=== PATIENT | male | born 1955 | race Caucasian/White ===

== ENCOUNTER 2020-12-26 08:56 | Outpatient (REF) | payer MEDICAID, SELFPAY | END 2020-12-26 08:57 | disposition home or self-care (01) | LOC: HO.HMGCX 08:56 | PROVIDERS: PCP Internal Medicine; Visit Provider Internal Medicine | DX: Z13.89 Encounter for screening for other disorder (principal) ==

== ENCOUNTER 2021-01-29 10:04 | Outpatient (REF) | payer MEDICAID, SELFPAY | END 2021-01-29 10:05 | disposition home or self-care (01) | LOC: HO.HMGCX 10:04 | PROVIDERS: PCP Internal Medicine; Visit Provider Internal Medicine | DX: Z13.89 Encounter for screening for other disorder (principal) ==

== ENCOUNTER 2021-02-12 09:00 | Outpatient (RCR) | payer MEDICAID, SELFPAY ==
--- NOTE | 2020-12-26 10:46 | MHC.PT.EP ---
[facility] [place] [facility] [place] [facility] [place] Office [address] Megan Hogan [address] [phone] F: [phone] F: [phone] F: [phone] F: [phone] Physical Therapy Plan of Care Date of Evaluation: 12/26/20 Date of Surgery: Diagnosis: CHRONIC MIDLINE LBP Assessment: 65 YO MALE REF TO PT W H/O PROGRESSIVE Rt L/S PAIN- HE HAS A H/O ELTON TKR, AND CURRENTLY HAS (+) PELVIC ASYMM CREATING A LLI. Pt IS RETIRED- HE HAS DECR POSTURE/ BODY MECH AWARENESS, GEN PROX LEs AND CORE WEAKNESS, (+) PELVIC ASYMM NOTED, (+) SOFT TISSUE TENSION IN ELTON L/S PS MM, AND DECR TRUNK/ PROX LEs HYPOMOBILITY. HE DENIES BOWEL/ BLADDER SXS OR MOTOR DEFICITS. FUNCTIONALLY, Pt HAS DECR WIL TO STANDING, WALKING, GETTING IN/OUT OF CAR AT TIMES, AND SLEEPING COMFORTABLY. HIS LS XRAYS ARE PENDING. Pt IS A GOOD PT CANDIDATE TO ADDRESS THE ABOVE AND IMPROVE SELF-SX MGMT TO ALLOW IMPROVED FUNCT MMOB WIL. Frequency and Duration: The patient will be seen 2 X wk X 5 wks Short Term Goals: DECR Pt'S LBP TO 2-3/10 IN 2 WKS Pt DEMON IMPROVED SELF-CORRECT OF POSTURE AND BODY MECH TO REDUCE L/S PAIN IN 2 WKS Long-Term Goals: Pt RESUME REG ADLs EVIDENT W IMPROVED OSWESTRY SCORE BY 10 POINTS (23/50 AT EVAL) IN 5 WKS Pt INDEP HEP FOR STRENGTHENING AND FLEXIB AND SX MGMT IN 5 WKS Treatment Plan: Modalities to reduce pain, spasms and effusion. Manual therapy to restore motion and function. Therapeutic exercise to improve strength and flexibility. Neuromuscular re-education for posture and balance. Therapeutic activities to return to functional activities of daily living. Electronically signed by: Kiki Gaytan,PT Please sign and return to therapist. Thank you for your referral.
--- NOTE | ~2021-02-12 | XR_ITS ---
EXAMINATION: XR LUMBOSACRAL SPINE CLINICAL INFORMATION: Low back pain. COMPARISON: None TECHNIQUE: Three views of the lumbosacral spine. FINDINGS: There is normal lumbar lordosis. The vertebral heights, alignment and disc heights are normal. There is mild ventral endplate spondylosis L3, L4 and L5 vertebra. No lytic or sclerotic process seen. The paravertebral soft tissues are normal. XR/XR lumbar spine 2-3V IMPRESSION: Degenerative ventral spondylosis lower lumbar spine. No visible acute fracture or dislocation seen.
--- NOTE | ~2021-02-12 | XR_ITS ---
EXAMINATION: XR LUMBOSACRAL SPINE CLINICAL INFORMATION: Low back pain COMPARISON: None TECHNIQUE: Three views of the lumbosacral spine. FINDINGS: There is normal lumbar segmentation with 5 nonrib-bearing lumbar vertebrae of normal height and normal lumbar lordosis. There is no lumbar vertebral compression or destructive process or spondylolisthesis. There are degenerative disc changes L4-L5 with disc narrowing and vertebral spurring. Mild facet degeneration present L4-S1. There is multilevel vertebral body spurring. The SI joints and visualized sacrum are unremarkable. XR/XR lumbar spine 2-3V IMPRESSION: 1. Degenerative disc changes L4-L5. 2. Facet degeneration L4-S1. 3. No vertebral compression or destructive process.
--- NOTE | 2021-02-12 09:56 | MHC.PT.EP ---
[facility] [place] Office [place] Office [place] Office [address] Megan Hogan [address] [phone] F: [phone] F: [phone] F: [phone] F: [phone] Physical Therapy Plan of Care Date of Evaluation: Date of Surgery: Diagnosis: CHRONIC MIDLINE LBP Assessment: 65 YO MALE REF TO PT W H/O PROGRESSIVE Rt L/S PAIN- HE HAS A H/O EL[place] TKR, AND CURRENTLY HAS (+) PELVIC ASYMM CREATING A LLI. Pt IS RETIRED- HE HAS DECR POSTURE/ BODY MECH AWARENESS, GEN PROX LEs AND CORE WEAKNESS, (+) PELVIC ASYMM NOTED, (+) SOFT TISSUE TENSION IN EL[place] L/S PS MM, AND DECR TRUNK/ PROX LEs HYPOMOBILITY. HE DENIES BOWEL/ BLADDER SXS OR MOTOR DEFICITS. FUNCTIONALLY, Pt HAS DECR WIL TO STANDING, WALKING, GETTING IN/OUT OF CAR AT TIMES, AND SLEEPING COMFORTABLY. HIS LS XRAYS ARE PENDING. Pt IS A GOOD PT CANDIDATE TO ADDRESS THE ABOVE AND IMPROVE SELF-SX MGMT TO ALLOW IMPROVED FUNCT MMOB WIL. Frequency and Duration: The patient will be seen 2 X wk X 5 wks Short Term Goals: DECR Pt'S LBP TO 2-3/10 IN 2 WKS - met Pt DEMON IMPROVED SELF-CORRECT OF POSTURE AND BODY MECH TO REDUCE L/S PAIN IN 2 WKS - met Ict Development Manager Goals: Pt RESUME REG ADLs EVIDENT W IMPROVED OSWESTRY SCORE BY 10 POINTS (23/50 AT EVAL) IN 5 WKS Pt INDEP HEP FOR STRENGTHENING AND FLEXIB AND SX MGMT IN 5 WKS - met Treatment Plan: Modalities to reduce pain, spasms and effusion. Manual therapy to restore motion and function. Therapeutic exercise to improve strength and flexibility. Neuromuscular re-education for posture and balance. Therapeutic activities to return to functional activities of daily living. Electronically signed by: Judy Rios PT Please sign and return to therapist. Thank you for your referral.
== END 2021-02-12 09:57 | disposition home or self-care (01) ==
LOC: HO.PTCHIC 09:00
PROVIDERS: PCP Internal Medicine; Visit Provider Internal Medicine
DX: M54.5 Low back pain (principal)
CPT/HCPCS: 72100; 97014; 97110; 97140; 97162

== ENCOUNTER → 2022-02-20 09:26 | Outpatient (BNVA) | payer MEDICARE, MEDICAID, SELFPAY | PROVIDERS: PCP Internal Medicine; Visit Provider Physician Assistant | DX: Z01.818 Encounter for other preprocedural examination (principal) | CPT/HCPCS: 99202 ==

== ENCOUNTER → 2022-02-24 12:53 | Day surgery (SDC) | payer MEDICARE, MEDICAID, SELFPAY ==
--- NOTE | 2022-02-24 12:39 | HO.ANESPROP2 ---
[facility] Active Problems Active Problems: All Active Problems (Updated 02/21/22 @ 11:41 by Deborah Hess RN) Encounter for screening colonoscopy (Acute) Past Medical History Medical History Asthma Diabetes Elevated cholesterol HTN (hypertension) Sciatica Shoulder pain with history of repair of rotator cuff Sleep apnea Family History Family History Father Heart disease HTN (hypertension) Mother No problems noted. Sister Diabetes Family history of problems with anesthesia: No Surgical History Surgical History History of carpal tunnel release Hx of elbow surgery Hx of eye surgery Hx of hernia repair Hx of knee surgery Hx of tonsillectomy History of Problems with Anesthesia: No Social History Social History Household Members: Spouse Alcohol intake: current Patient Tobacco Use Status: Never used Tobacco Substance Use Type: Marijuana Substance Use Type Other:: edible Substance Use Frequency: Daily Are you DNR?: No Advance Directives: No Advance Directives Information Provided: Yes Current 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 status: retired Meds Allergies Allergy/AdvReac Type Severity Reaction Status Date / Time iron Allergy Severe Rash Verified 02/24/22 13:06 Home Medications Medication Instructions Recorded Confirmed Last Taken Type aspirin 81 mg tablet,delayed 81 mg PO DAILY 02/20/22 02/24/22 02/24/22 05:30 History release atorvastatin 40 mg tablet 40 mg PO BEDTIME 02/20/22 02/24/22 Unknown History celecoxib 200 mg capsule 200 mg PO DAILY 02/20/22 02/24/22 02/24/22 05:30 History cholecalciferol (vitamin D3) 25 25 mcg PO DAILY 02/20/22 02/24/22 02/24/22 05:30 History mcg (1,000 unit) capsule cyanocobalamin (vitamin B-12) 1,000 mcg PO DAILY 02/20/22 02/24/22 02/24/22 05:30 History 1,000 mcg tablet (Vitamin B-12) empagliflozin 25 mg tablet 25 mg PO DAILY 02/20/22 02/24/22 Unknown History (Jardiance) glipizide 5 mg tablet 2.5 mg PO DAILY 02/20/22 02/24/22 Unknown History lisinopril 10 mg tablet 10 mg PO DAILY 02/20/22 02/24/22 02/24/22 05:30 History metformin 1,000 mg tablet 1,000 mg PO BID 02/20/22 02/24/22 Unknown History metoprolol tartrate 50 mg tablet 50 mg PO BID 02/20/22 02/24/22 02/24/22 05:30 History montelukast 10 mg tablet 10 mg PO DAILY 02/20/22 02/24/22 Unknown History Exam Exam Date and Time: February 24, 2022 1239 Airway Mallampati Class: II TM Dist: >3cm Neck ROM: Full Loose/Missing/Broken Teeth: No Heart: regular rate and rhythm Lungs: clear Assessment and Plan Assessment Anesthesia Assessment: Anesthesia Plan Discussed and Chart Reviewed Final Anesthetic Review Family History of Problems with Anesthesia: No History of Problems with Anesthesia: No NPO: Yes ASA Class: III Final Preanesthetic Review: No Changes in Pt Med Stat, Meds/Allgs Chart Reviewed, Consent Obtained/Reviewed and Anes Risks/Benef Reviewed Patient Risk: Intermediate Procedure Risk: Intermediate Assessment/Block/Sedation in SS: Assess/Block/Sedation-SS Anesthetic Plan Anesthetic Plan: MAC: and Agree w/ Assess. and Plan Disposition: Standard PACU
--- NOTE | 2022-02-24 12:47 | MHC.SHP ---
Pre-Procedural Eval Section A Date of Service: 02/24/22 The patient is an INPATIENT: No The History & Physical has been completed within 30 days and I have reviewed it.: Yes Section B Chief Complaint: screening Allergies: Allergies Allergy/AdvReac Type Severity Reaction Status Date / Time iron Allergy Severe Rash Verified 02/20/22 09:29 Plan Diagnosis/Plan: Change (colonoscopy cancelled due to new onset AF) Pt arrived for colonoscopy procedure. EKG showed new onset AF. Pt hemodynamically stable and denies chest pain or shortness of breath. Pt transferred to the ER for further management. Colonoscopy will be rescheduled after Cardiac workup is completed.
--- NOTE | 2022-02-24 12:47 | PM.OP ---
Brief Operative Note Date of Service: 02/24/22 Procedure: COLONOSCOPY TILL CECUM WITH Consent: Indications for the procedure and potential complications of bleeding, perforation, reaction to medications and missed diagnosis were discussed with the patient and informed consent was obtained. Instrument: Olympus PCF H 190 L variable stiffness pediatric colonoscope Monitoring: Vital signs and clinical assessment, intermittent blood pressure monitoring, continuous EKG monitoring, Pulse oximetry and Carbon Dioxide monitoring were done throughout the procedure. Colon withdrawl time was [] minutes. Procedure: The patient was placed in the left lateral decubitis position and pre-procedure medications were administered. After a digital rectal examination of the ano-rectum, the video colonoscope was inserted into the rectum and advanced through the colon to the cecum. The colonoscope was slowly withdrawn in a retrograde panoramic fashion and the colon mucosa was carefully examined including a retroflexed view of the rectum. Findings and interventions are described below. Procedure Difficulty: [Without difficulty] [LLQ pressure applied to intubate the transverse colon/cecum] Findings: Terminal Ileum: Not evaluated Cecum: Normal Ascending Colon: Normal Transverse Colon: Normal Descending Colon: Normal Sigmoid Colon: Moderate diverticulosis Rectum: Normal Ano-rectum: Moderate internal hemorrhoids Colon preparation: [Excellent] [Good] [Fair] [poor] Impression and Post Procedure Diagnosis: Colonoscopy Findings: [] polyps removed Moderate diverticulosis seen in the []colon Moderate hemorrhoids on retroflexed exam. Plan: Await pathology results Patient has an appointment on 03/19/22 in the GI Clinic with EZ Chang. Repeat Colonoscopy interval based on path results - in 3-5 years if polyps are adenomatous and 10 years if polyps are hyperplastic. Above findings were reviewed with the patient and [colon polyps] and [diverticulosis] handouts were given in the discharge area Surgeon: Eddy Gomez MD Was an Police Officer Booking used for this Procedure?: No
--- NOTE | 2022-02-24 12:48 | W.PM.OPN ---
Operative Note Operative Note Date of Service: 02/24/22
[2022-02-24 13:09] VITALS: BMI 47.0
[2022-02-24 13:24] LABS: Glucose, Whole Blood 125 mg/dL (60-115)
--- NOTE | 2022-02-24 13:37 | ECG_ITS ---
Test Reason : IRREGULAR HEART RATE Blood Pressure : / mmHG Vent. Rate : 085 BPM Atrial Rate : 000 BPM P-R Int : 000 ms QRS Dur : 100 ms QT Int : 346 ms P-R-T Axes : 000 101 015 degrees QTc Int : 411 ms Atrial fibrillation Rightward axis Low voltage QRS Septal infarct , age undetermined Abnormal ECG No previous ECGs available Referred By: Noel Shine Electronically Signed By:Sp Akhtar
--- NOTE | 2022-02-24 13:40 | PC.NURSE ---
EKG entered for question of afib per anesthesia
--- NOTE | 2022-02-24 14:13 | PC.NURSE ---
EKG showing an abnormal rhythm. Dr. Gomez recommending transfer to ED, pt spoke to and in agreement to be transferred
--- NOTE | 2022-02-24 14:27 | PM.EVENT ---
Event Note Date of Service: 02/24/22 Event Note: Pt arrived for colonoscopy procedure. EKG showed new onset AF. Pt hemodynamically stable and denies chest pain or shortness of breath. Pt transferred to the ER for further management. Colonoscopy will be rescheduled after Cardiac workup is completed.
== END | disposition home or self-care (01) ==
PROVIDERS: PCP Internal Medicine; Visit Provider Internal Medicine Gastroenterology
DX: Z12.11 Encounter for screening for malignant neoplasm of colon (principal); Z53.09 Procedure and treatment not carried out because of other contraindication; R94.31 Abnormal electrocardiogram [ECG] [EKG]
CPT/HCPCS: 82947; 93005

== ENCOUNTER 2022-02-24 14:58 | Emergency (ER) | payer MEDICARE, MEDICAID, SELFPAY ==
--- NOTE | ~2022-02-24 | XR_ITS ---
EXAMINATION: XR CHEST CLINICAL INFORMATION: New onset Atrial fibrillation COMPARISON: None TECHNIQUE: Frontal view of the chest was obtained. FINDINGS: No significant abnormality is noted involving the heart, lungs, mediastinum, bony thorax or soft tissues. Some left basilar atelectasis is present. There has been surgical resection of the distal end of the right clavicle XR/XR chest 1V IMPRESSION: No acute intrathoracic disease
[2022-02-24 14:59] VITALS: BP 125/75; PULSE 96; RESP 18; TEMP 36.6; O2SAT 98; BMI 47.0
--- NOTE | 2022-02-24 15:27 | ED.GENADULT ---
HPI - General Adult General Chief complaint: General Medical Stated complaint: abnormal heart rate Time Seen by Provider: 02/24/22 15:27 Source: patient Mode of arrival: wheelchair Limitations: no limitations History of Present Illness HPI narrative: Comes to emergency room from the endoscopy suite. Today, patient was supposed to get a colonoscopy. Before they started, it was noted that patient was in atrial fibrillation. Patient does not have history of AFib. Patient takes aspirin and celecoxib. Patient denies any symptoms. Patient feels well. Patient's rate has been well controlled, less than 100. Related Data Home Medications Medication Instructions Recorded Confirmed aspirin 81 mg tablet,delayed 81 mg PO DAILY 02/20/22 02/24/22 release atorvastatin 40 mg tablet 40 mg PO BEDTIME 02/20/22 02/24/22 celecoxib 200 mg capsule 200 mg PO DAILY 02/20/22 02/24/22 cholecalciferol (vitamin D3) 25 25 mcg PO DAILY 02/20/22 02/24/22 mcg (1,000 unit) capsule cyanocobalamin (vitamin B-12) 1,000 mcg PO DAILY 02/20/22 02/24/22 1,000 mcg tablet (Vitamin B-12) empagliflozin 25 mg tablet 25 mg PO DAILY 02/20/22 02/24/22 (Jardiance) lisinopril 10 mg tablet 10 mg PO DAILY 02/20/22 02/24/22 metformin 1,000 mg tablet 1,000 mg PO BIDWM 02/20/22 02/24/22 metoprolol tartrate 50 mg tablet 50 mg PO BID 02/20/22 02/24/22 montelukast 10 mg tablet 10 mg PO BEDTIME 02/20/22 02/24/22 albuterol sulfate 90 mcg/actuation 1 - 2 inh inhalation Q4-6H PRN 02/24/22 02/24/22 aerosol inhaler (Ventolin HFA) Shortness Of Breath fluticasone propionate 50 2 spray intranasal DAILY 02/24/22 02/24/22 mcg/actuation nasal spray,suspension glipizide 5 mg tablet, extended 1 tab PO DAILY 02/24/22 02/24/22 release 24 hr Allergies Allergy/AdvReac Type Severity Reaction Status Date / Time iron Allergy Severe Rash Verified 02/24/22 13:06 Review of Systems Review of Systems: Constitutional : No Weight loss, No Fever, No Chills, No Night Sweats, No Fatigue, No Malaise ENT/Mouth : No Hearing loss, No Ear Pain, No Nasal Congestion, No Sinus Pain, No Hoarseness, No sore throat, No Rhinorrhea, No Swallowing Difficulty Eyes: No Eye Pain, No Swelling, No Redness, No Foreign Body, No Discharge, No Vision Changes Cardiovascular : No Chest Pain, No SOB, No Dyspnea on Exertion, No Orthopnea, No Edema, No Palpitations Respiratory : No Cough, No Sputum, No Wheezing, No Smoke Exposure, No Dyspnea Gastrointestinal : No Nausea, No Vomiting, No Diarrhea, No Constipation, No abdominal Pain, No Hematochezia, No Melena Genitourinary : no irregular bleeding, No Dysuria, No Urinary Frequency, No Hematuria, No Urinary Incontinence, No Urgency, No Flank Pain, No Urinary Flow Changes, No Hesitancy Musculoskeletal : No joint pain, No Myalgias, No Joint Swelling Skin : No Skin Lesions, No rash Neuro : No Weakness, No Numbness, No Paresthesias, No Loss of Consciousness, No Dizziness, No Headache Psych : No Anxiety/Panic, No Depression, No SI/HI/AH/VH, No Social Issues, Heme/Lymph: No Bruising, No Bleeding,No Lymphadenopathy Endocrine : No Polyuria, No Polydipsia, No Temperature Intolerance PMFSH Past Medical History Medical History Asthma Diabetes Elevated cholesterol HTN (hypertension) Sciatica Shoulder pain with history of repair of rotator cuff Sleep apnea Surgical History History of carpal tunnel release Hx of elbow surgery Hx of eye surgery Hx of hernia repair Hx of knee surgery Hx of tonsillectomy Family History Family History Father Heart disease HTN (hypertension) Mother No problems noted. Sister Diabetes Social History Social History Household Members: Spouse Alcohol intake: current Patient Tobacco Use Status: Never used Tobacco Substance Use Type: Marijuana Advance Directives: No Advance Directives Information Provided: No Current 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 status: retired Physical Exam ED Vital Signs: Vital Signs - 24 hr 02/24/22 14:59 02/24/22 16:07 02/24/22 18:12 Temperature 98 F 98.7 F 98.3 F Pulse Rate 96 78 84 Respiratory Rate 18 14 13 Blood Pressure 125/75 129/93 H 105/66 Pulse Oximetry 98 95 98 Oxygen Delivery Method Room Air Room Air Room Air BMI result Body Mass Index 47.0 Const Other: Appearance: Alert. Oriented X3. No acute distress. Well-appearing Eyes: Pupils equal, round and reactive to light. ENT: Pharynx normal. Neck: Normal inspection. Neck supple. No lymph nodes noted. No crepitus CVS: Regularly regular heart rate, in the 70s. Pulses normal. Normal S1 and S2 Respiratory: No respiratory distress. Breath sounds normal. No Wheezing. No rales Abdomen: Soft and nontender. No rigidity. No distention. Skin: Skin warm and dry. Flushedl skin color. Normal skin turgor. Extremities: No lower extremity edema. No Lacerations. No Rash Neuro: Oriented X 3. No motor deficit. No sensory deficit. Moving all extremities. No slurred speech. CN 2 through 12 grossly intact Psych: calm, cooperative, normal affect Course Course Course Narrative: Patient is asymptomatic. All the labs and imaging are pending. Vitals are stable, patient is asymptomatic. Today, the lab is having trouble posting troponin and BNP, they have been pending for almost 2 hours now. I discussed the patient with Dr. Cano, recommends to start Eliquis. Patient states that he is not ready to start anticoagulation yet. He will talk to his primary care physician 1st and Dr. Cano in the office visit Patient is aware of the risks atrial fibrillation, including stroke. Troponin and BNP negative. Medical Decision Making Lab Data Result diagrams: 02/24/22 16:03 02/24/22 16:01 Labs: Lab Results 02/24/22 02/24/22 02/24/22 Range/Units 16:01 16:01 16:03 WBC 6.3 (4.8-10.8) X10*3/uL RBC 6.43 H (4.60-5.80) X10*6/uL Hgb 17.6 (14.0-18.0) g/dl Hct 55.1 H (42.0-52.0) % MCV 85.7 (80.0-98.0) fL MCH 27.4 (27.0-33.0) pg MCHC 31.9 (31.0-36.0) g/dl RDW 17.3 H (11.0-16.0) % Plt Count 143 L (160-400) X10*3/uL MPV 9.3 L (9.4-12.4) fL Immature Gran % (Auto) 0.6 H (0.0-0.4) % Neut % (Auto) 72.8 (45-73) % Lymph % (Auto) 18.8 L (20-40) % [place] % (Auto) 5.4 (2-11) % Eos % (Auto) 1.9 (0-4) % Baso % (Auto) 0.5 (0-2) % Lymph # (Auto) 1.2 (1.2-4.9) X10*3/uL [place] # (Auto) 0.3 (0.1-1.2) X10*3/uL Eos # (Auto) 0.1 (0.0-0.4) X10*3/uL Baso # (Auto) 0.0 (0.0-0.2) X10*3/uL Abs Immat Gran (auto) 0.04 H (0.00-0.03) X10*3/uL Absolute Neuts (auto) 4.6 (2.0-8.3) x10*3/uL Absolute Nucleated RBC 0.000 (0.0-0.012) X10*3/uL Nucleated RBC % (auto) 0.0 (0.0-0.2) /100WBC PT 13.6 H (9.9-13.0) SEC INR 1.2 H (0.9-1.1) Sodium 136 (135-145) mmol/L Potassium 4.5 (3.3-5.1) mmol/L Chloride 104 (96-108) mmol/L Carbon Dioxide 23 (22-29) mmol/L Anion Gap 14 (12-20) BUN 14 (9-16) mg/dL Creatinine 0.95 (0.5-1.4) mg/dL Estim Creat Clear Calc 103.1 Estimated GFR > 60 Random Glucose 204 H (60-115) mg/dL Calcium 8.9 (8.4-10.2) mg/dL Magnesium 2.1 (1.6-2.6) mg/dL Total Bilirubin 1.2 H (0.0-1.0) mg/dL Direct Bilirubin 0.4 (0.0-0.5) mg/dL AST 21 (5-37) U/L ALT 23 (0-40) U/L Alkaline Phosphatase 85 (39-117) U/L Troponin I High Sens (<3.5-35.0) ng/L B-Natriuretic Peptide (<100) pg/mL Total Protein 7.6 (6.5-8.0) g/dL Albumin 4.2 (3.5-5.0) g/dL Specimen Comment 02/24/22 02/24/22 Range/Units 18:15 18:38 WBC (4.8-10.8) X10*3/uL RBC (4.60-5.80) X10*6/uL Hgb (14.0-18.0) g/dl Hct (42.0-52.0) % MCV (80.0-98.0) fL MCH (27.0-33.0) pg MCHC (31.0-36.0) g/dl RDW (11.0-16.0) % Plt Count (160-400) X10*3/uL MPV (9.4-12.4) fL Immature Gran % (Auto) (0.0-0.4) % Neut % (Auto) (45-73) % Lymph % (Auto) (20-40) % [place] % (Auto) (2-11) % Eos % (Auto) (0-4) % Baso % (Auto) (0-2) % Lymph # (Auto) (1.2-4.9) X10*3/uL [place] # (Auto) (0.1-1.2) X10*3/uL Eos # (Auto) (0.0-0.4) X10*3/uL Baso # (Auto) (0.0-0.2) X10*3/uL Abs Immat Gran (auto) (0.00-0.03) X10*3/uL Absolute Neuts (auto) (2.0-8.3) x10*3/uL Absolute Nucleated RBC (0.0-0.012) X10*3/uL Nucleated RBC % (auto) (0.0-0.2) /100WBC PT (9.9-13.0) SEC INR (0.9-1.1) Sodium (135-145) mmol/L Potassium (3.3-5.1) mmol/L Chloride (96-108) mmol/L Carbon Dioxide (22-29) mmol/L Anion Gap (12-20) BUN (9-16) mg/dL Creatinine (0.5-1.4) mg/dL Estim Creat Clear Calc Estimated GFR Random Glucose (60-115) mg/dL Calcium (8.4-10.2) mg/dL Magnesium (1.6-2.6) mg/dL Total Bilirubin (0.0-1.0) mg/dL Direct Bilirubin (0.0-0.5) mg/dL AST (5-37) U/L ALT (0-40) U/L Alkaline Phosphatase (39-117) U/L Troponin I High Sens < 3.5 (<3.5-35.0) ng/L B-Natriuretic Peptide 82 (<100) pg/mL Total Protein (6.5-8.0) g/dL Albumin (3.5-5.0) g/dL Specimen Comment DELAY Imaging Data Chest x-ray: Radiologist's impression: FINDINGS: No significant abnormality is noted involving the heart, lungs, mediastinum, bony thorax or soft tissues. Some left basilar atelectasis is present. There has been surgical resection of the distal end of the right clavicle XR/XR chest 1V IMPRESSION: No acute intrathoracic disease ECG Data Attestation: I personally reviewed and interpreted this ECG as follows: (Atrial fibrillation, heart rate 89, occasional PVCs, QTC 420) Discharge Plan Discharge Clinical Impression: Atrial fibrillation, new onset Patient Disposition: Home, Self-Care Instructions: A-fib (Atrial Fibrillation) (ED) Additional Instructions: You declined to start anticoagulation at this time. Please follow-up with your workers' compensation mediator and with her primary care physician tomorrow. If you have any worsening or new symptoms, please return to the emergency room or call 911 Prescriptions: No Action glipizide 5 mg tablet extended release 24 hr 1 tab PO DAILY albuterol sulfate [Ventolin HFA] 90 mcg/actuation HFA aerosol inhaler 1 - 2 inh inhalation Q4-6H PRN (Reason: Shortness Of Breath) fluticasone propionate 50 mcg/actuation spray,suspension 2 spray intranasal DAILY aspirin 81 mg tablet,delayed release (DR/EC) 81 mg PO DAILY atorvastatin 40 mg tablet 40 mg PO BEDTIME Jardiance 25 mg tablet 25 mg PO DAILY lisinopril 10 mg tablet 10 mg PO DAILY metformin 1,000 mg tablet 1,000 mg PO BIDWM metoprolol tartrate 50 mg tablet 50 mg PO BID montelukast 10 mg tablet 10 mg PO BEDTIME cyanocobalamin (vitamin B-12) [Vitamin B-12] 1,000 mcg tablet 1,000 mcg PO DAILY cholecalciferol (vitamin D3) 25 mcg (1,000 unit) capsule 25 mcg PO DAILY celecoxib 200 mg capsule 200 mg PO DAILY Referrals: Sp Cano MD [Physician] - 2 days
--- NOTE | 2022-02-24 15:28 | ECG_ITS ---
Test Reason : AFIB Blood Pressure : / mmHG Vent. Rate : 089 BPM Atrial Rate : 000 BPM P-R Int : 000 ms QRS Dur : 094 ms QT Int : 346 ms P-R-T Axes : 000 101 006 degrees QTc Int : 420 ms Atrial fibrillation with premature ventricular or aberrantly conducted complexes Rightward axis Anteroseptal infarct (cited on or before 24-FEB-2022) Abnormal ECG When compared with ECG of 24-FEB-2022 13:44, Questionable change in initial forces of Anterior leads Referred By: Marlee Doherty Electronically Signed By:Sp Akhtar
[2022-02-24 16:07] VITALS: BP 129/93; PULSE 78; RESP 14; TEMP 37.1; O2SAT 95
[2022-02-24 16:08] LABS: MANUAL DIFF FLAG NO
[2022-02-24 16:12] LABS: Basophils Percent Auto 0.5 % (0-2); Eosinophils Absolute Auto 0.1 X10*3/uL (0.0-0.4); Eosinophils Percent Auto 1.9 % (0-4); Hemoglobin 17.6 g/dl (14.0-18.0); Imm Gran Abs Auto 0.04 X10*3/uL (0.00-0.03); Imm Gran Pct Auto 0.6 % (0.0-0.4); Lymphocytes Absolute Auto 1.2 X10*3/uL (1.2-4.9); Lymphocytes Percent Auto 18.8 % (20-40); Mean Corpuscular HGB Conc 31.9 g/dl (31.0-36.0); Mean Corpuscular Hemoglobin 27.4 pg (27.0-33.0); Mean Corpuscular Volume 85.7 fL (80.0-98.0); Mean Platelet Volume 9.3 fL (9.4-12.4); Monocytes Absolute Auto 0.3 X10*3/uL (0.1-1.2); Monocytes Percent Auto 5.4 % (2-11); Neutrophils Absolute Auto 4.6 x10*3/uL (2.0-8.3); Neutrophils Percent Auto 72.8 % (45-73); Platelet Count 143 X10*3/uL (160-400); Red Blood Count 6.43 X10*6/uL (4.60-5.80); Red Cell Distribution Width 17.3 % (11.0-16.0); White Blood Count 6.3 X10*3/uL (4.8-10.8)
[2022-02-24 16:23] LABS: INTERNATIONAL NORM RATIO 1.2 (0.9-1.1)
[2022-02-24 16:25] LABS: Alanine Aminotransferase 23 U/L (0-40); Albumin Level 4.2 g/dL (3.5-5.0); Alkaline Phosphatase 85 U/L (39-117); Anion Gap 14 (12-20); Aspartate Amino Transferase 21 U/L (5-37); Bilirubin Direct 0.4 mg/dL (0.0-0.5); Bilirubin Total 1.2 mg/dL (0.0-1.0); Blood Urea Nitrogen 14 mg/dL (9-16); Calcium 8.9 mg/dL (8.4-10.2); Carbon Dioxide 23 mmol/L (22-29); Chloride 104 mmol/L (96-108); Creatinine Clr Calc Pharmacy 103.1; Estimated Glomerular Filt Rate > 60; Glucose Random 204 mg/dL (60-115); Magnesium 2.1 mg/dL (1.6-2.6); Potassium 4.5 mmol/L (3.3-5.1); Sodium 136 mmol/L (135-145); Total Protein 7.6 g/dL (6.5-8.0)
[2022-02-24 16:45] LABS: Hematocrit 55.1 % (42.0-52.0)
[2022-02-24 16:49] LABS: Prothrombin Time 13.6 SEC (9.9-13.0)
[2022-02-24 18:12] VITALS: BP 105/66; PULSE 84; RESP 13; TEMP 36.8; O2SAT 98
[2022-02-24 18:17] LABS: Delay - Chemistry DELAY
[2022-02-24 19:04] LABS: B Type Natriuretic Peptide 82 pg/mL (<100); Troponin-I High Sensitivity < 3.5 ng/L (<3.5-35.0)
--- NOTE | 2022-02-24 20:19 | PC.NURSE ---
pt has no cc/o paion or sob. asking for dc
== END 2022-02-24 20:19 | disposition home or self-care (01) ==
PROVIDERS: Emergency Provider Emergency Medicine
DX: I48.91 Unspecified atrial fibrillation (principal); I10 Essential (primary) hypertension; E11.9 Type 2 diabetes mellitus without complications; J45.909 Unspecified asthma, uncomplicated; Z79.82 Long term (current) use of aspirin; Z79.899 Other long term (current) drug therapy
CPT/HCPCS: 36415; 71045; 80048; 80076; 82947; 83735; 83880; 84484; 85025; 85610; 93005; 99283; 99284

== ENCOUNTER → 2022-03-06 14:37 | Outpatient (BNVA) | payer MEDICARE, MEDICAID, SELFPAY | PROVIDERS: PCP Internal Medicine; Referring Provider Internal Medicine; Visit Provider Nurse Practitioner Family | DX: I48.91 Unspecified atrial fibrillation (principal); I10 Essential (primary) hypertension; G47.30 Sleep apnea, unspecified | CPT/HCPCS: 93005; 99202 ==

== ENCOUNTER → 2022-03-21 07:44 | Outpatient (REF) | payer MEDICARE, MEDICAID, SELFPAY ==
--- NOTE | ~2022-03-21 | NM_ITS ---
Myocardial perfusion study Indication: Shortness of breath on exertion Technique: The patient was brought in for a Lexiscan perfusion study on 03/21/2022. Patient performed low-level exercise and was injected 0.4 mg of Lexiscan intravenously. Within a minute of injection, 45 mCi of sestamibi was given intravenously. Images were obtained using the SPECT gamma camera interlaced with the gating device. Images were obtained in supine position. Resting perfusion study was performed on 03/24/2022. Patient was administered 45 mCi of sestamibi intravenously at rest. Images were then obtained in supine position. Images obtained with and without CT attenuation. Total DLP 177 mGy-cm. Images were processed with the software and compared side to side in short axis, horizontal long axis and vertical long axis views. Findings: The stress perfusion study showed non attenuated images show some thinning of the distal lateral and apical wall of the LV myocardium with minimal reduction in radiotracer uptake. Attenuation corrected images show mildly reduced uptake in the apex as well as mildly reduced uptake in the basal anterolateral wall of the LV myocardium. Remainder of the LV myocardium normally perfused. The gated study shows normal LV systolic function with calculated LVEF of 59%. LV cavity is normal in size. The gated study shows normal systolic wall thickening and contraction of segments. Resting study shows non attenuated images show normal uptake of radiotracer in all segments of LV myocardium. Gating at rest reveals normal systolic wall motion with ejection fraction at greater than 60%. The findings are consistent with equivocal for small area all reversible defect of the apex and distal lateral wall.. NM/NM cardiolite stress test Impression: 1. Myocardial perfusion imaging study shows equivocal for possible apical and distal lateral wall ischemia 2. Gated LVEF is 59% 3. Transient ischemic dilatation not present EKG is nondiagnostic for ischemia
--- NOTE | 2022-03-21 07:48 | CA_ITS ---
Acquisition Time: 2022-03-21 08:08:35 Total Exercise Time: 00:02:00 Test Indications: AFIB Medications: SEE CHART Protocol: LEXISCAN Max HR: 093 BPM 60% of Pred: 155 BPM Max BP: 132/078 mmHG Max Work Load: 1.0 METS Pharmacological stress test with lexiscan injection, while sitting and kicking his legs, without anginal symptoms, with isolated PVCs, with normotensive response to injection, with nondiagnostic EKG for ischemia. Nuclear images pending. Test reviewed with Dr Akhtar Referred By: Candice Houston Overread By: CANDICE HOUSTON
== END ==
LOC: HO.CARD 07:44
PROVIDERS: Visit Provider Nurse Practitioner Family
DX: I48.91 Unspecified atrial fibrillation (principal); R06.02 Shortness of breath
CPT/HCPCS: 78452; 93017; A9500; J0280; J2785

== ENCOUNTER → 2022-03-24 14:22 | Outpatient (REF) | payer MEDICARE, MEDICAID, SELFPAY ==
--- NOTE | 2022-03-24 14:26 | HM_ITS ---
Conclusion: 1. Patient was monitor for total period of 3 days 2. Baseline was atrial fibrillation with average heart of 86 beats per minute with adequate rate control 3. Total of 20,765 PVCs accounting for 5.5% of total beats account for frequent PVCs 4. No significant pauses or bradycardia 5. No patient reported events MTDD
--- NOTE | 2022-03-24 14:26 | CA_ITS ---
Transthoracic Echocardiogram Patient (Last, First, Middle): Olive Tobias, Gender: Male Date of : 1955 Age: 66 Procedure Date: 03/24/2022 Procedure Type: Transthoracic Echocardiogram Location: OP Height: 170.18 cm Weight: 132.45 kg BSA: 2.37 m2 Heart Rate: bpm BP: 120 / 80 mmHg Disability Specialist: DAVID Referring MD: Candice Houston [employer] Access Analyst: Brenden Martinez MD Symptoms: I48.91 - Unspecified atrial fibrillation Study Quality: Fair ECG Rhythm: Atrial Fibrillation Conclusions: - 1. Normal LV systolic function mild LVH 2. Moderate left atrial enlargement 3. Normal cardiac valvular Doppler 4. Mildly dilated ascending aorta at 3.9 cm 5. No gross pericardial effusion Findings Left Ventricle Normal left ventricular size and systolic function. There is mildly increased left ventricular wall thickness. The visually estimated ejection fraction is between 60-65%. Diastolic function is indeterminate on the basis of available data. Right Ventricle Normal right ventricular cavity size and systolic function. Atria The left atrium is moderately dilated. Interatrial shunt cannot be excluded. The right atrium was not well visualized. Aortic Valve The aortic valve was not well visualized. There is no aortic valve stenosis. There is no aortic valve regurgitation. Mitral Valve The mitral valve was not well visualized. Likely normal mitral valve structure and function. There is no mitral valve regurgitation. There is no mitral valve stenosis. Pulmonic Valve The pulmonic valve was not well visualized. Tricuspid Valve Likely normal tricuspid valve structure and function. There is trace tricuspid valve regurgitation. The right ventricular systolic pressure is normal. The right ventricular systolic pressure is 18 mmHg. Normal right atrial pressure. There is no evidence of pulmonary hypertension. Great Vessels The pulmonary artery was not well visualized. There is mild dilatation of the ascending aorta measuring 3.90 cm. Venous The inferior vena cava is normal in size and collapses greater than 50% with inspiration. Pericardium/Pleural There is no evidence of pericardial effusion. Prior Study Comparison No prior study available for comparison. Measurements 2D Linear Measurements IVSd: 1.33 0.6-0.9/0.6-1.0 cm LVIDd: 4.41 3.9-5.3/4.2-5.9 cm LVIDd Index: 1.86 2.4-3.2/2.2-3.1 cm/m2 LVIDs: 2.48 2.0-3.6 cm LVPWd: 1.24 0.7-1.1 cm LA Diam: 4.60 2.7-3.8/3.0-4.0 cm LAIDs Index: 1.94 1.5-2.3 cm/m2 LV Mass: 313.72 67-162/88-224 g LV Mass Index: 132.37 43-95/49-115 g/m2 LVOT Diam: 2.20 3.0+(-)1.3 cm 2D Systolic Function EF 4C: 62.60 >55% EF 2C: 61.60 >55% EF BiP: 62.10 >55% Mitral Valve MV Pk E: 0.99 MV Decel Time: 165.00 E'Lateral: 10.70 E'Medial: 8.38 E/E' Med: 11.90 E/E' Lat: 9.30 PHT: 48.00 MVA PHT: 4.58 Decel [place]: 6.03 Aortic Valve AoV Pk [place]: 1.13 AoV Mn [place]: 0.82 AoV VTI: 0.19 AoV Pk Grad: 5.00 Aov Mn Grad: 3.00 GI Cont.VTI: 2.82 LVOT LVOT Pk [place]: 0.68 LVOT Mn [place]: 0.49 LVOT VTI: 0.14 LVOT Pk Grad: 2.00 LVOT Mn Grad: 1.00 LVOT Diam: 2.20 LVOT Area: 3.80 Diastolic Function MV Pk E: 0.99 E'Medial: 8.38 E/E' Med: 11.90 E' Laterial: 10.70 E/E' Lat: 9.30 Right Ventricle TAPSE (mm): 27.20 TVS' [place]: 14.70 Tricuspid Valve TR Pk [place]: 1.91 TR Pk Grad: 15.00 RA Press: 3.00 RVSP: 18.00 Great Vessels Aorta Sinus of Valsalva: 3.31 2.0-3.[address] [place]: 2.89 1.7-3.4 cm Ao Asc: 3.90 2.1-3.4 cm Updated in Other Vendor System with Status of Final Brenden Martinez MD electronically signed on 03/24/2022 4:09:20 PM with status of Final
== END ==
LOC: HO.CARD 14:22
PROVIDERS: Visit Provider Nurse Practitioner Family
DX: I48.91 Unspecified atrial fibrillation (principal); R06.02 Shortness of breath
CPT/HCPCS: 93242; 93306

== ENCOUNTER → 2022-04-24 13:55 | Outpatient (BNVA) | payer MEDICARE, MEDICAID, SELFPAY | PROVIDERS: PCP Internal Medicine; Referring Provider Internal Medicine; Visit Provider Nurse Practitioner Family | DX: I48.91 Unspecified atrial fibrillation (principal); I10 Essential (primary) hypertension; G47.30 Sleep apnea, unspecified; R06.02 Shortness of breath | CPT/HCPCS: 99212 ==

== ENCOUNTER 2022-05-21 12:56 | Day surgery (SDC) | payer MEDICARE, MEDICAID, SELFPAY ==
[2022-05-15 11:24] VITALS: BMI 45.8
--- NOTE | 2022-05-20 09:50 | P.CONAN_ITS ---
Documented by User: Manisha Salazar NP 05/20/22 09:56 HPI - Anesthesia Eval Consult details Narrative: 66yo M for Cardioversion 02/2022 [place] cx'd for new onset afib. Tx'd to ED [facility] for afib PMFSH Active Problems Active Problems: All Active Problems (Updated 05/15/22 @ 11:22 by Anna Marie Herrera RN) Encounter for screening colonoscopy (Acute) Atrial fibrillation (Acute) Shortness of breath (Acute) Past Medical History Medical History Asthma Atrial fibrillation Diabetes Elevated cholesterol HTN (hypertension) Sciatica Shoulder pain with history of repair of rotator cuff Sleep apnea Family History Family History Father Heart disease HTN (hypertension) Mother Atrial fibrillation Sister Diabetes Family history of problems with anesthesia: No Surgical History Surgical History History of carpal tunnel release Hx of elbow surgery Hx of eye surgery Hx of hernia repair Hx of knee surgery Hx of tonsillectomy History of Problems with Anesthesia: No Social History Social History Household Members: Spouse Alcohol intake: current Patient Tobacco Use Status: Never used Tobacco Use of substances other than those prescribed or required for medical reasons: Yes Substance Use Type: Marijuana Advance Directives: No Advance Directives Information Provided: Yes Current 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 status: retired Meds Allergies Allergy/AdvReac Type Severity Reaction Status Date / Time iron Allergy Severe Rash Verified 04/24/22 14:02 Home Medications Medication Instructions Recorded Confirmed Last Taken Type atorvastatin 40 mg tablet 40 mg PO BEDTIME 02/20/22 05/15/22 02/23/22 History cholecalciferol (vitamin D3) 25 25 mcg PO DAILY 02/20/22 05/15/22 02/24/22 05:30 History mcg (1,000 unit) capsule cyanocobalamin (vitamin B-12) 1,000 mcg PO DAILY 02/20/22 05/15/22 02/24/22 05:30 History 1,000 mcg tablet (Vitamin B-12) empagliflozin 25 mg tablet 25 mg PO DAILY 0605/15/22 02/23/22 History (Jardiance) lisinopril 10 mg tablet 10 mg PO DAILY 02/20/22 05/15/22 02/24/22 05:30 History metformin 1,000 mg tablet 1,000 mg PO BIDWM 02/20/22 05/15/22 02/23/22 History metoprolol tartrate 50 mg tablet 50 mg PO BID 02/20/22 05/15/22 05/21/22 History montelukast 10 mg tablet 10 mg PO BEDTIME 02/20/22 05/15/22 02/23/22 History albuterol sulfate 90 mcg/actuation 1 - 2 inh inhalation Q4-6H PRN 02/24/22 05/15/22 Unknown History aerosol inhaler (Ventolin HFA) Shortness Of Breath fluticasone propionate 50 2 spray intranasal DAILY 02/24/22 05/15/22 02/24/22 History mcg/actuation nasal spray,suspension glipizide 5 mg tablet, extended 1 tab PO DAILY 02/24/22 05/15/22 02/23/22 History release 24 hr acetaminophen 500 mg tablet 1,000 mg PO Q6H PRN Pain 04/24/22 05/15/22 Unknown History apixaban 5 mg tablet (Eliquis) 5 mg PO BID 04/24/22 05/15/22 05/21/22 History Exam Exam Date and Time: May 20, 2022 0950 Height,Weight and Vital Signs: Height 5 ft 7 in Weight 132.8 kg Pertinent Lab Results Pertinent Lab Results: Laboratory Tests 02/24/22 02/24/22 16:01 16:03 WBC 6.3 Hgb 17.6 Hct 55.1 H Plt Count 143 L Sodium 136 Potassium 4.5 Chloride 104 Carbon Dioxide 23 BUN 14 Creatinine 0.95 Narrative Narrative: EKG 03/2022 Conclusions: - 1. Normal LV systolic function mild LVH? 2. Moderate left atrial enlargement? 3. Normal cardiac valvular Doppler ? 4. Mildly dilated ascending aorta at 3.9 cm? 5. No gross pericardial effusion ? ?? 3 Day Holter 03/2022 1. Patient was monitor for total period of 3 days 2. Baseline was atrial fibrillation with average heart of 86 beats per minute with adequate rate control 3. Total of 20,765 PVCs accounting for 5.5% of total beats account for frequent PVCs 4. No significant pauses or bradycardia ?5. No patient reported events? EKG 02/2022 atrial fibrillation with PVCs, right axis deviation, low-voltage QRS, can not rule out anterior infarct, septal Q, rate 88, QTC 406 millisecond NM cardiolite stress test 03/2022 Impression: ? 1.? Myocardial perfusion imaging study shows equivocal for possible apical and distal lateral wall ischemia 2.? Gated LVEF is 59% 3. Transient ischemic dilatation not present ? EKG is nondiagnostic for ischemia (?Once his heart rate is regular than will arrange for a CTA of the coronary arteries to evaluate for any obstructive coronary artery disease.) Assessment and Plan Assessment Anesthesia Assessment: Chart Reviewed Final Anesthetic Review Family History of Problems with Anesthesia: No History of Problems with Anesthesia: No Documented by User: Sony Bell MD 05/21/22 13:45 [facility] Past Medical History Medical History Asthma Atrial fibrillation Diabetes Elevated cholesterol HTN (hypertension) Sciatica Shoulder pain with history of repair of rotator cuff Sleep apnea Family History Family History Father Heart disease HTN (hypertension) Mother Atrial fibrillation Sister Diabetes Surgical History Surgical History History of carpal tunnel release Hx of elbow surgery Hx of eye surgery Hx of hernia repair Hx of knee surgery Hx of tonsillectomy Social History Social History Household Members: Spouse Alcohol intake: current Patient Tobacco Use Status: Never used Tobacco Use of substances other than those prescribed or required for medical reasons: Yes Substance Use Type: Marijuana Advance Directives: No Advance Directives Information Provided: Yes Current 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 status: retired Meds Allergies Allergy/AdvReac Type Severity Reaction Status Date / Time iron Allergy Severe Rash Verified 04/24/22 14:02 Home Medications Medication Instructions Recorded Confirmed Last Taken Type atorvastatin 40 mg tablet 40 mg PO BEDTIME 02/20/22 05/15/22 02/23/22 History cholecalciferol (vitamin D3) 25 25 mcg PO DAILY 02/20/22 05/15/22 02/24/22 05:30 History mcg (1,000 unit) capsule cyanocobalamin (vitamin B-12) 1,000 mcg PO DAILY 02/20/22 05/15/22 02/24/22 05:30 History 1,000 mcg tablet (Vitamin B-12) empagliflozin 25 mg tablet 25 mg PO DAILY 02/20/22 05/15/22 02/23/22 History (Jardiance) lisinopril 10 mg tablet 10 mg PO DAILY 02/20/22 05/15/22 02/24/22 05:30 History metformin 1,000 mg tablet 1,000 mg PO BIDWM 02/20/22 05/15/22 02/23/22 History metoprolol tartrate 50 mg tablet 50 mg PO BID 02/20/22 05/15/22 05/21/22 History montelukast 10 mg tablet 10 mg PO BEDTIME 02/20/22 05/15/22 02/23/22 History albuterol sulfate 90 mcg/actuation 1 - 2 inh inhalation Q4-6H PRN 02/24/22 05/15/22 Unknown History aerosol inhaler (Ventolin HFA) Shortness Of Breath fluticasone propionate 50 2 spray intranasal DAILY 02/24/22 05/15/22 02/24/22 History mcg/actuation nasal spray,suspension glipizide 5 mg tablet, extended 1 tab PO DAILY 02/24/22 05/15/22 02/23/22 History release 24 hr acetaminophen 500 mg tablet 1,000 mg PO Q6H PRN Pain 04/24/22 05/15/22 Unknown History apixaban 5 mg tablet (Eliquis) 5 mg PO BID 08/11/22 09/01/22 09/07/22 History Exam Airway Mallampati Class: III TM Dist: >3cm Neck ROM: Full Loose/Missing/Broken Teeth: No Heart: irrr Lungs: clear Assessment and Plan Final Anesthetic Review NPO: Yes ASA Class: IV Final Preanesthetic Review: No Changes in Pt Med Stat, Meds/Allgs Chart Reviewed, Consent Obtained/Reviewed and Anes Risks/Benef Reviewed Patient Risk: Intermediate Procedure Risk: Low Anesthetic Plan Anesthetic Plan: MAC: Disposition: Standard PACU
[2022-05-21] VITALS (8 sets, daily range): BP systolic 118–143; BP diastolic 61–99; PULSE 67–89; RESP 16–20; TEMP 35.8–36.3; O2SAT 96–98; BMI 45.7
[2022-05-21 13:41] LABS: Glucose, Whole Blood 123 mg/dL (60-115)
[2022-05-21] MEDS: Lactated Ringers 1,000 ML 50 ML IVCONT (13:54)
--- NOTE | 2022-05-21 14:18 | MHC.SHP ---
Pre-Procedural Eval Section A Date of Service: 05/21/22 The patient is an INPATIENT: No Section B Chief Complaint: a-fib Details of Present Illness: PAF. JOYNER. Here for cardioversion Allergies: Allergies Allergy/AdvReac Type Severity Reaction Status Date / Time iron Allergy Severe Rash Verified 04/24/22 14:02 Plan Diagnosis/Plan: Unchanged I have reviewed the history and physical and performed a pertinent physical examination on my patient. No changes have occurred unless specified.
--- NOTE | 2022-05-21 14:55 | ECG_ITS ---
Test Reason : S/P CARDIOVERSION Blood Pressure : / mmHG Vent. Rate : 072 BPM Atrial Rate : 000 BPM P-R Int : 000 ms QRS Dur : 100 ms QT Int : 364 ms P-R-T Axes : 000 110 002 degrees QTc Int : 398 ms Atrial fibrillation with premature ventricular or aberrantly conducted complexes Right axis deviation Low voltage QRS Septal infarct (cited on or before 24-FEB-2022) Abnormal ECG When compared with ECG of 24-FEB-2022 16:29, No significant change was found Referred By: Sp Akhtar Electronically Signed By:FILI TROY
--- NOTE | 2022-05-21 15:06 | HO.CARDIVERS ---
Cardioversion Procedure Note Cardioversion Date of Procedure: 05/21/2022 Ordering Provider: Sp Akhtar Performing Provider: Sp Akhtar Indication for Procedure: Atrial fibrillation Performed with Transesophageal Echo: No History: 66-year-old gentleman with dyspnea on exertion and atrial fibrillation. He is here for cardioversion. Consent: Verbal and Written consent was obtained from the patient before starting. The patient was made aware of the risk of stroke, aspiration and failure to achieve sinus rhythm Procedure: After consent obtained, defib pads were attached and the patient was sedated by the anesthesia team. Once adequate sedation achieved, patient was given 200 joules synchronized shock which converted him to sinus rhythm but he went back into atrial fibrillation. We tried a 2nd shock which was not successful. At this stage we loaded him with amiodarone 150 mg as a last resort and try to cardiovert him 2 more times but he kept going back into atrial fibrillation. He was left with Anesthesia for recovery. Complications: None Impression: Unsuccessful cardioversion. Recommendations: Loading with amiodarone 400 mg twice a day x2 week followed by 200 mg once a day. We will bring him back in 3 weeks to re-attempt cardioversion. Continue anticoagulation as before. Thank you for allowing me to participate in the care of your patient. Please feel free to contact me if you have any questions.
== END 2022-05-21 16:10 | disposition home or self-care (01) ==
PROVIDERS: PCP Internal Medicine; Visit Provider Internal Medicine Cardiovascular Disease
PROC: 5A2204Z Restoration of Cardiac Rhythm, Single (ICD-10-PCS; principal; 2022-05-21 14:00)
DX: I48.91 Unspecified atrial fibrillation (principal); R06.09 Other forms of dyspnea; I10 Essential (primary) hypertension; E11.9 Type 2 diabetes mellitus without complications; J45.909 Unspecified asthma, uncomplicated; G47.33 Obstructive sleep apnea (adult) (pediatric); Z79.01 Long term (current) use of anticoagulants; Z79.899 Other long term (current) drug therapy; Z79.84 Long term (current) use of oral hypoglycemic drugs; Z88.8 Allergy status to other drugs, medicaments and biological substances; E66.01 Morbid (severe) obesity due to excess calories; Z68.42 Body mass index [BMI] 45.0-49.9, adult
CPT/HCPCS: 82947; 92960; 93005; J0282

== ENCOUNTER 2022-06-24 12:54 | Day surgery (SDC) | payer MEDICARE, MEDICAID, SELFPAY ==
--- NOTE | 2022-06-20 10:57 | P.CONAN_ITS ---
Documented by User: Manisha Salazar NP 06/20/22 11:00 HPI - Anesthesia Eval Consult details Narrative: 66yo M for Cardioversion s/p cardioversion 05/21/22 with MAC PMFSH Active Problems Active Problems: All Active Problems (Updated 06/18/22 @ 15:21 by Anna Marie Herrera RN) Encounter for screening colonoscopy (Acute) Atrial fibrillation (Acute) Shortness of breath (Acute) Past Medical History Medical History (Updated 06/18/22 @ 15:21 by Anna Marie Herrera RN) Asthma Atrial fibrillation Diabetes Elevated cholesterol History of cardioversion HTN (hypertension) Sciatica Shoulder pain with history of repair of rotator cuff Sleep apnea Family History Family History Father Heart disease HTN (hypertension) Mother Atrial fibrillation Sister Diabetes Family history of problems with anesthesia: No Surgical History Surgical History History of carpal tunnel release Hx of elbow surgery Hx of eye surgery Hx of hernia repair Hx of knee surgery Hx of tonsillectomy History of Problems with Anesthesia: No Social History Social History Household Members: Spouse Alcohol intake: current Alcohol intake frequency: does not drink Patient Tobacco Use Status: Never used Tobacco Substance Use Type: Marijuana Current 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 status: retired [employer] Allergies Allergy/AdvReac Type Severity Reaction Status Date / Time iron Allergy Severe Rash Verified 04/24/22 14:02 Home Medications Medication Instructions Recorded Confirmed Last Taken Type atorvastatin 40 mg tablet 40 mg PO BEDTIME 02/20/22 06/18/22 02/23/22 History cholecalciferol (vitamin D3) 25 25 mcg PO DAILY 02/20/22 06/18/22 02/24/22 05:30 History mcg (1,000 unit) capsule cyanocobalamin (vitamin B-12) 1,000 mcg PO DAILY 02/20/22 06/18/22 02/24/22 05:30 History 1,000 mcg tablet (Vitamin B-12) empagliflozin 25 mg tablet 25 mg PO DAILY 02/20/22 06/18/22 02/23/22 History (Jardiance) lisinopril 10 mg tablet 10 mg PO DAILY 02/20/22 06/18/22 02/24/22 05:30 History metformin 1,000 mg tablet 1,000 mg PO BIDWM 02/20/22 06/18/22 02/23/22 History montelukast 10 mg tablet 10 mg PO BEDTIME 02/20/22 06/18/22 02/23/22 History albuterol sulfate 90 mcg/actuation 1 - 2 inh inhalation Q4-6H PRN 02/24/22 06/18/22 Unknown History aerosol inhaler (Ventolin HFA) Shortness Of Breath fluticasone propionate 50 2 spray intranasal DAILY 02/24/22 06/18/22 02/24/22 History mcg/actuation nasal spray,suspension glipizide 5 mg tablet, extended 1 tab PO DAILY 02/24/22 06/18/22 02/23/22 History release 24 hr acetaminophen 500 mg tablet 1,000 mg PO Q6H PRN Pain 04/24/22 06/18/22 Unknown History apixaban 5 mg tablet (Eliquis) 5 mg PO BID 04/24/22 06/18/22 05/21/22 History Exam Exam Date and Time: June 20, 2022 1057 Pertinent Lab Results Pertinent Lab Results: Laboratory Tests 02/24/22 02/24/22 16:01 16:03 WBC 6.3 Hgb 17.6 Hct 55.1 H Plt Count 143 L Sodium 136 Potassium 4.5 Chloride 104 Carbon Dioxide 23 BUN 14 Creatinine 0.95 Narrative Narrative: EKG 05/2022 (post cardioversion) Vent. Rate : 072 BPM ? ? Atrial Rate : 000 BPM ?? P-R Int : 000 ms? QRS Dur : 100 ms ? ? QT Int : 364 ms ? ? ? P-R-T Axes : 000 110 002 degrees ?? QTc Int : 398 ms ? Atrial fibrillation with premature ventricular or aberrantly conducted complexes Right axis deviation Low voltage QRS Septal infarct (cited on or before 24-FEB-2022) Abnormal ECG When compared with ECG of 24-FEB-2022 16:29, No significant change was found? 3 Day Holter 03/2022 1. Patient was monitor for total period of 3 days 2. Baseline was atrial fibrillation with average heart of 86 beats per minute with adequate rate control 3. Total of 20,765 PVCs accounting for 5.5% of total beats account for frequent PVCs 4. No significant pauses or bradycardia ?5. No patient reported events? ECHO 03/2022 Conclusions: - 1. Normal LV systolic function mild LVH? 2. Moderate left atrial enlargement? 3. Normal cardiac valvular Doppler ? 4. Mildly dilated ascending aorta at 3.9 cm? 5. No gross pericardial effusion? NM cardiolite stress test 03/2022 Impression: ? 1.? Myocardial perfusion imaging study shows equivocal for possible apical and distal lateral wall ischemia 2.? Gated LVEF is 59% 3. Transient ischemic dilatation not present ? EKG is nondiagnostic for ischemia (?Once his heart rate is regular than will arrange for a CTA of the coronary arteries to evaluate for any obstructive coronary artery disease.) Assessment and Plan Assessment Anesthesia Assessment: Chart Reviewed Final Anesthetic Review Family History of Problems with Anesthesia: No History of Problems with Anesthesia: No Documented by User: Gasper Hernandez MD 06/24/22 17:20 [facility] Past Medical History Medical History (Updated 06/18/22 @ 15:21 by Anna Marie Herrera RN) Asthma Atrial fibrillation Diabetes Elevated cholesterol History of cardioversion HTN (hypertension) Sciatica Shoulder pain with history of repair of rotator cuff Sleep apnea Functional capacity: independent ambulation Family History Family History Father Heart disease HTN (hypertension) Mother Atrial fibrillation Sister Diabetes Surgical History Surgical History History of carpal tunnel release Hx of elbow surgery Hx of eye surgery Hx of hernia repair Hx of knee surgery Hx of tonsillectomy Social History Social History Household Members: Spouse Alcohol intake: current Alcohol intake frequency: does not drink Patient Tobacco Use Status: Never used Tobacco Substance Use Type: Marijuana Current 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 status: retired Meds Allergies Allergy/AdvReac Type Severity Reaction Status Date / Time iron Allergy Severe Rash Verified 04/24/22 14:02 Home Medications Medication Instructions Recorded Confirmed Last Taken Type atorvastatin 40 mg tablet 40 mg PO BEDTIME 02/20/22 06/18/22 02/23/22 History cholecalciferol (vitamin D3) 25 25 mcg PO DAILY 02/20/22 06/18/22 02/24/22 05:30 History mcg (1,000 unit) capsule cyanocobalamin (vitamin B-12) 1,000 mcg PO DAILY 02/20/22 06/18/22 02/24/22 05:30 History 1,000 mcg tablet (Vitamin B-12) empagliflozin 25 mg tablet 25 mg PO DAILY 02/20/22 06/18/22 02/23/22 History (Jardiance) lisinopril 10 mg tablet 10 mg PO DAILY 02/20/22 06/18/22 02/24/22 05:30 History metformin 1,000 mg tablet 1,000 mg PO BIDWM 02/20/22 06/18/22 02/23/22 History montelukast 10 mg tablet 10 mg PO BEDTIME 02/20/22 06/18/22 02/23/22 History albuterol sulfate 90 mcg/actuation 1 - 2 inh inhalation Q4-6H PRN 02/24/22 06/18/22 Unknown History aerosol inhaler (Ventolin HFA) Shortness Of Breath fluticasone propionate 50 2 spray intranasal DAILY 02/24/22 06/18/22 02/24/22 History mcg/actuation nasal spray,suspension glipizide 5 mg tablet, extended 1 tab PO DAILY 02/24/22 06/18/22 02/23/22 History release 24 hr acetaminophen 500 mg tablet 1,000 mg PO Q6H PRN Pain 04/24/22 06/18/22 Unknown History apixaban 5 mg tablet (Eliquis) 5 mg PO BID 04/24/22 06/18/22 05/21/22 History Exam Airway Mallampati Class: IV TM Dist: >3cm Neck ROM: Full Loose/Missing/Broken Teeth: Yes (Poor dentition . Caps, fillings ) Heart: S1,S2 Lungs: b/l breath sounds Assessment and Plan Assessment Anesthesia Assessment: Anesthesia Plan Discussed Final Anesthetic Review NPO: Yes ASA Class: III Final Preanesthetic Review: Meds/Allgs Chart Reviewed, Consent Obtained/Reviewed and Anes Risks/Benef Reviewed Patient Risk: Intermediate Procedure Risk: Intermediate Anesthetic Plan Anesthetic Plan: MAC: Disposition: Standard PACU
--- NOTE | 2022-06-24 | ECG_ITS ---
Test Reason : s/p cardioversion Blood Pressure : / mmHG Vent. Rate : 077 BPM Atrial Rate : 077 BPM P-R Int : 226 ms QRS Dur : 104 ms QT Int : 394 ms P-R-T Axes : 011 111 026 degrees QTc Int : 445 ms Sinus rhythm with 1st degree A-V block Right axis deviation RSR' or QR pattern in V1 suggests right ventricular conduction delay Intra-ventricular conduction delay Low voltage QRS Abnormal ECG When compared with ECG of 21-MAY-2022 14:57, Sinus rhythm has replaced Atrial fibrillation Referred By: Sp Akhtar Electronically Signed By:JEIMY BECK MD
[2022-06-24 13:32] VITALS: BP 150/98; PULSE 78; RESP 18; TEMP 36.2; O2SAT 99; BMI 44.6
[2022-06-24] MEDS: Lactated Ringers 1,000 ML 50 ML IVCONT (13:54)
[2022-06-24 13:55] LABS: Glucose, Whole Blood 121 mg/dL (60-115)
--- NOTE | 2022-06-24 14:12 | MHC.SHP ---
Pre-Procedural Eval Section A Date of Service: 06/24/22 The patient is an INPATIENT: No Section B Chief Complaint: afib Details of Present Illness: Here for cardioversion Relevant Social History: None Present Medications: see Short Stay Collaborative assessment Medical History: Significant History (PAF. obesity, HTN) Allergies: Allergies Allergy/AdvReac Type Severity Reaction Status Date / Time iron Allergy Severe Rash Verified 04/24/22 14:02 Review of Systems Sugical H&P ROS: Negative: Cardiovascular and Respiratory and Yes, Specify: Constitution (Fatigue) Exam Exam Comment: S1+S2. Irregular heart and rhythm. CTABL. Plan Diagnosis/Plan: Unchanged I have reviewed the history and physical and performed a pertinent physical examination on my patient. No changes have occurred unless specified.
--- NOTE | 2022-06-24 14:58 | HO.CARDIVERS ---
Cardioversion Procedure Note Cardioversion Date of Procedure: 06/24/2022 Ordering Provider: Sp Akhtar Performing Provider: Sp Akhtar Indication for Procedure: PAF Performed with Transesophageal Echo: No History: 67 male with PAF and progressive fatigue. Here for cardioversion. Consent: Verbal and Written consent was obtained from the patient before starting. The patient was made aware of the risk of stroke and failure. Procedure: After consent obtained, defib pads were attached and the patient was sedated by the anesthesia team. Once adequate sedation achieved, the patient was given 1 synchronized shock of 200 J but it was unsuccessful. We repositioned the pads and gave a 2nd 200 J synchronized shock which was successful. The patient was left with anesthesia for recovery. Complications: None Impression: Successful DC cardioversion Recommendations: Continue same medications. Eliquis must not be stopped in next 6 weeks.
[2022-06-24 15:02] VITALS: BP 125/92; PULSE 76; RESP 10; TEMP 36.9; O2SAT 97
[2022-06-24 15:07] VITALS: BP 127/78; PULSE 67; RESP 15; O2SAT 97
[2022-06-24 15:12] VITALS: BP 130/82; PULSE 71; RESP 19; O2SAT 97
[2022-06-24 15:17] VITALS: BP 130/82; PULSE 73; RESP 15; O2SAT 96
[2022-06-24 15:28] VITALS: TEMP 37
== END 2022-06-24 15:44 | disposition home or self-care (01) ==
PROVIDERS: PCP Internal Medicine; Visit Provider Internal Medicine Cardiovascular Disease
PROC: 5A2204Z Restoration of Cardiac Rhythm, Single (ICD-10-PCS; principal; 2022-06-24 14:00)
DX: I48.91 Unspecified atrial fibrillation (principal); R53.83 Other fatigue; I10 Essential (primary) hypertension; E11.9 Type 2 diabetes mellitus without complications; G47.33 Obstructive sleep apnea (adult) (pediatric); Z99.89 Dependence on other enabling machines and devices; Z79.51 Long term (current) use of inhaled steroids; Z79.01 Long term (current) use of anticoagulants; Z79.84 Long term (current) use of oral hypoglycemic drugs; Z88.8 Allergy status to other drugs, medicaments and biological substances
CPT/HCPCS: 82947; 92960; 93005; J0330; J2370

== ENCOUNTER → 2022-07-02 14:20 | Outpatient (BNVA) | payer MEDICARE, MEDICAID, SELFPAY | PROVIDERS: PCP Internal Medicine; Referring Provider Internal Medicine; Visit Provider Internal Medicine Cardiovascular Disease | DX: R94.39 Abnormal result of other cardiovascular function study (principal); I48.91 Unspecified atrial fibrillation | CPT/HCPCS: 93005; 99212 ==

== ENCOUNTER → 2022-09-17 14:23 | Outpatient (BNVA) | payer MEDICARE, MEDICAID, SELFPAY | PROVIDERS: PCP Internal Medicine; Referring Provider Internal Medicine; Visit Provider Internal Medicine Cardiovascular Disease | DX: I48.91 Unspecified atrial fibrillation (principal); R94.39 Abnormal result of other cardiovascular function study; Z79.899 Other long term (current) drug therapy | CPT/HCPCS: 93005; 99212 ==

== ENCOUNTER 2022-10-01 12:17 | Outpatient (REF) | payer MEDICARE, MEDICAID, SELFPAY ==
--- NOTE | ~2022-10-01 | XR_ITS ---
EXAMINATION: XR foot RT 2V CLINICAL INFORMATION: Foot pain COMPARISON: None TECHNIQUE: 3 views of the foot FINDINGS: No fracture or dislocation. Moderate degenerative change of the first metatarsophalangeal joint with loss of joint space and degenerative spurring. Achilles tendon enthesopathy. Nonspecific calcification in the anterior to the tibiotalar joint may reflect a loose body or sequelae of degenerative change. No joint effusion. Atherosclerotic vascular calcification. XR/XR foot RT 2V IMPRESSION: Moderate degenerative changes of the foot predominantly involving the first metatarsophalangeal joint. Nonspecific calcification in the anterior to the tibiotalar joint may reflect a loose body or sequelae of degenerative change.
== END 2022-10-01 12:18 | disposition home or self-care (01) ==
LOC: HO.HMGCX 12:17
PROVIDERS: PCP Internal Medicine; Visit Provider Internal Medicine
DX: M79.671 Pain in right foot (principal)
CPT/HCPCS: 73620

== ENCOUNTER → 2022-10-08 09:34 | Outpatient (BNVA) | payer MEDICARE, MEDICAID, SELFPAY | PROVIDERS: PCP Internal Medicine; Referring Provider Internal Medicine; Visit Provider Internal Medicine Cardiovascular Disease | DX: I25.10 Atherosclerotic heart disease of native coronary artery without angina pectoris (principal); I44.0 Atrioventricular block, first degree; I48.0 Paroxysmal atrial fibrillation; I10 Essential (primary) hypertension; E11.9 Type 2 diabetes mellitus without complications; E78.00 Pure hypercholesterolemia, unspecified; E66.9 Obesity, unspecified; Z68.42 Body mass index [BMI] 45.0-49.9, adult; Z98.890 Other specified postprocedural states | CPT/HCPCS: 93005; 99212 ==

== ENCOUNTER → 2023-02-11 09:45 | Outpatient (BNVA) | payer MEDICARE, MEDICAID, SELFPAY | PROVIDERS: PCP Internal Medicine; Referring Provider Internal Medicine; Visit Provider Internal Medicine Cardiovascular Disease | DX: I25.10 Atherosclerotic heart disease of native coronary artery without angina pectoris (principal); I48.0 Paroxysmal atrial fibrillation; Z79.899 Other long term (current) drug therapy | CPT/HCPCS: 93005; 99212 ==

== ENCOUNTER 2023-04-10 13:54 | Day surgery (SDC) | payer MEDICARE, MEDICAID, SELFPAY ==
--- NOTE | 2023-04-09 10:39 | HO.ANESPROP2 ---
Documented by User: Manisha Salazar NP 04/09/23 10:40 HPI - Anesthesia Eval Consult details Narrative: 67yo M for Colonoscopy Cardiac optimized Eliquis for afib PMFSH Active Problems Active Problems: All Active Problems (Updated 10/08/22 @ 10:14 by Sp Akhtar MD) Coronary artery disease (Acute) Abnormal stress test (Acute) Equivocal stress test (Acute) Encounter for screening colonoscopy (Acute) Atrial fibrillation (Acute) Shortness of breath (Acute) Past Medical History Medical History Arthritis Asthma Atrial fibrillation Diabetes Elevated cholesterol History of cardioversion HTN (hypertension) Sciatica Shoulder pain with history of repair of rotator cuff Sleep apnea Family History Family History Father Heart disease HTN (hypertension) Mother Atrial fibrillation Sister Diabetes Family history of problems with anesthesia: No Surgical History Surgical History History of cardiac cath History of carpal tunnel release History of surgical removal of ganglion cyst Hx of elbow surgery Hx of eye surgery Hx of hernia repair Hx of knee surgery Hx of rotator cuff surgery Hx of tonsillectomy History of Problems with Anesthesia: No Social History Social History Household Members: Spouse Alcohol intake: current Alcohol intake frequency: does not drink Patient Tobacco Use Status: Never used Tobacco Use of substances other than those prescribed or required for medical reasons: Yes Substance Use Type: Marijuana Substance Use Type Other:: edibles Are you DNR?: No Advance Directives: No Advance Directives Information Provided: Yes Current 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 status: retired Meds Allergies Allergy/AdvReac Type Severity Reaction Status Date / Time iron Allergy Severe Rash Verified 04/10/23 14:08 Home Medications Medication Instructions Recorded Confirmed Last Taken Type atorvastatin 40 mg tablet 40 mg PO BEDTIME 02/20/22 02/26/23 02/23/22 History cholecalciferol (vitamin D3) 25 25 mcg PO DAILY 02/20/22 02/26/23 04/10/23 08:00 History mcg (1,000 unit) capsule cyanocobalamin (vitamin B-12) 1,000 mcg PO DAILY 02/20/22 02/26/23 04/10/23 08:00 History 1,000 mcg tablet (Vitamin B-12) empagliflozin 25 mg tablet 25 mg PO DAILY 02/20/22 02/26/23 02/23/22 History (Jardiance) lisinopril 10 mg tablet 10 mg PO DAILY 02/20/22 02/26/23 04/10/23 08:00 History metformin 1,000 mg tablet 1,000 mg PO BIDWM 02/20/22 02/26/23 02/23/22 History montelukast 10 mg tablet 10 mg PO BEDTIME 02/20/22 02/26/23 02/23/22 History albuterol sulfate 90 mcg/actuation 1 - 2 inh inhalation Q4-6H PRN 02/24/22 02/26/23 Unknown History aerosol inhaler (Ventolin HFA) Shortness Of Breath acetaminophen 500 mg tablet 1,000 mg PO Q6H PRN Pain 04/24/22 02/26/23 Unknown History apixaban 5 mg tablet (Eliquis) 5 mg PO BID 04/24/22 02/26/23 04/07/23 History cetirizine 10 mg tablet 10 mg PO QAM 07/02/22 02/26/23 Unknown History glipizide 5 mg tablet, extended 5 mg PO DAILY 09/17/22 02/26/23 Unknown History release 24 hr metoprolol tartrate 25 mg tablet 12.5 mg PO BID 04/10/23 04/10/23 Unknown History Exam Exam Date and Time: April 09, 2023 1039 Narrative Narrative: EKG 01/2023 Sinus rhythm 71 beats per minute, rightward axis, poor R-wave progression, QTC 410 milliseconds. Assessment and Plan Assessment Anesthesia Assessment: Chart Reviewed Final Anesthetic Review Family History of Problems with Anesthesia: No History of Problems with Anesthesia: No Documented by User: Rama Mendez MD 04/10/23 14:56 PMFSH Past Medical History Medical History Arthritis Asthma Atrial fibrillation Diabetes Elevated cholesterol History of cardioversion HTN (hypertension) Sciatica Shoulder pain with history of repair of rotator cuff Sleep apnea Family History Family History Father Heart disease HTN (hypertension) Mother Atrial fibrillation Sister Diabetes Surgical History Surgical History History of cardiac cath History of carpal tunnel release History of surgical removal of ganglion cyst Hx of elbow surgery Hx of eye surgery Hx of hernia repair Hx of knee surgery Hx of rotator cuff surgery Hx of tonsillectomy Social History Social History Household Members: Spouse Alcohol intake: current Alcohol intake frequency: does not drink Patient Tobacco Use Status: Never used Tobacco Use of substances other than those prescribed or required for medical reasons: Yes Substance Use Type: Marijuana Substance Use Type Other:: edibles Are you DNR?: No Advance Directives: No Advance Directives Information Provided: Yes Current 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 status: retired Meds Allergies Allergy/AdvReac Type Severity Reaction Status Date / Time iron Allergy Severe Rash Verified 04/10/23 14:08 Home Medications Medication Instructions Recorded Confirmed Last Taken Type atorvastatin 40 mg tablet 40 mg PO BEDTIME 02/20/22 02/26/23 02/23/22 History cholecalciferol (vitamin D3) 25 25 mcg PO DAILY 02/20/22 02/26/23 04/10/23 08:00 History mcg (1,000 unit) capsule cyanocobalamin (vitamin B-12) 1,000 mcg PO DAILY 02/20/22 02/26/23 04/10/23 08:00 History 1,000 mcg tablet (Vitamin B-12) empagliflozin 25 mg tablet 25 mg PO DAILY 02/20/22 02/26/23 02/23/22 History (Jardiance) lisinopril 10 mg tablet 10 mg PO DAILY 02/20/22 02/26/23 04/10/23 08:00 History metformin 1,000 mg tablet 1,000 mg PO BIDWM 02/20/22 02/26/23 02/23/22 History montelukast 10 mg tablet 10 mg PO BEDTIME 02/20/22 02/26/23 02/23/22 History albuterol sulfate 90 mcg/actuation 1 - 2 inh inhalation Q4-6H PRN 02/24/22 02/26/23 Unknown History aerosol inhaler (Ventolin HFA) Shortness Of Breath acetaminophen 500 mg tablet 1,000 mg PO Q6H PRN Pain 04/24/22 02/26/23 Unknown History apixaban 5 mg tablet (Eliquis) 5 mg PO BID 04/24/22 02/26/23 04/07/23 History cetirizine 10 mg tablet 10 mg PO QAM 07/02/22 02/26/23 Unknown History glipizide 5 mg tablet, extended 5 mg PO DAILY 09/17/22 02/26/23 Unknown History release 24 hr metoprolol tartrate 25 mg tablet 12.5 mg PO BID 04/10/23 04/10/23 Unknown History Exam Airway Mallampati Class: III TM Dist: >3cm Neck ROM: Full Loose/Missing/Broken Teeth: No Heart: RRR Lungs: CTA Assessment and Plan Assessment Anesthesia Assessment: Anesthesia Plan Discussed Final Anesthetic Review NPO: Yes ASA Class: III Final Preanesthetic Review: Consent Obtained/Reviewed and Anes Risks/Benef Reviewed Patient Risk: Intermediate Procedure Risk: Low Anesthetic Plan Anesthetic Plan: MAC: Disposition: Standard PACU
[2023-04-10 14:10] VITALS: BMI 47.0
[2023-04-10 14:17] VITALS: BP 135/83; PULSE 69; RESP 18; TEMP 35.7; O2SAT 97
--- NOTE | 2023-04-10 14:23 | MHC.SHP ---
Pre-Procedural Eval Section A Date of Service: 04/10/23 The patient is an INPATIENT: No The History & Physical has been completed within 30 days and I have reviewed it.: No Section B Chief Complaint: Encounter for screening for malignant neoplasm of Details of Present Illness: Colon cancer screening Relevant Family History (Specify if Yes): No Relevant Social History: None Present Medications: see Short Stay Collaborative assessment Medical History: Significant History (CAD, AF, hypertension, asthma, DM, ) History of Previous Operations: Relevant previous surgery/procedure and date(s) (Hx of eye surgery Hx of hernia repair Hx of knee surgery Hx of tonsillectomy) Allergies: Allergies Allergy/AdvReac Type Severity Reaction Status Date / Time iron Allergy Severe Rash Verified 04/10/23 14:08 Review of Systems Sugical H&P ROS: Negative: Constitution, Cardiovascular, Respiratory and Gastrointestinal Exam Surgical H&P Exam: Normal: Heart, Normal: Lungs, Normal: Extremities and Normal: Abdomen Plan Diagnosis/Plan: Unchanged I have reviewed the history and physical and performed a pertinent physical examination on my patient. No changes have occurred unless specified. Time Spent With Patient Time: Total time managing care of this patient today ____ minutes.
[2023-04-10 14:36] LABS: Glucose, Whole Blood 130 mg/dL (60-115)
[2023-04-10] MEDS: Lactated Ringers 1,000 ML 50 ML IVCONT (14:36)
--- NOTE | 2023-04-10 15:10 | W.PM.OPN ---
Operative Note Operative Note Date of Service: 04/10/23 Narrative: COLONOSCOPY TILL CECUM Pre-op diagnosis: Colon cancer screening Post-op diagnosis:?Hemorrhoids Endoscopist:? Eddy Gomez MD Anesthesia:?MAC Consent: Indications for the procedure and potential complications of bleeding, perforation, reaction to medications and missed diagnosis were discussed with the patient and informed consent was obtained. Instrument: Olympus PCF H 190 L variable stiffness pediatric colonoscope Monitoring: Vital signs and clinical assessment, intermittent blood pressure monitoring, continuous EKG monitoring, Pulse oximetry and Carbon Dioxide monitoring were done throughout the procedure. Please see anesthesia flowsheet. Colon withdrawl time was 12 minutes. Procedure: The patient was placed in the left lateral decubitis position and pre-procedure medications were administered. After a digital rectal examination of the ano-rectum, the video colonoscope was inserted into the rectum and advanced through the colon to the cecum. The colonoscope was slowly withdrawn in a retrograde panoramic fashion and the colon mucosa was carefully examined including a retroflexed view of the rectum. Findings and interventions are described below. Procedure Difficulty: Colon was long and there was some loop formation. Patient was placed in the supine position with application of left lower quadrant pressure to intubate the cecum. Findings: Terminal Ileum: Not evaluated Cecum: Normal Ascending Colon: Normal Transverse Colon: Normal Descending Colon: Normal Sigmoid Colon: Normal Rectum: Normal Ano-rectum: Moderate internal hemorrhoids Colon preparation: Good after some irrigation Impression and Post Procedure Diagnosis: Colonoscopy Findings: No polyps were detected Moderate hemorrhoids on retroflexed exam. Plan: Patient has an appointment on 04/29/23 in the GI Clinic with EZ Chang . Repeat Colonoscopy in 10 years if patient remains in stable health (adult colonoscope for future colonoscopies) Above findings were reviewed with the patient and Hemorrhoids handout was given in the discharge area
[2023-04-10 15:50] VITALS: BP 133/71; PULSE 66; RESP 16; TEMP 36.4; O2SAT 96
[2023-04-10 16:05] VITALS: BP 129/69; PULSE 62; RESP 16; TEMP 36.8; O2SAT 95
== END 2023-04-10 16:20 | disposition home or self-care (01) ==
PROVIDERS: PCP Internal Medicine; Visit Provider Internal Medicine Gastroenterology
PROC: 0DJD8ZZ Inspection of Lower Intestinal Tract, Via Natural or Artificial Opening Endoscopic (ICD-10-PCS; CPT 45378; principal; 2023-04-10 15:30)
DX: Z12.11 Encounter for screening for malignant neoplasm of colon (principal); K64.8 Other hemorrhoids; G47.33 Obstructive sleep apnea (adult) (pediatric); J45.909 Unspecified asthma, uncomplicated; R06.09 Other forms of dyspnea; I10 Essential (primary) hypertension; E11.9 Type 2 diabetes mellitus without complications; I25.10 Atherosclerotic heart disease of native coronary artery without angina pectoris; I48.0 Paroxysmal atrial fibrillation; E78.00 Pure hypercholesterolemia, unspecified; Z79.01 Long term (current) use of anticoagulants; Z79.84 Long term (current) use of oral hypoglycemic drugs; Z79.899 Other long term (current) drug therapy; Z91.048 Other nonmedicinal substance allergy status; F12.90 Cannabis use, unspecified, uncomplicated
CPT/HCPCS: G0121; 82947

== ENCOUNTER → 2023-04-10 13:54 | Outpatient (BNV) | payer MEDICARE, MEDICAID, SELFPAY | PROVIDERS: PCP Internal Medicine; Visit Provider Internal Medicine Gastroenterology | DX: Z12.11 Encounter for screening for malignant neoplasm of colon (principal); K64.8 Other hemorrhoids | CPT/HCPCS: G0121 ==

== ENCOUNTER 2023-04-29 09:06 | Outpatient (AMB) | payer MEDICARE, MEDICAID, SELFPAY ==
--- NOTE | 2023-04-29 09:20 | A.OFFVIS_ITS ---
Intake Vital Signs 04/29/23 09:22 Height 5 ft 7 in Weight 301 lb BMI 47.1 BP 132/69 Blood Pressure Location Lt brachial Position Sitting Pulse 84 Intake Visit Reasons: S/p colon-Jason Intake Note: Patient follow p for Colonoscopy screening. Patient cc: loose stool and some occasional GERD. Acid Concentrator Required: No Accompanied by: Self / Same As Patient Allergies iron Allergy (Severe, Verified 04/29/23 09:19) Rash Medication List - Last Reconciled 04/29/23 by Suzan Rg PA-C acetaminophen 1,000 mg PO Q6H PRN albuterol sulfate 90 mcg/actuation (Ventolin HFA) 1 - 2 inhalations inhalation Q4-6H PRN apixaban (Eliquis) 5 mg PO BID atorvastatin 40 mg PO BEDTIME cetirizine 10 mg PO QAM cholecalciferol (vitamin D3) 25 mcg PO DAILY cyanocobalamin (vitamin B-12) (Vitamin B-12) 1,000 mcg PO DAILY empagliflozin (Jardiance) 25 mg PO DAILY glipizide ER 5 mg PO DAILY lisinopril 10 mg PO DAILY metformin 1,000 mg PO BIDWM metoprolol tartrate 12.5 mg PO BID montelukast 10 mg PO BEDTIME HPI HPI Comments History of Present Illness Details A 67 y/o a f/u after recent colonoscopy-that had been postponed due AFIB- he has finally been able to get it done- He has intermittent loose stool-metformin He is taking eliquis with good response- Good appetite- He does drink vodka- most days- [facility] Medical History (Updated 04/29/23 @ 09:52 by Suzan Rg PA-C) Arthritis Asthma Atrial fibrillation Diabetes Elevated cholesterol History of cardioversion HTN (hypertension) Sciatica Shoulder pain with history of repair of rotator cuff Sleep apnea Surgical History H/O colonoscopy History of cardiac cath History of carpal tunnel release History of surgical removal of ganglion cyst Hx of elbow surgery Hx of eye surgery Hx of hernia repair Hx of knee surgery Hx of rotator cuff surgery Hx of tonsillectomy Family History Father Heart disease HTN (hypertension) Mother Atrial fibrillation Sister Diabetes Social History Household Members: Spouse Alcohol intake: current Alcohol intake frequency: does not drink Patient Tobacco Use Status: Never used Tobacco Substance Use Type: Marijuana Current 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 status: retired Review of Systems Const All systems reviewed & are unremarkable except as noted in HPI and below Card Denies chest pain and Denies dyspnea Resp Denies dyspnea Physical Exam Vital Signs: Last Vital Signs Pulse 84 04/29/23 09:22 BP 132/69 04/29/23 09:22 BMI result Body Mass Index 47.1 Const General: cooperative and comfortable Orientation/consciousness: patient oriented x3 Limitations: no limitations Neuro General: patient oriented x3 Psych Appearance: grossly normal and well kempt Mental Status: mental status grossly normal Speech and movement: Normal speech and movement present and Clear speech present Affect: normal affect Attitude: cooperative Thought process: Normal thought process present Thought content: Normal thought content present Insight: Good insight present (Psych) Judgement: Good judgement present (Psych) Results Reviewed Results Reviewed: Colonoscopy Findings: No polyps were detected Moderate hemorrhoids on retroflexed exam. Plan: Patient has an appointment on 04/29/23 in the GI Clinic with EZ Chang . Repeat Colonoscopy in 10 years if patient remains in stable health (adult colonoscope for future colonoscopies) Above findings were reviewed with the patient and Hemorrhoids handout was given in the discharge area Assessment & Plan Assessment & Plan (1) Hemorrhoids: Comment: declines surgical consult Uses wipes- Code(s): K64.9 - Unspecified hemorrhoids Plan: HFD Plan Repeat asymptomatic colonoscopy- 10 years Maintain HFD Avoid straining Medications: Discontinued metoprolol tartrate 25 mg PO BID 90 tabs 3RF Patient Instructions: Repeat asymptomatic colonoscopy- 10 years Maintain HFD Avoid straining Call with concerns Decline surgical consult Coding Level of Care Code Est Pt Level 3 (25335) Diagnoses Hemorrhoids K64.9 Time Spent (min) 30
[2023-04-29 09:22] VITALS: BP 132/69; PULSE 84; BMI 47.1
== END 2023-04-29 10:40 | disposition home or self-care (01) ==
PROVIDERS: PCP Internal Medicine; Visit Provider Physician Assistant
DX: K64.9 Unspecified hemorrhoids (principal)
CPT/HCPCS: 99213

== ENCOUNTER → 2023-04-29 09:06 | Outpatient (BNVA) | payer MEDICARE, MEDICAID, SELFPAY | PROVIDERS: PCP Internal Medicine; Visit Provider Physician Assistant | DX: K64.9 Unspecified hemorrhoids (principal) | CPT/HCPCS: 99212 ==

== ENCOUNTER 2023-06-08 14:49 | Outpatient (AMB) | payer MEDICARE, SELFPAY ==
[2023-06-08 14:52] VITALS: BP 130/70; PULSE 70; BMI 47.2
--- NOTE | 2023-06-08 14:52 | A.OFFVIS_ITS ---
Intake Vital Signs 06/08/23 14:52 Height 5 ft 7 in Weight 301 lb 2.423 oz BMI 47.2 BP 130/70 Blood Pressure Location Lt brachial Position Sitting Pulse 70 Intake Visit Reasons: 4 month follow-up Intake Note: 4 month follow up Liability Claims Manager Required: No Accompanied by: Self / Same As Patient Allergies iron Allergy (Severe, Verified 06/08/23 14:53) Rash Medication List - Last Reconciled 06/08/23 by Sp Akhtar MD acetaminophen 1,000 mg PO Q6H PRN albuterol sulfate 90 mcg/actuation (Ventolin HFA) 1 - 2 inhalations inhalation Q4-6H PRN apixaban (Eliquis) 5 mg PO BID atorvastatin 40 mg PO BEDTIME cetirizine 10 mg PO QAM cholecalciferol (vitamin D3) 25 mcg PO DAILY cyanocobalamin (vitamin B-12) (Vitamin B-12) 1,000 mcg PO DAILY empagliflozin (Jardiance) 25 mg PO DAILY glipizide ER 5 mg PO DAILY lisinopril 10 mg PO DAILY metformin 1,000 mg PO BIDWM metoprolol tartrate 25 mg PO BID montelukast 10 mg PO BEDTIME HPI HPI Comments History of Present Illness Details 67-year-old gentleman here for follow-up . He has background history of obesity, paroxysmal atrial fibrillation and dyspnea on exertion. He underwent stress testing which showed equivocal changes of apical ischemia. He was complaining of dyspnea on exertion and we decided to do cardioversion 1st. He underwent cardioversion which was unsuccessful. He was loaded with amiodarone and we re-attempted the cardioversion which was successful. He is currently on 200 mg of amiodarone. He continues to be in sinus rhythm. He is saying since cardioversion he feels more energetic and has less dyspnea. Definitely has improved after cardioversion. He has strong family history of coronary disease and his father had [place] at age 50. His nuclear perfusion imaging showed apical ischemia. He was sent for coronary CTA after discussion which showed mid LAD 50% lesion. On follow-up he was complaining of chest discomfort. After discussion was taken for diagnostic angiography which showed 30-40% mid LAD stenosis. He was referred to electrophysiology at [facility]. His amiodarone was stopping was started on flecainide. Subsequent to that he had bradycardia and his heart rate was in 50s and he was symptomatic. He called electrophysiology office and was advised to stop the flecainide. He has been taking metoprolol 25 mg twice a day. He has been keeping a log of his blood pressure and heart rates and has been stable. Denying any significant symptoms on follow-up other than fatigue. He has been drinking alcohol and mostly drinks because of significant arthritis involving his back and knees. 06/08/23: He has been doing fine on f/u. Denying any significant palpitations or dyspnea. He has some nonanginal chest discomfort. He is taking meds regularly. [facility] Medical History (Updated 04/29/23 @ 09:52 by Suzan Rg PA-C) Arthritis History of cardioversion Atrial fibrillation Asthma HTN (hypertension) Elevated cholesterol Diabetes Sciatica Sleep apnea Shoulder pain with history of repair of rotator cuff Surgical History H/O colonoscopy History of surgical removal of ganglion cyst Hx of rotator cuff surgery History of cardiac cath Hx of elbow surgery History of carpal tunnel release Hx of eye surgery Hx of tonsillectomy Hx of hernia repair Hx of knee surgery Family History Father Heart disease HTN (hypertension) Mother Atrial fibrillation Sister Diabetes Social History Household Members: Spouse Alcohol intake: current Alcohol intake frequency: does not drink Patient Tobacco Use Status: Never used Tobacco Substance Use Type: Marijuana Current 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 status: retired Review of Systems Const Denies weakness ENT Denies dizziness Card Denies chest pain, Denies chest pain with activity, Denies syncope, Denies rapid heart rate, Denies pedal edema, Denies edema, Denies leg edema, Denies lightheadedness, Denies palpitations, Denies dyspnea, Denies dyspnea on exertion and Denies orthopnea Resp Denies cough, Denies dyspnea and Denies dyspnea on exertion GI Denies hematochezia and Denies change in stool character Musc Denies abnormal gait, Denies muscle cramps, Denies muscle weakness, Denies numbness, Denies radiating pain into limb and Denies tingling Neuro Denies abnormal gait, Denies dizziness, Denies syncope, Denies numbness, Denies tingling and Denies weakness Endo Denies palpitations Physical Exam Vital Signs: Last Vital Signs Pulse 70 06/08/23 14:52 BP 130/70 06/08/23 14:52 BMI result Body Mass Index 47.2 GENERAL APPEARANCE: in no acute distress, pleasant. NECK: no carotid bruit, no jugular venous distention. SKIN: no suspicious lesions, warm and dry. HEART: no murmurs, regular rate and rhythm. LUNGS: clear to auscultation bilaterally. ABDOMEN: soft, nontender. EXTREMITIES: no edema. PERIPHERAL PULSES: equal. NEUROLOGIC: No gross deficits, AAO X 3 Assessment & Plan Assessment & Plan (1) Atrial fibrillation: Code(s): I48.91 - Unspecified atrial fibrillation (2) Shortness of breath: Code(s): R06.02 - Shortness of breath Plan 67 male here for f/u. Denying any palpitations. Could not tolerate flecainide. On BB and apixaban. We discussed once again importance of weight loss. f/u in few months. Coding Level of Care Code Est Pt Level 3 (30248) Diagnoses Atrial fibrillation I48.91 Shortness of breath R06.02
== END 2023-06-08 15:20 | disposition home or self-care (01) ==
PROVIDERS: PCP Internal Medicine; Visit Provider Internal Medicine Cardiovascular Disease
DX: I48.91 Unspecified atrial fibrillation (principal); R06.02 Shortness of breath
CPT/HCPCS: 99213

== ENCOUNTER → 2023-06-08 14:49 | Outpatient (BNVA) | payer MEDICARE, SELFPAY | PROVIDERS: PCP Internal Medicine; Visit Provider Internal Medicine Cardiovascular Disease | DX: I48.91 Unspecified atrial fibrillation (principal); R06.02 Shortness of breath | CPT/HCPCS: 99212 ==

== ENCOUNTER 2023-10-13 09:09 | Outpatient (AMB) | payer MEDICARE, SELFPAY ==
[2023-10-13 09:14] VITALS: BP 134/82; PULSE 66; BMI 47.1
--- NOTE | 2023-10-13 09:14 | A.OFFVIS_ITS ---
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 Allergies iron Allergy (Severe, Verified 10/13/23 09:17) Rash Medication List - Last Reconciled 10/13/23 by SARA LoweryC acetaminophen 1,000 mg PO Q6H PRN albuterol sulfate 90 mcg/actuation (Ventolin HFA) 1 - 2 inhalations inhalation Q4-6H PRN apixaban (Eliquis) 5 mg PO BID atorvastatin 40 mg PO BEDTIME cetirizine 10 mg PO QAM cholecalciferol (vitamin D3) 25 mcg PO DAILY cyanocobalamin (vitamin B-12) (Vitamin B-12) 1,000 mcg PO DAILY empagliflozin (Jardiance) 25 mg PO DAILY glipizide ER 5 mg PO DAILY lisinopril 10 mg PO DAILY metformin 1,000 mg PO BIDWM metoprolol tartrate 25 mg PO BID montelukast 10 mg PO BEDTIME HPI 4 mth f/up HPI Details Olive is a 68-year-old male with past medical history of morbid obesity, hyperlipidemia, nonobstructive coronary artery disease, paroxysmal atrial fibrillation who now presents for follow-up. Today he reports he has been doing well since his last visit in May. He has not had any heart palpitations or concerns that he has recurrent AFib. He does have a cardio mobile device at home. He randomly used it recently and it said possible atrial fibrillation. Strips reviewed by me and it is unclear due to artifact. He says when he has had AFib in the past he can not feel the dif ference. He has chronic shortness of breath with exertion which he relates to his weight. No PND, orthopnea, he does have sock markings on exam today. No lightheadedness, presyncope, syncope, falls. No bleeding issues reported. He feels that he is active but does no routine exercise. Taking all meds as directed. [facility] Medical History (Updated 10/13/23 @ 10:58 by SARA LoweryC) Arthritis History of cardioversion Atrial fibrillation Asthma HTN (hypertension) Elevated cholesterol Diabetes Sciatica Sleep apnea Shoulder pain with history of repair of rotator cuff Surgical History (Updated 10/13/23 @ 12:07 by Candice Houston NP-C) H/O colonoscopy History of surgical removal of ganglion cyst Hx of rotator cuff surgery History of cardiac cath Hx of elbow surgery History of carpal tunnel release Hx of eye surgery Hx of tonsillectomy Hx of hernia repair Hx of knee surgery Family History Father Heart disease HTN (hypertension) Mother Atrial fibrillation Sister Diabetes Social History Household Members: Spouse Alcohol intake: current Alcohol intake frequency: does not drink Patient Tobacco Use Status: Never used Tobacco Substance Use Type: Marijuana Current 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 status: retired Review of Systems Const All systems reviewed & are unremarkable except as noted in HPI and below ENT Denies dizziness Card Denies chest pain, Denies chest pain at rest, Denies chest pain with activity, Denies rapid heart rate, Denies pedal edema, Denies edema, Denies leg edema, Denies lightheadedness, Denies palpitations, Denies dyspnea, Reports dyspnea on exertion and Denies orthopnea Resp Denies cough, Denies dyspnea and Reports dyspnea on exertion GI Denies hematochezia and Denies change in stool character Musc Denies abnormal gait, Denies limited range of motion, Denies muscle cramps, Denies muscle weakness, Denies numbness, Denies radiating pain into limb, Denies stiffness and Denies tingling Neuro Denies abnormal gait, Denies dizziness, Denies numbness and Denies tingling Endo Denies palpitations Physical Exam Vital Signs: Last Vital Signs Pulse 66 10/13/23 09:14 BP 134/82 10/13/23 09:14 BMI result Body Mass Index 47.1 Const General: cooperative, healthy appearing, comfortable and no acute distress Orientation/consciousness: patient oriented x3 Neck Neck: Yes normal visual inspection and Yes no JVD Resp Effort & Inspection: normal respiratory effort Auscultation: clear to auscultation bilaterally, no crackles, no rales, no rhonchi and no wheezes Cardio Jugular venous distension: no JVD Rate: regular rate Rhythm: regular rhythm Heart sounds: S1 normal heart sound present, S2 normal heart sound present, no murmurs and no rubs Neuro General: patient oriented x3 Extrem Other: sock markings General: Yes normal to inspection Psych Appearance: grossly normal Mental Status: mental status grossly normal Speech and movement: Normal speech and movement present Assessment & Plan Assessment & Plan (1) Atrial fibrillation: Comment: dx 02/2022-in for colonoscopy-afib noted, colonoscopy canceled, sent to [facility]- [facility] started Code(s): I48.91 - Unspecified atrial fibrillation Plan: History of paroxysmal atrial fibrillation. Patient states he does not feel heart palpitations or shortness of breath with AFib. It has been found incidentally in the past. He did undergo a cardioversion in the past which was unsuccessful. He was then put on amiodarone and repeat cardioversion was done on 06/24/2022 with successful conversion back to sinus rhythm. It seems that at some point his amiodarone was changed over to flecainide. Flecainide was then stopped due to symptomatic bradycardia. More recently he has been maintained on only metoprolol 25 mg b.i.d.. He has not had any known recurrent atrial fibrillation. He has a cardio mobile device at home. He used it recently and it said possible atrial fibrillation. Strips reviewed by me show artifact and irregular rhythm which seems to be sinus with PACs. Heart tones today sound mostly regular with early beats most consistent with PACs. No obvious AFib at present. Recommended Holter monitor for evaluation and he declines as he has cardio mobile device. He will continue to do random readings and call us if there are concerns for atrial fibrillation. He will continue on Eliquis 5 mg b.i.d.. Continue metoprolol. Cardiology follow-up in 6 months, sooner if needed. (2) Coronary artery disease: Code(s): I25.10 - Atherosclerotic heart disease of [place] coronary artery without angina pectoris Plan: Patient has chronic shortness of breath with exertion. He is morbidly obese. He did undergo a nuclear stress test 03/24/2022 which was equivocal for possible apical and distal lateral wall ischemia. He then underwent a CTA of the coronary arteries on 07/25/2022 which showed mid LAD 50% stenosis, minimal calcifications of the left main, left circumflex and RCA. He then underwent a cardiac catheterization on 09/19/2022 which showed proximal LAD 30-40% stenosis. Nuclear stress test was felt to be false positive. His shortness of breath is not felt to be an anginal symptom. He has shortness of breath likely related to his morbid obesity and deconditioning. He has not on aspirin as he is on Eliquis. He is on atorvastatin 40 mg daily. Labs are followed by his PCP. [place] LDL goal less than 70. Will forward this note to PCP for review. He is on metoprolol 25 mg b.i.d.. Signs and symptoms of angina reviewed with him. Emergency care if ever needed for symptoms (3) History of cardiac cath: Comment: 09/19/2022, left main, left circumflex, RCA all normal, mild proximal LAD stenosis 30-40%. Code(s): Z98.890 - Other specified postprocedural states Plan: As above (4) Hyperlipidemia: Code(s): E78.5 - Hyperlipidemia, unspecified Plan: [place] LDL goal less than 70. Continue atorvastatin. Labs followed by PCP Plan Time spent on chart review, documentation, interview and assessment Coding Level of Care Code Est Pt Level 4 (54076) Diagnoses Atrial fibrillation I48.91 Coronary artery disease I25.10 History of cardiac cath Z98.890 Hyperlipidemia E78.5 Time Spent (min) 28
== END 2023-10-13 10:11 | disposition home or self-care (01) ==
PROVIDERS: PCP Internal Medicine; Visit Provider Nurse Practitioner Family
DX: I48.91 Unspecified atrial fibrillation (principal); I25.10 Atherosclerotic heart disease of native coronary artery without angina pectoris; Z98.890 Other specified postprocedural states; E78.5 Hyperlipidemia, unspecified
CPT/HCPCS: 99214

== ENCOUNTER → 2023-10-13 09:09 | Outpatient (BNVA) | payer MEDICARE, SELFPAY | PROVIDERS: PCP Internal Medicine; Visit Provider Nurse Practitioner Family | DX: I48.0 Paroxysmal atrial fibrillation (principal); I25.10 Atherosclerotic heart disease of native coronary artery without angina pectoris; E78.5 Hyperlipidemia, unspecified; Z79.01 Long term (current) use of anticoagulants; Z79.899 Other long term (current) drug therapy | CPT/HCPCS: 99212 ==

== ENCOUNTER 2023-10-28 10:47 | Outpatient (REF) | payer MEDICARE, SELFPAY ==
[2023-10-28 14:28] LABS: MANUAL DIFF FLAG NO
[2023-10-28 14:33] LABS: Basophils Percent Auto 0.4 % (0-2); Eosinophils Absolute Auto 0.2 X10*3/uL (0.0-0.4); Eosinophils Percent Auto 3.2 % (0-4); Hemoglobin 15.6 g/dl (14.0-18.0); Imm Gran Abs Auto 0.05 X10*3/uL (0.00-0.03); Imm Gran Pct Auto 0.9 % (0.0-0.4); Lymphocytes Absolute Auto 1.1 X10*3/uL (1.2-4.9); Lymphocytes Percent Auto 19.3 % (20-40); Mean Corpuscular HGB Conc 32.5 g/dl (31.0-36.0); Mean Corpuscular Hemoglobin 28.7 pg (27.0-33.0); Mean Corpuscular Volume 88.4 fL (80.0-98.0); Mean Platelet Volume 9.7 fL (9.4-12.4); Monocytes Absolute Auto 0.5 X10*3/uL (0.1-1.2); Monocytes Percent Auto 8.2 % (2-11); Neutrophils Absolute Auto 3.8 x10*3/uL (2.0-8.3); Platelet Count 153 X10*3/uL (160-400); Red Blood Count 5.43 X10*6/uL (4.60-5.80); Red Cell Distribution Width 14.8 % (11.0-16.0); White Blood Count 5.6 X10*3/uL (4.8-10.8)
[2023-10-28 14:59] LABS: Alanine Aminotransferase 33 U/L (0-40); Alkaline Phosphatase 73 U/L (39-117); Anion Gap 13 (12-20); Aspartate Amino Transferase 24 U/L (5-37); Bilirubin Total 0.7 mg/dL (0.0-1.0); Blood Urea Nitrogen 14 mg/dL (9-16); Calcium 8.8 mg/dL (8.4-10.2); Carbon Dioxide 24 mmol/L (22-29); Chloride 106 mmol/L (96-108); Cholesterol 146 mg/dL (<200); Estimated Glomerular Filt Rate > 60; Glucose Random 130 mg/dL (60-115); HDL Cholesterol 34 mg/dL (>40); LDL Cholesterol Calculated 62 mg/dL (<100); Potassium 4.1 mmol/L (3.3-5.1); Sodium 139 mmol/L (135-145); Total Protein 7.9 g/dL (6.5-8.0); Triglycerides 251 mg/dL (<150)
[2023-10-28 15:06] LABS: Prostate Specific Antigen 0.66 ng/mL (<0.05-4.0)
[2023-10-28 15:08] LABS: TSH reflex Free T4 1.06 uIU/mL (0.32-4.0)
== END 2023-10-28 10:48 | disposition home or self-care (01) ==
LOC: HO.CHCLDS 10:47
PROVIDERS: Visit Provider Internal Medicine
DX: E11.9 Type 2 diabetes mellitus without complications (principal); Z12.5 Encounter for screening for malignant neoplasm of prostate
CPT/HCPCS: 36415; 80053; 80061; 84153; 84443; 85025

== ENCOUNTER 2023-11-11 14:28 | Outpatient (REF) | payer MEDICARE, SELFPAY ==
--- NOTE | ~2023-11-11 | XR_ITS ---
EXAMINATION: XR SHOULDER, LEFT CLINICAL INFORMATION: Pain COMPARISON: None available. TECHNIQUE: AP external rotation, Grashey, scapular Y, and axillary views of the left shoulder. FINDINGS: Severe degenerative changes of the left shoulder joint with joint space narrowing, large osteophytosis, and increased sclerosis with flattening of the humeral head. There is an indeterminate soft tissue mass measuring 8.1 cm along the mid humeral shaft. No periosteal reaction or cortical erosion associated at this site, although evaluation is limited. XR/XR shoulder LT min 2V IMPRESSION: * Severe degenerative changes of the left shoulder joint. * Indeterminate soft tissue mass measuring 8.1 cm along the mid humeral shaft. No periosteal reaction or cortical erosion associated at this site, although evaluation is limited. Further evaluation with MRI is recommended.
== END 2023-11-11 14:29 | disposition home or self-care (01) ==
LOC: HO.HMGCX 14:28
PROVIDERS: PCP Internal Medicine; Visit Provider Internal Medicine
DX: M25.512 Pain in left shoulder (principal)
CPT/HCPCS: 73030

== ENCOUNTER 2023-11-13 11:07 | Outpatient (REF) | payer MEDICARE, SELFPAY ==
[2023-11-13 14:53] LABS: Creatinine Urine 46.53 mg/dL; Microalbum/Creatinine Ratio Ur 60.1 ug/mg cr (<30)
== END 2023-11-13 11:08 | disposition home or self-care (01) ==
LOC: HO.CHCLDS 11:07
PROVIDERS: Visit Provider Internal Medicine
DX: E11.9 Type 2 diabetes mellitus without complications (principal)
CPT/HCPCS: 82043; 82570

== ENCOUNTER 2023-12-10 10:51 | Outpatient (AMB) | payer MEDICARE, SELFPAY ==
[2023-12-10 10:59] VITALS: BMI 47.0
--- NOTE | 2023-12-10 10:59 | A.OFFVIS_ITS ---
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 Hx of DM. Patient reports that he has had pain in the left shoulder ongoing for many years now. Hx of appt with Dr. Ken, who recommended TSA. Hx of right RTC repair. He has pasin with reaching and overhead activity. He was taking Tramadol for quite some time which helped but then he was taken off of this. He was taking Celebrex as well but then was placed on Eliquis so he has reduced this to occasional use. He has done home exercises and stretches. 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 [facility] Medical History (Updated 12/13/23 @ 10:15 by Jon Meza MD) Arthritis History of cardioversion Atrial fibrillation Asthma HTN (hypertension) Elevated cholesterol Diabetes Sciatica Sleep apnea Shoulder pain with history of repair of rotator cuff Surgical History (Updated 10/13/23 @ 12:07 by Candice Houston NP-C) H/O colonoscopy History of surgical removal of ganglion cyst Hx of rotator cuff surgery History of cardiac cath Hx of elbow surgery History of carpal tunnel release Hx of eye surgery Hx of tonsillectomy Hx of hernia repair Hx of knee surgery Family History Father Heart disease HTN (hypertension) Mother Atrial fibrillation Sister Diabetes Social History Household Members: Spouse Alcohol intake: current Alcohol intake frequency: does not drink Patient Tobacco Use Status: Never used Tobacco Substance Use Type: Marijuana Current 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 status: retired Physical Exam Vital Signs: BMI result Body Mass Index 47.0 Const General: cooperative, healthy appearing, no acute distress and well groomed Orientation/consciousness: oriented to person and oriented to place HEENT Head: Yes normal to inspection, Yes normocephalic and Yes atraumatic Eyes General: appearance normal, both eyes and all related structures Alignment and Position: alignment normal Conjunctivae: conjunctivae normal EOM: EOMs intact bilaterally Neck Neck: Yes normal visual inspection and Yes trachea midline Resp Other: No rerpiratory distress Effort & Inspection: normal respiratory effort and able to speak in complete sentences Cardio Other: Palpable radial pulse with no appreciable rythmic abnormalities GI Other: No abdominal distension Back/Spine/Pelvis Cervical Spine: normal cervical lordosis and cervical ROM normal Skin General skin exam: no rashes or lesions noted Neuro General: oriented to person, oriented to place and gait normal Extrem Other: His left shoulder has ER to 0 deg and is limited in abduction to 40 deg without scapular recruitment. Results Reviewed Results Reviewed: Severe degenerative changes of the left shoulder joint with joint space narrowing, large osteophytosis, and increased sclerosis with flattening of the humeral head. There is an indeterminate soft tissue mass measuring 8.1 cm along the mid humeral shaft. No periosteal reaction or cortical erosion associated at this site, although evaluation is limited. XR/XR shoulder LT min 2V IMPRESSION: * Severe degenerative changes of the left shoulder joint. * Indeterminate soft tissue mass measuring 8.1 cm along the mid humeral shaft. No periosteal reaction or cortical erosion associated at this site, although evaluation is limited. Further evaluation with MRI is recommended. Assessment & Plan Assessment & Plan (1) History of cardiac cath: Comment: 09/19/2022, left main, left circumflex, RCA all normal, mild proximal LAD stenosis 30-40%. Code(s): Z98.890 - Other specified postprocedural states Plan: Pre operative clearance (2) Osteoarthritis of left shoulder: Code(s): M19.012 - Primary osteoarthritis, left shoulder Plan: This is a 68 yo M with severe left shoulder OA. He is active and uses his hands regularly cannot participate in meaningfully use his left arm. He has had this for years and at this point he would like to be able to live his life without pain and to be able to use his left shoulder. I recommend left TSA. It is very difficult to assess his rotator cuff given his restricted motion, I will order a CT and an MRI for preoperative planning. There was a question of a humeral mass on plain film and so I will also order an MRI of the humerus with and without contrast. I discussed the risks benefits and alternatives including but not limited to the risk of pain, infection, dislocation, nerve injury, stiffness, need for further surgery as well as potential medical complications such as blood clots, pulmonary embolism and cardiac complications. Orders: Orders CT shoulder LT wo IV con Today M19.012 - Primary osteoarthritis, left shoulder MR humerus LT wo/w con Today M89.8X9 - Other specified disorders of bone, unspecified site MR shoulder LT wo con Today M19.012 - Primary osteoarthritis, left shoulder Coding Level of Care Code New Pt Level 4 (55375) Diagnoses History of cardiac cath Z98.890 Osteoarthritis of left shoulder M19.012
== END 2023-12-10 11:45 | disposition home or self-care (01) ==
PROVIDERS: PCP Internal Medicine; Visit Provider Orthopaedic Surgery
DX: M19.012 Primary osteoarthritis, left shoulder (principal)
CPT/HCPCS: 99204

== ENCOUNTER → 2023-12-10 10:51 | Outpatient (BNVA) | payer MEDICARE, SELFPAY | PROVIDERS: PCP Internal Medicine; Visit Provider Orthopaedic Surgery | DX: M19.012 Primary osteoarthritis, left shoulder (principal); Z98.890 Other specified postprocedural states | CPT/HCPCS: 99202 ==

== ENCOUNTER 2024-01-12 14:19 | Outpatient (AMB) | payer MEDICARE, SELFPAY ==
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
== END 2024-01-12 14:55 | disposition home or self-care (01) ==
PROVIDERS: PCP Internal Medicine; Visit Provider Surgery Vascular Surgery
DX: I73.9 Peripheral vascular disease, unspecified (principal)
CPT/HCPCS: 99203

== ENCOUNTER → 2024-01-12 14:19 | Outpatient (BNVA) | payer MEDICARE, SELFPAY | PROVIDERS: PCP Internal Medicine; Visit Provider Surgery Vascular Surgery | DX: I73.9 Peripheral vascular disease, unspecified (principal) | CPT/HCPCS: 99202 ==

== ENCOUNTER 2024-01-14 07:43 | Outpatient (REF) | payer MEDICARE, SELFPAY ==
--- NOTE | ~2024-01-14 | CT_ITS ---
EXAMINATION: CT SHOULDER WITHOUT CONTRAST, LEFT CLINICAL INFORMATION: Primary osteoarthritis, left shoulder. COMPARISON: Radiograph dated 11/11/2023 TECHNIQUE: Axial multidetector volumetric imaging was obtained through the shoulder without intravenous contrast material. Multiplanar reformatted images were submitted. This CT examination was performed using dose optimization techniques as appropriate, variously including the following: *Automated exposure control *Adjustment of mA and/or kV according to patient size (this includes techniques or standardized protocols for targeted exams where dose is matched to indication/reason for exam; i.e. extremities or head) *Use of iterative reconstruction technique DLP: 356 mGy-cm FINDINGS: Severe degenerative arthritis in the glenohumeral joint characterized by severe joint space narrowing, large marginal osteophytes, subchondral sclerosis, subchondral cystic change, and articular surface remodeling. There is mild retroversion of the glenoid with posterior erosion. A cluster of osseous intra-articular loose bodies is present in the joint anteroinferiorly, measuring up to 1.5 cm in diameter.. Glenoid retroversion: 19 degrees Glenoid vault depth: 23 mm There is moderate to severe degenerative arthritis of the acromioclavicular joint. The undersurface of the acromion is curved with no subacromial spurs. Imaged portion of the clavicle is intact. The included portions of the ribs and chest wall are intact without fractures or lesions. No significant pulmonary abnormalities in the imaged portion of the lung. No axillary adenopathy. There is a small glenohumeral joint effusion. There is mild atrophy of the supraspinatus and more marked atrophy of the teres minor. A focal band of fatty replacement is present within the deltoid muscle laterally. CT/CT shoulder LT wo IV con IMPRESSION: 1. Severe glenohumeral osteoarthritis with mild glenoid retroversion and posterior erosion. Multiple intra-articular loose bodies. 2. Moderate to severe acromioclavicular osteoarthritis. 3. Mild supraspinatus and more marked teres minor muscle atrophy. Focal band of fatty replacement in the lateral aspect of the deltoid muscle.
== END 2024-01-14 07:44 | disposition home or self-care (01) ==
LOC: HO.CT 07:43
PROVIDERS: PCP Internal Medicine; Visit Provider Orthopaedic Surgery
DX: M19.012 Primary osteoarthritis, left shoulder (principal)
CPT/HCPCS: 73200

== ENCOUNTER 2024-01-25 13:50 | Outpatient (REF) | payer MEDICARE, SELFPAY ==
--- NOTE | ~2024-01-25 | US_ITS ---
EXAMINATION: US TAWANNA complete, US arterial duplex LE BI CLINICAL INFORMATION: PERIPHERAL VASCULAR DISEASE COMPARISON: None TECHNIQUE: Ankle pulse volume recordings, ankle pressure measurements and ankle brachial indices were obtained of the lower extremity arterial system bilaterally in addition to duplex Doppler techniques with wave form analysis and measurement of velocities in the common femoral, profunda femoral, superficial femoral, popliteal, tibial and peroneal arteries. The study was performed only at rest. FINDINGS: LEFT LE. THE LEFT ANKLE-BRACHIAL INDEX IS: 1.47 2. SEGMENTAL PRESSURES: Ankle: PT 194, DP 165 3. PVR WAVEFORMS: Ankle: Normal 4. DIRECT DUPLEX: Common femoral artery: 106 cm/s, Multiphasic Profunda femoris artery: 57 cm/s, biphasic Superficial femoral artery (proximal): 89 cm/s, Multiphasic Superficial femoral artery (mid): 95 cm/s, Multiphasic Superficial femoral artery (distal): 100 cm/s, Multiphasic Proximal Popliteal artery: 48 cm/s, Multiphasic Mid posterior tibial artery: 153 cm/s, Multiphasic, consistent with mild stenosis Peroneal artery: 49 cm/s, Multiphasic Anterior tibial artery: 79 cm/sec, multiphasic Dorsalis pedis artery: 111 cm/sec, multiphasic RIGHT LE. THE RIGHT ANKLE-BRACHIAL INDEX IS: 1.17 2. SEGMENTAL PRESSURES (mmHg): Ankle: PT 155, DP 151 3. PVR WAVEFORMS: Ankle: Normal 4. DIRECT DUPLEX: Common femoral artery: 109 cm/s, Multiphasic Profunda femoris artery: 61 cm/s, biphasic Superficial femoral artery (proximal): 81 cm/s, Multiphasic Superficial femoral artery (mid): 114 cm/s, Multiphasic Superficial femoral artery (distal): 154 cm/s, Multiphasic Proximal Popliteal artery: 56 cm/s, Multiphasic Distal posterior tibial artery: 74 cm/s, multiphasic Peroneal artery: Not visualized Anterior tibial artery: 35 cm/sec, multiphasic Dorsalis pedis artery: 49 cm/sec, monophasic US/US arterial duplex LE BI IMPRESSION: 1. Left lower extremity TAWANNA is elevated related to calcified vessels. Elevated velocity in the mid left posterior tibial artery suggesting a mild stenosis. 2. Right lower extremity with no significant arterial disease by TAWANNA or waveforms, though TAWANNA is also likely elevated related to calcified vessels.
== END 2024-01-25 13:51 | disposition home or self-care (01) ==
LOC: HO.US 13:50
PROVIDERS: PCP Internal Medicine; Visit Provider Surgery Vascular Surgery
DX: I73.9 Peripheral vascular disease, unspecified (principal)
CPT/HCPCS: 93923; 93925

== ENCOUNTER 2024-03-01 09:09 | Outpatient (AMB) | payer MEDICARE, SELFPAY ==
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
[2024-03-01 09:20] VITALS: BMI 47.0
== END 2024-03-01 10:39 | disposition home or self-care (01) ==
PROVIDERS: PCP Internal Medicine; Visit Provider Surgery Vascular Surgery
DX: I73.9 Peripheral vascular disease, unspecified (principal)
CPT/HCPCS: 99213

== ENCOUNTER → 2024-03-01 09:09 | Outpatient (BNVA) | payer MEDICARE, SELFPAY | PROVIDERS: PCP Internal Medicine; Visit Provider Surgery Vascular Surgery | DX: I73.9 Peripheral vascular disease, unspecified (principal); Z96.653 Presence of artificial knee joint, bilateral | CPT/HCPCS: 99212 ==

== ENCOUNTER 2024-03-31 10:28 | Outpatient (REF) | payer MEDICARE, SELFPAY ==
--- NOTE | ~2024-03-31 | US_ITS ---
EXAMINATION: Ultrasound of prostate. CLINICAL INFORMATION: Nocturia COMPARISON: None available TECHNIQUE: Transrectal real-time ultrasound examination of the prostate gland was performed. FINDINGS: Targeted ultrasound examination of prostate gland shows focal echogenic calcifications. The prostate gland measures 3.7 cm in AP diameter, 4.9 cm in width, 4.8 cm in vertical height, calculated volume of 46.3 mL. US/US prostate volume IMPRESSION: Enlarged prostate gland is found. No discrete focal mass lesion could be identified.
== END 2024-03-31 10:29 | disposition home or self-care (01) ==
LOC: HO.US 10:28
PROVIDERS: PCP Internal Medicine; Visit Provider Internal Medicine
DX: R35.1 Nocturia (principal)
CPT/HCPCS: 76872

== ENCOUNTER 2024-04-18 09:27 | Outpatient (AMB) | payer MEDICARE, SELFPAY ==
--- NOTE | 2024-04-18 09:36 | MHC.OFFVIS ---
Vital Signs 04/18/24 09:37 Height 5 ft 7 in Weight 291 lb 7.218 oz BMI 45.6 BP 120/62 Blood Pressure Location Lt brachial Position Sitting Pulse 80 Pulse Source Monitor Intake Visit Reasons: 6 mth f/u-clearance for L TSA on 07/13/24 Intake Note: 6mth f/up [employer] T[employer] Required: No Accompanied by: Self / Same As Patient Allergies iron Allergy (Severe, Verified 03/01/24 09:30) Rash Medication List - Last Reconciled 04/18/24 by Sp Akhtar MD acetaminophen 1,000 mg PO Q6H PRN albuterol sulfate 90 mcg/actuation (Ventolin HFA) 1 - 2 inhalations inhalation Q4-6H PRN apixaban (Eliquis) 5 mg PO BID atorvastatin 40 mg PO BEDTIME cetirizine 10 mg PO QAM cholecalciferol (vitamin D3) 25 mcg PO DAILY cyanocobalamin (vitamin B-12) (Vitamin B-12) 1,000 mcg PO DAILY empagliflozin (Jardiance) 25 mg PO DAILY glipizide ER 5 mg PO DAILY lisinopril 10 mg PO DAILY metformin 1,000 mg PO BIDWM metoprolol tartrate 25 mg PO BID montelukast 10 mg PO BEDTIME HPI Comments Details: 68-year-old gentleman here for follow-up. He has background history of obesity, paroxysmal atrial fibrillation and dyspnea on exertion. He underwent stress testing which showed equivocal changes of apical ischemia. He was complaining of dyspnea on exertion and we decided to do cardioversion 1st. He underwent cardioversion which was unsuccessful. He was loaded with amiodarone and we re-attempted the cardioversion which was successful. He is currently on 200 mg of amiodarone. He continues to be in sinus rhythm. He is saying since cardioversion he feels more energetic and has less dyspnea. Definitely has improved after cardioversion. He has strong family history of coronary disease and his father had RI at age 50. His nuclear perfusion imaging showed apical ischemia. He was sent for coronary CTA after discussion which showed mid LAD 50% lesion. On follow-up he was complaining of chest discomfort. After discussion was taken for diagnostic angiography which showed 30-40% mid LAD stenosis. He was referred to electrophysiology at [facility]. His amiodarone was stopping was started on flecainide. Subsequent to that he had bradycardia and his heart rate was in 50s and he was symptomatic. He called electrophysiology office and was advised to stop the flecainide. He has been taking metoprolol 25 mg twice a day. He has been keeping a log of his blood pressure and heart rates and has been stable. Denying any significant symptoms on follow-up other than fatigue. He has been drinking alcohol and mostly drinks because of significant arthritis involving his back and knees. 06/08/23: He has been doing fine on f/u. Denying any significant palpitations or dyspnea. He has some nonanginal chest discomfort. He is taking meds regularly. 04/18/2024: He returns for follow-up. He needs left shoulder surgery. No new symptoms. No chest discomfort shortness of breath. Occasionally gets palpitations. In sinus rhythm in the office currently. Taking Eliquis and metoprolol tartrate 25 mg twice a day. Blood pressure well controlled. [facility] Medical History Arthritis History of cardioversion Atrial fibrillation Asthma HTN (hypertension) Elevated cholesterol Diabetes Sciatica Sleep apnea Shoulder pain with history of repair of rotator cuff Surgical History H/O colonoscopy History of surgical removal of ganglion cyst Hx of rotator cuff surgery History of cardiac cath Hx of elbow surgery History of carpal tunnel release Hx of eye surgery Hx of tonsillectomy Hx of hernia repair Hx of knee surgery Family History Father Heart disease HTN (hypertension) Mother Atrial fibrillation Sister Diabetes Social History Household Members: Spouse Alcohol intake: current Alcohol intake frequency: does not drink Patient Tobacco Use Status: Never used Tobacco Substance Use Type: Marijuana Current 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 status: retired Review of Systems Const Denies chills, Denies fatigue, Denies fever(s), Denies frequent falls, Denies weakness, Denies weight gain and Denies weight loss ENT Denies dizziness Card Denies chest pain, Denies leg edema, Denies lightheadedness, Denies palpitations, Denies dyspnea and Denies dyspnea on exertion Resp Denies cough, Denies dyspnea and Denies dyspnea on exertion GI Denies hematochezia Musc Denies abnormal gait, Denies muscle weakness, Denies numbness, Denies radiating pain into limb and Denies tingling Neuro Denies abnormal gait, Denies dizziness, Denies frequent falls, Denies numbness, Denies tingling and Denies weakness Endo Denies fatigue and Denies palpitations Physical Exam Vital Signs: Last Vital Signs Pulse 80 04/18/24 09:37 BP 120/62 04/18/24 09:37 BMI result Body Mass Index 45.6 GENERAL APPEARANCE: in no acute distress, pleasant. NECK: no carotid bruit, no jugular venous distention. SKIN: no suspicious lesions, warm and dry. HEART: no murmurs, regular rate and rhythm. LUNGS: clear to auscultation bilaterally. ABDOMEN: soft, nontender. EXTREMITIES: no edema. PERIPHERAL PULSES: equal. NEUROLOGIC: No gross deficits, AAO X 3 Office Procedures EKG Details: Sinus rhythm 80 beats per minute, right axis deviation, poor R-wave progression, QTC 399 milliseconds. [id number], Complete Assessment & Plan Assessment & Plan (1) Atrial fibrillation: Code(s): I48.91 - Unspecified atrial fibrillation Category: Medical (2) Preop cardiovascular exam: Code(s): Z01.810 - Encounter for preprocedural cardiovascular examination Category: Medical Plan Pleasant 68-year-old gentleman who is here for follow-up. He has background of paroxysmal atrial fibrillation. He was on flecainide at 1 stage but has been off flecainide. On apixaban 5 mg twice a day and metoprolol tartrate 25 mg twice a day. He is in sinus rhythm. Blood pressure is well controlled on lisinopril and metoprolol. He needs left shoulder replacement surgery. He is intermediate risk for perioperative complications. He should hold lisinopril on day of surgery but metoprolol must not be stopped because he has been taking beta-blockers chronically and abrupt discontinuation can affect dayan procedure complications. He will see us back in 6 months. Thank you for allowing me to participate in the care of your patient. Please feel free to contact me if you have any questions. Coding Level of Care Code Est Pt Level 4 (69782) Diagnoses Atrial fibrillation I48.91 Preop cardiovascular exam Z01.810 CPT Codes EKG - CPT: 85184-[id number], Complete ([id number])
[2024-04-18 09:37] VITALS: BP 120/62; PULSE 80; BMI 45.6
== END 2024-04-18 10:07 | disposition home or self-care (01) ==
PROVIDERS: PCP Internal Medicine; Visit Provider Internal Medicine Cardiovascular Disease
DX: I48.91 Unspecified atrial fibrillation (principal); Z01.810 Encounter for preprocedural cardiovascular examination
CPT/HCPCS: 93010; 99214

== ENCOUNTER → 2024-04-18 09:27 | Outpatient (BNVA) | payer MEDICARE, SELFPAY | PROVIDERS: PCP Internal Medicine; Visit Provider Internal Medicine Cardiovascular Disease | DX: Z01.810 Encounter for preprocedural cardiovascular examination (principal); I48.0 Paroxysmal atrial fibrillation; Z82.49 Family history of ischemic heart disease and other diseases of the circulatory system; E66.9 Obesity, unspecified; R06.00 Dyspnea, unspecified; I10 Essential (primary) hypertension; Z79.899 Other long term (current) drug therapy | CPT/HCPCS: 93005; 99212 ==

== ENCOUNTER → 2024-06-07 09:07 | Outpatient (BNVA) | payer MEDICARE, SELFPAY | PROVIDERS: PCP Internal Medicine | DX: Z01.818 Encounter for other preprocedural examination (principal) ==

== ENCOUNTER 2024-07-07 14:50 | Outpatient (AMB) | payer MEDICARE, SELFPAY ==
--- NOTE | 2024-07-07 15:24 | MHC.OFFVIS ---
Intake Visit Reasons: L TSA w/NE 07/13/24 Intake Note: Olive is a 69 year old male who presents today for a pre op appointment for his Left TSA 07/13/24 NE. Allergies iron Allergy (Severe, Verified 07/07/24 15:24) Rash ( from oral supplement) HPI HPI L TSA w/NE 07/13/24: Details: 69-year-old male who presents in the office today for his preoperative history and physical exam prior to a left shoulder arthroplasty to be performed on 07/13/[address] Meza. The patient reports his pain is limiting his daily activities. He has tried and failed all conservative treatments. Therefore, he has elected to proceed with a left shoulder arthroplasty. Patient has an allergy history, as follows: -Iron, oral supplement; Rash. Patient is currently taking, as follows: -Acetaminophen 1,000 mg PO Q6H PRN. -Albuterol sulfate 90 mcg/actuation 1-2 inhalation Q4-6H PRN. -Apixaban 5 mg PO BID. - Atorvastatin 40 mg PO bedtime. -Cetirizine 10 mg PO QAM. -Cholecalciferol 25 mcg PO QAM. -Cyanocobalamin 1,000 mcg PO QAM. -Dulaglutide 0.75 mg subcut QWEEK. -Empagliflozin 25 mg PO QAM. -Lisinopril 10 mg PO QAM. -Metformin 1,000 mg PO BID. -Metoprolol tartrate 25 mg PO BID. -Montelukast 10 mg PO bedtime. -Tamsulosin 0.4 mg PO bedtime. Patient has a medical history, as follows: -Peripheral artery disease. -Hyperlipidemia. -Hemorrhoids. -Coronary artery disease. -Abnormal stress test. -Equivocal stress test. -Shortness of breath. -Atrial fibrillation. -History of cardiac cath on 09/19/22. -History of cardioversion. -Asthma. -Hypertension. -Diabetes. -Sciatica. -Sleep apnea. Patient has a surgical history, as follows: -Hx of colonoscopy. -Hx of surgical removal of ganglion cyst, left wrist. -Hx of rotator cuff surgery, right. -Hx of elbow surgery, right. -Hx of carpal tunnel release, right. -Hx of eye surgery in 8. -Hx of tonsillectomy in 1962. -Hx of hernia repair in 1961. -Hx of total knee replacement, right knee in 2013 and left knee in 2015. Patient has a social history, as follows: -Substance use: Marijuana. FOR[facility]LY [facility], [facility] Medical History (Updated 07/04/24 @ 12:02 by Anna Marie Herrera RN) Family history of anesthesia complication Arthritis History of cardioversion Atrial fibrillation Asthma HTN (hypertension) Elevated cholesterol Diabetes Sciatica Sleep apnea Shoulder pain with history of repair of rotator cuff Surgical History (Updated 07/04/24 @ 11:57 by Anna Marie Herrera RN) H/O colonoscopy History of surgical removal of ganglion cyst Hx of rotator cuff surgery History of cardiac cath Hx of elbow surgery History of carpal tunnel release Hx of eye surgery Hx of tonsillectomy Hx of hernia repair Hx of knee surgery Family History Father Heart disease HTN (hypertension) Mother Atrial fibrillation Sister Diabetes Social History Household Members: Spouse Are you a primary patient care to a significant other at home: No Do you presently have visiting nurse or other home services: No Alcohol intake: current Alcohol intake frequency: does not drink Patient Tobacco Use Status: Never used Tobacco Substance Use Type: Marijuana Current 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 status: retired Review of Systems Const All systems reviewed & are unremarkable except as noted in HPI and below Physical Exam Const General: cooperative, healthy appearing, comfortable, no acute distress, well developed, alert and awake Orientation/consciousness: patient oriented x3 HEENT Head: Yes normal to inspection, Yes normocephalic and Yes atraumatic Eyes General: appearance normal, both eyes and all related structures Neck Neck: Yes normal visual inspection and Yes no lymphadenopathy Resp Effort & Inspection: normal respiratory effort and able to speak in complete sentences Cardio Rate: regular rate Peripheral pulses: Peripheral pulses 2+ throughout GI Inspection: Yes normal to inspection Palpation (GI): Soft to palpation Skin General skin exam: no rashes or lesions noted Neuro General: patient oriented x3 Extrem Other: His left shoulder has ER to 0 deg and is limited in abduction to 40 deg without scapular recruitment. Psych Mental Status: mental status grossly normal Assessment & Plan Assessment & Plan (1) Osteoarthritis of left shoulder: Code(s): M19.012 - Primary osteoarthritis, left shoulder Category: Medical Plan Mr. Tobias is a 69-year-old male who presents in the office today for his preoperative history and physical exam prior to a left shoulder arthroplasty to be performed on 07/13/[address] Meza. The patient reports his pain is limiting his daily activities. He has tried and failed all conservative treatments. Therefore, he has elected to proceed with a left shoulder arthroplasty. Patient has an allergy history, as follows: -Iron, oral supplement; Rash. Patient is currently taking, as follows: -Acetaminophen 1,000 mg PO Q6H PRN. -Albuterol sulfate 90 mcg/actuation 1-2 inhalation Q4-6H PRN. -Apixaban 5 mg PO BID. - Atorvastatin 40 mg PO bedtime. -Cetirizine 10 mg PO QAM. -Cholecalciferol 25 mcg PO QAM. -Cyanocobalamin 1,000 mcg PO QAM. -Dulaglutide 0.75 mg subcut QWEEK. -Empagliflozin 25 mg PO QAM. -Lisinopril 10 mg PO QAM. -Metformin 1,000 mg PO BID. -Metoprolol tartrate 25 mg PO BID. -Montelukast 10 mg PO bedtime. -Tamsulosin 0.4 mg PO bedtime. Patient has a medical history, as follows: -Peripheral artery disease. -Hyperlipidemia. -Hemorrhoids. -Coronary artery disease. -Abnormal stress test. -Equivocal stress test. -Shortness of breath. -Atrial fibrillation. -History of cardiac cath on 09/19/22. -History of cardioversion. -Asthma. -Hypertension. -Diabetes. -Sciatica. -Sleep apnea. Patient has a surgical history, as follows: -Hx of colonoscopy. -Hx of surgical removal of ganglion cyst, left wrist. -Hx of rotator cuff surgery, right. -Hx of elbow surgery, right. -Hx of carpal tunnel release, right. -Hx of eye surgery in 1958. -Hx of tonsillectomy in 1962. -Hx of hernia repair in 1961. -Hx of total knee replacement, right knee in 2013 and left knee in 2014. Patient has a social history, as follows: -Substance use: Marijuana. I discussed in detail the procedure and what to expect pre and post operatively. We discussed the risks, benefits and alternatives to the surgery and the rehabilitation course. The risks include infection, bleeding, nerve injury, ongoing pain, swelling, and stiffness, perioperative risk of injury to bones and soft tissues, and blood clots. I have answered all questions and with their understanding they have consented to move forward with a left shoulder arthroplasty to be performed on 07/13/[address] Meza. the patient was placed in an abduction shoulder sling, off the shelf. The patient will hold on Eliquis 5 mg BID two days before his surgery as directed by his PCP. His last dose of dulaglutide 0.75 mg subcut QWEEK was on 07/05/24 and his last dose of empagliflozin 25 mg will be on 07/09/24. Follow up will be on 07/28/24, or sooner if needed. Patient Instructions: Scribed by Dara Pascual pesticide use medical coordinator, for Graciela Alcaraz PA-C on 07/07/24 at 3:46 pm EST. Coding Level of Care Code Global (91395) Diagnoses Osteoarthritis of left shoulder M19.012
== END 2024-07-07 15:46 | disposition home or self-care (01) ==
PROVIDERS: PCP Internal Medicine; Visit Provider Physician Assistant
DX: M19.012 Primary osteoarthritis, left shoulder (principal)
CPT/HCPCS: 99024

== ENCOUNTER → 2024-07-07 14:50 | Outpatient (BNVA) | payer MEDICARE, SELFPAY | PROVIDERS: PCP Internal Medicine; Visit Provider Physician Assistant | DX: Z01.818 Encounter for other preprocedural examination (principal); M19.012 Primary osteoarthritis, left shoulder | CPT/HCPCS: 99212 ==

== ENCOUNTER 2024-07-13 06:24 | Day surgery (SDC) | payer MEDICARE, SELFPAY ==
[2024-07-04 12:08] VITALS: BP 127/74; PULSE 63; RESP 20; O2SAT 96; BMI 45.4
--- NOTE | 2024-07-04 12:30 | P.CONAN_ITS ---
Documented by User: Manisha Salazar NP 07/12/24 08:55 HPI - Anesthesia Eval Consult details Narrative: 69yo M for Left Shoulder Total Arthroplasty, 07/13/24 Follows [facility] cardiology for afib, htn. 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 DM: FBS ~ 100 Afib: Eliquis LILLY: CPAP with all sleep Anesthesia Pre-Procedure Meds Is the patient on any of the following meds?: GLP1/DPP4 and SGLT2 Inhib PMFSH Active Problems Active Problems: All Active Problems Preop cardiovascular exam (Acute) PAD (peripheral artery disease) (Acute) Bone mass (Acute) Osteoarthritis of left shoulder (Acute) Hyperlipidemia (Acute) Hemorrhoids (Acute) Coronary artery disease (Acute) Abnormal stress test (Acute) Equivocal stress test (Acute) Shortness of breath (Acute) Atrial fibrillation (Acute) Encounter for screening colonoscopy (Acute) History of cardiac cath (Acute) Atrial fibrillation (Acute) Past Medical History Medical History (Updated 07/04/24 @ 12:02 by Anna Marie Herrera RN) Family history of anesthesia complication Arthritis History of cardioversion Atrial fibrillation Asthma HTN (hypertension) Elevated cholesterol Diabetes Sciatica Sleep apnea Shoulder pain with history of repair of rotator cuff Family History Family History Father Heart disease HTN (hypertension) Mother Atrial fibrillation Sister Diabetes Family history of problems with anesthesia: No Surgical History Surgical History (Updated 07/04/24 @ 11:57 by Anna Marie Herrera RN) H/O colonoscopy History of surgical removal of ganglion cyst Hx of rotator cuff surgery History of cardiac cath Hx of elbow surgery History of carpal tunnel release Hx of eye surgery Hx of tonsillectomy Hx of hernia repair Hx of knee surgery History of Problems with Anesthesia: No Social History Social History Household Members: Spouse Are you a primary restorative care technician to a significant other at home: No Do you presently have visiting nurse or other home services: No Alcohol intake: current Alcohol intake frequency: does not drink Patient Tobacco Use Status: Never used Tobacco Use of substances other than those prescribed or required for medical reasons: Yes Substance Use Type: Marijuana Substance Use Type Other:: edibles Substance Use Frequency: Daily Have you been hit, kicked, punched, or otherwise hurt by someone within the past year? If so, by whom?: No Spiritual Healthcare Practices: none Adventism Healthcare Practices: none Cultural Healthcare Practices: none Are you DNR?: No Advance Directives Information Provided: Yes (as above noted) Advance Directives on File: No Recently lost weight without trying: No Eating poorly because of decreased appetite: No Nutrition Risks: No Nutritional Risk Poor oral hygiene: No (upper right front chipped tooth / uses production lead for jaw clenching) Current 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 status: retired [employer] Allergies Allergy/AdvReac Type Severity Reaction Status Date / Time iron Allergy Severe Rash ( Verified 07/07/24 15:24 from oral supplement) Home Medications ?Medication ?Instructions ?Recorded ?Confirmed ?Last Taken ?Type atorvastatin 40 mg tablet 40 mg PO BEDTIME 02/20/22 07/13/24 02/23/22 History cholecalciferol (vitamin D3) 25 25 mcg PO QAM 02/20/22 07/13/24 04/10/23 08:00 History mcg (1,000 unit) capsule cyanocobalamin (vitamin B-12) 1,000 mcg PO QAM 02/20/22 07/13/24 04/10/23 08:00 History 1,000 mcg tablet (Vitamin B-12) empagliflozin 25 mg tablet 25 mg PO QAM 02/20/22 07/13/24 07/10/24 History (Jardiance) lisinopril 10 mg tablet 10 mg PO QAM 02/20/22 07/13/24 04/10/23 08:00 History montelukast 10 mg tablet 10 mg PO BEDTIME 02/20/22 07/13/24 02/23/22 History albuterol sulfate 90 mcg/actuation 1 - 2 inh inhalation Q4-6H PRN 02/24/22 07/13/24 Unknown History aerosol inhaler (Ventolin HFA) Shortness Of Breath acetaminophen 500 mg tablet 1,000 mg PO Q6H PRN Pain 04/24/22 07/13/24 Unknown History apixaban 5 mg tablet (Eliquis) 5 mg PO BID 04/24/22 07/13/24 06/30/24 History cetirizine 10 mg tablet 10 mg PO QAM 07/02/22 07/13/24 Unknown History tamsulosin 0.4 mg capsule 0.4 mg PO BEDTIME 06/07/24 07/13/24 Unknown History dulaglutide 0.75 mg/0.5 mL 1.5 mg subcut QWEEK 07/04/24 07/13/24 07/05/24 History subcutaneous pen injector (Trulicity) Exam Height,Weight and Vital Signs: Height 5 ft 7 in Weight 131.542 kg Last Vital Signs Pulse 63 07/04/24 12:08 Resp 20 07/04/24 12:08 BP 127/74 07/04/24 12:08 Pulse Ox 96 07/04/24 12:08 O2 Del Method Room Air 07/04/24 12:08 Pertinent Lab Results Pertinent Lab Results: Lab Results 07/04/24 07/04/24 07/04/24 Range/Units 12:20 13:00 13:07 WBC 5.7 (4.8-10.8) X10*3/uL RBC 5.16 (4.60-5.80) X10*6/uL Hgb 15.1 (14.0-18.0) g/dl Hct 46.1 (42.0-52.0) % MCV 89.3 (80.0-98.0) fL MCH 29.3 (27.0-33.0) pg MCHC 32.8 (31.0-36.0) g/dl RDW 14.4 (11.0-16.0) % Plt Count 134 L (160-400) X10*3/uL MPV 9.5 (9.4-12.4) fL Absolute Nucleated RBC 0.000 (0.0-0.012) X10*3/uL Nucleated RBC % (auto) 0.0 (0.0-0.2) /100WBC Sodium 137 (135-145) mmol/L Potassium 4.3 (3.3-5.1) mmol/L Chloride 107 (96-108) mmol/L Carbon Dioxide 24 (22-29) mmol/L Anion Gap 10 L (12-20) BUN 12 (9-16) mg/dL Creatinine 0.85 (0.5-1.4) mg/dL Estim Creat Clear Calc 108.5 Estimated GFR > 60 Random Glucose 129 H (60-115) mg/dL Estimat Average Glucose 140 mg/dL Hemoglobin A1c % 6.5 H (<6.0) % Calcium 9.2 (8.4-10.2) mg/dL Nasal Screen MRSA (PCR) NEGATIVE (Negative) Nasal S. aureus Screen POSITIVE A (Negative) Nasal MRSA/S.aureus Interp SEE NOTE Blood Type O Positive Antibody Screen NEGATIVE Narrative Narrative: EKG 04/2024 Sinus rhythm 80 beats per minute, right axis deviation, poor R-wave progression, QTC 399 milliseconds. Per 09/2023 cardiology note: nuclear stress test 03/24/2022 which was equivocal for possible apical and distal lateral wall ischemia. He then underwent a CTA of the coronary arteries on 07/25/2022 which showed mid LAD 50% stenosis, minimal calcifications of the left main, left circumflex and RCA. He then underwent a cardiac catheterization on 09/19/2022 which showed proximal LAD 30-40% stenosis. Nuclear stress test was felt to be false positive. ECHO 2021 Conclusions: - 1. Normal LV systolic function mild LVH 2. Moderate left atrial enlargement 3. Normal cardiac valvular Doppler 4. Mildly dilated ascending aorta at 3.9 cm 5. No gross pericardial effusion Airway Mallampati Class: III TM Dist: <=3cm Neck ROM: Full Loose/Missing/Broken Teeth: Yes (#8 chipped, molars missed, crowned molars) Heart: RRR Lungs: CTAB Assessment and Plan Assessment Anesthesia Assessment: Anesthesia Plan Discussed and PAT Visit Final Anesthetic Review Family History of Problems with Anesthesia: No History of Problems with Anesthesia: No Documented by User: Savage Burrows MD 07/13/24 07:40 [facility] Past Medical History Medical History (Updated 07/04/24 @ 12:02 by Anna Marie Herrera RN) Family history of anesthesia complication Arthritis History of cardioversion Atrial fibrillation Asthma HTN (hypertension) Elevated cholesterol Diabetes Sciatica Sleep apnea Shoulder pain with history of repair of rotator cuff Family History Family History Father Heart disease HTN (hypertension) Mother Atrial fibrillation Sister Diabetes Surgical History Surgical History (Updated 07/04/24 @ 11:57 by Anna Marie Herrera RN) H/O colonoscopy History of surgical removal of ganglion cyst Hx of rotator cuff surgery History of cardiac cath Hx of elbow surgery History of carpal tunnel release Hx of eye surgery Hx of tonsillectomy Hx of hernia repair Hx of knee surgery Social History Social History Household Members: Spouse Are you a primary restorative care technician to a significant other at home: No Do you presently have visiting nurse or other home services: No Alcohol intake: current Alcohol intake frequency: does not drink Patient Tobacco Use Status: Never used Tobacco Use of substances other than those prescribed or required for medical reasons: Yes Substance Use Type: Marijuana Substance Use Type Other:: edibles Substance Use Frequency: Daily Have you been hit, kicked, punched, or otherwise hurt by someone within the past year? If so, by whom?: No Spiritual Healthcare Practices: none Adventism Healthcare Practices: none Cultural Healthcare Practices: none Are you DNR?: No Advance Directives Information Provided: Yes (as above noted) Advance Directives on File: No Recently lost weight without trying: No Eating poorly because of decreased appetite: No Nutrition Risks: No Nutritional Risk Poor oral hygiene: No (upper right front chipped tooth / uses production lead for jaw clenching) Current 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 status: retired Meds Allergies Allergy/AdvReac Type Severity Reaction Status Date / Time iron Allergy Severe Rash ( Verified 07/07/24 15:24 from oral supplement) Home Medications ?Medication ?Instructions ?Recorded ?Confirmed ?Last Taken ?Type atorvastatin 40 mg tablet 40 mg PO BEDTIME 02/20/22 07/13/24 02/23/22 History cholecalciferol (vitamin D3) 25 25 mcg PO QAM 02/20/22 07/13/24 04/10/23 08:00 History mcg (1,000 unit) capsule cyanocobalamin (vitamin B-12) 1,000 mcg PO QAM 02/20/22 07/13/24 04/10/23 08:00 History 1,000 mcg tablet (Vitamin B-12) empagliflozin 25 mg tablet 25 mg PO QAM 06/06/0507/13/24 07/10/24 History (Jardiance) lisinopril 10 mg tablet 10 mg PO QAM 02/20/22 07/13/24 04/10/23 08:00 History montelukast 10 mg tablet 10 mg PO BEDTIME 02/20/22 07/13/24 02/23/22 History albuterol sulfate 90 mcg/actuation 1 - 2 inh inhalation Q4-6H PRN 02/24/22 07/13/24 Unknown History aerosol inhaler (Ventolin HFA) Shortness Of Breath acetaminophen 500 mg tablet 1,000 mg PO Q6H PRN Pain 04/24/22 07/13/24 Unknown History apixaban 5 mg tablet (Eliquis) 5 mg PO BID 04/24/22 07/13/24 06/30/24 History cetirizine 10 mg tablet 10 mg PO QAM 07/02/22 07/13/24 Unknown History tamsulosin 0.4 mg capsule 0.4 mg PO BEDTIME 06/07/24 07/13/24 Unknown History dulaglutide 0.75 mg/0.5 mL 1.5 mg subcut QWEEK 07/04/24 07/13/24 07/05/24 History subcutaneous pen injector (Trulicity) Exam Airway Mallampati Class: I Assessment and Plan Final Anesthetic Review NPO: Yes ASA Class: III Final Preanesthetic Review: No Changes in Pt Med Stat, Meds/Allgs Chart Reviewed, Consent Obtained/Reviewed and Anes Risks/Benef Reviewed Patient Risk: High Procedure Risk: Intermediate Assessment/Block/Sedation in SS: Assess/Block/Sedation-SS Anesthetic Plan Anesthetic Plan: GA, Regional Block and Agree w/ Assess. and Plan Disposition: Standard PACU
[2024-07-04 14:05] LABS: Hematocrit 46.1 % (42.0-52.0); Hemoglobin 15.1 g/dl (14.0-18.0); Mean Corpuscular HGB Conc 32.8 g/dl (31.0-36.0); Mean Corpuscular Hemoglobin 29.3 pg (27.0-33.0); Mean Corpuscular Volume 89.3 fL (80.0-98.0); Mean Platelet Volume 9.5 fL (9.4-12.4); Platelet Count 134 X10*3/uL (160-400); Red Blood Count 5.16 X10*6/uL (4.60-5.80); Red Cell Distribution Width 14.4 % (11.0-16.0); White Blood Count 5.7 X10*3/uL (4.8-10.8)
[2024-07-04 14:15] LABS: MRSA Nasal PCR NEGATIVE (Negative); SA Nasal PCR POSITIVE (Negative)
[2024-07-04 14:33] LABS: Estimated Average Glucose 140 mg/dL; Hemoglobin A1c % 6.5 % (<6.0); Total Hemoglobin (HGBA1C) 3838.2387 umol/L
[2024-07-04 14:50] LABS: Anion Gap 10 (12-20); Blood Urea Nitrogen 12 mg/dL (9-16); Calcium 9.2 mg/dL (8.4-10.2); Carbon Dioxide 24 mmol/L (22-29); Chloride 107 mmol/L (96-108); Creatinine Clr Calc Pharmacy 108.5; Estimated Glomerular Filt Rate > 60; Glucose Random 129 mg/dL (60-115); Potassium 4.3 mmol/L (3.3-5.1); Sodium 137 mmol/L (135-145)
[2024-07-13] VITALS (11 sets, daily range): BP systolic 116–161; BP diastolic 55–77; PULSE 73–100; RESP 16–20; TEMP 36.1–36.5; O2SAT 96–98; BMI 45.4; BMI 45.6
[2024-07-13] MEDS: Lactated Ringers 1,000 ML 100 ML IVCONT ×3 (07:09→23:48)
--- NOTE | 2024-07-13 07:27 | MHC.SHP ---
Pre-Procedural Eval Section A - 24 Hr Update-Section A only Date of Service: 07/13/24 The patient is an INPATIENT: No Changes since office visit: No Cold of Flu in the past 2 weeks, No New Medical Problems, No Changes in Medication and No Patient answered all questions The patient has been examined within 24 hours of the surgical procedure. The History & Physical has been completed within 30 days and I have reviewed it.: Yes Section B - Complete if H&P > 30 days Chief Complaint: LTSA Allergies: Allergies Allergy/AdvReac Type Severity Reaction Status Date / Time iron Allergy Severe Rash ( Verified 07/07/24 15:24 from oral supplement) Plan I have reviewed the history and physical and performed a pertinent physical examination on my patient. No changes have occurred unless specified. Time Spent With Patient Time: Total time managing care of this patient today ____ minutes.
[2024-07-13 09:53] LABS: Glucose, Whole Blood 142 mg/dL (60-115)
--- NOTE | 2024-07-13 11:40 | PM.OP ---
Brief Operative Note Date of Service: 07/13/24 Pre-op diagnosis: Left shoulder OA Post-op diagnosis: same Procedure: Left TSA Implants: Tournier pegged and cemented glenoid Tournier 11/04 Ana Surgeon: Jon Meza MD Anesthesia: GETA and regional Was an [facility] used for this Procedure?: Yes [facility]: Graciela Alcaraz Estimated blood loss (mL): 300 IV fluids (mL): 1,500 Pathology: other Condition: stable Disposition: PACU
[2024-07-13] MEDS: oxyCODONE HCl Immed Release 5 MG TABLET PO (12:13)
--- NOTE | 2024-07-13 12:38 | HO.PM.IMCN ---
History of Present Illness Data of Consult Service Date: 07/13/24 Requesting physician: Graciela Alcaraz Primary Care Provider: Corey Carcamo MD HPI Reason for consult: medical consult Patient is a 69-year-old male with a past medical history significant for paroxysmal AFib on Eliquis and metoprolol, type 2 diabetes, hypertension, BPH, PAD, HLD, CAD, LILLY on CPAP, obesity and mild intermittent asthma, consulted status post left shoulder replacement today. Still some numbness and tingling in the L arm, and complaining of L shoulder pain. No chest pain, nausea, vomiting, shortness of breath, dizziness or confusion. Has not urinated yet or had to urge to. Last BM yesterday. Review of Systems Constitutional: Constitutional: Denies body ache(s), Denies chills, Denies fatigue, Denies fever(s) and Denies headache(s) Eyes: Eyes: Denies blurry vision and Denies change in vision ENT: Denies dizziness and Denies headache(s) Cardiovascular: Cardiovascular: Denies chest pain, Denies rapid heart rate, Denies lightheadedness and Denies dyspnea Respiratory: Respiratory: Denies cough and Denies dyspnea Gastrointestinal: Gastrointestinal: Denies constipation, Denies diarrhea, Denies nausea and Denies vomiting Genitourinary: Comments: has not urinated yet Musculoskeletal: Musculoskeletal: Reports as per HPI Integumentary/Breasts: Skin/Breast: Denies rash Neurologic: Denies confusion, Denies dizziness, Denies headache(s) and Denies memory loss Psychiatric: Psychiatric: Denies confusion and Denies memory loss Endocrine: Endocrine: Denies fatigue COUNTS INCLUDE 234 BEDS AT THE [facility] Medical History (Updated 07/04/24 @ 12:02 by Anna Marie Herrera RN) Family history of anesthesia complication Arthritis History of cardioversion Atrial fibrillation Asthma HTN (hypertension) Elevated cholesterol Diabetes Sciatica Sleep apnea Shoulder pain with history of repair of rotator cuff Functional capacity: independent ambulation Family History Father Heart disease HTN (hypertension) Mother Atrial fibrillation Sister Diabetes Surgical History (Updated 07/13/24 @ 12:40 by Zayra Jimenez PA-C) H/O colonoscopy History of surgical removal of ganglion cyst Hx of rotator cuff surgery History of cardiac cath Hx of elbow surgery History of carpal tunnel release Hx of eye surgery Hx of tonsillectomy Hx of hernia repair Hx of knee surgery Social History Household Members: Spouse Housing: House Are you a primary body care manager to a significant other at home: No Do you presently have visiting nurse or other home services: No Alcohol intake: current Alcohol intake frequency: does not drink Patient Tobacco Use Status: Never used Tobacco Substance Use Type: Marijuana Current 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 status: 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 Allergy/AdvReac Type Severity Reaction Status Date / Time iron Allergy Severe Rash ( Verified 07/07/24 15:24 from oral supplement) Active Medications: Current Medications Acetaminophen (Acetaminophen 325 Mg Tablet) 650 mg PO Q6H PRN PRN Reason: Pain, Mild (Pain Scale 1-3), fever or headache Albuterol Sulfate (Albuterol Sulfate 90 Mcg 8 Gm Inhaler) 1 - 2 puff INHALE Q4H PRN PRN Reason: Shortness Of Breath Atorvastatin Calcium (Atorvastatin Calcium 40 Mg Tablet) 40 mg PO BEDTIME [facility]HE[facility] Celecoxib (Celecoxib 200 Mg Capsule) 200 mg PO BID [facility] Cyanocobalamin (Cyanocobalamin (Vitamin B-12) 1,000 Mcg Tablet) 1,000 mcg PO DAILY [facility] Empagliflozin (Empagliflozin 25 Mg Tablet) 25 mg PO DAILY [facility] Enoxaparin Sodium (Enoxaparin Sodium 40 Mg/0.4 Ml Syringe) 40 mg SUBCUT Q24H [facility] Hydromorphone HCl (Hydromorphone Hcl 0.5 Mg/0.5 Ml Syringe) 0.25 mg IVPUSH Q4H PRN; Protocol PRN Reason: Pain, Severe (Pain Scale 7-10) Lactated Ringer's (Lr) 1,000 mls @ 100 mls/hr IVCONT .Q10H FAHEEM Last Admin: 07/13/24 07:09 Dose: 100 mls/hr Lactated Ringer's (Lr) 1,000 mls @ 100 mls/hr IVCONT .Q10H [facility] Cefazolin Sodium/Dextrose (Ancef) 2 gm in 50 mls @ 100 mls/hr IV POSTOP ONE Stop: 07/13/24 14:29 Lisinopril (Lisinopril 10 Mg Tablet) 10 mg PO DAILY [facility]; Protocol Loratadine (Loratadine 10 Mg Tablet) 10 mg PO DAILY [facility] Magnesium Hydroxide (Milk Of Magnesia 30 Ml Oral.Susp) 30 ml PO DAILY PRN PRN Reason: Constipation Melatonin (Melatonin 3 Mg Tablet) 6 mg PO BEDTIME PRN PRN Reason: Insomnia Metoprolol Tartrate (Metoprolol Tartrate 25 Mg Tablet) 25 mg PO BID [facility]; Protocol Montelukast Sodium (Montelukast Sodium 10 Mg Tablet) 10 mg PO BEDTIME [facility] Non-Formulary Medication (Dulaglutide [Trulicity]) 1.5 mg SUBCUT QWEEK [facility] Ondansetron HCl (Ondansetron Hcl 4 Mg/2 Ml Vial) 4 mg IVPUSH Q8H PRN PRN Reason: Nausea and Vomiting Oxycodone HCl (Oxycodone Hcl Immed Release 5 Mg Tablet) 5 mg PO Q4H PRN PRN Reason: Pain, Moderate(Pain Scale 4-6) Last Admin: 07/13/24 12:13 Dose: 5 mg Oxycodone HCl (Oxycodone Hcl Er 10 Mg Tab.Er.12h) 10 mg PO BID [facility] Senna (Sennosides 8.6 Mg Tablet) 17.2 mg PO BEDTIME [facility] Sodium Chloride (0.9 % Sodium Chloride Flush 3 Ml Syringe) 3 ml IVFLUSH QSHIFT [facility] Tamsulosin HCl (Tamsulosin Hcl 0.4 Mg Capsule) 0.4 mg PO BEDTIME [facility] Vitamin D (Cholecalciferol (Vitamin D3) 25 Mcg Tablet) 25 mcg PO DAILY [facility] Home Medications ?Medication ?Instructions ?Recorded ?Confirmed ?Last Taken ?Type atorvastatin 40 mg tablet 40 mg PO BEDTIME 02/20/22 07/13/24 02/23/22 History cholecalciferol (vitamin D3) 25 25 mcg PO DAILY 02/20/22 07/13/24 04/10/23 08:00 History mcg (1,000 unit) capsule cyanocobalamin (vitamin B-12) 1,000 mcg PO DAILY 02/20/22 07/13/24 04/10/23 08:00 History 1,000 mcg tablet (Vitamin B-12) empagliflozin 25 mg tablet 25 mg PO DAILY 02/20/22 07/13/24 07/10/24 History (Jardiance) lisinopril 10 mg tablet 10 mg PO DAILY 02/20/22 07/13/24 04/10/23 08:00 History montelukast 10 mg tablet 10 mg PO BEDTIME 02/20/22 07/13/24 02/23/22 History albuterol sulfate 90 mcg/actuation 1 - 2 inh inhalation Q4-6H PRN 02/24/22 07/13/24 Unknown History aerosol inhaler (Ventolin HFA) Shortness Of Breath acetaminophen 500 mg tablet 1,000 mg PO Q6H PRN Pain 04/24/22 07/13/24 Unknown History apixaban 5 mg tablet (Eliquis) 5 mg PO BID 04/24/22 07/13/24 06/30/24 History cetirizine 10 mg tablet 10 mg PO DAILY 07/02/22 07/13/24 Unknown History tamsulosin 0.4 mg capsule 0.4 mg PO BEDTIME 06/07/24 07/13/24 Unknown History dulaglutide 0.75 mg/0.5 mL 1.5 mg subcut WE 07/04/24 07/13/24 07/05/24 History subcutaneous pen injector (Trulicity) glipizide 5 mg tablet, extended 5 mg PO DAILY 07/13/24 Unknown History release 24 hr metformin 1,000 mg tablet 1,000 mg PO BIDWM 07/13/24 Unknown History Physical Exam Vital Signs and Narrative: Vital Signs: Last Vital Signs Temp 97 F 07/13/24 11:50 Pulse 73 07/13/24 12:20 Resp 18 07/13/24 12:20 BP 120/70 07/13/24 12:20 Pulse Ox 98 07/13/24 12:20 O2 Del Method Nasal Cannula 07/13/24 12:20 O2 Flow Rate 2 07/13/24 12:20 BMI result Body Mass Index 45.4 General: AOx3, no acute distress Resp: CTA bilaterally CVS: S1, S2, RRR. good capillary refill L nailbeds. GI: +BS, NT, no distention Skin: Warm, dry Neuro: Cranial nerves II-XII grossly intact bilaterally. Gross motor intact bilaterally. able to move fingers L hand Extremities: No edema Psych: Appropriate affect Const: General: No confusion Orientation/consciousness: No confusion Neuro: General: No confusion Results Labs 07/04/24 13:07 07/04/24 13:07 Labs: Laboratory Results - last 24 hr 07/13/24 06:39 POC Glucose 142 H Assessment and Plan (1) Status post total replacement of left shoulder: Status: Acute Plan Patient is a 69-year-old male with a past medical history significant for paroxysmal AFib on Eliquis and metoprolol, type 2 diabetes, hypertension, BPH, PAD, HLD, CAD, LILLY on CPAP, obesity and mild intermittent asthma, consulted status post left shoulder replacement today. S/p left TSA - plan per ortho - sent message re: pain Paroxysmal AFib - NSR currently - continue metoprolol - on Lovenox currently, likely resume eliquis tomorrow Type 2 diabetes - diabetic diet - sliding scale insulin - hold glipizide, metformin, Jardiance and Trulicity Hypertension - continue lisinopril and metoprolol as above HLD - continue atorvastatin q.h.s. BPH - continue tamsulosin q.h.s. LILLY - CPAP at night Mild intermittent asthma - no acute exacerbation - continue montelukast q.h.s. and albuterol p.r.n. Thank you for allowing me to participate in the pt's care. Signing off for now. Please contact the medical team if any questions or concerns.
[2024-07-13] MEDS: HYDROmorphone HCl 0.5 MG/0.5 ML SYRINGE 0.25 MG IVPUSH (13:52)
[2024-07-13] MEDS: Cholecalciferol (Vitamin D3) 25 MCG TABLET PO (13:53)
[2024-07-13] MEDS: lisinopriL 10 MG TABLET PO (13:53)
[2024-07-13] MEDS: Loratadine 10 MG TABLET PO (13:53)
[2024-07-13] MEDS: ceFAZolin Sodium/Dextrose,Iso 2 GM/50 ML PIGGYBACK IV (13:53)
[2024-07-13] MEDS: Cyanocobalamin (Vitamin B-12) 1,000 MCG TABLET 1000 MCG PO (13:53)
--- NOTE | 2024-07-13 14:53 | PHA.MEDREC ---
Addendum entered by Natasha Soni RPh 07/13/24 15:04: Reviewed by [facility] Original Note: Pharmacy Consult ? Medication Reconciliation Pharmacy has completed the medication reconciliation. Confirmed medications with patient and patient at bedside. Patient confirmed his medications, he stated he stopped his Eliquis 5mg tab BID on 07/10 and states he is going to be starting it when he gets home from here or unless stated other spencer from the DR. He confirmed his dose of his Trulicity 0.75mg injection he was doing it 0.75 mg once a week on Tuesdays but states he missed his dose last Thursday and went to take it Thursday and states his Dr. increased him last Thursday to 1.5mg once a week on Wednesdays now and states he was going to take it and start that dose today but because of the surgery he did not want to. He stated his doctor took him off Metformin 1000mg tabs and Glipizide 5mg tabs and prescribed him the Trulicity to see if that would help. He states he took his Albuterol and Metoprolol this morning, his Eliquis stopped the until he gets home and everything else he states he took yesterday.
--- NOTE | 2024-07-13 15:33 | PC.RT ---
Rt inspected pts home CPAP unit. The unit is in very good condition, clean and free of damage. A bottle of sterile H2O was provided.
[2024-07-13 16:27] LABS: Glucose, Whole Blood 259 mg/dL (60-115)
[2024-07-13] MEDS: Insulin Lispro 100 UNIT/ML 3 ML VIAL SUBCUT ×2 (16:47→21:23)
[2024-07-13] MEDS: oxyCODONE HCl Immed Release 5 MG TABLET 10 MG PO (17:41)
[2024-07-13 20:41] LABS: Glucose, Whole Blood 213 mg/dL (60-115)
[2024-07-13] MEDS: Sennosides 8.6 MG TABLET 17.2 MG PO (21:11)
[2024-07-13] MEDS: Montelukast Sodium 10 MG TABLET PO (21:12)
[2024-07-13] MEDS: Atorvastatin Calcium 40 MG TABLET PO (21:12)
[2024-07-13] MEDS: Metoprolol Tartrate 25 MG TABLET PO (21:12)
[2024-07-13] MEDS: Tamsulosin HCL 0.4 MG CAPSULE PO (21:12)
[2024-07-13] MEDS: oxyCODONE HCl ER 10 MG TAB.ER.12H PO (21:13)
[2024-07-13] MEDS: Milk of Magnesia 30 ML ORAL.SUSP PO (21:24)
[2024-07-14] MEDS: oxyCODONE HCl Immed Release 5 MG TABLET 10 MG PO ×3 (02:32→11:40)
[2024-07-14 03:05] VITALS: BP 116/61; PULSE 71; RESP 18; TEMP 36.6; O2SAT 97
[2024-07-14 06:49] LABS: MANUAL DIFF FLAG NO
[2024-07-14 07:11] LABS: Anion Gap 15 (12-20); Basophils Percent Auto 0.1 % (0-2); Blood Urea Nitrogen 17 mg/dL (9-16); Calcium 8.5 mg/dL (8.4-10.2); Carbon Dioxide 20 mmol/L (22-29); Chloride 104 mmol/L (96-108); Creatinine Clr Calc Pharmacy 115.6; Eosinophils Percent Auto 0.1 % (0-4); Estimated Glomerular Filt Rate > 60; Glucose Fasting 197 mg/dL (60-99); Hematocrit 38.1 % (42.0-52.0); Hemoglobin 12.6 g/dl (14.0-18.0); Imm Gran Abs Auto 0.05 X10*3/uL (0.00-0.03); Imm Gran Pct Auto 0.5 % (0.0-0.4); Lymphocytes Absolute Auto 1.1 X10*3/uL (1.2-4.9); Lymphocytes Percent Auto 11.5 % (20-40); Mean Corpuscular HGB Conc 33.1 g/dl (31.0-36.0); Mean Corpuscular Hemoglobin 29.6 pg (27.0-33.0); Mean Corpuscular Volume 89.4 fL (80.0-98.0); Mean Platelet Volume 9.6 fL (9.4-12.4); Neutrophils Absolute Auto 7.2 x10*3/uL (2.0-8.3); Neutrophils Percent Auto 76.8 % (45-73); Platelet Count 145 X10*3/uL (160-400); Potassium 4.3 mmol/L (3.3-5.1); Red Blood Count 4.26 X10*6/uL (4.60-5.80); Red Cell Distribution Width 14.2 % (11.0-16.0); Sodium 135 mmol/L (135-145); White Blood Count 9.4 X10*3/uL (4.8-10.8)
[2024-07-14 07:18] LABS: Glucose, Whole Blood 225 mg/dL (60-115)
[2024-07-14 07:50] VITALS: BP 121/62; PULSE 76; RESP 18; TEMP 36.7; O2SAT 94
[2024-07-14] MEDS: Insulin Lispro 100 UNIT/ML 3 ML VIAL SUBCUT ×2 (08:12→11:37)
[2024-07-14] MEDS: Cyanocobalamin (Vitamin B-12) 1,000 MCG TABLET 1000 MCG PO (08:15)
[2024-07-14] MEDS: Loratadine 10 MG TABLET PO (08:15)
[2024-07-14] MEDS: Celecoxib 200 MG CAPSULE PO (08:15)
[2024-07-14] MEDS: Metoprolol Tartrate 25 MG TABLET PO (08:15)
[2024-07-14] MEDS: oxyCODONE HCl ER 10 MG TAB.ER.12H PO (08:16)
[2024-07-14] MEDS: lisinopriL 10 MG TABLET PO (08:16)
[2024-07-14] MEDS: Cholecalciferol (Vitamin D3) 25 MCG TABLET PO (08:16)
--- NOTE | 2024-07-14 08:22 | HO.POSTANES ---
Post Anesthesia Evaluation Post Anesthesia Evaluation Date of Service: 07/14/24 Vital Signs: Vital Signs Temp Pulse Resp BP Pulse Ox O2 Del Method 07/14/24 07:50 76 18 121/62 94 Room Air 07/14/24 03:05 97.8 F 71 18 116/61 97 CPAP 07/13/24 21:12 100 131/69 Anesthesia: General Endotracheal-GETA Mental Status: Awake Pain Control: Satisfactory Nausea/Vomiting: None Hydration: Adequate Anesthesia-Related Issues: No Anes. Related Issues
--- NOTE | 2024-07-14 09:30 | P.DS_ITS ---
DS: Providers Provider Date of Service: 07/14/24 Primary care physician: Corey Carcamo MD Consults: 07/13/24 12:08 Consult to Hospitalist Routine Comment: Consulting Provider: Hospitalist Reason For Exam: a. fib routine medical management DS: Diagnosis Discharge Diagnosis (1) Status post total replacement of left shoulder: Status: Acute DS: Summary Hospital Course Hospital Course: The patient underwent a successful left total shoulder arthroplasty on 07/13/29, was transferred to PACU and then to the floor to recover. During their stay, their vitals were stable, afebrile at 98.0. Labs were unremarkable, H/H12.6/38.1 . POD 1 he was started on lovenox for DVT ppx, they also received Ot services daily. OT: * Wear sling at all times unless for hygiene and exercises * Pendelums three times a day * Physical Therapy/ Occupation therapy * ---No FF beyond 90, No ER/IR beyond neutral, no Abduction beyond 90 degrees * --no pushing off with left arm * ---No heavy lifting * ---Elbow and wrist ROM ok Prior to discharge, dressing clean dry and intact. The Aquacel dressing should remain intact and dry at all times. Any concerns with the dressing, please con tact orthopedic office. No showering. The plan is to be discharged Time Attestation Discharge Coordination Time (in mins): 30 Quality: Safe Use of Opioids Does Pt have an Active Cancer Diagnosis on the Problem List?: No Quality: Stroke Does the patient have a stroke diagnosis?: No Physical Exam Vital Signs: Vital Signs: Last Vital Signs Temp 98.0 F 07/14/24 07:50 Pulse 76 07/14/24 07:50 Resp 18 07/14/24 07:50 BP 121/62 07/14/24 07:50 Pulse Ox 94 07/14/24 07:50 O2 Del Method Room Air 07/14/24 07:50 O2 Flow Rate 2 07/13/24 15:17 BMI result Body Mass Index 45.6 DS: Data Data Completed and Pending Pending studies at discharge: Pending at discharge 07/13/24 11:04 Surgical [PTH] Routine Labs on day of discharge: Laboratory Results - last 24 hr 07/13/24 07/13/24 07/13/24 06:39 16:23 20:38 WBC RBC Hgb Hct MCV MCH MCHC RDW Plt Count MPV Immature Gran % (Auto) Neut % (Auto) Lymph % (Auto) [place] % (Auto) Eos % (Auto) Baso % (Auto) Lymph # (Auto) [place] # (Auto) Eos # (Auto) Baso # (Auto) Abs Immat Gran (auto) Absolute Neuts (auto) Absolute Nucleated RBC Nucleated RBC % (auto) Sodium Potassium Chloride Carbon Dioxide Anion Gap BUN Creatinine Estim Creat Clear Calc Estimated GFR POC Glucose 142 H 259 H 213 H Fasting Glucose Calcium 07/14/24 07/14/24 06:42 07:05 WBC 9.4 RBC 4.26 L Hgb 12.6 L Hct 38.1 L MCV 89.4 MCH 29.6 MCHC 33.1 RDW 14.2 Plt Count 145 L MPV 9.6 Immature Gran % (Auto) 0.5 H Neut % (Auto) 76.8 H Lymph % (Auto) 11.5 L [place] % (Auto) 11.0 Eos % (Auto) 0.1 Baso % (Auto) 0.1 Lymph # (Auto) 1.1 L [place] # (Auto) 1.0 Eos # (Auto) 0.0 Baso # (Auto) 0.0 Abs Immat Gran (auto) 0.05 H Absolute Neuts (auto) 7.2 Absolute Nucleated RBC 0.000 Nucleated RBC % (auto) 0.0 Sodium 135 Potassium 4.3 Chloride 104 Carbon Dioxide 20 L Anion Gap 15 BUN 17 H Creatinine 0.80 Estim Creat Clear Calc 115.6 Estimated GFR > 60 POC Glucose 225 H Fasting Glucose 197 H Calcium 8.5 D Discharge Plan Discharge Referrals: [facility] [Outside] - 3-5 Days ([facility] will call you to schedule services) Graciela Alcaraz PA-C [Physician Forest Supervisor] - 2 Weeks (07/28/24 12:30 [facility] Graciela Alcaraz PA-C) Discharge Medications: New sennosides [Senna Lax] 8.6 mg Tablet 17.2 mg PO BEDTIME 14 Days Qty: 28 0RF oxycodone 10 mg tablet 10 mg PO Q4H PRN (Reason: Pain, Moderate(Pain Scale 4-6)) 7 Days Qty: 42 0RF Rx Instructions: Partial Fill upon patient request. acetaminophen 325 mg Tablet 650 mg PO Q6H PRN (Reason: Pain, Mild (Pain Scale 1-3), fever or headache) 30 Days Qty: 240 0RF Continued metoprolol tartrate 25 mg tablet 25 mg PO BID Qty: 180 3RF albuterol sulfate [Ventolin HFA] 90 mcg/actuation HFA aerosol inhaler 1 - 2 inh inhalation Q4-6H PRN (Reason: Shortness Of Breath) Trulicity 0.75 mg/0.5 mL pen injector 0.75 mg subcut TU atorvastatin 40 mg tablet 40 mg PO DAILY Jardiance 25 mg tablet 25 mg PO DAILY lisinopril 10 mg tablet 10 mg PO DAILY montelukast 10 mg tablet 10 mg PO BEDTIME cyanocobalamin (vitamin B-12) [Vitamin B-12] 1,000 mcg tablet 1,000 mcg PO DAILY cholecalciferol (vitamin D3) 25 mcg (1,000 unit) capsule 25 mcg PO DAILY Eliquis 5 mg tablet 5 mg PO BID cetirizine 10 mg tablet 10 mg PO DAILY tamsulosin 0.4 mg capsule 0.4 mg PO BEDTIME Discontinued acetaminophen 500 mg tablet 1,000 mg PO Q6H PRN (Reason: Pain) Discharge Orders: Discharge Order (Routine); Ordered 07/14/24 Ordered By: Fernanda Alonso Diet: Regular diet Activity on Discharge: Use cane or walker Activity Restrictions/Additional Instructions: * Wear sling at all times unless for hygiene and exercises * Pendelums three times a day * Physical Therapy/ Occupation therapy * ---No FF beyond 90 degrees, No ER/IR beyond neutral- no Abduction beyond 90 degrees * ---avoid pushing off with arm * ---No heavy lifting * ---Elbow and wrist ROM ok * Resume eliquis on DC * Follow up with orthopedics in 2 weeks Print Language: Tristanian
--- NOTE | 2024-07-14 09:44 | MHC.CM.PN ---
Patient lives in home w/ . Functionally independent. Has CPAP, supplies via [facility]. PCP Corey Carcamo MD Reports he has an HCP, w/ Pat listed at [facility]. Copy requested. DP: Medically cleared for dc. OT recommends home w/ services. [facility] has accepted. to transport.
--- NOTE | 2024-07-14 09:57 | W.MHC.F2F ---
Service Date Service Date: 07/14/24 Encounter Date of encounter: 07/14/24 Reasons for Services Signs and symptoms assessed: Weakness, poor balance, poor gait mechanics Reason for 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 therapy: home safety and mobility, therapeutic exercises, restore joint function, gait/transfer training, ADL training and energy conservation Homebound: Leaving the home is medically contraindicated at this time without the asist of a device and/or another person due th the listed conditions above and below. Reason homebound: unsteady gait / fall risk, poor balance / fall risk and unable to drive Homebound supporting statement: Pt. is considered home bound due to recent surgery. Unable to drive, poor balance, poor gait mechanics. Certification: Based on the above findings, I certify that this patient is confined to the home and needs intermittent snf care, physical therapy and/or speech therapy, or continues to need 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 therapy. The patient is under my care, and I have initiated the establishment of the plan of care. The patient will be followed by a physician who will periodically review the plan of care. Time Spent With Patient Time: Total time managing care of this patient today ____ minutes.
[2024-07-14 11:37] LABS: Glucose, Whole Blood 220 mg/dL (60-115)
--- NOTE | 2024-07-15 16:41 | W.PM.OPN ---
Operative Note Operative Note Date of Service: 07/13/24 Narrative: Date of Service: 07/13/24 Pre-op diagnosis: Left shoulder OA Post-op diagnosis: same Procedure: Left TSA Implants: Tournier pegged and cemented glenoid Tournier 11/04 Ana Surgeon: Jon Meza MD Anesthesia: GETA and regional Was an Target Aircraft Technician used for this Procedure?: Yes Target Aircraft Technician: Graciela Alcaraz Estimated blood loss (mL): 300 IV fluids (mL): 1,500 Pathology: other Condition: stable Disposition: PACU Procedure in detail: Patient was brought to the operating room and placed in the beach chair position on the surgical table. The limb was prepped and draped in standard sterile fashion and a time out was called to identify proper site, proper procedure and IV antibiotics per weight were administered. I began by making a deltopectoral incision from the coracoid to the pectoralis insertion.? Blunt dissection identified the cephalic vein which was retracted laterally.? Blunt dissection was taken down to the 3 sisters which were cauterized.? I then made a full-thickness capsulotomy including the subscapularis. A 1 cm cuff was left for repair.? This was then tagged and the arm was externally rotated and extended and the head was partially dislocated.? There was extensive osteophytes and careful dissection was taken under the inferior portion of the humeral head and posteriorly where the osteophytes were meticulously removed with a combination of curette and curved osteotome. This took some time but I was eventually able to dislocate the head. The biceps was tenotomized. Once dislocated a head cut was made in the patient's natural alignment along the anatomic neck. The humeral head was eburnated. The RTC was intact. An anatomic head cut was made in patient's natural inclination (approximately 132 degree) .? A starter awl was used to identify the canal and then I drilled my central peg over a guidewire and then punched and placed my head protector..? I then turned my attention to the glenoid.? Posterior anterior and superior glenoid retractors were placed and the labrum was removed with a 15 blade. The glenoid was flattened with osteophytes that were again removed mostly posteriorly and anteriorly with a osteotome. Once once this was done and, based on the preoperative CT and templating, a guide pin was placed in approximately 15 degrees of retroversion and neutral inclination.? I was unable to get the wedge Reamer in because of the lack of space given the patient's body habitus in the severity of his osteoarthritis. I used a curette to debride the bone down to bleeding bone and there was a flat surface. I then placed my center 40M glenoid drill guide. I over-drilled this and then drilled my superior and 2 inferior lug holes. One bag of Palacos bone cement was mixed on the back table and My final glenoid was cemented in place while applying axial compression. Once the cement was dry all excess cement was removed. I then returned to the humerus where I trialed simpliciti size 2 with a HH measuring 48x18. I was satisfied with the height and the stability. I irrigated copiously and then implanted in the final implants. I was satisfied with the stability of the implants. I then irrigated and repaired the subscapularis with fiberwire.? The subscapularis was tenuous and, given the severity of his arthritis in the extensive osteophytosis I elected to place a Regeneten collagen bio inductive implant over the subscapularis repair site. Bone anchor was used laterally and it was sutured to the subscapularis medially with Vicryl suture. I closed in a layered fashion with absorbable suture and rachel and the patient was placed in a sterile dressing and an abduction sling.? She was extubated brought to recovery room stable condition there were no known complications.
== END 2024-07-14 12:03 | disposition home health service (06) ==
LOC: HO.SSS 06:52 → HO.S3 11:56
PROVIDERS: Nurse Practitioner; Orthopaedic Surgery; PCP Internal Medicine; Visit Provider Physician Assistant
PROC: (CPT 23472; principal; 2024-07-13 07:30)
DX: M19.012 Primary osteoarthritis, left shoulder (principal); Z96.612 Presence of left artificial shoulder joint; R26.81 Unsteadiness on feet; R53.1 Weakness; I48.91 Unspecified atrial fibrillation; I25.10 Atherosclerotic heart disease of native coronary artery without angina pectoris; I10 Essential (primary) hypertension; E11.9 Type 2 diabetes mellitus without complications; J45.20 Mild intermittent asthma, uncomplicated; G47.33 Obstructive sleep apnea (adult) (pediatric); E66.9 Obesity, unspecified; Z68.42 Body mass index [BMI] 45.0-49.9, adult; Z79.01 Long term (current) use of anticoagulants; Z79.84 Long term (current) use of oral hypoglycemic drugs; Z79.85 Long-term (current) use of injectable non-insulin antidiabetic drugs; Z79.899 Other long term (current) drug therapy; Z99.89 Dependence on other enabling machines and devices; Z98.890 Other specified postprocedural states
CPT/HCPCS: 23472; 36415; 80048; 82947; 83036; 85025; 85027; 86850; 86900; 86901; 87640; 87641; 88304; 88311; 97166; C1713; C1763; C1776; J0131; J0665; J0690; J1100; J1171; J2003; J2704; J3010; J7120

== ENCOUNTER → 2024-07-13 06:24 | Outpatient (BNV) | payer MEDICARE, SELFPAY | PROVIDERS: PCP Internal Medicine; Visit Provider Orthopaedic Surgery | DX: Z47.1 Aftercare following joint replacement surgery (principal); Z96.612 Presence of left artificial shoulder joint | CPT/HCPCS: 23472; 99024; G0180 ==

== ENCOUNTER → 2024-07-13 06:24 | Outpatient (BNV) | payer MEDICARE, SELFPAY | PROVIDERS: PCP Internal Medicine; Visit Provider Physician Assistant | DX: M25.512 Pain in left shoulder (principal); Z96.612 Presence of left artificial shoulder joint; R20.2 Paresthesia of skin | CPT/HCPCS: 99223 ==

== ENCOUNTER 2024-07-28 12:30 | Outpatient (AMB) | payer MEDICARE, SELFPAY ==
--- NOTE | 2024-07-28 12:37 | MHC.OFFVIS ---
Intake Visit Reasons: 2 WK PO: L TSA w/NE 07/13/24 Intake Note: Olive is a 69 year old male who presents today for a post op appointment s/p Left TSA 07/13/24 NE. Patient reports he is still having pain and discomfort on the area. He mentions that his left leg started to get numb and his right thumb started to cause him pain. Allergies iron Allergy (Severe, Verified 07/28/24 12:52) Rash ( from oral supplement) HPI HPI 2 WK PO: L TSA w/NE 07/13/24: Details: 69-year-old right hand dominant male who presents in the office today 15 days status post left shoulder arthroplasty which was performed on 07/13/[address] Meza. While in the office today, the patient reports persisting pain and discomfort in the area. He presents to the office today in his sling. He has concerns about refilling his pain medication. He reports he has needed to take it roughly every 3 hours for pain. [facility] Medical History (Updated 07/15/24 @ 00:02 by Background Montrell) Family history of anesthesia complication Arthritis History of cardioversion Atrial fibrillation Asthma HTN (hypertension) Elevated cholesterol Diabetes Sciatica Sleep apnea Shoulder pain with history of repair of rotator cuff Surgical History (Updated 07/15/24 @ 00:02 by Background Daemon) H/O colonoscopy History of surgical removal of ganglion cyst Hx of rotator cuff surgery History of cardiac cath Hx of elbow surgery History of carpal tunnel release Hx of eye surgery Hx of tonsillectomy Hx of hernia repair Hx of knee surgery Family History Father Heart disease HTN (hypertension) Mother Atrial fibrillation Sister Diabetes Social History Household Members: Spouse Housing: House Are you a primary complex care nurse to a significant other at home: No Do you presently have visiting nurse or other home services: No Alcohol intake: current Alcohol intake frequency: does not drink Patient Tobacco Use Status: Never used Tobacco Substance Use Type: Marijuana service: No Current 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 status: retired Review of Systems Const All systems reviewed & are unremarkable except as noted in HPI and below Physical Exam Const General: cooperative, healthy appearing and no acute distress Resp Effort & Inspection: normal respiratory effort and able to speak in complete sentences Cardio Rate: regular rate Peripheral pulses: Peripheral pulses 2+ throughout GI Palpation (GI): Soft to palpation Skin Lesions: no lesions Rashes: no rashes Extrem Other: Left shoulder: Incision site is clean, dry, and intact. [place] are intact. No surrounding erythema or drainage. No signs of infection. Left hand: Normal to inspection. No ecchymosis, erythema, or edema. Able to perform full finger flexion, extension, abduction, adduction, finger cross, okay sign, and thumbs up without deficit. Able to make a closed fist. Sensation intact. Capillary refill is brisk. Radial pulse intact. Assessment & Plan Assessment & Plan (1) Status post total replacement of left shoulder: Code(s): Z96.612 - Presence of left artificial shoulder joint Category: Surgical Plan Mr. Tobias is a 69-year-old right hand dominant male who presents in the office today 15 days status post left shoulder arthroplasty, which was performed on 07/13/[address] Meza. While in the office today, the patient reports persisting pain and discomfort in the area. He presents to the office today in his sling. He has concerns about refilling his pain medication. He reports he has needed to take it roughly every 3 hours for pain. [place] were removed and steri-strips were applied. He will remain in the sling at all times until follow up. He will transition to outpatient physical therapy at this time and I have placed a referral to PT today. He was provided a refill for oxycodone and weaned the dose to 5 mg Q4H PRN for pain. Follow-up will be with Dr. Meza in 4 weeks, or sooner if needed. Orders: Orders PT Evaluation and Treatment Today Z96.612 - Presence of left artificial shoulder joint Patient Instructions: Scribed by Dara Pasc[facility] healthcare or medical, for Graciela Alcaraz PA-C on 07/28/24 at 12:50 pm EST. Coding Level of Care Code Global (09842) Diagnoses Status post total replacement of left shoulder Z96.612
== END 2024-07-28 13:15 | disposition home or self-care (01) ==
PROVIDERS: PCP Internal Medicine; Visit Provider Physician Assistant
DX: Z96.612 Presence of left artificial shoulder joint (principal)
CPT/HCPCS: 99024

== ENCOUNTER → 2024-07-28 12:30 | Outpatient (BNVA) | payer MEDICARE, SELFPAY | PROVIDERS: PCP Internal Medicine; Visit Provider Physician Assistant | DX: Z96.612 Presence of left artificial shoulder joint (principal) | CPT/HCPCS: 99212 ==

== ENCOUNTER 2024-08-18 13:34 | Outpatient (REF) | payer MEDICARE, SELFPAY | END 2024-08-18 13:35 | disposition home or self-care (01) | LOC: HO.HOSX 13:34 | PROVIDERS: Visit Provider Orthopaedic Surgery | DX: M25.512 Pain in left shoulder (principal); Z96.612 Presence of left artificial shoulder joint | CPT/HCPCS: 73030; 99212 ==

== ENCOUNTER 2024-08-18 14:06 | Outpatient (AMB) | payer MEDICARE, SELFPAY ==
--- NOTE | 2024-08-18 14:23 | A.OFFVIS_ITS ---
Intake Visit Reasons: PO - L TSA w/NE 07/13/24 Intake Note: Olive is a 69 year old male who presents today for a post operative appointment s/p Left TSA 07/13/24. States he is attending P.T and is working on his ROM. He reports having mild aches especially after P.T. Allergies iron Allergy (Severe, Verified 08/18/24 14:28) Rash ( from oral supplement) HPI HPI PO - L TSA w/NE 07/13/24: Details: Olive is a 69 year old male who presents today for a post operative appointment s/p Left TSA 07/13/24. States he is attending P.T and is working on his ROM. He reports having mild aches especially after P.T. [facility] Medical History (Updated 07/15/24 @ 00:02 by Jarvis Stock) Family history of anesthesia complication Arthritis History of cardioversion Atrial fibrillation Asthma HTN (hypertension) Elevated cholesterol Diabetes Sciatica Sleep apnea Shoulder pain with history of repair of rotator cuff Surgical History H/O colonoscopy History of surgical removal of ganglion cyst Hx of rotator cuff surgery History of cardiac cath Hx of elbow surgery History of carpal tunnel release Hx of eye surgery Hx of tonsillectomy Hx of hernia repair Hx of knee surgery Family History Father Heart disease HTN (hypertension) Mother Atrial fibrillation Sister Diabetes Social History Household Members: Spouse Housing: House Are you a primary physician primary care sports medicine to a significant other at home: No Do you presently have visiting nurse or other home services: No Alcohol intake: current Alcohol intake frequency: does not drink Patient Tobacco Use Status: Never used Tobacco Substance Use Type: Marijuana service: No Current 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 status: retired Physical Exam Extrem Other: ER 15 degrees Active abduction to 75 degrees Passive abduction to 90 Results Reviewed Results Reviewed: I personally reviewed relevant radiographs. Left total shoulder arthroplasty in expected post operative position with no hardware complications or evidence of loosening Assessment & Plan Assessment & Plan (1) Status post total replacement of left shoulder: Code(s): Z96.612 - Presence of left artificial shoulder joint Category: Surgical Plan: Status post left shoulder replacement doing well. A little behind on PT. he already discontinued his sling has it was bothering him and he lost is home therapy instructions. He has an appointment PT tomorrow. I recommend he avoid lifting and slowly work on range of motion. Follow up 6 weeks Orders: Orders XR shoulder LT min 2V Today M25.519 - Pain in unspecified shoulder Coding Level of Care Code Global (58094) Diagnoses Status post total replacement of left shoulder Z96.612
== END 2024-08-18 15:45 | disposition home or self-care (01) ==
PROVIDERS: PCP Internal Medicine; Visit Provider Orthopaedic Surgery
DX: Z96.612 Presence of left artificial shoulder joint (principal)
CPT/HCPCS: 99024

== ENCOUNTER 2024-09-19 08:22 | Outpatient (AMB) | payer MEDICARE, SELFPAY ==
[2024-09-19 08:30] VITALS: BP 134/64; PULSE 76; O2SAT 97; BMI 44.8
--- NOTE | 2024-09-19 08:30 | A.OFFVIS_ITS ---
Vital Signs 09/19/24 08:30 Height 5 ft 7 in Weight 286 lb 2.56 oz BMI 44.8 BP 134/64 Blood Pressure Location Rt brachial Position Sitting Pulse 76 Pulse Source Pulse Oximeter Pulse Oximetry (%) 97 Oxygen Delivery Method Room Air Intake Visit Reasons: hemorrhoids/Suzan pt Intake Note: ESTABLISHED PATIENT Reason; scheduled in office FUV re-est. Prev seen JM Changes/concerns? Pt is concerned about side effects of eliquis on their GI system. Pt states that he has also cut back on alcohol over the last few months which has been helping. Allergies iron Allergy (Severe, Verified 09/19/24 08:36) Rash ( from oral supplement) HPI HPI hemorrhoids/Szuan pt: Details: LAST VISIT WITH MATIAS HUI 04/29/2023 A 67 y/o a f/u after recent colonoscopy-that had been postponed due AFIB- he has finally been able to get it done- He has intermittent loose stool-metformin He is taking eliquis with good response- Good appetite- He does drink vodka- most days- TODAY'S VISIT: Patient continues to occasionally have loose stools. However patient does reports that currently the symptoms subsided. He stopped drinking few months ago and no longer is taking metformin. Patient right now is taking Trulicity to control his blood sugars and he is feeling better. Patient denies melena, hematochezia, unintentional weight loss or ribbon like stools. Patient denies dyspepsia, dysphagia or odynophagia. Patient had colonoscopy in March of 2023, normal colon, colonoscopy can be repeated in 10 years. Patient eats fruits and vegetables, does not take extra fiber supplements [facility] Medical History (Reviewed 09/19/24 @ 08:30 by Lance Angulo [facility]) Family history of anesthesia complication Arthritis History of cardioversion Atrial fibrillation Asthma HTN (hypertension) Elevated cholesterol Diabetes Sciatica Sleep apnea Shoulder pain with history of repair of rotator cuff Surgical History H/O colonoscopy History of surgical removal of ganglion cyst Hx of rotator cuff surgery History of cardiac cath Hx of elbow surgery History of carpal tunnel release Hx of eye surgery Hx of tonsillectomy Hx of hernia repair Hx of knee surgery Family History Father Heart disease HTN (hypertension) Mother Atrial fibrillation Sister Diabetes Social History Household Members: Spouse Housing: House Are you a primary animal care assistant to a significant other at home: No Do you presently have visiting nurse or other home services: No Alcohol intake: current Alcohol intake frequency: does not drink Patient Tobacco Use Status: Never used Tobacco Substance Use Type: Marijuana service: No Current 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 status: retired Review of Systems Const Denies weight gain and Denies weight loss ENT Reports no additional complaints, Denies dysphagia and Denies odynophagia Card Reports no additional complaints Resp Reports no additional complaints GI Denies abdominal pain, Denies belching, Denies melena, Reports bloating, Reports hematochezia (Occasional), Denies change in bowel habits, Denies dysphagia, Denies excessive flatus, Denies dyspepsia, Denies heartburn, Denies diarrhea, Reports loose stools, Denies nausea, Denies odynophagia and Denies vomiting Reports no additional complaints Musc Reports no additional complaints Neuro Reports no additional complaints Psych Reports no additional complaints Endo Reports no additional complaints Physical Exam Vital Signs: Last Vital Signs Pulse 76 09/19/24 08:30 BP 134/64 09/19/24 08:30 Pulse Ox 97 09/19/24 08:30 Oxygen Delivery Method Room Air 09/19/24 08:30 BMI result Body Mass Index 44.8 Const General: healthy appearing and no acute distress Nutritional Appearance: obese Orientation/consciousness: patient oriented x3 Resp Effort & Inspection: normal respiratory effort, able to speak in complete sentences, no tracheal deviation and symmetric chest movement Auscultation: clear to auscultation bilaterally Cardio Jugular venous distension: no JVD Rate: regular rate GI Inspection: Yes normal to inspection, No distended and Yes obesity Palpation (GI): Soft to palpation, not firm, nontender and No hepatosplenomegaly present Auscultation: normal bowel sounds General: Yes no CVA tenderness Back/Spine/Pelvis Back: no CVA tenderness Skin General skin exam: elasticity normal, turgor normal and dry skin Neuro General: patient oriented x3 Psych Appearance: grossly normal Mental Status: mental status grossly normal Speech and movement: Normal speech and movement present Affect: normal affect Assessment & Plan Assessment & Plan (1) Hemorrhoids: Comment: declines surgical consult Uses wipes- Code(s): K64.9 - Unspecified hemorrhoids Category: Medical Qualifiers: Hemorrhoid type: other Qualified Code(s): K64.8 - Other hemorrhoids (2) Postprandial diarrhea: Code(s): K52.9 - Noninfective gastroenteritis and colitis, unspecified Plan Patient will increase fiber intake. Frvs-qub-vxctixy fiber and probiotics as recommended. Patient was encouraged to increase fluid intake and activity to promote better bowel motility. Continue avoiding alcohol. Sitz baths recommended with Epsom salts. Script for Proctosol send. Patient will follow- up in 3 months, sooner on as needed basis. He is agreeable to plan of care and verbalizes understanding of instructions. He was given the opportunity to ask questions and all questions answered. Thank you for allowing me to participate in his care Medications: New hydrocortisone 2.5% (Proctosol HC) 1 appl NV BID-QID PRN 30 grams 2RF hemorrhoids K64.9 - Unspecified hemorrhoids Discontinued sennosides (Senna Lax) Discontinued Reason: Patient Completed Course 17.2 mg (2 x 8.6 mg) PO BEDTI ME 14 days 28 tabs 0RF Coding Level of Care Code Est Pt Level 3 (71144) Diagnoses Other hemorrhoids K64.8 Hemorrhoid type: other Postprandial diarrhea K52.9 Time Spent (min) 30 Comment 20 minutes spent with patient and additional 10 minutes spent reviewing his records
== END 2024-09-19 08:58 | disposition home or self-care (01) ==
PROVIDERS: PCP Internal Medicine; Visit Provider Nurse Practitioner Family
DX: K64.8 Other hemorrhoids (principal); K52.9 Noninfective gastroenteritis and colitis, unspecified
CPT/HCPCS: 99213

== ENCOUNTER → 2024-09-19 08:22 | Outpatient (BNVA) | payer MEDICARE, SELFPAY | PROVIDERS: PCP Internal Medicine; Visit Provider Nurse Practitioner Family | DX: K64.8 Other hemorrhoids (principal); K52.9 Noninfective gastroenteritis and colitis, unspecified | CPT/HCPCS: 99212 ==

== ENCOUNTER 2024-09-26 08:51 | Outpatient (AMB) | payer MEDICARE, SELFPAY ==
--- NOTE | 2024-09-26 08:52 | MHC.OFFVIS ---
Intake Visit Reasons: PO: L TSA 07/13/24 Intake Note: Olive is a 69 year old male who presents today for a post operative appointment s/p Left TSA 07/13/24. At his last visit it was recommended that he avoid lifting and gradually work on ROM with physical therapy. Patient reports that he is doing well, he works with Physical therapy and completes HEP, but continues to struggle with recurring stiffness. Allergies iron Allergy (Severe, Verified 09/19/24 08:36) Rash ( from oral supplement) HPI HPI PO: L TSA 07/13/24: Details: Olive is a 69 year old male who presents today for a post operative appointment s/p Left TSA 07/13/24. At his last visit it was recommended that he avoid lifting and gradually work on ROM with physical therapy. Patient reports that he is doing well, he works with Physical therapy and completes HEP, but continues to struggle with recurring stiffness. [facility] Medical History Family history of anesthesia complication Arthritis History of cardioversion Atrial fibrillation Asthma HTN (hypertension) Elevated cholesterol Diabetes Sciatica Sleep apnea Shoulder pain with history of repair of rotator cuff Surgical History H/O colonoscopy History of surgical removal of ganglion cyst Hx of rotator cuff surgery History of cardiac cath Hx of elbow surgery History of carpal tunnel release Hx of eye surgery Hx of tonsillectomy Hx of hernia repair Hx of knee surgery Family History Father Heart disease HTN (hypertension) Mother Atrial fibrillation Sister Diabetes Social History Household Members: Spouse Housing: House Are you a primary care clinician to a significant other at home: No Do you presently have visiting nurse or other home services: No Alcohol intake: current Alcohol intake frequency: does not drink Patient Tobacco Use Status: Never used Tobacco Substance Use Type: Marijuana service: No Current 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 status: retired Physical Exam Extrem Other: 2090/100/hip pocket Results Reviewed Results Reviewed: I personally reviewed relevant radiographs. Left TSA in expected post operative position with no hardware complications or evidence of loosening Assessment & Plan Assessment & Plan (1) Status post total replacement of left shoulder: Code(s): Z96.612 - Presence of left artificial shoulder joint Category: Surgical Plan: Status post left shoulder replacement. He is doing well. He is much improved from prior. Continues to struggle with stiffness. Preoperatively he was extremely stiff and I am pleased with his progress. I think there is still room for improvement however. He should continue his home exercises. May follow up in 9 months at the 1 year time point or any time sooner should there be a problem. Orders: Orders XR shoulder LT min 2V Today M25.519 - Pain in unspecified shoulder Coding Level of Care Code Global (52980) Diagnoses Status post total replacement of left shoulder Z96.612
== END 2024-09-26 09:20 | disposition home or self-care (01) ==
PROVIDERS: PCP Internal Medicine; Visit Provider Orthopaedic Surgery
DX: Z96.612 Presence of left artificial shoulder joint (principal)
CPT/HCPCS: 99024

== ENCOUNTER → 2024-09-26 08:56 | Outpatient (BNV) | payer MEDICARE, SELFPAY | PROVIDERS: Visit Provider Radiology Diagnostic Radiology | DX: M25.512 Pain in left shoulder (principal) | CPT/HCPCS: 73030 ==

== ENCOUNTER 2024-09-26 10:03 | Outpatient (REF) | payer MEDICARE, OTHER, SELFPAY ==
--- NOTE | ~2024-09-26 | XR_ITS ---
CLINICAL HISTORY: M25.519 - Pain in unspecified shoulder 3 view left shoulder Comparison: DX - XR SHOULDER LT MIN 2V - 08/18/24 14:09 EST Findings: No fractures or dislocations. Prior left shoulder arthroplasty. No findings to suggest failure. AC joint hypertrophy. No erosions. No radiopaque foreign body. Visualized left lung is clear. IMPRESSION: 1. Postoperative changes. No findings of hardware complication or failure. No acute fracture. This document has been electronically signed by: Pamela Zhu MD on 09/27/2024 05:56:40
== END 2024-09-26 10:04 | disposition home or self-care (01) ==
LOC: HO.HOSX 10:03
PROVIDERS: Visit Provider Orthopaedic Surgery
DX: M25.562 Pain in left knee (principal); Z96.612 Presence of left artificial shoulder joint
CPT/HCPCS: 73030; 99212

== ENCOUNTER 2024-09-30 11:59 | Outpatient (RCR) | payer MEDICARE, OTHER, SELFPAY ==
--- NOTE | 2024-08-16 16:33 | MHC.PT.EP ---
[facility] [place] Office [place] Office [place] Office [address] Megan Hogan [address] [phone] F: [phone] F: [phone] F: [phone] F: [phone] Physical Therapy Plan of Care Date of Evaluation: 08/16/24 Date of Surgery: 07/13/24 Diagnosis: L TSA 07/13/24 (RL) Assessment: pt is a 69 y/o male presenting to physical therapy w/ referring diagnosis of Post Op shoulder left. pt underwent L TSA w/ subscap repair on 07/13/24. Impairments include pain, decreased range of motion, decreased strength, impaired functional mobility, impaired postural awareness, and altered ambulation mechanics. pt is a good candidate for skilled PT due to age, potential remediation of impairments, typical disease/condition progression and prognosis, comorbidities, and motivation. pt would benefit from skilled PT intervention to provide a tailored strengthening and stretching exercise program, functional training, gait training, postural re-training, neuromuscular re-education, modalities as needed for pain, equipment safety demonstration. Frequency and Duration: The patient will be seen 2x/wk for 8 wks Short Term Goals: pt will be I w/ HEP to promote self-management of condition. pt will achieve 0* of elbow extension to promote ease in ADLs. Care Home Goals: pt will improve L shoulder flexion AROM to at least 75* to promote ease in meal prep. pt will report a statistically significant improvement in self-reported outcome measure, SPADI, to promote return to PLOF. Treatment Plan: Modalities to reduce pain, spasms and effusion. Manual therapy to restore motion and function. Therapeutic exercise to improve strength and flexibility. Neuromuscular re-education for posture and balance. Therapeutic activities to return to functional activities of daily living. Electronically signed by: Mariely Rizo PT, DPT Please sign and return to therapist. Thank you for your referral.
--- NOTE | 2024-10-12 11:58 | MHC.PT.DC ---
[facility] [place] [facility] [place] [facility] [place] [facility] [address] Megan Hogan [address] [phone] F: [phone] F: [phone] F: [phone] F: [phone] Physical Therapy Discharge Report Diagnosis: L TSA 07/13/24 (RL) Date of Surgery: 07/13/24 Date of Evaluation: 08/16/24 Date of Discharge: 10/12/24 Treatments to Date: 11 Cancellations to Date: 2 No Shows to Date: 0 Discharge Status: Achieved Goals Independent with HEP Discharge Summary: The patient has achieved all of his goals established at the initial evaluation. He feels at this time he does not wish to continue to progress his rehab. He is independent with his home exercise program and was encouraged to continue this on his own. He is discharged from this physical therapy plan of care. Electronically signed by: Mariely Rizo PT, DPT Please sign and return to therapist. Thank you for your referral.
== END 2024-10-12 11:58 | disposition home or self-care (01) ==
LOC: HO.PT 11:59
PROVIDERS: PCP Internal Medicine; Visit Provider Physician Assistant
DX: Z96.612 Presence of left artificial shoulder joint (principal)
CPT/HCPCS: 97110; 97140; 97162

== ENCOUNTER 2024-11-22 09:52 | Outpatient (AMB) | payer MEDICARE, SELFPAY ==
[2024-11-22 10:31] VITALS: BP 112/60
--- NOTE | 2024-11-22 10:31 | AM.OFFVISNUR ---
Vital Signs 11/22/24 10:31 BP 112/60 Blood Pressure Location Lt brachial Position Sitting Intake Visit Reasons: EKG Allergies iron Allergy (Severe, Verified 09/19/24 08:36) Rash ( from oral supplement) Nursing Note pt is here for nurse with ekg and blood pressure check pt has sob and feels palpitations frequently ekg reviewed by MIXOLOGIST DC Office Procedures EKG [id number], Complete Coding CPT Codes EKG - CPT: 77775-[id number], Complete ([id number])
--- OUTSIDE RECORDS SUMMARY | 2024-11-22 11:16 | XMS_ITS | Encounter Summary ---
Author Organization [employer] Address [address] [place] [address] 7 [place] [address] Care Team Providers Care Harvest Supervisor Name Role Phone Corey Canseco MD Primary Care Prov ider Reason for Visit * Reason Onset Date Comments Med Refill 11/07/2024 Encounter Details Date Type Department Care Team ([facility] st Contact Info) Description 11/07/2024 Refill [facility] MED & PEDS [address] [place] [address] Corey Canseco MD [address] [place] [address] Social History Tobacco Use Types Packs/Day Years Used Date Smoking Tobacco: Never Passive Smoke Exposure: Never Smokeless Tobacco: Never Alcohol Use Standard Drinks/Week Comments Yes 4 (1 standard drink = 0.6 oz pur e alcohol) Alcohol Answer Date Recorded How often do you have a drink containing alcohol ? 4 05/19/2024 How many drinks containing a lcohol do you have on a typical day when you are drinking? 2 05/19/2024 How often do you have six or more drinks on one occasion? 3 05/19/2024 Depression Answer Date Recorded Patient Health Questionnaire-9 Score 10 08/18/2024 Patient Health Questionnaire-9 Score 10 08/18/2024 Last PHQ-9: Questionnaire Data Not on file 1 10/19/2023 Housing Stability Answer Date Recorded What is your housing situation today? I have dino spring 07/01/[address] you li ve. Do you have problems with any of the following? None of the above 07/01/2023 Food Insecurity Answer Date Recorded Within the past 12 months, y ou worried that your food would run out before you got money to buy more: Never True 07/01/2023 Within the past 12 months,th e food you bought just didn't last and you didn't have enough money to get more: Never True Transportation Answer Date Recorded In the past 12 months, has l ack of transportation kept you from medical appts, meetings, work or from getting things needed for daily living? No 07/01/2023 Utilities Answer Date Recorded In the past 12 months, has t he electric, gas, oil or water company threatened to shut off services in your home? No 07/01/2023 Depression Answer Date Recorded Patient Health Questionnaire-2 Score 2 08/18/2024 Sex and Gender Information Value Date Recorded Sex Assigned at Male 07/14/2022 10:36 AM EDT Legal Sex Male 10:36 AM EDT Gender Identity Male 07/14/2022 10:36 AM EDT Sexual Orientation Straight 07/14/2022 10 :36 AM EDT documented as of this encounter Plan of Treatment Upcoming Encounters Date Type Department Care Team (Late st Contact Info) Description 11/30/2024 9:00 AM EDT Office Visit [facility] MED & PEDS [address] [place] [address] Corey Canseco MD [address] [place] [address] documented as of this encounter Visit Diagnoses Not on filedocumented in this encounter Additional Health Concerns Assessment Noted Time PHQ-9 Depression Total Score: 10 024 9:32 AM EST documented as of this encounter Care Teams Harvest Supervisor Relationship Specialty Start Date End Date Corey Canseco MD [address] [place] [address] PCP - General Internal Medicine 09/09/19 documented as of this encounter
--- OUTSIDE RECORDS SUMMARY | 2024-11-22 11:16 | XMS_ITS | Encounter Summary ---
Author Organization [employer] Address [address] [place] [address] [facility] [place] [address] Care Team Providers Care Rn Testing Name Role Phone Corey Canseco MD Primary Care Prov ider Reason for Visit * Reason Comments Med Refill Encounter Details Date Type Department Care Team (Late Contact Info) Description 03/20/2023 Refill [facility] MED & PEDS [address] [place] [address] Corey Canseco MD [address] [place] [address] Social History Tobacco Use Types Packs/Day Years Used Date Smoking Tobacco: Never Passive Smoke Exposure: Never Smokeless Tobacco: Never Alcohol Use Standard Drinks/Week Comments Yes 4 (1 standard drink = 0.6 oz pur e alcohol) Depression Answer Date Recorded Patient Health Questionnaire-9 Score 0 12/19/2022 Depression Answer Date Recorded Patient Health Questionnaire-2 Score 0 12/19/2022 Sex and Gender Information Value Date Recorded Sex Assigned at Male 07/14/2022 10:36 AM EDT Legal Sex Male 10:36 AM EDT Gender Identity Male 07/14/2022 10:36 AM EDT Sexual Orientation Straight 07/14/2022 10 :36 AM EDT documented as of this encounter Plan of Treatment Upcoming Encounters Date Type Department Care Team ([facility] Contact Info) Description 11/30/2024 9:00 AM EDT Office Visit [facility] MED & PEDS [address] [place] [address] Corey Canseco MD [address] [place] [address] documented as of this encounter Visit Diagnoses Not on filedocumented in this encounter Additional Health Concerns Assessment Noted Time PHQ-9 Depression Total Score: 0 12/20/19 23 9:39 AM EDT documented as of this encounter Care Teams Rn Testing Relationship Specialty Start Date End Date Corey Canseco MD [address] [place] [address] PCP - General Internal Medicine 09/09/19 documented as of this encounter
--- OUTSIDE RECORDS SUMMARY | 2024-11-22 11:16 | XMS_ITS | Encounter Summary ---
Author Organization [employer] Address [address] [place] [address] Care Team Providers Care Fleet Mechanic Name Role Phone Corey Canseco MD Primary Care Prov ider Encounter Details Date Type Department Care Team (Latest Contact Info) Description 09/28/2020 Abstract [facility] CONVERSIONS Dental, Provider, DDS Social History Tobacco Use Types Packs/Day Years Used Date Smoking Tobacco: Never Assessed Sex and Gender Information Value Date Recorded Sex Assigned at Male 07/14/2022 10:36 AM EDT Legal Sex Male 10:36 AM EDT Gender Identity Male 07/14/2022 10:36 AM EDT Sexual Orientation Straight 07/14/2022 10 :36 AM EDT documented as of this encounter Plan of Treatment Upcoming Encounters Date Type Department Care Team (Late st Contact Info) Description 11/30/2024 9:00 AM EDT Office Visit [facility] CHC MED & PEDS [address] [place] [address] Corey Canseco MD [address] [place] [address] documented as of this encounter Visit Diagnoses Not on filedocumented in this encounter Care Teams Fleet Mechanic Relationship Specialty Start Date End Date Corey Canseco MD [address] [place] [address] PCP - General Internal Medicine 09/09/19 documented as of this encounter
--- OUTSIDE RECORDS SUMMARY | 2024-11-22 11:16 | XMS_ITS | Encounter Summary ---
Author Organization [employer] Address [address] [place] [address] [address] [address] Care Team Providers Care Acds Block 1 Operator Name Role Phone Corey Canseco MD Primary Care Prov ider Encounter Details Date Type Department Care Team (Latest Contact Info) Description 09/26/2019 Abstract [facility] CONVERSIONS Dental, Provider, DDS Social History [...] Description 11/30/2024 9:00 AM EDT Office Visit [facility] CH[facility] MED & PEDS [address] [place] [address] Corey Canseco MD [address] [place] [address] documented as of this encounter Visit Diagnoses Not on filedocumented in this encounter Care Teams Acds Block 1 Operator Relationship Specialty Start Date End Date Corey Canseco MD [address] [place] [address] PCP - General Internal Medicine 09/09/19 documented as of this encounter
--- OUTSIDE RECORDS SUMMARY | 2024-11-22 11:16 | XMS_ITS | Encounter Summary ---
Author Organization [employer] Address [address] [place] [address] [address] [place] [address] Care Team Providers Care Linseed Oil Order Filler Name Role Phone Corey Canseco MD Primary Care Prov ider Encounter Details Date Type Department Care Team (Late st Contact Info) Description 11/11/2024 Orders Only [facility] [address] [place] [address] Provider, MD Марина Social History Tobacco Use Types Packs/Day Years [...] Description 11/30/2024 9:00 AM EDT Office Visit [facility] CHC MED & PEDS [address] [place] [address] Corey Canseco MD [address] [place] [address] documented as of this encounter Procedures Procedure Name Priority Date/Time Associated Diagnosis Comments DIABETES EYE EXAM Routine 11/10/2024 9:37 AM EST documented in this encounter Results * Diabetes Eye Exam (11/10/2024 9:37 AM EST) Historical Provider HEALTH MAINTENANCE Final Result documented in this encounter Visit Diagnoses Not on filedocumented in this encounter Additional Health Concerns Assessment Noted Time PHQ-9 Depression Total Score: 10 024 9:32 AM EST documented as of this encounter Care Teams Linseed Oil Order Filler Relationship Specialty Start Date End Date Corey Canseco MD [address] [place] [address] PCP - General Internal Medicine 09/09/19 documented as of this encounter
--- OUTSIDE RECORDS SUMMARY | 2024-11-22 11:16 | XMS_ITS | Encounter Summary ---
Author Organization [employer] Address [address] [place] [address] 7 [place] [address] Care Team Providers Care Bottle Caser Name Role Phone Corey Canseco MD Primary Care Prov ider Reason for Visit * Reason Comments Med Refill Encounter Details Date Type Department Care Team ([facility] st Contact Info) Description 11/19/2024 Refill [facility] MED & PEDS [address] [place] [address] Corey Canseco MD [address] [place] [address] Mixed hyperlipidemia; Type 2 diabetes mellitus without complication, without long-term current use of insulin ([facility] Social History Tobacco Use Types Packs/Day Years [...] Description 11/30/2024 9:00 AM EDT Office Visit [facility] MED & PEDS [address] [place] [address] Corey Canseco MD [address] [place] [address] documented as of this encounter Visit Diagnoses Diagnosis Mixed hyperlipidemia Type 2 diabetes mellitus without complication, without long-term current use of insulin ([facility]) documented in this encounter Additional Health Concerns Assessment Noted Time PHQ-9 Depression Total Score: 10 024 9:32 AM EST documented as of this encounter Care Teams Bottle Caser Relationship Specialty Start Date End Date Corey Canseco MD [address] [place] [address] PCP - General Internal Medicine 09/09/19 documented as of this encounter
--- OUTSIDE RECORDS SUMMARY | 2024-11-22 11:16 | XMS_ITS | Encounter Summary ---
Author Organization [employer] Address [address] [place] [address] [address] [place] [address] Care Team Providers Care Sheet Roller Operator Name Role Phone Corey Canseco MD Primary Care Prov ider Reason for Visit * Reason Comments Routine Cleaning Dental Exam Encounter Details Date Type Department Care Team ([facility] Contact Info) Description 11/02/2024 9:00 AM EST Office Visit [facility] ADULT DENTAL [address] [place] [address] Nettie Everett Social History Tobacco Use Types Packs/Day Years [...] AM EDT documented as of this encounter Last Filed Vital Signs Vital Sign Reading Time Taken Comments Blood Pressure 118/82 11/02/2024 9:02 AM EST Pulse - - Temperature - - Respiratory Rate - - Oxygen Saturation - - Inhaled Oxygen Concentration - - Weight - - Height - - Body Mass Index - - documented in this encounter Progress Notes * Nettie Everett - 11/02/2024 9:00 AM EST Patient ID: Olive Tobias is a 69 y.o. male. Time Out: Timeout Date: 11/02/24, Timeout Time: 09 Location: [facility] Tooth: Maxilla and Mandible Procedure: Exam, X-rays, and Prophylaxis Verified the above with patient, certified dental assistant, and provider. Confirmed via patient's chart, intraorally and by radiographs. Global Lead: not applicable Medical Hx: Vitals: Blood pressure 118/82. Medications, Med Hx reviewed with patient and updated in chart. Treatment Provided Dental procedures in this visit D1110 - PROPHYLAXIS - ADULT (Completed) Service provider: Nettie Portillo provider: Maryana Penn DDS D1330 - ORAL HYGIENE INSTRUCTIONS (Completed) Service provider: Nettie Portillo provider: Maryana Penn DDS D0274 - BITEWINGS - 4 RADIOGRAPHIC IMAGES (Completed) Service provider: Nettie Portillo provider: Maryana Penn DDS D0220 - INTRAORAL - PERIAPICAL FIRST RADIOGRAPHIC IMAGE (Completed) Service provider: Nettie Everett Billing provider: Maryana Penn DDS D0230 - INTRAORAL - PERIAPICAL EACH ADDITIONAL RADIOGRAPHIC IMAGE (Completed) Service provider: Nettie Everett Billing provider: Maryana Penn DDS Instruments Used: Ultrasonic Scalers, Hand Scalers, and Prophy angle Fluoride: N/A Oral Cancer Screening: No lesions Head/Neck Exam: No Lesions Calculus: Light and Generalized Plaque: Light and Generalized Stain: Light and Localized Bleeding: Light and Localized Gingiva: Perio Charting Completed, Recession- localized, and Erythematous [place]: Good Perio Chart: Completed Dental exam done by Dr. Brink. Oral hygiene instructions provided to patient including brushing technique and flossing. Recommendations: [place] two times daily, modified gomez technique, Floss daily, Electric toothbrush, Soft bristle toothbrush, [place] Tongue, Anti-sensitivity toothpaste Recall Frequency: 6 mo NV: Restorations & Consult Hygienist: Nettie Everett RDH documented in this encounter Plan of Treatment Upcoming Encounters Date Type Department Care Team (Late st Contact Info) Description 11/30/2024 9:00 AM EDT Office Visit [facility] MED & PEDS [address] [place] [address] ChambersCorey Grace MD [address] [place] [address] Scheduled Orders Name Type Priority Associated Diagnoses Orde r Schedule 8 DIF(V) 8 DIF(V) RESIN-BASED COMPOSITE - 3 SURF, ANTERIOR Dental Routine 1 Occurrences [facility] 11/02/2024 9 F(V) 9 F(V) RESIN-BASED COMPOSITE - 1 SURF, ANTERIOR Dental Routine 1 Occurrences [facility] 11/02/2024 10 F 10 F RESIN-BASED COMPOSITE - 1 SURF, ANTERIOR Dental Routine 1 Occurrences [facility] 11/02/2024 11 F(V) 11 F(V) RESIN-BASED COMPOSITE - 1 SURF, ANTERIOR Dental Routine 1 Occurrences [facility] 11/02/2024 CONSULTATION WITH A [facility] Dental Routine 1 Occurrences [facility]11/02/2024 documented as of this encounter Procedures Procedure Name Priority Date/Time Associated Diagnosis Comments PROPHYLAXIS - ADULT Routine 11/02/2024 9 :00 AM EST ORAL HYGIENE INSTRUCTIONS Routine 2024 9:00 AM EST INTRAORAL - PERIAPICAL FIRST RADIOGRAPHIC IMAGE Routine 11/02/2024 9:00 AM EST INTRAORAL - PERIAPICAL EACH ADDITIONAL RADIOGRAPHIC IMAGE Routine 11/02/2024 9:00 AM EST BITEWINGS - 4 RADIOGRAPHIC IMAGES Routine 11/02/2024 9:00 AM EST documented in this encounter Visit Diagnoses Not on filedocumented in this encounter Additional Health Concerns Assessment Noted Time PHQ-9 Depression Total Score: 10 024 9:32 AM EST documented as of this encounter Care Teams Sheet Roller Operator Relationship Specialty Start Date End Date Corey Canseco MD [address] [place] [id number] PCP - General Internal Medicine 09/09/19 documented as of this encounter
--- OUTSIDE RECORDS SUMMARY | 2024-11-22 11:16 | XMS_ITS | Clinical Summary ---
Author Organization [employer] Address [address] [place] [address] [address] [place] [address] Care Team Providers Care Musculoskeletal Physiotherapist Name Role Phone Corey Canseco MD Primary Care Prov ider Allergies Active Allergy Reactions Criticality Noted Date Comments Ferrous Sulfate 10/15/2022 Iron 09/26/2019 Medications * This document contains information received from the source organization and may not represent a complete record from that organization. azelastine (Astelin) 0.1 % nasal spray spray 2 spray by intranasal route 2 times every day in each nostril 022 Active fluticasone (Flonase) 50 MCG/ACT nasal spray Administer 1-2 sprays into affected nostril(s) at bed time. 022 Active lidocaine-priloca ine (Emla) 2.5-2.5 % cream apply by topical route one to two times daily 021 Active celecoxib (CeleBREX) 200 MG capsuleIndication s:Pain Take 1 tab as needed for pain up to twice daily; take with food 40 capsule 023 Active pseudoephedrine ER (Sudafed-12 Hour) 120 MG 12 hr tablet TAKE ONE TABLET BY MOUTH EVERY TWELVE HOURS 30 tablet 023 Active Diclofenac Sodium 1 % gel APPLY TWO GRAMS TO THE AFFECTED AREA(s) THREE TIMES DAILY 100 g 3 024 Active Alcohol Swabs (SM Alcohol Prep) 70 % pads USE THREE DAILY 100 each 11 024 Active glucose blood (FREESTYLE LITE) test stripIndications: Type 2 diabetes mellitus without complications ([facility]) TEST BLOOD SUGAR THREE TIMES DAILY 100 strip 11 Active tobramycin-dexAME THasone (Tobradex) ophthalmic suspension INSERT ONE DROP IN THE AFFECTED EYE (S) EVERY 6 HOURS 5 mL Active albuterol (Ventolin HFA) 108 (90 Base) MCG/ACT inhaler INHALE TWO PUFFS EVERY 4 TO 6 HOURS NEEDED 18 g Active montelukast (Singulair) 10 MG tablet TAKE ONE TABLET EVERY EVENING 90 tablet 3 Active lisinopril 10 MG tabletIndications :Primary hypertension TAKE 1 TABLET EVERY MORNING 30 tablet 6 Active atorvastatin (Lipitor) 40 MG tabletIndications :Mixed hyperlipidemia TAKE ONE TABLET EVERY MORNING 90 tablet 1 024 Active Jardiance 25 MGIndications:Typ e 2 diabetes mellitus without complication, without long-term current use of insulin ([facility]) TAKE ONE TABLET EVERY MORNING 90 tablet 1 Active Easy Touch Lancets 33G/Twist miscIndications:T ype 2 diabetes mellitus without complications ([facility]) TEST BLOOD SUGAR THREE TIMES DAILY 100 each 5 Active cholecalciferol (Vitamin D-3) 25 MCG tabletIndications :Vitamin D deficiency TAKE ONE TABLET EVERY MORNING 90 tablet 1 Active cyanocobalamin (Vitamin B-12) 1000 MCG tabletIndications :Vitamin B 12 deficiency TAKE ONE TABLET EVERY MORNING 90 tablet 1 Active acetaminophen (Tylenol) 325 MG tablet Take 2 tablets by mouth every 6 (six) hours if needed for fever, headaches or moderate pain. Active metoprolol tartrate (Lopressor) 25 MG tablet Take 1 tablet by mouth 2 times daily. Active oxyCODONE (Roxicodone) 10 MG immediate release tablet Take 1 tablet by mouth every 4 (four) hours if needed for moderate pain. Active senna (Senokot) 8.6 MG tablet Take 2 tablets by mouth at bedtime. Active cetirizine (ZyrTEC) 10 MG tablet TAKE ONE TABLET EVERY MORNING 90 tablet Active tamsulosin (Flomax) 0.4 MG 24 hr capsule TAKE ONE CAPSULE EVERY NIGHT AT BEDTIME 30 capsule 3 024 Active gabapentin (Neurontin) 300 MG capsule TAKE ONE CAPSULE THREE TIMES DAILY IN THE MORNING, EVENING AND BEDTIME 90 capsule 1 025 Active Dulaglutide (Trulicity) 1.5 MG/0.5ML solution auto-injectorIndi cations:Type 2 diabetes mellitus without complication, without long-term current use of insulin ([facility]) Inject 1.5 mg under the skin 1 (one) time per week. 2 mL 025 2025 Active apixaban (Eliquis) 5 MG tablet Take 1 tablet (5 mg) by mouth 2 times daily. 60 tablet Active Eliquis 5 MG tablet TAKE ONE TABLET IN THE MORNING AND EVENING 60 tablet 025 2024 Discontinued(R eorder (will not trigger notification to Pharmacy)) Active Problems Problem Noted Date Diagnosed Date Neuropathic pain 07/29/2024 Assessment & Plan (07/29/2024 1:51 PM EST): Patient complains mostly of numbness on lower extremity, on examination no swelling, pulses were palpate +2, no skin color changes, no tenderness, denied having pain, will give a trial of gabapentin, call back if worsening Grief 07/21/2024 Pre-op evaluation 07/05/2024 Assessment & Plan (07/05/2024 11:41 PM EDT): Patient will undergo left shoulder replacement Denied chest pain or shortness of breath Mets >4 Blood work done today at [facility] Told to continue oral antyhypertensives the day of procedure Hold trulicity and jardiace 1 week prior procedure Avoid nsaids/asa 5 days prior procedure Hold eliquis 2 days prior procedure restart next day of surgery Benign prostatic hyperplasia with nocturia 05/25 Assessment & Plan (05/25/2024 12:56 PM EDT): Discussed imaging findings, will start on flomax, risk vs benefits discussed, Cannabis use disorder 03/14/2024 Mild depression 12/24/2023 Chronic left shoulder pain 11/30/2023 Assessment & Plan (03/07/2024 1:57 PM EDT): Seen by ortho he will undergo surgery on Jun, call back if pre-op requiered Assessment & Plan (11/30/2023 10:03 PM EDT): Most likely OA will send a shoulder x-ray to evaluate severity Right leg pain 11/30/2023 Assessment & Plan (11/30/2023 10:04 PM EDT): Patient complains of right leg pain after walking for 1 block were he has to stop, I would like to rule out intermittent claudication, will refer to vascular surgery for eval Fecal smearing 11/30/2023 Assessment & Plan (03/07/2024 2:26 PM EDT): Will refer to [facility] Assessment & Plan (11/30/2023 10:07 PM EDT): Will refer to gi for evalaution, refer constantly having mild stool incontinence, no bleeding Atrial fibrillation 02/24/2023 RUMA (generalized anxiety disorder) 01/23/2023 Assessment & Plan (02/13/2023 1:14 PM EDT): Assessment: Olive was engaged with active reflective listening and open-ended questions. Assessed symptoms, risks, and social supports with direct questions. Discussed current symptoms intensity and frequency. Emotions were normalized and validated. Olive identified working with cars as coping mechanisms and immediate family as protective factors. Discussed OP therapy, Polo is not ready to engage with other therapist at this time. Provided education around integrated medicine and the options of follow up BE's as needed. Provided contact information should questions or concerns arise. Plan: Olive will continue to engage in effective coping mechanisms of that has work for him in the past. At this time Olive Tobias meets criteria for Visit Diagnoses: Problem List Items Addressed This Visit Other Alcohol abuse Patient ready to address current needs No Strengths include his willing to try in doing better, hx on engagement in treatment. PLAN: 1. Follow up with [facility]: Recommended for follow-up: During AUD appt 2. Patient goal is become sober and reduce anxiety sxs. 3. Behavioral Recommendations a. Continue to use coping mechanisms b. Keeping his medical appts c. Continue to engage with [facility] for extra support. Assessment & Plan (01/23/2023 3:38 PM EDT): Assessment and Plan: Olive was engaged with active reflective listening and open-ended questions. Assessed symptoms, risks, and social supports with direct questions. Discussed current symptoms intensity and frequency. Emotions were normalized and validated. Olive identified working with cars as coping mechanisms and immediate family as protective factors. Discussed OP therapy, Polo is not ready to engage with other therapist at this time. Provided education around integrated medicine and the options of follow up BE's as needed. Provided contact information should questions or concerns arise. ?? Plan: Olive will continue to engage in effective coping mechanisms that has worked for him. I will continue to provide support every 3 weeks. Arthritis of knee, degenerative 12/05/2022 HLD (hyperlipidemia) 12/05/2022 Severe obesity 12/05/2022 Sleep apnea 12/05/2022 Uncontrolled type 2 diabetes mellitus 12/05/2022 Right foot pain 09/17/2022 Assessment & Plan (09/17/2022 12:45 PM EST): Patient refers that for the past month he has been experiencing a right foot pain proximal toes, feels like a ball on the bottom of his foot, denied trauma. Will order xray and will refer to podiatry Alcohol use disorder, mild, in early remission 0 09/23/2021 Assessment & Plan (07/30/2023 10:37 AM EST): Assessment: Patient with anxiety sxs and alcohol use. No risk for SI/HI/ self-harm at this time. Symptoms are present in the context of dealing with selling his mother house, stress relationship with family and dealing with finding insurance coverage. Provided space to vent and discussed harm reduction plan for the holidays, he will continue to log his alcohol intake, and will use effective coping mechanisms. At this time Olive Tobias meets criteria for Visit Diagnoses: Problem List Items Addressed This Visit Other Alcohol abuse RUMA (generalized anxiety disorder) Patient ready to address current needs Yes Strengths include Polo is in action stage of change towards his sobriety goal. PLAN: 1. Follow up with [facility]: Recommended for follow-up: 08/27/24 at 9am 2. Patient goal is become sober 3. Behavioral Recommendations a. Use of effective coping skills b. Keep alcohol log c. [facility] follow up. Assessment & Plan (05/28/2023 12:28 PM EDT): Assessment: Patient with irritability, frustration, persistent worry, racing thoughts, anxiousness, restlessness, and fearfulness. Factors contributing to his symptoms are, health insurance struggle, health, relationship stress with mother and alcohol use. Patient will benefit from IB follow up for support, patient declined interest in continuous churn buttermaker therapy. At this time Olive Tobias meets criteria for Visit Diagnoses: Problem List Items Addressed This Visit Other Alcohol abuse RUMA (generalized anxiety disorder) Patient ready to address current needs Yes Strengths include willing to continue to be engage with [facility] PLAN: 1. Follow up with [facility]: Recommended for follow-up: 07/02/23 at 9:30 am 2. Patient goal is to improve mental health 3. Behavioral Recommendations a. [facility] follow up b. Use of coping skill provided as recommended c. Continue alcohol log Assessment & Plan (02/13/2023 1:14 PM EDT): Assessment: Olive was engaged with active reflective listening and open-ended questions. Assessed symptoms, risks, and social supports with direct questions. Discussed current symptoms intensity and frequency. Emotions were normalized and validated. Olive identified working with cars as coping mechanisms and immediate family as protective factors. Discussed OP therapy, Polo is not ready to engage with other therapist at this time. Provided education around integrated medicine and the options of follow up BE's as needed. Provided contact information should questions or concerns arise. Plan: Olive will continue to engage in effective coping mechanisms of that has work for him in the past. At this time Olive Tobias meets criteria for Visit Diagnoses: Problem List Items Addressed This Visit Other Alcohol abuse Patient ready to address current needs No Strengths include his willing to try in doing better, hx on engagement in treatment. PLAN: 1. Follow up with [facility]: Recommended for follow-up: During AUD appt 2. Patient goal is become sober and reduce anxiety sxs. 3. Behavioral Recommendations a. Continue to use coping mechanisms b. Keeping his medical appts c. Continue to engage with [facility] for extra support. Hypertension 09/23/2021 Assessment & Plan (07/05/2024 11:36 PM EDT): Controlled, continue same treatment, encouraged low sodium diet, follow up in 4 months Assessment & Plan (05/25/2024 12:49 PM EDT): Controlled, continue current therapy, continue low sodium diet and exercise as tolerated Assessment & Plan (03/07/2024 1:56 PM EDT): No results provided today, but refers has remained stable at home, target <130/80, no changes in treatment will be made, keep low carb diet and exercise as tolerated, follow up in 3 months Assessment & Plan (11/30/2023 10:01 PM EDT): Controlled, reinforced low sodium diet and exercise as tolerated, continue current treatment, new labs will be ordered for guidance of therapy Assessment & Plan (12/19/2022 2:48 PM EDT): Controlled, remains below 130/80, reinforced low sodium diet and exercise as tolerated, followed by cardiology due to afib, no changes will be made, lab order placed to be done on next visit Assessment & Plan (09/17/2022 12:40 PM EST): Controlled, no changes will be made, bp target <130/80 Mild persistent asthma 09/23/2021 Type 2 diabetes mellitus 09/23/2021 Assessment & Plan (07/05/2024 11:38 PM EDT): Improving, patient tolerated trulicity, will increase dose to 1.5mg, told to stop glipizide/metformin, continue with jardiance, plan is to increase trulicity on next visit Assessment & Plan (06/02/2024 11:12 AM EDT): Controlled, but due to increased risk for cardiovascular disease and risk of hypoglycemia with glipizide, will ad kamran, told to stop glipizide as treatment started Assessment & Plan (03/07/2024 2:14 PM EDT): A1c was 6.7% 3 months ago, no changes will be made, continue current treatment. New labs ordered for next visit Eye exam done 2023 Assessment & Plan (11/30/2023 10:08 PM EDT): Controlled A1c was 6.7%, no episode of hypoglycemia, continue same treatment, new labs ordered Will provide clotrimazole for tinea pedis Patient was seen previously by podiatry needs shoe insert, he used pure stride, will send request Assessment & Plan (12/19/2022 2:50 PM EDT): Last a1c from 09/2022 was 6.0%, average in the 120's, continue low carb/no sugar diet and current medications Assessment & Plan (09/17/2022 12:40 PM EST): Controlled, will order new a1c for guidance of therapy, his eye exam is schedule for October 14 Encounters * This document contains information received from the source organization and may not represent a complete record from that organization. Date Type Department Care Team Description 11/19/2024 Refill [facility] [address] [place] [address] Corey Canseco MD Mixed hyperlipidemia; Type 2 diabetes mellitus without complication, without long-term current use of insulin ([facility]) 11/11/2024 Orders Only [facility] [address] [place] [address] Марина Duffy MD 11/07/2024 Refill [facility] [address] [place] [address] Corey Canseco MD 11/02/2024 9:00 AM EST Office Visit [facility] [address] [place] [address] Nettie Everett 10/07/2024 8:30 AM EST Telemedicine [facility] [address] [place] [address] Gabriel Rothman MD Alcohol use disorder (Primary Dx) 10/07/2024 Orders Only [facility] [address] [place] [address] Corey Canseco MD Type 2 diabetes mellitus without complication, without long-term current use of insulin ([facility]) (Primary Dx) 10/07/2024 Travel 09/23/2024 Refill [facility] [address] [place] [address] Corey Canseco MD 09/20/2024 Refill [facility] [address] [place] [address] Corey Canseco MD 09/09/2024 8:30 AM EST Telemedicine [facility] [address] [place] [address] Gabriel Rothman MD Alcohol use disorder (Primary Dx) 09/09/2024 Travel 08/26/2024 Refill [facility] [address] [place] [address] Corey Canseco MD 08/26/2024 Refill [facility] [address] [place] [address] Corey Canseco MD 08/24/2024 Refill [facility] [address] [place] [address] Corey Canseco MD from Last 3 Months Immunizations Name Administration Dates Next Due Influenza High-dose Quadriva lent Preservative Free 06/11/2023,07/07/2022,06/26/2021 Influenza Injectable Quadriv alant Preservative Free IIV4 MDCK 06/26/2020 Influenza injectable quadriv alent preservative free 06/29/2019,06/08/2018,07/01/2016 Influenza, High Dose Seasona l, Preservative Free 06/10/2024 Pfizer Covid-19 Vaccine 12+ 06/10/2024,0 01/07/2022,07/21/2021,11/15,10/26/2020 Pfizer Covid-19 Vaccine 12+ dagmar-sucrose (Martinez Cap) 01/07/2022 Pneumococcal Conjugate PCV 20 02/05/2022 Pneumococcal Polysaccharide PPSV23 02/07/2016 RSV Adjuvant 06/11/2023 Tdap 03/25/2021 Zoster, Recombinant 11/16/2019,09/09/2019 Family History Medical History Relation Name Comments Coronary artery disease Father Hypertension Father Cancer Maternal Grandfather Stroke Maternal Grandmother Atrial fibrillation Mother Diabetes Sister Relation Name Status Comments Father Maternal Grandfather Maternal Grandmother Mother Sister Social History Tobacco Use Types Packs/Day Years Used Date Smoking Tobacco: Never Passive Smoke Exposure: Never Smokeless Tobacco: Never Tobacco Cessation:Counseling Given: Not Answered Alcohol Use Standard Drinks/Week Comments Yes 4 [...] your housing situation today? I have dino clementine 07/01/[address] you li [...] Orientation Straight 07/14/2022 10 :36 AM EDT Last Filed Vital Signs Vital Sign Reading Time Taken Comments Blood Pressure 118/82 11/02/2024 9:02 AM EST Pulse 70 07/29/2024 9:07 AM EST Temperature 36.6 ??C (97.8 ??F) 07/29/2024 9:07 AM ES T Respiratory Rate 16 07/29/2024 9:07 AM EST Oxygen Saturation 98% 07/29/2024 9:07 AM EST Inhaled Oxygen Concentration - - Weight 129 kg (285 lb) 07/29/2024 9:07 AM EST Height 167.6 cm (5' 6 ) 07/29/2024 9:07 AM EST Body Mass Index 46 07/29/2024 9:07 AM EST Plan of Treatment Upcoming Encounters Date Type Department Care Team (Late st Contact Info) Description 11/30/2024 9:00 AM EDT Office Visit [facility] [address] [place] [address] Corey Canseco MD [address] [place] [address] Health Maintenance Due Date Last Done Comments CT Colonography 1956 FIT DNA/Cologuard 1956 FIT 1956 FOBT 1955 Sigmoidoscopy 1955 Dental Oral Exam 10/17/2024 04/15/2024, 09/16/2023 SDOH Screening 10/21/2024 10/21/2023 Diabetes: Foot Exam 10/28/2024 10/28/2023, 10/28/2023, 10/28/2023, Additional history exists Lipid Panel 10/28/2024 10/28/2023, 09/14, 05/27/2022, Additional history exists Diabetes: Urine Protein Screening 11/12/2024 11/13/2023, 05/27/2022, 07/24/2021, Additional history exists Diabetes: Hemoglobin A1C 11/22/2024 024, 03/22/2024, 10/28/2023, Additional history exists Depression Monitoring (PHQ-9) 02/16/2025 08/18/2024, 08/18/2024 Dental Prophylaxis 05/03/2025 11/02/2024, 0 04/15/2024, 09/16/2023, Additional history exists Alcohol/Substance Use Screening 05/19/2025 05/19/2024 Depression Screening 08/18/2025 08/18/2024, 08/18/20 Tobacco Screening 11/02/2025 11/02/2024 Dental X-Ray: Bitewings 11/03/2025 11/02/19 25, 04/15/2024, 09/16/2023, Additional history exists Eye Exam 11/10/2025 11/10/2024 Dental X-Ray: Full Mouth 09/17/2026 09/16/2023 DTaP/Tdap/Td Vaccines (2 - Td or Tdap) 03/25/2031 03/25/2021 Colonoscopy 04/10/2033 04/10/2023, 02/20/2022 Colorectal Cancer Screening 04/10/2033 Zoster Vaccines Completed 11/16/2019, 09/09/2019 Pneumococcal Vaccine: 50+ Years Completed 02/05/2022, 02/07/2016 Hepatitis C Screening Completed 09/24/2022, 022 RSV Patients and Patients Aged 60 years or older Completed 06/11/2023 COVID-19 Vaccine Completed 06/10/2024, , 07/07/2022, Additional history exists Influenza Vaccine Completed 06/10/2024, , 07/07/2022, Additional history exists HIB Vaccines Aged Out No longer eligi ble based on patient's age to complete this topic HPV Vaccines Aged Out No longer eligi ble based on patient's age to complete this topic Hepatitis A Vaccines Aged Out No long er eligible based on patient's age to complete this topic Hepatitis B Vaccines Aged Out No long er eligible based on patient's age to complete this topic IPV Vaccines Aged Out No longer eligi ble based on patient's age to complete this topic Meningococcal Vaccine Aged Out No jarek rom eligible based on patient's age to complete this topic RSV under 20 months Aged Out No longe r eligible based on patient's age to complete this topic Rotavirus Vaccines Aged Out No longer eligible based on patient's age to complete this topic Procedures Procedure Name Priority Date/Time Associated Diagnosis Comments DIABETES EYE EXAM Routine 11/10/2024 9:37 AM EST INTRAORAL - PERIAPICAL EACH ADDITIONAL RADIOGRAPHIC IMAGE Routine 11/02/2024 9:00 AM EST INTRAORAL - PERIAPICAL FIRST RADIOGRAPHIC IMAGE Routine 11/02/2024 9:00 AM EST BITEWINGS - 4 RADIOGRAPHIC IMAGES Routine 11/02/2024 9:00 AM EST ORAL HYGIENE INSTRUCTIONS Routine 11/02/2024 9:00 AM EST PROPHYLAXIS - ADULT Routine 11/02/2024 9 :00 AM EST POCT GLYCATED HEMOGLOBIN, TOTAL Routine 05/25/2024 10:10 AM EDT Type 2 diabetes mellitus without complication, without long-term current use of insulin (CMS/HCC) PERIODIC ORAL EVALUATION - ESTABLISHED PATIENT Routine 04/15/2024 10:00 AM EDT ALBUMIN, RANDOM URINE W/CREATININE Routine 11/13/2023 11:13 AM EST LIPID PANEL, STANDARD Routine 10/28/2023 10:48 AM EST Type 2 diabetes mellitus without complication, without long-term current use of insulin (CMS/HCC) INTRAORAL - COMPLETE SERIES OF RADIOGRAPHIC IMAGES Routine 09/16/2023 9:00 AM EST HM COLONOSCOPY Routine 04/10/2023 12:03 PM EDT HEPATITIS C AB W/REFL TO HCV RNA, QN, PCR Routine 09/24/2022 10:33 AM EST from Last 3 Months or Most Recently Relevant to Health Maintenance Results * Diabetes Eye Exam (11/10/2024 9:37 AM EST) us Historical Provider HEALTH MAINTENANCE Final Result * (ABNORMAL) POCT HGB A1C (05/25/2024 10:10 AM EDT) Hemoglobin A1C 6.8(A) 4.0 - 6.0 % QC Media Lot # [id number] Lot# Expiration Date [id number] Blood 05/25/2024 10:1 0 AM EDT Corey Carcamo MD POINT OF CARE TEST ENTER/EDIT ORDERABLES Final Result * (ABNORMAL) Albumin, Random Urine W/Creatinine (11/13/2023 11:13 AM EST) Creatinine, Urine 46.53 mg/dL [facility] Microalbumin Urine 28.0 mg/L [facility] Microalbum Creatinine Ratio Ur 60.1(H) <30 ug/mg cr [facility] Comment:Albumin/Creatinine R atio Reference Ranges: Normal: < 30 ug/mg creatinine Microalbuminuria: 30 - 300 ug/mg creatinineClinical Albuminuria: > 300 ug/mg creatinine 11/13/2023 11:1 3 AM EST 11/13/2023 2:11 PM EST Corey Carcamo MD LAB URINE ORDERABL ES Final Result [facility] [address] [place] [phone] * (ABNORMAL) Lipid Panel, Standard (10/28/2023 10:48 AM EST) Triglycerides 251(H) <150 mg/dL [facility] Comment:Desirable Triglyceri de: less than 150 mg/dLBorderline High Triglyceride 150-199 mg/dLHigh Triglyceride: 200-499 mg/dLVery High Triglyceride: greater than or equal to 5OO mg/dL Cholesterol 146 <200 mg/dL [facility] Comment:Desirable Cholestero l: less than 200 mg/dLBorderline High Cholesterol: 200-239 mg/dLHigh Cholesterol: greater than 239 mg/dL LDL Cholesterol Calculated 62 <100 mg/dL [facility] Comment:Desirable LDL: less than 100 mg/dLNear Optimal/Above Optimal LDL: 110- 129 mg/dLBorderline High LDL: 130-159 mg/dLHigh LDL: 160-189 mg/dLVery High LDL: greater than or equal to 190 mg/dL HDL Cholesterol 34(L) >40 mg/dL [facility] Comment:Desirable HDL: great er than 40 mg/dL Note: This HDL assay may give artificially low results in patients with liver disease. Blood Venous blood specimen / Unknown 10/28/2023 10:48 AM EST 10/28/2023 2:22 PM EST Corey Carcamo MD LAB BLOOD ORDERABL ES Final Result [facility] [address] [place] [phone] * Hm Colonoscopy (04/10/2023 12:03 PM EDT) Марина Dufyf MD HEALTH MAINTENANCE Final Result * Hepatitis C Antibody with Reflex to HCV, RNA, Quantitative, Real-Time PCR (09/24/2022 10:33 AM EST) Hepatitis C Antibody NON-REACT MARK NON-REACT MARK [employer] Index <0.02 <1.00 [employer] [facility] Comment: HCV antibody was non-reactive. There is no laboratory evidence of HCV infection. In most cases, no further action is required. However, if recent HCV exposure is suspected, a test for HCV RNA (test code 25124) is suggested. For additional information please refer to http://education.Prolify/faq/GOJ45a5 (This link is being provided for informational/ educational purposes only.) 09/24/2022 10:3 3 AM EST 09/24/2022 10:33 AM EST Narrative [facility] - 09/24/2022 9:25 PM EST FASTING:NO FASTING: NO Corey Carcamo MD LAB BLOOD ORDERABL ES Final Result [facility] [address] [facility], [address] [place] [address] [facility] [address], ([address]) [place] [address] from Last 3 Months or Most Recently Relevant to Health Maintenance Insurance [facility] DUAL COMPLETE [place], [place] DENTAL - [facility] Care Teams Musculoskeletal Physiotherapist Relationship Specialty Start Date End Date ChambersCorey Grace MD [address] [place] [id number] PCP - General Internal Medicine 09/09/19
--- OUTSIDE RECORDS SUMMARY | 2024-11-22 11:16 | XMS_ITS | Encounter Summary ---
Author Organization [employer] Address [address] [place] [address] [address] [place] [address] Care Team Providers Care Plating Tank Operator Name Role Phone Corey Canseco MD Primary Care Prov ider Reason for Visit * Reason Comments Med Refill Encounter Details Date Type Department Care Team (Late Contact Info) Description 04/05/2023 Refill [facility] CH[facility] MED & PEDS [address] [place] [address] Corey Canseco MD [address] [place] [address] Mixed hyperlipidemia Social History Tobacco Use Types Packs/Day Years [...] Encounters Date Type Department Care Team (Late Contact Info) Description 11/30/2024 9:00 AM EDT Office Visit [facility] CHC MED & PEDS [address] [place] [address] Corey Canseco MD [address] [place] [address] documented as of this encounter Visit Diagnoses Diagnosis Mixed hyperlipidemia documented in this encounter Additional Health Concerns Assessment Noted Time PHQ-9 Depression Total Score: 0 12/20/19 23 9:39 AM EDT documented as of this encounter Care Teams Plating Tank Operator Relationship Specialty Start Date End Date Corey Canseco MD [address] [place] [address] PCP - General Internal Medicine 09/09/19 documented as of this encounter
--- OUTSIDE RECORDS SUMMARY | 2024-11-22 11:17 | XMS_ITS | Encounter Summary ---
Author Organization [employer] Address [address] [place] [address] 7 [place] [address] Care Team Providers Care Chisel Trimmer Name Role Phone Corey Canseco MD Primary Care Prov ider Reason for Visit * Reason Comments Med Refill Encounter Details Date Type Department Care Team ([facility] Contact Info) Description 07/04/2024 Refill [facility] CHC MED & PEDS [address] [place] [address] Corey Canseco MD [address] [place] [address] Social History Tobacco Use Types Packs/Day Years [...] Answer Date Recorded Patient Health Questionnaire-9 Score 9 05/19/2024 Patient Health Questionnaire-9 Score 9 05/19/2024 Last PHQ-9: Questionnaire Data Not on file 0 05/19/2024 Housing Stability Answer Date Recorded What is [...] Answer Date Recorded Patient Health Questionnaire-2 Score 1 05/19/2024 Sex and Gender Information Value Date Recorded Sex Assigned at Male 07/14/2022 10:36 AM EDT Legal Sex Male 10:36 AM EDT Gender Identity Male 07/14/2022 10:36 AM EDT Sexual Orientation Straight 07/14/2022 10 :36 AM EDT documented as of this encounter Miscellaneous Notes * Telephone Encounter - Corey Carcamo MD - 07/05/2024 11:47 PM EDT discontinued documented in this encounter Plan of Treatment Upcoming Encounters Date Type Department Care Team (Late st Contact Info) Description 11/30/2024 9:00 AM EDT Office Visit [facility] MED & PEDS [address] [place] [address] Corey Canseco MD [address] [place] [address] documented as of this encounter Visit Diagnoses Not on filedocumented in this encounter Additional Health Concerns Assessment Noted Time PHQ-9 Depression Total Score: 9 05/19/20 24 9:41 AM EDT documented as of this encounter Care Teams Chisel Trimmer Relationship Specialty Start Date End Date Corey Canseco MD [address] [place] [address] PCP - General Internal Medicine 09/09/19 documented as of this encounter
--- OUTSIDE RECORDS SUMMARY | 2024-11-22 11:17 | XMS_ITS | Encounter Summary ---
Author Organization [employer] Address [address] [facility] 7t [place] [address] Care Team Providers Care Marine Rigger Name Role Phone Corey Canseco MD Primary Care Prov ider Encounter Details Date Type Department Care Team (Late st Contact Info) Description 09/30/2023 Abstract [facility] CHC ADULT DENTAL [address] [place] [address] Maryana Penn, DDS [address] [place] [address] Social History Tobacco Use Types Packs/Day Years Used Date Smoking Tobacco: Never Passive Smoke Exposure: Never Smokeless Tobacco: Never Alcohol Use Standard Drinks/Week Comments Yes 4 (1 standard drink = 0.6 oz pur e alcohol) Alcohol Answer Date Recorded How often do you have a drink containing alcohol ? 3 08/27/2023 How many drinks containing a lcohol do you have on a typical day when you are drinking? 1 08/27/2023 How often do you have six or more drinks on one occasion? 0 08/27/2023 Depression Answer Date Recorded Patient Health Questionnaire-9 Score 5 08/27/2023 Patient Health Questionnaire-9 Score 5 08/27/2023 Last PHQ-9: Questionnaire Data Not on file 1 10/28/2022 Housing Stability Answer Date Recorded What is [...] Date Recorded Patient Health Questionnaire-2 Score 0 08/27/2023 Sex and Gender Information Value Date Recorded [...] 9:00 AM EDT Office Visit [facility] MED & PEDS [address] [place] [address] Corey Canseco MD [address] [place] [address] documented as of this encounter Visit Diagnoses Not on filedocumented in this encounter Additional Health Concerns Assessment Noted Time PHQ-9 Depression Total Score: 5 08/27/20 23 9:37 AM EST documented as of this encounter Care Teams Marine Rigger Relationship Specialty Start Date End Date Corey Canseco MD [address] [place] [address] PCP - General Internal Medicine 09/09/19 documented as of this encounter
--- OUTSIDE RECORDS SUMMARY | 2024-11-22 11:17 | XMS_ITS | Encounter Summary ---
Author Organization [employer] Address [address] [place] [address] Care Team Providers Care Pharmacy Resident Name Role Phone Corey Canseco MD Primary Care Prov ider Reason for Referral * Imaging (Routine) - New Request Specialty Diagnoses / Procedures Referred By Contac t Referred To Contact Radiology Diagnoses Chronic left shoulder pain Procedures MR Shoulder w/o Contrast Left Corey Canseco MD [address] [place] [address] Phone: tel: fax: [address] Phone: tel: fax: Referral ID Status Reason Start Date Expiration Date V isits Requested Visits Authorized [id number] New Request 12/02/2023 12/01/2024 1 1 Encounter Details Date Type Department Care Team (Late st Contact Info) Description 12/02/2023 Orders Only [facility] CHC MED & PEDS [address] [place] [address] Corey Canseco MD [address] [place] [address] Chronic left shoulder pain (Primary Dx) Social History Tobacco Use Types Packs/Day Years Used Date Smoking Tobacco: Never Passive Smoke Exposure: Never Smokeless Tobacco: Never Alcohol Use Standard Drinks/Week Comments Yes 4 (1 standard drink = 0.6 oz pur e alcohol) Alcohol Answer Date Recorded How often do you have a drink containing alcohol ? 3 11/30/2023 How many drinks containing a lcohol do you have on a typical day when you are drinking? 1 11/30/2023 How often do you have six or more drinks on one occasion? 0 11/30/2023 Depression Answer Date Recorded Patient Health Questionnaire-9 [...] Date Recorded Patient Health Questionnaire-2 Score 0 11/30/2023 Sex and Gender Information Value Date Recorded Sex Assigned at Male 07/14/2022 10:36 AM EDT Legal Sex Male 10:36 AM EDT Gender Identity Male 07/14/2022 10:36 AM EDT Sexual Orientation Straight 07/14/2022 10 :36 AM EDT documented as of this encounter Plan of Treatment Upcoming Encounters Date Type Department Care Team (Late st Contact Info) Description 11/30/2024 9:00 AM EDT Office Visit [facility] CHC MED & PEDS [address] [place], [place] [phone] Corey Canseco MD [address] [place] [address] Scheduled Orders Name Type Priority Associated Diagnoses Orde r Schedule MR Shoulder w/o Contrast Left Imaging Routine Chronic left shoulder pain Expected: 12/02/2023, Expires: 12/01/2024 documented as of this encounter Visit Diagnoses Diagnosis Chronic left shoulder pain- Primary Pain in joint, shoulder region documented in this encounter Additional Health Concerns Assessment Noted Time PHQ-9 Depression Total Score: 5 08/27/20 23 9:37 AM EST documented as of this encounter Care Teams Pharmacy Resident Relationship Specialty Start Date End Date Corey Canseco MD [address] [place] [address] PCP - General Internal Medicine 09/09/19 documented as of this encounter
--- OUTSIDE RECORDS SUMMARY | 2024-11-22 11:17 | XMS_ITS | Encounter Summary ---
Author Organization [employer] Address [address] [facility] [address] 7[address] [place] [address] Care Team Providers Care Developer Relations Manager Name Role Phone Corey Canseco MD Primary Care Prov ider Encounter Details Date Type Department Care Team (Late st Contact Info) Description 12/25/2023 Orders Only [facility] MEDICINE [address] [place] [address] ProviderМарина MD Social History Tobacco Use Types Packs/Day Years [...] Answer Date Recorded Patient Health Questionnaire-9 Score 6 12/24/2023 Patient Health Questionnaire-9 Score 6 12/24/2023 Last PHQ-9: Questionnaire Data Not on file 0 12/24/2023 Housing Stability Answer Date Recorded What is [...] Date Recorded Patient Health Questionnaire-2 Score 1 12/24/2023 Sex and Gender Information Value Date Recorded Sex Assigned at Male 07/14/2022 10:36 AM EDT Legal Sex Male 10:36 AM EDT Gender Identity Male 07/14/2022 10:36 AM EDT Sexual Orientation Straight 07/14/2022 10 :36 AM EDT documented as of this encounter Plan of Treatment Upcoming Encounters Date Type Department Care Team ([facility] st Contact Info) Description 11/30/2024 9:00 AM EDT Office Visit [facility] MED & PEDS [address] [place] [address] ChambersCorey Grace MD [address] [place] [address] documented as of this encounter Procedures Procedure Name Priority Date/Time Associated Diagnosis Comments CT SHOULDER WO CONTRAST LEFT Routine 01/14/2024 8:15 AM EDT HM COLONOSCOPY Routine 04/10/2023 12:03 PM EDT documented in this encounter Results * CT Shoulder w/o Contrast Left (01/14/2024 8:15 AM EDT) Anatomical Region Laterality Modality Upper Extremities, Shoulder Left Comp uted Tomography 01/14/2024 8:15 AM EDT Narrative 01/14/2024 4:15 PM EDT ? [facility] ?[address] ?[place] [address] ? CT Scan Report ? Signed ? Patient: Olive Tobias ?MR#: [id number] ?? 7 ? : 1955 ?Acct:[id number] ? Age/Sex: 68 / M ?ADM Date: 05/02/24 ? Loc: HO.CT ? Attending Dr: Jon Meza MD ? Ordering Physician: Jon Meza MD ?? Date of Service: 01/14/24 ?? Procedure(s): CT shoulder LT wo IV con ?? Accession Number(s): [id number] ? cc: Corey Canseco MD; Jon Meza MD ? EXAMINATION: ?? CT SHOULDER WITHOUT CONTRAST, LEFT ? CLINICAL INFORMATION: ?? Primary osteoarthritis, left shoulder. ? COMPARISON: ?? Radiograph dated 11/11/2023 ? TECHNIQUE: ?? Axial multidetector volumetric imaging was obtained through the ?? shoulder without intravenous contrast material. Multiplanar reformatted ?? images were submitted. ? This CT examination was performed using dose optimization techniques as ?? appropriate, variously including the following: ?? *Automated exposure control ?? *Adjustment of mA and/or kV according to patient size (this includes ?? techniques or standardized protocols for targeted exams where dose is ?? matched to indication/reason for exam; i.e. extremities or head) ?? *Use of iterative reconstruction technique ? DLP: ?? 356 mGy-cm ? FINDINGS: ?? Severe degenerative arthritis in the glenohumeral joint characterized ?? by severe joint space narrowing, large marginal osteophytes, ?? subchondral sclerosis, subchondral cystic change, and articular surface ?? remodeling. There is mild retroversion of the glenoid with posterior ?? erosion. A cluster of osseous intra-articular loose bodies is present ?? in the joint anteroinferiorly, measuring up to 1.5 cm in diameter.. ? Glenoid retroversion: 19 degrees ? Glenoid vault depth: 23 mm ? There is moderate to severe ??degenerative arthritis of the ?? acromioclavicular joint. The undersurface of the acromion is curved ?? with no subacromial spurs. Imaged portion of the clavicle is intact. ? The included portions of the ribs and chest wall are intact without ?? fractures or lesions. No significant pulmonary abnormalities in the ?? imaged portion of the lung. No axillary adenopathy. ? There is a small glenohumeral joint effusion. There is mild atrophy of ?? the supraspinatus and more marked atrophy of the teres minor. A focal ?? band of fatty replacement is present within the deltoid muscle ?? laterally. ? CT/CT shoulder LT wo IV con ?? IMPRESSION: ?? 1. Severe glenohumeral osteoarthritis with mild glenoid retroversion ?? and posterior erosion. Multiple intra-articular loose bodies. ? 2. Moderate to severe acromioclavicular osteoarthritis. ? 3. Mild supraspinatus and more marked teres minor muscle atrophy. Focal ?? band of fatty replacement in the lateral aspect of the deltoid muscle. ? Dictated By: ?Shaq Fish MD ? Signed By: ?<Electronically signed by Shaq Fish MD in OV> ? 01/14/24 1612 ? DD/ 0815 ? TD/TT: ? Express Clerk: RK ? Procedure Note Donalberto, Image - 01/14/[address] [place] [id number] [address] Scan Report Signed Patient: Iona Tobias#: [id number] 7 : 1955cct:[id number] Age/Sex: 68 / MADM Date: 01/14/24 Loc: HO.CT Attending Dr: Jon Meza MD Ordering Physician: Jon Meza MD Date of Service: 01/14/24 Procedure(s): CT shoulder LT wo IV con Accession Number(s): [id number] cc: Corey Canseco MD; Jon Meza MD EXAMINATION: CT SHOULDER WITHOUT CONTRAST, LEFT CLINICAL INFORMATION: Primary osteoarthritis, left shoulder. COMPARISON: Radiograph dated 11/11/2023 TECHNIQUE: Axial multidetector volumetric imaging was obtained through the shoulder without intravenous contrast material. Multiplanar reformatted images were submitted. This CT examination was performed using dose optimization techniques as appropriate, variously including the following: *Automated exposure control *Adjustment of mA and/or kV according to patient size (this includes techniques or standardized protocols for targeted exams where dose is matched to indication/reason for exam; i.e. extremities or head) *Use of iterative reconstruction technique DLP: 356 mGy-cm FINDINGS: Severe degenerative arthritis in the glenohumeral joint characterized by severe joint space narrowing, large marginal osteophytes, subchondral sclerosis, subchondral cystic change, and articular surface remodeling. There is mild retroversion of the glenoid with posterior erosion. A cluster of osseous intra-articular loose bodies is present in the joint anteroinferiorly, measuring up to 1.5 cm in diameter.. Glenoid retroversion: 19 degrees Glenoid vault depth: 23 mm There is moderate to severe degenerative arthritis of the acromioclavicular joint. The undersurface of the acromion is curved with no subacromial spurs. Imaged portion of the clavicle is intact. The included portions of the ribs and chest wall are intact without fractures or lesions. No significant pulmonary abnormalities in the imaged portion of the lung. No axillary adenopathy. There is a small glenohumeral joint effusion. There is mild atrophy of the supraspinatus and more marked atrophy of the teres minor. A focal band of fatty replacement is present within the deltoid muscle laterally. CT/CT shoulder LT wo IV con IMPRESSION: 1. Severe glenohumeral osteoarthritis with mild glenoid retroversion and posterior erosion. Multiple intra-articular loose bodies. 2. Moderate to severe acromioclavicular osteoarthritis. 3. Mild supraspinatus and more marked teres minor muscle atrophy. Focal band of fatty replacement in the lateral aspect of the deltoid muscle. Dictated By: Shaq Fish MD Signed By: <Electronically signed by Shaq Fish MD in OV> 01/14/24 1612 DD/ 0815 TD/TT: Express Clerk: [facility]ERE[facility] External Provider IMG CT PROCEDURES Final Result * Hm Colonoscopy (04/10/2023 12:03 PM EDT) Historical Provider HEALTH MAINTENANCE Final Result documented in this encounter Visit Diagnoses Not on filedocumented in this encounter Additional Health Concerns Assessment Noted Time PHQ-9 Depression Total Score: 6 12/24/19 24 9:28 AM EDT documented as of this encounter Care Teams Developer Relations Manager Relationship Specialty Start Date End Date ChambersCorey Grace MD [address] [place] [address] PCP - General Internal Medicine 09/09/19 documented as of this encounter
--- OUTSIDE RECORDS SUMMARY | 2024-11-22 11:17 | XMS_ITS | Encounter Summary ---
Author Organization [employer] Address [address] [facility] 7 [place] [address] Care Team Providers Care Green Chain Operator Name Role Phone Corey Canseco MD Primary Care Prov ider Encounter Details Date Type Department Care Team (Late st Contact Info) Description 06/01/2024 Orders Only [facility] CHC MED & PEDS [address] [place] [address] Corey Canseco MD [address] [place] [address] Social History Tobacco Use Types Packs/Day Years [...] 9:00 AM EDT Office Visit [facility] MED & PEDS [address] [place] [address] Corey Canseco MD [address] [place] [address] documented as of this encounter Visit Diagnoses Not on filedocumented in this encounter Additional Health Concerns Assessment Noted Time PHQ-9 Depression Total Score: 9 05/19/20 24 9:41 AM EDT documented as of this encounter Care Teams Green Chain Operator Relationship Specialty Start Date End Date Corey Canseco MD [address] [place] [address] PCP - General Internal Medicine 09/09/19 documented as of this encounter
== END 2024-11-22 10:38 | disposition home or self-care (01) ==
LOC: HO.HCS 09:53
PROVIDERS: PCP Internal Medicine; Visit Provider Nurse Practitioner Family
DX: I48.91 Unspecified atrial fibrillation (principal); I49.3 Ventricular premature depolarization
CPT/HCPCS: 93010

== ENCOUNTER → 2024-11-22 09:52 | Outpatient (BNVA) | payer MEDICARE, SELFPAY | PROVIDERS: PCP Internal Medicine; Visit Provider Nurse Practitioner Family | DX: I48.91 Unspecified atrial fibrillation (principal); I49.3 Ventricular premature depolarization; I45.19 Other right bundle-branch block | CPT/HCPCS: 93005 ==

== ENCOUNTER 2024-11-28 09:04 | Outpatient (AMB) | payer MEDICARE, SELFPAY ==
--- NOTE | 2024-11-28 09:08 | A.OFFVIS_ITS ---
Vital Signs 11/28/24 09:09 Height 5 ft 7 in Weight 292 lb 12.382 oz BMI 45.8 BP 100/72 Blood Pressure Location Lt brachial Position Sitting Pulse 77 Pulse Source Monitor Intake Visit Reasons: 6 mth f/up/r/s-10/26 Allergies iron Allergy (Severe, Verified 11/28/24 09:13) Rash ( from oral supplement) Medication List - Last Reconciled 11/28/24 by UMANG Lowery apixaban (Eliquis) 5 mg PO BID atorvastatin 40 mg PO DAILY blood sugar diagnostic (FreeStyle Lite Strips) As directed celecoxib 200 mg PO DAILY PRN cetirizine 10 mg PO DAILY cholecalciferol (vitamin D3) 25 mcg PO DAILY cyanocobalamin (vitamin B-12) (Vitamin B-12) 1,000 mcg PO DAILY dulaglutide (Trulicity) mg subcut QWEEK empagliflozin (Jardiance) 25 mg PO DAILY flecainide 50 mg PO Q12H gabapentin 300 mg PO TID lancets (Easy Touch Twist Lancets) As directed lisinopril 10 mg PO DAILY metoprolol tartrate 12.5 mg (1/2 x 25 mg) PO BID 90 days montelukast 10 mg PO BEDTIME tamsulosin 0.4 mg PO BEDTIME HPI HPI 6 mth f/up/r/s-10/26: Details: Olive is a 69-year-old male with past medical history of morbid obesity, hyperlipidemia, nonobstructive coronary artery disease, paroxysmal atrial fibrillation who now presents for follow-up. Today he reports went back into atrial fibrillation at the end of October. He noticed increasing shortness of breath with activity and fatigue. He has a cardio mobile device and was able to obtain strips that show possible atrial fibrillation. His last known sinus rhythm strip was mid October. He did come for an office EKG last week and was found to have atrial fibrillation. He was restarted on flecainide at that time. He continues to take the flecainide and reduce dose of metoprolol. He does not like how the flecainide makes him feel and says it gives him increasing fatigue. He reduced his alcohol intake down to 3 times a week. He has not been able to lose significant weight. Tries to r emain active but right now his shortness of breath is interfering. He has no chest discomfort at rest or with activity. He does not notice the heart palpitations. No PND, orthopnea or edema. No lightheadedness, presyncope, syncope. 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 He wears CPAP at night. He is taking all meds as directed. He confirms that he has not missed any doses of his Eliquis in the last month. [facility], [facility] Medical History Family history of anesthesia complication Arthritis History of cardioversion Atrial fibrillation Asthma HTN (hypertension) Elevated cholesterol Diabetes Sciatica Sleep apnea Shoulder pain with history of repair of rotator cuff Surgical History H/O colonoscopy History of surgical removal of ganglion cyst Hx of rotator cuff surgery History of cardiac cath Hx of elbow surgery History of carpal tunnel release Hx of eye surgery Hx of tonsillectomy Hx of hernia repair Hx of knee surgery Family History Father Heart disease HTN (hypertension) Mother Atrial fibrillation Sister Diabetes Social History Household Members: Spouse Housing: House Are you a primary director of primary care to a significant other at home: No Do you presently have visiting nurse or other home services: No Alcohol intake: current Alcohol intake frequency: does not drink Patient Tobacco Use Status: Never used Tobacco Substance Use Type: Marijuana service: No Current 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 status: retired Review of Systems Const All systems reviewed & are unremarkable except as noted in HPI and below Reports fatigue ENT Denies dizziness Card Denies chest pain, Denies chest pain at rest, Denies chest pain with activity, Denies rapid heart rate, Denies pedal edema, Denies edema, Denies leg edema, Denies lightheadedness, Denies palpitations, Reports dyspnea, Reports dyspnea on exertion and Denies orthopnea Resp Denies cough, Reports dyspnea and Reports dyspnea on exertion GI Denies hematochezia and Denies change in stool character Musc Denies abnormal gait, Denies limited range of motion, Denies muscle cramps, Denies muscle weakness, Denies numbness, Denies radiating pain into limb, Denies stiffness and Denies tingling Neuro Denies abnormal gait, Denies dizziness, Denies numbness and Denies tingling Endo Reports fatigue and Denies palpitations Physical Exam Vital Signs: Last Vital Signs Pulse 77 11/28/24 09:09 BP 100/72 11/28/24 09:09 BMI result Body Mass Index 45.8 Const General: cooperative, healthy appearing, comfortable and no acute distress Orientation/consciousness: patient oriented x3 Neck Neck: Yes normal visual inspection and Yes no JVD Resp Effort & Inspection: normal respiratory effort Auscultation: clear to auscultation bilaterally, no rales, no rhonchi and no wheezes Cardio Rate: regular rate Rhythm: regular rhythm Heart sounds: S1 normal heart sound present, S2 normal heart sound present, no murmurs and no rubs Neuro General: patient oriented x3 Extrem General: Yes normal to inspection, No no pedal edema and No calf tenderness Psych Appearance: grossly normal Mental Status: mental status grossly normal Speech and movement: Normal speech and movement present Office Procedures EKG Details: Today, read by me, afib, right axis, septal Q wave, rate 77, Qtc 398ms [id number], Complete Assessment & Plan Assessment & Plan (1) Atrial fibrillation: Comment: dx 02/2022-in for colonoscopy-afib noted, colonoscopy canceled, sent to [facility] Code(s): I48.91 - Unspecified atrial fibrillation Category: Medical Plan: History of paroxysmal atrial fibrillation. Last echo 03/24/2022 showed normal EF, mild LVH left atrium moderately dilated, right atrium not well visualized. He previously had bradycardia while on flecainide and it was stopped. He now reports recurrent symptomatic atrial fibrillation for the last 2+ weeks. He was restarted on flecainide 50 mg b.i.d. last week and metoprolol cut back to 12.5 mg b.i.d.. He has been on anticoagulation without interruption right along. EKG done today shows atrial fibrillation, rate 77, QTC 398 milliseconds. Will arrange for cardioversion with Dr. Akhtar this week. Will refer back to electrophysiology. He was seen by Dr. Cotto in the past and he was medically managed at that time. Since then he has greatly reduced his alcohol intake. He has sleep apnea which is being treated with CPAP. Cardiology office visit 2-3 weeks post cardioversion. (2) Coronary artery disease: Code(s): I25.10 - Atherosclerotic heart disease of [place] coronary artery without angina pectoris Category: Medical Plan: Patient has chronic shortness of breath with exertion. He is morbidly obese. He did undergo a nuclear stress test 03/24/2022 which was equivocal for possible apical and distal lateral wall ischemia. He then underwent a CTA of the coronary arteries on 07/25/2022 which showed mid LAD 50% stenosis, minimal calcifications of the left main, left circumflex and RCA. He then underwent a cardiac catheterization on 09/19/2022 which showed proximal LAD 30-40% stenosis. Nuclear stress test was felt to be false positive. His shortness of breath is not felt to be an anginal symptom. He has shortness of breath likely related to his morbid obesity and deconditioning. He is not on aspirin as he is on Eliquis. He is on atorvastatin 40 mg daily. Labs are followed by his PCP. [place] LDL goal less than 70. Will forward this note to PCP for review. He is on metoprolol. Signs and symptoms of angina reviewed with him. Emergency care if ever needed for symptoms (3) History of cardiac cath: Comment: 09/19/2022, left main, left circumflex, RCA all normal, mild proximal LAD stenosis 30-40%. Code(s): Z98.890 - Other specified postprocedural states Category: Surgical Plan: As above (4) Hyperlipidemia: Code(s): E78.5 - Hyperlipidemia, unspecified Category: Medical Plan: [place] LDL goal less than 70. Continue atorvastatin. Labs followed by PCP Plan Time spent on chart review, documentation, interview and assessment Orders: Orders Cardioversion 12/02/24 I48.91 - Unspecified atrial fibrillation Referrals Cardiac Electrophysiology Referral I48.91 - Unspecified atrial fibrillation Coding Level of Care Code Est Pt Level 4 (95551) Complex EM visit Add On G2211 Diagnoses Atrial fibrillation I48.91 Coronary artery disease I25.10 History of cardiac cath Z98.890 Hyperlipidemia E78.5 CPT Codes EKG - CPT: 63430-[id number], Complete ([id number]) Time Spent (min) 36
[2024-11-28 09:09] VITALS: BP 100/72; PULSE 77; BMI 45.8
== END 2024-11-28 09:51 | disposition home or self-care (01) ==
LOC: HO.HCS 09:04
PROVIDERS: PCP Internal Medicine; Visit Provider Nurse Practitioner Family
DX: I48.91 Unspecified atrial fibrillation (principal); I25.10 Atherosclerotic heart disease of native coronary artery without angina pectoris; Z98.890 Other specified postprocedural states; E78.5 Hyperlipidemia, unspecified
CPT/HCPCS: 93010; 99214; G2211

== ENCOUNTER → 2024-11-28 09:04 | Outpatient (BNVA) | payer MEDICARE, SELFPAY | PROVIDERS: PCP Internal Medicine; Visit Provider Nurse Practitioner Family | DX: I25.10 Atherosclerotic heart disease of native coronary artery without angina pectoris (principal); I48.91 Unspecified atrial fibrillation; E78.5 Hyperlipidemia, unspecified; Z98.890 Other specified postprocedural states; R94.31 Abnormal electrocardiogram [ECG] [EKG] | CPT/HCPCS: 93005; 99212 ==

== ENCOUNTER 2024-12-02 10:09 | Outpatient (REF) | payer MEDICARE, SELFPAY ==
[2024-12-02 14:11] LABS: MANUAL DIFF FLAG NO
[2024-12-02 14:20] LABS: Basophils Percent Auto 0.4 % (0-2); Eosinophils Absolute Auto 0.2 X10*3/uL (0.0-0.4); Eosinophils Percent Auto 2.4 % (0-4); Hemoglobin 15.7 g/dl (14.0-18.0); Imm Gran Abs Auto 0.04 X10*3/uL (0.00-0.03); Imm Gran Pct Auto 0.6 % (0.0-0.4); Lymphocytes Percent Auto 14.1 % (20-40); Mean Corpuscular HGB Conc 31.4 g/dl (31.0-36.0); Mean Corpuscular Hemoglobin 25.6 pg (27.0-33.0); Mean Corpuscular Volume 81.4 fL (80.0-98.0); Mean Platelet Volume 9.9 fL (9.4-12.4); Monocytes Absolute Auto 0.7 X10*3/uL (0.1-1.2); Monocytes Percent Auto 10.3 % (2-11); Neutrophils Absolute Auto 5.1 x10*3/uL (2.0-8.3); Neutrophils Percent Auto 72.2 % (45-73); Platelet Count 177 X10*3/uL (160-400); Red Blood Count 6.14 X10*6/uL (4.60-5.80); Red Cell Distribution Width 17.4 % (11.0-16.0); White Blood Count 7.1 X10*3/uL (4.8-10.8)
[2024-12-02 14:44] LABS: Alanine Aminotransferase 20 U/L (0-40); Albumin Level 4.1 g/dL (3.5-5.0); Alkaline Phosphatase 90 U/L (39-117); Anion Gap 13 (12-20); Aspartate Amino Transferase 21 U/L (5-37); Bilirubin Total 0.8 mg/dL (0.0-1.0); Blood Urea Nitrogen 16 mg/dL (9-16); Calcium 9.1 mg/dL (8.4-10.2); Carbon Dioxide 23 mmol/L (22-29); Chloride 108 mmol/L (96-108); Cholesterol 119 mg/dL (<200); Estimated Glomerular Filt Rate > 60; Glucose Random 114 mg/dL (60-115); HDL Cholesterol 28 mg/dL (>40); LDL Cholesterol Calculated 69 mg/dL (<100); Potassium 4.5 mmol/L (3.3-5.1); Sodium 139 mmol/L (135-145); Total Protein 8.2 g/dL (6.5-8.0); Triglycerides 114 mg/dL (<150)
[2024-12-02 14:51] LABS: Creatinine Urine 84.75 mg/dL; Microalbum/Creatinine Ratio Ur 9.4 ug/mg cr (<30)
[2024-12-02 15:02] LABS: TSH reflex Free T4 1.17 uIU/mL (0.32-4.0)
== END 2024-12-02 10:10 | disposition home or self-care (01) ==
LOC: HO.CHCLDS 10:09
PROVIDERS: Visit Provider Internal Medicine
DX: Z13.89 Encounter for screening for other disorder (principal)
CPT/HCPCS: 36415; 80053; 80061; 82043; 82570; 84443; 85025

== ENCOUNTER 2024-12-02 12:32 | Day surgery (SDC) | payer MEDICARE, SELFPAY ==
--- NOTE | 2024-12-01 09:01 | HO.ANESPROP2 ---
Documented by User: Manisha Salazar NP 12/01/24 09:05 HPI - Anesthesia Eval Consult details Narrative: 69yo M for Cardioversion Eliquis for afib s/p total shoulder 06/2024 with GA-ETT 7 Anesthesia Pre-Procedure Meds Is the patient on any of the following meds?: GLP1/DPP4 and SGLT2 Inhib PMFSH Active Problems Active Problems: All Active Problems Status post total replacement of left shoulder (Acute) Preop cardiovascular exam (Acute) PAD (peripheral artery disease) (Acute) Bone mass (Acute) Osteoarthritis of left shoulder (Acute) Hyperlipidemia (Acute) Hemorrhoids (Acute) Coronary artery disease (Acute) Abnormal stress test (Acute) Equivocal stress test (Acute) Shortness of breath (Acute) Atrial fibrillation (Acute) Encounter for screening colonoscopy (Acute) History of cardiac cath (Acute) Atrial fibrillation (Acute) Past Medical History Medical History Family history of anesthesia complication Arthritis History of cardioversion Atrial fibrillation Asthma HTN (hypertension) Elevated cholesterol Diabetes Sciatica Sleep apnea Shoulder pain with history of repair of rotator cuff Family History Family History Father Heart disease HTN (hypertension) Mother Atrial fibrillation Sister Diabetes Family history of problems with anesthesia: No Surgical History Surgical History History of surgery H/O colonoscopy History of surgical removal of ganglion cyst Hx of rotator cuff surgery History of cardiac cath Hx of elbow surgery History of carpal tunnel release Hx of eye surgery Hx of tonsillectomy Hx of hernia repair Hx of knee surgery History of Problems with Anesthesia: No Social History Social History Household Members: Spouse Housing: House Are you a primary child care centre director to a significant other at home: No Do you presently have visiting nurse or other home services: No Alcohol intake: current Alcohol intake frequency: does not drink Patient Tobacco Use Status: Former Tobacco user Use of substances other than those prescribed or required for medical reasons: Yes Substance Use Type: Marijuana Substance Use Type Other:: gummies Advance Directives: No Advance Directives Information Provided: Yes Recently lost weight without trying: No Nutrition Risks: No Nutritional Risk Poor oral hygiene: No service: No Current 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 status: retired Meds Allergies Allergy/AdvReac Type Severity Reaction Status Date / Time iron Allergy Severe Rash ( Verified 11/28/24 09:13 from oral supplement) Home Medications ?Medication ?Instructions ?Recorded ?Confirmed ?Last Taken ?Type atorvastatin 40 mg tablet 40 mg PO DAILY 02/20/22 11/28/24 12/02/24 History cholecalciferol (vitamin D3) 25 25 mcg PO DAILY 02/20/22 11/28/24 12/02/24 History mcg (1,000 unit) capsule cyanocobalamin (vitamin B-12) 1,000 mcg PO DAILY 02/20/22 11/28/24 12/02/24 History 1,000 mcg tablet (Vitamin B-12) lisinopril 10 mg tablet 10 mg PO DAILY 02/20/22 11/28/24 12/02/24 History montelukast 10 mg tablet 10 mg PO BEDTIME 02/20/22 11/28/24 07/12/24 History apixaban 5 mg tablet (Eliquis) 5 mg PO BID 04/24/22 11/28/24 12/02/24 History cetirizine 10 mg tablet 10 mg PO DAILY 07/02/22 11/28/24 12/02/24 History tamsulosin 0.4 mg capsule 0.4 mg PO BEDTIME 06/07/24 11/28/24 07/12/24 History blood sugar diagnostic (FreeStyle #10 ea 09/19/24 11/28/24 Unknown History Lite Strips) dulaglutide 1.5 mg/0.5 mL mg subcut QWEEK 09/19/24 11/28/24 11/25/24 History subcutaneous pen injector (Trulicity) lancets 33 gauge (Easy Touch Twist #100 ea 09/19/24 11/28/24 Unknown History Lancets) empagliflozin 25 mg tablet 25 mg PO DAILY 09/26/24 11/28/24 11/29/24 History (Jardiance) celecoxib 200 mg capsule 200 mg PO DAILY PRN Pain (Scale 11/22/24 11/28/24 12/01/24 History Score 4-6) gabapentin 300 mg capsule 300 mg PO TID 11/28/24 11/28/24 12/02/24 History azelastine 12/02/24 12/02/24 Unknown History Exam Pertinent Lab Results Pertinent Lab Results: Laboratory Tests 07/14/24 06:42 WBC 9.4 Hgb 12.6 L Hct 38.1 L Plt Count 145 L Sodium 135 Potassium 4.3 Chloride 104 Carbon Dioxide 20 L BUN 17 H Creatinine 0.80 Narrative Narrative: EKG 11/2024 Details: afib, right axis, septal Q wave, rate 77, Qtc 398ms Per 09/2023 cardiology note: nuclear stress test 03/24/2022 which was equivocal for possible apical and distal lateral wall ischemia. He then underwent a CTA of the coronary arteries on 07/25/2022 which showed mid LAD 50% stenosis, minimal calcifications of the left main, left circumflex and RCA. He then underwent a cardiac catheterization on 09/19/2022 which showed proximal LAD 30-40% stenosis. Nuclear stress test was felt to be false positive. ECHO 2021 Conclusions: - 1. Normal LV systolic function mild LVH 2. Moderate left atrial enlargement 3. Normal cardiac valvular Doppler 4. Mildly dilated ascending aorta at 3.9 cm 5. No gross pericardial effusion Assessment and Plan Assessment Anesthesia Assessment: Chart Reviewed Final Anesthetic Review Family History of Problems with Anesthesia: No History of Problems with Anesthesia: No Documented by User: Roz Hammer MD 12/02/24 13:18 [facility] Past Medical History Medical History Family history of anesthesia complication Arthritis History of cardioversion Atrial fibrillation Asthma HTN (hypertension) Elevated cholesterol Diabetes Sciatica Sleep apnea Shoulder pain with history of repair of rotator cuff Family History Family History Father Heart disease HTN (hypertension) Mother Atrial fibrillation Sister Diabetes Surgical History Surgical History History of surgery H/O colonoscopy History of surgical removal of ganglion cyst Hx of rotator cuff surgery History of cardiac cath Hx of elbow surgery History of carpal tunnel release Hx of eye surgery Hx of tonsillectomy Hx of hernia repair Hx of knee surgery Social History Social History Household Members: Spouse Housing: House Are you a primary child care centre director to a significant other at home: No Do you presently have visiting nurse or other home services: No Alcohol intake: current Alcohol intake frequency: does not drink Patient Tobacco Use Status: Former Tobacco user Use of substances other than those prescribed or required for medical reasons: Yes Substance Use Type: Marijuana Substance Use Type Other:: gummies Advance Directives: No Advance Directives Information Provided: Yes Recently lost weight without trying: No Nutrition Risks: No Nutritional Risk Poor oral hygiene: No service: No Current 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 status: retired Meds Allergies Allergy/AdvReac Type Severity Reaction Status Date / Time iron Allergy Severe Rash ( Verified 11/28/24 09:13 from oral supplement) Home Medications ?Medication ?Instructions ?Recorded ?Confirmed ?Last Taken ?Type atorvastatin 40 mg tablet 40 mg PO DAILY 02/20/22 11/28/24 12/02/24 History cholecalciferol (vitamin D3) 25 25 mcg PO DAILY 02/20/22 11/28/24 12/02/24 History mcg (1,000 unit) capsule cyanocobalamin (vitamin B-12) 1,000 mcg PO DAILY 02/20/22 11/28/24 12/02/24 History 1,000 mcg tablet (Vitamin B-12) lisinopril 10 mg tablet 10 mg PO DAILY 02/20/22 11/28/24 12/02/24 History montelukast 10 mg tablet 10 mg PO BEDTIME 02/20/22 11/28/24 07/12/24 History apixaban 5 mg tablet (Eliquis) 5 mg PO BID 04/24/22 11/28/24 12/02/24 History cetirizine 10 mg tablet 10 mg PO DAILY 07/02/22 11/28/24 12/02/24 History tamsulosin 0.4 mg capsule 0.4 mg PO BEDTIME 06/07/24 11/28/24 07/12/24 History blood sugar diagnostic (FreeStyle #10 ea 09/19/24 11/28/24 Unknown History Lite Strips) dulaglutide 1.5 mg/0.5 mL mg subcut QWEEK 09/19/24 11/28/24 11/25/24 History subcutaneous pen injector (Trulicity) lancets 33 gauge (Easy Touch Twist #100 ea 09/19/24 11/28/24 Unknown History Lancets) empagliflozin 25 mg tablet 25 mg PO DAILY 09/26/24 11/28/24 11/29/24 History (Jardiance) celecoxib 200 mg capsule 200 mg PO DAILY PRN Pain (Scale 11/22/24 11/28/24 12/01/24 History Score 4-6) gabapentin 300 mg capsule 300 mg PO TID 11/28/24 11/28/24 12/02/24 History azelastine 12/02/24 12/02/24 Unknown History Exam Airway Mallampati Class: III TM Dist: <=3cm Neck ROM: Limited Heart: afib Lungs: cta Assessment and Plan Final Anesthetic Review NPO: Yes ASA Class: III Final Preanesthetic Review: No Changes in Pt Med Stat, Meds/Allgs Chart Reviewed, Consent Obtained/Reviewed and Anes Risks/Benef Reviewed Patient Risk: Intermediate Procedure Risk: Low Anesthetic Plan Anesthetic Plan: MAC: Disposition: Standard PACU
--- NOTE | 2024-12-02 | ECG_ITS ---
Test Reason : post cardioversion Blood Pressure : */* mmHG Vent. Rate : 84 BPM Atrial Rate : 84 BPM P-R Int : 196 ms QRS Dur : 104 ms QT Int : 358 ms P-R-T Axes : -12 76 24 degrees QTcB Int : 423 ms Sinus rhythm with frequent Premature ventricular complexes Low voltage QRS Septal infarct (cited on or before 24-Feb-2022) Abnormal ECG When compared with ECG of 24-Jun-2022 14:56, Premature ventricular complexes are now Present SC interval has decreased QRS axis Shifted left Referred By: Sp Akhtar Electronically Signed By: Sp Akhtar
[2024-12-02 12:52] VITALS: BMI 45.7
[2024-12-02 13:06] VITALS: BP 125/64; PULSE 96; RESP 16; TEMP 36; O2SAT 98
[2024-12-02] MEDS: Lactated Ringers 1,000 ML 100 ML IVCONT (13:15)
[2024-12-02 13:20] LABS: Glucose, Whole Blood 120 mg/dL (60-115)
--- NOTE | 2024-12-02 14:09 | MHC.SHP ---
Pre-Procedural Eval Section A - 24 Hr Update-Section A only Date of Service: 12/02/24 The patient is an INPATIENT: No The patient has been examined within 24 hours of the surgical procedure. The History & Physical has been completed within 30 days and I have reviewed it.: Yes Section B - Complete if H&P > 30 days Chief Complaint: Other persistent atrial fibrillation Details of Present Illness: For cardioversion Allergies: Allergies Allergy/AdvReac Type Severity Reaction Status Date / Time iron Allergy Severe Rash ( Verified 11/28/24 09:13 from oral supplement) Plan Diagnosis/Plan: Unchanged I have reviewed the history and physical and performed a pertinent physical examination on my patient. No changes have occurred unless specified. Time Spent With Patient Time: Total time managing care of this patient today ____ minutes.
[2024-12-02 14:28] VITALS: BP 126/85; PULSE 77; RESP 17; TEMP 36.6; O2SAT 98
--- NOTE | 2024-12-02 14:28 | HO.CARDIVERS ---
Cardioversion Procedure Note Cardioversion Date of Procedure: 12/02/24 Ordering Provider: Candice Houston NP Performing Provider: Sp Akhtar MD Indication for Procedure: Symptomatic Afib Performed with Transesophageal Echo: No History: 69 male with Afib and JOYNER and fatigue. Consent: Verbal and Written consent was obtained from the patient before starting. The patient was made aware of the risk of stroke, skin burn, arrhythmia and failure to achieve sinus rhythm. Procedure: After consent obtained, defib pads were attached and the patient was sedated by the anesthesia team. Once adequate sedation achieved, the patient was given 2 shocks of 200 J but he continued to stay in Afib. We placed a bag of saline over the pad and applied pressure and gave 3rd shock and he converted to sinus. Complications: No acute. Recommendations: c/w Flecainide, metoprolol and Apixaban.
[2024-12-02 14:30] VITALS: BP 124/77; PULSE 79; RESP 17; O2SAT 98
[2024-12-02 14:35] VITALS: BP 126/86; PULSE 87; RESP 16; O2SAT 98
[2024-12-02 14:40] VITALS: BP 121/66; PULSE 78; RESP 16; O2SAT 97
[2024-12-02 14:55] VITALS: BP 123/71; PULSE 80; RESP 16; TEMP 36.6; O2SAT 98
== END 2024-12-02 15:44 | disposition home or self-care (01) ==
PROVIDERS: PCP Internal Medicine; Visit Provider Internal Medicine Cardiovascular Disease
PROC: 5A2204Z Restoration of Cardiac Rhythm, Single (ICD-10-PCS; principal; 2024-12-02 14:00)
DX: I48.19 Other persistent atrial fibrillation (principal); R06.09 Other forms of dyspnea; R53.83 Other fatigue; I48.0 Paroxysmal atrial fibrillation; I10 Essential (primary) hypertension; E78.5 Hyperlipidemia, unspecified; I25.10 Atherosclerotic heart disease of native coronary artery without angina pectoris; E11.9 Type 2 diabetes mellitus without complications; E66.01 Morbid (severe) obesity due to excess calories; Z68.42 Body mass index [BMI] 45.0-49.9, adult; J45.909 Unspecified asthma, uncomplicated; G47.33 Obstructive sleep apnea (adult) (pediatric); Z79.01 Long term (current) use of anticoagulants; Z79.85 Long-term (current) use of injectable non-insulin antidiabetic drugs; Z79.899 Other long term (current) drug therapy; Z99.89 Dependence on other enabling machines and devices; Z91.09 Other allergy status, other than to drugs and biological substances; Z98.890 Other specified postprocedural states
CPT/HCPCS: 36415; 80053; 80061; 82043; 82570; 82947; 84443; 85025; 92960; 93005; J2003; J2704

== ENCOUNTER → 2024-12-02 12:32 | Outpatient (BNV) | payer MEDICARE, SELFPAY | PROVIDERS: PCP Internal Medicine; Visit Provider Internal Medicine Cardiovascular Disease | DX: I48.91 Unspecified atrial fibrillation (principal); I49.3 Ventricular premature depolarization | CPT/HCPCS: 92960; 93010 ==

== ENCOUNTER 2024-12-14 08:56 | Outpatient (REF) | payer MEDICARE, SELFPAY ==
--- NOTE | ~2024-12-14 | MR_ITS ---
EXAMINATION: MR LUMBAR SPINE WITHOUT CONTRAST CLINICAL INFORMATION: Back pain. COMPARISON: None available. TECHNIQUE: MRI of the lumbar spine was obtained using routine sequences without contrast. FINDINGS: Last rib-bearing vertebra labeled T12. There is a bone marrow STIR signal in the superior endplate of L5 and extending into the posterior elements and to a lesser extent the posterior elements of L4 and L3. There is a grade 1 anterolisthesis at L4-5. There is bone marrow inhomogeneity. There is the marginal osteophyte formation and disc desiccation more conspicuous at L4-5. Conus medullaris ends at pedicle of L1 with normal signal. T12-L1: No disc herniation. No neuroforamina stenosis. L1-2: Broad-based disc bulging. Facet joint and ligamentum flavum hypertrophy. No compression upon neural elements. L2-3: Broad-based disc bulging. Facet joint and ligamentum flavum hypertrophy. Reduced AP diameter of the thecal sac and the neural foramina. L3-4: Broad-based disc bulging. Facet joint and ligamentum flavum hypertrophy. Reduced AP diameter of the thecal sac and neuroforamina. L4-5: Broad-based disc bulging. Facet joint and ligamentum flavum hypertrophy. There is a 5 mm fluid signal characteristic lesion within the medial aspect of the right facet joint and anterior to ligamentum flavum extending into the central spinal canal. There is CSF effacement of the thecal sac and central spinal canal stenosis compressing the neural elements of the thecal sac. There is bilateral neuroforamina stenosis encroaching the L4 exiting nerve roots. L5-S1: Broad-based disc bulging. Facet joint hypertrophy. There is right neuroforamina and stenosis on a degenerative basis likely compressing the right L5 exiting nerve root. MR/MR lumbar spine wo con IMPRESSION: 5 mm synovial cyst, right L4-5 facet joint and spondylosis with grade 1 anterolisthesis at L4-5 compressing the neural elements of the thecal sac and the L4 exiting nerve roots. Multilevel lumbar spondylosis L2-3 to L5-S1 likely encroaching the neural elements. Right foramen stenosis, L5-S1, compressing the right L5 exiting nerve root on a degenerative basis. Electronically signed by: Bryon Becerra MD 12/14/2024 11:35 AM EDT RP
--- NOTE | ~2024-12-14 | XR_ITS ---
EXAMINATION: XR SCREENING FILM FOR MR HISTORY: ORBIT COMPARISON: There are no prior studies for comparison. FINDINGS: Three views of the orbits are submitted. There is no radiopaque foreign body. The visualized paranasal sinuses are clear. XR/XR pre mri screening IMPRESSION: No radiopaque foreign body is identified. Electronically signed by: Blaze Brandt MD 12/14/2024 09:30 AM EDT
--- OUTSIDE RECORDS SUMMARY | 2024-12-14 09:40 | XMS_ITS | Clinical Summary ---
Author Organization [email or web address] Address [address] [place] [address] [address] [place] [address] Care Team Providers Care Preparole Counseling Aide Name Role Phone Corey Canseco MD Primary [...] one to two times daily 021 Active pseudoephedrine ER (Sudafed-12 Hour) 120 MG [...] stripIndications: Type 2 diabetes mellitus without complications (CMS/HCC) TEST BLOOD SUGAR THREE TIMES DAILY 100 strip 11 Active tobramycin-dexAME THasone (Tobradex) ophthalmic suspension INSERT ONE DROP IN THE AFFECTED EYE (S) EVERY 6 HOURS 5 mL 3 024 Active albuterol (Ventolin HFA) 108 (90 Base) MCG/ACT inhaler INHALE TWO PUFFS EVERY 4 TO 6 HOURS NEEDED 18 g 5 024 Active montelukast (Singulair) 10 MG tablet TAKE ONE TABLET EVERY EVENING 90 tablet 3 Active lisinopril 10 MG tabletIndications :Primary hypertension TAKE 1 TABLET EVERY MORNING 30 tablet 6 024 Active Easy Touch Lancets 33G/Twist miscIndications:T ype 2 diabetes mellitus without complications (CMS/HCC) TEST BLOOD SUGAR THREE TIMES DAILY 100 each Active cholecalciferol (Vitamin D-3) 25 MCG tabletIndications [...] EVERY NIGHT AT BEDTIME 30 capsule 3 Active atorvastatin (Lipitor) 40 MG tabletIndications :Mixed hyperlipidemia TAKE ONE TABLET EVERY MORNING 90 tablet 1 Active Jardiance 25 MGIndications:Typ e 2 diabetes mellitus without complication, without long-term current use of insulin (CMS/HCC) TAKE ONE TABLET EVERY MORNING 90 tablet 1 Active Dulaglutide (Trulicity) 3 MG/0.5ML solution auto-injectorIndi cations:Type 2 diabetes mellitus without complication, without long-term current use of insulin ([facility]) Inject 3 mg under the skin 1 (one) time per week. 3 mL 3 Active gabapentin (Neurontin) 300 MG capsule Take 1 capsule (300 mg) by mouth 3 times daily. 270 capsule 3 025 2025 Active celecoxib (CeleBREX) 200 MG capsuleIndication s:Pain Take 1 tab as needed for pain up to twice daily; take with food 90 capsule 1 025 Active Eliquis 5 MG tablet TAKE ONE TABLET IN THE MORNING AND EVENING 60 tablet Active celecoxib (CeleBREX) 200 MG capsuleIndication s:Pain Take 1 tab as needed for pain up to twice daily; take with food 40 capsule 023 2024 Discontinued(R eorder (will not trigger notification to Pharmacy)) atorvastatin (Lipitor) 40 MG tabletIndications :Mixed hyperlipidemia TAKE ONE TABLET EVERY MORNING 90 tablet 1 024 2024 Discontinued Jardiance 25 MGIndications:Typ e 2 diabetes mellitus without complication, without long-term current use of insulin ([facility]) TAKE ONE TABLET EVERY MORNING 90 tablet 1 024 2024 Discontinued gabapentin (Neurontin) 300 MG capsule TAKE ONE CAPSULE THREE TIMES DAILY IN THE MORNING, EVENING AND BEDTIME 90 capsule 1 025 2024 Discontinued(R eorder (will not trigger notification to Pharmacy)) Dulaglutide (Trulicity) 1.5 MG/0.5ML solution auto-injectorIndi cations:Type 2 diabetes mellitus without complication, without long-term current use of insulin ([facility]) Inject 1.5 mg under the skin 1 (one) time per week. 2 mL 11 025 2024 Discontinued(T herapy completed) apixaban (Eliquis) 5 MG tablet Take 1 tablet (5 mg) by mouth 2 times daily. 60 tablet 025 2024 Discontinued Active Problems Problem Noted Date Diagnosed Date Chronic bilateral low back pain with right-sided sciatica 11/30/2024 Assessment & Plan (11/30/2024 11:39 AM EDT): Patient has tried home remedies withut improvement in symptoms, will order MRI, concerning sign of buttock numbness, will also place ortho referral Neuropathic pain 07/29/2024 Assessment & Plan (07/29/2024 [...] Mets >4 Blood work done today at [facility] Told to continue oral antyhypertensives the day [...] (03/07/2024 2:26 PM EDT): [facility] Assessment & Plan (11/30/2023 10:07 PM [...] and alcohol use. Patient will benefit from [facility] follow up for support, patient declined interest in superintendent container terminal therapy. At this time Olive Tobias meets [...] in the past. At this time Olive Toibas meets criteria for Visit Diagnoses: Problem List [...] medical appts c. Continue to engage with [facility] for extra support. Hypertension 09/23/2021 Assessment & Plan (11/30/2024 11:37 AM EDT): Controlled, no changes will be made, continue low carb/no sugar diet, exercise as tolerated Assessment & Plan (07/05/2024 11:36 PM EDT): [...] 2 diabetes mellitus 09/23/2021 Assessment & Plan (11/30/2024 11:37 AM EDT): Will increase trulicity to 3mg, continue jardiance, encouraged low carb/no sugar diet Assessment & Plan (07/05/2024 11:38 PM EDT): Improving, patient tolerated trulicity, will increase dose to 1.5mg, told to stop glipizide/metformin, continue with jardiance, plan is to increase trulicity on next visit Assessment & Plan (06/02/2024 11:12 AM EDT): Controlled, but due to increased risk for cardiovascular disease and risk of hypoglycemia with glipizide, will ad trulicity, told to stop glipizide as treatment started [...] organization. Date Type Department Care Team Description 12/04/2024 Refill [facility] [address] [place] [address] Corey Canseco MD 12/02/2024 Orders Only GENERIC EXTERNAL DATA DEPARTMENT Provider, Generic External Data 11/30/2024 9:00 AM EDT Office Visit [facility] [address] [place] [address] Corey Canseco MD Type 2 diabetes mellitus without complication, without long-term current use of insulin ([facility]) (Primary Dx); Pain; Primary hypertension; Chronic bilateral low back pain with right-sided sciatica 11/29/2024 9:30 AM EDT Office Visit [facility] [address] [place] [address] Gabriel Rothman MD Alcohol use disorder (Primary Dx) 11/29/2024 Travel 11/19/2024 Refill [facility] [address] [place] [address] Corey Canseco MD Mixed hyperlipidemia; Type 2 diabetes mellitus without complication, without long-term current use of insulin ([facility]) 11/11/2024 Orders Only [facility] [address] [place] [address] Марина Duffy MD 11/07/2024 Refill [facility] [address] [place] [address] Corey Canseco MD 11/02/2024 9:00 AM EST Office Visit [facility] [address], [place] [phone] Nettie Everett 10/07/2024 8:30 AM EST Telemedicine [facility] [address] [place] [address] Gabriel Rothman MD Alcohol use disorder (Primary Dx) 10/07/2024 Orders Only [facility] [address], [place] [phone] Corey Canseco MD Type 2 diabetes mellitus without complication, without long-term current use of insulin ([facility]) (Primary Dx) 10/07/2024 Travel 09/23/2024 Refill [facility] [address] [place] [address] Corey Canseco MD 09/20/2024 Refill [facility] [address] [place] [address] Corey Canseco MD from Last 3 Months [...] Date Recorded Patient Health Questionnaire-9 Score 0 11/30/2024 Patient Health Questionnaire-9 Score 0 11/30/2024 Last PHQ-9: Questionnaire Data Not on file 0 11/30/2024 Housing Stability Answer Date Recorded What is your housing situation today? I have dino spring 11/30/[address] you li ve. Do you have problems with any of the following? None of the above 11/30/2024 Food Insecurity Answer Date Recorded Within the past 12 months, y ou worried that your food would run out before you got money to buy more: Never True 11/30/2024 Within the past 12 months,th e food you bought just didn't last and you didn't have enough money to get more: Never True Transportation Answer Date Recorded In the past 12 months, has l ack of transportation kept you from medical appts, meetings, work or from getting things needed for daily living? No 11/30/2024 Utilities Answer Date Recorded In the past 12 months, has t he electric, gas, oil or water company threatened to shut off services in your home? No 11/30/2024 Depression Answer Date Recorded Patient Health Questionnaire-2 Score 0 11/30/2024 Internet Access Answer Date Recorded Internet Access Q1 Yes 11/30/2024 Internet Access Q2 Not on file 11/30/2024 Sex and Gender Information Value Date Recorded Sex Assigned at Male 07/14/2022 10:36 AM EDT Legal Sex Male 10:36 AM EDT Gender Identity Male 07/14/2022 10:36 AM EDT Sexual Orientation Straight 07/14/2022 10 :36 AM EDT Last Filed Vital Signs Vital Sign Reading Time Taken Comments Blood Pressure 130/78 11/30/2024 9:07 AM EDT Pulse 74 11/30/2024 9:07 AM EDT Temperature 36.2 ??C (97.2 ??F) 11/30/2024 9:07 AM ED T Respiratory Rate 20 11/30/2024 9:07 AM EDT Oxygen Saturation 98% 11/30/2024 9:07 AM EDT Inhaled Oxygen Concentration - - Weight 131 kg (289 lb 6.4 oz) 11/30/2024 9:07 AM EDT Height 170.2 cm (5' 7 ) 11/30/2024 9:07 AM EDT Body Mass Index 45.33 11/30/2024 9:07 AM EDT Plan of Treatment Upcoming Encounters Date Type Department Care Team (Late st Contact Info) Description 01/24/2025 8:30 AM EDT Telemedicine [facility] [address] [place] [address] Gabriel Rothman MD [address] [place] [address] 03/03/2025 8:30 AM EDT Telemedicine [facility] [address] [place] [address] Corey Canseco MD [address] [place] [address] Health Maintenance Due Date Last Done Comments CT Colonography 1955 FIT DNA/Cologuard 1955 FIT 1955 FOBT 1955 Sigmoidoscopy 1955 Dental Oral Exam 10/17/2024 04/15/2024, 09/16/2023 Diabetes: Foot Exam 10/28/2024 10/28/2023, 10/28/2023, 10/28/2023, Additional history exists Diabetes: Hemoglobin A1C 03/02/2025 025, 05/25/2024, 03/22/2024, Additional history exists Dental Prophylaxis 05/03/2025 11/02/2024, 0 04/15/2024, 09/16/2023, Additional history exists Tobacco Screening 11/02/2025 11/02/2024 Dental X-Ray: Bitewings 11/03/2025 11/02/19 25, 04/15/2024, 09/16/2023, Additional history exists Eye Exam 11/10/2025 11/10/2024 Alcohol/Substance Use Screening 11/30/2025 11/30/2024 Depression Screening 11/30/2025 11/30/2024, 12/01/19 SDOH Screening 11/30/2025 11/30/2024 Diabetes: Urine Protein Screening 12/02/2025 12/02/2024, 11/13/2023, 05/27/2022, Additional history exists Lipid Panel 12/02/2025 12/02/2024, 10/15, 09/24/2022, Additional history exists Dental X-Ray: Full Mouth 09/17/2026 09/16/2023 DTaP/Tdap/Td [...] Procedure Name Priority Date/Time Associated Diagnosis Comments XR PRE MRI SCREENING Routine 12/14/2024 9:10 AM EDT GLUCOSE, WHOLE BLOOD Routine 12/02/2024 1:17 PM EDT ALBUMIN, RANDOM URINE W/CREATININE Routine 12/02/2024 10:13 AM EDT Type 2 diabetes mellitus without complication, without long-term current use of insulin (CMS/HCC) TSH W/REFLEX TO FT4 Routine 12/02/2024 1 0:11 AM EDT Type 2 diabetes mellitus without complication, without long-term current use of insulin (CMS/HCC) LIPID PANEL, STANDARD Routine 12/02/2024 10:11 AM EDT Type 2 diabetes mellitus without complication, without long-term current use of insulin (CMS/HCC) COMPREHENSIVE METABOLIC PANEL Routine 12/02/2024 10:11 AM EDT Type 2 diabetes mellitus without complication, without long-term current use of insulin (CMS/HCC) CBC WITH AUTO DIFFERENTIAL Routine 12/02/2024 10:11 AM EDT Type 2 diabetes mellitus without complication, without long-term current use of insulin (CMS/HCC) POCT GLUCOSE Routine 11/30/2024 9:30 AM EDT Type 2 diabetes mellitus without complication, without long-term current use of insulin (CMS/HCC) POCT GLYCATED HEMOGLOBIN, TOTAL Routine 11/30/2024 9:19 AM EDT Type 2 diabetes mellitus without complication, without long-term current use of insulin (CMS/HCC) DIABETES EYE EXAM Routine 11/10/2024 9:37 AM EST INTRAORAL - PERIAPICAL EACH ADDITIONAL RADIOGRAPHIC IMAGE Routine 11/02/2024 9:00 AM EST INTRAORAL - PERIAPICAL FIRST RADIOGRAPHIC IMAGE Routine 11/02/2024 9:00 AM EST BITEWINGS - 4 RADIOGRAPHIC IMAGES Routine 11/02/2024 9:00 AM EST ORAL HYGIENE INSTRUCTIONS Routine 11/02/2024 9:00 AM EST PROPHYLAXIS - ADULT Routine 11/02/2024 9 :00 AM EST PERIODIC ORAL EVALUATION - ESTABLISHED PATIENT Routine 04/15/2024 10:00 AM EDT INTRAORAL - COMPLETE SERIES OF RADIOGRAPHIC IMAGES Routine 09/16/2023 9:00 AM EST HM COLONOSCOPY Routine 04/10/2023 12:03 PM EDT HEPATITIS C AB W/REFL TO HCV RNA, QN, PCR Routine 09/24/2022 10:33 AM EST from Last 3 Months or Most Recently Relevant to Health Maintenance Results * XR PRE MRI SCREENING (12/14/2024 9:10 AM EDT) Anatomical Region Laterality Modality Abdomen Radiographic Kristi ging 12/14/2024 9:10 AM EDT Narrative 12/14/2024 9:33 AM EDT ? [facility] ?[address] ?[place] [address] ?XRay Report ? Signed ? Patient: Olive Tobias ?MR#: [id number] ?? 7 ? : 1955 ?Acct:[id number] ? Age/Sex: 69 / M ?ADM Date: 04/02/25 ? Loc: HO.MRI ? Attending Dr: Corey Carcamo MD ? Ordering Physician: Shaq Douglass MD ?? Date of Service: 12/14/24 ?? Procedure(s): XR pre mri screening ?? Accession Number(s): [id number] ? cc: Corey Canseco MD; Shaq Douglass MD ? EXAMINATION: ??XR SCREENING FILM FOR MR ? HISTORY: ORBIT ? COMPARISON: There are no prior studies for comparison. ? FINDINGS: ??Three views of the orbits are submitted. There is no ?? radiopaque foreign body. The visualized paranasal sinuses are clear. ? XR/XR pre mri screening ?? IMPRESSION: ?? No radiopaque foreign body is identified. ? Electronically signed by: ??Blaze Brandt MD ??12/14/2024 09:30 AM EDT ? Dictated By: ?Blaze Brandt MD ? Signed By: ?<Electronically signed by Blaze Brandt MD in OV> ?12/14/24 0930 ? DD/ 0910 ? TD/TT: 12/14/24 0915 ? Bioinformatics Technician: ? Procedure Note Roseann Branch - 12/14/[address] [address] XRay Report Signed Patient: Iona Tobias#: [id number] 7 : 1955cct:[id number] Age/Sex: 69 / MADM Date: 12/14/24 Loc: HO.MRI Attending Dr: Corey Carcamo MD Ordering Physician: Shaq Douglass MD Date of Service: 12/14/24 Procedure(s): XR pre mri screening Accession Number(s): [id number] cc: Corey Canseco MD; Shaq Douglass MD EXAMINATION: XR SCREENING FILM FOR MR HISTORY: ORBIT COMPARISON: There are no prior studies for comparison. FINDINGS: Three views of the orbits are submitted. There is no radiopaque foreign body. The visualized paranasal sinuses are clear. XR/XR pre mri screening IMPRESSION: No radiopaque foreign body is identified. Electronically signed by: Blaze Brandt MD 12/14/2024 09:30 AM EDT Dictated By: Blaze Brandt MD Signed By: <Electronically signed by Blaze Brandt MD in OV> 12/14/24929 DD/ 9 TD/TT: 12/14/24914 Bioinformatics Technician: [facility] External Provider IMG XR PROCEDURES Edited Result - Final * (ABNORMAL) Glucose, Whole Blood (12/02/2024 1:17 PM EDT) Glucose, Whole Blood 120(H) 60 - 115 mg/dL [facility] Comment:METER #: [id number] 12/02/2024 1:17 PM EDT 12/02/2024 1:20 PM EDT us Generic External Data Provider LAB BLOOD ORDERAB LES Final Result Performing Organization Address [facility] Co de Phone Number [facility] [address] [place] [phone] * Albumin, Random Urine W/Creatinine (12/02/2024 10:13 AM EDT) Creatinine, Urine 84.75 mg/dL [facility] Microalbumin Urine 8.0 mg/L [facility] Microalbum Creatinine Ratio Ur 9.4 <30 ug/mg cr [facility] Comment:Albumin/Creatinine R atio Reference Ranges: Normal: < 30 ug/mg creatinine Microalbuminuria: 30 - 300 ug/mg creatinineClinical Albuminuria: > 300 ug/mg creatinine Urine (Urine, Random) 12/02/2024 10:13 AM EDT 12/02/2024 2:08 PM EDT Corey Carcamo MD LAB URINE ORDERABL ES Final Result Performing Organization Address [facility] Co de Phone Number [facility] [address] [place] [address] [phone] * TSH W/Reflex to FT4 (12/02/2024 10:11 AM EDT) TSH reflex Free T4 1.17 0.32 - 4.0 uIU/mL [facility] Blood Venous blood specimen / Unknown 12/02/2024 10:11 AM EDT 12/02/2024 2:05 PM EDT us Corey Carcamo MD LAB BLOOD ORDERABL ES Final Result [facility] [address] [place] [address] [phone] * (ABNORMAL) CBC auto differential (12/02/2024 10:11 AM EDT) White Blood Count 7.1 4.8 - 10.8 X10*3/uL [facility] Red Blood Count 6.14(H) 4.60 - 5.80 X10*6/uL [facility] Hemoglobin 15.7 14.0 - 18.0 g/dl [facility] Hematocrit 50.0 42.0 - 52.0 % [facility] Mean Corpuscular Volume 81.4 80.0 - 98.0 fL [facility] Mean Corpuscular Hemoglobin 25.6(L) 27.0 - 33.0 pg [facility] Mean Corpuscular HGB Conc 31.4 31.0 - 36.0 g/dl [facility] Red Cell Distribution Width 17.4(H) 11.0 - 16.0 % [facility] Platelet Count 177 160 - 400 X10*3/uL [facility] Mean Platelet Volume 9.9 9.4 - 12.4 fL [facility] Neutrophils Percent Auto 72.2 45 - 73 % [facility] Imm Gran Pct Auto 0.6(H) 0.0 - 0.4 % [facility] Lymphocytes Percent Auto 14.1(L) 20 - 40 % [facility] Monocytes Percent Auto 10.3 2 - 11 % [facility] Eosinophils Percent Auto 2.4 0 - 4 % [facility] Basophils Percent Auto 0.4 0 - 2 % [facility] NRBC Pct Auto 0.0 0.0 - 0.2 /100WBC [facility] Neutrophils Absolute Auto 5.1 2.0 - 8.3 x10*3/uL [facility] Imm Gran Abs Auto 0.04(H) 0.00 - 0.03 X10*3/uL [facility] Lymphocytes Absolute Auto 1.0(L) 1.2 - 4.9 X10*3/uL [facility] Monocytes Absolute Auto 0.7 0.1 - 1.2 X10*3/uL [facility] Eosinophils Absolute Auto 0.2 0.0 - 0.4 X10*3/uL [facility] Basophils Absolute Auto 0.0 0.0 - 0.2 X10*3/uL [facility] NRBC Abs Auto 0.000 0.0 - 0.012 X10*3/uL [facility] Blood Venous blood specimen / Unknown 12/02/2024 10:11 AM EDT 12/02/2024 2:05 PM EDT us Corey Carcamo MD LAB BLOOD ORDERABL ES Final Result [facility] [address] [place] [phone] * (ABNORMAL) Lipid Panel, Standard (12/02/2024 10:11 AM EDT) Triglycerides 114 <150 mg/dL [facility] Comment:Desirable Triglyceri de: less than 150 mg/dLBorderline High Triglyceride 150-199 mg/dLHigh Triglyceride: 200-499 mg/dLVery High Triglyceride: greater than or equal to 5OO mg/dL Cholesterol 119 <200 mg/dL [facility] Comment:Desirable Cholestero l: less than 200 mg/dLBorderline High Cholesterol: 200-239 mg/dLHigh Cholesterol: greater than 239 mg/dL LDL Cholesterol Calculated 69 <100 mg/dL [facility] Comment:Desirable LDL: less than 100 mg/dLNear Optimal/Above Optimal LDL: 110- 129 mg/dLBorderline High LDL: 130-159 mg/dLHigh LDL: 160-189 mg/dLVery High LDL: greater than or equal to 190 mg/dL HDL Cholesterol 28(L) >40 mg/dL [facility] Comment:Desirable HDL: great er than 40 mg/dL Note: This HDL assay may give artificially low results in patients with liver disease. Blood Venous blood specimen / Unknown 12/02/2024 10:11 AM EDT 12/02/2024 2:05 PM EDT us Corey Carcamo MD LAB BLOOD ORDERABL ES Final Result [facility] [address] [place] [phone] [phone] * (ABNORMAL) Comprehensive Metabolic Panel (12/02/2024 10:11 AM EDT) Sodium 139 135 - 145 mmol/L [facility] Potassium 4.5 3.3 - 5.1 mmol/L [facility] Chloride 108 96 - 108 mmol/L [facility] Carbon Dioxide 23 22 - 29 mmol/L [facility] Anion Gap 13 12 - 20 [facility] Urea Nitrogen (BUN) 16 9 - 16 mg/dL [facility] Creatinine, Serum 0.80 0.5 - 1.4 mg/dL [facility] Estimated Glomerular Filt Rate >60 [facility] Comment:Chronic Kidney Disea se: Estimated GFR < 60 mL/min/[id number] Kidney Disease: Estimated GFR < 15 mL/min/1.73m2 Glucose 114 60 - 115 mg/dL [facility] Calcium 9.1 8.4 - 10.2 mg/dL [facility] Bilirubin, Total 0.8 0.0 - 1.0 mg/dL [facility] Aspartate Amino Transferase 21 5 - 37 U/L [facility] Alanine Aminotransferase 20 0 - 40 U/L [facility] Total Protein 8.2(H) 6.5 - 8.0 g/dL [facility] Albumin Level 4.1 3.5 - 5.0 g/dL [facility] Alkaline Phosphatase 90 39 - 117 U/L [facility] Blood Venous blood specimen / Unknown 12/02/2024 10:11 AM EDT 12/02/2024 2:05 PM EDT Result [facility] Corey Carcamo MD LAB BLOOD ORDERABL ES Final Result [facility] [address] [place] [phone] * (ABNORMAL) POCT Glucose (11/30/2024 9:30 AM EDT) Pathologist [facility] Glucose Blood, POC 274(A) 60 - 200 mg/dL QC Media Lot # [id number] Lot# Expiration Date 732,025 Blood Capillary blood specimen / Unknown 11/30/2024 9:30 AM EDT Result [facility] Corey Carcamo MD POINT OF CARE TEST ENTER/EDIT ORDERABLES Final Result * (ABNORMAL) POCT HGB A1C (11/30/2024 9:19 AM EDT) Pathologist [facility] Hemoglobin A1C 7.3(A) 4.0 - 6.0 % QC Media Lot # [id number] Lot# Expiration Date ,639 Blood 11/30/2024 9:19 AM EDT Result [facility] Corey Carcamo MD POINT OF CARE TEST ENTER/EDIT ORDERABLES Final Result * Hm Diabetes Eye Exam (11/10/2024 9:37 AM EST) Historical Tati OLIVEIRA HEALTH MAINTENANCE Final Result * Hm Colonoscopy (04/10/2023 12:03 PM EDT) Марина Duffy MD HEALTH MAINTENANCE Final Result * Hepatitis C Antibody with Reflex to HCV, RNA, Quantitative, Real-Time PCR (09/24/2022 10:33 AM EST) Pathologist [facility] [place] Hepatitis C Antibody NON-REACT MARK NON-REACT MARK [facility] Index <0.02 <1.00 [facility] Comment: HCV antibody was non-reactive. There is no laboratory evidence of HCV infection. In most cases, no further action is required. However, if recent HCV exposure is suspected, a test for HCV RNA (test code 29694) is suggested. For additional information please refer to http://education.Phone2Action/faq/AID43q1 (This link is being provided for informational/ educational purposes only.) 09/24/2022 10:3 3 AM EST 09/24/2022 10:33 AM EST Narrative [facility] - 09/24/2022 9:25 PM EST FASTING:NO FASTING: NO Corey Carcamo MD LAB BLOOD ORDERABL ES Final Result [facility] [address], [place] [address] [facility] [address] [facility], ([address]) [place] [phone] from Last 3 Months or Most Recently Relevant to Health Maintenance Insurance [facility] MEDICARE REPLACEMENT D[facility]AL [facility] Care Teams Preparole Counseling Aide Relationship Specialty Start Date End Date ChambersCorey Grace MD [address] [place] [address] PCP - General Internal Medicine 09/09/19
--- OUTSIDE RECORDS SUMMARY | 2024-12-14 09:40 | XMS_ITS | Encounter Summary ---
Author Organization [employer] Address [address] [place] [address] Care Team Providers Care Assistant Branch Operations Manager Name Role Phone Corey Canseco MD Primary Care Prov ider Encounter Details Date Type Department Care Team (Latest Contact Info) Description 09/26/2019 Abstract [facility] CONVERSIONS Dental, Provider, DDS Social History [...] Info) Description 01/24/2025 8:30 AM EDT Telemedicine [facility] MEDICINE [address] [place] [address] Gabriel Rothman MD [address] [place] [address] 03/03/2025 8:30 AM EDT Telemedicine [facility] CHC MED & PEDS [address] [place] [address] Corey Canseco MD [address] [place], [place] documented as of this encounter Visit Diagnoses Not on filedocumented in this encounter Care Teams Assistant Branch Operations Manager Relationship Specialty Start Date End Date ChambersCorey Grace MD [address] [place] [address] PCP - General Internal Medicine 09/09/19 documented as of this encounter
--- OUTSIDE RECORDS SUMMARY | 2024-12-14 09:40 | XMS_ITS | Encounter Summary ---
Author Organization [employer] Address [address] [place] [address] Care Team Providers Care Flat Surfacer Jewel Name Role Phone Corey Canseco MD Primary Care Prov ider Encounter Details Date Type Department Care Team (Latest Contact Info) Description 09/28/2020 Abstract [facility] CONVERSIONS Dental, Provider, DDS Social History Tobacco [...] Description 01/24/2025 8:30 AM EDT Telemedicine [facility] MEDICINE 230 [place] [address] Gabriel Rothman MD 230 [place] [address] 03/03/2025 8:30 AM EDT Telemedicine [facility] CH[facility] MED & PEDS 505 [place] [address] Corey Canseco MD 505 [place], [place] documented as of this encounter Visit Diagnoses Not on filedocumented in this encounter Care Teams Flat Surfacer Jewel Relationship Specialty Start Date End Date ChambersCorey Grace MD [address] [place] [address] PCP - General Internal Medicine 09/09/19 documented as of this encounter
--- OUTSIDE RECORDS SUMMARY | 2024-12-14 09:40 | XMS_ITS | Encounter Summary ---
Author Organization [employer] Address [address] [place] [address] 7 [place] [address] Care Team Providers Care Operating Room Surgical Technologist Name Role Phone Corey Canseco MD Primary Care Prov ider Reason for Visit * Reason Comments Med Refill Encounter Details Date Type Department Care Team ([facility] Contact Info) Description 07/04/2024 Refill [facility] CHC MED & PEDS [address] [place] [address] Corey Canseco MD 505 [place] [address] Social History Tobacco Use Types Packs/Day Years [...] Info) Description 01/24/2025 8:30 AM EDT Telemedicine [facility] MEDICINE 230 [place] [address] Gabriel Rothman MD 230 [place] [address] 03/03/2025 8:30 AM EDT Telemedicine [facility] CHC MED & PEDS [address] [place], [place] [phone] Corey Canseco MD 505 [place] [address] documented as of this encounter Visit Diagnoses Not on filedocumented in this encounter Additional Health Concerns Assessment Noted Time PHQ-9 Depression Total Score: 9 05/19/20 24 9:41 AM EDT documented as of this encounter Care Teams Operating Room Surgical Technologist Relationship Specialty Start Date End Date Corey Canseco MD [address] [place] [address] PCP - General Internal Medicine 09/09/19 documented as of this encounter
--- OUTSIDE RECORDS SUMMARY | 2024-12-14 09:40 | XMS_ITS | Encounter Summary ---
Author Organization [employer] Address [address] [place] [address] 7 [place] [address] Care Team Providers Care Director Of Health Education Name Role Phone Corey Canseco MD Primary Care Prov ider Reason for Visit * Reason Comments Med Refill Encounter Details Date Type Department Care Team (Late Contact Info) Description 04/05/2023 Refill [facility] CHC MED & PEDS [address] [place] [address] Corey Canseco MD [address] [place] [address] Mixed hyperlipidemia Social History Tobacco Use Types [...] Upcoming Encounters Date Type Department Care Team ([facility] Contact Info) Description 01/24/2025 8:30 AM EDT Telemedicine [facility] MEDICINE 230 [place], [place] [phone] Gabriel Rothman MD 230 [place] [address] 03/03/2025 8:30 AM EDT Telemedicine [facility] CHC MED & PEDS [address] [place], [place] [phone] Corey Canseco MD [address] [place], [place] [phone] documented as of this encounter Visit Diagnoses Diagnosis Mixed hyperlipidemia documented in this encounter Additional Health Concerns Assessment Noted Time PHQ-9 Depression Total Score: 0 12/20/19 23 9:39 AM EDT documented as of this encounter Care Teams Director Of Health Education Relationship Specialty Start Date End Date Corey Canseco MD 505 [place] [address] PCP - General Internal Medicine 09/09/19 documented as of this encounter
--- OUTSIDE RECORDS SUMMARY | 2024-12-14 09:40 | XMS_ITS | Encounter Summary ---
Author Organization [employer] Address [address] [place] [address] [place] [address] Care Team Providers Care Opal Polisher Name Role Phone Corey Canseco MD Primary Care Prov ider Reason for Visit * Reason Comments Med Refill Encounter Details Date Type Department Care Team (Late Contact Info) Description 03/20/2023 Refill [facility] CHC MED & PEDS [address] [place] [address] Corey Canseco MD 505 [place] [address] Social History Tobacco Use Types Packs/Day Years [...] Upcoming Encounters Date Type Department Care Team ([facility] Contact Info) Description 01/24/2025 8:30 AM EDT Telemedicine [facility] MEDICINE [address] [place], [place] [phone] Gabriel Rothman MD 230 [place] [address] 03/03/2025 8:30 AM EDT Telemedicine [facility] CHC MED & PEDS [address] [place], [place] [phone] Corey Canseco MD [address] [place], [place] [phone] documented as of this encounter Visit Diagnoses Not on filedocumented in this encounter Additional Health Concerns Assessment Noted Time PHQ-9 Depression Total Score: 0 12/20/19 23 9:39 AM EDT documented as of this encounter Care Teams Opal Polisher Relationship Specialty Start Date End Date Corey Canseco MD [address] [place], [place] [phone] PCP - General Internal Medicine 09/09/19 documented as of this encounter
--- OUTSIDE RECORDS SUMMARY | 2024-12-14 09:40 | XMS_ITS | Encounter Summary ---
Author Organization [employer] Address [address] [facility] 7 [place] [address] Care Team Providers Care Chef'S Assistant Name Role Phone Corey Canseco MD Primary Care Prov ider Encounter Details Date Type Department Care Team (Late st Contact Info) Description 06/01/2024 Orders Only [facility] CHC MED & PEDS 505 [place] [address] Corey Canseco MD 505 [place] [address] Social History Tobacco Use Types Packs/Day Years [...] 01/24/2025 8:30 AM EDT Telemedicine [facility] MEDICINE 230 [place] [address] Gabriel Rothman MD 230 [place] [address] 03/03/2025 8:30 AM EDT Telemedicine [facility] CHC MED & PEDS [address] [place] [address] Corey Canseco MD 505 [place] [address] documented as of this encounter Visit Diagnoses Not on filedocumented in this encounter Additional Health Concerns Assessment Noted Time PHQ-9 Depression Total Score: 9 05/19/20 24 9:41 AM EDT documented as of this encounter Care Teams Chef'S Assistant Relationship Specialty Start Date End Date Corey Canseco MD 505 [place] [address] PCP - General Internal Medicine 09/09/19 documented as of this encounter
--- OUTSIDE RECORDS SUMMARY | 2024-12-14 09:40 | XMS_ITS | Encounter Summary ---
Author Organization [employer] Address [address] [facility] 7t [place] [address] Care Team Providers Care Head Grinder Name Role Phone Corey Canseco MD Primary Care Prov ider Encounter Details Date Type Department Care Team (Late st Contact Info) Description 09/30/2023 Abstract [facility] CHC ADULT DENTAL [address] [place] [address] Maryana Penn, DDS 505 [place] [address] Social History Tobacco Use Types Packs/Day Years [...] Info) Description 01/24/2025 8:30 AM EDT Telemedicine [facility] MEDICINE 230 [place] [address] Gabriel Rothman MD 230 [place] [address] 03/03/2025 8:30 AM EDT Telemedicine [facility] CHC MED & PEDS [address] [place] [address] Corey Canseco MD 505 [place] [address] documented as of this encounter Visit Diagnoses Not on filedocumented in this encounter Additional Health Concerns Assessment Noted Time PHQ-9 Depression Total Score: 5 08/27/20 23 9:37 AM EST documented as of this encounter Care Teams Head Grinder Relationship Specialty Start Date End Date Corey Canseco MD 505 [place] [address] PCP - General Internal Medicine 09/09/19 documented as of this encounter
--- OUTSIDE RECORDS SUMMARY | 2024-12-14 09:40 | XMS_ITS | Encounter Summary ---
Author Organization [employer] Address [address] 7[address] [place] [address] Care Team Providers Care Photo Technician Name Role Phone Corey Canseco MD Primary Care Prov ider Encounter Details Date Type Department Care Team (Late st Contact Info) Description 12/25/2023 Orders Only [facility] MEDICINE [address] [place] [address] ProviderМарина MD Social History Tobacco Use Types [...] Info) Description 01/24/2025 8:30 AM EDT Telemedicine [facility] MEDICINE [address] [place] [address] Gabriel Rothman MD 230 [place] [address] 03/03/2025 8:30 AM EDT Telemedicine [facility] CHC MED & PEDS [address] [place] [address] Corey Canseco MD 505 [place], [place] [phone] documented as of this encounter Procedures Procedure [...] EDT Narrative 01/14/2024 4:15 PM EDT ? [facility] ?[address] ?[place] [address] ? CT Scan Report ? Signed ? Patient: Olive Tobias ?MR#: [id number] ?? 7 ? : 1955 ?Acct:[id number] ? Age/Sex: 68 / M ?ADM Date: 01/14/24 ? Loc: HO.CT ? Attending Dr: Jon Meza MD ? Ordering Physician: Jon Meza MD ?? Date of Service: 01/14/24 ?? Procedure(s): CT shoulder LT wo IV con ?? Accession Number(s): [id number] ? cc: Corey Canseco MD; Jon Meza [...] 1612 ? DD/ 0815 ? TD/TT: ? Jacket Changer: RK ? Procedure Note Jose Carlos, Roseann - 01/14/[address] [place] [address] [address] Scan Report Signed Patient: Iona Tobias#: [id number] 7 : 6Acct:[id number] Age/Sex: 68 / MADM Date: 01/14/24 Loc: HO.CT Attending Dr: Jon Meza MD Ordering Physician: Jon Meza MD Date of Service: 01/14/24 Procedure(s): CT shoulder LT wo IV con Accession Number(s): [id number] cc: Corey Canseco MD; Jon Meza MD [...] in OV> 01/14/24 1612 DD/ 0815 TD/TT: Jacket Changer: NEREY[facility] External Provider IMG CT PROCEDURES Final Result * Hm Colonoscopy (04/10/2023 12:03 PM EDT) Historical Provider HEALTH MAINTENANCE Final Result documented in this encounter Visit Diagnoses Not on filedocumented in this encounter Additional Health Concerns Assessment Noted Time PHQ-9 Depression Total Score: 6 12/24/19 24 9:28 AM EDT documented as of this encounter Care Teams Photo Technician Relationship Specialty Start Date End Date Corey Canseco MD [address] [place] [address] PCP - General Internal Medicine 09/09/19 documented as of this encounter
--- OUTSIDE RECORDS SUMMARY | 2024-12-14 09:40 | XMS_ITS | Encounter Summary ---
Author Organization [employer] Address [address] [place] [address] 7t [place] [address] Care Team Providers Care Training Systems Officer Name Role Phone Corey Canseco MD Primary Care Prov ider Encounter Details Date Type Department Care Team (Late st Contact Info) Description 11/11/2024 Orders Only [facility] [address] [place] [address] Provider, MD Марина Social History Tobacco Use [...] Info) Description 01/24/2025 8:30 AM EDT Telemedicine [facility] MEDICINE 230 [place] [address] Gabriel Rothman MD 230 [place] [address] 03/03/2025 8:30 AM EDT Telemedicine [facility] CHC MED & PEDS 505 [place] [address] Corey Canseco MD 505 [place] [address] documented as of this encounter Procedures Procedure Name Priority Date/Time Associated Diagnosis Comments DIABETES EYE EXAM Routine 11/10/2024 9:37 AM EST documented in this encounter Results * Diabetes Eye Exam (11/10/2024 9:37 AM EST) us Historical Provider HEALTH MAINTENANCE Final Result documented in this encounter Visit Diagnoses Not on filedocumented in this encounter Additional Health Concerns Assessment Noted Time PHQ-9 Depression Total Score: 10 024 9:32 AM EST documented as of this encounter Care Teams Training Systems Officer Relationship Specialty Start Date End Date Corey Canseco MD [address] [place] [address] PCP - General Internal Medicine 09/09/19 documented as of this encounter
--- OUTSIDE RECORDS SUMMARY | 2024-12-14 09:40 | XMS_ITS | Encounter Summary ---
Author Organization [employer] Address [address] [place] [address] Care Team Providers Care Director Case Name Role Phone Corey Canseco MD Primary Care Prov ider Reason for Referral * Imaging (Routine) - Closed Specialty Diagnoses / Procedures Referred By Contac t Referred To Contact Radiology Diagnoses Chronic left shoulder pain Procedures MR Shoulder w/o Contrast Left Corey Canseco MD [address] [place] [address] Phone: tel: fax: [address] Phone: tel: fax: Referral ID Status Reason Start Date Expiration Date Visits Re quested Visits Authorized [id number] Closed 12/02/2023 12/01/2024 1 1 Encounter Details Date Type Department Care Team (Late st Contact Info) Description 12/02/2023 Orders Only [facility] CHC MED & PEDS [address] [place] [address] Corey Canseco MD [address] [place] [address] Chronic left shoulder pain (Primary Dx) Social [...] Info) Description 01/24/2025 8:30 AM EDT Telemedicine [facility] MEDICINE 230 [place] [address] Gabriel Rothman MD [address] [place] [address] 03/03/2025 8:30 AM EDT Telemedicine [facility] CHC MED & PEDS [address] [place] [address] Corey Canseco MD [address] [place] [address] Scheduled Orders Name Type Priority Associated Diagnoses [...] as of this encounter Care Teams Director Case Relationship Specialty Start Date End Date Corey Canseco MD [address] [place] [address] PCP - General Internal Medicine 09/09/19 documented as of this encounter
== END 2024-12-14 08:57 | disposition home or self-care (01) ==
LOC: HO.MRI 08:56
PROVIDERS: PCP Internal Medicine; Visit Provider Internal Medicine
DX: M54.41 Lumbago with sciatica, right side (principal); G89.29 Other chronic pain
CPT/HCPCS: 72148

== ENCOUNTER → 2024-12-14 09:58 | Outpatient (BNV) | payer MEDICARE, SELFPAY | PROVIDERS: PCP Internal Medicine; Visit Provider Radiology Diagnostic Radiology | DX: M71.38 Other bursal cyst, other site (principal); M47.816 Spondylosis without myelopathy or radiculopathy, lumbar region; M99.63 Osseous and subluxation stenosis of intervertebral foramina of lumbar region | CPT/HCPCS: 72148 ==

== ENCOUNTER 2024-12-19 08:23 | Outpatient (AMB) | payer MEDICARE, SELFPAY ==
--- NOTE | 2024-12-19 08:27 | A.OFFVIS_ITS ---
Vital Signs 12/19/24 08:34 Height 5 ft 7 in Weight 288 lb BMI 45.1 BP 135/60 Blood Pressure Location Lt brachial Position Sitting Pulse 73 Pulse Oximetry (%) 97 Oxygen Delivery Method Room Air Intake Visit Reasons: 3 Mo f/u Hemmeroids Intake Note: Patient complex follow up for hemorrhoids + constipation. Patient cc: back pain and numb on his anus, denes any other GI issues for today issues. German Tutor Required: No Accompanied by: Self / Same As Patient Allergies iron Allergy (Severe, Verified 12/19/24 08:26) Rash ( from oral supplement) HPI HPI 3 Mo f/u Hemmeroids: Details: LAST VISIT: Hemorrhoids Postprandial diarrhea Plan Patient will increase fiber intake. [id number] fiber and probiotics as recommended. Patient was encouraged to increase fluid intake and activity to promote better bowel motility. Continue avoiding alcohol. Sitz baths recommended with Epsom salts. Script for Proctosol send. Patient will follow-up in 3 months, sooner on as needed basis. He is agreeable to plan of care and verbalizes understanding of instructions. He was given the opportunity to ask questions and all questions answered. ? Thank you for allowing me to participate in his care Medications New hydrocortisone 2.5% (Proctosol HC) 1 appl IN BID-QID PRN 30 grams 2RF hemorrhoids K64.9 Discontinued sennosides (Senna Lax) Discontinued Reason: Patient Completed Course 17.2 mg (2 x 8.6 mg) PO BEDTIME 14 days 28 tabs 0RF TODAY'S VISIT Patient is here today for follow-up. Patient reports that he continues to have occasional rectal leakage. Patient reports that he has been dealing with this for years. Declined in the past rectal surgeon. Not using enough fiber. Patient reports that this happens couple times a week another every day. Usually patient reports that his stools are for the most part firm. Had MRI of his back and patient was referred to orthopedics. We will refer him to neurosurgery see report below: IMPRESSION: 5 mm synovial cyst, right L4-5 facet joint and spondylosis with grade 1 anterolisthesis at L4-5 compressing the neural elements of the thecal sac and the L4 exiting nerve roots. Multilevel lumbar spondylosis L2-3 to L5-S1 likely encroaching the neural elements. Right foramen stenosis, L5-S1, compressing the right L5 exiting nerve root on a degenerative basis. Patient denies tingling in the lower extremities. Denies fecal incontinence or urinary incontinence. Patient denies any blood in the stool, however occasionally he might small amount of blood after bowel movement. Patient is on Eliquis for AFib. Patient denies any abdominal pain or discomfort. Denies any dyspepsia, dysphagia or odynophagia. Denies any other GI concerning symptoms. [facility] Medical History Family history of anesthesia complication Arthritis History of cardioversion Atrial fibrillation Asthma HTN (hypertension) Elevated cholesterol Diabetes Sciatica Sleep apnea Shoulder pain with history of repair of rotator cuff Surgical History History of surgery H/O colonoscopy History of surgical removal of ganglion cyst Hx of rotator cuff surgery History of cardiac cath Hx of elbow surgery History of carpal tunnel release Hx of eye surgery Hx of tonsillectomy Hx of hernia repair Hx of knee surgery Family History Father Heart disease HTN (hypertension) Mother Atrial fibrillation Sister Diabetes Social History Household Members: Spouse Housing: House Are you a primary residential child care counselor to a significant other at home: No Do you presently have visiting nurse or other home services: No Alcohol intake: current Alcohol intake frequency: does not drink Patient Tobacco Use Status: Former Tobacco user Substance Use Type: Marijuana service: No Current 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 status: retired Review of Systems Const Denies weight gain and Denies weight loss ENT Reports no additional complaints, Denies dysphagia and Denies odynophagia Card Reports no additional complaints Resp Reports no additional complaints GI Denies abdominal pain, Denies belching, Denies melena, Denies bloating, Denies change in bowel habits, Denies dysphagia, Denies excessive flatus, Denies dyspepsia, Denies heartburn, Denies diarrhea, Reports loose stools (Occasional), Denies nausea, Denies odynophagia and Denies vomiting Reports no additional complaints Musc Reports no additional complaints Neuro Reports no additional complaints Psych Reports no additional complaints Endo Reports no additional complaints Physical Exam Vital Signs: Last Vital Signs Pulse 73 12/19/24 08:34 BP 135/60 12/19/24 08:34 Pulse Ox 97 12/19/24 08:34 Oxygen Delivery Method Room Air 12/19/24 08:34 BMI result Body Mass Index 45.1 Const General: healthy appearing and no acute distress Nutritional Appearance: obese Orientation/consciousness: patient oriented x3 Resp Effort & Inspection: normal respiratory effort, able to speak in complete sentences, no tracheal deviation and symmetric chest movement Auscultation: clear to auscultation bilaterally Cardio Jugular venous distension: no JVD Rate: regular rate GI Inspection: Yes normal to inspection, No distended and Yes obesity Palpation (GI): Soft to palpation, not firm, nontender and No hepatosplenomegaly present Auscultation: normal bowel sounds General: Yes no CVA tenderness Back/Spine/Pelvis Back: no CVA tenderness Skin General skin exam: elasticity normal, turgor normal and dry skin Neuro General: patient oriented x3 Psych Appearance: grossly normal Mental Status: mental status grossly normal Speech and movement: Normal speech and movement present Affect: normal affect Assessment & Plan Assessment & Plan (1) Hemorrhoids: Code(s): K64.9 - Unspecified hemorrhoids Category: Medical Qualifiers: Hemorrhoid type: other Qualified Code(s): K64.8 - Other hemorrhoids (2) Postprandial diarrhea: Code(s): K52.9 - Noninfective gastroenteritis and colitis, unspecified Plan Patient will increase fiber in his diet. Will add additional fiber. Neuro surgery referral : IMPRESSION: 5 mm synovial cyst, right L4-5 facet joint and spondylosis with grade 1 anterolisthesis at L4-5 compressing the neural elements of the thecal sac and the L4 exiting nerve roots. Multilevel lumbar spondylosis L2-3 to L5-S1 likely encroaching the neural elements. Right foramen stenosis, L5-S1, compressing the right L5 exiting nerve root on a degenerative basis. Patient denies any urinary or fecal incontinence although does experiences occasional fecal leakage. Patient will follow-up in the office in 6 months. He will call us if you have any GI concerning symptoms. Patient is agreeable to current plan of care and verbalizes understanding of instructions. He was given the opportunity to ask questions and all questions answered. Thank you for allowing me to participate in his care Orders: Referrals Neuro Spine Referral M47.816 - Spondylosis without myelopathy or radiculopathy, lumbar region Medications: New methylcellulose (laxative) (Citrucel) take it with full glass of water 500 mg PO DAILY 90 tabs 2RF K59.00 - Constipation, unspecified Coding Level of Care Code Est Pt Level 3 (64732) Diagnoses Other hemorrhoids K64.8 Hemorrhoid type: other Postprandial diarrhea K52.9 Time Spent (min) 25 Comment 15 minutes spent with patient and additional 10 minutes spent reviewing his records
[2024-12-19 08:34] VITALS: BP 135/60; PULSE 73; O2SAT 97; BMI 45.1
--- OUTSIDE RECORDS SUMMARY | 2024-12-19 08:54 | XMS_ITS | Encounter Summary ---
Author Organization [employer] Address [address] [place] [address] Care Team Providers Care Entry Level Truck Driver Name Role Phone Corey Canseco MD Primary Care Prov ider Reason for Visit * Reason Comments Med Refill Encounter Details Date Type Department Care Team (Late Contact Info) Description 03/20/2023 Refill [facility] MED & PEDS [address] [place] [address] Corey Canseco MD [address] [place] [address] Social History Tobacco Use Types Packs/Day Years [...] Upcoming Encounters Date Type Department Care Team ([facility] Contact Info) Description 01/24/2025 8:30 AM EDT Telemedicine [facility] MEDICINE [address] [place], [place] [phone] Gabriel Rothman MD [address] [place] [address] 03/03/2025 8:30 AM EDT Telemedicine [facility] MED & PEDS [address] [place], [place] [phone] Corey Canseco MD [address] [place], [place] [phone] documented as of this encounter Visit Diagnoses Not on filedocumented in this encounter Additional Health Concerns Assessment Noted Time PHQ-9 Depression Total Score: 0 12/20/19 23 9:39 AM EDT documented as of this encounter Care Teams Entry Level Truck Driver Relationship Specialty Start Date End Date Corey Canseco MD [address] [place], [place] [phone] PCP - General Internal Medicine 09/09/19 documented as of this encounter
--- OUTSIDE RECORDS SUMMARY | 2024-12-19 08:54 | XMS_ITS | Encounter Summary ---
Author Organization [employer] Address [address] [place] [address] Care Team Providers Care Decorative Engraver Name Role Phone Corey Canseco MD Primary Care Prov ider Encounter Details Date Type Department Care Team (Latest Contact Info) Description 09/26/2019 Abstract [facility] CONVERSIONS Dental, Provider, DDS Social History Tobacco [...] Info) Description 01/24/2025 8:30 AM EDT Telemedicine [facility] MEDICINE [address] [place] [address] Gabriel Rothman MD [address] [place] [address] 03/03/2025 8:30 AM EDT Telemedicine [facility] CH[facility] MED & PEDS [address] [place] [address] Corey Canseco MD [address] [place], [place] documented as of this encounter Visit Diagnoses Not on filedocumented in this encounter Care Teams Decorative Engraver Relationship Specialty Start Date End Date ChambersCorey Grace MD [address] [place] [address] PCP - General Internal Medicine 09/09/19 documented as of this encounter
--- OUTSIDE RECORDS SUMMARY | 2024-12-19 08:54 | XMS_ITS | Encounter Summary ---
Author Organization [employer] Address [address] [place] [address] 7 [place] [address] Care Team Providers Care Well Logging Operator Mud Analysis Name Role Phone Corey Canseco MD Primary Care Prov ider Reason for Visit * Reason Comments Med Refill Encounter Details Date Type Department Care Team (Late Contact Info) Description 04/05/2023 Refill [facility] MED & PEDS [address] [place] [address] Corey Canseco MD [address] [place] [address] Mixed hyperlipidemia Social History Tobacco Use Types [...] Upcoming Encounters Date Type Department Care Team ([facility] Contact Info) Description 01/24/2025 8:30 AM EDT Telemedicine [facility] MEDICINE [address] [place], [place] [phone] Gabriel Rothman MD [address] [place] [address] 03/03/2025 8:30 AM EDT Telemedicine [facility] MED & PEDS [address] [place], [place] [phone] Corey Canseco MD [address] [place], [place] [phone] documented as of this encounter Visit Diagnoses Diagnosis Mixed hyperlipidemia documented in this encounter Additional Health Concerns Assessment Noted Time PHQ-9 Depression Total Score: 0 12/20/19 23 9:39 AM EDT documented as of this encounter Care Teams Well Logging Operator Mud Analysis Relationship Specialty Start Date End Date Corey Canseco MD [address] [place] [address] PCP - General Internal Medicine 09/09/19 documented as of this encounter
--- OUTSIDE RECORDS SUMMARY | 2024-12-19 08:54 | XMS_ITS | Encounter Summary ---
Author Organization [employer] Address [address] [facility] 7 [place] [address] Care Team Providers Care Superintendent Pier Name Role Phone Corey Canseco MD Primary Care Prov ider Encounter Details Date Type Department Care Team (Late st Contact Info) Description 06/01/2024 Orders Only [facility] MED & PEDS [address] [place] [address] Corey Canseco MD [address] [place] [address] Social History Tobacco Use Types Packs/Day Years [...] AM EDT Telemedicine [facility] MEDICINE [address] [place] [address] Gabriel Rothman MD [address] [place] [address] 03/03/2025 8:30 AM EDT Telemedicine [facility] MED & PEDS [address] [place] [address] Corey Canseco MD [address] [place] [address] documented as of this encounter Visit Diagnoses Not on filedocumented in this encounter Additional Health Concerns Assessment Noted Time PHQ-9 Depression Total Score: 9 05/19/20 24 9:41 AM EDT documented as of this encounter Care Teams Superintendent Pier Relationship Specialty Start Date End Date Corey Canseco MD [address] [place] [address] PCP - General Internal Medicine 09/09/19 documented as of this encounter
--- OUTSIDE RECORDS SUMMARY | 2024-12-19 08:54 | XMS_ITS | Encounter Summary ---
Author Organization [employer] Address [address] [place] [address] Care Team Providers Care Chemical Operator Name Role Phone Corey Canseco MD Primary Care Prov ider Reason for Referral * Imaging (Routine) - Closed Specialty Diagnoses / Procedures Referred By Contac t Referred To Contact Radiology Diagnoses Chronic left shoulder pain Procedures MR Shoulder w/o Contrast Left Corey Canseco MD [address] [place] [address] Phone: tel: fax: [address] Phone: tel: fax: Referral ID Status Reason Start Date Expiration Date Visits Re quested Visits Authorized [id number] Closed 12/02/2023 12/01/2024 1 1 Encounter Details Date Type Department Care Team (Late st Contact Info) Description 12/02/2023 Orders Only [facility] MED & PEDS [address] [place] [address] Corey Canseco MD [address] [place] [address] Chronic left shoulder pain (Primary Dx) Social [...] Info) Description 01/24/2025 8:30 AM EDT Telemedicine [facility] MEDICINE [address] [place] [address] Gabriel Rothman MD [address] [place] [address] 03/03/2025 8:30 AM EDT Telemedicine [facility] CH[facility] MED & PEDS [address] [place] [address] Corey Canseco MD [address] [place] [address] Scheduled Orders Name Type Priority Associated Diagnoses [...] documented as of this encounter Care Teams Chemical Operator Relationship Specialty Start Date End Date Corey Canseco MD [address] [place] [address] PCP - General Internal Medicine 09/09/19 documented as of this encounter
--- OUTSIDE RECORDS SUMMARY | 2024-12-19 08:54 | XMS_ITS | Encounter Summary ---
Author Organization [employer] Address [address] [place] [address] 7 [place] [address] Care Team Providers Care Cake Puncher Name Role Phone Corey Canseco MD Primary Care Prov ider Reason for Visit * Reason Comments Med Refill Encounter Details Date Type Department Care Team ([facility] Contact Info) Description 07/04/2024 Refill [facility] CH[facility] MED & PEDS [address] [place] [address] Corey Canseco MD [address] [place] [address] Social History Tobacco Use Types Packs/Day Years [...] 01/24/2025 8:30 AM EDT Telemedicine [facility] MEDICINE [address] [place] [address] Gabriel Rothman MD [address] [place] [address] 03/03/2025 8:30 AM EDT Telemedicine [facility] CH[facility] MED & PEDS [address] [place], [place] [phone] Corey Canseco MD [address] [place] [address] documented as of this encounter Visit Diagnoses Not on filedocumented in this encounter Additional Health Concerns Assessment Noted Time PHQ-9 Depression Total Score: 9 05/19/20 24 9:41 AM EDT documented as of this encounter Care Teams Cake Puncher Relationship Specialty Start Date End Date Corey Canseco MD [address] [place] [address] PCP - General Internal Medicine 09/09/19 documented as of this encounter
--- OUTSIDE RECORDS SUMMARY | 2024-12-19 08:54 | XMS_ITS | Encounter Summary ---
Author Organization [employer] Address [address] [place] [address] Care Team Providers Care Molded Parts Inspector Name Role Phone Corey Canseco MD Primary Care Prov ider Encounter Details Date Type Department Care Team (Latest Contact Info) Description 09/28/2020 Abstract [facility] CONVERSIONS Dental, Provider, DDS Social History [...] Info) Description 01/24/2025 8:30 AM EDT Telemedicine [facility] MEDICINE [address] [place] [address] Gabriel Rothman MD [address] [place] [address] 03/03/2025 8:30 AM EDT Telemedicine [facility] CH[facility] MED & PEDS [address] [place] [address] Corey Canseco MD [address] [place], [place] documented as of this encounter Visit Diagnoses Not on filedocumented in this encounter Care Teams Molded Parts Inspector Relationship Specialty Start Date End Date ChambersCorey Grace MD [address] [place] [id number] PCP - General Internal Medicine 09/09/19 documented as of this encounter
--- OUTSIDE RECORDS SUMMARY | 2024-12-19 08:54 | XMS_ITS | Encounter Summary ---
Author Organization [employer] Address [address] [facility] 7t [place] [address] Care Team Providers Care Biochemistry Specialist Name Role Phone Corey Canseco MD Primary Care Prov ider Encounter Details Date Type Department Care Team (Late st Contact Info) Description 09/30/2023 Abstract [facility] CH[facility] ADULT DENTAL [address] [place] [address] Maryana Penn, DDS [address] [place] [address] Social History Tobacco Use Types Packs/Day Years [...] 01/24/2025 8:30 AM EDT Telemedicine [facility] MEDICINE [address] [place] [address] Gabriel Rothman MD [address] [place] [address] 03/03/2025 8:30 AM EDT Telemedicine [facility] CH[facility] MED & PEDS [address] [place] [address] Corey Canseco MD [address] [place] [address] documented as of this encounter Visit Diagnoses Not on filedocumented in this encounter Additional Health Concerns Assessment Noted Time PHQ-9 Depression Total Score: 5 08/27/20 23 9:37 AM EST documented as of this encounter Care Teams Biochemistry Specialist Relationship Specialty Start Date End Date Corey Canseco MD [address] [place] [address] PCP - General Internal Medicine 09/09/19 documented as of this encounter
--- OUTSIDE RECORDS SUMMARY | 2024-12-19 08:54 | XMS_ITS | Encounter Summary ---
Author Organization [employer] Address [address] [place] [address] 7 [place] [address] Care Team Providers Care Learning Coach Name Role Phone oCrey Canseco MD Primary Care Prov ider Reason for Visit * Reason Onset Date Comments Results 12/15/2024 Encounter Details Date Type Department Care Team ([facility] Contact Info) Description 12/15/2024 Telephone [facility] CH[facility] MED & PEDS [address] [place] [address] Corey Canseco MD [address] [place] [address] Results Social History Tobacco Use Types Packs/Day Years [...] encounter Miscellaneous Notes * Telephone Encounter - Maria L Lancaster RN - 12/15/2024 9:52 AM EDT TC to pt to inform about MRI results per provider instruction. Informed pt of 02/03/25 appt with orthopedic. Pt stated is aware of appt. Advised ER precautions while waiting for ortho appt. Pt verbalized understanding and agreement with plan. documented in this encounter Plan of Treatment Upcoming Encounters Date Type Department Care Team (Late st Contact Info) Description 01/24/2025 8:30 AM EDT Telemedicine [facility] MEDICINE [address] [place] [address] Gabriel Rothman MD [address] [place], [place] [phone] 03/03/2025 8:30 AM EDT Telemedicine [facility] MED & PEDS [address] [place] [address] Corey Canseco MD [address] [place] [address] documented as of this encounter Visit Diagnoses Not on filedocumented in this encounter Additional Health Concerns Assessment Noted Time PHQ-9 Depression Total Score: 0 12/01/19 25 9:07 AM EDT documented as of this encounter Care Teams Learning Coach Relationship Specialty Start Date End Date Corey Canseco MD [address] [place] [address] PCP - General Internal Medicine 09/09/19 documented as of this encounter
--- OUTSIDE RECORDS SUMMARY | 2024-12-19 08:54 | XMS_ITS | Clinical Summary ---
Author Organization [employer] Address [address] [place] [address] 7t [place] [address] Care Team Providers Care Tobacco Sizer Name Role Phone Corey Canseco MD Primary [...] complication, without long-term current use of insulin ([facility]) Inject 3 mg under the skin 1 [...] complication, without long-term current use of insulin ([facility]) TAKE ONE TABLET EVERY MORNING 90 tablet 1 024 2024 Discontinued gabapentin (Neurontin) 300 MG capsule TAKE ONE CAPSULE THREE TIMES DAILY IN THE MORNING, EVENING AND BEDTIME 90 capsule 1 025 2024 Discontinued(R eorder (will not trigger notification to Pharmacy)) Dulaglutide (Trulicity) 1.5 MG/0.5ML solution auto-injectorIndi cations:Type 2 diabetes mellitus without complication, without long-term current use of insulin (CMS/[facility]) Inject 1.5 mg under the skin 1 [...] trial of gabapentin, call back if worsening Pre-op evaluation 07/05/2024 Assessment & Plan (07/05/2024 11:41 PM EDT): Patient will undergo left shoulder replacement Denied chest pain or shortness of breath Mets >4 Blood work done today at [facility] Told to continue oral antyhypertensives the [...] (03/07/2024 2:26 PM EDT): Will refer to [facility] Assessment & Plan (11/30/2023 10:07 [...] in treatment. PLAN: 1. Follow up with [facility]: Recommended for follow-up: During AUD appt 2. Patient goal is become sober and reduce anxiety sxs. 3. Behavioral Recommendations a. Continue to use coping mechanisms b. Keeping his medical appts c. Continue to engage with [facility] for extra support. Assessment & Plan (01/23/2023 [...] sobriety goal. PLAN: 1. Follow up with [facility]: Recommended for follow-up: 08/27/24 at 9am 2. 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 At this time Olive Tobias meets criteria for Visit Diagnoses: Problem List Items Addressed This Visit Other Alcohol abuse RUMA (generalized anxiety disorder) Patient ready to address current needs Yes Strengths include willing to continue to be engage with [facility] PLAN: 1. Follow up with [facility]: Recommended for follow-up: 07/02/23 at 9:30 am [...] in treatment. PLAN: 1. Follow up with [facility]: Recommended for follow-up: During AUD appt 2. [...] eye exam is schedule for October 14 Resolved Problems Problem Noted Date Diagnosed Date Resolved Date Grief 07/21/2024 12/16/2024 Encounters * This document contains information received from the source organization and may not represent a complete record from that organization. Date Type Department Care Team Description 12/15/2024 Telephone [facility] [address] [place] [address] Corey Canseco MD Results 12/04/2024 Refill [facility] [address] [place] [address] Corey Canseco MD 12/02/2024 Orders Only GENERIC EXTERNAL DATA DEPARTMENT Provider, Generic External Data 11/30/2024 9:00 AM EDT Office Visit [facility] [address] [place] [address] Corey Canseco MD Type 2 diabetes mellitus without complication, without long-term current use of insulin ([facility]) (Primary Dx); Pain; Primary hypertension; Chronic bilateral low back pain with right-sided sciatica 11/29/2024 9:30 AM EDT Office Visit [facility] [address] [place] [phone] Gabriel Rothman MD Alcohol use disorder (Primary Dx) 11/29/2024 Travel 11/19/2024 Refill [facility] [address] [place] [address] Corey Canseco MD Mixed hyperlipidemia; Type 2 diabetes mellitus without complication, without long-term current use of insulin ([facility]) 11/11/2024 Orders Only [facility] [address] [place] [address] Марина Duffy MD 11/07/2024 Refill [facility] [address] [place] [address] Corey Canseco MD 11/02/2024 9:00 AM EST Office Visit [facility] [address] [place] [address] Nettie Everett 10/07/2024 8:30 AM EST Telemedicine [facility] [address] [place] [address] Gabriel Rothman MD Alcohol use disorder (Primary Dx) 10/07/2024 Orders Only [facility] [address] [place] [address] Corey Canseco MD Type 2 diabetes mellitus without complication, without long-term current use of insulin ([facility]) (Primary Dx) 10/07/2024 Travel 09/23/2024 Refill [facility] [address] [place] [address] Corey Canseco MD 09/20/2024 Refill [facility] [address] [place] [address] Corey Canseco MD from Last 3 Months [...] Info) Description 01/24/2025 8:30 AM EDT Telemedicine [facility] [address] [place] [address] Gabriel Rothman MD [address] [place] [address] 03/03/2025 8:30 AM EDT Telemedicine [facility] [address] [place] [address] Corey Canseco MD [address] [place] [address] Health Maintenance Due Date Last Done Comments [...] topic Meningococcal Vaccine Aged Out No jarek rmo eligible based on patient's age to complete this topic RSV under 20 months Aged Out No longe r eligible based on patient's age to complete this topic Rotavirus Vaccines Aged Out No longer eligible based on patient's age to complete this topic Procedures Procedure Name Priority Date/Time Associated Diagnosis Comments MR LUMBAR SPINE WO CONTRAST Routine 12/14/2024 10:13 AM EDT Chronic bilateral low back pain with right-sided sciatica XR PRE MRI SCREENING Routine 12/14/2024 9:10 [...] complication, without long-term current use of insulin ([facility]) POCT GLUCOSE Routine 11/30/2024 9:30 AM EDT Type 2 diabetes mellitus without complication, without long-term current use of insulin (CMS/HCC) POCT GLYCATED HEMOGLOBIN, TOTAL Routine 11/30/2024 9:19 AM EDT Type 2 diabetes mellitus without complication, without long-term current use of insulin (CMS/HCC) HM DIABETES EYE EXAM Routine 11/10/2024 9:37 AM [...] Recently Relevant to Health Maintenance Results * MR Lumbar Spine w/o Contrast (12/14/2024 10:13 AM EDT) Anatomical Region Laterality Modality Spine, L-spine Magnetic Resonan ce 12/14/2024 10:1 3 AM EDT Narrative 12/14/2024 11:39 AM EDT ? [facility] ?[address] ?[place] [address] ? Magnetic Resonance Report ? Signed ? Patient: Tobias,Olive ?MR#: [id number] ?? 7 ? : 1955 ?Acct:[id number] ? Age/Sex: 69 / M ?ADM Date: 04/02/25 ? Loc: HO.MRI ? Attending Dr: Corey Carcamo MD ? Ordering Physician: Corey Canseco MD ?? Date of Service: 12/14/24 ?? Procedure(s): MR lumbar spine wo con ?? Accession Number(s): [id number] ? cc: Corey Canseco MD ? EXAMINATION: ?? MR LUMBAR SPINE WITHOUT CONTRAST ? CLINICAL INFORMATION: ?? Back pain. ? COMPARISON: ?? None available. ? TECHNIQUE: ?? MRI of the lumbar spine was obtained using routine sequences without ?? contrast. ? FINDINGS: ?? Last rib-bearing vertebra labeled T12. ?? There is a bone marrow STIR signal in the superior endplate of L5 and ?? extending into the posterior elements and to a lesser extent the ?? posterior elements of L4 and L3. ?? There is a grade 1 anterolisthesis at L4-5. ?? There is bone marrow inhomogeneity. ?? There is the marginal osteophyte formation and disc desiccation more ?? conspicuous at L4-5. ? Conus medullaris ends at pedicle of L1 with normal signal. ? T12-L1: ?? No disc herniation. No neuroforamina stenosis. ? L1-2: ?? Broad-based disc bulging. Facet joint and ligamentum flavum ?? hypertrophy. No compression upon neural elements. ? L2-3: ?? Broad-based disc bulging. Facet joint and ligamentum flavum ?? hypertrophy. Reduced AP diameter of the thecal sac and the neural ?? foramina. ? L3-4: ?? Broad-based disc bulging. Facet joint and ligamentum flavum ?? hypertrophy. Reduced AP diameter of the thecal sac and neuroforamina. ? L4-5: ?? Broad-based disc bulging. ?? Facet joint and ligamentum flavum hypertrophy. ?? There is a 5 mm fluid signal characteristic lesion within the medial ?? aspect of the right facet joint and anterior to ligamentum flavum ?? extending into the central spinal canal. There is CSF effacement of the ?? thecal sac and central spinal canal stenosis compressing the neural ?? elements of the thecal sac. ?? There is bilateral neuroforamina stenosis encroaching the L4 exiting ?? nerve roots. ? L5-S1: ?? Broad-based disc bulging. Facet joint hypertrophy. There is right ?? neuroforamina and stenosis on a degenerative basis likely compressing ?? the right L5 exiting nerve root. ? MR/MR lumbar spine wo con ?? IMPRESSION: ?? 5 mm synovial cyst, right L4-5 facet joint and spondylosis with grade 1 ?? anterolisthesis at L4-5 compressing the neural elements of the thecal ?? sac and the L4 exiting nerve roots. ? Multilevel lumbar spondylosis L2-3 to L5-S1 likely encroaching the ?? neural elements. ?? Right foramen stenosis, L5-S1, compressing the right L5 exiting nerve ?? root on a degenerative basis. ? Electronically signed by: ??Bryon Becerra MD ??12/14/2024 11:35 AM ?? EDT RP ? Dictated By: ?Bryon Reis MD ? Signed By: ?<Electronically signed by Bryon Sabillon MD in OV> ? 12/14/24 1135 ? DD/ 1013 ? TD/TT: 12/14/24 1030 ? Leisure Studies Professor: ? Procedure Note Jose Carlos, Image - 12/14/2024 [place] [address] Magnetic Resonance Report Signed Patient: Iona Tobias#: [id number] 7 : 6Acct:[id number] Age/Sex: 69 / MADM Date: 12/14/24 Loc: HO.MRI Attending Dr: Corey Carcamo MD Ordering Physician: Corey Canseco MD Date of Service: 12/14/24 Procedure(s): MR lumbar spine wo con Accession Number(s): [id number] cc: Corey Canseco MD EXAMINATION: MR LUMBAR SPINE WITHOUT CONTRAST CLINICAL INFORMATION: Back pain. COMPARISON: None available. TECHNIQUE: MRI of the lumbar spine was obtained using routine sequences without contrast. FINDINGS: Last rib-bearing vertebra labeled T12. There is a bone marrow STIR signal in the superior endplate of L5 and extending into the posterior elements and to a lesser extent the posterior elements of L4 and L3. There is a grade 1 anterolisthesis at L4-5. There is bone marrow inhomogeneity. There is the marginal osteophyte formation and disc desiccation more conspicuous at L4-5. Conus medullaris ends at pedicle of L1 with normal signal. T12-L1: No disc herniation. No neuroforamina stenosis. L1-2: Broad-based disc bulging. Facet joint and ligamentum flavum hypertrophy. No compression upon neural elements. L2-3: Broad-based disc bulging. Facet joint and ligamentum flavum hypertrophy. Reduced AP diameter of the thecal sac and the neural foramina. L3-4: Broad-based disc bulging. Facet joint and ligamentum flavum hypertrophy. Reduced AP diameter of the thecal sac and neuroforamina. L4-5: Broad-based disc bulging. Facet joint and ligamentum flavum hypertrophy. There is a 5 mm fluid signal characteristic lesion within the medial aspect of the right facet joint and anterior to ligamentum flavum extending into the central spinal canal. There is CSF effacement of the thecal sac and central spinal canal stenosis compressing the neural elements of the thecal sac. There is bilateral neuroforamina stenosis encroaching the L4 exiting nerve roots. L5-S1: Broad-based disc bulging. Facet joint hypertrophy. There is right neuroforamina and stenosis on a degenerative basis likely compressing the right L5 exiting nerve root. MR/MR lumbar spine wo con IMPRESSION: 5 mm synovial cyst, right L4-5 facet joint and spondylosis with grade 1 anterolisthesis at L4-5 compressing the neural elements of the thecal sac and the L4 exiting nerve roots. Multilevel lumbar spondylosis L2-3 to L5-S1 likely encroaching the neural elements. Right foramen stenosis, L5-S1, compressing the right L5 exiting nerve root on a degenerative basis. Electronically signed by: Bryon Becerra MD 12/14/2024 11:35 AM EDT Dictated By: Bryon Reis MD Signed By: <Electronically signed by Bryon Sabillon MDin OV> 12/14/24 1135 DD/ 1013 TD/TT: 12/14/24 1030 Leisure Studies Professor: us Corey Carcamo MD IMG MRI PROCEDURES Edited Result - Final * XR PRE MRI SCREENING (12/14/2024 9:10 AM EDT) Anatomical Region Laterality Modality Abdomen Radiographic Kristi ging 12/14/2024 9:10 AM EDT Narrative 12/14/2024 9:33 AM EDT ? [facility] ?[address] ?[place] [address] ?XRay Report ? Signed ? Patient: Olive Tobias ?MR#: [id number] ?? 7 ? : 1955 ?Acct:[id number] ? Age/Sex: 69 / M ?ADM Date: 12/14/24 ? Loc: HO.MRI ? Attending Dr: Corey Carcamo MD ? Ordering Physician: Shaq Douglass MD ?? Date of Service: 12/14/24 ?? Procedure(s): XR pre mri screening ?? Accession Number(s): [id number] ? cc: Corey Canseco MD; Shaq Douglass [...] DD/ 0910 ? TD/TT: 12/14/24 0915 ? Leisure Studies Professor: ? Procedure Note Roseann Branch - 12/14/[address] [address] XRay Report Signed Patient: Salo TobiasMendel#: [id number] 7 : 6Acct:[id number] Age/Sex: 69 / MADM Date: 12/14/24 Loc: HO.MRI Attending Dr: Corey Carcamo MD Ordering Physician: Shaq Douglass MD Date of Service: 12/14/24 Procedure(s): XR pre mri screening Accession Number(s): [id number] cc: Corey Canseco MD; Shaq Douglass MD [...] Blaze Brandt MD 12/14/2024 09:30 AM EDT RP Dictated By: Blaze Brandt MD Signed By: <Electronically signed by Blaze Brandt MD in OV> 12/14/[address] DD/ 0910 TD/TT: 12/14/24 0915 Leisure Studies Professor: [facility] External Provider IMG XR PROCEDURES Edited Result - Final * (ABNORMAL) Glucose, Whole Blood (12/02/2024 1:17 PM EDT) Glucose, Whole Blood 120(H) 60 - 115 mg/dL [facility] Comment:METER #: [id number] 12/02/2024 1:17 PM EDT 12/02/2024 1:20 PM EDT Generic External Data Provider LAB BLOOD ORDERAB LES Final Result [facility] [address] [place] [phone] * Albumin, Random Urine W/Creatinine (12/02/2024 10:13 AM EDT) Creatinine, Urine 84.75 mg/dL [facility] Microalbumin Urine 8.0 mg/L H [facility] Microalbum Creatinine Ratio Ur 9.4 <30 ug/mg cr [facility] Comment:Albumin/Creatinine R atio Reference Ranges: Normal: < 30 ug/mg creatinine Microalbuminuria: 30 - 300 ug/mg creatinineClinical Albuminuria: > 300 ug/mg creatinine Urine (Urine, Random) 12/02/2024 10:13 AM EDT 12/02/2024 2:08 PM EDT us Corey Carcamo MD LAB URINE ORDERABL ES Final Result Performing Organization Address [facility]ZIP Co de Phone Number [facility] [address] [place] [phone] * TSH W/Reflex to FT4 (12/02/2024 10:11 AM EDT) TSH reflex Free T4 1.17 0.32 - 4.0 uIU/mL [facility] Blood Venous blood specimen / Unknown 12/02/2024 10:11 AM EDT 12/02/2024 2:05 PM EDT us Corey Carcamo MD LAB BLOOD ORDERABL ES Final Result Performing Organization Address [facility] Co de Phone Number [facility] [address] [place] [phone] * (ABNORMAL) CBC auto differential (12/02/2024 10:11 AM EDT) White Blood Count 7.1 4.8 - 10.8 X10*3/uL [facility] Red Blood Count 6.14(H) 4.60 - 5.80 X10*6/uL [facility] Hemoglobin 15.7 14.0 - 18.0 g/dl [facility] Hematocrit 50.0 42.0 - 52.0 % [facility] Mean Corpuscular Volume 81.4 80.0 - 98.0 fL [facility] Mean Corpuscular Hemoglobin 25.6(L) 27.0 - 33.0 pg [facility] Mean Corpuscular HGB Conc 31.4 31.0 - 36.0 g/dl [facility] Red Cell Distribution Width 17.4(H) 11.0 - 16.0 % [facility] Platelet Count 177 160 - 400 X10*3/uL [facility] Mean Platelet Volume 9.9 9.4 - 12.4 fL [facility] Neutrophils Percent Auto 72.2 45 - 73 % [facility] Imm Gran Pct Auto 0.6(H) 0.0 - 0.4 % [facility] Lymphocytes Percent Auto 14.1(L) 20 - 40 % [facility] Monocytes Percent Auto 10.3 2 - 11 % [facility] Eosinophils Percent Auto 2.4 0 - 4 % [facility] Basophils Percent Auto 0.4 0 - 2 % [facility] NRBC Pct Auto 0.0 0.0 - 0.2 /100WBC [facility] Neutrophils Absolute Auto 5.1 2.0 - 8.3 x10*3/uL [facility] Imm Gran Abs Auto 0.04(H) 0.00 - 0.03 X10*3/uL [facility] Lymphocytes Absolute Auto 1.0(L) 1.2 - 4.9 X10*3/uL [facility] Monocytes Absolute Auto 0.7 0.1 - 1.2 X10*3/uL [facility] Eosinophils Absolute Auto 0.2 0.0 - 0.4 X10*3/uL [facility] Basophils Absolute Auto 0.0 0.0 - 0.2 X10*3/uL [facility] NRBC Abs Auto 0.000 0.0 - 0.012 X10*3/uL [facility] Blood Venous blood specimen / Unknown 12/02/2024 10:11 AM EDT 12/02/2024 2:05 PM EDT us Corey Carcamo MD LAB BLOOD ORDERABL ES Final Result [facility] [address] [place] [phone] * (ABNORMAL) Lipid Panel, Standard (12/02/2024 10:11 AM EDT) Triglycerides 114 <150 mg/dL [facility] Comment:Desirable Triglyceri de: less than 150 mg/dLBorderline High Triglyceride 150-199 mg/dLHigh Triglyceride: 200-499 mg/dLVery High Triglyceride: greater than or equal to 5OO mg/dL Cholesterol 119 <200 mg/dL [facility] Comment:Desirable Cholestero l: less than 200 mg/dLBorderline High Cholesterol: 200-239 mg/dLHigh Cholesterol: greater than 239 mg/dL LDL Cholesterol Calculated 69 <100 mg/dL [facility] Comment:Desirable LDL: less than 100 mg/dLNear Optimal/Above Optimal LDL: 110- 129 mg/dLBorderline High LDL: 130-159 mg/dLHigh LDL: 160-189 mg/dLVery High LDL: greater than or equal to 190 mg/dL HDL Cholesterol 28(L) >40 mg/dL [facility] Comment:Desirable HDL: great er than 40 mg/dL Note: This HDL assay may give artificially low results in patients with liver disease. Blood Venous blood specimen / Unknown 12/02/2024 10:11 AM EDT 12/02/2024 2:05 PM EDT Corey Carcamo MD LAB BLOOD ORDERABL ES Final Result [facility] [address] [place] [phone] * (ABNORMAL) Comprehensive Metabolic Panel (12/02/2024 10:11 AM EDT) Sodium 139 135 - 145 mmol/L [facility] Potassium 4.5 3.3 - 5.1 mmol/L [facility] Chloride 108 96 - 108 mmol/L [facility] Carbon Dioxide 23 22 - 29 mmol/L [facility] Anion Gap 13 12 - 20 [facility] Urea Nitrogen (BUN) 16 9 - 16 mg/dL [facility] Creatinine, Serum 0.80 0.5 - 1.4 mg/dL [facility] Estimated Glomerular Filt Rate >60 [facility] Comment:Chronic Kidney Disea se: Estimated GFR < 60 mL/min/1.38f7Brwzxf Kidney Disease: Estimated GFR < 15 mL/min/1.73m2 Glucose 114 60 - 115 mg/dL [facility] Calcium 9.1 8.4 - 10.2 mg/dL [facility] Bilirubin, Total 0.8 0.0 - 1.0 mg/dL [facility] Aspartate Amino Transferase 21 5 - 37 U/L [facility] Alanine Aminotransferase 20 0 - 40 U/L [facility] Total Protein 8.2(H) 6.5 - 8.0 g/dL [facility] Albumin Level 4.1 3.5 - 5.0 g/dL [facility] Alkaline Phosphatase 90 39 - 117 U/L [facility] Blood Venous blood specimen / Unknown 12/02/2024 10:11 AM EDT 12/02/2024 2:05 PM EDT Corey Carcamo MD LAB BLOOD ORDERABL ES Final Result [facility] [address] [place] [phone] * (ABNORMAL) POCT Glucose (11/30/2024 9:30 AM EDT) Glucose Blood, POC 274(A) 60 - 200 mg/dL [employer] Lot # [id number] Lot# Expiration Date [id number] Blood Capillary blood specimen / Unknown 11/30/2024 9:30 AM EDT Corey Carcamo MD POINT OF CARE TEST ENTER/EDIT ORDERABLES Final Result * (ABNORMAL) POCT HGB A1C (11/30/2024 9:19 AM EDT) Hemoglobin A1C 7.3(A) 4.0 - 6.0 % QC Media Lot # [id number] Lot# Expiration Date Blood 11/30/2024 9:19 AM EDT Result [facility] Corey Carcamo MD POINT OF CARE TEST ENTER/EDIT ORDERABLES Final Result * Diabetes Eye Exam (11/10/2024 9:37 AM EST) Historical Provider HEALTH MAINTENANCE Final Result * Colonoscopy (04/10/2023 12:03 PM EDT) Result [facility] Provider HEALTH MAINTENANCE Final Result * Hepatitis C Antibody with Reflex to HCV, RNA, Quantitative, Real-Time PCR (09/24/2022 10:33 AM EST) Hepatitis C Antibody NON-REACT MARK NON-REACT MARK [employer] [place] [employer] Index <0.02 <1.00 Jounce Comment: HCV antibody was non-reactive. There is no laboratory evidence of HCV infection. In most cases, no further action is required. However, if recent HCV exposure is suspected, a test for HCV RNA (test code 58022) is suggested. For additional information please refer to http://education.L3.Tackk/faq/XBX59r1 (This link is being provided for informational/ educational purposes only.) 09/24/2022 10:3 3 AM EST 09/24/2022 10:33 AM EST Narrative [facility] - 09/24/2022 9:25 PM EST FASTING:NO FASTING: NO Result [facility] Corey Carcamo MD LAB BLOOD ORDERABL ES Final Result [facility] [address], [place] [phone] [employer] [place] [employer] [address] [facility], ([address]) [place] [phone] from Last 3 Months or Most Recently Relevant to Health Maintenance Insurance [place], [place] [facility] MEDICARE REPLACEMENT [place], [place] [facility] Care Teams Tobacco Sizer Relationship Specialty Start Date End Date Corey Canseco MD [address] [place] [address] PCP - General Internal Medicine 09/09/19
--- OUTSIDE RECORDS SUMMARY | 2024-12-19 08:54 | XMS_ITS | Encounter Summary ---
Author Organization [employer] Address [address] 7t [place] [address] Care Team Providers Care Flatwork Assembler Name Role Phone Corey Canseco MD Primary Care Prov ider Encounter Details Date Type Department Care Team (Late st Contact Info) Description 12/25/2023 Orders Only [facility] MEDICINE [address] [place] [address] ProviderМарина MD Social History Tobacco Use Types [...] Info) Description 01/24/2025 8:30 AM EDT Telemedicine [facility] [address] [place] [address] Gabriel Rothman MD 230 [place] [address] 03/03/2025 8:30 AM EDT Telemedicine [facility] MED & PEDS 505 [place] [address] Corey Canseco MD 505 [place], [place] [phone] documented as of this encounter Procedures Procedure [...] EDT Narrative 01/14/2024 4:15 PM EDT ? [facility] ?[address] ?[place] [address] ? CT Scan Report ? Signed ? Patient: Olive Tobias ?MR#: [id number] ?? 7 ? : 1955 ?Acct:[id number] ? Age/Sex: 68 / M ?ADM Date: 01/14/24 ? Loc: HO.CT ? Attending Dr: Jon Meza MD ? Ordering Physician: Jon Meza MD ?? Date of Service: 01/14/24 ?? Procedure(s): CT shoulder LT wo IV con ?? Accession Number(s): [id number] ? cc: Corey Canseco MD; Jon Meza [...] 1612 ? DD/ 0815 ? TD/TT: ? Roller Skater: RK ? Procedure Note Jose Carlos, Roseann - 01/14/[address] [place] [address] [address] Scan Report Signed Patient: Iona Tobias#: [id number] 7 : 6Acct:[id number] Age/Sex: 68 / MADM Date: 01/14/24 Loc: HO.CT Attending Dr: Jon Meza MD Ordering Physician: Jon Meza MD Date of Service: 01/14/24 Procedure(s): CT shoulder LT wo IV con Accession Number(s): [id number] cc: Corey Canseco MD; Jon Meza MD [...] in OV> 01/14/24 1612 DD/ 0815 TD/TT: Roller Skater: NEREYDA [facility] External Provider IMG CT PROCEDURES Final Result * Hm Colonoscopy (04/10/2023 12:03 PM EDT) Historical Provider HEALTH MAINTENANCE Final Result documented in this encounter Visit Diagnoses Not on filedocumented in this encounter Additional Health Concerns Assessment Noted Time PHQ-9 Depression Total Score: 6 12/24/19 24 9:28 AM EDT documented as of this encounter Care Teams Flatwork Assembler Relationship Specialty Start Date End Date Corey Canseco MD [address] [place] [address] PCP - General Internal Medicine 09/09/19 documented as of this encounter
--- OUTSIDE RECORDS SUMMARY | 2024-12-19 08:55 | XMS_ITS | Encounter Summary ---
Author Organization [employer] Address [address] [place] [address] 7t [place] [address] Care Team Providers Care Garbage Collection Supervisor Name Role Phone Corey Canseco MD Primary Care Prov ider Encounter Details Date Type Department Care Team (Late st Contact Info) Description 11/11/2024 Orders Only [facility] 230 [place] [address] Provider, MD Марина Social History Tobacco Use [...] 01/24/2025 8:30 AM EDT Telemedicine [facility] MEDICINE 230 [place] [address] Gabriel Rothman MD 230 [place] [address] 03/03/2025 8:30 AM EDT Telemedicine [facility] CHC MED & PEDS 505 [place] [address] Corey Canseco MD 505 [place] [address] documented as of this encounter Procedures Procedure [...] documented as of this encounter Care Teams Garbage Collection Supervisor Relationship Specialty Start Date End Date Corey Canseco MD [address] [place] [address] PCP - General Internal Medicine 09/09/19 documented as of this encounter
== END 2024-12-19 08:55 | disposition home or self-care (01) ==
PROVIDERS: PCP Internal Medicine; Visit Provider Nurse Practitioner Family
DX: K64.8 Other hemorrhoids (principal); K52.9 Noninfective gastroenteritis and colitis, unspecified
CPT/HCPCS: 99213

== ENCOUNTER → 2024-12-19 08:23 | Outpatient (BNVA) | payer MEDICARE, SELFPAY | PROVIDERS: PCP Internal Medicine; Visit Provider Nurse Practitioner Family | DX: K64.8 Other hemorrhoids (principal); K59.00 Constipation, unspecified; K52.9 Noninfective gastroenteritis and colitis, unspecified; M47.816 Spondylosis without myelopathy or radiculopathy, lumbar region | CPT/HCPCS: 99212 ==

== ENCOUNTER 2024-12-20 08:52 | Outpatient (AMB) | payer MEDICARE, SELFPAY ==
--- NOTE | 2024-12-20 08:54 | A.SPINEOV_ITS ---
Vital Signs 12/20/24 08:59 Height 5 ft 7 in Weight 285 lb BMI 44.6 Intake Visit Reasons: LBP(Urgent referral) Intake Note: Mr. Tobias is here today c/o Low back pain. Control Systems Drafting Officer Required: No Allergies iron Allergy (Severe, Verified 12/20/24 09:00) Rash ( from oral supplement) Physical Exam Vital Signs: BMI result Body Mass Index 44.6 Assessment & Plan Assessment & Plan (1) Back pain: Code(s): M54.9 - Dorsalgia, unspecified Category: Medical (2) Synovial cyst of lumbar facet joint: Code(s): M71.38 - Other bursal cyst, other site Category: Medical Plan Dear Jodi, Thank you for referring Mr Tobias to our office today. He is a very nice 69-year-old diabetic gentleman with history of 8 or 9 months of feelings of tingling in his legs and trouble walking, who over the last month or more has developed severe right-sided low back pain radiating into his right buttock. Over the last few months he has also developed some intermittent numbness of his perineal area. Does not have any bowel or bladder incontinence, but has what he describes as fecal smearing. 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 He reports intermittent issues with his back on and off for a long time. He was told at 1 point he might need surgery on his back but he never had enough symptoms to justify an operation. He believes he saw someone at [facility] at that time. Through the years he is just more less dealt with it but when the trouble walking started last summer, the peroneal numbness and now the severe back pain right buttock pain he feels as though it is time to take a closer look as to what can be done fix it. He does take Tylenol to help with the back pain. He had taken tramadol previously as well. He can not take anti-inflammatories because of history of AFib on Eliquis but does take p.r.n. Celebrex from time to time. He has had no dedicated conservative treatment yet other than just trying to wait it out and take some medications. PMH: History of diabetes but his A1c is 7.2, history of hypertension, AFib on Eliquis and flecainide. He has been cardioverted recently and is pending an evaluation for possible ablation. He is followed here at [facility] for his cardiac issues but was seeing the [facility] electrophysiology team. History of sleep apnea, bilateral knee replacement. History of carpal tunnel release, rotator cuff repair, left shoulder replacement up by Dr. Meza, left hernia repair in the groin when he was a child, ulnar nerve decompression. Denies any history of heart attacks, strokes, liver disease, kidney disease, blood clots, cancer or major abdominal surgery Social hx: He does not smoke, he does use marijuana gummies daily. He had a period of time in his life when he was a heavy drinker but now he just drinks occasionally. Medications: Atorvastatin, cetirizine, Eliquis, flecainide, Jardiance, lisinopril, metoprolol, montelukast, Flomax, vitamin B12, vitamin D3, Trulicity, Celebrex and gabapentin Allergies: None Physical exam: Awake alert oriented no acute distress, he is morbidly obese, 5 ft 7, 285 lb full strength of upper and lower extremities with normal reflexes Imaging review: Lumbar MRI done here at [facility] shows multilevel degenerative disc disease, he has a congenitally narrowed spinal canal he has facet arthropathy at L4-5 with a large right L4-5 medial facing synovial cyst which is causing severe central canal stenosis. He also has right L5 foraminal stenosis. I did standing flexion-extension x-rays here today in the office. It looks like he develops a grade 1-2 spondylolisthesis in the standing position. Impression: 69-year-old diabetic male, AFib on Eliquis, presents with inte rmittent numbness of his legs, claudicating leg pains, intermittent numbness of his peroneal area more recently, severe right-sided low back pain radiating into his buttock who has a synovial cyst at L4-5 with severe stenosis and what looks like instability on his x-ray. I will review his imaging with Dr. Santoyo, but I think he is going to offer him an L4-5 oblique lumbar interbody fusion. I did go over the various options for surgery with the patient, but at this point would like to get a finalize plan with Dr. Pennings and then we can bring him back and sit down and go over expectations, surgical questions, recovery etc.. Although typically the insurance companies wants some form of conservative management before surgery, I think in light of the instability on his x-rays we can forego this. He understands he will have to stop his Eliquis 3 days prior to surgery which does bring with it a small risk of stroke. He will also have to stop his Jardiance 3 days before surgery and his Trulicity 1 week before surgery. Thank you for allowing us to care for your patient. The total time spent with this visit with this patient was 45 minutes reviewing history, physical exam, lumbar imaging review, and implementation of treatment plan or further diagnostic testing Jose Santoyo MD,PhD [facility] Orders: Orders XR lumbar spine 4V min Today M54.9 - Dorsalgia, unspecified, M71.38 - Other bursal cyst, other site Coding Level of Care Code New Pt Level 4 (79839) Diagnoses Back pain M54.9 Synovial cyst of lumbar facet joint M71.38
[2024-12-20 08:59] VITALS: BMI 44.6
--- OUTSIDE RECORDS SUMMARY | 2024-12-20 09:27 | XMS_ITS | Encounter Summary ---
Author Organization [employer] Address [address] [place] [address] Care Team Providers Care Inspector Water Pollution Control Name Role Phone Corey Canseco MD Primary Care Prov ider Encounter Details Date Type Department Care Team (Latest Contact Info) Description 09/26/2019 Abstract [facility] CONVERSIONS Dental, Provider, DDS Social History Tobacco [...] Info) Description 01/24/2025 8:30 AM EDT Telemedicine [facility] MEDICINE 230 [place] [address] Gabriel Rothman MD 230 [place] [address] 03/03/2025 8:30 AM EDT Telemedicine [facility] CHC MED & PEDS [address] [place] [address] Corey Canseco MD 505 [place], [place] documented as of this encounter Visit Diagnoses Not on filedocumented in this encounter Care Teams Inspector Water Pollution Control Relationship Specialty Start Date End Date ChambersCorey Grace MD [address] [place] [address] PCP - General Internal Medicine 09/09/19 documented as of this encounter
--- OUTSIDE RECORDS SUMMARY | 2024-12-20 09:27 | XMS_ITS | Encounter Summary ---
Author Organization [employer] Address [address] [place] [address] 7 [place] [address] Care Team Providers Care Almond Huller Name Role Phone Corey Canseco MD Primary Care Prov ider Reason for Visit * Reason Comments Med Refill Encounter Details Date Type Department Care Team ([facility] Contact Info) Description 07/04/2024 Refill [facility] CHC MED & PEDS 505 [place] [address] Corey Canseco MD 505 [place] [address] Social History Tobacco Use Types Packs/Day Years [...] Info) Description 01/24/2025 8:30 AM EDT Telemedicine [facility] MEDICINE 230 [place] [address] Gabriel Rothman MD 230 [place] [address] 03/03/2025 8:30 AM EDT Telemedicine [facility] CHC MED & PEDS [address] [place], [place] [phone] Corey Canseco MD 505 [place] [address] documented as of this encounter Visit Diagnoses Not on filedocumented in this encounter Additional Health Concerns Assessment Noted Time PHQ-9 Depression Total Score: 9 05/19/20 24 9:41 AM EDT documented as of this encounter Care Teams Almond Huller Relationship Specialty Start Date End Date Corey Canseco MD [address] [place] [address] PCP - General Internal Medicine 09/09/19 documented as of this encounter
--- OUTSIDE RECORDS SUMMARY | 2024-12-20 09:27 | XMS_ITS | Encounter Summary ---
Author Organization [employer] Address [address] [place] [address] Care Team Providers Care Programmer Developer Name Role Phone Corey Canseco MD Primary Care Prov ider Encounter Details Date Type Department Care Team (Latest Contact Info) Description 09/28/2020 Abstract [facility] CONVERSIONS Dental, Provider, DDS Social History Tobacco [...] 01/24/2025 8:30 AM EDT Telemedicine [facility] MEDICINE 230 [place] [address] Gabriel Rothman MD 230 [place] [address] 03/03/2025 8:30 AM EDT Telemedicine [facility] CHC MED & PEDS 505 [place] [address] Corey Canseco MD 505 [place], [place] documented as of this encounter Visit Diagnoses Not on filedocumented in this encounter Care Teams Programmer Developer Relationship Specialty Start Date End Date ChambersCorey Grace MD [address] [place] [address] PCP - General Internal Medicine 09/09/19 documented as of this encounter
--- OUTSIDE RECORDS SUMMARY | 2024-12-20 09:27 | XMS_ITS | Encounter Summary ---
Author Organization [employer] Address [address] [place] [address] 7t [place] [address] Care Team Providers Care Seconds Handler Name Role Phone Corey Canseco MD Primary Care Prov ider Encounter Details Date Type Department Care Team (Late st Contact Info) Description 11/11/2024 Orders Only [facility] 230 [place] [address] Provider, MD Марина Social History Tobacco Use [...] Info) Description 01/24/2025 8:30 AM EDT Telemedicine [facility] MEDICINE 230 [place] [address] Gabriel Rothman MD 230 [place] [address] 03/03/2025 8:30 AM EDT Telemedicine [facility] CHC MED & PEDS 505 [place] [address] Corey Canseco MD 505 [place] [address] documented as of this encounter Procedures Procedure [...] documented as of this encounter Care Teams Seconds Handler Relationship Specialty Start Date End Date Corey Canseco MD [address] [place] [address] PCP - General Internal Medicine 09/09/19 documented as of this encounter
--- OUTSIDE RECORDS SUMMARY | 2024-12-20 09:27 | XMS_ITS | Encounter Summary ---
Author Organization [employer] Address [address] [place] [address] Care Team Providers Care A And P Mechanic Name Role Phone Corey Canseco MD Primary Care Prov ider Reason for Referral * Imaging (Routine) - Closed Specialty Diagnoses / Procedures Referred By Contac t Referred To Contact Radiology Diagnoses Chronic left shoulder pain Procedures MR Shoulder w/o Contrast Left Corey Canseco MD 505 [place] [address] Phone: tel: fax: [address] Phone: tel: fax: Referral ID Status Reason Start Date Expiration Date Visits Re quested Visits Authorized [id number] Closed 12/02/2023 12/01/2024 1 1 Encounter Details Date Type Department Care Team (Late st Contact Info) Description 12/02/2023 Orders Only [facility] CHC MED & PEDS 505 [place] [address] Corey Canseco MD 505 [place] [address] Chronic left shoulder pain (Primary Dx) Social [...] Info) Description 01/24/2025 8:30 AM EDT Telemedicine [facility] MEDICINE 230 [place] [address] Gabriel Rothman MD 230 [place] [address] 03/03/2025 8:30 AM EDT Telemedicine [facility] CHC MED & PEDS [address] [place] [address] Corey Canseco MD 505 [place] [address] Scheduled Orders Name Type Priority Associated Diagnoses [...] documented as of this encounter Care Teams A And P Mechanic Relationship Specialty Start Date End Date Corey Canseco MD 505 [place] [address] PCP - General Internal Medicine 09/09/19 documented as of this encounter
--- OUTSIDE RECORDS SUMMARY | 2024-12-20 09:27 | XMS_ITS | Encounter Summary ---
Author Organization [employer] Address [address] [place] [address] [facility] [place] [address] Care Team Providers Care Die Casting Machine Operator Name Role Phone Corey Canseco MD Primary Care Prov ider Reason for Visit * Reason Comments Med Refill Encounter Details Date Type Department Care Team (Late Contact Info) Description 03/20/2023 Refill [facility] CHC MED & PEDS 505 [place] [address] Corey Canseco MD 505 [place] [address] Social History Tobacco Use Types Packs/Day Years [...] Upcoming Encounters Date Type Department Care Team ([facility] Contact Info) Description 01/24/2025 8:30 AM EDT Telemedicine [facility] MEDICINE 230 [place], [place] [phone] Gabriel Rothman MD 230 [place] [address] 03/03/2025 8:30 AM EDT Telemedicine [facility] CHC MED & PEDS 505 [place], [place] [phone] Corey Canseco MD 505 [place], [place] [phone] documented as of this encounter Visit Diagnoses Not on filedocumented in this encounter Additional Health Concerns Assessment Noted Time PHQ-9 Depression Total Score: 0 12/20/19 23 9:39 AM EDT documented as of this encounter Care Teams Die Casting Machine Operator Relationship Specialty Start Date End Date Corey Canseco MD 505 [place], [place] [phone] PCP - General Internal Medicine 09/09/19 documented as of this encounter
--- OUTSIDE RECORDS SUMMARY | 2024-12-20 09:27 | XMS_ITS | Encounter Summary ---
Author Organization [employer] Address [address] [facility] 7t [place] [address] Care Team Providers Care Steam Cleaner Name Role Phone Corey Canseco MD Primary Care Prov ider Encounter Details Date Type Department Care Team (Late st Contact Info) Description 09/30/2023 Abstract [facility] CHC ADULT DENTAL [address] [place] [address] Maryana Penn, DDS 505 [place] [address] Social History Tobacco Use Types Packs/Day Years [...] Info) Description 01/24/2025 8:30 AM EDT Telemedicine [facility] MEDICINE 230 [place] [address] Gabriel Rothman MD 230 [place] [address] 03/03/2025 8:30 AM EDT Telemedicine [facility] CHC MED & PEDS 505 [place] [address] Corey Canseco MD 505 [place] [address] documented as of this encounter Visit Diagnoses Not on filedocumented in this encounter Additional Health Concerns Assessment Noted Time PHQ-9 Depression Total Score: 5 08/27/20 23 9:37 AM EST documented as of this encounter Care Teams Steam Cleaner Relationship Specialty Start Date End Date Corey Canseco MD 505 [place] [address] PCP - General Internal Medicine 09/09/19 documented as of this encounter
--- OUTSIDE RECORDS SUMMARY | 2024-12-20 09:27 | XMS_ITS | Encounter Summary ---
Author Organization [employer] Address [address] [place] [address] 7 [place] [address] Care Team Providers Care Regional Facilities Manager Name Role Phone Corey Canseco MD Primary Care Prov ider Reason for Visit * Reason Comments Med Refill Encounter Details Date Type Department Care Team (Late Contact Info) Description 04/05/2023 Refill [facility] CHC MED & PEDS 505 [place] [address] Corey Canseco MD 505 [place] [address] Mixed hyperlipidemia Social History Tobacco Use Types [...] Upcoming Encounters Date Type Department Care Team ([facility] Contact Info) Description 01/24/2025 8:30 AM EDT Telemedicine [facility] MEDICINE 230 [place], [place] [phone] Gabriel Rothman MD 230 [place] [address] 03/03/2025 8:30 AM EDT Telemedicine [facility] CHC MED & PEDS 505 [place], [place] [phone] Corey Canseco MD [address] [place], [place] [phone] documented as of this encounter Visit Diagnoses Diagnosis Mixed hyperlipidemia documented in this encounter Additional Health Concerns Assessment Noted Time PHQ-9 Depression Total Score: 0 12/20/19 23 9:39 AM EDT documented as of this encounter Care Teams Regional Facilities Manager Relationship Specialty Start Date End Date Corey Canseco MD 505 [place] [address] PCP - General Internal Medicine 09/09/19 documented as of this encounter
--- OUTSIDE RECORDS SUMMARY | 2024-12-20 09:27 | XMS_ITS | Encounter Summary ---
Author Organization [employer] Address [address] [facility] 7 [place] [address] Care Team Providers Care Technical Sales Representative Name Role Phone Corey Canseco MD Primary Care Prov ider Encounter Details Date Type Department Care Team (Late st Contact Info) Description 06/01/2024 Orders Only [facility] CHC MED & PEDS 505 [place] [address] Corey Canseco MD 505 [place] [address] Social History Tobacco Use Types Packs/Day Years [...] Info) Description 01/24/2025 8:30 AM EDT Telemedicine [facility] MEDICINE 230 [place] [address] Gabriel Rothman MD 230 [place] [address] 03/03/2025 8:30 AM EDT Telemedicine [facility] CHC MED & PEDS 505 [place] [address] Corey Canseco MD 505 [place] [address] documented as of this encounter Visit Diagnoses Not on filedocumented in this encounter Additional Health Concerns Assessment Noted Time PHQ-9 Depression Total Score: 9 05/19/20 24 9:41 AM EDT documented as of this encounter Care Teams Technical Sales Representative Relationship Specialty Start Date End Date Corey Canseco MD 505 [place] [address] PCP - General Internal Medicine 09/09/19 documented as of this encounter
--- OUTSIDE RECORDS SUMMARY | 2024-12-20 09:27 | XMS_ITS | Encounter Summary ---
Author Organization [employer] Address [address] [facility] [address] [facility] [address] 7t [place] [address] Care Team Providers Care Street Light Servicer Helper Name Role Phone Corey Canseco MD Primary Care Prov ider Encounter Details Date Type Department Care Team (Late st Contact Info) Description 12/25/2023 Orders Only [facility] MEDICINE [address] [place] [address] ProviderМарина MD Social History Tobacco Use Types [...] Info) Description 01/24/2025 8:30 AM EDT Telemedicine [facility] MEDICINE 230 [place] [address] Gabriel Rothman MD 230 [place] [address] 03/03/2025 8:30 AM EDT Telemedicine [facility] CHC MED & PEDS 505 [place] [address] Corey Canseco MD 505 [place], [place] [phone] documented as of this encounter Procedures Procedure [...] EDT Narrative 01/14/2024 4:15 PM EDT ? [facility] ?[address] ?[place] [address] ? CT Scan Report ? Signed ? Patient: Olive Tobias ?MR#: [id number] ?? 7 ? : 1955 ?Acct:[id number] ? Age/Sex: 68 / M ?ADM Date: 01/14/24 ? Loc: HO.CT ? Attending Dr: Jon Meza MD ? Ordering Physician: Jon Meza MD ?? Date of Service: 01/14/24 ?? Procedure(s): CT shoulder LT wo IV con ?? Accession Number(s): [id number] ? cc: Corey Canseco MD; Jon Meza [...] 1612 ? DD/ 0815 ? TD/TT: ? Scaleman: RK ? Procedure Note Jose Carlos, Roseann - 01/14/[address] [place] [address] [address] Scan Report Signed Patient: Iona Tobias#: [id number] 7 : 6Acct:[id number] Age/Sex: 68 / MADM Date: 01/14/24 Loc: HO.CT Attending Dr: Jon Meza MD Ordering Physician: Jon Mzea MD Date of Service: 01/14/24 Procedure(s): CT shoulder LT wo IV con Accession Number(s): [id number] cc: Corey Canseco MD; Jon Meza MD [...] in OV> 01/14/24 1612 DD/ 0815 TD/TT: Scaleman: NEREYDA [facility] External Provider IMG CT PROCEDURES Final Result * Hm Colonoscopy (04/10/2023 12:03 PM EDT) Historical Provider HEALTH MAINTENANCE Final Result documented in this encounter Visit Diagnoses Not on filedocumented in this encounter Additional Health Concerns Assessment Noted Time PHQ-9 Depression Total Score: 6 12/24/19 24 9:28 AM EDT documented as of this encounter Care Teams Street Light Servicer Helper Relationship Specialty Start Date End Date Corey Canseco MD [address] [place] [address] PCP - General Internal Medicine 09/09/19 documented as of this encounter
--- OUTSIDE RECORDS SUMMARY | 2024-12-20 09:27 | XMS_ITS | Encounter Summary ---
Author Organization [employer] Address [address] [place] [address] 7 [place] [address] Care Team Providers Care Gm/Svp Global Publisher Business Name Role Phone Corey Canseco MD Primary Care Prov ider Reason for Visit * Reason Onset Date Comments Results 12/15/2024 Encounter Details Date Type Department Care Team ([facility] Contact Info) Description 12/15/2024 Telephone [facility] CHC MED & PEDS [address] [place] [address] Corey Canseco MD [address] [place] [address] Results Social History Tobacco Use Types Packs/Day [...] Info) Description 01/24/2025 8:30 AM EDT Telemedicine [facility] MEDICINE [address] [place] [phone] Gabriel Rothman MD [address] [place], [place] [phone] 03/03/2025 8:30 AM EDT Telemedicine [facility] MED & PEDS [address] [place] [address] Corey Canseco MD 505 [place] [address] documented as of this encounter Visit Diagnoses Not on filedocumented in this encounter Additional Health Concerns Assessment Noted Time PHQ-9 Depression Total Score: 0 12/01/19 25 9:07 AM EDT documented as of this encounter Care Teams Gm/Svp Global Publisher Business Relationship Specialty Start Date End Date Corey Canseco MD [address] [place] [address] PCP - General Internal Medicine 09/09/19 documented as of this encounter
--- OUTSIDE RECORDS SUMMARY | 2024-12-20 09:27 | XMS_ITS | Clinical Summary ---
Author Organization [employer] Address [address] [place] [address] 7t [place] [address] Care Team Providers Care Hrbp Name Role Phone Corey Canseco MD Primary [...] complication, without long-term current use of insulin ([facility]) Inject 3 mg under the skin 1 [...] complication, without long-term current use of insulin ([facility]) TAKE ONE TABLET EVERY MORNING 90 tablet 1 024 2024 Discontinued gabapentin (Neurontin) 300 MG capsule TAKE ONE CAPSULE THREE TIMES DAILY IN THE MORNING, EVENING AND BEDTIME 90 capsule 1 025 2024 Discontinued(R eorder (will not trigger notification to Pharmacy)) Dulaglutide (Trulicity) 1.5 MG/0.5ML solution auto-injectorIndi cations:Type 2 diabetes mellitus without complication, without long-term current use of insulin ([facility]) Inject 1.5 mg under the skin 1 [...] Mets >4 Blood work done today at [facility] Told to continue oral antyhypertensives the [...] (03/07/2024 2:26 PM EDT): Will refer to central hospital Assessment & Plan (11/30/2023 10:07 PM [...] in treatment. PLAN: 1. Follow up with [facility]: Recommended for follow-up: During AUD appt 2. Patient goal is become sober and reduce anxiety sxs. 3. Behavioral Recommendations a. Continue to use coping mechanisms b. Keeping his medical appts c. Continue to engage with [facility] for extra support. Assessment & Plan (01/23/2023 [...] sobriety goal. PLAN: 1. Follow up with [facility]: Recommended for follow-up: 08/27/24 at [...] up for support, patient declined interest in termite treater helper therapy. At this time Olive Tobias meets criteria for Visit Diagnoses: Problem List Items Addressed This Visit Other Alcohol abuse RUMA (generalized anxiety disorder) Patient ready to address current needs Yes Strengths include willing to continue to be engage with [facility] PLAN: 1. Follow up with [facility]: Recommended for follow-up: 07/02/23 at [...] in treatment. PLAN: 1. Follow up with [facility]: Recommended for follow-up: During AUD [...] Type Department Care Team Description 12/15/2024 Telephone [facility] MED & PEDS [address] [place] [address] Corey Canseco MD Results 12/04/2024 Refill [facility] MED & PEDS [address] [place] [address] Corey Canseco MD 12/02/2024 Orders Only GENERIC EXTERNAL DATA DEPARTMENT Provider, Generic External Data 11/30/2024 9:00 AM EDT Office Visit [facility] MED & PEDS [address] [place] [address] Corey Canseco MD Type 2 diabetes mellitus without complication, without long-term current use of insulin ([facility]) (Primary Dx); Pain; Primary hypertension; Chronic bilateral low back pain with right-sided sciatica 11/29/2024 9:30 AM EDT Office Visit [facility] MEDICINE [address] [place] [phone] Gabriel Rothman MD Alcohol use disorder (Primary Dx) 11/29/2024 Travel 11/19/2024 Refill [facility] MED & PEDS [address] [place] [address] Corey Canseco MD Mixed hyperlipidemia; Type 2 diabetes mellitus without complication, without long-term current use of insulin ([facility]) 11/11/2024 Orders Only [facility] [address] [place] [address] Марина Duffy MD 11/07/2024 Refill [facility] MED & PEDS [address] [place] [address] Corey Canseco MD 11/02/2024 9:00 AM EST Office Visit [facility] ADULT DENTAL [address] [place] [address] Nettie Everett 10/07/2024 8:30 AM EST Telemedicine [facility] MEDICINE [address] [place] [address] Gabriel Rothman MD Alcohol use disorder (Primary Dx) 10/07/2024 Orders Only [facility] MED & PEDS [address] [place] [address] Corey Canseco MD Type 2 diabetes mellitus without complication, without long-term current use of insulin ([facility]) (Primary Dx) 10/07/2024 Travel 09/23/2024 Refill [facility] MED & PEDS [address] [place] [address] Corey Canseco MD from Last 3 Months [...] 01/24/2025 8:30 AM EDT Telemedicine [facility] MEDICINE [address] [place] [address] Gabriel Rothman MD [address] [place] [address] 03/03/2025 8:30 AM EDT Telemedicine [facility] CHC MED & PEDS [address] [place] [address] Corey Canseco MD [address] [place] [address] Health Maintenance Due Date Last Done Comments [...] 11/30/2025 11/30/2024 Depression Screening 11/30/2025 11/30/2024, 12/01/19 25 SDOH Screening 11/30/2025 11/30/2024 Diabetes: Urine Protein [...] EDT Narrative 12/14/2024 11:39 AM EDT ? [facility] ?[address] ?[place] [address] ? Magnetic Resonance Report ? Signed ? Patient: Olive Tobias ?MR#: [id number] ?? 7 ? : 1955 ?Acct:[id number] ? Age/Sex: 69 / M ?ADM Date: 04/02/25 ? Loc: HO.MRI ? Attending Dr: Corey Carcamo MD ? Ordering Physician: Corey Canseco MD ?? Date of Service: 12/14/24 ?? Procedure(s): MR lumbar spine wo con ?? Accession Number(s): [id number] ? cc: Corey Canseco MD ? EXAMINATION: [...] by Bryon Sabillon MD in OV> ? 12/14/241134 ? DD/ 1013 ? TD/TT: 12/14/24 1030 ? Job Change Crew Member: ? Procedure Note Roseann Branch - 12/14/2024 [place] [address] Magnetic Resonance Report Signed Patient: Iona Tobias#: [id number] 7 : 1955cct:[id number] Age/Sex: 69 / MADM Date: 12/14/24 Loc: HO.MRI Attending Dr: Corey Carcamo MD Ordering Physician: Corey Canseco MD Date of Service: 12/14/24 Procedure(s): MR lumbar spine wo con Accession Number(s): [id number] cc: Corey Canseco MD EXAMINATION: MR LUMBAR [...] 12/14/24 1135 DD/ 1013 TD/TT: 12/14/24 1030 Job Change Crew Member: Corey Carcamo MD [facility] MRI PROCEDURES Edited Result - Final * XR PRE MRI SCREENING (12/14/2024 9:10 AM EDT) Anatomical Region Laterality Modality Abdomen Radiographic Kristi ging 12/14/2024 9:10 AM EDT Narrative 12/14/2024 9:33 AM EDT ? [facility] ?[address] ?[place] [address] ?XRay Report ? Signed ? Patient: Olive Tobias ?MR#: [id number] ?? 7 ? : 1955 ?Acct:[id number] ? Age/Sex: 69 / M ?ADM Date: 12/14/24 ? Loc: HO.MRI ? Attending Dr: Corey Carcamo MD ? Ordering Physician: Shaq Douglass MD ?? Date of Service: 12/14/24 ?? Procedure(s): XR pre mri screening ?? Accession Number(s): [id number] ? cc: Corey Canseco MD; Shaq Douglass [...] ??Blaze Brandt MD ??12/14/2024 09:30 AM EDT ?? RP ? Dictated By: ?Blaze Brandt MD ? Signed By: ?<Electronically signed by Blaze Brandt MD in OV> ?12/14/24 0930 ? DD/ 0910 ? TD/TT: 12/14/24 0915 ? Job Change Crew Member: ? Procedure Note Jose Carlos, Image - 12/14/[address] [address] XRay Report Signed Patient: Iona Tobias#: [id number] 7 : 6Acct:[id number] Age/Sex: 69 / MADM Date: 12/14/24 Loc: HO.MRI Attending Dr: Corey Carcamo MD Ordering Physician: Shaq Douglass MD Date of Service: 12/14/24 Procedure(s): XR pre mri screening Accession Number(s): [id number] cc: Corey Canseco MD; Shaq Douglass MD [...] in OV> 12/14/24929 DD/ 9 TD/TT: 12/14/24914 Job Change Crew Member: [facility] External Provider IMG XR PROCEDURES Edited Result - Final * (ABNORMAL) Glucose, Whole Blood (12/02/2024 1:17 PM EDT) Glucose, Whole Blood 120(H) 60 - 115 mg/dL [facility] Comment:METER #: [id number] 12/02/2024 1:17 PM EDT 12/02/2024 1:20 PM EDT Generic External Data Provider LAB BLOOD ORDERAB LES Final Result [facility] [address] [place] [phone] * Albumin, Random Urine W/Creatinine (12/02/2024 10:13 AM EDT) Creatinine, Urine 84.75 mg/dL [facility] Microalbumin Urine 8.0 mg/L [facility] Microalbum Creatinine Ratio Ur 9.4 <30 ug/mg cr [facility] Comment:Albumin/Creatinine R atio Reference Ranges: Normal: < 30 ug/mg creatinine Microalbuminuria: 30 - 300 ug/mg creatinineClinical Albuminuria: > 300 ug/mg creatinine Urine (Urine, Random) 12/02/2024 10:13 AM EDT 12/02/2024 2:08 PM EDT Corey Carcamo MD LAB URINE ORDERABL ES Final Result Performing Organization Address [facility] Co de Phone Number [facility] [address] [place] [phone] * TSH W/Reflex to FT4 (12/02/2024 10:11 AM EDT) Pathologist [facility] TSH reflex Free T4 1.17 0.32 - 4.0 uIU/mL [facility] Blood Venous blood specimen / Unknown 12/02/2024 10:11 AM EDT 12/02/2024 2:05 PM EDT Corey Carcamo MD LAB BLOOD ORDERABL ES Final Result Performing Organization Address [facility] Co de Phone Number [facility] [address] [place] [phone] * (ABNORMAL) CBC auto differential (12/02/2024 10:11 AM EDT) White Blood Count 7.1 4.8 - 10.8 X10*3/uL [facility] Red Blood Count 6.14(H) 4.60 - 5.80 X10*6/uL [facility] Hemoglobin 15.7 14.0 - 18.0 g/dl [facility] Hematocrit 50.0 42.0 - 52.0 % [facility] Mean Corpuscular Volume 81.4 80.0 - 98.0 fL [facility] Mean Corpuscular Hemoglobin 25.6(L) 27.0 - 33.0 pg [facility] Mean Corpuscular HGB Conc 31.4 31.0 - 36.0 g/dl [facility] Red Cell Distribution Width 17.4(H) 11.0 - 16.0 % [facility] Platelet Count 177 160 - 400 X10*3/uL [facility] Mean Platelet Volume 9.9 9.4 - 12.4 fL [facility] Neutrophils Percent Auto 72.2 45 - 73 % [facility] Imm Gran Pct Auto 0.6(H) 0.0 - 0.4 % [facility] Lymphocytes Percent Auto 14.1(L) 20 - 40 % [facility] Monocytes Percent Auto 10.3 2 - 11 % [facility] Eosinophils Percent Auto 2.4 0 - 4 % [facility] Basophils Percent Auto 0.4 0 - 2 % [facility] NRBC Pct Auto 0.0 0.0 - 0.2 /100WBC [facility] Neutrophils Absolute Auto 5.1 2.0 - 8.3 x10*3/uL [facility] Imm Gran Abs Auto 0.04(H) 0.00 - 0.03 X10*3/uL [facility] Lymphocytes Absolute Auto 1.0(L) 1.2 - 4.9 X10*3/uL [facility] Monocytes Absolute Auto 0.7 0.1 - 1.2 X10*3/uL [facility] Eosinophils Absolute Auto 0.2 0.0 - 0.4 X10*3/uL [facility] Basophils Absolute Auto 0.0 0.0 - 0.2 X10*3/uL [facility] NRBC Abs Auto 0.000 0.0 - 0.012 X10*3/uL [facility] Blood Venous blood specimen / Unknown 12/02/2024 10:11 AM EDT 12/02/2024 2:05 PM EDT us Corey Carcamo MD LAB BLOOD ORDERABL ES Final Result [facility] [address] [place], [place] [phone] * (ABNORMAL) Lipid Panel, Standard (12/02/2024 10:11 AM EDT) Triglycerides 114 <150 mg/dL [facility] Comment:Desirable Triglyceri de: less than 150 mg/dLBorderline High Triglyceride 150-199 mg/dLHigh Triglyceride: 200-499 mg/dLVery High Triglyceride: greater than or equal to 5OO mg/dL Cholesterol 119 <200 mg/dL [facility] Comment:Desirable Cholestero l: less than 200 mg/dLBorderline High Cholesterol: 200-239 mg/dLHigh Cholesterol: greater than 239 mg/dL LDL Cholesterol Calculated 69 <100 mg/dL [facility] Comment:Desirable LDL: less than 100 mg/dLNear Optimal/Above Optimal LDL: 110- 129 mg/dLBorderline High LDL: 130-159 mg/dLHigh LDL: 160-189 mg/dLVery High LDL: greater than or equal to 190 mg/dL HDL Cholesterol 28(L) >40 mg/dL [facility] Comment:Desirable HDL: grea ter than 40 mg/dL Note: This HDL assay may give artificially low results in patients with liver disease. Blood Venous blood specimen / Unknown 12/02/2024 10:11 AM EDT 12/02/2024 2:05 PM EDT us Corey Carcamo MD LAB BLOOD ORDERABL ES Final Result [facility] [address] [place] [phone] * (ABNORMAL) Comprehensive Metabolic Panel (12/02/2024 10:11 AM EDT) Sodium 139 135 - 145 mmol/L [facility] Potassium 4.5 3.3 - 5.1 mmol/L [facility] Chloride 108 96 - 108 mmol/L [facility] Carbon Dioxide 23 22 - 29 mmol/L [facility] Anion Gap 13 12 - 20 [facility] Urea Nitrogen (BUN) 16 9 - 16 mg/dL [facility] Creatinine, Serum 0.80 0.5 - 1.4 mg/dL [facility] Estimated Glomerular Filt Rate >60 [facility] Comment:Chronic Kidney Disea se: Estimated GFR < 60 mL/min/[id number] Kidney Disease: Estimated GFR < 15 mL/min/1.73m2 Glucose 114 60 - 115 mg/dL [facility] Calcium 9.1 8.4 - 10.2 mg/dL [facility] Bilirubin, Total 0.8 0.0 - 1.0 mg/dL [facility] Aspartate Amino Transferase 21 5 - 37 U/L [facility] Alanine Aminotransferase 20 0 - 40 U/L [facility] Total Protein 8.2(H) 6.5 - 8.0 g/dL [facility] Albumin Level 4.1 3.5 - 5.0 g/dL [facility] Alkaline Phosphatase 90 39 - 117 U/L [facility] Blood Venous blood specimen / Unknown 12/02/2024 10:11 AM EDT 12/02/2024 2:05 PM EDT us Corey Carcamo MD LAB BLOOD ORDERABL ES Final Result [facility] [address] [place] [phone] * (ABNORMAL) POCT Glucose (11/30/2024 9:30 AM EDT) Pathologist [facility] Glucose Blood, POC 274(A) 60 - 200 mg/dL QC Media Lot # [id number] Lot# Expiration Date Blood Capillary blood specimen / Unknown 11/30/2024 9:30 AM EDT Corey Carcamo MD POINT OF CARE TEST ENTER/EDIT ORDERABLES Final Result * (ABNORMAL) POCT HGB A1C (11/30/2024 9:19 AM EDT) Hemoglobin A1C 7.3(A) 4.0 - 6.0 % QC Media Lot # [id number] Lot# Expiration Date [id number] Blood 11/30/2024 9:19 AM EDT Result [facility] Corey Carcamo MD POINT OF CARE TEST ENTER/EDIT ORDERABLES Final Result * Diabetes Eye Exam (11/10/2024 9:37 AM EST) Result [facility] Historical Provider HEALTH MAINTENANCE Final Result * Colonoscopy (04/10/2023 12:03 PM EDT) Historical Provider HEALTH MAINTENANCE Final Result * Hepatitis C Antibody with Reflex to HCV, RNA, Quantitative, Real-Time PCR (09/24/2022 10:33 AM EST) Hepatitis C Antibody NON-REACT MARK NON-REACT MARK [employer] Index <0.02 <1.00 [employer] Comment: HCV antibody was non-reactive. There is no laboratory evidence of HCV infection. In most cases, no further action is required. However, if recent HCV exposure is suspected, a test for HCV RNA (test code 29841) is suggested. For additional information please refer to http://education.Devshop/faq/XFZ27g7 (This link is being provided for informational/ educational purposes only.) 09/24/2022 10:3 3 AM EST 09/24/2022 10:33 AM EST Narrative [facility] - 09/24/2022 9:25 PM EST FASTING:NO FASTING: NO Result [facility] Corey Carcamo MD LAB BLOOD ORDERABL ES Final Result [facility] [address], [place] [address] [employer] [address] [facility], ([address]) [place] [address] from Last 3 Months or Most Recently Relevant to Health Maintenance Insurance [facility] MEDICARE REPLACEMENT DENTAL - [facility] Care Teams Hrbp Relationship Specialty Start Date End Date Corey Canseco MD [address] [place] [address] PCP - General Internal Medicine 09/09/19
== END 2024-12-20 09:56 | disposition home or self-care (01) ==
LOC: HO.HNS 08:52
PROVIDERS: PCP Internal Medicine; Referring Provider Nurse Practitioner Family; Visit Provider Physician Assistant
DX: M54.9 Dorsalgia, unspecified (principal); M71.38 Other bursal cyst, other site
CPT/HCPCS: 99204

== ENCOUNTER 2024-12-20 08:52 | Outpatient (REF) | payer MEDICARE, SELFPAY ==
--- NOTE | ~2024-12-20 | XR_ITS ---
CLINICAL HISTORY: M54.9 - Dorsalgia, unspecified 4 views lumbar spine Comparison: MRI of the lumbar spine from 12/14/2024 Findings: No significant change in vertebral heights with flexion or extension. Grade 2 anterolisthesis at L4-L5. More pronounced with weight-bearing, relative to supine imaging from 6 days prior. Mild vertebral height losses again noted. No x-ray correlate for marked facet cysts at L4-L5. Again, facet arthropathy is multifocal. Vascular calcifications noted. Sacrum, SI joints, and hips are essentially obscured. IMPRESSION: 1. Grade 2 anterolisthesis at L4-L5. 2. Multifocal facet arthropathy. This document has been electronically signed by: Aleksandr Henao MD on 12/21/2024 01:12:19
--- OUTSIDE RECORDS SUMMARY | 2024-12-20 11:19 | XMS_ITS | Encounter Summary ---
Author Organization [employer] Address [address] [facility] 7 [place] [address] Care Team Providers Care Equipment Hire Manager Name Role Phone Corey Canseco MD Primary Care Prov ider Encounter Details Date Type Department Care Team (Late st Contact Info) Description 06/01/2024 Orders Only [facility] CHC MED & PEDS [address] [place] [address] Corey Canseco MD [address] [place] [address] Social History Tobacco Use Types Packs/Day Years [...] Description 01/24/2025 8:30 AM EDT Telemedicine [facility] MEDICINE [address] [place] [address] Gabriel Rothman MD [address] [place] [address] 03/03/2025 8:30 AM EDT Telemedicine [facility] CHC MED & PEDS [address] [place] [address] Corey Canseco MD [address] [place] [address] documented as of this encounter Visit Diagnoses Not on filedocumented in this encounter Additional Health Concerns Assessment Noted Time PHQ-9 Depression Total Score: 9 05/19/20 24 9:41 AM EDT documented as of this encounter Care Teams Equipment Hire Manager Relationship Specialty Start Date End Date Corey Canseco MD [address] [place] [address] PCP - General Internal Medicine 09/09/19 documented as of this encounter
--- OUTSIDE RECORDS SUMMARY | 2024-12-20 11:19 | XMS_ITS | Encounter Summary ---
Author Organization [employer] Address [address] [place] [address] Care Team Providers Care Hem Inspector Name Role Phone Corey Canseco MD Primary Care Prov ider Encounter Details Date Type Department Care Team (Latest Contact Info) Description 09/28/2020 Abstract [facility] CONVERSIONS Dental, Provider, DDS Social History [...] Info) Description 01/24/2025 8:30 AM EDT Telemedicine [facility] MEDICINE [address] [place] [address] Gabriel Rothman MD [address] [place] [address] 03/03/2025 8:30 AM EDT Telemedicine [facility] CHC MED & PEDS [address] [place] [address] Corey Canseco MD [address] [place], [place] documented as of this encounter Visit Diagnoses Not on filedocumented in this encounter Care Teams Hem Inspector Relationship Specialty Start Date End Date ChambersCorey Grace MD [address] [place] [phone] PCP - General Internal Medicine 09/09/19 documented as of this encounter
--- OUTSIDE RECORDS SUMMARY | 2024-12-20 11:19 | XMS_ITS | Encounter Summary ---
Author Organization [employer] Address [address] [place] [address] 7 [place] [address] Care Team Providers Care Auto Bench Mechanic Name Role Phone Corey Canseco MD Primary Care Prov ider Reason for Visit * Reason Comments Med Refill Encounter Details Date Type Department Care Team ([facility] Contact Info) Description 07/04/2024 Refill [facility]C MED & PEDS [address] [place] [address] Corey Canseco MD [address] [place] [address] Social History Tobacco Use Types Packs/Day Years [...] Info) Description 01/24/2025 8:30 AM EDT Telemedicine [facility] MEDICINE [address] [place] [address] Gabriel Rothman MD [address] [place] [address] 03/03/2025 8:30 AM EDT Telemedicine [facility] CHC MED & PEDS [address] [place], [place] [phone] Corey Canseco MD [address] [place] [address] documented as of this encounter Visit Diagnoses Not on filedocumented in this encounter Additional Health Concerns Assessment Noted Time PHQ-9 Depression Total Score: 9 05/19/20 24 9:41 AM EDT documented as of this encounter Care Teams Auto Bench Mechanic Relationship Specialty Start Date End Date Corey Canseco MD [address] [place] [phone] PCP - General Internal Medicine 09/09/19 documented as of this encounter
--- OUTSIDE RECORDS SUMMARY | 2024-12-20 11:20 | XMS_ITS | Encounter Summary ---
Author Organization [employer] Address [address] [place] [address] 7 [place] [address] Care Team Providers Care Examination Supervisor Name Role Phone Corey Canseco MD Primary Care Prov ider Reason for Visit * Reason Onset Date Comments Results 12/15/2024 Encounter Details Date Type Department Care Team ([facility] Contact Info) Description 12/15/2024 Telephone [facility]C MED & PEDS [address] [place] [address] Corey Canseco MD [address] [place] [address] Results Social History Tobacco Use Types Packs/Day [...] Info) Description 01/24/2025 8:30 AM EDT Telemedicine [facility] MEDICINE [address] [place] [phone] Gabriel Rothman MD [address] [place], [place] [phone] 03/03/2025 8:30 AM EDT Telemedicine [facility] MED & PEDS [address] [place] [address] Corey Canseco MD [address] [place] [address] documented as of this encounter Visit Diagnoses Not on filedocumented in this encounter Additional Health Concerns Assessment Noted Time PHQ-9 Depression Total Score: 0 12/01/19 25 9:07 AM EDT documented as of this encounter Care Teams Examination Supervisor Relationship Specialty Start Date End Date Corey Canseco MD [address] [place] [address] PCP - General Internal Medicine 09/09/19 documented as of this encounter
--- OUTSIDE RECORDS SUMMARY | 2024-12-20 11:20 | XMS_ITS | Encounter Summary ---
Author Organization [employer] Address [address] [place] [address] 7t [place] [address] Care Team Providers Care Slider Assembler Name Role Phone Corey Canseco MD Primary Care Prov ider Encounter Details Date Type Department Care Team (Late st Contact Info) Description 11/11/2024 Orders Only [facility] [address] [place] [address] Provider, MD Марина Social History Tobacco Use [...] AM EDT Telemedicine [facility] [address] [place] [address] Gabriel Rothman MD [address] [place] [address] 03/03/2025 8:30 AM EDT Telemedicine [facility] MED & PEDS [address] [place] [address] Corey Canseco MD [address] [place] [address] documented as of this encounter Procedures Procedure [...] documented as of this encounter Care Teams Slider Assembler Relationship Specialty Start Date End Date Corey Canseco MD [address] [place] [phone] PCP - General Internal Medicine 09/09/19 documented as of this encounter
--- OUTSIDE RECORDS SUMMARY | 2024-12-20 11:20 | XMS_ITS | Encounter Summary ---
Author Organization [employer] Address [address] [place] [address] 7 [place] [address] Care Team Providers Care Shipping And Receiving Coordinator Name Role Phone Corey Canseco MD Primary Care Prov ider Reason for Visit * Reason Comments Med Refill Encounter Details Date Type Department Care Team (Late Contact Info) Description 04/05/2023 Refill [facility] [address] [place] [address] Corey Canseco MD [address] [place] [address] Mixed hyperlipidemia Social History Tobacco Use Types [...] Upcoming Encounters Date Type Department Care Team ([facility] Contact Info) Description 01/24/2025 8:30 AM EDT Telemedicine [facility]INE [address] [place], [place] [phone] Gabriel Rothman MD 230 [place] [address] 03/03/2025 8:30 AM EDT Telemedicine [facility] [address] [place], [place] [phone] Corey Canseco MD [address] [place], [place] [phone] documented as of this encounter Visit Diagnoses Diagnosis Mixed hyperlipidemia documented in this encounter Additional Health Concerns Assessment Noted Time PHQ-9 Depression Total Score: 0 12/20/19 23 9:39 AM EDT documented as of this encounter Care Teams Shipping And Receiving Coordinator Relationship Specialty Start Date End Date Corey Canseco MD [address] [place] [address] PCP - General Internal Medicine 09/09/19 documented as of this encounter
--- OUTSIDE RECORDS SUMMARY | 2024-12-20 11:20 | XMS_ITS | Encounter Summary ---
Author Organization [employer] Address [address] [place] [address] Care Team Providers Care Piece Work Checker Name Role Phone Corey Canseco MD Primary Care Prov ider Encounter Details Date Type Department Care Team (Latest Contact Info) Description 09/26/2019 Abstract [facility] CONVERSIONS Dental, Provider, DDS Social History [...] Info) Description 01/24/2025 8:30 AM EDT Telemedicine [facility] MEDICINE [address] [place] [address] Gabriel Rothman MD [address] [place] [address] 03/03/2025 8:30 AM EDT Telemedicine [facility]EDS [address] [place] [address] Corey Canseco MD [address] [place], [place] documented as of this encounter Visit Diagnoses Not on filedocumented in this encounter Care Teams Piece Work Checker Relationship Specialty Start Date End Date ChambersCorey Grace MD [address] [place] [address] PCP - General Internal Medicine 09/09/19 documented as of this encounter
--- OUTSIDE RECORDS SUMMARY | 2024-12-20 11:20 | XMS_ITS | Clinical Summary ---
Author Organization [employer] Address [address] [place] [address] 7t [place] [address] Care Team Providers Care Tank Car Inspector Name Role Phone Corey Canseco MD [...] current use of insulin ([facility]) Inject 3 mg under the skin 1 [...] current use of insulin ([facility]) TAKE ONE TABLET EVERY MORNING 90 tablet 1 024 2024 Discontinued gabapentin (Neurontin) 300 MG capsule TAKE ONE CAPSULE THREE TIMES DAILY IN THE MORNING, EVENING AND BEDTIME 90 capsule 1 025 2024 Discontinued(R eorder (will not trigger notification to Pharmacy)) Dulaglutide (Trulicity) 1.5 MG/0.5ML solution auto-injectorIndi cations:Type 2 diabetes mellitus without complication, without long-term current use of insulin ([facility]) Inject 1.5 mg under the skin [...] Mets >4 Blood work done [facility] Told to continue oral antyhypertensives the [...] (03/07/2024 2:26 PM EDT): Will refer to [facility] Assessment & Plan (11/30/2023 10:07 PM EDT): [...] in treatment. PLAN: 1. Follow up with [facility]: Recommended for follow-up: During AUD appt 2. Patient goal is become sober and reduce anxiety sxs. 3. Behavioral Recommendations a. Continue to use coping mechanisms b. Keeping his medical appts c. Continue to engage with [facility] for extra support. Assessment & [...] sobriety goal. PLAN: 1. Follow up with [facility]: Recommended for follow-up: 08/27/24 at 9am 2. [...] up for support, patient declined interest in bed bug exterminator therapy. At this time Olive Tobias meets criteria for Visit Diagnoses: Problem List Items Addressed This Visit Other Alcohol abuse RUMA (generalized anxiety disorder) Patient ready to address current needs Yes Strengths include willing to continue to be engage with [facility] PLAN: 1. Follow up with [facility]: Recommended for follow-up: 07/02/23 at 9:30 am [...] in treatment. PLAN: 1. Follow up with [facility]: Recommended for follow-up: During AUD appt 2. [...] Type Department Care Team Description 12/15/2024 Telephone [facility] MED & PEDS [address] [place] [address] Corey Canseco MD Results 12/04/2024 Refill [facility] [address] [place] [address] Corey Canseco MD 12/02/2024 Orders Only GENERIC EXTERNAL DATA DEPARTMENT Provider, Generic External Data 11/30/2024 9:00 AM EDT Office Visit [facility] [address] [place] [address] Corey Canseco MD Type 2 diabetes mellitus without complication, without long-term current use of insulin ([facility]) (Primary Dx); Pain; Primary hypertension; Chronic bilateral low back pain with right-sided sciatica 11/29/2024 9:30 AM EDT Office Visit [facility] [address] [place] [address] Gabriel Rothman MD Alcohol use disorder (Primary Dx) 11/29/2024 Travel 11/19/2024 Refill [facility] [address] [place] [address] Corey Canseco MD Mixed hyperlipidemia; Type 2 diabetes mellitus without complication, without long-term current use of insulin ([facility]) 11/11/2024 Orders Only [facility] [place] [facility] [address] [place] [address] Марина Duffy MD 11/07/2024 Refill [facility] [address] [place] [address] Corey Canseco MD 11/02/2024 9:00 AM EST Office Visit [facility] [address] [place] [address] Nettie Everett 10/07/2024 8:30 AM EST Telemedicine [facility] [address] [place] [address] Gabriel Rothman MD Alcohol use disorder (Primary Dx) 10/07/2024 Orders Only [facility] [address] [place] [address] Corey Canseco MD Type 2 diabetes mellitus without complication, without long-term current use of insulin ([facility]) (Primary Dx) 10/07/2024 Travel 09/23/2024 Refill [facility] [address] [place] [address] Corey Canseco MD from Last 3 Months [...] Info) Description 01/24/2025 8:30 AM EDT Telemedicine [facility] [address] [place] [address] Gabriel Rothman MD [address] [place] [address] 03/03/2025 8:30 AM EDT Telemedicine [facility] [address] [place] [address] Corey Canseco MD [address] [place] [address] Health Maintenance Due Date Last Done Comments [...] EDT Narrative 12/14/2024 11:39 AM EDT ? [facility] ?[address] ?[place] [address] ? Magnetic Resonance Report ? Signed ? Patient: Olive Tobias ?MR#: [id number] ?? 7 ? : 1955 ?Acct:[id number] ? Age/Sex: 69 / M ?ADM Date: 04/02/25 ? Loc: HO.MRI ? Attending Dr: Corey Carcamo MD ? Ordering Physician: Corey Canseco MD ?? Date of Service: 12/14/24 ?? Procedure(s): MR lumbar spine wo con ?? Accession Number(s): [id number] ? cc: Corey Canseco MD ? EXAMINATION: [...] DD/ 1013 ? TD/TT: 12/14/24 1030 ? Trolley Worker: ? Procedure Note Roseann Branch - 12/14/2024 [place] [address] Magnetic Resonance Report Signed Patient: Iona Tobias#: [id number] 7 : 1955cct:[id number] Age/Sex: 69 / MADM Date: 12/14/24 Loc: HO.MRI Attending Dr: Corey Carcamo MD Ordering Physician: Corey Canseco MD Date of Service: 12/14/24 Procedure(s): MR lumbar spine wo con Accession Number(s): [id number] cc: Corey Canseco MD EXAMINATION: MR LUMBAR [...] 12/14/24 1135 DD/ 1013 TD/TT: 12/14/24 1030 Trolley Worker: Corey Carcamo MD [facility] MRI PROCEDURES Edited Result - Final * XR PRE MRI SCREENING (12/14/2024 9:10 AM EDT) Anatomical Region Laterality Modality Abdomen Radiographic Kristi ging 12/14/2024 9:10 AM EDT Narrative 12/14/2024 9:33 AM EDT ? [facility] ?[address] ?[place] [address] ?XRay Report ? Signed ? Patient: Olive Tobias ?MR#: [id number] ?? 7 ? : 1955 ?Acct:[id number] ? Age/Sex: 69 / M ?ADM Date: 12/14/24 ? Loc: HO.MRI ? Attending Dr: Corey Carcamo MD ? Ordering Physician: Shaq Douglass MD ?? Date of Service: 12/14/24 ?? Procedure(s): XR pre mri screening ?? Accession Number(s): [id number] ? cc: Corey Canseco MD; Shaq Douglass [...] DD/ 0910 ? TD/TT: 12/14/24 0915 ? Trolley Worker: ? Procedure Note Jose Carlos, Image - 12/14/[address] [address] XRay Report Signed Patient: Iona Tobias#: [id number] 7 : 6Acct:[id number] Age/Sex: 69 / MADM Date: 12/14/24 Loc: HO.MRI Attending Dr: Corey Carcamo MD Ordering Physician: Shaq Douglass MD Date of Service: 12/14/24 Procedure(s): XR pre mri screening Accession Number(s): [id number] cc: Corey Canseco MD; Shaq Douglass MD [...] in OV> 12/14/[address] DD/ 9 TD/TT: 12/14/[address]14 Trolley Worker: [facility] External Provider IMG XR PROCEDURES Edited Result - Final * (ABNORMAL) Glucose, Whole Blood (12/02/2024 1:17 PM EDT) Glucose, Whole Blood 120(H) 60 - 115 mg/dL [facility] Comment:METER #: [id number] 12/02/2024 1:17 PM EDT 12/02/2024 1:20 PM EDT Generic External Data Provider LAB BLOOD ORDERAB LES Final Result [facility] [address] [place] [phone] * Albumin, Random Urine W/Creatinine (12/02/2024 10:13 AM EDT) Creatinine, Urine 84.75 mg/dL [facility] Microalbumin Urine 8.0 mg/L [facility] Microalbum Creatinine Ratio Ur 9.4 <30 ug/mg cr [facility] Comment:Albumin/Creatinine R atio Reference Ranges: Normal: < 30 ug/mg creatinine Microalbuminuria: 30 - 300 ug/mg creatinineClinical Albuminuria: > 300 ug/mg creatinine Urine (Urine, Random) 12/02/2024 10:13 AM EDT 12/02/2024 2:08 PM EDT Corey Carcamo MD LAB URINE ORDERABL ES Final Result Performing Organization Address [facility] Co de Phone Number [facility] [address] [place] [phone] * TSH W/Reflex to FT4 (12/02/2024 10:11 AM EDT) Pathologist [facility] TSH reflex Free T4 1.17 0.32 - 4.0 uIU/mL [facility] Blood Venous blood specimen / Unknown 12/02/2024 10:11 AM EDT 12/02/2024 2:05 PM EDT Corey Carcamo MD LAB BLOOD ORDERABL ES Final Result Performing Organization Address [facility] Co de Phone Number [facility] [address] [place] [phone] * (ABNORMAL) CBC auto differential (12/02/2024 10:11 AM EDT) White Blood Count 7.1 4.8 - 10.8 X10*3/uL [facility] Red Blood Count 6.14(H) 4.60 - 5.80 X10*6/uL [facility] Hemoglobin 15.7 14.0 - 18.0 g/dl [facility] Hematocrit 50.0 42.0 - 52.0 % [facility] Mean Corpuscular Volume 81.4 80.0 - 98.0 fL [facility] Mean Corpuscular Hemoglobin 25.6(L) 27.0 - 33.0 pg [facility] Mean Corpuscular HGB Conc 31.4 31.0 - 36.0 g/dl [facility] Red Cell Distribution Width 17.4(H) 11.0 - 16.0 % [facility] Platelet Count 177 160 - 400 X10*3/uL [facility] Mean Platelet Volume 9.9 9.4 - 12.4 fL [facility] Neutrophils Percent Auto 72.2 45 - 73 % [facility] Imm Gran Pct Auto 0.6(H) 0.0 - 0.4 % [facility] Lymphocytes Percent Auto 14.1(L) 20 - 40 % [facility] Monocytes Percent Auto 10.3 2 - 11 % [facility] Eosinophils Percent Auto 2.4 0 - 4 % [facility] Basophils Percent Auto 0.4 0 - 2 % [facility] NRBC Pct Auto 0.0 0.0 - 0.2 /100WBC [facility] Neutrophils Absolute Auto 5.1 2.0 - 8.3 x10*3/uL [facility] Imm Gran Abs Auto 0.04(H) 0.00 - 0.03 X10*3/uL [facility] Lymphocytes Absolute Auto 1.0(L) 1.2 - 4.9 X10*3/uL [facility] Monocytes Absolute Auto 0.7 0.1 - 1.2 X10*3/uL [facility] Eosinophils Absolute Auto 0.2 0.0 - 0.4 X10*3/uL [facility] Basophils Absolute Auto 0.0 0.0 - 0.2 X10*3/uL [facility] NRBC Abs Auto 0.000 0.0 - 0.012 X10*3/uL [facility] Blood Venous blood specimen / Unknown 12/02/2024 10:11 AM EDT 12/02/2024 2:05 PM EDT us Corey Carcamo MD LAB BLOOD ORDERABL ES Final Result [facility] [address] [place], [place] [phone] * (ABNORMAL) Lipid Panel, Standard (12/02/2024 10:11 AM EDT) Triglycerides 114 <150 mg/dL [facility] Comment:Desirable Triglyceri de: less than 150 mg/dLBorderline High Triglyceride 150-199 mg/dLHigh Triglyceride: 200-499 mg/dLVery High Triglyceride: greater than or equal to 5OO mg/dL Cholesterol 119 <200 mg/dL [facility] Comment:Desirable Cholestero l: less than 200 mg/dLBorderline High Cholesterol: 200-239 mg/dLHigh Cholesterol: greater than 239 mg/dL LDL Cholesterol Calculated 69 <100 mg/dL [facility] Comment:Desirable LDL: less than 100 mg/dLNear Optimal/Above Optimal LDL: 110- 129 mg/dLBorderline High LDL: 130-159 mg/dLHigh LDL: 160-189 mg/dLVery High LDL: greater than or equal to 190 mg/dL HDL Cholesterol 28(L) >40 mg/dL [facility] Comment:Desirable HDL: great er than 40 mg/dL Note: This HDL assay may give artificially low results in patients with liver disease. Blood Venous blood specimen / Unknown 12/02/2024 10:11 AM EDT 12/02/2024 2:05 PM EDT us Corey Carcamo MD LAB BLOOD ORDERABL ES Final Result [facility] [address] [place] [phone] * (ABNORMAL) Comprehensive Metabolic Panel (12/02/2024 10:11 AM EDT) Sodium 139 135 - 145 mmol/L [facility] Potassium 4.5 3.3 - 5.1 mmol/L [facility] Chloride 108 96 - 108 mmol/L [facility] Carbon Dioxide 23 22 - 29 mmol/L [facility] Anion Gap 13 12 - 20 [facility] Urea Nitrogen (BUN) 16 9 - 16 mg/dL [facility] Creatinine, Serum 0.80 0.5 - 1.4 mg/dL [facility] Estimated Glomerular Filt Rate >60 [facility] Comment:Chronic Kidney Disea se: Estimated GFR < 60 mL/min/1.02d8Eceqxi Kidney Disease: Estimated GFR < 15 mL/min/1.73m2 Glucose 114 60 - 115 mg/dL [facility] Calcium 9.1 8.4 - 10.2 mg/dL [facility] Bilirubin, Total 0.8 0.0 - 1.0 mg/dL [facility] Aspartate Amino Transferase 21 5 - 37 U/L [facility] Alanine Aminotransferase 20 0 - 40 U/L [facility] Total Protein 8.2(H) 6.5 - 8.0 g/dL [facility] Albumin Level 4.1 3.5 - 5.0 g/dL [facility] Alkaline Phosphatase 90 39 - 117 U/L [facility] Blood Venous blood specimen / Unknown 12/02/2024 10:11 AM EDT 12/02/2024 2:05 PM EDT us Corey Carcamo MD LAB BLOOD ORDERABL ES Final Result Performing Organization Address City/State/[facility] Co de Phone Number [facility] [address] [place] [phone] * (ABNORMAL) POCT Glucose (11/30/2024 9:30 [...] Media Lot # [id number] Lot# Expiration Date ,088 Blood 11/30/2024 9:19 AM EDT Result [facility] Corey Carcamo MD POINT OF CARE TEST ENTER/EDIT ORDERABLES Final Result * Diabetes Eye Exam (11/10/2024 9:37 AM EST) Result [facility] Historical Provider HEALTH MAINTENANCE Final Result * Colonoscopy (04/10/2023 12:03 PM EDT) Historical Provider HEALTH MAINTENANCE Final Result * Hepatitis C Antibody with Reflex to HCV, RNA, Quantitative, Real-Time PCR (09/24/2022 10:33 AM EST) Hepatitis C Antibody NON-REACT MARK NON-REACT MARK [facility] Index <0.02 <1.00 [facility] Comment: HCV antibody was non-reactive. There is no laboratory evidence of HCV infection. In most cases, no further action is required. However, if recent HCV exposure is suspected, a test for HCV RNA (test code 36693) is suggested. For additional information please refer to http://education.[employer]/faq/HOI71t6 (This link is being provided for informational/ educational purposes only.) 09/24/2022 10:3 3 AM EST 09/24/2022 10:33 AM EST Narrative [facility] - 09/24/2022 9:25 PM EST FASTING:NO FASTING: NO Result [facility] Corey Carcamo MD LAB BLOOD ORDERABL ES Final Result [facility] [address], [place] [phone] [facility] [address] [facility], ([address]) [place] [phone] from Last 3 Months or Most Recently Relevant to Health Maintenance Insurance [facility] MEDICARE REPLACEMENT [place], [place] DENTAL - [facility] Care Teams Tank Car Inspector Relationship Specialty Start Date End Date Corey Canseco MD [address] [place] [address] PCP - General Internal Medicine 09/09/19
--- OUTSIDE RECORDS SUMMARY | 2024-12-20 11:20 | XMS_ITS | Encounter Summary ---
Author Organization [employer] Address [address] [place] [address] [facility] [place] [address] Care Team Providers Care Felt Finisher Name Role Phone Corey Canseco MD Primary Care Prov ider Reason for Visit * Reason Comments Med Refill Encounter Details Date Type Department Care Team (Late Contact Info) Description 03/20/2023 Refill [facility]S [address] [place] [address] Corey Canseco MD [address] [place] [address] Social History Tobacco Use Types Packs/Day Years [...] Upcoming Encounters Date Type Department Care Team ([facility] Contact Info) Description 01/24/2025 8:30 AM EDT Telemedicine [facility] MEDICINE [address] [place], [place] [phone] Gabriel Rothman MD [address] [place] [address] 03/03/2025 8:30 AM EDT Telemedicine [facility] [address] [place], [place] [phone] Corey Canseco MD [address] [place], [place] [phone] documented as of this encounter Visit Diagnoses Not on filedocumented in this encounter Additional Health Concerns Assessment Noted Time PHQ-9 Depression Total Score: 0 12/20/19 23 9:39 AM EDT documented as of this encounter Care Teams Felt Finisher Relationship Specialty Start Date End Date Corey Canseco MD [address] [place], [place] [phone] PCP - General Internal Medicine 09/09/19 documented as of this encounter
--- OUTSIDE RECORDS SUMMARY | 2024-12-20 11:20 | XMS_ITS | Encounter Summary ---
Author Organization [employer] Address [address] [place] [address] Care Team Providers Care Line Builder Name Role Phone Corey Canseco MD Primary Care Prov ider Reason for Referral * Imaging (Routine) - Closed Specialty Diagnoses / Procedures Referred By Contac t Referred To Contact Radiology Diagnoses Chronic left shoulder pain Procedures MR Shoulder w/o Contrast Left Corey Canseco MD [address] [place] [address] Phone: tel: fax: [address] Phone: tel: fax: Referral ID Status Reason Start Date Expiration Date Visits Re quested Visits Authorized [id number] Closed 12/02/2023 12/01/2024 1 1 Encounter Details Date Type Department Care Team (Late st Contact Info) Description 12/02/[address] [facility] PEDS [address] [place] [address] Corey Canseco MD [address] [place] [address] Chronic left shoulder pain (Primary Dx) Social [...] Info) Description 01/24/2025 8:[address] [facility] [address] [place] [address] Gabriel Rothman MD [address] [place] [address] 03/03/2025 8:[address] [facility] [address] [place] [address] Corey Canseco MD [address] [place] [address] Scheduled Orders Name Type Priority Associated Diagnoses [...] documented as of this encounter Care Teams Line Builder Relationship Specialty Start Date End Date Corey Canseco MD [address] [place] [address] PCP - General Internal Medicine 09/09/19 documented as of this encounter
--- OUTSIDE RECORDS SUMMARY | 2024-12-20 11:20 | XMS_ITS | Encounter Summary ---
Author Organization [employer] Address [address] [place] [address] Care Team Providers Care Electroplating Worker Name Role Phone Corey Canseco MD Primary Care Prov ider Encounter Details Date Type Department Care Team (Late st Contact Info) Description 12/25/2023 Orders Only [facility] MEDICINE [address] [place] [address] ProviderМарина MD Social History Tobacco Use Types [...] Info) Description 01/24/2025 8:30 AM EDT Telemedicine [facility] MEDICINE [address] [place] [address] Gabriel Rothman MD [address] [place] [address] 03/03/2025 8:30 AM EDT Telemedicine [facility] MED [facility] PEDS [address] [place] [address] Corey Canseco MD [address] [place], [place] [phone] documented as of this encounter Procedures Procedure [...] EDT Narrative 01/14/2024 4:15 PM EDT ? [facility] ?[address] ?[place] [address] ? CT Scan Report ? Signed ? Patient: Olive Tobias ?MR#: [id number] ?? 7 ? : 1955 ?Acct:[id number] ? Age/Sex: 68 / M ?ADM Date: 01/14/24 ? Loc: HO.CT ? Attending Dr: Jon Meza MD ? Ordering Physician: Jon Meza MD ?? Date of Service: 01/14/24 ?? Procedure(s): CT shoulder LT wo IV con ?? Accession Number(s): [id number] ? cc: Corey Canseco MD; Jon Meza [...] 1612 ? DD/ 0815 ? TD/TT: ? Tire Regrooving Machine Operator: RK ? Procedure Note Jose Carlos, Roseann - 01/14/[address] [place] [address] [address] Scan Report Signed Patient: Iona Tobias#: [id number] 7 : 6Acct:[id number] Age/Sex: 68 / MADM Date: 01/14/24 Loc: HO.CT Attending Dr: Jon Meza MD Ordering Physician: Jon Meza MD Date of Service: 01/14/24 Procedure(s): CT shoulder LT wo IV con Accession Number(s): [id number] cc: Corey Canseco MD; Jon Meza MD [...] in OV> 01/14/24 1612 DD/ 0815 TD/TT: Tire Regrooving Machine Operator: NEREYDA [facility] External Provider IMG CT PROCEDURES Final Result * Hm Colonoscopy (04/10/2023 12:03 PM EDT) Historical Provider HEALTH MAINTENANCE Final Result documented in this encounter Visit Diagnoses Not on filedocumented in this encounter Additional Health Concerns Assessment Noted Time PHQ-9 Depression Total Score: 6 12/24/19 24 9:28 AM EDT documented as of this encounter Care Teams Electroplating Worker Relationship Specialty Start Date End Date Corey Canseco MD [address] [place] [phone] PCP - General Internal Medicine 09/09/19 documented as of this encounter
--- OUTSIDE RECORDS SUMMARY | 2024-12-20 11:20 | XMS_ITS | Encounter Summary ---
Author Organization [employer] Address [address] [facility] [address] [place] [address] Care Team Providers Care It Solutions Sales Consultant Name Role Phone Corey Canseco MD Primary Care Prov ider Encounter Details Date Type Department Care Team (Late st Contact Info) Description 09/30/2023 Abstract [facility] CH[facility] ADULT DENTAL [address] [place] [address] Maryana Penn, DDS [address] [place] [address] Social History Tobacco Use Types Packs/Day Years [...] Info) Description 01/24/2025 8:30 AM EDT Telemedicine [facility] MEDICINE [address] [place] [address] Gabriel Rothman MD [address] [place] [address] 03/03/2025 8:30 AM EDT Telemedicine [facility] CHC MED & PEDS [address] [place] [address] Corey Canseco MD [address] [place] [address] documented as of this encounter Visit Diagnoses Not on filedocumented in this encounter Additional Health Concerns Assessment Noted Time PHQ-9 Depression Total Score: 5 08/27/20 23 9:37 AM EST documented as of this encounter Care Teams It Solutions Sales Consultant Relationship Specialty Start Date End Date Corey Canseco MD [address] [place] [address] PCP - General Internal Medicine 09/09/19 documented as of this encounter
== END 2024-12-20 08:53 | disposition home or self-care (01) ==
LOC: HO.HOSX 08:52
PROVIDERS: PCP Internal Medicine; Visit Provider Physician Assistant
DX: M54.9 Dorsalgia, unspecified (principal); M71.38 Other bursal cyst, other site
CPT/HCPCS: 72110; 99202

== ENCOUNTER → 2024-12-20 09:59 | Outpatient (BNV) | payer MEDICARE, SELFPAY | PROVIDERS: PCP Internal Medicine; Visit Provider Radiology Neuroradiology | DX: M54.9 Dorsalgia, unspecified (principal) | CPT/HCPCS: 72110 ==

== ENCOUNTER 2025-02-10 11:22 | Outpatient (AMB) | payer MEDICARE, SELFPAY ==
--- NOTE | 2025-02-10 11:49 | A.SPINEOV_ITS ---
Intake Visit Reasons: Discuss surgery Intake Note: Mr. Tobias is here today to Discuss Surgery. 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 He is scheduled to undergo an oblique lumbar interbody fusion L4-5 on 02/21/2025 for lumbar spondylolisthesis and a synovial cyst causing back pain and neurogenic claudication symptoms. We went over the procedure, expected postoperative course and medications and answered all questions satisfactorily. I spent 20 minutes in his consult Isaias Santoyo MD, PhD Spine Fellowship Trained Neurosurgeon Director, [facility] Coding Level of Care Code Est Pt Level 3 (52796) Diagnoses Synovial cyst of lumbar facet joint M71.38
--- OUTSIDE RECORDS SUMMARY | 2025-02-10 12:16 | XMS_ITS | Encounter Summary ---
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 And Reducer Machine Name Role Phone Corey Canseco MD Primary Care Prov ider Reason for Visit * Reason Comments Med Refill Encounter Details Date Type Department Care Team ([facility] st Contact Info) Description 07/04/2024 Refill [facility] CHC MED & PEDS [address] [place] [address] Corey Canseco MD [address] [place] [address] Social History Tobacco Use Types Packs/Day Years [...] t he electric, gas, oil or water DealTraction threatened to shut off services in your [...] Care Team (Late st Contact Info) Description 03/21/2025 8:30 AM EDT Telemedicine [facility] MEDICINE [address] [place] [address] Gabriel Rothman MD [address] [place] [address] 04/21/2025 8:45 AM EDT Office Visit [facility] CHC MED & PEDS [address] [place], [place] [phone] Corey Canseco MD [address] [place] [address] documented as of this encounter Visit Diagnoses Not on filedocumented in this encounter Additional Health Concerns Assessment Noted Time PHQ-9 Depression Total Score: 9 05/19/20 24 9:41 AM EDT documented as of this encounter Care Teams Featheredger And Reducer Machine Relationship Specialty Start Date End Date Corey Canseco MD [address] [place] [id number] PCP - General Internal Medicine 09/09/19 documented as of this encounter
== END 2025-02-10 12:23 | disposition home or self-care (01) ==
LOC: HO.HNS 11:22
PROVIDERS: PCP Internal Medicine; Visit Provider Neurological Surgery
DX: M71.38 Other bursal cyst, other site (principal)
CPT/HCPCS: 99213

== ENCOUNTER → 2025-02-10 11:22 | Outpatient (BNVA) | payer MEDICARE, SELFPAY | PROVIDERS: PCP Internal Medicine; Visit Provider Neurological Surgery | DX: M71.38 Other bursal cyst, other site (principal) | CPT/HCPCS: 99212 ==

== ENCOUNTER 2025-02-21 06:04 | Inpatient (IN) | payer MEDICARE, SELFPAY ==
[2025-02-01 10:24] VITALS: BP 125/71; PULSE 64; RESP 20; O2SAT 96; BMI 45.7
--- NOTE | 2025-02-01 10:40 | P.CONAN_ITS ---
Documented by User: Manisha Salazar NP 02/17/25 14:09 HPI - Anesthesia Eval Consult details Narrative: 69yo M for L4-5 Oblique Lumbar Interbody Fusion, 02/21/25 s/p Cardioversion 11/2024 s/p total shoulder 06/2024 with GA-ETT 7 Follows [facility] [place] for afib, htn. Last office visit 11/2024 prior to cardioversion. 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 DM: FBS ~ 100-120, A1C ~ 7 Afib: Eliquis - ablation planned for 04/2025 LILLY: CPAP with all sleep BMI: 45.7% Asthma: rare albuterol Anesthesia Pre-Procedure Meds Is the patient on any of the following meds?: GLP1/DPP4 and SGLT2 Inhib PMFSH Active Problems Active Problems: All Active Problems Synovial cyst of lumbar facet joint (Acute) Back pain (Acute) Status post total replacement of left shoulder (Acute) Preop cardiovascular exam (Acute) PAD (peripheral artery disease) (Acute) Bone mass (Acute) Osteoarthritis of left shoulder (Acute) Hyperlipidemia (Acute) Hemorrhoids (Acute) Coronary artery disease (Acute) Abnormal stress test (Acute) Equivocal stress test (Acute) Shortness of breath (Acute) Atrial fibrillation (Acute) Encounter for screening colonoscopy (Acute) History of cardiac cath (Acute) Atrial fibrillation (Acute) Past Medical History Medical History Family history of anesthesia complication Arthritis History of cardioversion Atrial fibrillation Asthma HTN (hypertension) Elevated cholesterol Diabetes Sciatica Sleep apnea Shoulder pain with history of repair of rotator cuff Family History Family History Father Heart disease HTN (hypertension) Mother Atrial fibrillation Sister Diabetes Family history of problems with anesthesia: Yes (sister with awareness under anesthesia and coded during procedure) Surgical History Surgical History History of total replacement of left shoulder joint H/O colonoscopy History of surgical removal of ganglion cyst Hx of rotator cuff surgery History of cardiac cath Hx of elbow surgery History of carpal tunnel release Hx of eye surgery Hx of tonsillectomy Hx of hernia repair Hx of knee surgery History of Problems with Anesthesia: No Social History Social History Household Members: Spouse Housing: House Are you a primary eye care professional to a significant other at home: No Do you presently have visiting nurse or other home services: No Alcohol intake: current Alcohol intake frequency: holidays/special occasions only Patient Tobacco Use Status: Never used Tobacco e-Cigarette/Vaping Use: Never Used Use of substances other than those prescribed or required for medical reasons: Yes Substance Use Type: Marijuana Substance Use Type Other:: edibles- last used one week ago 02/14 Substance Use Frequency: Daily Have you been hit, kicked, punched, or otherwise hurt by someone within the past year? If so, by whom?: No Spiritual Healthcare Practices: no Lutheran Healthcare Practices: no Cultural Healthcare Practices: no Are you DNR?: No Advance Directives Information Provided: Yes (as above noted-to bring copy DOS) Advance Directives on File: No Poor oral hygiene: No service: No Current 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 status: retired Meds Allergies Allergy/AdvReac Type Severity Reaction Status Date / Time iron AdvReac Severe Rash ( Verified 02/21/25 06:22 from oral supplement) Home Medications ?Medication ?Instructions ?Recorded ?Confirmed ?Last Taken ?Type atorvastatin 40 mg tablet 40 mg PO QAM 02/20/22 02/21/25 12/02/24 History cholecalciferol (vitamin D3) 25 25 mcg PO QAM 02/20/22 02/21/25 12/02/24 History mcg (1,000 unit) capsule cyanocobalamin (vitamin B-12) 1,000 mcg PO QAM 02/20/22 02/21/25 12/02/24 History 1,000 mcg tablet (Vitamin B-12) lisinopril 10 mg tablet 10 mg PO QAM 02/20/22 02/21/25 02/20/25 History montelukast 10 mg tablet 10 mg PO BEDTIME 02/20/22 02/21/25 07/12/24 History apixaban 5 mg tablet (Eliquis) 5 mg PO BID 04/24/22 02/21/25 02/18/25 History cetirizine 10 mg tablet 10 mg PO QAM 07/02/22 02/21/25 12/02/24 History tamsulosin 0.4 mg capsule 0.4 mg PO BEDTIME 06/07/24 02/21/25 07/12/24 History blood sugar diagnostic (FreeStyle #10 ea 09/19/24 11/28/24 Unknown History Lite Strips) lancets 33 gauge (Easy Touch Twist #100 ea 09/19/24 11/28/24 Unknown History Lancets) empagliflozin 25 mg tablet 25 mg PO QAM 09/26/24 02/21/25 02/18/25 History (Jardiance) celecoxib 200 mg capsule 200 mg PO BID PRN Pain (Scale 11/22/24 02/21/25 02/14/25 History Score 4-6) gabapentin 300 mg capsule 300 mg PO BID 11/28/24 02/21/25 02/21/25 05:30 History albuterol sulfate 90 mcg/actuation 2 puff inhalation Q4-6H PRN 02/01/25 02/21/25 Unknown History aerosol inhaler (Ventolin HFA) Shortness Of Breath Or Wheezing dulaglutide 3 mg/0.5 mL 3 mg subcut QWEEK 02/01/25 02/21/25 01/26/25 History subcutaneous pen injector (Trulicity) semaglutide 0.25 mg or 0.5 mg (2 0.5 mg subcut QWEEK 02/21/25 02/21/25 02/14/25 History mg/3 mL) subcutaneous pen injector (Ozempic) Exam Height,Weight and Vital Signs: Height 5 ft 7 in Weight 132.449 kg Last Vital Signs Pulse 64 02/01/25 10:24 Resp 20 02/01/25 10:24 BP 125/71 02/01/25 10:24 Pulse Ox 96 02/01/25 10:24 O2 Del Method Room Air 02/01/25 10:24 Pertinent Lab Results Pertinent Lab Results: Lab Results 02/10/25 Range/Units 12:45 Blood Type O Positive Antibody Screen NEGATIVE Laboratory Tests 12/02/24 10:11 WBC 7.1 Hgb 15.7 D Hct 50.0 D Plt Count 177 Sodium 139 Potassium 4.5 Chloride 108 Carbon Dioxide 23 BUN 16 Creatinine 0.80 Narrative Narrative: EKG 11/2024 Details: afib, right axis, septal Q wave, rate 77, Qtc 398ms Per 09/2023 cardiology note: nuclear stress test 03/24/2022 which was equivocal for possible apical and distal lateral wall ischemia. He then underwent a CTA of the coronary arteries on 07/25/2022 which showed mid LAD 50% stenosis, minimal calcifications of the left main, left circumflex and RCA. He then underwent a cardiac catheterization on 09/19/2022 which showed proximal LAD 30-40% stenosis. Nuclear stress test was felt to be false positive. ECHO 2021 Conclusions: - 1. Normal LV systolic function mild LVH 2. Moderate left atrial enlargement 3. Normal cardiac valvular Doppler 4. Mildly dilated ascending aorta at 3.9 cm 5. No gross pericardial effusion Airway Mallampati Class: III TM Dist: <=3cm Neck ROM: Limited Loose/Missing/Broken Teeth: Yes (molars extracted, crowned molars) Heart: RRR Lungs: CTAB Assessment and Plan Assessment Anesthesia Assessment: Anesthesia Plan Discussed and PAT Visit Final Anesthetic Review Family History of Problems with Anesthesia: Yes (sister with awareness under anesthesia and coded during procedure) History of Problems with Anesthesia: No Documented by User: Maria Fernanda Yi MD 02/21/25 07:31 [facility] Past Medical History Medical History Family history of anesthesia complication Arthritis History of cardioversion Atrial fibrillation Asthma HTN (hypertension) Elevated cholesterol Diabetes Sciatica Sleep apnea Shoulder pain with history of repair of rotator cuff Family History Family History Father Heart disease HTN (hypertension) Mother Atrial fibrillation Sister Diabetes Surgical History Surgical History History of total replacement of left shoulder joint H/O colonoscopy History of surgical removal of ganglion cyst Hx of rotator cuff surgery History of cardiac cath Hx of elbow surgery History of carpal tunnel release Hx of eye surgery Hx of tonsillectomy Hx of hernia repair Hx of knee surgery Social History Social History Household Members: Spouse Housing: House Are you a primary eye care professional to a significant other at home: No Do you presently have visiting nurse or other home services: No Alcohol intake: current Alcohol intake frequency: holidays/special occasions only Patient Tobacco Use Status: Never used Tobacco e-Cigarette/Vaping Use: Never Used Use of substances other than those prescribed or required for medical reasons: Yes Substance Use Type: Marijuana Substance Use Type Other:: edibles- last used one week ago 02/14 Substance Use Frequency: Daily Have you been hit, kicked, punched, or otherwise hurt by someone within the past year? If so, by whom?: No Spiritual Healthcare Practices: no Lutheran Healthcare Practices: no Cultural Healthcare Practices: no Are you DNR?: No Advance Directives Information Provided: Yes (as above noted-to bring copy DOS) Advance Directives on File: No Poor oral hygiene: No service: No Current 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 status: retired [employer] Allergies Allergy/AdvReac Type Severity Reaction Status Date / Time iron AdvReac Severe Rash ( Verified 02/21/25 06:22 from oral supplement) Home Medications ?Medication ?Instructions ?Recorded ?Confirmed ?Last Taken ?Type atorvastatin 40 mg tablet 40 mg PO QAM 02/20/22 02/21/25 12/02/24 History cholecalciferol (vitamin D3) 25 25 mcg PO QAM 02/20/22 02/21/25 12/02/24 History mcg (1,000 unit) capsule cyanocobalamin (vitamin B-12) 1,000 mcg PO QAM 02/20/22 02/21/25 12/02/24 History 1,000 mcg tablet (Vitamin B-12) lisinopril 10 mg tablet 10 mg PO QAM 02/20/22 02/21/25 02/20/25 History montelukast 10 mg tablet 10 mg PO BEDTIME 02/20/22 02/21/25 07/12/24 History apixaban 5 mg tablet (Eliquis) 5 mg PO BID 04/24/22 02/21/25 02/18/25 History cetirizine 10 mg tablet 10 mg PO QAM 07/02/22 02/21/25 12/02/24 History tamsulosin 0.4 mg capsule 0.4 mg PO BEDTIME 06/07/24 02/21/25 07/12/24 History blood sugar diagnostic (FreeStyle #10 ea 09/19/24 11/28/24 Unknown History Lite Strips) lancets 33 gauge (Easy Touch Twist #100 ea 09/19/24 11/28/24 Unknown History Lancets) empagliflozin 25 mg tablet 25 mg PO QAM 09/26/24 02/21/25 02/18/25 History (Jardiance) celecoxib 200 mg capsule 200 mg PO BID PRN Pain (Scale 11/22/24 02/21/25 02/14/25 History Score 4-6) gabapentin 300 mg capsule 300 mg PO BID 11/28/24 02/21/25 02/21/25 05:30 History albuterol sulfate 90 mcg/actuation 2 puff inhalation Q4-6H PRN 02/01/25 02/21/25 Unknown History aerosol inhaler (Ventolin HFA) Shortness Of Breath Or Wheezing dulaglutide 3 mg/0.5 mL 3 mg subcut QWEEK 02/01/25 02/21/25 01/26/25 History subcutaneous pen injector (Trulicity) semaglutide 0.25 mg or 0.5 mg (2 0.5 mg subcut QWEEK 02/21/25 02/21/25 02/14/25 History mg/3 mL) subcutaneous pen injector (Ozempic) Assessment and Plan Assessment Anesthesia Assessment: Chart Reviewed Final Anesthetic Review NPO: Yes ASA Class: III Final Preanesthetic Review: No Changes in Pt Med Stat, Meds/Allgs Chart Reviewed, Consent Obtained/Reviewed and Anes Risks/Benef Reviewed Patient Risk: Intermediate Procedure Risk: Intermediate Anesthetic Plan Anesthetic Plan: GA Disposition: Standard PACU
[2025-02-21] VITALS (14 sets, daily range): BP systolic 120–142; BP diastolic 49–78; PULSE 56–74; RESP 10–21; TEMP 36.1–36.5; O2SAT 94–100; BMI 45.2; BMI 46.6
--- NOTE | ~2025-02-21 | FL_ITS ---
EXAMINATION: FL GUIDANCE ONLY HISTORY: L4-5 OLIF COMPARISON: Correlation is made with plain films of the lumbar spine dated 12/20/2024. TECHNIQUE: Fluoroscopy time: 1 minute, 32.8 seconds. Cumulative Dose: 89.143 mGy. DAP: 27.27 mGym2 Images: 7. FINDINGS: Images demonstrate posterior fusion of L4 and L5 with pedicle screws, spinal stabilization rods, and an intervertebral spacer. FL/FL guidance in OR IMPRESSION: Fluoroscopy during procedure. Please see procedure report for additional information. Electronically signed by: Blaze Brandt MD 02/21/2025 01:57 PM EDT
[2025-02-21] MEDS: methocarbamoL 750 MG TABLET PO (06:38)
[2025-02-21] MEDS: Lactated Ringers 1,000 ML 100 ML IVCONT (06:46)
[2025-02-21 06:52] LABS: Glucose, Whole Blood 134 mg/dL (60-115)
--- NOTE | 2025-02-21 07:00 | MHC.SHP ---
Pre-Procedural Eval Section A - 24 Hr Update-Section A only Date of Service: 02/21/25 The patient is an INPATIENT: No Changes since office visit: No Cold of Flu in the past 2 weeks, No New Medical Problems, No Changes in Medication and No Patient answered all questions The patient has been examined within 24 hours of the surgical procedure. The History & Physical has been completed within 30 days and I have reviewed it.: No Section B - Complete if H&P > 30 days Chief Complaint: s/p L4-5 OLIF Allergies: Allergies Allergy/AdvReac Type Severity Reaction Status Date / Time iron AdvReac Severe Rash ( Verified 02/21/25 06:22 from oral supplement) Review of Systems Sugical H&P ROS: Negative: Constitution, Cardiovascular, Respiratory, Neurological, Psychiatric, Hem-Onc, Allergic/Immunologic, Gastrointestinal, Genitourinary, Musculoskeletal, Integumentary, Endocrine and Eyes/Ears/Nose/Throat Exam Surgical H&P Exam: Normal: HEENT, Normal: Heart, Normal: Lungs, Normal: Extremities, Normal: Abdomen, Normal: Skin and Normal: Neurological (awake, alert,oriented x 3 ) Plan Diagnosis/Plan: Unchanged L4-5 oblique lumbar interbody fusion Time Spent With Patient Time: Total time managing care of this patient today _5___ minutes.
[2025-02-21] MEDS: ceFAZolin Sodium/Dextrose,Iso 2 GM/50 ML PIGGYBACK IV (07:40)
--- NOTE | 2025-02-21 10:04 | P.OP_ITS ---
Operative Note Operative Note Date of Service: 02/21/25 Narrative: Preop Diagnosis: 1.) L4-5 spondylolisthesis; severe central stenosis; synovial cyst 2.) Back pain with neurogenic claudication Procedure: 1) L4-5 discectomy, arthrodesis and implantation cage through an anterolateral, retroperitoneal approach 2) L4-5 posterior instrumented fusion 3) allograft 4) Injection of 10 cc of Exparel at the transverse process for a muscular erector spinae block and additional Exparel in paravertebral tissue for postop management Consent Informed Consent was obtained for this operation. I have explained the nature, purpose and benefits of the operation. I have discussed the risks and benefit of the operation including possible complications or adverse events with patient/family. Alternative(s) were discussed with the patient with their relative benefits and risks as well as the consequences of not accepting the operation were included in obtaining consent. Surgeon: WILBERTO GUNDERSON MD, PHD Procedure Assisted By: megan Bueno Description of Procedure This 69 morbidly obese male is suffering from back pain and neurogenic claudication. The MRI shows L4-5 instability with severe central stenosis partially caused by a synovial cyst. The patient was offered an oblique lumbar interbody fusion L4-5 to indirectly decompress the nervous structures. The procedure and complications were explained. The patient is aware that there is a minor possibility that the synovial cyst needs to be resected if he is not symptom free. The patient was consented. The patient was brought to the operating room and endotracheally intubated. The patient was turned in a lateral position with the left side up. Prep and drape was done followed by timeout. A small incision was made in the left lower abdominal quadrant. The muscle fascia was opened after which the 3 muscle layer was split to enter the retroperitoneal space. Dilators were docked in the anterior one third of the L4-5 disc space followed by a retractor. The retractor was opened. The L4-5 disc space was exposed. An annulotomy was done after which an elevator White was used to release the disc material from its endplates and to perforate the contralateral side. A partial discectomy was done. An 8 and 10 mm height trial implant was inserted. The discectomy was completed. The endplates were prepared. An 10 x 50 mm with 0 degree lordosis 4 web cage filled with allograft was inserted into the disc space under fluoroscopic guidance. This resulted in increase in disc height and scientologist of the anatomical alignment.. The retractor was removed. Hemostasis was done. The incision was closed in 2 layers. Steri-Strips used to approximate incision. An OpSite with Tegaderm was used to cover the incision. This marked first part of the procedure. The patient was turned prone on the Tim spine table. 2C arms were installed for fluoroscopy. Prep and drape was done followed by a second timeout. Injection of 10 cc of Exparel at the bilateral L5 transverse processi for a muscular erector spinae block. Two paramedian incisions were made lateral from the L4 and L5 pedicles. The muscle fascia was opened after which the muscle layer was split bluntly to expose the posterolateral gutter. The following steps were taken. A pediguard tap was used to create a transpedicular trajectory into the vertebral body. A K wire was placed. A specially designed instrument was advanced over the K wire to decorticate the posterolateral gutter in preparation for the posterolateral fusion. A pedicle screw was advanced over the K wire and the K wire was removed. The steps were done for the bilateral L4 and L5 pedicles. A t otal of 4 screws were placed with a diameter of 6.5 x 50 mm with the exception of the left L4 pedicle where a 6.5 x 45 mm screw was inserted. Pedicle screws were connected with 45 mm fina bilaterally and locked down with locking caps. The extension towers were removed. The posterolateral gutter was filled with allograft to complete the posterolateral L4-5 fusion Hemostasis was done and the incision was closed in 2 layers. Steri-Strips were used to approximate the incision. An OpSite with tegaderm was used to cover the incision. All sponge and needle counts were correct. Patient was extubated and transferred in stable is to recovery room. Anesthesia: General Estimated Blood Loss (ml): 70 Duration of Surgery: 2 hours 15 minutes Complications: None Postoperative Plan: Admit to inpatient for clinical observation
--- NOTE | 2025-02-21 10:41 | PHA.MEDREC ---
Addendum entered by Carlos Duvall francis 02/21/25 10:58: confirmed pt is no longer taking Trulicity. Pt takes Ozempic on Tuesdays. Original Note: Pharmacy Consult ? Medication Reconciliation Pharmacy has reviewed the the medication reconciliation completed by nursing. Will follow up on the day of the week for Trulicity and Ozempic.
[2025-02-21] MEDS: fentaNYL citrate/PF 100 MCG/2 ML VIAL 50 MCG IVPUSH ×2 (10:53→11:01)
[2025-02-21] MEDS: 0.9 % Sodium Chloride 1,000 ML 75 ML IVCONT (11:53)
[2025-02-21 11:54] LABS: Glucose, Whole Blood 188 mg/dL (60-115)
[2025-02-21] MEDS: HYDROmorphone HCl 1 MG/ML SYRINGE IVPUSH (12:07)
[2025-02-21 13:09] LABS: Glucose, Whole Blood 202 mg/dL (60-115)
[2025-02-21] MEDS: Insulin Lispro 100 UNIT/ML 3 ML VIAL SUBCUT ×3 (13:09→20:21)
[2025-02-21] MEDS: oxyCODONE HCl Immed Release 5 MG TABLET PO ×3 (14:02→22:17)
[2025-02-21] MEDS: Acetaminophen 1,000 MG/100 ML PIGGYBACK 400 MG IV ×2 (15:32→20:05)
[2025-02-21] MEDS: ceFAZolin Sodium 3 GM in 0.9 % Sodium Chloride 100 ML IV ×2 (15:54→20:22)
[2025-02-21 16:39] LABS: Glucose, Whole Blood 214 mg/dL (60-115)
[2025-02-21] MEDS: Docusate Sodium 100 MG CAPSULE PO (20:01)
[2025-02-21] MEDS: Tamsulosin HCL 0.4 MG CAPSULE PO (20:01)
[2025-02-21] MEDS: Metoprolol Tartrate 12.5 MG HALFTAB PO (20:01)
[2025-02-21] MEDS: Flecainide Acetate 50 MG TABLET PO (20:01)
[2025-02-21] MEDS: Gabapentin 300 MG CAPSULE PO (20:01)
[2025-02-21] MEDS: Montelukast Sodium 10 MG TABLET PO (20:01)
[2025-02-21 20:10] LABS: Glucose, Whole Blood 211 mg/dL (60-115)
[2025-02-22] MEDS: ceFAZolin Sodium 3 GM in 0.9 % Sodium Chloride 100 ML IV (01:55)
[2025-02-22] MEDS: 0.9 % Sodium Chloride 1,000 ML 75 ML IVCONT (02:29)
[2025-02-22] MEDS: Acetaminophen 1,000 MG/100 ML PIGGYBACK 400 MG IV ×2 (02:31→07:57)
[2025-02-22 03:48] VITALS: BP 138/68; PULSE 69; RESP 18; TEMP 36.9; O2SAT 97
[2025-02-22] MEDS: oxyCODONE HCl Immed Release 5 MG TABLET PO ×2 (04:46→08:52)
[2025-02-22 07:24] VITALS: BP 143/64; PULSE 65; RESP 18; TEMP 36.5; O2SAT 97
[2025-02-22 07:33] LABS: Glucose, Whole Blood 149 mg/dL (60-115)
--- NOTE | 2025-02-22 07:40 | P.DS_ITS ---
DS: Providers Provider Date of Service: 02/22/25 Date of admission: 02/21/25 06:04 Date of discharge: 02/22/25 Primary care physician: Corey Carcamo MD DS: Summary Time Attestation Discharge Coordination Time (in mins): 12 Quality: Safe Use of Opioids Does Pt have an Active Cancer Diagnosis on the Problem List?: No Quality: Stroke Does the patient have a stroke diagnosis?: No Physical Exam Vital Signs: Vital Signs: Last Vital Signs Temp 97.7 F 02/22/25 07:24 Pulse 65 02/22/25 07:24 Resp 18 02/22/25 07:24 BP 143/64 H 02/22/25 07:24 Pulse Ox 97 02/22/25 07:24 O2 Del Method Room Air 02/22/25 07:24 O2 Flow Rate 2 02/21/25 11:48 BMI result Body Mass Index 46.6 DS: Data Data Completed and Pending Labs on day of discharge: Laboratory Results - last 24 hr 02/21/25 02/21/25 02/21/25 11:49 13:04 16:33 POC Glucose 188 H 202 H 214 H 02/21/25 02/22/25 20:06 07:22 POC Glucose 211 H 149 H Discharge Plan Discharge Anticipated Discharge Date/Time: 02/22/25 07:40 Patient Disposition: Home, Self-Care Discharge Diagnosis: s/p L4-5 OLIF Referrals: Corey Canseco MD [Primary Care Provider] - 1 Week Discharge Medications: New oxycodone 5 mg tablet See Rx Instructions .ROUTE .COMPLEX PRN (Reason: pain) Qty: 30 0RF Rx Instructions: Take 1-2 tablets by mouth every 4 hours; Partial Fill upon patient request. Continued metoprolol tartrate 25 mg tablet 12.5 mg PO BID 90 Days Qty: 90 1RF Rx Instructions: ( does not need refill at this time - dose reduced) flecainide 50 mg tablet 50 mg PO Q12H Qty: 60 5RF albuterol sulfate [Ventolin HFA] 90 mcg/actuation Hfa Aerosol Inhaler 2 puff INHALATION Q4-6H PRN (Reason: Shortness Of Breath Or Wheezing) Ozempic 0.25 mg or 0.5 mg (2 mg/3 mL) Pen Injector 0.5 mg SUBCUT TU atorvastatin 40 mg tablet 40 mg PO QAM lisinopril 10 mg tablet 10 mg PO QAM montelukast 10 mg tablet 10 mg PO BEDTIME cyanocobalamin (vitamin B-12) [Vitamin B-12] 1,000 mcg tablet 1,000 mcg PO QAM cholecalciferol (vitamin D3) 25 mcg (1,000 unit) capsule 25 mcg PO QAM cetirizine 10 mg tablet 10 mg PO QAM tamsulosin 0.4 mg capsule 0.4 mg PO BEDTIME Citrucel 500 mg tablet 500 mg PO DAILY Qty: 90 2RF Rx Instructions: take it with full glass of water Jardiance 25 mg tablet 25 mg PO QAM (DME) lancets [Easy Touch Twist Lancets] 33 gauge misc See Rx Instructions .ROUTE TID Qty: 100 Rx Instructions: As directed (DME) FreeStyle Lite Strips Strip See Rx Instructions .ROUTE TID Qty: 10 Rx Instructions: As directed gabapentin 300 mg capsule 300 mg PO BID celecoxib 200 mg capsule 200 mg PO BID PRN (Reason: Pain (Scale Score 4-6)) Held Eliquis 5 mg tablet 5 mg PO BID Hold Instructions: Resume on 02/23/25. Restart 02/23 Discharge Orders: Discharge Order (Routine); Ordered 02/22/25 Ordered By: Bennie Morales Diet: Advance to usual diet Activity on Discharge: As tolerated Stand Alone Forms: Patient Portal Discharge page Print Language: Mongolian Activity Restrictions/Additional Instructions: After your spinal surgery we ask you to observe the following restrictions/guidelines: Activity: It is normal to feel some discomfort as you increase your activity, but that will improve with time. We ask you avoid heavy lifting or acitivities that cause pain. As a general rule, 8lbs is a safe limit for lifting right after surgery. Walk as much as you feel comfortable but not to exhaustion. You will feel extra tired the first few days after surgery. Stay well hydrated. It is OK to walk up and down stairs You may return to driving when you are off narcotics (such as vicodin, oxycodone, dilaudid, etc), and you are back to normal functional capacity. If you have any concerns please check with office before driving. Return to work is specific to each patient and each surgery, so please speak with your doctor/PA at first follow up. Please bring paperwork such as FMLA at that time if you need it filled out. Medications: You can restart your Eliquis on postop day 2 (02/23/25) We recommend you take 1,000mg Tylenol every 8 hours for the first few weeks after surgery, if you do not have any liver issues and can tolerate this medication. Do not exceed 4,000mg daily. We will give you a short supply of narcotics after surgery (usually one weeks worth). If you need more please call the office but do not use more than prescribed. You will need to give our office 48 hours notice if you need narcotics refilled and we do not fill narcotics on weekends or evenings. If you are on a narcotic, it is a good idea to take a stool softener such as colace or senna to avoid constipation If you take blood thinner such as aspirin, Plavix, Coumadin, Effient, Eliquis etc for conditions such as Afib, DVT, Pulmonary embolus, coronary disease, stents etc please speak with your surgeon about specific details as to when you can resume these medications. You can resume NSAIDs on post op day 1 (eg: Motrin, Naproxen, etc). Follow up: Please call the office, , after surgery to arrange a 3 week follow up for wound check. Wound Care: You may remove your dressing on the first day after surgery. ?You may ?leave open to air. Please do not remove the steri strips underneath. they will fall off on their own in one week. IT IS NORMAL FOR THE WOUND TO OOZE OR BE BLOODY FOR A FEW DAYS AFTER SURGERY. ?IF THIS HAPPENS JUST PLACE NEW DRESSING OVER IT TO AVOID STAINING CLOTHES. You may shower on post op day # 1 We ask that you do not let the water soak the wound. If it does get wet, just towel dry lightly. Please do not scrub your incision or place any type of chemical/ointment on the wound. No tub baths, pools or jacuzzis for one month. If you have any leaking or redness from your wound, or fevers, please call the office. Care Plan Goals: Return to normal activity as tolerated Health Concerns: None Plan of Treatment: Follow-up in clinic in 2-3 weeks. Assessment: POD: 1 Procedure: L4-5 OLIF Olive is a pleasant 69-year-old male who underwent L4-[address] Santoyo yesterday. He is progressing as expected. We saw him standing next to his bed on 3-S this morning. Patient reports he is up, walking around is otherwise doing well. He feels his bilateral lower extremity pain symptoms are much better than pre-operatively. He still reports mild pain low back pain, with good relief with pain medication. He is voiding well, tolerating diet. Afebrile, vital signs stable. Full strength 5/5 LE's. Back dressings have some staining without signs of hematoma. No active sanguineous drainage. Area is dry. Plan: Jesus 69-year-old male who underwent L4-[address] Santoyo yesterday. He is meeting all expected postoperative milestones. Patient meets criteria to be medically discharged home. He was seen at bedside with Dr. Santoyo. I will send in a prescription for oxycodone to the pharmacy here at [facility]. Bennie Santoyo MD,PhD [facility]
--- NOTE | 2025-02-22 07:46 | HO.NEUROPN_ITS ---
Neurosurgery Operative Note Date of Service: 02/22/25 Narrative: POD: 1 Procedure: L4-5 OLIF Olive is a pleasant 69-year-old male who underwent L4-[address] Santoyo yesterday. He is progressing as expected. We saw him standing next to his bed on 3-S this morning. Patient reports he is up, walking around is otherwise doing well. He feels his bilateral lower extremity pain symptoms are much better than pre-operatively. He still reports mild pain low back pain, with good relief with pain medication. He is voiding well, tolerating diet. Afebrile, vital signs stable. Full strength 5/5 LE's. Back dressings have some staining without signs of hematoma. No active sanguineous drainage. Area is dry. Plan: Jesus 69-year-old male who underwent L4-[address] Santoyo yesterday. He is meeting all expected postoperative milestones. Patient meets criteria to be medically discharged home. He was seen at bedside with Dr. Santoyo. I will send in a prescription for oxycodone to the pharmacy here at [facility]. Bennie Santoyo MD,PhD [facility]
[2025-02-22] MEDS: Empagliflozin 25 MG TABLET PO (07:58)
[2025-02-22] MEDS: Cyanocobalamin (Vitamin B-12) 1,000 MCG TABLET 1000 MCG PO (07:58)
[2025-02-22] MEDS: Atorvastatin Calcium 40 MG TABLET PO (07:59)
[2025-02-22] MEDS: Docusate Sodium 100 MG CAPSULE PO (07:59)
[2025-02-22] MEDS: Loratadine 10 MG TABLET PO (07:59)
[2025-02-22] MEDS: Metoprolol Tartrate 12.5 MG HALFTAB PO (07:59)
[2025-02-22] MEDS: Gabapentin 300 MG CAPSULE PO (07:59)
[2025-02-22] MEDS: lisinopriL 10 MG TABLET PO (07:59)
[2025-02-22] MEDS: Cholecalciferol (Vitamin D3) 25 MCG TABLET PO (07:59)
--- NOTE | 2025-02-22 09:00 | PC.NURSE ---
Pt for discharge to home , surgical site dressing changed . pt pain well controlled on current regime . pt accepting of discharge to home and receptive to teaching
--- NOTE | 2025-02-22 09:33 | HO.POSTANES ---
Post Anesthesia Evaluation Post Anesthesia Evaluation Date of Service: 02/22/25 Vital Signs: Vital Signs Temp Pulse Resp BP Pulse Ox O2 Del Method 02/22/25 07:24 97.7 F 65 18 143/64 H 97 Room Air 02/22/25 03:48 98.5 F 69 18 138/68 97 CPAP 02/21/25 23:27 97.7 F 72 18 132/75 96 CPAP Anesthesia: General Endotracheal-GETA Mental Status: Awake Pain Control: Satisfactory Nausea/Vomiting: None Hydration: Adequate Anesthesia-Related Issues: No Anes. Related Issues
--- NOTE | 2025-02-22 09:47 | MHC.CM.PN ---
Addendum entered by Maday Orosco RN 02/22/25 10:33: PT DISCHARGING HOME SELF CARE, PT'S WILL TRANSPORT Original Note: IMM 02/22/25, EMR REVIEWED PT S/P L4-5 ORIF, CM MET W/PT WHO IS A&OX4, PT REPORTS HE LIVES W/, IS FULLY INDEP W/CARE, USES A CPAP AND NO HOME SERVICES, PT'S GOAL FOR DC IS TODAY ADDY. PT VERIFIES PCP ON FILE IS CORRECT AND HAS COMPLETED A HCP THAT NAMES HIS BIENVENIDO CHISHOLM #ON FILE [facility] AND ALTERNATE IS SON EDDIE [phone], COPY UPLOADED TO [facility] AND PLACED IN CHART.
== END 2025-02-22 10:39 | disposition home or self-care (01) | DRG 451 ==
LOC: HO.SSSA 06:29 → HO.S3 11:03
PROVIDERS: Admitting Provider Neurological Surgery; PCP Internal Medicine; Visit Provider Neurological Surgery
PROC: 0SG00A0 Fusion of Lumbar Vertebral Joint with Interbody Fusion Device, Anterior Approach, Anterior Column, Open Approach (ICD-10-PCS; principal; 2025-02-21 07:30)
DX: M48.062 Spinal stenosis, lumbar region with neurogenic claudication (principal); E11.9 Type 2 diabetes mellitus without complications; I10 Essential (primary) hypertension; M71.38 Other bursal cyst, other site; Z79.01 Long term (current) use of anticoagulants; Z79.899 Other long term (current) drug therapy
CPT/HCPCS: 82947; 86850; 86900; 86901; 97161; C1713; C1889; J0131; J0665; J0666; J0690; J1100; J1171; J2003; J2250; J2405; J2704; J3010; L8699

== ENCOUNTER → 2025-02-21 06:04 | Outpatient (BNV) | payer MEDICARE, SELFPAY | PROVIDERS: Admitting Provider Neurological Surgery; PCP Internal Medicine; Visit Provider Neurological Surgery | DX: M43.16 Spondylolisthesis, lumbar region (principal) | CPT/HCPCS: 20930; 22558; 22612; 22840; 22853 ==

== ENCOUNTER 2025-03-14 13:22 | Outpatient (AMB) | payer MEDICARE, SELFPAY ==
--- NOTE | 2025-03-14 13:23 | HO.SPINEOV ---
Intake Visit Reasons: 1st post op Intake Note: Mr. Tobias is here today for his 1st post op. Brewer Helper Required: No Allergies iron Adverse Reaction (Severe, Verified 02/21/25 06:22) Rash ( from oral supplement) Assessment & Plan Assessment & Plan (1) Lumbago: Code(s): M54.50 - Low back pain, unspecified Category: Medical Plan Procedure: L4-5 OLIF Olive is a pleasant 69-year-old male who underwent L4-[address] Santoyo on 02/21/2025. He comes in today for his 1st postoperative visit. He reports that he has been feeling much better since his surgery than he did prior to surgery. He still has mild low back pain, with good relief with tramadol medication. He feels the tingling sensation in his legs, and the right sided posterior buttocks pain he has pre-operatively is much better than it was prior to surgery. He asked several questions regarding the postoperative healing course, all of which I answered to the best of my ability. No new neurological deficits. The patient ambulates well and rises from a seated position without difficulty. His posterior and lateral incision sites are closed and well healing. I would like to follow up with the patient again in 6 weeks for his 2nd postop visit and obtain a set of x-rays. Bennie Santoyo MD,PhD [facility] Orders: Orders XR lumbar spine 4V min 03/14/25 M54.50 - Low back pain, unspecified Medications: Discontinued oxycodone Discontinued Reason: Doctor's Order Take 1-2 tablets by mouth every 4 hours; Partial Fill upon patient request. 30 tabs 0RF pain Coding Level of Care Code Global (09244) Diagnoses Lumbago M54.50
--- OUTSIDE RECORDS SUMMARY | 2025-03-14 14:33 | XMS_ITS | Encounter Summary ---
Author Organization [employer] Address [address] [facility] [address] [place] [address] Care Team Providers Care Candle Molder Name Role Phone Corey Canseco MD Primary Care Prov ider Reason for Visit * Reason Comments Med Refill Encounter Details Date Type Department Care Team ([facility] st Contact Info) Description 07/04/[address] [facility] MED & PEDS [address] [place] [address] Corey Canseco MD [address] [place] [address] Social History Tobacco Use Types Packs/Day Years [...] t he electric, gas, oil or water [employer] threatened to shut off services in your [...] Info) Description 03/21/2025 8:[address] [facility] MEDICINE [address] [place] [address] Gabriel Rothman MD [address] [place] [address] 04/21/2025 8:45 AM EDT Office Visit [facility] [address], [place] [phone] Corey Canseco MD [address] [place] [address] documented as of this encounter Visit Diagnoses Not on filedocumented in this encounter Additional Health Concerns Assessment Noted Time PHQ-9 Depression Total Score: 9 05/19/20 24 9:41 AM EDT documented as of this encounter Care Teams Candle Molder Relationship Specialty Start Date End Date Corey Canseco MD [address] [place] [id number] PCP - General Internal Medicine 09/09/19 documented as of this encounter
== END 2025-03-14 13:48 | disposition home or self-care (01) ==
LOC: HO.HNS 13:22
PROVIDERS: PCP Internal Medicine; Visit Provider Physician Assistant
DX: M54.50 Low back pain, unspecified (principal)
CPT/HCPCS: 99024

== ENCOUNTER 2025-03-14 13:22 | Outpatient (REF) | payer MEDICARE, SELFPAY | END 2025-03-14 13:23 | disposition home or self-care (01) | LOC: HO.HOSX 13:22 | PROVIDERS: PCP Internal Medicine; Visit Provider Physician Assistant | DX: G89.18 Other acute postprocedural pain (principal); M54.50 Low back pain, unspecified | CPT/HCPCS: 99212 ==

== ENCOUNTER 2025-04-24 13:21 | Outpatient (REF) | payer MEDICARE, OTHER, SELFPAY ==
--- NOTE | ~2025-04-24 | XR_ITS ---
EXAMINATION: X-ray lumbar spine CLINICAL INFORMATION: Low back pain. TECHNIQUE: AP and lateral views. Lateral views in neutral flexion and extension position.. COMPARISON: December 20, 2024. FINDINGS: Status post transpedicle screws placement at L4 and L5 bilaterally. Intervertebral disc height at L4-5. No gross motion at L4-5 during flexion and or extension position. There is a 2 mm retrolisthesis during extension position which reduces in neutral and flexion position at L3-4. Multilevel marginal osteophyte formation and endplate sclerosis throughout the axial skeleton. S-shaped curvature of the thoracolumbar spine. No lytic or blastic lesions. Vascular complications, aorta. XR/XR lumbar spine 4V min IMPRESSION: Status post posterior fusion L4-5 and intervertebral disc spacer placement/arthrodesis at L4-5. Probable instability at L3-4. Atherosclerosis disease, aorta. Multilevel thoracolumbar spondylosis. Electronically signed by: Bryon Becerra MD 04/24/2025 02:40 PM EDT
== END 2025-04-24 13:22 | disposition home or self-care (01) ==
LOC: HO.HOSX 13:21
PROVIDERS: PCP Internal Medicine; Visit Provider Physician Assistant
DX: Z47.89 Encounter for other orthopedic aftercare (principal); M54.50 Low back pain, unspecified; Z98.1 Arthrodesis status
CPT/HCPCS: 72110; 99212

== ENCOUNTER 2025-04-24 13:21 | Outpatient (AMB) | payer MEDICARE, SELFPAY ==
--- OUTSIDE RECORDS SUMMARY | 2025-04-24 13:31 | XMS_ITS | Encounter Summary ---
Author Organization [employer] Address [address] [facility] [address] [place] [address] Care Team Providers Care Poker Supervisor Name Role Phone Corey Canseco MD Primary Care Prov ider Reason for Visit * Reason Comments Med Refill Encounter Details Date Type Department Care Team ([facility] st Contact Info) Description 07/04/2024 Refill [facility] MED & PEDS [address] [place] [address] Corey Canseco MD [address] [place] [address] Social History Tobacco Use Types Packs/Day Years [...] documented in this encounter Plan of Treatment Not on file documented as of this encounter Visit Diagnoses Not on filedocumented in this encounter Additional Health Concerns Assessment Noted Time PHQ-9 Depression Total Score: 9 05/19/20 24 9:41 AM EDT documented as of this encounter Care Teams Poker Supervisor Relationship Specialty Start Date End Date Corey Canseco MD [address] [place] [phone] PCP - General Internal Medicine 09/09/19 documented as of this encounter
--- NOTE | 2025-04-24 13:53 | HO.SPINEOV ---
Intake Visit Reasons: 2nd post op with xrays Intake Note: Mr. Tobias is here today for his 2nd post-op visit. Allergies iron Adverse Reaction (Severe, Verified 02/21/25 06:22) Rash ( from oral supplement) Assessment & Plan Assessment & Plan (1) S/P lumbar fusion: Code(s): Z98.1 - Arthrodesis status Category: Surgical Plan Procedure: L4-5 OLIF Olive is a pleasant 69-year-old male who underwent L4-[address] Santoyo on 02/21/2025. He comes in today for his 2nd postoperative visit. He obtained a set of x-rays prior to this appointment which we reviewed. Shows stable placement of his surgical construct with no changes from fluoroscopy. He reports that overall he is doing well since his surgery, and in his no longer taking tramadol. He has only been utilizing acetaminophen as needed. He is still getting up and going for walks daily. No new neurological deficits. The patient ambulates well and rises from a seated position without difficulty. His incision sites are fully healed. I would like to follow up with the patient again in 1 year out from surgery and obtain a CT scan 10 months out from his surgery. Bennie Santoyo MD,PhD [facility] Coding Level of Care Code Global (64735) Diagnoses S/P lumbar fusion Z98.1
== END 2025-04-24 14:07 | disposition home or self-care (01) ==
LOC: HO.HNS 13:21
PROVIDERS: PCP Internal Medicine; Visit Provider Physician Assistant
DX: Z98.1 Arthrodesis status (principal)
CPT/HCPCS: 99024

== ENCOUNTER → 2025-04-24 13:25 | Outpatient (BNV) | payer MEDICARE, SELFPAY | PROVIDERS: PCP Internal Medicine; Visit Provider Radiology Diagnostic Radiology | DX: M54.50 Low back pain, unspecified (principal) | CPT/HCPCS: 72110 ==

== ENCOUNTER 2025-05-10 15:04 | Outpatient (AMB) | payer MEDICARE, SELFPAY ==
--- OUTSIDE RECORDS SUMMARY | 2025-05-05 19:37 | XMS_ITS | Continuity of Care Document ---
Author Organization [facility] ter Address [address] [place] [id number]- Care Team Providers Care Sloop Captain Name Role Phone Trish Carcamo MD, Corey Primary Care Phys [facility] Encounter [facility] ACCT R [id number] Date(s): 05/05/25 - 05/05/[address] [id number] Discharge Disposition: A-D/C Home Attending Physician: Simon Eastman MD Admitting Physician: Simon Eastman MD Referring Physician: Simon Eastman MD Encounter Type: Disch Daystay Allergies, Adverse Reactions, Alerts Substance Criticality Severity Reaction Reaction Severity Status ferrous sulfate Acti ve Immunizations Given and Recorded Vaccine Date Status Refusal Reason pneumococcal 23-valent vaccine 02/07/16 Given Medications Accu-Chek Multiclix Drum Lancets See Instructions, # 25 cartridge, Refills 6, Tot. Refills 6, Maintenance, Pt to check blood sugar 3-4 times daily as directed for T2DM, 11/23/12 9:20:22 AM EDT Start Date: 11/23/12 Status: Ordered Quantity: 25.0 Unit: cartridge Repeat number: 7 ACCU-CHEK Smartview Test Strips See Instructions, # 150 each, Refills 5, Tot. Refills 5, Maintenance, Pt to check blood sugars 4-6 times per day for Type 2 Diabetes Mellitus, 10/29/12 4:43:14 PM EST Start Date: 10/29/12 Stop Date: 04/27/13 Status: Ordered Quantity: 150.0 Unit: each Repeat number: 6 ACCU-CHEK Smartview Test Strips See Instructions, # 200 each, Refills 5, Tot. Refills 5, Maintenance, use as directed for Type 1 Diabetes Mellitus, test 4-6x daily, 05/19/13 4:27:51 PM EDT, Compound Start Date: 05/19/13 Stop Date: 11/15/13 Status: Ordered Quantity: 200.0 Unit: each Repeat number: 6 CeleBREX 200 mg oral capsule 1 capsule = 200 mg, By Mouth, prn, 0 Refills, Maintenance, 01/16/25 8:00:00 AM EDT, Partial fill uponpatient request if the prescription is for a schedule II opioid drug. Start Date: 01/16/25 Status: Ordered Repeat number: 1 Durable Medical Equipment See Instructions, Maintenance, CPAP supplies all masks, cushions headgear filters tubing humidification chamber x 99months DX: G47.33[facility] Jacinto Suero 01/18/18, 02/15/18 4:50:08 PM EDT, Compound Start Date: 02/15/18 Status: Ordered Repeat number: 1 Eliquis 5 mg oral tablet TAKE ONE TABLET BY MOUTH IN THE MORNING AND EVENING Start Date: 09/19/22 Status: Ordered Repeat number: 1 Fiber Lax 625 mg oral tablet 1 tablet = 625 mg, By Mouth, Daily, 0 Refills, Maintenance, 05/05/25 10:03:00 AM EDT, Partial fill upon patient request if the prescription is for a schedule II opioid drug. Start Date: 05/05/25 Status: Ordered Repeat number: 1 flecainide 50 mg oral tablet TAKE ONE TABLET TWICE DAILY IN THE MORNING AND AT BEDTIME Start Date: 01/16/25 Status: Ordered Repeat number: 1 gabapentin 300 mg oral capsule 300 mg, 1, capsule, By Mouth, 2 times a day, # 270 capsule, Refills 0, Maintenance, 01/16/25 7:57:00 AM EDT, Partial fill upon patient request if the prescription is for a schedule II opioid drug. Start Date: 01/16/25 Status: Ordered Quantity: 270.0 Unit: capsule Repeat number: 1 High Potency Vitamin D3 25 mcg (1000 intl units) oral capsule 1 capsule = 25 mcg, By Mouth, Daily, 0 Refills, Maintenance, 05/05/25 10:06:00 AM EDT, Partial fill upon patient request if the prescription is for a schedule II opioid drug. Start Date: 05/05/25 Status: Ordered Repeat number: 1 Jardiance = 25 mg, By Mouth, Daily in AM, 0 Refills, Maintenance, 05/13/21 9:15:00 AM EDT, Partial fill upon patient request if the prescription is for a schedule II opioid drug. Start Date: 05/13/21 Status: Ordered Repeat number: 1 Lipitor 40 mg oral tablet 1 tablet = 40 mg, By Mouth, Daily in AM, 40 mg by mouth every other day in pm, 0 Refills, Maintenance, 06/30/12 4:59:43 PM EDT Start Date: 06/30/12 Status: Ordered Repeat number: 1 Lisinopril = 10 mg, By Mouth, Daily, 0 Refills, Maintenance, 05/13/21 9:16:00 AM EDT, Partial fill upon patientrequest if the prescription is for a schedule II opioid drug. Start Date: 05/13/21 Status: Ordered Repeat number: 1 metoprolol 25 mg oral tablet 12.5 mg, 0.5, tablet, By Mouth, 2 times a day, Refills 0, Maintenance, 07/25/22 9:06:00 AM EST, Partial fill upon patient request if the prescription is for a schedule II opioid drug. Start Date: 07/25/22 Status: Ordered Repeat number: 1 Montelukast = 10 mg, By Mouth, Daily, 0 Refills, Maintenance, 05/13/21 9:15:00 AM EDT, Partial fill upon patientrequest if the prescription is for a schedule II opioid drug. Start Date: 05/13/21 Status: Ordered Repeat number: 1 Ozempic (0.25 mg or 0.5 mg dose) See Instructions, 0 Refills, Maintenance, 05/05/25 10:07:00 AM EDT, Partial fill upon patient request if the prescription is for a schedule II opioid drug. Start Date: 05/05/25 Status: Ordered Repeat number: 1 ProAir HFA 90 mcg/inh inhalation aerosol with adapter 2 puffs, Inhalation, 4 times a day, 0 Refills, Maintenance, 06/30/12 5:01:45 PM EDT Start Date: 06/30/12 Status: Ordered Repeat number: 1 tamsulosin 0.4 mg oral capsule TAKE ONE CAPSULE EVERY NIGHT AT BEDTIME Start Date: 01/16/25 Status: Ordered Repeat number: 1 Vitamin B12 = 1,000 mcg, 0 Refills, Maintenance, 01/16/25 7:59:00 AM EDT, Partial fill upon patient request if the prescription is for a schedule II opioid drug. Start Date: 01/16/25 Status: Ordered Repeat number: 1 ZyrTEC 10 mg oral tablet 1 tablet = 10 mg, By Mouth, Daily, 0 Refills, Maintenance, 07/25/22 9:08:00 AM EST, Partial fill upon patient request if the prescription is for a schedule II opioid drug. Start Date: 07/25/22 Status: Ordered Repeat number: 1 Problem List Condition Confirmation Course Effective Dates Status Health St atus Informant Arthritis of knee, degenerative Confirmed Active DM II (or NOS), uncontrolled Confirmed Active HLD (hyperlipidemia) Confirmed Active Hypertension Confirmed Active Morbid obesity Confirmed Active Severe obesity Confirmed Active Sleep apnea- cpap 13 cm,[facility] Confirmed Active Social History Social History Type Response Smoking Status Former smoker, quit more than 30 days ago entered on: 01/16/25 Sex Sex Representation Male (finding) EKG study * Event Display: ECG 12-Lead Authored Date: Please click on pdf link to open report * Event Display: ECG 12-Lead Authored Date: Ventricular Rate: 63 BPM Atrial Rate: 63 BPM P-R Interval: 208 ms QRS Duration: 110 ms Q-T Interval: 398 ms QTC Calculation(Bazett): 407 ms P Gamerco: 41 degrees R Gamerco: 40 degrees T Gamerco: 24 degrees Sinus rhythm with Premature atrial complexes Low voltage QRS Borderline ECG When compared with ECG of 16-Jan-2025 07:53, No significant change was found Confirmed by JOANNE NEGRON MD ([id number]) on 05/05/2025 1:32:44 PM [place]: JOANNE NEGRON MD Note * Anayeli ESCALANTE, Cristin: PERFORM Event Display: Discharge/Transfer Note Hospital Authored Date: Nursing Discharge Note Entered On: 05/05/2025 20:36 EDT Performed On: 05/05/2025 20:35 EDT by Cristin Guadalupe RN Nursing Discharge Note 2 Discharge Time : 05/05/2025 19:30 EDT Discharge Level of Care at Discharge : Home/Shelter/Foster Care Patient Left Unit Via : Wheelchair Patient Accompanied Off Unit with : Responsible adult DC Instructions Provided & Signed by Pt : Yes Patient Understands D/C Instructions : Yes Patient Instructions Discharge Signed : Yes Discharge Comments : Patient discharged without issue - right and left groin stable, no ooze or hematoma, ambulating without issue, 100% teachback with all education. Did Pt have Specialty Bed or Wound Vac : No Cristin Guadalupe RN - 05/05/2025 20:35 EDT * Cristin Guadalupe RN: PERFORM Event Display: Patient Education/Instruction Authored Date: [id number] Inpatient Adult Discharge Instructions. [address] [id number] Name: JERRICA CHISHOLM : 1955?? Visit: 05/05/2025 09:41?? Current Date: 05/05/2025 18:04 ?? Account: [id number]?? Inpatient Adult Discharge Instructions We would like to thank you for allowing us to assist you with your healthcare needs. The following includes patient education materials and information regarding your injury/illness. Our entire staffstrives to provide an excellent experience for our patients and their families. PLEASE ENSURE YOU FOLLOW-UP PER THE INSTRUCTIONS BELOW! ?? YOUR OPINION IS IMPORTANT TO US! Please complete the survey you may receive by mail or email. Your feedback will be used to make improvements to the healthcare experiences of our patients and their families. Surveys are administered by [employer] ?? If further treatment with your primary care physician or another doctor is recommended, it is important for you to keep the appointment. Call your primary care physician or return to the Emergency Department immediately if your condition worsens, fails to improve, or new symptoms develop. If you need to find a doctor, you can call [facility] [employer] for a referral at [phone] or toll free at [phone]) or log in to [email or web address].. ?? [facility], in keeping with [facility] guidance, no longer requires face masks for staff, patientsor visitors in most situations. Similiar to time spent indoors at other locations, there is the chance that you were exposed to repiratory viruses during your time with us (such as flu or COVID-19). If you develop symptoms concerning for a viral respiratory infection, please seek testing (and treatment if indicated) from your medical provider or home test kit. ?? You can view and manage your care through the patient portal or by using a health care kurt of your choosing. [employer] is a website that allows you to securely view your medical information including your hospital discharge summary, office visit summaries, medications and follow-up visits. You can also request appointments, renew medications, and request access to your medical information using a health care kurt of your choosing, or just ask a question. You are entitled to know the individuals who participated in your treatment. This information is available within your medical record and will be provided upon your request. You can enroll at [email or web address] or register d uring your next office visit. You have been discharged from [facility], Patient Care Unit: CARE??. If you have any questions regarding these instructions, including results of studies pending, afteryou leave, please call us and we will be happy to assist you 06/04. [facility] Nursing Unit Direct Phone Number, for 06/04 contact and results of studies pending CARE [address] [place] [id number] Your Care Team Attending Physician Simon Eastman MD?? Consulting Providers Simon Eastman MD?? Discharging Providers Simon Eastman MD Tests Performed Below is a partial list of the tests performed during your hospitalization. You may have had other tests and procedures not included in this list. Please discuss all test results with your provider. Basic Metabolic Panel CBC GLUCOSE POC Type and Screen Basic Metabolic Panel?? CBC?? Glucose POC?? Type and Screen?? Primary Care Provider Trish Carcamo MD, Corey? Advance Directive Health Care Proxy on File Yes - Health Care Proxy Discharge Vitals Temperature: 97.6 DegF Height: 167 cm Pulse Rate: 65 bpm Weight: 128.5 kg Respiratory Rate: 18 br/min Body Mass Index:??46.08 kg/m2??Critical Systolic Blood Pressure:??141 mm Hg??High Body surface area: 2.44 Diastolic Blood Pressure: 73 mm Hg ?? Oxygen Saturation: 98 % ?? Studies Pending All studies ordered during this hospital stay have been completed unless listed below. Please discuss all pending results with your provider listed above in these instructions. ?? No incomplete studies found?? What to do next Instructions From Your Doctor ?? Orders?? discharge after post procedure rest order complete, patient has ambulated and groin incision(s) arestable 30 mins post ambulation, ??05/05/25 17:16:00 EDT?? Discharge Medications JERRICA CHISHOLM :1955 Visit Date:05/05/2025 Medications: Please continue your medications until treatment is completed or stopped by your provider. Medications not listed below should be discontinued. Discuss any questions related to medications with your provider. What How Much When Instructions Next Dose Unchanged Albuterol (ProAir HFA 90 mcg/ inh inhalation aerosol with adapter) 2 puff(s) Inhalation 4 times a day Resume Unchanged apixaban (Eliquis 5 mg oral tablet) TAKE ONE TABLET BY MOUTH IN THE MORNING AND EVENING ?? Resume Unchanged Atorvastatin (Lipitor 40 mg oral tablet) 1 tab(s) Oral Daily in the morning 40 mg by mouth every other day in pm ?? Resume Unchanged Celecoxib (CeleBREX 200 mg oral capsule) 1 capsule Oral prn ?? Resume Unchanged Cetirizine (ZyrTEC 10 mg oral tablet) 1 tab(s) Oral Daily Resume Unchanged Cholecalciferol (High Potency Vitamin D3 25 mcg (1000 intl units) oral capsule) 1 capsule Oral Daily Resume Unchanged Cyanocobalamin (Vitamin B12) 1,000 Microgram Resume Unchanged empagliflozin (Jardiance) 25 Milligram Oral Daily in the morning Resume STOP Flecainide (flecainide 50 mg oral tablet) ?? STOP Unchanged Gabapentin (gabapentin 300 mg oral capsule) 1 capsule Oral Twice a day Resume Unchanged Lisinopril 10 Milligram Oral Daily Resume Unchanged Metoprolol (metoprolol 25 mg oral tablet) 0.5 tab(s) Oral Twice a day Resume Unchanged Montelukast 10 Milligram Oral Daily Resume Unchanged Polycarbophil (Fiber Lax 625 mg oral tablet) 1 tab(s) Oral Daily Resume Unchanged semaglutide (Ozempic (0.25 mg or 0.5 mg dose)) See instructions Resume Unchanged Tamsulosin (tamsulosin 0.4 mg oral capsule) TAKE ONE CAPSULE EVERY NIGHT AT BEDTIME ?? Resume Prescription Given During Visit No new medications prescribed at time of discharge.?? Laboratory Results Below is a partial list of the most recent Laboratory test results done prior to this discharge. You may have had other tests and procedures not included in this list. Please discuss all test resultswith your provider. Basic Metabolic Panel (05/05/2025) ???Sodium - 138 mmol/L???Potassium - 4.4 mmol/L???Chloride - 104 mmol/L???Bicarbonate Level - 23 mmol/L???Anion Gap - 11 mmol/L???Glucose Level - 127 mg/dL???BUN - 12 mg/dL???Creatinine-Blood - 0.71 mg/dL???Estimated GFR Creatinine - 100 ML/MIN/1.73 M2???Calcium - 9.4 mg/dL CBC (05/05/2025) ???WBC - 6.0 k/mm3???RBC - 5.60 m/mm3???Hgb - 15.6 Gm/dL???Hct - 48.3 %???MCV - 86.3 femtoliters???MCH - 27.9 pg???MCHC - 32.3 Gm/dL???Platelet Count - 149 k/mm3???RDW-SD - 47.5 femtoliters???MPV - 9.1 femtoliters???Nucleated RBC (Automated) - 0.0 #/100 WBC'S???Abs. NRBC - 0.0 k/mm3 GLUCOSE POC (05/05/2025) ???Glucose, POC - 110 mg/dL Type and Screen (05/05/2025) ???Blood Type - O Positive???Antibody Screen - Negative You will be contacted within 72 hours with your results. Allergies (NKA means No Known Allergies) ferrous sulfate Problems Active Problems??(7) Arthritis of knee, degenerative?? DM II (or NOS), uncontrolled?? HLD (hyperlipidemia)?? Hypertension?? Morbid obesity?? Severe obesity?? Sleep apnea- cpap 13 cm,[facility]?? Education Materials Below is the list of Educational Leaflet Providered with your Discharge Instructions. WebMD Ignite Patient Education - M-Patient Instructions?? WebMD Ignite Patient Education - M-Groin I Discharge Instructions?? Web[employer] Patient Education - Recovery After Procedural Sedation (Adult)?? WebMD Ignite Patient Education - Procedural Sedation?? WebMD Ignite Patient Education - Discharge Instructions for Catheter Ablation?? Valuables and Belongings I fully understand and agree that [facility] accepts no responsibility for all my personal property including clothing, toilet articles, radios, jewelry, dentures, hearing aids, rings, money, or any other property that is in my possession or is brought to me after admission. I understand certain valuables may be placed in a hospital safe for a short period of time. I understand that the hospital is not liable for loss or damage due to accident, fire, or other natural occurrence while said property is in the safe. I accept full responsibility for any personal property that I keep with me, and will not hold the hospital responsible in case of loss or disappearance. I acknowledge that i have been encouraged to send valuables and belongings home. ?? Date for Pt to Sign Valuables/Belongings: 05/05/25 10:28:00 ?? Valuables & Belongings ?? Clothes Electronic devices Jewelry Monetary Items Personal devices Miscellaneous Medications (Valuables) Valuables at Bedside Pants, Shirt, Shoes, Undergarments Cell phone ? Other: CPAP ? Valuables Sent Home ? Valuables Sent to Security ? Valuables Sent to Locker ? Other Discharge Information ? Pulmonary Rehab Status?? Pulmonary Rehab Discharge Status?? Respiratory Rate: 18 br/min ? Common Emergency Awareness Tips IS IT A STROKE? Act FAST and Check for these signs: FACE Does the face look uneven? ARM Does one arm drift down? SPEECH Does their speech sound strange? TIME Call 9-1-1 at any sign of stroke ?? Heart Attack Signs Chest discomfort: Most heart attacks involve discomfort in the center of the chest and lasts more than a few minutes, or goes away and comes back. It can feel like uncomfortable pressure, squeezing, fullness or pain. Discomfort in upper body: Symptoms can include pain or discomfort in one or both arms, back, neck, jaw or stomach. Shortness of breath: With or without discomfort. Other signs: Breaking out in a cold sweat, nausea, or lightheaded. Remember, MINUTES DO MATTER. If you experience any of these heart attack warning signs, call to get immediate medical attention! ?? Smoking can increase your chances of developing chronic health problems and can cause harmful effects to other family members in your house. If you smoke, you are strongly encouraged to quit. Please call [facility] [employer]) Link at [phone] or [phone] ([phone]) or log in to [email or web address] for referrals to smoking cessation programs. ?? 198 Suicide & Crisis Lifeline is available 06/04 if you or someone you know needs to find a reason to keep living. By calling 155 you'll be connected to a skilled, trained counselor at a crisis center in your area. INPATIENT DISCHARGE INSTRUCTIONS SIGNATURE PAGE KATHRINENIKHILBAYLEE Location:[facility] Registration Date and Time:05/05/2025 09:41 EDT Primary Care Physician: Trish Carcamo MD, Corey, Attending Physician: Raiza OLIVEIRA, Simon Zazueta, I JERRICA CHISHOLM, have received the above patient education materials/instructions and have verbalized understanding. If ambulance or transport services are being used I further acknowledge being given a choice of service. ?? If you need to contact me, please call me at this number: . Patient/Public Area Supervisor Name: Patient/Public Area Supervisor Signature: Relationship to Patient: Witness Name/Signature: Date: * Cristin Guadalupe RN: PERFORM, SIGN, VERIFY Event Display: Patient Education Handout Authored Date: [id number] * Cristin Guadalupe RN: PERFORM Event Display: Patient Education Leaflets Authored Date: [id number] M-Patient Instructions ?? 188 It is normal to have some bruising and soreness in your groin for a few days. You can put an ice pack on it (not heat) and try Tylenol. ?? A small hard lump beneath your groin incision is normal, but a hematoma (large, painful swelling caused by bleeding under the skin) is an emergency. If you have a hematoma or uncontrollable bleeding from the incision, hold pressure to your groin and call . ?? Call your primary doctor if the incision looks infected (pus, redness, drainage). ?? * Cristin Guadalupe RN: PERFORM Event Display: Patient Education Leaflets Authored Date: [id number] M-Groin I Discharge Instructions ?? 179 Groin Discharge Instructions No heavy lifting over 10 pounds (for example: gallon of milk) 1 week following the procedure; gradually increase normal activity over the next 5 days. Avoid straining/pushing when moving bowels You may feel like resting more after your procedure. Slowly start to do more each day. Rest when you feel it is needed. Make sure to look at your procedure site every day until it is completely healed. You may see bruising at the puncture site and that is common after the procedure. You may shower the day after your procedure. Remove the band aid before showering. Wash the area gently with soap and water. Leave open to air. Do not take tub baths, hot tubs, soaking of the puncture site or swimming for 1 week. Do not put any creams, powders or lotions on your puncture site You may resume sexual activity the day after your procedure; avoid bending the hip on ?? the side of the groin puncture excessively and any strenuous positions for 1 week. Call your doctor if your procedure site develops any of the following: ??? New onset severe pain ??? New onset lump or swelling ??? Bleeding that does not stop with lightpressure ? * Cristin Guadalupe RN: PERFORM Event Display: Patient Education Leaflets Authored Date: [id number] Recovery After Procedural Sedation (Adult) ?? [id number] Recovery After Procedural Sedation (Adult) You have been given medicine by vein to make you sleep during your procedure. This may have included both a pain medicine and sleeping medicine. You may have side effects, such as nausea, fatigue, orunsteadiness for up to 24 hours. You may also feel lightheaded. Some medical conditions, such as seizure disorders, spinal cord injuries, and some metabolic conditions, may change what your care needs are. If you have a medical condition, talk with your doctor about whether your care after the procedure might change. ?? Home care Follow these guidelines when you get home: ??? For the next 8 or more hours, ask a trusted adult to watch over you. This person should make sure your condition is not getting worse, watch for problems, and keep you safe. ??? Don't drink any alcohol??for the next 24 hours. ??? Don't drive, operate dangerous machinery, or make important business or personal decisions??during the next 24 hours. ??? Take extra care when walking and moving, You may be at a higher risk of falling. ??? Follow any instructions you were given for eating and drinking. ??? Be sure to follow all after-care directions. Note: Your doctor may tell you not to take any medicine by mouth for pain or sleep in the next 4 hours. These medicines may react with the medicines you were given in the hospital. This could cause amuch stronger response than usual. ?? Follow-up care Follow up with your doctor as advised. ?? When to contact your doctor Have someone contact your doctor or seek medical care right away if: ??? Your drowsiness gets worse. ??? Your weakness or dizziness gets worse. ??? You have repeated vomiting. ??? Your speech is slurred, and others can't understand you. ??? You have severe or ongoing pain from the procedure that's not eased by the pain medicine (if prescribed). ??? You have a fever. ??? You have a new rash. ?? Call 911 Have someone call 911 if: ??? You have trouble breathing. ??? You have trouble swallowing. ??? You have chest pain. ??? You lose consciousness or you can't be awakened. ?? Last Reviewed Date: 2023 00:00:00 ?? [phone] [employer]. All rights reserved. This information is not intended as a substitute for professional medical care. Always follow your healthcare professional's instructions. ?? Patient Care team information Care Team Personnel Name: Corey Canseco MD Position: [facility] Outreach Member Role: PCP Address: [address] [place] [address] Telecom: Name: Katja Choudhury RN Position: [facility] RN Member Role: Primary Care Nurse Name: Pearl Steele RN Position: [facility] MARK Nurse Member Role: Primary Care Nurse Name: Rikki Ramsay RN Position: [facility] FANI RN W/OE and Tasks Member Role: Primary Care Nurse Name: Jailyn Godinez RN Position: [facility] RN Member Role: Primary Care Nurse Care Team Related Persons Name: ALDAIR CHISHOLM Insurance Providers Guarantor name: [facility] Information #: 1 Payer: ROSS CRUZ Payer Identifier: NA Member Number: [id number] Group Number: [id number] Subscriber Identifier: [id number] Relationship to Subscriber: self Coverage Type: NA Coverage Verification Date: NA Telecom: NA Address: NA
--- NOTE | 2025-05-10 15:32 | MHC.OFFVIS ---
Vital Signs 05/10/25 15:35 Height 5 ft 7 in Weight 283 lb 15.286 oz BMI 44.5 BP 114/64 Blood Pressure Location Lt brachial Position Sitting Pulse 74 Pulse Source Pulse Oximeter Intake Visit Reasons: s/p back surg/ ablation in April Intake Note: s/p back surgery/ablation april Hogshead Opener Required: No Accompanied by: Self / Same As Patient Allergies iron Adverse Reaction (Severe, Verified 02/21/25 06:22) Rash ( from oral supplement) Medication List - Last Reconciled 05/10/25 by Sp Akhtar MD albuterol sulfate 90 mcg/actuation (Ventolin HFA) 2 puffs inhalation Q4-6H PRN apixaban (Eliquis) 5 mg PO BID Held on 02/22/25. Instructions: Resume on 02/23/25. Restart 02/23 atorvastatin 40 mg PO QAM blood sugar diagnostic (FreeStyle Lite Strips) As directed celecoxib 200 mg PO BID PRN cetirizine 10 mg PO QAM cholecalciferol (vitamin D3) 25 mcg PO QAM cyanocobalamin (vitamin B-12) (Vitamin B-12) 1,000 mcg PO QAM empagliflozin (Jardiance) 25 mg PO QAM gabapentin 300 mg PO BID lancets (Easy Touch Twist Lancets) As directed lisinopril 10 mg PO QAM methylcellulose (laxative) (Citrucel) 500 mg PO DAILY metoprolol tartrate 12.5 mg (1/2 x 25 mg) PO BID 90 days montelukast 10 mg PO BEDTIME semaglutide (Ozempic) 0.5 mg subcut TU tamsulosin 0.4 mg PO BEDTIME tramadol 50 mg PO BID PRN HPI Comments Details: 69-year-old gentleman here for follow-up. He has background history of obesity, paroxysmal atrial fibrillation and dyspnea on exertion. He underwent stress testing which showed equivocal changes of apical ischemia. He was complaining of dyspnea on exertion and we decided to do cardioversion 1st. He underwent cardioversion which was unsuccessful. He was loaded with amiodarone and we re-attempted the cardioversion which was successful. He is currently on 200 mg of amiodarone. He continues to be in sinus rhythm. He is saying since cardioversion he feels more energetic and has less dyspnea. Definitely has improved after cardioversion. He has strong family history of coronary disease and his father had CT at age 50. His nuclear perfusion imaging showed apical ischemia. He was sent for coronary CTA after discussion which showed mid LAD 50% lesion. On follow-up he was complaining of chest discomfort. After discussion was taken for diagnostic angiography which showed 30-40% mid LAD stenosis. He was referred to electrophysiology at [facility]. His amiodarone was stopping was started on flecainide. Subsequent to that he had bradycardia and his heart rate was in 50s and he was symptomatic. He called electrophysiology office and was advised to stop the flecainide. He has been taking metoprolol 25 mg twice a day. He has been keeping a log of his blood pressure and heart rates and has been stable. Denying any significant symptoms on follow-up other than fatigue. He has been drinking alcohol and mostly drinks because of significant arthritis involving his back and knees. 06/08/23: He has been doing fine on f/u. Denying any significant palpitations or dyspnea. He has some nonanginal chest discomfort. He is taking meds regularly. 04/18/2024: He returns for follow-up. He needs left shoulder surgery. No new symptoms. No chest discomfort shortness of breath. Occasionally gets palpitations. In sinus rhythm in the office currently. Taking Eliquis and metoprolol tartrate 25 mg twice a day. Blood pressure well controlled. 05/10/2025: Here for follow-up. He underwent ablation on Thursday by Dr. Eastman. He is saying there is some oozing and skin breakdown in the left side which his is taking care of who is a nurse. No hematoma at that site. He was on flecainide which was stopped after the ablation. He is taking metoprolol 12.5 mg twice a day. He is on semaglutide. [employer] mobile tracings were seen and it appears he has sinus rhythm with some premature ventricular complexes. [facility] Medical History (Updated 03/14/25 @ 13:45 by EZ Borrego) Family history of anesthesia complication Arthritis History of cardioversion Atrial fibrillation Asthma HTN (hypertension) Elevated cholesterol Diabetes Sciatica Sleep apnea Shoulder pain with history of repair of rotator cuff Surgical History History of total replacement of left shoulder joint H/O colonoscopy History of surgical removal of ganglion cyst Hx of rotator cuff surgery History of cardiac cath Hx of elbow surgery History of carpal tunnel release Hx of eye surgery Hx of tonsillectomy Hx of hernia repair Hx of knee surgery Family History Father Heart disease HTN (hypertension) Mother Atrial fibrillation Sister Diabetes Social History Household Members: Spouse Housing: House Are you a primary intensive care ambulance paramedic to a significant other at home: No Do you presently have visiting nurse or other home services: No Alcohol intake: current Alcohol intake frequency: holidays/special occasions only Patient Tobacco Use Status: Never used Tobacco e-Cigarette/Vaping Use: Never Used Substance Use Type: Marijuana service: No Current 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 status: retired Review of Systems Const Denies chills, Denies fatigue, Denies fever(s), Denies frequent falls, Denies weakness, Denies weight gain and Denies weight loss ENT Denies dizziness Card Denies chest pain, Denies leg edema, Denies lightheadedness, Denies palpitations, Denies dyspnea and Denies dyspnea on exertion Resp Denies cough, Denies dyspnea and Denies dyspnea on exertion GI Denies hematochezia Musc Denies abnormal gait, Denies muscle weakness, Denies numbness, Denies radiating pain into limb and Denies tingling Neuro Denies abnormal gait, Denies dizziness, Denies frequent falls, Denies numbness, Denies tingling and Denies weakness Endo Denies fatigue and Denies palpitations Physical Exam Vital Signs: Last Vital Signs Pulse 74 05/10/25 15:35 BP 114/64 05/10/25 15:35 BMI result Body Mass Index 44.5 GENERAL APPEARANCE: in no acute distress, pleasant. NECK: no carotid bruit, no jugular venous distention. SKIN: no suspicious lesions, warm and dry. HEART: no murmurs, irregular rate and rhythm. LUNGS: clear to auscultation bilaterally. ABDOMEN: soft, nontender. EXTREMITIES: no edema. PERIPHERAL PULSES: equal. NEUROLOGIC: No gross deficits, AAO X 3 Office Procedures EKG Details: Sinus rhythm 80 beats per minute, rightward axis, premature ventricular complexes, QTC 426 msec. [id number], Complete Assessment & Plan Assessment & Plan (1) Atrial fibrillation: Code(s): I48.91 - Unspecified atrial fibrillation Category: Medical Plan [age] year gentleman who is here for follow-up. He has background history of paroxysmal atrial fibrillation. He was previously treated with flecainide and metoprolol. He was seen by EP and underwent ablation last Thursday. His [employer] Mobile tracing is showing sinus rhythm with premature ventricular complexes. We repeated EKGs here due to irregularity in his rhythm and he has sinus rhythm with premature ventricular complexes. Advised him to increase the metoprolol to 25 mg twice a day. Continue anticoagulation as before. He will see us back in 6 months. Thank you for allowing me to participate in the care of your patient. Please feel free to contact me if you have any questions. Coding Level of Care Code Est Pt Level 4 (58017) Diagnoses Atrial fibrillation I48.91 CPT Codes EKG - CPT: 85813-[id number], Complete ([id number])
[2025-05-10 15:35] VITALS: BP 114/64; PULSE 74; BMI 44.5
--- OUTSIDE RECORDS SUMMARY | 2025-05-10 16:21 | XMS_ITS | Encounter Summary ---
Author Organization [employer] Address [address] [place] [address] 7 [place] [address] Care Team Providers Care Daycare Worker Name Role Phone Corey Canseco MD Primary Care Prov ider Encounter Details Date Type Department Care Team (Latest Contact Info) Description 09/26/2019 Abstract [facility] CONVERSIONS Dental, Provider, DDS Social History Tobacco Use Types Packs/Day Years Used Date Smoking Tobacco: Never Assessed Sex and Gender Information Value Date Recorded Sex Assigned at Male 07/14/2022 10:36 AM EDT Legal Sex Male 10:36 AM EDT Gender Identity Male 07/14/2022 10:36 AM EDT Sexual Orientation Straight 07/14/2022 10 :36 AM EDT documented as of this encounter Plan of Treatment Not on file documented as of this encounter Visit Diagnoses Not on filedocumented in this encounter Care Teams Daycare Worker Relationship Specialty Start Date End Date Corey Canseco MD [address] [place] [address] PCP - General Internal Medicine 09/09/19 documented as of this encounter
--- OUTSIDE RECORDS SUMMARY | 2025-05-10 16:21 | XMS_ITS | Encounter Summary ---
Author Organization [employer] Address [address] [facility] 7t [place] [address] Care Team Providers Care Mail Handler Equipment Operator Name Role Phone Corey Canseco MD Primary Care Prov ider Encounter Details Date Type Department Care Team ([facility] st Contact Info) Description 06/01/2024 Orders Only [facility] CHC MED & PEDS [address] [place] [address] Corey Canseco MD [address] [place] [address] Social History Tobacco Use Types Packs/Day Years [...] documented as of this encounter Care Teams Mail Handler Equipment Operator Relationship Specialty Start Date End Date Corey Canseco MD [address] [place] [address] PCP - General Internal Medicine 09/09/19 documented as of this encounter
--- OUTSIDE RECORDS SUMMARY | 2025-05-10 16:21 | XMS_ITS | Encounter Summary ---
Author Organization [employer] Address [address] [place] [address] 7 [place] [address] Care Team Providers Care Clothes Wringer Name Role Phone Corey Canseco MD Primary Care Prov ider Encounter Details Date Type Department Care Team (Latest Contact Info) Description 09/28/2020 Abstract [facility] CONVERSIONS Dental, Provider, DDS Social History Tobacco [...] on filedocumented in this encounter Care Teams Clothes Wringer Relationship Specialty Start Date End Date Corey Canseco MD [address] [place] [address] PCP - General Internal Medicine 09/09/19 documented as of this encounter
--- OUTSIDE RECORDS SUMMARY | 2025-05-10 16:21 | XMS_ITS | Encounter Summary ---
Author Organization [employer] Address [address] [facility] 7t [place] [address] Care Team Providers Care Day Camp Unit Leader Name Role Phone Corey Canseco MD Primary Care Prov ider Reason for Visit * Reason Onset Date Comments Med Refill 03/27/2025 Encounter Details Date Type Department Care Team (Late st Contact Info) Description 03/27/2025 Refill [facility] MED & PEDS [address] [place] [address] Corey Canseco MD [address] [place] [address] Social History Tobacco Use Types Packs/Day Years [...] documented as of this encounter Care Teams Day Camp Unit Leader Relationship Specialty Start Date End Date Corey Canseco MD [address] [place] [address] PCP - General Internal Medicine 09/09/19 documented as of this encounter
--- OUTSIDE RECORDS SUMMARY | 2025-05-10 16:21 | XMS_ITS | Encounter Summary ---
Author Organization [employer] Address [address] [facility] 7t [place] [address] Care Team Providers Care Supervisor Electric Motor Testing Name Role Phone Corey Canseco MD Primary Care Prov ider Reason for Visit * Reason Comments Med Refill Encounter Details Date Type Department Care Team ([facility] st Contact Info) Description 07/04/2024 Refill [facility] CHC MED & PEDS [address] [place] [address] Corey Canseco MD [address] [place] [address] Social History Tobacco Use Types Packs/Day Years [...] documented as of this encounter Care Teams Supervisor Electric Motor Testing Relationship Specialty Start Date End Date Corey Canseco MD [address] [place] [address] PCP - General Internal Medicine 09/09/19 documented as of this encounter
--- OUTSIDE RECORDS SUMMARY | 2025-05-10 16:21 | XMS_ITS | Encounter Summary ---
Author Organization [employer] Address [address] [place] [address] 7 [place] [address] Care Team Providers Care Academic Support Coordinator Name Role Phone Corey Canseco MD Primary Care Prov ider Reason for Referral * Imaging (Routine) - Closed Specialty Diagnoses / Procedures Referred By Contac t Referred To Contact Radiology Diagnoses Chronic left shoulder pain Procedures MR Shoulder w/o Contrast Left Corey Canseco MD [address] [place] [address] Phone: tel: fax: [address] Phone: tel: fax: Referral ID Status Reason Start Date Expiration Date Visits Re quested Visits Authorized [id number] Closed 12/02/2023 12/01/2024 1 1 Encounter Details Date Type Department Care Team (Late st Contact Info) Description 12/02/2023 Orders Only [facility] CHC MED & PEDS [address] [place] [address] Corey Canseco MD [address] [place] [address] Chronic left shoulder pain (Primary Dx) Social [...] as of this encounter Plan of Treatment Scheduled Orders Name Type Priority Associated Diagnoses [...] documented as of this encounter Care Teams Academic Support Coordinator Relationship Specialty Start Date End Date Corey Canseco MD [address] [place] [address] PCP - General Internal Medicine 09/09/19 documented as of this encounter
--- OUTSIDE RECORDS SUMMARY | 2025-05-10 16:21 | XMS_ITS | Encounter Summary ---
Author Organization [employer] Address [address] 7t [place] [address] Care Team Providers Care Customer Account Manager Name Role Phone Corey Canseco MD Primary Care Prov ider Encounter Details Date Type Department Care Team (Late st Contact Info) Description 12/25/[address] [facility] MEDICINE [address] [place] [address] ProviderМарина MD Social History Tobacco Use Types [...] on file documented as of this encounter Procedures Procedure [...] AM EDT Narrative 01/14/2024 4:15 PM EDT [place] [address] [address] Scan Report Signed Patient: Olive Tobias MR#: [id number] 7 : 1955 Acct:[id number] Age/Sex: 68 / M ADM Date: 01/14/24 Loc: HO.CT Attending Dr: Jon Meza MD Ordering Physician: Jon Meza MD Date of Service: 01/14/24 Procedure(s): CT shoulder LT wo IV con Accession Number(s): [id number] cc: Corey Canseco MD; Jon Meza MD [...] in OV> 01/14/24 1612 DD/ 0815 TD/TT: Health Navigator: NEREYDA Procedure Note Donotuseinterpreter, Image - 01/14/[address] [address] [address] Scan Report Signed Patient: Iona Tobias#: [id number] 7 : 6Acct:[id number] Age/Sex: 68 / MADM Date: 01/14/24 Loc: HO.CT Attending Dr: Jon Meza MD Ordering Physician: Jon Meza MD Date of Service: 01/14/24 Procedure(s): CT shoulder LT wo IV con Accession Number(s): [id number] cc: Corey Canseco MD; Jon Meza MD [...] in OV> 01/14/24 1612 DD/ 0815 TD/TT: Health Navigator: NEREYDA [facility] External Provider IMG CT PROCEDURES Final Result * Hm Colonoscopy (04/10/2023 12:03 PM EDT) Historical Provider HEALTH MAINTENANCE Final Result documented in this encounter Visit Diagnoses Not on filedocumented in this encounter Additional Health Concerns Assessment Noted Time PHQ-9 Depression Total Score: 6 12/24/19 24 9:28 AM EDT documented as of this encounter Care Teams Customer Account Manager Relationship Specialty Start Date End Date Corey Canseco MD [address] [place] [address] PCP - General Internal Medicine 09/09/19 documented as of this encounter
--- OUTSIDE RECORDS SUMMARY | 2025-05-10 16:22 | XMS_ITS | Encounter Summary ---
Author Organization [employer] Address [address] [facility] 7 [place] [address] Care Team Providers Care Railroad Worker Name Role Phone Corey Canseco MD Primary Care Prov ider Reason for Visit * Reason Comments Med Refill Encounter Details Date Type Department Care Team (Late st Contact Info) Description 04/05/2023 Refill [facility] CHC MED & PEDS [address] [place] [address] Corey Canseco MD [address] [place] [address] Mixed hyperlipidemia Social History Tobacco Use Types [...] documented as of this encounter Care Teams Railroad Worker Relationship Specialty Start Date End Date Corey Canseco MD [address] [place] [address] PCP - General Internal Medicine 09/09/19 documented as of this encounter
--- OUTSIDE RECORDS SUMMARY | 2025-05-10 16:22 | XMS_ITS | Encounter Summary ---
Author Organization [employer] Address [address] [facility] 7t [place] [address] Care Team Providers Care Grader Tender Name Role Phone Corey Canseco MD Primary Care Prov ider Encounter Details Date Type Department Care Team (Late st Contact Info) Description 11/11/2024 Orders Only [facility] [address] [place] [address] Provider, MD Марина Social History Tobacco Use [...] documented as of this encounter Care Teams Grader Tender Relationship Specialty Start Date End Date Corey Canseco MD [address] [place] [address] PCP - General Internal Medicine 09/09/19 documented as of this encounter
--- OUTSIDE RECORDS SUMMARY | 2025-05-10 16:22 | XMS_ITS | Encounter Summary ---
Author Organization [employer] Address [address] [facility] 7 [place] [address] Care Team Providers Care [employer] Financials Developer Name Role Phone Corey Canseco MD Primary Care Prov ider Reason for Visit * Reason Comments Med Refill Encounter Details Date Type Department Care Team (Late st Contact Info) Description 03/20/[address] [facility] CHC MED & PEDS [address] [place] [address] Corey Canseco MD [address] [place] [address] Social History Tobacco Use Types Packs/Day Years [...] documented as of this encounter Care Teams [employer] Developer Relationship Specialty Start Date End Date Corey Canseco MD [address] [place] [address] PCP - General Internal Medicine 09/09/19 documented as of this encounter
--- OUTSIDE RECORDS SUMMARY | 2025-05-10 16:22 | XMS_ITS | Clinical Summary ---
Author Organization [employer] Address [address] [place] [address] Care Team Providers Care Falsework Builder Name Role Phone Corey Canseco MD Primary Care Prov ider Allergies Active Allergy Reactions Criticality Noted Date Comments Ferrous Sulfate 10/15/2022 Iron 09/26/2019 Medications * This document contains information received from the source organization and may not represent a complete record from that organization. Easy Touch Lancets 33G/Twist miscIndications:T ype 2 diabetes mellitus without complications (CMS/HCC) TEST BLOOD SUGAR THREE TIMES DAILY 100 each 5 024 Active metoprolol tartrate (Lopressor) 25 MG tablet Take 1 tablet by mouth 2 times daily. Active atorvastatin (Lipitor) 40 MG tabletIndications :Mixed hyperlipidemia TAKE ONE TABLET EVERY MORNING 90 tablet 1 025 Active Jardiance 25 MGIndications:Typ e 2 diabetes mellitus without complication, without long-term current use of insulin (CMS/HCC) TAKE ONE TABLET EVERY MORNING 90 tablet 1 025 Active montelukast (Singulair) 10 MG tablet TAKE ONE TABLET EVERY EVENING 90 tablet 3 025 Active cyanocobalamin (Vitamin B-12) 1000 MCG tabletIndications :Vitamin B 12 deficiency TAKE ONE TABLET EVERY MORNING 90 tablet 1 025 Active cholecalciferol (Vitamin D-3) 25 MCG tabletIndications :Vitamin D deficiency TAKE ONE TABLET EVERY MORNING 90 tablet 1 025 Active Alcohol Swabs (Alcohol Prep) 70 % pads USE THREE DAILY 100 each 11 04/24/2 025 Active OneTouch Delica Lancets 33G misc 1 Lancet 2 times daily. 60 each 3 Active Lancet Devices (Autolet) lancing device 1 each by Other route 2 times daily. 1 each 025 2025 Active albuterol (Ventolin HFA) 108 (90 Base) MCG/ACT inhaler INHALE TWO PUFFS EVERY 4 TO 6 HOURS NEEDED 18 g 5 Active lisinopril 10 MG tabletIndications :Primary hypertension TAKE ONE TABLET EVERY MORNING 30 tablet 3 Active tamsulosin (Flomax) 0.4 MG 24 hr capsule TAKE ONE CAPSULE EVERY NIGHT AT BEDTIME 30 capsule Active Eliquis 5 MG tablet TAKE ONE TABLET IN THE MORNING AND EVENING 60 tablet Active gabapentin (Neurontin) 300 MG capsule Take 1 capsule (300 mg) by mouth 2 times daily. 180 capsule 025 2025 Active tobramycin-dexAME THasone (Tobradex) ophthalmic suspension INSERT ONE DROP IN THE AFFECTED EYE (S) EVERY 6 HOURS 5 mL 3 Active Diclofenac Sodium 1 % gel APPLY TWO GRAMS TO THE AFFECTED AREA(s) THREE TIMES DAILY 100 g Active Ozempic, 0.25 or 0.5 MG/DOSE, 2 MG/3ML solution pen-injectorIndic ations:Type 2 diabetes mellitus without complication, without long-term current use of insulin (CMS/HCC) INJECT 0.5mg's SUBCUTANEOUSLY ONCE PER WEEK 3 mL 2 Active cetirizine (ZyrTEC) 10 MG tablet TAKE ONE TABLET EVERY MORNING 90 tablet Active Blood Glucose Monitoring Suppl (Accu-Chek Guide) w/Device kitIndications:Ty pe 2 diabetes mellitus without complication, without long-term current use of insulin (CMS/HCC) 1 kit 3 times daily. 1 kit Active glucose blood (Accu-Chek Guide Test) test stripIndications: Type 2 diabetes mellitus without complication, without long-term current use of insulin (CMS/HCC) 1 each by Other route 3 times daily. 270 each 3 08/04/15 Active Accu-Chek Softclix Lancets lancetsIndication s:Type 2 diabetes mellitus without complication, without long-term current use of insulin ([facility]) Use as instructed 100 each 12 025 2025 Active celecoxib (CeleBREX) 200 MG capsuleIndication s:Pain TAKE ONE CAPSULE UP TO TWICE DAILY WITH FOOD NEEDED FOR PAIN 60 capsule 1 Active azelastine (Astelin) 0.1 % nasal spray spray 2 spray by intranasal route 2 times every day in each nostril 022 2024 Discontinued fluticasone (Flonase) 50 MCG/ACT nasal spray Administer 1-2 sprays into affected nostril(s) at bed time. 022 2024 Discontinued lidocaine-priloca ine (Emla) 2.5-2.5 % cream apply by topical route one to two times daily 2024 Discontinued pseudoephedrine ER (Sudafed-12 Hour) 120 MG 12 hr tablet TAKE ONE TABLET BY MOUTH EVERY TWELVE HOURS 30 tablet 023 2024 Discontinued acetaminophen (Tylenol) 325 MG tablet Take 2 tablets by mouth every 6 (six) hours if needed for fever, headaches or moderate pain. 2024 Discontinued oxyCODONE (Roxicodone) 10 MG immediate release tablet Take 1 tablet by mouth every 4 (four) hours if needed for moderate pain. 2024 Discontinued senna (Senokot) 8.6 MG tablet Take 2 tablets by mouth at bedtime. 024 2024 Discontinued cetirizine (ZyrTEC) 10 MG tablet TAKE ONE TABLET EVERY MORNING 90 tablet 2024 Discontinued Dulaglutide (Trulicity) 3 MG/0.5ML solution auto-injectorIndi cations:Type 2 diabetes mellitus without complication, without long-term current use of insulin ([facility]) Inject 3 mg under the skin 1 (one) time per week. 3 mL 3 025 2024 Discontinued glucose blood (FREESTYLE LITE) test stripIndications: Type 2 diabetes mellitus without complications ([facility]) TEST BLOOD SUGAR THREE TIMES DAILY 100 strip 025 2024 Discontinued glucose blood test strip Glucose monitoring 2 times a day 100 each 12 025 2024 Discontinued FREESTYLE LITE test strip 1 each by Other route Once per day. 90 each 3 025 2024 Discontinued Semaglutide,0.25 or 0.5MG/DOS, (Ozempic, 0.25 or 0.5 MG/DOSE,) 2 MG/3ML solution pen-injectorIndic ations:Type 2 diabetes mellitus without complication, without long-term current use of insulin ([facility]) Inject 0.5 mg under the skin 1 (one) time per week. 2 mL 2 025 2024 Discontinued celecoxib (CeleBREX) 200 MG capsuleIndication s:Pain TAKE ONE CAPSULE UP TO TWICE DAILY WITH FOOD NEEDED FOR PAIN 60 capsule 1 025 2024 Discontinued Active Problems Problem Noted [...] Mets >4 Blood work done today at [facility] Told to continue oral antyhypertensives the day [...] (03/07/2024 2:26 PM EDT): [facility] Assessment & Plan (11/30/2023 10:07 PM EDT): Will refer to gi for evalaution, refer constantly having mild stool incontinence, no bleeding Atrial fibrillation 02/24/2023 Assessment & Plan (04/21/2025 10:31 AM EDT): Followed by cardiology, he will undergo an ablation, will follow up recommendations RUMA (generalized anxiety disorder) 01/23/2023 Assessment & [...] in treatment. PLAN: 1. Follow up with [facility]: Recommended for follow-up: During AUD appt 2. [...] sobriety goal. PLAN: 1. Follow up with [facility]: Recommended for follow-up: 08/27/24 at 9am 2. 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 At this time lOive Tobias meets criteria for Visit Diagnoses: Problem List Items Addressed This Visit Other Alcohol abuse RUMA (generalized anxiety disorder) Patient ready to address current needs Yes Strengths include willing to continue to be engage with [facility] PLAN: 1. Follow up with [facility]: Recommended for follow-up: 07/02/23 at 9:30 am [...] in treatment. PLAN: 1. Follow up with [facility]: Recommended for follow-up: During AUD appt 2. Patient goal is become sober and reduce anxiety sxs. 3. Behavioral Recommendations a. Continue to use coping mechanisms b. Keeping his medical appts c. Continue to engage with IB for extra support. 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 Date Type Department Care Team Description 04/30/2025 Refill [facility] [address] [place] [address] Corey Canseco MD Pain 04/21/2025 8:45 AM EDT Office Visit [facility] [address] [place] [address] Corey Canseco MD Type 2 diabetes mellitus without complication, without long-term current use of insulin ([facility]) (Primary Dx); Atrial fibrillation, unspecified type ([facility]); Body mass index (BMI) 45.0-49.9, adult ([facility]); Primary hypertension 04/21/2025 Telephone [facility] [address] [place] [address] Corey Canseco MD 04/21/2025 Orders Only [facility] [address] [place] [address] Corey Canseco MD 04/21/2025 Telephone [facility] [address] [place] [address] Corey Canseco MD Med Refill 04/21/2025 Travel 04/21/2025 Refill [facility] [address] [place] [address] Corey Canseco MD 04/20/2025 Travel 04/15/2025 Refill [facility] [address] [place] [address] Corey Canseco MD Type 2 diabetes mellitus without complication, without long-term current use of insulin ([facility]) 03/27/2025 Refill [facility] [address] [place] [address] Corey Canseco MD 03/27/2025 Refill [facility] [address] [place] [address] Corey Canseco MD 03/27/2025 Travel 03/21/2025 8:30 AM EDT Telemedicine [facility] [address] [place] [address] Gabriel Rothman MD Alcohol dependence, binge pattern ([facility]) (Primary Dx) 03/21/2025 Travel 03/14/2025 Travel 03/09/2025 Orders Only [facility] [address] [place] [address] Corey Canseco MD 03/06/2025 Refill [facility] [address] [place] [address] Corey Canseco MD Pain 02/21/2025 Orders Only [facility] External Provider, [facility] 02/20/2025 Refill [facility] [address] [place] [address] Cliff Damon MD Primary hypertension from Last 3 Months Immunizations Immunization Administration Dates Next Due Influenza High-dose Quadriva [...] housing situation today? I have dino clementine 11/30/[address] you li [...] Sign Reading Time Taken Comments Blood Pressure 116/68 04/21/2025 8:55 AM EDT Pulse 65 04/21/2025 8:55 AM EDT Temperature 36.6 C (97.8 F) 04/21/2025 8:55 AM EDT Respiratory Rate 19 04/21/2025 8:55 AM EDT Oxygen Saturation 98% 04/21/2025 8:55 AM EDT Inhaled Oxygen Concentration - - Weight 130 kg (286 lb) 04/21/2025 8:55 AM EDT Height 170.2 cm (5' 7 ) 04/21/2025 8:55 AM EDT Body Mass Index 44.79 04/21/2025 8:55 AM EDT Plan of Treatment Health Maintenance Due Date Last Done Comments CT Colonography 1955 FIT DNA/Cologuard 1955 FIT 1955 FOBT 1955 Sigmoidoscopy 1955 Dental Oral Exam 10/17/2024 04/15/2024, 09/16/2023 Diabetes: Foot Exam 10/28/2024 10/28/2023, 10/28/2023, 10/28/2023, Additional history exists COVID-19 Vaccine ( season) 2024 06/10/2024, 06/11/2023, 07/07/2022, Additional history exists Dental Prophylaxis 05/03/2025 11/02/2024, 0 04/15/2024, 09/16/2023, Additional history exists Influenza Vaccine (#1) 2025 , 06/11/2023, 07/07/2022, Additional history exists Diabetes: Hemoglobin A1C 10/22/2025 025, 11/30/2024, 05/25/2024, Additional history exists Tobacco Screening 11/02/2025 11/02/2024 Dental X-Ray: Bitewings 11/03/2025 11/02/19 25, 04/15/2024, 09/16/2023, Additional history exists Eye Exam 11/10/2025 11/10/2024 Alcohol/Substance Use Screening 11/30/2025 11/30/2024 Depression Screening 11/30/2025 11/30/2024, 12/01/19 SDOH Screening 11/30/2025 11/30/2024 Lipid Panel 12/02/2025 12/02/2024, 10/15, 09/24/2022, Additional history exists Dental X-Ray: Full Mouth 09/17/2026 09/16/2023 DTaP/Tdap/Td Vaccines (2 - Td or Tdap) 03/25/2031 03/25/2021 Colonoscopy 04/10/2033 04/10/2023, 02/20/2022 Colorectal Cancer Screening 04/10/2033 Zoster Vaccines Completed 11/16/2019, 09/09/2019 Pneumococcal Vaccine: 50+ Years Completed 02/05/2022, 02/07/2016 Hepatitis C Screening Completed 09/24/2022, 022 RSV Patients and Patients Aged 60 years or older Completed 06/11/2023 HIB Vaccines Aged Out No longer eligi [...] patient's age to complete this topic Meningococcal B Vaccine Aged Out No l onger eligible based on patient's age to complete [...] Name Priority Date/Time Associated Diagnosis Comments XR LUMBAR SPINE COMPLETE 4+ VIEWS Routine 04/24/2025 12:25 PM EDT POCT GLUCOSE Routine 04/21/2025 10:27 AM EDT Type 2 diabetes mellitus without complication, without long-term current use of insulin (CMS/HCC) POCT GLYCATED HEMOGLOBIN, TOTAL Routine 04/21/2025 10:26 AM EDT Type 2 diabetes mellitus without complication, without long-term current use of insulin (CMS/HCC) FL GUIDANCE IN OR Routine 02/21/2025 7:4 0 AM EDT LIPID PANEL, STANDARD Routine 12/02/2024 10:11 AM EDT Type 2 diabetes mellitus without complication, without long-term current use of insulin (CMS/HCC) HM DIABETES EYE EXAM Routine 11/10/2024 9:37 AM EST PROPHYLAXIS - ADULT Routine 11/02/2024 9 :00 AM EST BITEWINGS - 4 RADIOGRAPHIC IMAGES Routine 11/02/2024 9:00 AM EST PERIODIC ORAL EVALUATION - ESTABLISHED PATIENT Routine 04/15/2024 10:00 AM EDT INTRAORAL - COMPLETE SERIES OF RADIOGRAPHIC IMAGES Routine 09/16/2023 9:00 AM EST HM COLONOSCOPY Routine 04/10/2023 12:03 PM EDT HEPATITIS C AB W/REFL TO HCV RNA, QN, PCR Routine 09/24/2022 10:33 AM EST from Last 3 Months or Most Recently Relevant to Health Maintenance Results * XR Lumbar Spine Complete 4+ Views (04/24/2025 12:25 PM EDT) Anatomical Region Laterality Modality Spine, L-spine Radiographic Kristi ging 04/24/2025 12:2 5 PM EDT Narrative 04/24/2025 2:42 PM EDT [facility] [address] [place] [address] XRay Report Signed Patient: Olive Tobias MR#: [id number] 7 : 1955 Acct:[id number] Age/Sex: 69 / M ADM Date: 04/24/25 Loc: HO.HOSX Attending Dr: Bennie HUI Ordering Physician: Bennie Morales Date of Service: 04/24/25 Procedure(s): XR lumbar spine 4V min Accession Number(s): [id number] cc: Corey Canseco MD; Bennie Morales EXAMINATION: X-ray lumbar spine CLINICAL INFORMATION: Low back pain. TECHNIQUE: AP and lateral views. Lateral views in neutral flexion and extension position.. COMPARISON: December 20, 2024. FINDINGS: Status post transpedicle screws placement at L4 and L5 bilaterally. Intervertebral disc height at L4-5. No gross motion at L4-5 during flexion and or extension position. There is a 2 mm retrolisthesis during extension position which reduces in neutral and flexion position at L3-4. Multilevel marginal osteophyte formation and endplate sclerosis throughout the axial skeleton. S-shaped curvature of the thoracolumbar spine. No lytic or blastic lesions. Vascular complications, aorta. XR/XR lumbar spine 4V min IMPRESSION: Status post posterior fusion L4-5 and intervertebral disc spacer placement/arthrodesis at L4-5. Probable instability at L3-4. Atherosclerosis disease, aorta. Multilevel thoracolumbar spondylosis. Electronically signed by: Bryon Becerra MD 04/24/2025 02:40 PM EDT Dictated By: Bryon Reis MD Signed By: <Electronically signed by Bryon Sabillon MD in OV> 04/24/25 1440 DD/ 1225 TD/TT: 04/24/25 1329 Collections Agent: Procedure Note Donotuseinterpreter, Image - 04/24/2025 [facility] [address] [place] [address] Drive [address] [place] [address] XRay Report Signed Patient: Iona Tobias#: [id number] 7 : 1955cct:[id number] Age/Sex: 69 / MADM Date: 04/24/25 Loc: HOYINGX Attending Dr: Bennie HUI Ordering Physician: Bennie Morales Date of Service: 04/24/25 Procedure(s): XR lumbar spine 4V min Accession Number(s): [id number] cc: Corey Canseco MD; Bennie Morales EXAMINATION: X-ray lumbar spine CLINICAL INFORMATION: Low back pain. TECHNIQUE: AP and lateral views. Lateral views in neutral flexion and extension position.. COMPARISON: December 20, 2024. FINDINGS: Status post transpedicle screws placement at L4 and L5 bilaterally. Intervertebral disc height at L4-5. No gross motion at L4-5 during flexion and or extension position. There is a 2 mm retrolisthesis during extension position which reduces in neutral and flexion position at L3-4. Multilevel marginal osteophyte formation and endplate sclerosis throughout the axial skeleton. S-shaped curvature of the thoracolumbar spine. No lytic or blastic lesions. Vascular complications, aorta. XR/XR lumbar spine 4V min IMPRESSION: Status post posterior fusion L4-5 and intervertebral disc spacer placement/arthrodesis at L4-5. Probable instability at L3-4. Atherosclerosis disease, aorta. Multilevel thoracolumbar spondylosis. Electronically signed by: Bryon Becerra MD 04/24/2025 02:40 PM EDT Dictated By: Bryon Reis MD Signed By: <Electronically signed by Bryon Sabillon MDin OV> 04/24/25 1440 DD/ 1225 TD/TT: 04/24/25 1329 Collections Agent: [facility] External Provider IMG XR PROCEDURES Final Result * POCT Glucose (04/21/2025 10:27 AM EDT) Glucose Blood, POC 158 60 - 200 mg/dL QC Media Lot # [id number] Lot# Expiration Date 183 Comment:random Blood Capillary blood specimen / Unknown 04/21/2025 10:27 AM EDT Corey Carcamo MD POINT OF CARE TEST ENTER/EDIT ORDERABLES Final Result * (ABNORMAL) POCT HGB A1C (04/21/2025 10:26 AM EDT) Hemoglobin A1C 6.6(A) 4.0 - 5.7 % QC Media Lot # [id number] Lot# Expiration Date Blood 04/21/2025 10:2 6 AM EDT Corey Carcamo MD POINT OF CARE TEST ENTER/EDIT ORDERABLES Final Result * FL Guidance in OR (02/21/2025 7:40 AM EDT) Anatomical Region Laterality Modality X-Ray Angiograph y 02/21/2025 7:40 AM EDT Narrative 02/21/2025 1:59 PM EDT [place] [address] Fluoroscopy Report Signed Patient: Olive Tobias MR#: [id number] 7 : 1955 Acct:[id number] Age/Sex: 69 / M ADM Date: 02/21/25 Loc: .S3 378-[address]: Isaias Santoyo MD, PhD Ordering Physician: Isaias Santoyo MD, PhD Date of Service: 02/21/25 Procedure(s): FL guidance in OR Accession Number(s): [id number] cc: Corey Canseco MD; Isaias Santoyo MD, PhD EXAMINATION: FL GUIDANCE ONLY HISTORY: L4-5 OLIF COMPARISON: Correlation is made with plain films of the lumbar spine dated 12/20/2024. TECHNIQUE: Fluoroscopy time: 1 minute, 32.8 seconds. Cumulative Dose: 89.143 mGy. DAP: 27.27 mGym2 Images: 7. FINDINGS: Images demonstrate posterior fusion of L4 and L5 with pedicle screws, spinal stabilization rods, and an intervertebral spacer. FL/FL guidance in OR IMPRESSION: Fluoroscopy during procedure. Please see procedure report for additional information. Electronically signed by: Blaze Brandt MD 02/21/2025 01:57 PM EDT RP Dictated By: Blaze Brandt MD Signed By: <Electronically signed by Blaze Brandt MD in OV> 02/21/25 1357 DD/ 0740 TD/TT: 02/21/25 1008 Collections Agent: Procedure Note Donotuseinterpreter, Image - 02/21/[address] [address] Fluoroscopy Report Signed Patient: Iona Tobias#: [id number] 7 : 1955cct:[id number] Age/Sex: 69 / MADM Date: 02/21/25 Loc: HO.S3 378-[address]: Isaias Santoyo MD, PhD Ordering Physician: Isaias Santoyo MD, PhD Date of Service: 02/21/25 Procedure(s): FL guidance in OR Accession Number(s): [id number] cc: Corey Canseco MD; Isaias Santoyo MD, PhD EXAMINATION: FL GUIDANCE ONLY HISTORY: L4-5 OLIF COMPARISON: Correlation is made with plain films of the lumbar spine dated 12/20/2024. TECHNIQUE: Fluoroscopy time: 1 minute, 32.8 seconds. Cumulative Dose: 89.143 mGy. DAP: 27.27 mGym2 Images: 7. FINDINGS: Images demonstrate posterior fusion of L4 and L5 with pedicle screws, spinal stabilization rods, and an intervertebral spacer. FL/FL guidance in OR IMPRESSION: Fluoroscopy during procedure. Please see procedure report for additional information. Electronically signed by: Blaze Brandt MD 02/21/2025 01:57 PM EDT RP Dictated By: Blaze Brandt MD Signed By: <Electronically signed by Blaze Brandt MD in OV> 02/21/25 1357 DD/ 0740 TD/TT: 02/21/25 1008 Collections Agent: [facility] External Provider IMG IR PROCEDURES Final Result * (ABNORMAL) Lipid Panel, Standard (12/02/2024 10:11 AM EDT) Triglycerides 114 <150 mg/dL [facility] Comment:Desirable Triglyceri de: less than 150 mg/dLBorderline High Triglyceride 150-199 mg/dLHigh Triglyceride: 200-499 mg/dLVery High Triglyceride: greater than or equal to 5OO mg/dL Cholesterol 119 <200 mg/dL [facility] Comment:Desirable Cholestero l: less than 200 mg/dLBorderline High Cholesterol: 200-239 mg/dLHigh Cholesterol: greater than 239 mg/dL LDL Cholesterol Calculated 69 <100 mg/dL [facility] Comment:Desirable LDL: less than 100 mg/dLNear Optimal/Above Optimal LDL: 110- 129 mg/dLBorderline High LDL: 130-159 mg/dLHigh LDL: 160-189 mg/dLVery High LDL: greater than or equal to 190 mg/dL HDL Cholesterol 28(L) >40 mg/dL [facility] Comment:Desirable HDL: great er than 40 mg/dL Note: This HDL assay may give artificially low results in patients with liver disease. Blood Venous blood specimen / Unknown 12/02/2024 10:11 AM EDT 12/02/2024 2:05 PM EDT Corey Carcamo MD LAB BLOOD ORDERABL ES Final Result [facility] [address], [place] [id number] [phone] * Diabetes Eye Exam (11/10/2024 9:37 AM EST) Historical Provider HEALTH MAINTENANCE Final Result * Colonoscopy (04/10/2023 12:03 PM EDT) Historical Provider HEALTH MAINTENANCE Final Result * Hepatitis C Antibody with Reflex to HCV, RNA, Quantitative, Real-Time PCR (09/24/2022 10:33 AM EST) Hepatitis C Antibody NON-REACT MARK NON-REACT MARK [employer] [place] Kopo Kopo Index <0.02 <1.00 Jun Group Comment: HCV antibody was non-reactive. There is no laboratory evidence of HCV infection. In most cases, no further action is required. However, if recent HCV exposure is suspected, a test for HCV RNA (test code 76475) is suggested. For additional information please refer to http://education.[employer]/faq/JOY66c5 (This link is being provided for informational/ educational purposes only.) 09/24/2022 10:3 3 AM EST 09/24/2022 10:33 AM EST Narrative [facility] - 09/24/2022 9:25 PM EST FASTING:NO FASTING: NO Corey Carcamo MD LAB BLOOD ORDERABL ES Final Result [facility] [address], [place] [address] [employer] [place] [employer] [address] [facility], ([address]) [place] [address] from Last 3 Months or Most Recently Relevant to Health Maintenance Insurance [facility] MEDICARE REPLACEMENT DENTAL - [facility] Care Teams Falsework Builder Relationship Specialty Start Date End Date Corey Canseco MD [address] [place] [address] PCP - General Internal Medicine 09/09/19
--- OUTSIDE RECORDS SUMMARY | 2025-05-10 16:22 | XMS_ITS | Encounter Summary ---
Author Organization [employer] Address [address] [facility] 7[address] [place] [address] Care Team Providers Care Supervisor Sign Shop Name Role Phone Corey Canseco MD Primary Care Prov ider Encounter Details Date Type Department Care Team ([facility] st Contact Info) Description 04/21/2025 Orders Only [facility] CHC MED & PEDS [address] [place] [address] Corey Canseco MD [address] [place] [address] Social History Tobacco Use Types Packs/Day Years [...] 4+ VIEWS Routine 04/24/2025 12:25 PM EDT documented in this encounter Results * XR Lumbar Spine Complete 4+ Views (04/24/2025 12:25 PM EDT) Anatomical Region Laterality Modality Spine, L-spine Radiographic Kristi ging 04/24/2025 12:2 5 PM EDT Narrative 04/24/2025 2:42 PM EDT [facility] [address] [place] [address] XRay Report Signed Patient: Olive Tobias MR#: [id number] 7 : 1955 Acct:[id number] Age/Sex: 69 / M ADM Date: 04/24/25 Loc: HO.HOSX Attending Dr: Bennie HUI Ordering Physician: Bennie Morales Date of Service: 04/24/25 Procedure(s): XR lumbar spine 4V min Accession Number(s): [id number] cc: Corey Canseco MD; Bennie Morales EXAMINATION: [...] Bryon Becerra MD 04/24/2025 02:40 PM EDT RP Dictated By: Bryon Reis MD Signed By: <Electronically signed by Bryon Sabillon MD in OV> 04/24/25 1440 DD/ 1225 TD/TT: 04/24/25 1329 Flame Anne[employer] Machine Setter: Procedure Note Donotuseinterpreter, Image - 04/24/2025 [facility] [address] [place] [address] Drive [address] [place] [id number] XRay Report Signed Patient: Iona Tobias#: [id number] 7 : 6Acct:[id number] Age/Sex: 69 / MADM Date: 04/24/25 Loc: HO.HOSX Attending Dr: Bennie HUI Ordering Physician: Bennie Morales Date of Service: 04/24/25 Procedure(s): XR lumbar spine 4V min Accession Number(s): [id number] cc: Corey Canseco MD; Bennie Morales EXAMINATION: [...] 04/24/25 1440 DD/ 1225 TD/TT: 04/24/25 1329 Flame Anne[employer] Machine Setter: [facility] External Provider IMG XR PROCEDURES Final Result documented in this encounter Visit Diagnoses Not on filedocumented in this encounter Additional Health Concerns Assessment Noted Time PHQ-9 Depression Total Score: 0 12/01/19 25 9:07 AM EDT documented as of this encounter Care Teams Supervisor Sign Shop Relationship Specialty Start Date End Date Corey Canseco MD [address] [place] [id number] PCP - General Internal Medicine 09/09/19 documented as of this encounter
--- OUTSIDE RECORDS SUMMARY | 2025-05-10 16:22 | XMS_ITS | Encounter Summary ---
Author Organization [employer] Address [address] [facility] [address] [place] [address] Care Team Providers Care Organizational Research Consultant Name Role Phone Corey Canseco MD Primary Care Prov ider Encounter Details Date Type Department Care Team ([facility] st Contact Info) Description 09/30/2023 Abstract [facility] [address] [place] [address] Maryana Penn, DDS [address] [place] [address] Social History Tobacco Use Types Packs/Day Years [...] documented as of this encounter Care Teams Organizational Research Consultant Relationship Specialty Start Date End Date Corey Canseco MD [address] [place] [id number] PCP - General Internal Medicine 09/09/19 documented as of this encounter
== END 2025-05-10 16:15 | disposition home or self-care (01) ==
LOC: HO.HCS 15:04
PROVIDERS: PCP Internal Medicine; Visit Provider Internal Medicine Cardiovascular Disease
DX: I48.91 Unspecified atrial fibrillation (principal)
CPT/HCPCS: 93010; 99214

== ENCOUNTER → 2025-05-10 15:04 | Outpatient (BNVA) | payer MEDICARE, SELFPAY | PROVIDERS: PCP Internal Medicine; Visit Provider Internal Medicine Cardiovascular Disease | DX: I48.0 Paroxysmal atrial fibrillation (principal); I49.3 Ventricular premature depolarization; I49.1 Atrial premature depolarization | CPT/HCPCS: 93005; 99212 ==

== ENCOUNTER 2025-06-28 10:37 | Outpatient (AMB) | payer MEDICARE, SELFPAY ==
--- NOTE | 2025-06-28 11:46 | AM.OFFVISNUR ---
Intake Visit Reasons: ekg pt not feeling well. Allergies iron Adverse Reaction (Severe, Verified 06/28/25 11:45) Rash ( from oral supplement) Nursing Note Pt came in today for a ekg. as his cardio mobile was suggesting he was in a fib. Pt dosen't feel good. He is very tired, sob with exertion. The pt was away last week in [place] and he started not feeling well. His ekg showed Afib, his hear rate went up to 176 down to 90 then up again and bounce aroung. I talked with DR Akhtar and he said to take hime down to the ER [facility]. So I did. Coding
--- OUTSIDE RECORDS SUMMARY | 2025-06-28 12:41 | XMS_ITS | Encounter Summary ---
Author Organization [employer] Address [address] [facility] 7t [place] [address] Care Team Providers Care Golf Course Patroller Name Role Phone Corey Canseco MD Primary Care Prov ider Encounter Details Date Type Department Care Team ([facility] st Contact Info) Description 06/01/2024 Orders Only [facility] CHC MED & PEDS [address] [place] [address] Corey Canseco MD [address] [place] [address] Social History Tobacco Use Types Packs/Day Years [...] documented as of this encounter Care Teams Golf Course Patroller Relationship Specialty Start Date End Date Corey Canseco MD [address] [place] [address] PCP - General Internal Medicine 09/09/19 documented as of this encounter
--- OUTSIDE RECORDS SUMMARY | 2025-06-28 12:41 | XMS_ITS | Encounter Summary ---
Author Organization [employer] Address [address] [place] [address] 7 [place] [address] Care Team Providers Care Mechanical Design Engineer Name Role Phone Corey Canseco MD Primary Care Prov ider Encounter Details Date Type Department Care Team (Latest Contact Info) Description 09/26/2019 Abstract [facility] CONVERSIONS Dental, Provider, DDS Social History [...] on filedocumented in this encounter Care Teams Mechanical Design Engineer Relationship Specialty Start Date End Date Corey Canseco MD [address] [place] [address] PCP - General Internal Medicine 09/09/19 documented as of this encounter
--- OUTSIDE RECORDS SUMMARY | 2025-06-28 12:41 | XMS_ITS | Encounter Summary ---
Author Organization [employer] Address [address] [facility] [address] [place] [address] Care Team Providers Care Electroencephalogram Technologist Name Role Phone Corey Cansceo MD Primary Care Prov ider Encounter Details Date Type Department Care Team (Late st Contact Info) Description 06/28/2025 Orders Only GENERIC EXTERNAL DATA DEPARTMENT Provider, Generic External Data Social History Tobacco Use Types Packs/Day Years [...] Answer Date Recorded Patient Health Questionnaire-9 Score 3 05/29/2025 Patient Health Questionnaire-9 Score 3 05/29/2025 Last PHQ-9: Questionnaire Data Not on file 0 05/29/2025 Housing Stability Answer Date Recorded What is [...] Date Recorded Patient Health Questionnaire-2 Score 1 05/29/2025 Internet Access Answer Date Recorded Internet Access [...] Procedure Name Priority Date/Time Associated Diagnosis Comments HIGH SENSITIVITY TROPONIN I Routine 06/28/2025 11:53 AM EDT CBC WITH AUTO DIFFERENTIAL Routine 06/28/2025 11:53 AM EDT MAGNESIUM Routine 06/28/2025 11:53 AM EDT COMPREHENSIVE METABOLIC PANEL Routine 06/28/2025 11:53 AM EDT documented in this encounter Results * High Sensitivity Troponin I (06/28/2025 11:53 AM EDT) TROPONIN I HIGH SENSITIVITY <2.7 <3.5 - 35.0 ng/L [facility] Comment:The [place] high sens itivity Troponin-I results should beused in conjunction with other diagnostic information suchas ECG, clinical observations and information, and patientsymptoms to aid in the diagnosis of SC. 06/28/2025 11:5 3 AM EDT 06/28/2025 11:56 AM EDT us Generic External Data Provider LAB BLOOD ORDERAB LES Final Result [facility] [address] [place] [address] [phone] * Magnesium (06/28/2025 11:53 AM EDT) Magnesium 2.0 1.6 - 2.6 mg/dL [facility] 06/28/2025 11:5 3 AM EDT 06/28/2025 11:56 AM EDT us Generic External Data Provider LAB BLOOD ORDERAB LES Final Result Performing Organization Address [facility]/ZIP Co de Phone Number [facility] [address] [place] [address] [phone] * (ABNORMAL) Comprehensive Metabolic Panel (06/28/2025 11:53 AM EDT) Pathologist [facility] Sodium 139 135 - 145 mmol/L [facility] Potassium 4.4 3.3 - 5.1 mmol/L [facility] Chloride 108 96 - 108 mmol/L [facility] Carbon Dioxide 25 22 - 29 mmol/L [facility] Anion Gap 10(L) 12 - 20 [facility] Urea Nitrogen (BUN) 14 9 - 16 mg/dL [facility] Creatinine, Serum 0.83 0.5 - 1.4 mg/dL [facility] Creatinine Clr Calc Pharmacy 107.4 [facility] Comment:eGFR (calculated fro m the MDRD study equation) and eCrCl(calculated from the Cockcroft-Gault equation) are based ondifferent parameters and may not yield comparable results.If eCrCl result is absurd, please check patient'sheight/weight. Estimated Glomerular Filt Rate >60 [facility] Comment:Chronic Kidney Disea se: Estimated GFR < 60 mL/min/[id number] Kidney Disease: Estimated GFR < 15 mL/min/1.73m2 Glucose 154(H) 60 - 115 mg/dL [facility] Calcium 9.1 8.4 - 10.2 mg/dL [facility] Bilirubin, Total 0.5 0.0 - 1.0 mg/dL [facility] Aspartate Amino Transferase 30 5 - 37 U/L [facility] Alanine Aminotransferase 31 0 - 40 U/L [facility] Total Protein 7.2 6.5 - 8.0 g/dL [facility] Albumin Level 4.1 3.5 - 5.0 g/dL [facility] Alkaline Phosphatase 95 39 - 117 U/L [facility] 06/28/2025 11:5 3 AM EDT 06/28/2025 11:56 AM EDT us Generic External Data Provider LAB BLOOD ORDERAB LES Final Result [facility] [address] [place] [address] [phone] * (ABNORMAL) CBC auto differential (06/28/2025 11:53 AM EDT) White Blood Count 6.0 4.8 - 10.8 X10*3/uL [facility] Red Blood Count 5.40 4.60 - 5.80 X10*6/uL [facility] Hemoglobin 15.4 14.0 - 18.0 g/dl [facility] Hematocrit 47.5 42.0 - 52.0 % [facility] Mean Corpuscular Volume 88.0 80.0 - 98.0 fL [facility] Mean Corpuscular Hemoglobin 28.5 27.0 - 33.0 pg [facility] Mean Corpuscular HGB Conc 32.4 31.0 - 36.0 g/dl [facility] Red Cell Distribution Width 14.9 11.0 - 16.0 % [facility] Platelet Count 155(L) 160 - 400 X10*3/uL [facility] Mean Platelet Volume 8.9(L) 9.4 - 12.4 fL [facility] Neutrophils Percent Auto 71.8 45 - 73 % [facility] Imm Gran Pct Auto 0.5(H) 0.0 - 0.4 % [facility] Lymphocytes Percent Auto 16.8(L) 20 - 40 % [facility] Monocytes Percent Auto 8.6 2 - 11 % [facility] Eosinophils Percent Auto 2.0 0 - 4 % [facility] Basophils Percent Auto 0.3 0 - 2 % [facility] NRBC Pct Auto 0.0 0.0 - 0.2 /100WBC [facility] Neutrophils Absolute Auto 4.3 2.0 - 8.3 x10*3/uL [facility] Imm Gran Abs Auto 0.03 0.00 - 0.03 X10*3/uL [facility] Lymphocytes Absolute Auto 1.0(L) 1.2 - 4.9 X10*3/uL [facility] Monocytes Absolute Auto 0.5 0.1 - 1.2 X10*3/uL [facility] Eosinophils Absolute Auto 0.1 0.0 - 0.4 X10*3/uL [facility] Basophils Absolute Auto 0.0 0.0 - 0.2 X10*3/uL [facility] NRBC Abs Auto 0.000 0.0 - 0.012 X10*3/uL [facility] 06/28/2025 11:5 3 AM EDT 06/28/2025 11:56 AM EDT us Generic External Data Provider LAB BLOOD ORDERAB LES Final Result Performing Organization Address City/State/[facility] Co de Phone Number [facility] [address] [place] [phone] [phone] documented in this encounter Visit Diagnoses Not on filedocumented in this encounter Additional Health Concerns Assessment Noted Time PHQ-9 Depression Total Score: 3 05/29/20 25 9:22 AM EDT documented as of this encounter Care Teams Electroencephalogram Technologist Relationship Specialty Start Date End Date Corey Canseco MD [address] [place] [phone] PCP - General Internal Medicine 09/09/19 documented as of this encounter
--- OUTSIDE RECORDS SUMMARY | 2025-06-28 12:41 | XMS_ITS | Encounter Summary ---
Author Organization [employer] Address [address] [facility] 7 [place] [address] Care Team Providers Care Special Education Itinerant Teacher Name Role Phone Corey Canseco MD Primary Care Prov ider Reason for Visit * Reason Comments Med Refill Encounter Details Date Type Department Care Team (Late st Contact Info) Description 04/05/[address] [facility] CHC MED & PEDS [address] [place] [address] Corey Canseco MD [address] [place] [address] Mixed hyperlipidemia Social History Tobacco Use Types [...] documented as of this encounter Care Teams Special Education Itinerant Teacher Relationship Specialty Start Date End Date Corey Canseco MD [address] [place] [phone] PCP - General Internal Medicine 09/09/19 documented as of this encounter
--- OUTSIDE RECORDS SUMMARY | 2025-06-28 12:41 | XMS_ITS | Encounter Summary ---
Author Organization [employer] Address [address] [place] [address] 7 [place] [address] Care Team Providers Care Diesel Motor Mechanic Name Role Phone Corey Canseco MD [...] on filedocumented in this encounter Care Teams Diesel Motor Mechanic Relationship Specialty Start Date End Date Corey Canseco MD [address] [place] [address] PCP - General Internal Medicine 09/09/19 documented as of this encounter
--- OUTSIDE RECORDS SUMMARY | 2025-06-28 12:41 | XMS_ITS | Encounter Summary ---
Author Organization [employer] Address [address] [facility] [address] 7[address] [place] [address] Care Team Providers Care Manager Part Name Role Phone Corey Canseco MD Primary Care Prov ider Encounter Details Date Type Department Care Team ([facility] st Contact Info) Description 09/30/2023 Abstract [facility] ADULT DENTAL [address] [place] [address] Maryana Penn, DDS [address] [place] [address] Social History Tobacco Use Types Packs/Day Years [...] documented as of this encounter Care Teams Manager Part Relationship Specialty Start Date End Date Corey Canseco MD [address] [place] [phone] PCP - General Internal Medicine 09/09/19 documented as of this encounter
--- OUTSIDE RECORDS SUMMARY | 2025-06-28 12:41 | XMS_ITS | Encounter Summary ---
Author Organization [employer] Address 75 [facility] 7t [place] [address] Care Team Providers Care Die Finisher Forging Name Role Phone Corey Canseco MD Primary Care Prov ider Reason for Visit * Reason Onset Date Comments Med Refill 03/27/2025 Encounter Details Date Type Department Care Team (Late st Contact Info) Description 03/27/2025 Refill [facility] MED & PEDS [address] [place] [address] Corey Canseco MD [address] [place] [address] Social History Tobacco Use Types Packs/Day Years [...] as of this encounter Care Teams Die Finisher Forging Relationship Specialty Start Date End Date Corey Canseco MD [address] [place] [phone] PCP - General Internal Medicine 09/09/19 documented as of this encounter
--- OUTSIDE RECORDS SUMMARY | 2025-06-28 12:41 | XMS_ITS | Encounter Summary ---
Author Organization [employer] Address [address] [facility] 7t [place] [address] Care Team Providers Care Manual Arts Therapy Teacher Name Role Phone Corey Canseco MD Primary Care Prov ider Reason for Visit * Reason Comments Med Refill Encounter Details Date Type Department Care Team ([facility] st Contact Info) Description 06/23/2025 Refill [facility] CHC MED & PEDS [address] [place] [address] Corey Canseco MD [address] [place] [address] Primary hypertension Social History Tobacco Use Types Packs/Day Years [...] as of this encounter Visit Diagnoses Diagnosis Primary hypertension Unspecified essential hypertension documented in this encounter Additional Health Concerns Assessment Noted Time PHQ-9 Depression Total Score: 3 05/29/20 25 9:22 AM EDT documented as of this encounter Care Teams Manual Arts Therapy Teacher Relationship Specialty Start Date End Date Corey Canseco MD [address] [place] [address] PCP - General Internal Medicine 09/09/19 documented as of this encounter
--- OUTSIDE RECORDS SUMMARY | 2025-06-28 12:41 | XMS_ITS | Encounter Summary ---
Author Organization [employer] Address 75 [facility] 7t [place] [address] Care Team Providers Care Die Trimmer Name Role Phone Corey Canseco MD Primary Care Prov ider Encounter Details Date Type Department Care Team (Late st Contact Info) Description 11/11/2024 Orders Only [facility] [address] [place] [address] Provider, MD Марина Social History Tobacco Use [...] as of this encounter Care Teams Die Trimmer Relationship Specialty Start Date End Date Corey Canseco MD [address] [place] [phone] PCP - General Internal Medicine 09/09/19 documented as of this encounter
--- OUTSIDE RECORDS SUMMARY | 2025-06-28 12:41 | XMS_ITS | Encounter Summary ---
Author Organization [employer] Address 75 [facility] 7t [place] [address] Care Team Providers Care Mechanical Equipment Sales Engineer Name Role Phone Corey Canseco MD Primary Care Prov ider Reason for Visit * Reason Comments Med Refill Encounter Details Date Type Department Care Team ([facility] st Contact Info) Description 07/04/2024 Refill [facility] CHC MED & PEDS [address] [place] [address] Corey Canseco MD [address] [place] [address] Social History Tobacco Use Types Packs/Day Years [...] documented as of this encounter Care Teams Mechanical Equipment Sales Engineer Relationship Specialty Start Date End Date Corey Canseco MD [address] [place] [phone] PCP - General Internal Medicine 09/09/19 documented as of this encounter
--- OUTSIDE RECORDS SUMMARY | 2025-06-28 12:41 | XMS_ITS | Encounter Summary ---
Author Organization [employer] Address [address] [facility] [address] 7[address] [place] [address] Care Team Providers Care Cheese Supervisor Name Role Phone Corey Canseco MD Primary Care Prov ider Encounter Details Date Type Department Care Team (Late st Contact Info) Description 12/25/2023 Orders Only [facility] MEDICINE [address] [place] [address] ProviderМарина MD Social History Tobacco Use Types [...] AM EDT Narrative 01/14/2024 4:15 PM EDT [place] [address] CT Scan Report Signed Patient: Olive Tobias MR#: [id number] 7 : 1955 Acct:[id number] Age/Sex: 68 / M ADM Date: 01/14/24 Loc: HO.CT Attending Dr: Jon Meza MD Ordering Physician: Jon Meza MD Date of Service: 01/14/24 Procedure(s): CT shoulder LT wo IV con Accession Number(s): [id number] cc: Corey Canseco MD; Jon Meza MD [...] in OV> 01/14/24 1612 DD/ 0815 TD/TT: Soil Fertility Specialist: NEREYDA Procedure Note Donotuseinterpreter, Image - 01/14/[address] [address] [address] Scan Report Signed Patient: Iona Tobias#: [id number] 7 : 6Acct:[id number] Age/Sex: 68 / MADM Date: 01/14/24 Loc: HO.CT Attending Dr: Jon Meza MD Ordering Physician: Jon Meza MD Date of Service: 01/14/24 Procedure(s): CT shoulder LT wo IV con Accession Number(s): [id number] cc: Corey Canseco MD; Jon Meza MD [...] in OV> 01/14/24 1612 DD/ 0815 TD/TT: Soil Fertility Specialist: NEREYDA [facility] External Provider IMG CT PROCEDURES Final Result * Hm Colonoscopy (04/10/2023 12:03 PM EDT) Historical Provider HEALTH MAINTENANCE Final Result documented in this encounter Visit Diagnoses Not on filedocumented in this encounter Additional Health Concerns Assessment Noted Time PHQ-9 Depression Total Score: 6 12/24/19 24 9:28 AM EDT documented as of this encounter Care Teams Cheese Supervisor Relationship Specialty Start Date End Date Corey Canseco MD [address] [place] [phone] PCP - General Internal Medicine 09/09/19 documented as of this encounter
--- OUTSIDE RECORDS SUMMARY | 2025-06-28 12:41 | XMS_ITS | Encounter Summary ---
Author Organization [employer] Address 75 [facility] 7t [place] [address] Care Team Providers Care Center Aisle Cashier Name Role Phone Corey Canseco MD Primary Care Prov ider Encounter Details Date Type Department Care Team ([facility] st Contact Info) Description 04/21/2025 Orders Only [facility] CHC MED & PEDS [address] [place] [address] Corey Canseco MD [address] [place] [address] Social History Tobacco Use Types Packs/Day Years [...] PM EDT Narrative 04/24/2025 2:42 PM EDT [facility] [address] [place] [address] XRay Report Signed Patient: Olive Tobias MR#: [id number] 7 : 1955 Acct:[id number] Age/Sex: 69 / M ADM Date: 04/24/25 Loc: HO.HOSX Attending Dr: Bennie HUI Ordering Physician: Bennie Morales Date of Service: 04/24/25 Procedure(s): XR lumbar spine 4V min Accession Number(s): [id number] cc: Corey Canseco MD; Bennie Morales EXAMINATION: [...] 04/24/25 1440 DD/ 1225 TD/TT: 04/24/25 1329 Food Safety Technician: Procedure Note Donotuseinterpreter, Image - 04/24/2025 [facility] [address] [place] [address] [address] [place] [id number] XRay Report Signed Patient: Iona Tobias#: [id number] 7 : 6Acct:[id number] Age/Sex: 69 / MADM Date: 04/24/25 Loc: HO.HOSX Attending Dr: Bennie HUI Ordering Physician: Bennie Morales Date of Service: 04/24/25 Procedure(s): XR lumbar spine 4V min Accession Number(s): [id number] cc: Corey Canseco MD; Bennie Morales EXAMINATION: [...] 04/24/25 1440 DD/ 1225 TD/TT: 04/24/25 1329 Food Safety Technician: [facility] External Provider IMG XR PROCEDURES Final Result documented in this encounter Visit Diagnoses Not on filedocumented in this encounter Additional Health Concerns Assessment Noted Time PHQ-9 Depression Total Score: 0 12/01/19 25 9:07 AM EDT documented as of this encounter Care Teams Center Aisle Cashier Relationship Specialty Start Date End Date Corey Canseco MD [address] [place] [phone] PCP - General Internal Medicine 09/09/19 documented as of this encounter
--- OUTSIDE RECORDS SUMMARY | 2025-06-28 12:41 | XMS_ITS | Clinical Summary ---
Author Organization [employer] Address [address] [facility] [address] [place] [address] Care Team Providers Care K 12 Principal Name Role Phone Corey Canseco MD Primary Care Prov ider Allergies Active Allergy Reactions Criticality Noted Date Comments Ferrous Sulfate 10/15/2022 Iron 09/26/2019 Medications * This document contains information received from the source organization and may not represent a complete record from that organization. Easy Touch Lancets 33G/Twist miscIndications:T ype 2 diabetes mellitus without complications (HCC) TEST BLOOD SUGAR THREE TIMES DAILY 100 each 5 024 Active metoprolol tartrate (Lopressor) 25 MG tablet Take 1 tablet by mouth 2 times daily. Active Jardiance 25 MGIndications:Typ e 2 diabetes mellitus without complication, without long-term current use of insulin (HCC) TAKE ONE TABLET EVERY MORNING 90 tablet 1 025 Active montelukast (Singulair) 10 MG tablet TAKE ONE TABLET EVERY EVENING 90 tablet 3 025 Active Alcohol Swabs (Alcohol Prep) 70 % pads USE THREE DAILY 100 each 11 025 Active OneTouch Delica Lancets 33G misc 1 Lancet 2 times daily. 60 each 3 025 Active Lancet Devices (Autolet) lancing device 1 each by Other route 2 times daily. 1 each 025 2025 Active albuterol (Ventolin HFA) 108 (90 Base) MCG/ACT inhaler INHALE TWO PUFFS EVERY 4 TO 6 HOURS NEEDED 18 g 5 05/16/2 025 Active gabapentin (Neurontin) 300 MG capsule Take 1 capsule (300 mg) by mouth 2 times daily. 180 capsule 3 2025 Active tobramycin-dexAME THasone (Tobradex) ophthalmic suspension INSERT ONE DROP IN THE AFFECTED EYE (S) EVERY 6 HOURS 5 mL 3 Active Diclofenac Sodium 1 % gel APPLY TWO GRAMS TO THE AFFECTED AREA(s) THREE TIMES DAILY 100 g Active Ozempic, 0.25 or 0.5 MG/DOSE, 2 MG/3ML solution pen-injectorIndic ations:Type 2 diabetes mellitus without complication, without long-term current use of insulin (HCC) INJECT 0.5mg's SUBCUTANEOUSLY ONCE PER WEEK 3 mL 2 Active cetirizine (ZyrTEC) 10 MG tablet TAKE ONE TABLET EVERY MORNING 90 tablet Active Blood Glucose Monitoring Suppl (Accu-Chek Guide) w/Device kitIndications:Ty pe 2 diabetes mellitus without complication, without long-term current use of insulin ([facility]) 1 kit 3 times daily. 1 kit Active glucose blood (Accu-Chek Guide Test) test stripIndications: Type 2 diabetes mellitus without complication, without long-term current use of insulin ([facility]) 1 each by Other route 3 times daily. 270 each 3 025 2025 Active Accu-Chek Softclix Lancets lancetsIndication s:Type 2 diabetes mellitus without complication, without long-term current use of insulin ([facility]) Use as instructed 100 each 12 025 2025 Active celecoxib (CeleBREX) 200 MG capsuleIndication s:Pain TAKE ONE CAPSULE UP TO TWICE DAILY WITH FOOD NEEDED FOR PAIN 60 capsule 1 Active atorvastatin (Lipitor) 40 MG tabletIndications :Mixed hyperlipidemia TAKE ONE TABLET EVERY MORNING 90 tablet 1 Active cyanocobalamin (Vitamin B-12) 1000 MCG tabletIndications :Vitamin B 12 deficiency TAKE ONE TABLET EVERY MORNING 90 tablet 1 Active cholecalciferol (Vitamin D-3) 25 MCG tabletIndications :Vitamin D deficiency TAKE ONE TABLET EVERY MORNING 90 tablet 1 Active lisinopril 10 MG tabletIndications :Primary hypertension TAKE ONE TABLET EVERY MORNING 30 tablet 3 Active tamsulosin (Flomax) 0.4 MG 24 hr capsule TAKE ONE CAPSULE EVERY EVENING 30 capsule 3 Active Eliquis 5 MG tablet TAKE ONE TABLET IN THE MORNING AND EVENING 60 tablet 3 Active atorvastatin (Lipitor) 40 MG tabletIndications :Mixed hyperlipidemia TAKE ONE TABLET EVERY MORNING 90 tablet 1 025 2024 Discontinued cyanocobalamin (Vitamin B-12) 1000 MCG tabletIndications :Vitamin B 12 deficiency TAKE ONE TABLET EVERY MORNING 90 tablet 1 025 2024 Discontinued cholecalciferol (Vitamin D-3) 25 MCG tabletIndications :Vitamin D deficiency TAKE ONE TABLET EVERY MORNING 90 tablet 1 025 2024 Discontinued lisinopril 10 MG tabletIndications :Primary hypertension TAKE ONE TABLET EVERY MORNING 30 tablet 3 025 2024 Discontinued tamsulosin (Flomax) 0.4 MG 24 hr capsule TAKE ONE CAPSULE EVERY NIGHT AT BEDTIME 30 capsule 3 025 2024 Discontinued Eliquis 5 MG tablet TAKE ONE TABLET IN THE MORNING AND EVENING 60 tablet 3 025 2024 Discontinued Active Problems Problem Noted [...] Mets >4 Blood work done today at [facility] Told to continue oral antyhypertensives the [...] (03/07/2024 2:26 PM EDT): Will refer to [facility] Assessment & Plan (11/30/2023 10:07 PM EDT): Will refer to gi for evalaution, refer constantly having mild stool incontinence, no bleeding Atrial fibrillation ([facility]/HCC) 02/24/2023 Assessment & Plan (04/21/2025 10:31 AM [...] degenerative 12/05/2022 HLD (hyperlipidemia) 12/05/2022 Severe obesity (CMS/HCC) 12/05/2022 Sleep apnea 12/05/2022 Uncontrolled type 2 diabetes mellitus 12/05/2022 Right foot pain 09/17/2022 Assessment & Plan (09/17/2022 12:45 PM EST): Patient refers that for the past month he has been experiencing a right foot pain proximal toes, feels like a ball on the bottom of his foot, denied trauma. Will order xray and will refer to podiatry Alcohol use disorder 09/23/2021 Assessment & Plan (07/30/2023 10:37 AM [...] up for support, patient declined interest in desktop publishing associate therapy. At this time Olive Tobias meets [...] medical appts c. Continue to engage with [facility] for extra support. Hypertension 09/23/2021 Assessment & [...] as patient requested and discussed with his corrections identification technician, discussed with patient risk vs benefits, follow [...] organization. Date Type Department Care Team Description 06/28/2025 Orders Only GENERIC EXTERNAL DATA DEPARTMENT Provider, Generic External Data 06/23/2025 Refill [facility] [address] [place] [address] Corey Canseco MD Primary hypertension 2025 Refill [facility] [address] [place] [address] Cliff Damon MD Vitamin B 12 deficiency; Vitamin D deficiency 05/29/2025 Travel 05/27/2025 Refill [facility] [address] [place] [address] Corey Canseco MD Mixed hyperlipidemia 04/30/2025 Refill [facility] [address] [place] [address] Corey Canseco MD Pain 04/21/2025 8:45 AM EDT Office Visit [facility] [address] [place] [address] Corey Canseco MD Type 2 diabetes mellitus without complication, without long-term current use of insulin ([facility]) (Primary Dx); Atrial fibrillation, unspecified type (CMS/[facility]); Body mass index (BMI) 45.0-49.9, adult ([facility]); Primary hypertension 04/21/2025 Telephone [facility] [address] [facility] [place] [address] Corey Canseco MD 04/21/2025 Orders Only [facility] [address] [facility] [place] [address] Corey Canseco MD 04/21/2025 Telephone [facility] [address] [facility] [place] [address] Corey Canseco MD Med Refill 04/21/2025 Travel 04/21/2025 Refill [facility] [address] [facility] [place] [address] Corey Canseco MD 04/20/2025 Travel 04/15/2025 Refill [facility] [address] [facility] [place] [address] Corey Canseco MD Type 2 diabetes mellitus without complication, without long-term current use of insulin ([facility]) from Last 3 Months Immunizations Immunization Administration [...] 10/28/2024 10/28/2023, 10/28/2023, 10/28/2023, Additional history exists Dental Prophylaxis 05/03/2025 11/02/2024, 0 04/15/2024, 09/16/2023, Additional history exists COVID-19 Vaccine ( season) 2025 06/10/2024, 06/11/2023, 07/07/2022, Additional history exists Influenza Vaccine (#1) 2025 , 06/11/2023, 07/07/2022, Additional history exists Diabetes: Hemoglobin A1C 10/22/2025 025, 11/30/2024, 05/25/2024, Additional history exists Tobacco Screening 11/02/2025 11/02/2024 Dental X-Ray: Bitewings 11/03/2025 11/02/19 25, 04/15/2024, 09/16/2023, Additional history exists Eye Exam 11/10/2025 11/10/2024 Alcohol/Substance Use Screening 11/30/2025 11/30/2024 SDOH Screening 11/30/2025 11/30/2024 Lipid Panel 12/02/2025 12/02/2024, 10/15, 09/24/2022, Additional history exists Depression Screening 05/29/2026 05/29/2025, 05/29/20 Dental X-Ray: Full Mouth 09/17/2026 09/16/2023 DTaP/Tdap/Td [...] TROPONIN I Routine 06/28/2025 11:53 AM EDT MAGNESIUM Routine 06/28/2025 11:53 AM EDT COMPREHENSIVE METABOLIC PANEL Routine 06/28/2025 11:53 AM EDT CBC WITH AUTO DIFFERENTIAL Routine 06/28/2025 11:53 AM EDT XR LUMBAR SPINE COMPLETE 4+ VIEWS Routine [...] Recently Relevant to Health Maintenance Results * High Sensitivity Troponin I (06/28/2025 11:53 AM EDT) TROPONIN I HIGH SENSITIVITY <2.7 <3.5 - 35.0 ng/L [facility] Comment:The [place] high sens itivity Troponin-I results should beused in conjunction with other diagnostic information suchas ECG, clinical observations and information, and patientsymptoms to aid in the diagnosis of IA. 06/28/2025 11:5 3 AM EDT 06/28/2025 11:56 AM EDT us Generic External Data Provider LAB BLOOD ORDERAB LES Final Result [facility] [address] [place] [address] [phone] * (ABNORMAL) CBC auto differential (06/28/2025 11:53 AM EDT) White Blood Count 6.0 4.8 - 10.8 X10*3/uL [facility] Red Blood Count 5.40 4.60 - 5.80 X10*6/uL [facility] Hemoglobin 15.4 14.0 - 18.0 g/dl [facility] Hematocrit 47.5 42.0 - 52.0 % [facility] Mean Corpuscular Volume 88.0 80.0 - 98.0 fL [facility] Mean Corpuscular Hemoglobin 28.5 27.0 - 33.0 pg [facility] Mean Corpuscular HGB Conc 32.4 31.0 - 36.0 g/dl [facility] Red Cell Distribution Width 14.9 11.0 - 16.0 % [facility] Platelet Count 155(L) 160 - 400 X10*3/uL [facility] Mean Platelet Volume 8.9(L) 9.4 - 12.4 fL [facility] Neutrophils Percent Auto 71.8 45 - 73 % [facility] Imm Gran Pct Auto 0.5(H) 0.0 - 0.4 % [facility] Lymphocytes Percent Auto 16.8(L) 20 - 40 % [facility] Monocytes Percent Auto 8.6 2 - 11 % [facility] Eosinophils Percent Auto 2.0 0 - 4 % [facility] Basophils Percent Auto 0.3 0 - 2 % [facility] NRBC Pct Auto 0.0 0.0 - 0.2 /100WBC [facility] Neutrophils Absolute Auto 4.3 2.0 - 8.3 x10*3/uL [facility] Imm Gran Abs Auto 0.03 0.00 - 0.03 X10*3/uL [facility] Lymphocytes Absolute Auto 1.0(L) 1.2 - 4.9 X10*3/uL [facility] Monocytes Absolute Auto 0.5 0.1 - 1.2 X10*3/uL [facility] Eosinophils Absolute Auto 0.1 0.0 - 0.4 X10*3/uL [facility] Basophils Absolute Auto 0.0 0.0 - 0.2 X10*3/uL [facility] NRBC Abs Auto 0.000 0.0 - 0.012 X10*3/uL [facility] 06/28/2025 11:5 3 AM EDT 06/28/2025 11:56 AM EDT us Generic External Data Provider LAB BLOOD ORDERAB LES Final Result Performing Organization Address [facility]/ZIP Co de Phone Number [facility] [address] [place] [phone] * Magnesium (06/28/2025 11:53 AM EDT) Magnesium 2.0 1.6 - 2.6 mg/dL [facility] 06/28/2025 11:5 3 AM EDT 06/28/2025 11:56 AM EDT us Generic External Data Provider LAB BLOOD ORDERAB LES Final Result Performing Organization Address [facility]/ZIP Co de Phone Number [facility] [address] [place] [phone] * (ABNORMAL) Comprehensive Metabolic Panel (06/28/2025 11:53 AM EDT) Sodium 139 135 - 145 mmol/L [facility] Potassium 4.4 3.3 - 5.1 mmol/L [facility] Chloride 108 96 - 108 mmol/L [facility] Carbon Dioxide 25 22 - 29 mmol/L [facility] Anion Gap 10(L) 12 - 20 [facility] Urea Nitrogen (BUN) 14 9 - 16 mg/dL [facility] Creatinine, Serum 0.83 0.5 - 1.4 mg/dL [facility] Creatinine Clr Calc Pharmacy 107.4 [facility] Comment:eGFR (calculated fro m the MDRD study equation) and eCrCl(calculated from the Cockcroft-Gault equation) are based ondifferent parameters and may not yield comparable results.If eCrCl result is absurd, please check patient'sheight/weight. Estimated Glomerular Filt Rate >60 [facility] Comment:Chronic Kidney Disea se: Estimated GFR < 60 mL/min/1.89h1Zcrbad Kidney Disease: Estimated GFR < 15 mL/min/1.73m2 Glucose 154(H) 60 - 115 mg/dL [facility] Calcium 9.1 8.4 - 10.2 mg/dL [facility] Bilirubin, Total 0.5 0.0 - 1.0 mg/dL [facility] Aspartate Amino Transferase 30 5 - 37 U/L [facility] Alanine Aminotransferase 31 0 - 40 U/L [facility] Total Protein 7.2 6.5 - 8.0 g/dL [facility] Albumin Level 4.1 3.5 - 5.0 g/dL [facility] Alkaline Phosphatase 95 39 - 117 U/L [facility] 06/28/2025 11:5 3 AM EDT 06/28/2025 11:56 AM EDT us Generic External Data Provider LAB BLOOD ORDERAB LES Final Result [facility] [address] [place] [phone] * XR Lumbar Spine Complete 4+ Views (04/24/2025 12:25 PM EDT) Anatomical Region Laterality Modality Spine, L-spine Radiographic Kristi ging 04/24/2025 12:2 5 PM EDT Narrative 04/24/2025 2:42 PM EDT [facility] [address] [place] [address] XRay Report Signed Patient: Olive Toibas MR#: [id number] 7 : 1955 Acct:[id number] Age/Sex: 69 / M ADM Date: 04/24/25 Loc: HO.HOSX Attending Dr: Bennie HUI Ordering Physician: Bennie Morales Date of Service: 04/24/25 Procedure(s): XR lumbar spine 4V min Accession Number(s): [id number] cc: Corey Canseco MD; Bennie Morales EXAMINATION: [...] 04/24/25 1440 DD/ 1225 TD/TT: 04/24/25 1329 Java Programmer: Procedure Note Donotkaylieinterpreter, Image - 04/24/2025 [facility] [address] [place] [address] XRay Report Signed Patient: Iona Tobias#: [id number] 7 : 6Acct:[id number] Age/Sex: 69 / MADM Date: 04/24/25 Loc: HO.HOSX Attending Dr: Bennie HUI Ordering Physician: Bennie Morales Date of Service: 04/24/25 Procedure(s): XR lumbar spine 4V min Accession Number(s): [id number] cc: Corey Canseco MD; Bennie Morales EXAMINATION: [...] 04/24/25 1440 DD/ 1225 TD/TT: 04/24/25 1329 Java Programmer: [facility] External Provider IMG XR PROCEDURES Final Result * POCT Glucose (04/21/2025 10:27 AM EDT) Glucose Blood, POC 158 60 - 200 mg/dL [facility] Media Lot # [id number] Lot# Expiration Date Comment:random Blood Capillary blood specimen / Unknown 04/21/2025 10:27 AM EDT Corey Carcamo MD POINT OF CARE TEST ENTER/EDIT ORDERABLES Final Result * (ABNORMAL) POCT HGB A1C (04/21/2025 10:26 AM EDT) Hemoglobin A1C 6.6(A) 4.0 - 5.7 % QC Media Lot # [id number] Lot# Expiration Date Blood 04/21/2025 10:2 6 AM EDT Corey Carcamo MD POINT OF CARE TEST ENTER/EDIT ORDERABLES Final Result * (ABNORMAL) Lipid Panel, Standard (12/02/2024 10:11 AM EDT) Triglycerides 114 <150 mg/dL [facility] Comment:Desirable Triglyceri de: less than 150 mg/dLBorderline High Triglyceride 150-199 mg/dLHigh Triglyceride: 200-499 mg/dLVery High Triglyceride: greater than or equal to 5OO mg/dL Cholesterol 119 <200 mg/dL [facility] Comment:Desirable Cholestero l: less than 200 mg/dLBorderline High Cholesterol: 200-239 mg/dLHigh Cholesterol: greater than 239 mg/dL LDL Cholesterol Calculated 69 <100 mg/dL [facility] Comment:Desirable LDL: less than 100 mg/dLNear Optimal/Above Optimal LDL: 110- 129 mg/dLBorderline High LDL: 130-159 mg/dLHigh LDL: 160-189 mg/dLVery High LDL: greater than or equal to 190 mg/dL HDL Cholesterol 28(L) >40 mg/dL [facility] Comment:Desirable HDL: great er than 40 mg/dL Note: This HDL assay may give artificially low results in patients with liver disease. Blood Venous blood specimen / Unknown 12/02/2024 10:11 AM EDT 12/02/2024 2:05 PM EDT Result [facility] Corey Carcamo MD LAB BLOOD ORDERABL ES Final Result Performing Organization Address City/[facility]/ZIP Co de Phone Number [facility] [address] [place] [phone] * Diabetes Eye Exam (11/10/2024 9:37 AM EST) Historical Provider HEALTH MAINTENANCE Final Result * Hm Colonoscopy (04/10/2023 12:03 PM EDT) Result [facility] Historical Provider HEALTH MAINTENANCE Final Result * Hepatitis C Antibody with Reflex to HCV, RNA, Quantitative, Real-Time PCR (09/24/2022 10:33 AM EST) Hepatitis C Antibody NON-REACT MARK NON-REACT MARK [employer] Index <0.02 <1.00 [employer] Comment: HCV antibody was non-reactive. There is no laboratory evidence of HCV infection. In most cases, no further action is required. However, if recent HCV exposure is suspected, a test for HCV RNA (test code 49914) is suggested. For additional information please refer to http://education.[employer]/faq/FVH32e0 (This link is being provided for informational/ educational purposes only.) 09/24/2022 10:3 3 AM EST 09/24/2022 10:33 AM EST Narrative [facility] - 09/24/2022 9:25 PM EST FASTING:NO FASTING: NO Result [facility] Corey Carcamo MD LAB BLOOD ORDERABL ES Final Result Performing Organization Address City/[facility]/ZIP Co de Phone Number [address], [place] [phone] [facility] [address] [facility], ([address]) [place] [address] from Last 3 Months or Most Recently Relevant to Health Maintenance Insurance [facility] MEDICARE REPLACEMENT D[facility]AL [facility] Care Teams K [id number] Principal Relationship Specialty Start Date End Date ChambersCorey Grace MD [address] [place] [address] [place] [address] PCP - General Internal Medicine 09/09/19
--- OUTSIDE RECORDS SUMMARY | 2025-06-28 12:41 | XMS_ITS | Encounter Summary ---
Author Organization [employer] Address [address] [facility] 7 [place] [address] Care Team Providers Care Music Therapist Name Role Phone Corey Canseco MD Primary Care Prov ider Reason for Visit * Reason Comments Med Refill Encounter Details Date Type Department Care Team (Late st Contact Info) Description 03/20/2023 Refill [facility] [address] [place] [address] Corey Canseco MD [address] [place] [address] Social History Tobacco Use Types Packs/Day Years [...] documented as of this encounter Care Teams Music Therapist Relationship Specialty Start Date End Date Corey Canseco MD [address] [place] [phone] PCP - General Internal Medicine 09/09/19 documented as of this encounter
--- OUTSIDE RECORDS SUMMARY | 2025-06-28 12:41 | XMS_ITS | Encounter Summary ---
Author Organization [employer] Address [address] [place] [address] [address] [place] [address] Care Team Providers Care Interceptor Operator Name Role Phone Corey Canseco MD Primary Care Prov ider Reason for Referral * Imaging (Routine) - Closed Specialty Diagnoses / Procedures Referred By Contac t Referred To Contact Radiology Diagnoses Chronic left shoulder pain Procedures MR Shoulder w/o Contrast Left Corey Canseco MD [address] [place] [address] Phone: tel: fax: [address] Phone: tel: fax: Referral ID Status Reason Start Date Expiration Date Visits Re quested Visits Authorized [id number] Closed 12/02/2023 12/01/2024 1 1 Encounter Details Date Type Department Care Team (Late st Contact Info) Description 12/02/2023 Orders Only [facility] [address] [place] [address] Corey Canseco MD [address] [place] [address] Chronic left shoulder pain (Primary Dx) Social [...] documented as of this encounter Care Teams Interceptor Operator Relationship Specialty Start Date End Date Corey Canseco MD [address] [place] [phone] PCP - General Internal Medicine 09/09/19 documented as of this encounter
== END 2025-06-28 11:42 | disposition home or self-care (01) ==
LOC: HO.HCS 10:37
PROVIDERS: PCP Internal Medicine; Visit Provider Internal Medicine Cardiovascular Disease
DX: I49.1 Atrial premature depolarization (principal); I49.3 Ventricular premature depolarization; I48.91 Unspecified atrial fibrillation
CPT/HCPCS: 93010

== ENCOUNTER 2025-06-28 11:26 | Emergency (ER) | payer MEDICARE, OTHER, SELFPAY ==
[2025-06-28] VITALS (11 sets, daily range): BP systolic 126–154; BP diastolic 65–95; PULSE 70–94; RESP 17–20; TEMP -17.7–36.8; O2SAT 97–99; BMI 43.8
--- NOTE | 2025-06-28 | ECG_ITS ---
Test Reason : CARDIO VERSION Blood Pressure : */* mmHG Vent. Rate : 77 BPM Atrial Rate : 77 BPM P-R Int : 190 ms QRS Dur : 102 ms QT Int : 374 ms P-R-T Axes : 42 72 27 degrees QTcB Int : 423 ms Sinus rhythm with occasional Premature ventricular complexes and Premature atrial complexes Low voltage QRS Borderline ECG When compared with ECG of 28-Jun-2025 11:48, Sinus rhythm has replaced Atrial fibrillation Questionable change in QRS axis Referred By: Rahel Jiménez Electronically Signed By: Sp Akhtar
--- NOTE | ~2025-06-28 | US_ITS ---
EXAMINATION: US TRIPLEX LOWER EXTREMITY, LEFT CLINICAL INFORMATION: [Pain COMPARISON: None available. TECHNIQUE: Color-flow triplex imaging with spectral analysis and compression Doppler were performed on the left lower extremity. FINDINGS: Examination limited due to body habitus. Limited visualization of the distal superficial femoral, peroneal and posterior tibial veins. Respiratory variation, normal compression and augmented flow are noted throughout the left lower extremity. The visualized common femoral vein, proximal and mid portions of the superficial femoral vein, profunda femoral vein, popliteal vein show no evidence of deep venous thrombosis. Limited visualization/evaluation of the peroneal and posterior tibial veins. There is no Fuentes's cyst. Subcutaneous soft tissue edema in the mid to distal thigh, calf. US/US venous duplex LE LT IMPRESSION: No evidence of deep venous thrombosis involving the left lower extremity from the common femoral vein to the popliteal vein. Of note, the distal superficial femoral vein in the calf veins are not well visualized. Subcutaneous soft tissue edema in the mid to distal thigh and calf. If the patient's symptoms persist, followup ultrasound in 5 days 7 days might be of value to exclude proximal propagation from a non-visualized calf vein. Electronically signed by: Flako Dhaliwal MD 06/28/2025 01:00 PM EDT
--- NOTE | 2025-06-28 11:40 | ED.GENADULT ---
[facility] - General Adult General Chief complaint: Arrhythmia/Palpitations Stated complaint: steve sent down to be admitted Time Seen by Provider: 06/28/25 14:46 History of Present Illness ED Provider: Gayathri JESSICA narrative: The patient is a 70-year-old male with a history of paroxysmal atrial fibrillation. He has been maintained on anticoagulation with apixaban. He is on metoprolol. He is normally in his sinus rhythm. Over the last several days he has felt weak and slow. These symptoms he typically associates with a recurrence of his atrial fibrillation. He used a home monitor yesterday that suggested he was having atrial fibrillation. Today he went into see his certified low vision therapist, Dr. Piper, who confirmed that he was in atrial fibrillation. The patient was referred to the emergency room for possible cardioversion. The patient has had no fever, sweats, chills. No chest pain. No cough or sputum. Aside from feeling somewhat run down in a manner that he considers consistent with the atrial fibrillation he has not been sick otherwise. His only other recent medical issue was that he hurt his left leg when he jumped out of his truck last week. At the time he did not make much of the injury but he has subsequently developed a lot of evident ecchymotic skin changes to the left medial thigh. The leg is not very painful and he can use the leg. He also says that a few days ago he had some floaters in his left eye. Related Data Home Medications ?Medication ?Instructions ?Recorded ?Confirmed atorvastatin 40 mg tablet 40 mg PO QAM 02/20/22 05/10/25 cholecalciferol (vitamin D3) 25 25 mcg PO QAM 02/20/22 05/10/25 mcg (1,000 unit) capsule cyanocobalamin (vitamin B-12) 1,000 mcg PO QAM 02/20/22 05/10/25 1,000 mcg tablet (Vitamin B-12) lisinopril 10 mg tablet 10 mg PO QAM 02/20/22 05/10/25 montelukast 10 mg tablet 10 mg PO BEDTIME 02/20/22 05/10/25 apixaban 5 mg tablet (Eliquis) 5 mg PO BID 04/24/22 05/10/25 Held on 02/22/25. Instructions: Resume on 02/23/25. Restart 02/23 cetirizine 10 mg tablet 10 mg PO QAM 07/02/22 05/10/25 tamsulosin 0.4 mg capsule 0.4 mg PO BEDTIME 06/07/24 05/10/25 blood sugar diagnostic (FreeStyle #10 ea 09/19/24 05/10/25 Lite Strips) lancets 33 gauge (Easy Touch Twist #100 ea 09/19/24 05/10/25 Lancets) empagliflozin 25 mg tablet 25 mg PO QAM 09/26/24 05/10/25 (Jardiance) celecoxib 200 mg capsule 200 mg PO BID PRN Pain (Scale 11/22/24 05/10/25 Score 4-6) gabapentin 300 mg capsule 300 mg PO BID 11/28/24 05/10/25 albuterol sulfate 90 mcg/actuation 2 puff inhalation Q4-6H PRN 02/01/25 05/10/25 aerosol inhaler (Ventolin HFA) Shortness Of Breath Or Wheezing semaglutide 0.25 mg or 0.5 mg (2 0.5 mg subcut TU 02/21/25 05/10/25 mg/3 mL) subcutaneous pen injector (Ozempic) Previous Rx's ?Medication ?Instructions ?Recorded methylcellulose (laxative) 500 mg 500 mg PO DAILY #90 tabs 12/19/24 tablet (Citrucel) tramadol 50 mg tablet 50 mg PO BID PRN pain #14 tabs 03/27/25 metoprolol tartrate 25 mg tablet 25 mg PO BID #90 tabs 05/29/25 flecainide 50 mg tablet 50 mg PO Q12H #60 tabs 06/28/25 Allergies Allergy/AdvReac Type Severity Reaction Status Date / Time iron AdvReac Severe Rash ( Verified 06/28/25 11:45 from oral supplement) Review of Systems Review of Systems: Yes all other systems are reviewed and are negative [facility] Past Medical History Medical History (Updated 06/28/25 @ 17:25 by Dominic Trinh MD) Family history of anesthesia complication Arthritis History of cardioversion Atrial fibrillation Asthma HTN (hypertension) Elevated cholesterol Diabetes Sciatica Sleep apnea Shoulder pain with history of repair of rotator cuff Surgical History History of total replacement of left shoulder joint H/O colonoscopy History of surgical removal of ganglion cyst Hx of rotator cuff surgery History of cardiac cath Hx of elbow surgery History of carpal tunnel release Hx of eye surgery Hx of tonsillectomy Hx of hernia repair Hx of knee surgery Family History Family History Father Heart disease HTN (hypertension) Mother Atrial fibrillation Sister Diabetes Social History Social History Household Members: Spouse Housing: House Are you a primary childcare attendant to a significant other at home: No Do you presently have visiting nurse or other home services: No Alcohol intake: current Alcohol intake frequency: a few times a week Patient Tobacco Use Status: Never used Tobacco e-Cigarette/Vaping Use: Never Used Substance Use Type: Marijuana service: No Current 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 status: retired Physical Exam ED Vital Signs: Vital Signs - 24 hr 06/28/25 11:40 06/28/25 14:37 06/28/25 15:33 Temperature 98.3 F 97.8 F Pulse Rate 83 84 81 Respiratory Rate 18 17 20 Blood Pressure 154/71 H 130/87 145/70 H Pulse Oximetry 98 98 Oxygen Delivery Method Room Air Room Air Oxygen Flow Rate 06/28/25 15:40 06/28/25 15:51 06/28/25 16:01 Temperature Pulse Rate 75 94 80 Respiratory Rate 20 20 Blood Pressure 136/73 152/95 H 152/95 H Pulse Oximetry 99 99 99 Oxygen Delivery Method Room Air Oxygen Flow Rate 06/28/25 16:04 06/28/25 16:05 06/28/25 16:18 Temperature Pulse Rate 84 83 70 Respiratory Rate 20 20 20 Blood Pressure 140/78 H 133/70 126/69 Pulse Oximetry 99 99 98 Oxygen Delivery Method Nasal Cannula Nasal Cannula Oxygen Flow Rate 4 38 06/28/25 17:31 06/28/25 17:49 Temperature 0 F L Pulse Rate 76 76 Respiratory Rate 20 20 Blood Pressure 128/65 128/65 Pulse Oximetry 97 97 Oxygen Delivery Method Room Air Room Air Oxygen Flow Rate BMI result Body Mass Index 43.8 Const Other: The patient is a very large 70-year-old male. His BMI is 43. He is 127 kilos. He is awake and alert, very pleasant. He does not seem in any distress. Orientation/consciousness: patient oriented x3 HENMT Other: The face is symmetrical, full range of excursion of the jaw, the posterior pharynx is normal, Mallampati 1 Eyes Other: Pupils are round equal, conjunctivae are clear, extraocular movements intact Neck Neck: Yes normal visual inspection and Yes full ROM Resp Effort & Inspection: normal respiratory effort Auscultation: clear to auscultation bilaterally Cardio Other: The patient has a normal heart rate but an irregular rhythm. No murmur heard GI Other: The patient has a protuberant abdomen that is soft and nontender. Skin Other: The skin of the left leg is swollen compared to the right and there is a large area of ecchymosis on the medial aspect of the left leg. Neuro General: patient oriented x3, tone normal, moves all extremities, no focal motor deficits and CN's II-XI intact bilaterally Extrem Other: The left leg is mildly larger than the right leg and seems slightly edematous. On the medial aspect of the left thigh is a large area of pale bruising. He can move the joints of the leg well. The feet are well-perfused. Course Course Course Narrative: This is a Rapid Medical Examination (RME) performed by Chet Jiménez PA-C in triage. Full HPI, ROS, assessment and treatment plan per primary provider in the Main ED. Hx: 70 yo M hx afib on apixaban here from cardiology office - patient noted to be in afib, advised by dr. wilson to come down to ED for admission. s/p ablation in 04/2025. also reports LLE bruise/pain/itching since last night. marked w/ skin pen. reports long car ride to [facility] 1 week ago. admits to floaters in L eye since 06/22/25. Plan: labs, ekg, venous duplex Medications Administered Discontinued Medications Generic Name Dose Route Start Last Admin Trade Name Freq PRN Reason Stop Dose Admin Etomidate 15 mg 06/28/25 15:31 06/28/25 15:48 Etomidate 20 Mg/10 Ml Vial IVPUSH 06/28/25 15:32 15 mg ONCE ONE Administration Flecainide Acetate 50 mg 06/28/25 17:02 06/28/25 17:46 Flecainide Acetate 50 Mg Tablet PO 06/28/25 17:03 50 mg ONCE ONE Administration Magnesium Sulfate/Dextrose 1 gm in 100 mls @ 300 mls/hr 06/28/25 16:02 06/28/25 16:35 Magnesium Sulfate/D5w IV 06/28/25 16:21 Infused ONCE ONE Infusion Procedures Procedural Sedation Indication: other (Electrocardioversion) Presedation Evaluation: The patient at his respiratory baseline with a normal mental status. The patient is obese. He has sleep apnea. However his Mallampati view was 1. Jaw excursion is full. Neck movement is full. Lungs are clear. ASA Class: II Mallampati Class: I Time of Last PO Intake: 08:00 Preparation: laboratory monitor applied, pulse oximeter, capnometry used, supplemental O2 applied, suction/airway equipment at bedside and IV secured IV Etomidate dose (mg): 15 Patient Tolerated Procedure: well Complications: none Medical Decision Making Medical Decision Making [facility] Narrative: The patient is a 70-year-old male who was referred to the emergency room from his cardiology office for a recurrence of atrial fibrillation. The patient has had occasional episodes of atrial fibrillation for several years. He is maintained on anticoagulation. He is also on metoprolol. He finds that he is quite symptomatic when he goes into atrial fibrillation. He estimates he has been in atrial fibrillation for a few days. Coincidental complaints include an injury to his left leg that acute ureter a few days ago. This was not a severe injury but it seems to have caused some unusual bruising to the left thigh which I suspect is largely with a result of him being on anticoagulation. Additionally the patient reports having had some visual floaters over the last few days. He does not feel his vision is significantly affected however. The patient's labs are unremarkable. I discussed the case with Dr. Wilson the patient's certified low vision therapist who recommended electrical cardioversion in the emergency department. The patient was consented for electrical cardioversion and for procedural sedation. The usual procedural sedation protocols were followed. He received 15 mg of IV etomidate for sedation. After he was sedated we attempted synchronized electrical cardioversion at 200 joules. The 1st attempt was unsuccessful and the patient remained in atrial fibrillation. Since the patient was still sedated we tried a 2nd time, this time I applied manual pressure to the anterior pad. The 2nd attempted synchronized cardioversion at 200 joules was successful. The patient was then in sinus rhythm with a frequent PACs and frequent PVCs. He was given 1 g of IV magnesium. He will be started on 50 mg of flecainide b.i.d. as recommended by his certified low vision therapist. He should follow up with Dr. Piper. He should also follow up with his eye doctor regarding his complaint of floaters which do not seem to be very bothersome at the moment. The patient seemed to tolerate the procedure well. He will be discharged with his . Lab Data 06/28/25 11:53 06/28/25 11:53 Labs: Lab Results 06/28/25 Range/Units 11:53 WBC 6.0 (4.8-10.8) X10*3/uL RBC 5.40 (4.60-5.80) X10*6/uL Hgb 15.4 (14.0-18.0) g/dl Hct 47.5 (42.0-52.0) % MCV 88.0 (80.0-98.0) fL MCH 28.5 (27.0-33.0) pg MCHC 32.4 (31.0-36.0) g/dl RDW 14.9 (11.0-16.0) % Plt Count 155 L (160-400) X10*3/uL MPV 8.9 L (9.4-12.4) fL Immature Gran % (Auto) 0.5 H (0.0-0.4) % Neut % (Auto) 71.8 (45-73) % Lymph % (Auto) 16.8 L (20-40) % [place] % (Auto) 8.6 (2-11) % Eos % (Auto) 2.0 (0-4) % Baso % (Auto) 0.3 (0-2) % Lymph # (Auto) 1.0 L (1.2-4.9) X10*3/uL [place] # (Auto) 0.5 (0.1-1.2) X10*3/uL Eos # (Auto) 0.1 (0.0-0.4) X10*3/uL Baso # (Auto) 0.0 (0.0-0.2) X10*3/uL Abs Immat Gran (auto) 0.03 (0.00-0.03) X10*3/uL Absolute Neuts (auto) 4.3 (2.0-8.3) x10*3/uL Absolute Nucleated RBC 0.000 (0.0-0.012) X10*3/uL Nucleated RBC % (auto) 0.0 (0.0-0.2) /100WBC Sodium 139 (135-145) mmol/L Potassium 4.4 (3.3-5.1) mmol/L Chloride 108 (96-108) mmol/L Carbon Dioxide 25 (22-29) mmol/L Anion Gap 10 L (12-20) BUN 14 (9-16) mg/dL Creatinine 0.83 (0.5-1.4) mg/dL Estim Creat Clear Calc 107.4 Estimated GFR > 60 Random Glucose 154 H (60-115) mg/dL Calcium 9.1 (8.4-10.2) mg/dL Magnesium 2.0 (1.6-2.6) mg/dL Total Bilirubin 0.5 (0.0-1.0) mg/dL AST 30 (5-37) U/L ALT 31 (0-40) U/L Alkaline Phosphatase 95 (39-117) U/L Troponin I High Sens < 2.7 (<3.5-35.0) ng/L Total Protein 7.2 (6.5-8.0) g/dL Albumin 4.1 (3.5-5.0) g/dL Discharge Plan Discharge Clinical Impression: Atrial fibrillation, Traumatic ecchymosis of left thigh, Visual floaters Patient Disposition: Home, Self-Care Instructions: A-fib (Atrial Fibrillation) (ED), Eye (Visual) Floaters (ED), Procedural Sedation (ED) Additional Instructions: You had procedural sedation today to allow for electrical cardioversion of your atrial fibrillation. You seem to be in sinus rhythm at this point. Your certified low vision therapist as recommended that you be on flecainide 50 mg 2 times a day going forward. Please start taking this medication. If you feel that this medication is give you any side effects please contact Dr. Wilson to discuss what you were experiencing. Make a follow up appointment with Dr. Wilson's office. Please also contact your eye doctor's office for evaluation of the floaters you have been experiencing. Return to the emergency room if significantly worse. Prescriptions: New flecainide 50 mg tablet 50 mg PO Q12H Qty: 60 0RF No Action tramadol 50 mg tablet 50 mg PO BID PRN (Reason: pain) Qty: 14 0RF metoprolol tartrate 25 mg tablet 25 mg PO BID Qty: 90 3RF Rx Instructions: Dose increase to 25mg twice daily. albuterol sulfate [Ventolin HFA] 90 mcg/actuation Hfa Aerosol Inhaler 2 puff INHALATION Q4-6H PRN (Reason: Shortness Of Breath Or Wheezing) Ozempic 0.25 mg or 0.5 mg (2 mg/3 mL) Pen Injector 0.5 mg SUBCUT TU atorvastatin 40 mg tablet 40 mg PO QAM lisinopril 10 mg tablet 10 mg PO QAM montelukast 10 mg tablet 10 mg PO BEDTIME cyanocobalamin (vitamin B-12) [Vitamin B-12] 1,000 mcg tablet 1,000 mcg PO QAM cholecalciferol (vitamin D3) 25 mcg (1,000 unit) capsule 25 mcg PO QAM Eliquis 5 mg tablet 5 mg PO BID cetirizine 10 mg tablet 10 mg PO QAM tamsulosin 0.4 mg capsule 0.4 mg PO BEDTIME Citrucel 500 mg tablet 500 mg PO DAILY Qty: 90 2RF Rx Instructions: take it with full glass of water Jardiance 25 mg tablet 25 mg PO QAM (DME) lancets [Easy Touch Twist Lancets] 33 gauge misc See Rx Instructions .ROUTE TID Qty: 100 Rx Instructions: As directed (DME) FreeStyle Lite Strips Strip See Rx Instructions .ROUTE TID Qty: 10 Rx Instructions: As directed gabapentin 300 mg capsule 300 mg PO BID celecoxib 200 mg capsule 200 mg PO BID PRN (Reason: Pain (Scale Score 4-6)) Referrals: [facility] [Provider Group] Corey Canseco MD [Primary Care Provider, Medical] Sp Wilson MD [Physician, Cardiology] Interventions: ED Discharge Assessment Last Done: 06/28/25 17:49 Discharge Date/Time: 06/28/25 17:49 Print Language: Mongolian
--- NOTE | 2025-06-28 11:43 | ECG_ITS ---
Test Reason : short of breath Blood Pressure : */* mmHG Vent. Rate : 78 BPM Atrial Rate : * BPM P-R Int : * ms QRS Dur : 102 ms QT Int : 348 ms P-R-T Axes : * 11 40 degrees QTcB Int : 396 ms Atrial fibrillation with premature ventricular or aberrantly conducted complexes Low voltage QRS Cannot rule out Anterior infarct (cited on or before 24-Feb-2022) Abnormal ECG When compared with ECG of 02-Dec-2024 14:37, Atrial fibrillation has replaced Sinus rhythm Questionable change in QRS axis Referred By: Rahel Jiménez Electronically Signed By: Sp Akhtar
[2025-06-28 11:56] LABS: MANUAL DIFF FLAG NO
[2025-06-28 11:58] LABS: Hematocrit 47.5 % (42.0-52.0); Hemoglobin 15.4 g/dl (14.0-18.0); Imm Gran Abs Auto 0.03 X10*3/uL (0.00-0.03); Imm Gran Pct Auto 0.5 % (0.0-0.4); Lymphocytes Absolute Auto 1.0 X10*3/uL (1.2-4.9); Mean Corpuscular HGB Conc 32.4 g/dl (31.0-36.0); Mean Corpuscular Hemoglobin 28.5 pg (27.0-33.0); Mean Corpuscular Volume 88.0 fL (80.0-98.0); NRBC Abs Auto 0.000 X10*3/uL (0.0-0.012); NRBC Pct Auto 0.0 /100WBC (0.0-0.2); Platelet Count 155 X10*3/uL (160-400); Red Blood Count 5.40 X10*6/uL (4.60-5.80); White Blood Count 6.0 X10*3/uL (4.8-10.8)
[2025-06-28 12:13] LABS: Alanine Aminotransferase 31 U/L (0-40); Albumin Level 4.1 g/dL (3.5-5.0); Alkaline Phosphatase 95 U/L (39-117); Anion Gap 10 (12-20); Aspartate Amino Transferase 30 U/L (5-37); Blood Urea Nitrogen 14 mg/dL (9-16); Calcium 9.1 mg/dL (8.4-10.2); Carbon Dioxide 25 mmol/L (22-29); Chloride 108 mmol/L (96-108); Creatinine Clr Calc Pharmacy 107.4; Estimated Glomerular Filt Rate > 60; Magnesium 2.0 mg/dL (1.6-2.6); Potassium 4.4 mmol/L (3.3-5.1); Sodium 139 mmol/L (135-145); Total Protein 7.2 g/dL (6.5-8.0)
[2025-06-28 12:22] LABS: Troponin-I High Sensitivity < 2.7 ng/L (<3.5-35.0)
[2025-06-28] MEDS: Etomidate 20 MG/10 ML VIAL 15 MG IVPUSH (15:48)
--- NOTE | 2025-06-28 15:56 | PC.NURSE ---
cardio version performed for a-fib but controlled rate in the 90's, pt tolerated the procedure well, it took two shocks at 200jules to convert back into normal sinus with pvc's
--- NOTE | 2025-06-28 16:30 | PM.CNCAR ---
History of Present Illness History of Present Illness Date of Service: 06/28/25 Chief complaint: Paroxysmal atrial fibrillation Narrative: 70 year gentleman with known history of paroxysmal atrial fibrillation and was treated with flecainide and amiodarone in the past and subsequently underwent cardioversion and was taken off the flecainide at that stage. He has stopped drinking alcohol but in the last 2 months has been drinking and recently on his birthday he drank more than usual. He is saying that since then he has been getting off and on episodes of atrial fibrillation which he has documented with Jayne Montiel. He was feeling fatigued and tired which is serous symptom for atrial fibrillation. Due to these symptoms he came to the office an EKG confirmed atrial fibrillation. He was sent to the emergency department. In the ER his workup has been negative. He continues to be in persistent atrial fibrillation. He has been taking Eliquis without any interruption over the last month. [facility] Past Medical History Medical History (Updated 03/14/25 @ 13:45 by EZ Borrego) Family history of anesthesia complication Arthritis History of cardioversion Atrial fibrillation Asthma HTN (hypertension) Elevated cholesterol Diabetes Sciatica Sleep apnea Shoulder pain with history of repair of rotator cuff Family History Family History Father Heart disease HTN (hypertension) Mother Atrial fibrillation Sister Diabetes Surgical History Surgical History History of total replacement of left shoulder joint H/O colonoscopy History of surgical removal of ganglion cyst Hx of rotator cuff surgery History of cardiac cath Hx of elbow surgery History of carpal tunnel release Hx of eye surgery Hx of tonsillectomy Hx of hernia repair Hx of knee surgery Social History Social History Household Members: Spouse Housing: House Are you a primary professional healthcare representative to a significant other at home: No Do you presently have visiting nurse or other home services: No Alcohol intake: current Alcohol intake frequency: a few times a week Patient Tobacco Use Status: Never used Tobacco Smoked in Last 30 Days: No e-Cigarette/Vaping Use: Never Used Use of substances other than those prescribed or required for medical reasons: No Substance Use Type: Marijuana Advance Directives: No Advance Directives Information Provided: Yes Do you have a plan to hurt others: No Plan service: No Current 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 status: retired Meds Allergies Allergy/AdvReac Type Severity Reaction Status Date / Time iron AdvReac Severe Rash ( Verified 06/28/25 11:45 from oral supplement) Home Medications ?Medication ?Instructions ?Recorded ?Confirmed ?Last Taken ?Type atorvastatin 40 mg tablet 40 mg PO QAM 02/20/22 05/10/25 12/02/24 History cholecalciferol (vitamin D3) 25 25 mcg PO QAM 02/20/22 05/10/25 12/02/24 History mcg (1,000 unit) capsule cyanocobalamin (vitamin B-12) 1,000 mcg PO QAM 02/20/22 05/10/25 12/02/24 History 1,000 mcg tablet (Vitamin B-12) lisinopril 10 mg tablet 10 mg PO QAM 02/20/22 05/10/25 02/20/25 History montelukast 10 mg tablet 10 mg PO BEDTIME 02/20/22 05/10/25 07/12/24 History apixaban 5 mg tablet (Eliquis) 5 mg PO BID 04/24/22 05/10/25 02/18/25 History Held on 02/22/25. Instructions: Resume on 02/23/25. Restart 02/23 cetirizine 10 mg tablet 10 mg PO QAM 07/02/22 05/10/25 12/02/24 History tamsulosin 0.4 mg capsule 0.4 mg PO BEDTIME 06/07/24 05/10/25 07/12/24 History blood sugar diagnostic (FreeStyle #10 ea 09/19/24 05/10/25 Unknown History Lite Strips) lancets 33 gauge (Easy Touch Twist #100 ea 09/19/24 05/10/25 Unknown History Lancets) empagliflozin 25 mg tablet 25 mg PO QAM 09/26/24 05/10/25 02/18/25 History (Jardiance) celecoxib 200 mg capsule 200 mg PO BID PRN Pain (Scale 11/22/24 05/10/25 02/14/25 History Score 4-6) gabapentin 300 mg capsule 300 mg PO BID 11/28/24 05/10/25 02/21/25 05:30 History albuterol sulfate 90 mcg/actuation 2 puff inhalation Q4-6H PRN 02/01/25 05/10/25 Unknown History aerosol inhaler (Ventolin HFA) Shortness Of Breath Or Wheezing semaglutide 0.25 mg or 0.5 mg (2 0.5 mg subcut TU 02/21/25 05/10/25 02/14/25 History mg/3 mL) subcutaneous pen injector (Ozempic) Physical Exam Vital Signs: Vital Signs: Last Vital Signs Temp 97.8 F 06/28/25 14:37 Pulse 70 06/28/25 16:18 Resp 20 06/28/25 16:18 BP 126/69 06/28/25 16:18 Pulse Ox 98 06/28/25 16:18 O2 Del Method Nasal Cannula 06/28/25 16:18 O2 Flow Rate 38 06/28/25 16:18 Oxygen Flow Rate 4 06/28/25 16:04 BMI result Body Mass Index 43.8 GENERAL APPEARANCE: in no acute distress, pleasant. NECK: no carotid bruit, no jugular venous distention. SKIN: no suspicious lesions, warm and dry. HEART: no murmurs, irregular rate and rhythm. LUNGS: clear to auscultation bilaterally. ABDOMEN: soft, nontender. EXTREMITIES: no edema. PERIPHERAL PULSES: equal. NEUROLOGIC: No gross deficits, AAO X 3 Objective Labs and Meds 06/28/25 11:53 06/28/25 11:53 Lab results: Laboratory Results - last 24 hr 06/28/25 11:53 WBC 6.0 RBC 5.40 Hgb 15.4 Hct 47.5 MCV 88.0 MCH 28.5 MCHC 32.4 RDW 14.9 Plt Count 155 L MPV 8.9 L Immature Gran % (Auto) 0.5 H Neut % (Auto) 71.8 Lymph % (Auto) 16.8 L Millard % (Auto) 8.6 Eos % (Auto) 2.0 Baso % (Auto) 0.3 Lymph # (Auto) 1.0 L Millard # (Auto) 0.5 Eos # (Auto) 0.1 Baso # (Auto) 0.0 Abs Immat Gran (auto) 0.03 Absolute Neuts (auto) 4.3 Absolute Nucleated RBC 0.000 Nucleated RBC % (auto) 0.0 Sodium 139 Potassium 4.4 Chloride 108 Carbon Dioxide 25 Anion Gap 10 L BUN 14 Creatinine 0.83 Estim Creat Clear Calc 107.4 Estimated GFR > 60 Random Glucose 154 H Calcium 9.1 Magnesium 2.0 Total Bilirubin 0.5 AST 30 ALT 31 Alkaline Phosphatase 95 Troponin I High Sens < 2.7 Total Protein 7.2 Albumin 4.1 Imaging Radiologist's impression: Impressions Venous Duplex 06/28/25 12:00 IMPRESSION: No evidence of deep venous thrombosis involving the left lower extremity from the common femoral vein to the popliteal vein. Of note, the distal superficial femoral vein in the calf veins are not well visualized. Subcutaneous soft tissue edema in the mid to distal thigh and calf. If the patient's symptoms persist, followup ultrasound in 5 days 7 days might be of value to exclude proximal propagation from a non-visualized calf vein. Electronically signed by: Flako Dhaliwal MD 06/28/2025 01:00 PM EDT RP Assessment and Plan (1) Atrial fibrillation: Status: Acute Plan Pleasant 70 year gentleman presenting with paroxysmal atrial fibrillation. This is related to alcohol use and he has been drinking heavily more recently. I have cautioned him that alcohol is the cause for his AFib episode and he needs to cut back otherwise any management plan may not work as he already had ablation done in the past. Our plan is to cardiovert him in the emergency department. He will continue the Eliquis 5 mg twice a day. We will start him back on flecainide 50 mg twice a day. He will abstain from alcohol. Continue metoprolol 25 mg twice a day. As he gets cardioverted and recovers he can be discharged back home. We will set up follow-up for him. Thank you for allowing me to participate in the care of your patient. Please feel free to contact me if you have any questions. Procedures Date of Service Date of Service: 06/28/25
== END 2025-06-28 17:49 | disposition home or self-care (01) ==
PROVIDERS: Physician Assistant Medical; Emergency Provider Emergency Medicine; PCP Internal Medicine
DX: I48.91 Unspecified atrial fibrillation (principal); I49.8 Other specified cardiac arrhythmias; R06.02 Shortness of breath; R60.0 Localized edema; S70.12XA Contusion of left thigh, initial encounter; X58.XXXA Exposure to other specified factors, initial encounter; Y93.9 Activity, unspecified; Y92.9 Unspecified place or not applicable; Y99.8 Other external cause status; Z79.899 Other long term (current) drug therapy
CPT/HCPCS: 36415; 80053; 83735; 84484; 85025; 93005; 93971; 96365; 96375; 99285; J3475

== ENCOUNTER → 2025-06-28 11:43 | Outpatient (BNV) | payer MEDICARE, SELFPAY | PROVIDERS: PCP Internal Medicine; Visit Provider Radiology Diagnostic Ultrasound | DX: M79.605 Pain in left leg (principal) | CPT/HCPCS: 93971 ==

== ENCOUNTER → 2025-06-28 14:37 | Outpatient (BNV) | payer MEDICARE, SELFPAY | PROVIDERS: Emergency Provider Emergency Medicine; PCP Internal Medicine; Visit Provider Internal Medicine Cardiovascular Disease | DX: I48.91 Unspecified atrial fibrillation (principal) | CPT/HCPCS: 99284 ==

== ENCOUNTER 2025-07-03 08:36 | Outpatient (AMB) | payer MEDICARE, SELFPAY ==
--- NOTE | 2025-07-03 08:37 | MHC.OFFVIS ---
Vital Signs 07/03/25 08:45 Height 5 ft 7 in Weight 280 lb BMI 43.8 BP 128/70 Blood Pressure Location Rt brachial Position Sitting Pulse 70 Pulse Source Pulse Oximeter Pulse Oximetry (%) 97 Oxygen Delivery Method Room Air Intake Visit Reasons: 6m Intake Note: ESTABLISHED PATIENT for mgmt of hemorrhoids + constipation. Chief Complaint; Pt denies any current GI sx or concerns. Pt confirms he is taking current Rx as instructed and w/o complication. Pt does report recent ED admission for Afib exacerbation. He does confirm that he is OK as of today. Cleaning Supervisor Required: No Accompanied by: Self / Same As Patient Allergies iron Adverse Reaction (Severe, Verified 07/03/25 08:38) Rash ( from oral supplement) HPI HPI 6m: Details: LAST VISIT: Hemorrhoids Postprandial diarrhea Plan Patient will increase fiber in his diet. Will add additional fiber. Neuro surgery referral : IMPRESSION: 5 mm synovial cyst, right L4-5 facet joint and spondylosis with grade 1 anterolisthesis at L4-5 compressing the neural elements of the thecal sac and the L4 exiting nerve roots. Multilevel lumbar spondylosis L2-3 to L5-S1 likely encroaching the neural elements. Right foramen stenosis, L5-S1, compressing the right L5 exiting nerve root on a degenerative basis. ? Patient denies any urinary or fecal incontinence although does experiences occasional fecal leakage. Patient will follow-up in the office in 6 months. He will call us if you have any GI concerning symptoms. Patient is agreeable to current plan of care and verbalizes understanding of instructions. He was given the opportunity to ask questions and all questions answered. ? Thank you for allowing me to participate in his care Referrals Neuro Spine Referral M47.816 New methylcellulose (laxative) (Citrucel) take it with full glass of water 500 mg PO DAILY 90 tabs 2RF K59.00 TODAY'S VISIT Patient is here today patient reports to be feeling much better. Patient is taking fiber supplement and reports that he no longer has postprandial diarrhea. Occasional however epigastric and loose stools if he eats something that he should not. Patient is trying to avoid dietary triggers. Patient admits to drinking alcohol over the past few weeks have your than normal. Patient seen in the ED, persistent atrial fibrillation. Patient was cardioverted then admitted to the hospital. Patient reports no GI concerning symptoms. He understands that when he eats or drinks alcohol he might have abdominal bloating and loose stools. Denies melena, hematochezia, unintentional weight loss or ribbon like stools. [facility] Medical History Family history of anesthesia complication Arthritis History of cardioversion Atrial fibrillation Asthma HTN (hypertension) Elevated cholesterol Diabetes Sciatica Sleep apnea Shoulder pain with history of repair of rotator cuff Surgical History History of total replacement of left shoulder joint H/O colonoscopy History of surgical removal of ganglion cyst Hx of rotator cuff surgery History of cardiac cath Hx of elbow surgery History of carpal tunnel release Hx of eye surgery Hx of tonsillectomy Hx of hernia repair Hx of knee surgery Family History Father Heart disease HTN (hypertension) Mother Atrial fibrillation Sister Diabetes Social History Household Members: Spouse Housing: House Are you a primary patient care representative to a significant other at home: No Do you presently have visiting nurse or other home services: No Alcohol intake: current Alcohol intake frequency: a few times a week Patient Tobacco Use Status: Never used Tobacco e-Cigarette/Vaping Use: Never Used Substance Use Type: Marijuana service: No Current 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 status: retired Review of Systems Const Denies weight gain and Denies weight loss ENT Reports no additional complaints, Denies dysphagia and Denies odynophagia Card Reports no additional complaints Resp Reports no additional complaints GI Denies abdominal pain, Denies belching, Denies melena, Denies bloating, Denies change in bowel habits, Denies dysphagia, Denies excessive flatus, Denies dyspepsia, Denies heartburn, Denies diarrhea, Reports loose stools (Occasional), Denies nausea, Denies odynophagia and Denies vomiting Reports no additional complaints Musc Reports no additional complaints Neuro Reports no additional complaints Psych Reports no additional complaints Endo Reports no additional complaints Physical Exam Vital Signs: Last Vital Signs Pulse 70 07/03/25 08:45 BP 128/70 07/03/25 08:45 Pulse Ox 97 07/03/25 08:45 Oxygen Delivery Method Room Air 07/03/25 08:45 BMI result Body Mass Index 43.8 Const General: healthy appearing and no acute distress Nutritional Appearance: obese Orientation/consciousness: patient oriented x3 Resp Effort & Inspection: normal respiratory effort, able to speak in complete sentences, no tracheal deviation and symmetric chest movement Auscultation: clear to auscultation bilaterally Cardio Jugular venous distension: no JVD Rate: regular rate GI Inspection: Yes normal to inspection, No distended and Yes obesity Palpation (GI): Soft to palpation, not firm, nontender and No hepatosplenomegaly present Auscultation: normal bowel sounds General: Yes no CVA tenderness Back/Spine/Pelvis Back: no CVA tenderness Skin General skin exam: elasticity normal, turgor normal and dry skin Neuro General: patient oriented x3 Psych Appearance: grossly normal Mental Status: mental status grossly normal Speech and movement: Normal speech and movement present Affect: normal affect Assessment & Plan Assessment & Plan (1) Hemorrhoids: Code(s): K64.9 - Unspecified hemorrhoids Category: Medical Qualifiers: Hemorrhoid type: other Qualified Code(s): K64.8 - Other hemorrhoids (2) Postprandial diarrhea: Code(s): K52.9 - Noninfective gastroenteritis and colitis, unspecified Plan Patient was encouraged to continue high-fiber diet. Avoid alcohol and dietary triggers. Staying upright for minimum 3 hours after meals discussed with patient. Eating smaller meals and more often. Patient was also encouraged to take pre and probiotics. Patient will be seen in the office in 1 year, sooner on as needed basis. He had normal colonoscopy in 2022. Patient is agreeable to current plan of care and verbalizes understanding of instructions. He was given the opportunity to ask questions and all questions answered. Thank you for allowing me to participate in his care Coding Level of Care Code Est Pt Level 3 (49795) Diagnoses Other hemorrhoids K64.8 Hemorrhoid type: other Postprandial diarrhea K52.9 Time Spent (min) 25 Comment 15 minutes spent with patient and additional 10 minutes spent reviewing his records
[2025-07-03 08:45] VITALS: BP 128/70; PULSE 70; O2SAT 97; BMI 43.8
--- OUTSIDE RECORDS SUMMARY | 2025-07-03 09:06 | XMS_ITS | Encounter Summary ---
Author Organization [employer] Address [address] [place] [address] 7 [place] [address] Care Team Providers Care Medical Tech Name Role Phone Corey Canseco MD Primary Care Prov ider Reason for Referral * Imaging (Routine) - Closed Specialty Diagnoses / Procedures Referred By Contac t Referred To Contact Radiology Diagnoses Chronic left shoulder pain Procedures MR Shoulder w/o Contrast Left Corey Canseco MD [address] [place] [address] Phone: tel: fax: [address] Phone: tel: fax: Referral ID Status Reason Start Date Expiration Date Visits Re quested Visits Authorized [id number] Closed 12/02/2023 12/01/2024 1 1 Encounter Details Date Type Department Care Team (Late st Contact Info) Description 12/02/2023 Orders Only [facility] MED [facility] PEDS [address] [place] [address] Corey Canseco MD [address] [place] [address] Chronic left shoulder pain (Primary Dx) Social [...] documented as of this encounter Care Teams Medical Tech Relationship Specialty Start Date End Date Corey Canseco MD [address] [place] [id number] PCP - General Internal Medicine 09/09/19 documented as of this encounter
--- OUTSIDE RECORDS SUMMARY | 2025-07-03 09:06 | XMS_ITS | Encounter Summary ---
Author Organization [employer] Address [address] [place] [address] 7 [place] [address] Care Team Providers Care Deckhand Fishing Vessel Name Role Phone Corey Canseco MD Primary Care Prov ider Encounter Details Date Type Department Care Team (Latest Contact Info) Description 09/26/2019 Abstract [facility] CONVERSIONS Dental, Provider, DDS Social History Tobacco [...] on filedocumented in this encounter Care Teams Deckhand Fishing Vessel Relationship Specialty Start Date End Date Corey Canseco MD [address] [place] [address] PCP - General Internal Medicine 09/09/19 documented as of this encounter
--- OUTSIDE RECORDS SUMMARY | 2025-07-03 09:06 | XMS_ITS | Encounter Summary ---
Author Organization [employer] Address [address] [facility] 7t [place] [address] Care Team Providers Care Kier Hand Name Role Phone Corey Canseco MD Primary Care Prov ider Reason for Visit * Reason Onset Date Comments Med Refill 03/27/2025 Encounter Details Date Type Department Care Team (Late st Contact Info) Description 03/27/2025 Refill [facility] MED & PEDS [address] [place] [address] Corey Canseco MD [address] [place] [address] Social History Tobacco Use Types Packs/Day Years [...] documented as of this encounter Care Teams Kier Hand Relationship Specialty Start Date End Date Corey Canseco MD [address] [place] [id number] PCP - General Internal Medicine 09/09/19 documented as of this encounter
--- OUTSIDE RECORDS SUMMARY | 2025-07-03 09:06 | XMS_ITS | Encounter Summary ---
Author Organization [employer] Address [address] [facility] 7t [place] [address] Care Team Providers Care Gantry Crane Operator Name Role Phone Corey Canseco MD Primary Care Prov ider Encounter Details Date Type Department Care Team ([facility] st Contact Info) Description 06/01/2024 Orders Only [facility] MED & PEDS [address] [place] [address] Corey Canseoc MD [address] [place] [address] Social History Tobacco Use Types Packs/Day Years [...] documented as of this encounter Care Teams Gantry Crane Operator Relationship Specialty Start Date End Date Corey Canseco MD [address] [place] [address] PCP - General Internal Medicine 09/09/19 documented as of this encounter
--- OUTSIDE RECORDS SUMMARY | 2025-07-03 09:06 | XMS_ITS | Encounter Summary ---
Author Organization [employer] Address [address] [facility] [address] [place] [address] Care Team Providers Care Lens Cleaner Name Role Phone Corey Canseco MD Primary Care Prov ider Encounter Details Date Type Department Care Team (Late st Contact Info) Description 12/25/2023 Orders Only [facility] MEDICINE [address] [place] [address] ProviderМарина MD Social History Tobacco Use Types [...] AM EDT Narrative 01/14/2024 4:15 PM EDT [place] [address] [address] Scan Report Signed Patient: Olive Tobias MR#: [id number] 7 : 1955 Acct:[id number] Age/Sex: 68 / M ADM Date: 01/14/24 Loc: HO.CT Attending Dr: Jon Meza MD Ordering Physician: Jon Meza MD Date of Service: 01/14/24 Procedure(s): CT shoulder LT wo IV con Accession Number(s): [id number] cc: Corey Canseco MD; Jon Meza MD [...] in OV> 01/14/24 1612 DD/ 0815 TD/TT: Personal Care Aide: NEREYDA Procedure Note Donotuseinterpreter, Image - 01/14/[address] [address] [address] Scan Report Signed Patient: Iona Tobias#: [id number] 7 : 6Acct:[id number] Age/Sex: 68 / MADM Date: 01/14/24 Loc: HO.CT Attending Dr: Jon Meza MD Ordering Physician: Jon Meza MD Date of Service: 01/14/24 Procedure(s): CT shoulder LT wo IV con Accession Number(s): [id number] cc: Corey Canseco MD; Jon Meza MD [...] in OV> 01/14/24 1612 DD/ 0815 TD/TT: Personal Care Aide: NEREYDA [facility] External Provider IMG CT PROCEDURES Final Result * Hm Colonoscopy (04/10/2023 12:03 PM EDT) Historical Provider HEALTH MAINTENANCE Final Result documented in this encounter Visit Diagnoses Not on filedocumented in this encounter Additional Health Concerns Assessment Noted Time PHQ-9 Depression Total Score: 6 12/24/19 24 9:28 AM EDT documented as of this encounter Care Teams Lens Cleaner Relationship Specialty Start Date End Date Corey Canseco MD [address] [place] [id number] PCP - General Internal Medicine 09/09/19 documented as of this encounter
--- OUTSIDE RECORDS SUMMARY | 2025-07-03 09:06 | XMS_ITS | Encounter Summary ---
Author Organization [employer] Address [address] [facility] 7t [place] [address] Care Team Providers Care Die Maintenance Name Role Phone Corey Canseco MD Primary Care Prov ider Reason for Visit * Reason Comments Med Refill Encounter Details Date Type Department Care Team ([facility] st Contact Info) Description 07/04/2024 Refill [facility] MED & PEDS [address] [place] [address] Corey Canseco MD [address] [place] [address] Social History Tobacco Use Types Packs/Day Years [...] your housing situation today? I have dino srping 07/01/[address] you li [...] as of this encounter Care Teams Die Maintenance Relationship Specialty Start Date End Date Corey Canseco MD [address] [place] [id number] PCP - General Internal Medicine 09/09/19 documented as of this encounter
--- OUTSIDE RECORDS SUMMARY | 2025-07-03 09:06 | XMS_ITS | Encounter Summary ---
Author Organization [employer] Address [address] [place] [address] [address] [place] [address] Care Team Providers Care Sound Tester Name Role Phone Corey Canseco MD Primary [...] on filedocumented in this encounter Care Teams Sound Tester Relationship Specialty Start Date End Date Corey Canseco MD [address] [place] [address] PCP - General Internal Medicine 09/09/19 documented as of this encounter
--- OUTSIDE RECORDS SUMMARY | 2025-07-03 09:07 | XMS_ITS | Encounter Summary ---
Author Organization [employer] Address [address] [facility] [address] [place] [address] Care Team Providers Care Senior Media Buyer Name Role Phone Corey Canseco MD Primary [...] Procedure Name Priority Date/Time Associated Diagnosis Comments LOWER EXTREMITY VENOUS DUPLEX LEFT Routine 06/28/2025 12:00 PM EDT HIGH SENSITIVITY TROPONIN I Routine 06/28/2025 11:53 AM EDT CBC WITH AUTO DIFFERENTIAL Routine 06/28/2025 11:53 AM EDT MAGNESIUM Routine 06/28/2025 11:53 AM EDT COMPREHENSIVE METABOLIC PANEL Routine 06/28/2025 11:53 AM EDT documented in this encounter Results * Lower Extremity Venous Duplex (06/28/2025 12:00 PM EDT) 06/28/2025 12:0 0 PM EDT Narrative [facility] - 06/28/2025 1:03 PM EDT [address] [address] Ultrasound Report Signed Patient: Olive Tobias MR#: [id number] 7 : 1955 Acct:[id number] Age/Sex: 70 / M ADM Date: 06/28/25 Loc: HO.ED Attending Dr: Ordering Physician: Rahel Jiménez Date of Service: 06/28/25 Procedure(s): US venous duplex LE LT Accession Number(s): [id number] cc: Corey Canseco MD; Rahel Jiménez Reason for Exam: recent travel LLE pain r/o DVT EXAMINATION: US TRIPLEX LOWER EXTREMITY, LEFT CLINICAL INFORMATION: [Pain COMPARISON: None available. TECHNIQUE: Color-flow triplex imaging with spectral analysis and compression Doppler were performed on the left lower extremity. FINDINGS: Examination limited due to body habitus. Limited visualization of the distal superficial femoral, peroneal and posterior tibial veins. Respiratory variation, normal compression and augmented flow are noted throughout the left lower extremity. The visualized common femoral vein, proximal and mid portions of the superficial femoral vein, profunda femoral vein, popliteal vein show no evidence of deep venous thrombosis. Limited visualization/evaluation of the peroneal and posterior tibial veins. There is no Fuentes's cyst. Subcutaneous soft tissue edema in the mid to distal thigh, calf. US/US venous duplex LE LT IMPRESSION: No evidence of deep venous thrombosis involving the left lower extremity from the common femoral vein to the popliteal vein. Of note, the distal superficial femoral vein in the calf veins are not well visualized. Subcutaneous soft tissue edema in the mid to distal thigh and calf. If the patient's symptoms persist, followup ultrasound in 5 days 7 days might be of value to exclude proximal propagation from a non-visualized calf vein. Electronically signed by: Flako Dhaliwal MD 06/28/2025 01:00 PM EDT Dictated By: Flako Dhaliwal MD Signed By: <Electronically signed by Flako Dhaliwal MD in OV> 06/28/25 1300 DD/ 1200 TD/TT: 06/28/25 1224 Garment Cutter: NANCY Procedure Note Donotuseinterpreter, Image - 06/28/2025 [place] [address] Ultrasound Report Signed Patient: Iona Tobias#: [id number] 7 : 6Acct:[id number] Age/Sex: 70 / MADM Date: 06/28/25 Loc: HO.ED Attending Dr: Ordering Physician: Rahel Jiménez Date of Service: 06/28/25 Procedure(s): US venous duplex LE LT Accession Number(s): [id number] cc: Corey Canseco MD; Rahel Jiménez Reason for Exam: recent travel LLE pain r/o DVT EXAMINATION: US TRIPLEX LOWER EXTREMITY, LEFT CLINICAL INFORMATION: [Pain COMPARISON: None available. TECHNIQUE: Color-flow triplex imaging with spectral analysis and compression Doppler were performed on the left lower extremity. FINDINGS: Examination limited due to body habitus. Limited visualization of the distal superficial femoral, peroneal and posterior tibial veins. Respiratory variation, normal compression and augmented flow are noted throughout the left lower extremity. The visualized common femoral vein, proximal and mid portions of the superficial femoral vein, profunda femoral vein, popliteal vein show no evidence of deep venous thrombosis. Limited visualization/evaluation of the peroneal and posterior tibial veins. There is no Fuentes's cyst. Subcutaneous soft tissue edema in the mid to distal thigh, calf. US/US venous duplex LE LT IMPRESSION: No evidence of deep venous thrombosis involving the left lower extremity from the common femoral vein to the popliteal vein. Of note, the distal superficial femoral vein in the calf veins are not well visualized. Subcutaneous soft tissue edema in the mid to distal thigh and calf. If the patient's symptoms persist, followup ultrasound in 5 days 7 days might be of value to exclude proximal propagation from a non-visualized calf vein. Electronically signed by: Flako Dhaliwal MD 06/28/2025 01:00 PM EDT Dictated By: Flako Dhaliwal MD Signed By: <Electronically signed by Flako Dhaliwal MD in OV> 06/28/25 1300 DD/ 1200 TD/TT: 06/28/25 1224 Garment Cutter: NANCY us [facility] External Provider CV VASC ULAR PROCEDURES Final Result [facility] [address] [place] [address] * High Sensitivity Troponin I (06/28/2025 11:53 AM EDT) [facility] TROPONIN I HIGH SENSITIVITY <2.7 <3.5 - 35.0 ng/L [facility] Comment:The [place] high sens itivity Troponin-I results should beused in conjunction with other diagnostic information suchas ECG, clinical observations and information, and patientsymptoms to aid in the diagnosis of [place]. 06/28/2025 11:5 3 AM EDT 06/28/2025 11:56 AM EDT Generic External Data Provider LAB BLOOD ORDERAB LES Final Result Performing Organization Address [facility] Co de Phone Number [facility] [address] [place] [address] [phone] * Magnesium (06/28/2025 11:53 AM EDT) [facility] Magnesium 2.0 1.6 - 2.6 mg/dL [facility] 06/28/2025 11:5 3 AM EDT 06/28/2025 11:56 AM EDT Generic External Data Provider LAB BLOOD ORDERAB LES Final Result Performing Organization Address [facility] Co de Phone Number [facility] [address] [place] [address] [phone] * (ABNORMAL) Comprehensive Metabolic Panel (06/28/2025 11:53 AM EDT) [facility] Sodium 139 135 - 145 mmol/L [facility] Potassium 4.4 3.3 - 5.1 mmol/L [facility] Chloride 108 96 - 108 mmol/L [facility] Carbon Dioxide 25 22 - 29 mmol/L [facility] Anion Gap 10(L) 12 - 20 [facility] Urea Nitrogen (BUN) 14 9 - 16 mg/dL [facility] Creatinine, Serum 0.83 0.5 - 1.4 mg/dL [facility] Creatinine Clr Calc Pharmacy 107.4 [facility] Comment:eGFR (calculated fro m the MDRD study equation) and eCrCl(calculated from the Cockcroft-Gault equation) are based ondifferent parameters and may not yield comparable results.If eCrCl result is absurd, please check patient'sheight/weight. Estimated Glomerular Filt Rate >60 [facility] Comment:Chronic Kidney Disea se: Estimated GFR < 60 mL/min/1.16p7Pwkgix Kidney Disease: Estimated GFR < 15 mL/min/1.73m2 Glucose 154(H) 60 - 115 mg/dL [facility] Calcium 9.1 8.4 - 10.2 mg/dL [facility] Bilirubin, Total 0.5 0.0 - 1.0 mg/dL [facility] Aspartate Amino Transferase 30 5 - 37 U/L [facility] Alanine Aminotransferase 31 0 - 40 U/L [facility] Total Protein 7.2 6.5 - 8.0 g/dL [facility] Albumin Level 4.1 3.5 - 5.0 g/dL [facility] Alkaline Phosphatase 95 39 - 117 U/L [facility] 06/28/2025 11:5 3 AM EDT 06/28/2025 11:56 AM EDT us Generic External Data Provider LAB BLOOD ORDERAB LES Final Result [facility] [address] [place] [address] [phone] * (ABNORMAL) CBC auto differential (06/28/2025 11:53 AM EDT) White Blood Count 6.0 4.8 - 10.8 X10*3/uL [facility] Red Blood Count 5.40 4.60 - 5.80 X10*6/uL [facility] Hemoglobin 15.4 14.0 - 18.0 g/dl [facility] Hematocrit 47.5 42.0 - 52.0 % [facility] Mean Corpuscular Volume 88.0 80.0 - 98.0 fL [facility] Mean Corpuscular Hemoglobin 28.5 27.0 - 33.0 pg [facility] Mean Corpuscular HGB Conc 32.4 31.0 - 36.0 g/dl [facility] Red Cell Distribution Width 14.9 11.0 - 16.0 % [facility] Platelet Count 155(L) 160 - 400 X10*3/uL [facility] Mean Platelet Volume 8.9(L) 9.4 - 12.4 fL [facility] Neutrophils Percent Auto 71.8 45 - 73 % [facility] Imm Gran Pct Auto 0.5(H) 0.0 - 0.4 % [facility] Lymphocytes Percent Auto 16.8(L) 20 - 40 % [facility] Monocytes Percent Auto 8.6 2 - 11 % [facility] Eosinophils Percent Auto 2.0 0 - 4 % [facility] Basophils Percent Auto 0.3 0 - 2 % [facility] NRBC Pct Auto 0.0 0.0 - 0.2 /100WBC [facility] Neutrophils Absolute Auto 4.3 2.0 - 8.3 x10*3/uL [facility] Imm Gran Abs Auto 0.03 0.00 - 0.03 X10*3/uL [facility] Lymphocytes Absolute Auto 1.0(L) 1.2 - 4.9 X10*3/uL [facility] Monocytes Absolute Auto 0.5 0.1 - 1.2 X10*3/uL [facility] Eosinophils Absolute Auto 0.1 0.0 - 0.4 X10*3/uL [facility] Basophils Absolute Auto 0.0 0.0 - 0.2 X10*3/uL [facility] NRBC Abs Auto 0.000 0.0 - 0.012 X10*3/uL [facility] 06/28/2025 11:5 3 AM EDT 06/28/2025 11:56 AM EDT us Generic External Data Provider LAB BLOOD ORDERAB LES Final Result [facility] [address] [place] [address] [phone] documented in this encounter Visit Diagnoses Not on filedocumented in this encounter Additional Health Concerns Assessment Noted Time PHQ-9 Depression Total Score: 3 05/29/20 25 9:22 AM EDT documented as of this encounter Care Teams Senior Media Buyer Relationship Specialty Start Date End Date Corey Canseco MD [address] [place] [phone] PCP - General Internal Medicine 09/09/19 documented as of this encounter
--- OUTSIDE RECORDS SUMMARY | 2025-07-03 09:07 | XMS_ITS | Encounter Summary ---
Author Organization [employer] Address [address] [facility] [address] [place] [address] Care Team Providers Care Certified Maintenance Welder Name Role Phone Corey Canseco MD Primary Care Prov ider Reason for Visit * Reason Comments Med Refill Encounter Details Date Type Department Care Team (Late st Contact Info) Description 04/05/2023 Refill [facility] [address] [place] [address] Corey Canseco MD [address] [place] [address] Mixed hyperlipidemia Social History Tobacco Use Types [...] documented as of this encounter Care Teams Certified Maintenance Welder Relationship Specialty Start Date End Date Corey Canseco MD [address] [place] [phone] PCP - General Internal Medicine 09/09/19 documented as of this encounter
--- OUTSIDE RECORDS SUMMARY | 2025-07-03 09:07 | XMS_ITS | Clinical Summary ---
Author Organization [employer] Address [address] [place] [address] Care Team Providers Care Office Chair Assembler Name Role Phone Corey Canseco MD [...] complication, without long-term current use of insulin ([facility]) 1 kit 3 times daily. 1 kit Active glucose blood (Accu-Chek Guide Test) test stripIndications: Type 2 diabetes mellitus without complication, without long-term current use of insulin ([facility]) 1 each by Other route 3 times daily. 270 each 3 025 2025 Active Accu-Chek Softclix Lancets lancetsIndication s:Type 2 diabetes mellitus without complication, without long-term current use of insulin ([facility]) Use as instructed 100 each 12 025 [...] MORNING AND EVENING 60 tablet 3 Active cyanocobalamin (Vitamin B-12) 1000 MCG tabletIndications [...] Mets >4 Blood work done today at [facility] Told to continue oral antyhypertensives [...] (03/07/2024 2:26 PM EDT): Will refer to [facility] Assessment & Plan (11/30/2023 10:07 PM EDT): Will refer to gi for evalaution, refer constantly having mild stool incontinence, no bleeding Atrial fibrillation ([facility]/HCC) 02/24/2023 Assessment & Plan (04/21/2025 10:31 AM [...] in treatment. PLAN: 1. Follow up with [facility]: Recommended for follow-up: During AUD appt 2. [...] sobriety goal. PLAN: 1. Follow up with [facility]: Recommended for follow-up: 08/27/24 at 9am 2. 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 At this time Olive Tobias meets criteria for Visit Diagnoses: Problem List Items Addressed This Visit Other Alcohol abuse RUMA (generalized anxiety disorder) Patient ready to address current needs Yes Strengths include willing to continue to be engage with [facility] PLAN: 1. Follow up with [facility]: Recommended for follow-up: 07/02/23 at 9:30 am [...] in treatment. PLAN: 1. Follow up with [facility]: Recommended for follow-up: During AUD appt 2. [...] as patient requested and discussed with his popcorn candy maker, discussed with patient risk vs benefits, follow [...] DEPARTMENT Provider, Generic External Data 06/23/2025 Refill [facility] [address] [place] [address] Corey Canseco MD Primary hypertension 2025 Refill [facility] [address] [place] [address] Cliff Damon MD Vitamin B 12 deficiency; Vitamin D deficiency 05/29/2025 Travel 05/27/2025 Refill [facility] [address] [place] [address] Corey Canseco MD Mixed hyperlipidemia 04/30/2025 Refill [facility] [address] [place] [address] Corey Canseco MD Pain 04/21/2025 8:45 AM EDT Office Visit [facility] [address] [place] [address] Corey Canseco MD Type 2 diabetes mellitus without complication, without long-term current use of insulin ([facility]) (Primary Dx); Atrial fibrillation, unspecified type ([facility]); Body mass index (BMI) 45.0-49.9, adult ([facility]); Primary hypertension 04/21/2025 Telephone [facility] [address] [facility] [place] [address] Corey Canseco MD 04/21/2025 Orders Only [facility] [address] [place] [address] Corey Canseco MD 04/21/2025 Telephone [facility] [address] [place] [address] Corey Canseco MD Med Refill 04/21/2025 Travel 04/21/2025 Refill [facility] [address] [place] [address] Corey Canseco MD 04/20/2025 Travel 04/15/2025 Refill [facility] [address] [place] [address] Corey Canseco MD Type 2 diabetes mellitus without complication, without long-term current use of insulin ([facility]) from Last 3 Months Immunizations Immunization Administration [...] Screening 11/02/2025 11/02/2024 Dental X-Ray: Bitewings 11/03/2025 11/02/19, 04/15/2024, 09/16/2023, Additional history exists Eye Exam [...] Recently Relevant to Health Maintenance Results * Lower Extremity Venous Duplex (06/28/2025 12:00 PM EDT) 06/28/2025 12:0 0 PM EDT Narrative [facility] - 06/28/2025 1:03 PM EDT [address] [address] Ultrasound Report Signed Patient: Olive Tobias MR#: [id number] 7 : 1955 Acct:[id number] Age/Sex: 70 / M ADM Date: 06/28/25 Loc: .ED Attending Dr: Ordering Physician: Rahel Jiménez Date of Service: 06/28/25 Procedure(s): US venous duplex LE LT Accession Number(s): [id number] cc: Corey Canseco MD; Rahel Jiménez Reason [...] 06/28/25 1300 DD/ 1200 TD/TT: 06/28/25 1224 Stonework Tracer: NANCY Procedure Note Donotuseinterpreter, Image - 06/28/[address] [address] Ultrasound Report Signed Patient: Iona Tobias#: [id number] 7 : 6Acct:[id number] Age/Sex: 70 / MADM Date: 06/28/25 Loc: HO.ED Attending Dr: Ordering Physician: Rahel Jiménez Date of Service: 06/28/25 Procedure(s): US venous duplex LE LT Accession Number(s): [id number] cc: Corey Canseco MD; Rahel Jiménez Reason [...] 06/28/25 1300 DD/ 1200 TD/TT: 06/28/25 1224 Stonework Tracer: NANCY [facility] External Provider CV VASC ULAR PROCEDURES Final Result Performing Organization Address City/[facility]/ZIP Co de Phone Number [facility] [address] [place] [address] * High Sensitivity Troponin I (06/28/2025 11:53 AM EDT) [facility] TROPONIN I HIGH SENSITIVITY <2.7 <3.5 - 35.0 ng/L [facility] Comment:The [place] high sens itivity Troponin-I results should beused in conjunction with other diagnostic information suchas ECG, clinical observations and information, and patientsymptoms to aid in the diagnosis of NV. 06/28/2025 11:5 3 AM EDT 06/28/2025 11:56 AM EDT Generic External Data Provider LAB BLOOD ORDERAB LES Final Result Performing Organization Address [facility] Co de Phone Number [facility] [address] [place] [phone] * (ABNORMAL) CBC auto differential (06/28/2025 11:53 AM EDT) [facility] White Blood Count 6.0 4.8 - 10.8 X10*3/uL [facility] Red Blood Count 5.40 4.60 - 5.80 X10*6/uL [facility] Hemoglobin 15.4 14.0 - 18.0 g/dl [facility] Hematocrit 47.5 42.0 - 52.0 % [facility] Mean Corpuscular Volume 88.0 80.0 - 98.0 fL [facility] Mean Corpuscular Hemoglobin 28.5 27.0 - 33.0 pg [facility] Mean Corpuscular HGB Conc 32.4 31.0 - 36.0 g/dl [facility] Red Cell Distribution Width 14.9 11.0 - 16.0 % [facility] Platelet Count 155(L) 160 - 400 X10*3/uL [facility] Mean Platelet Volume 8.9(L) 9.4 - 12.4 fL [facility] Neutrophils Percent Auto 71.8 45 - 73 % [facility] Imm Gran Pct Auto 0.5(H) 0.0 - 0.4 % [facility] Lymphocytes Percent Auto 16.8(L) 20 - 40 % [facility] Monocytes Percent Auto 8.6 2 - 11 % [facility] Eosinophils Percent Auto 2.0 0 - 4 % [facility] Basophils Percent Auto 0.3 0 - 2 % [facility] NRBC Pct Auto 0.0 0.0 - 0.2 /100WBC [facility] Neutrophils Absolute Auto 4.3 2.0 - 8.3 x10*3/uL [facility] Imm Gran Abs Auto 0.03 0.00 - 0.03 X10*3/uL [facility] Lymphocytes Absolute Auto 1.0(L) 1.2 - 4.9 X10*3/uL [facility] Monocytes Absolute Auto 0.5 0.1 - 1.2 X10*3/uL [facility] Eosinophils Absolute Auto 0.1 0.0 - 0.4 X10*3/uL [facility] Basophils Absolute Auto 0.0 0.0 - 0.2 X10*3/uL [facility] NRBC Abs Auto 0.000 0.0 - 0.012 X10*3/uL [facility] 06/28/2025 11:5 3 AM EDT 06/28/2025 11:56 AM EDT us Generic External Data Provider LAB BLOOD ORDERAB LES Final Result [facility] [address] [place] [address] [phone] * Magnesium (06/28/2025 11:53 AM EDT) Magnesium 2.0 1.6 - 2.6 mg/dL [facility] 06/28/2025 11:5 3 AM EDT 06/28/2025 11:56 AM EDT us Generic External Data Provider LAB BLOOD ORDERAB LES Final Result [facility] [address] [place], [place] [phone] * (ABNORMAL) Comprehensive Metabolic Panel (06/28/2025 11:53 AM EDT) Pathologist [facility] Sodium 139 135 - 145 mmol/L [facility] Potassium 4.4 3.3 - 5.1 mmol/L [facility] Chloride 108 96 - 108 mmol/L [facility] Carbon Dioxide 25 22 - 29 mmol/L [facility] Anion Gap 10(L) 12 - 20 [facility] Urea Nitrogen (BUN) 14 9 - 16 mg/dL [facility] Creatinine, Serum 0.83 0.5 - 1.4 mg/dL [facility] Creatinine Clr Calc Pharmacy 107.4 [facility] Comment:eGFR (calculated fro m the MDRD study equation) and eCrCl(calculated from the Cockcroft-Gault equation) are based ondifferent parameters and may not yield comparable results.If eCrCl result is absurd, please check patient'sheight/weight. Estimated Glomerular Filt Rate >60 [facility] Comment:Chronic Kidney Disea se: Estimated GFR < 60 mL/min/1.23t3Drwqze Kidney Disease: Estimated GFR < 15 mL/min/1.73m2 Glucose 154(H) 60 - 115 mg/dL [facility] Calcium 9.1 8.4 - 10.2 mg/dL [facility] Bilirubin, Total 0.5 0.0 - 1.0 mg/dL [facility] Aspartate Amino Transferase 30 5 - 37 U/L [facility] Alanine Aminotransferase 31 0 - 40 U/L [facility] Total Protein 7.2 6.5 - 8.0 g/dL [facility] Albumin Level 4.1 3.5 - 5.0 g/dL [facility] Alkaline Phosphatase 95 39 - 117 U/L [facility] 06/28/2025 11:5 3 AM EDT 06/28/2025 11:56 AM EDT us Generic External Data Provider LAB BLOOD ORDERAB LES Final Result Performing Organization Address City/State/[facility] Co de Phone Number [facility] [address] [place] [address] [phone] * XR Lumbar Spine Complete 4+ Views (04/24/2025 12:25 PM EDT) Anatomical Region Laterality Modality Spine, L-spine Radiographic Kristi ging 04/24/2025 12:2 5 PM EDT Narrative 04/24/2025 2:42 PM EDT [facility] [address] [place] [address] XRay Report Signed Patient: Olive Tobias MR#: [id number] 7 : 1955 Acct:[id number] Age/Sex: 69 / M ADM Date: 04/24/25 Loc: HO.HOSX Attending Dr: Bennie HUI Ordering Physician: Bennie Morales Date of Service: 04/24/25 Procedure(s): XR lumbar spine 4V min Accession Number(s): [id number] cc: Corey Canseco MD; Bennie Morales EXAMINATION: [...] 04/24/25 1440 DD/ 1225 TD/TT: 04/24/25 1329 Stonework Tracer: Procedure Note Donotuseinterpreter, Image - 04/24/2025 [facility] [address] [place] [address] XRay Report Signed Patient: Iona Tobias#: [id number] 7 : 6Acct:[id number] Age/Sex: 69 / MADM Date: 04/24/25 Loc: HO.HOSX Attending Dr: Bennie HUI Ordering Physician: Bennie Morales Date of Service: 04/24/25 Procedure(s): XR lumbar spine 4V min Accession Number(s): [id number] cc: Corey Canseco MD; Bennie Morales EXAMINATION: [...] 04/24/25 1440 DD/ 1225 TD/TT: 04/24/25 1329 Stonework Tracer: [facility] External Provider IMG XR PROCEDURES Final Result * POCT Glucose (04/21/2025 10:27 AM EDT) Glucose Blood, POC 158 60 - 200 mg/dL QC Media Lot # [id number] Lot# Expiration Date ,640 Comment:random Blood Capillary blood specimen / Unknown 04/21/2025 10:27 AM EDT Corey Carcamo MD POINT OF CARE TEST ENTER/EDIT ORDERABLES Final Result * (ABNORMAL) POCT HGB A1C (04/21/2025 10:26 AM EDT) Hemoglobin A1C 6.6(A) 4.0 - 5.7 % QC Media Lot # [id number] Lot# Expiration Date 136,174 Blood 04/21/2025 10:2 6 AM EDT Corey Carcamo MD POINT OF CARE TEST ENTER/EDIT ORDERABLES Final Result * (ABNORMAL) Lipid Panel, Standard (12/02/2024 10:11 AM EDT) Triglycerides 114 <150 mg/dL [facility] Comment:Desirable Triglyceri de: less than 150 mg/dLBorderline High Triglyceride 150-199 mg/dLHigh Triglyceride: 200-499 mg/dLVery High Triglyceride: greater than or equal to 5OO mg/dL Cholesterol 119 <200 mg/dL [facility] Comment:Desirable Cholestero l: less than 200 mg/dLBorderline High Cholesterol: 200-239 mg/dLHigh Cholesterol: greater than 239 mg/dL LDL Cholesterol Calculated 69 <100 mg/dL [facility] Comment:Desirable LDL: less than 100 mg/dLNear Optimal/Above Optimal LDL: 110- 129 mg/dLBorderline High LDL: 130-159 mg/dLHigh LDL: 160-189 mg/dLVery High LDL: greater than or equal to 190 mg/dL HDL Cholesterol 28(L) >40 mg/dL [facility] Comment:Desirable HDL: great er than 40 mg/dL Note: This HDL assay may give artificially low results in patients with liver disease. Blood Venous blood specimen / Unknown 12/02/2024 10:11 AM EDT 12/02/2024 2:05 PM EDT Corey Carcaom MD LAB BLOOD ORDERABL ES Final Result [facility] [address] [place] [phone] * Diabetes Eye Exam (11/10/2024 9:37 AM EST) Historical Provider HEALTH MAINTENANCE Final Result * Colonoscopy (04/10/2023 12:03 PM EDT) [facility] Provider HEALTH MAINTENANCE Final Result * Hepatitis C Antibody with Reflex to HCV, RNA, Quantitative, Real-Time PCR (09/24/2022 10:33 AM EST) Hepatitis C Antibody NON-REACT MARK NON-REACT MARK [facility] [place] [facility] Index <0.02 <1.00 [facility] [place] [facility] Comment: HCV antibody was non-reactive. There is no laboratory evidence of HCV infection. In most cases, no further action is required. However, if recent HCV exposure is suspected, a test for HCV RNA (test code 89846) is suggested. For additional information please refer to http://education.Volance.Proximus/faq/HWB48x9 (This link is being provided for informational/ educational purposes only.) 09/24/2022 10:3 3 AM EST 09/24/2022 10:33 AM EST Narrative [facility] - 09/24/2022 9:25 PM EST FASTING:NO FASTING: NO Corey Carcamo MD LAB BLOOD ORDERABL ES Final Result [facility] [address] [facility], [place] [address] [facility] [address] [facility], ([address]) [place] [address] from Last 3 Months or Most Recently Relevant to Health Maintenance Insurance [facility] MEDICARE REPLACEMENT DENTAL [facility] Care Teams Office Chair Assembler Relationship Specialty Start Date End Date Corey Canseco MD [address] [place] [phone] PCP - General Internal Medicine 09/09/19
--- OUTSIDE RECORDS SUMMARY | 2025-07-03 09:07 | XMS_ITS | Encounter Summary ---
Author Organization [employer] Address [address] [address] [address] [facility] 7t [place] [address] Care Team Providers Care Laboratory Tech Name Role Phone Corey Canseco MD Primary Care Prov ider Encounter Details Date Type Department Care Team (Late st Contact Info) Description 11/11/2024 Orders Only [facility] [address] [place] [address] Provider, MD Марина Social History Tobacco Use [...] documented as of this encounter Care Teams Laboratory Tech Relationship Specialty Start Date End Date Corey Canseco MD [address] [place] [phone] PCP - General Internal Medicine 09/09/19 documented as of this encounter
--- OUTSIDE RECORDS SUMMARY | 2025-07-03 09:07 | XMS_ITS | Encounter Summary ---
Author Organization [employer] Address [address] [facility] 7[address] [place] [address] Care Team Providers Care Associate Media Director Name Role Phone Corey Canseco MD Primary Care Prov ider Encounter Details Date Type Department Care Team ([facility] st Contact Info) Description 04/21/2025 Orders Only [facility] [address] [place] [address] Corey Canseco MD [address] [place] [address] Social History Tobacco Use Types Packs/Day Years [...] PM EDT Narrative 04/24/2025 2:42 PM EDT [facility] [address] [place] [address] XRay Report Signed Patient: Olive Tobias MR#: [id number] 7 : 1955 Acct:[id number] Age/Sex: 69 / M ADM Date: 04/24/25 Loc: HO.HOSX Attending Dr: Bennie HUI Ordering Physician: Bennie Morales Date of Service: 04/24/25 Procedure(s): XR lumbar spine 4V min Accession Number(s): [id number] cc: Corey Canseco MD; Bennie Morales EXAMINATION: [...] 04/24/25 1440 DD/ 1225 TD/TT: 04/24/25 1329 Pcu Rn: Procedure Note Donotuseinterpreter, Image - 04/24/2025 [facility] [address] [place] [address] Drive [address] [place] [address] XRay Report Signed Patient: Iona Tobias#: [id number] 7 : 6Acct:[id number] Age/Sex: 69 / MADM Date: 04/24/25 Loc: HO.HOSX Attending Dr: Bennie HUI Ordering Physician: Bennie Morales Date of Service: 04/24/25 Procedure(s): XR lumbar spine 4V min Accession Number(s): [id number] cc: Corey Canseco MD; Bennie Morales EXAMINATION: [...] 04/24/25 1440 DD/ 1225 TD/TT: 04/24/25 1329 Pcu Rn: [facility] External Provider IMG XR PROCEDURES Final Result documented in this encounter Visit Diagnoses Not on filedocumented in this encounter Additional Health Concerns Assessment Noted Time PHQ-9 Depression Total Score: 0 12/01/19 25 9:07 AM EDT documented as of this encounter Care Teams Associate Media Director Relationship Specialty Start Date End Date Corey Canseco MD [address] [place] [phone] PCP - General Internal Medicine 09/09/19 documented as of this encounter
--- OUTSIDE RECORDS SUMMARY | 2025-07-03 09:07 | XMS_ITS | Encounter Summary ---
Author Organization [employer] Address [address] [place] [address] Care Team Providers Care Mis Manager Name Role Phone Corey Canseco MD Primary Care Prov ider Encounter Details Date Type Department Care Team ([facility] st Contact Info) Description 09/30/2023 Abstract [facility] [address] [place] [address] Maryana Penn, DDS [address] [place] [address] Social History Tobacco Use Types Packs/Day Years [...] documented as of this encounter Care Teams Mis Manager Relationship Specialty Start Date End Date Corey Canseco MD [address] [place] [phone] PCP - General Internal Medicine 09/09/19 documented as of this encounter
--- OUTSIDE RECORDS SUMMARY | 2025-07-03 09:07 | XMS_ITS | Encounter Summary ---
Author Organization [employer] Address [address] [facility] 7 [place] [address] Care Team Providers Care Overlock Elastic Attacher Name Role Phone Corey Canseco MD Primary Care Prov ider Reason for Visit * Reason Comments Med Refill Encounter Details Date Type Department Care Team (Late st Contact Info) Description 03/20/2023 Refill [facility] [address] [place] [address] Corey Canseco MD [address] [place] [address] Social History Tobacco Use Types Packs/Day Years [...] documented as of this encounter Care Teams Overlock Elastic Attacher Relationship Specialty Start Date End Date Corey Canseco MD [address] [place] [phone] PCP - General Internal Medicine 09/09/19 documented as of this encounter
== END 2025-07-03 09:05 | disposition home or self-care (01) ==
LOC: HO.HGI 08:36
PROVIDERS: PCP Internal Medicine; Visit Provider Nurse Practitioner Family
DX: K64.8 Other hemorrhoids (principal); K52.9 Noninfective gastroenteritis and colitis, unspecified
CPT/HCPCS: 99213

== ENCOUNTER → 2025-07-03 08:36 | Outpatient (BNVA) | payer MEDICARE, SELFPAY | PROVIDERS: PCP Internal Medicine; Visit Provider Nurse Practitioner Family | DX: K64.8 Other hemorrhoids (principal); K52.9 Noninfective gastroenteritis and colitis, unspecified | CPT/HCPCS: 99212 ==

== ENCOUNTER 2025-07-04 11:03 | Outpatient (REF) | payer MEDICARE, SELFPAY ==
--- OUTSIDE RECORDS SUMMARY | 2025-07-04 09:30 | XMS_ITS | Encounter Summary ---
Author Organization [employer] Address [address] [facility] [address] 7t [place] [address] Care Team Providers Care Water Trainer Name Role Phone Corey Canseco MD Primary Care Prov ider Reason for Visit * Reason Comments Cellulitis leg Encounter Details Date Type Department Care Team (Late st Contact Info) Description 07/04/2025 9:30 AM EDT Office Visit [facility] CHC MED & PEDS 505 [place] [address] Devi Jones MD 505 [place] [address] Left leg cellulitis (Primary Dx); Type 2 diabetes mellitus with other diabetic kidney complication, with long-term current use of insulin (HCC); Encounter for immunization Social History Tobacco Use Types Packs/Day Years [...] your housing situation today? I have dino sing 11/30/[address] you li [...] Sign Reading Time Taken Comments Blood Pressure 124/66 07/04/2025 9:46 AM EDT Pulse 72 07/04/2025 9:46 AM EDT Temperature 36.2 C (97.1 F) 07/04/2025 9:46 AM EDT Respiratory Rate 20 07/04/2025 9:46 AM EDT Oxygen Saturation - - Inhaled Oxygen Concentration - - Weight 132 kg (291 lb) 07/04/2025 9:46 AM EDT Height 170.2 cm (5' 7 ) 07/04/2025 9:46 AM EDT Body Mass Index 45.58 07/04/2025 9:46 AM EDT documented in this encounter Progress Notes * Devi Jones MD - 07/04/2025 9:30 AM EDT Images from the original note were not included. Subjective Patient ID: Olive Tobias is a 70 y.o. male who presents for No chief complaint on file.. Leg Pain There was no injury mechanism. The pain is present in the left leg. The pain is at a severity of 6/10. The pain is moderate. The pain has been Constant since onset. Associated symptoms include an inability to bear weight. The symptoms are aggravated by movement and weight bearing. He has tried acetaminophen and elevation for the symptoms. The treatment provided mild relief. Review of Systems Constitutional: Negative. Respiratory: Negative. Cardiovascular: Negative. Gastrointestinal: Negative. Genitourinary: Negative. Objective Physical Exam Constitutional: Appearance: Normal appearance. Cardiovascular: Rate and Rhythm: Normal rate and regular rhythm. Pulmonary: Effort: Pulmonary effort is normal. Breath sounds: Normal breath sounds. Skin: Findings: Erythema present. Comments: +Tender Neurological: General: No focal deficit present. Mental Status: He is alert. Psychiatric: Mood and Affect: Mood normal. Behavior: Behavior normal. Assessment/Plan Diagnoses and all orders for this visit: Left leg cellulitis Comments: Started On Keflex BID for 7 days Advised leg elevation.Area marked for follow up Tylenol as needed Orders: - Tick ID W/reflex to Lyme Disease DNA; Future Type 2 diabetes mellitus with other diabetic kidney complication, with long-term current use of insulin ([facility]) - POCT Glucose Other orders - cephalexin (Keflex) 500 MG capsule; Take 1 capsule (500 mg) by mouth 2 times daily for 7 days. documented in this encounter Plan of Treatment Upcoming Encounters Date Type Department Care Team (Late st Contact Info) Description 07/05/2025 9:00 AM EDT Office Visit [facility] ADULT DENTAL [address] [place] [address] Salma Valadez [address] [place] [address] Scheduled Orders Name Type Priority Associated Diagnoses Orde r Schedule Tick ID W/reflex to Lyme Disease DNA Lab Routine Left leg cellulitis Expected: 07/04/2025 (Approximate), Expires: 07/04/2026 documented as of this encounter Procedures Procedure Name Priority Date/Time Associated Diagnosis Comments POCT GLUCOSE Routine 07/04/2025 9:47 AM EDT Type 2 diabetes mellitus with other diabetic kidney complication, with long-term current use of insulin (HCC) documented in this encounter Results * (ABNORMAL) POCT Glucose (07/04/2025 9:47 AM EDT) Glucose Blood, POC 281(A) 60 - 200 mg/dL QC Media Lot # [id number] Lot# Expiration Date Blood Capillary blood specimen / Unknown 07/04/2025 9:47 AM EDT Devi Jones MD POINT OF CARE TEST ENTER/EDIT OR DERABLES Final Result documented in this encounter Visit Diagnoses Diagnosis Left leg cellulitis- Primary Type 2 diabetes mellitus with other diabetic kidney complication, with long-term current use of insulin (HCC) Encounter for immunization documented in this encounter Additional Health Concerns Assessment Noted Time PHQ-9 Depression Total Score: 3 05/29/20 25 9:22 AM EDT documented as of this encounter Care Teams Water Trainer Relationship Specialty Start Date End Date Corey Canseco MD [address] [place] [phone] PCP - General Internal Medicine 09/09/19 documented as of this encounter
--- OUTSIDE RECORDS SUMMARY | 2025-07-04 13:52 | XMS_ITS | Encounter Summary ---
Author Organization [employer] Address [address] [place] [address] 7 [place] [address] Care Team Providers Care Solder Making Laborer Name Role Phone Corey Canseco MD Primary Care Prov ider Reason for Visit * Reason Comments Med Refill Encounter Details Date Type Department Care Team (Late Contact Info) Description 03/20/2023 Refill [facility] MED & PEDS 505 [place] [address] Corey Canseco MD 505 [place] [address] Social History Tobacco Use Types Packs/Day Years [...] Department Care Team (Late Contact Info) Description 07/05/2025 9:00 AM EDT Office Visit [facility] ADULT DENTAL [address] [place] [address] Salma Valadez [address] [place] [address] documented as of this encounter Visit Diagnoses Not on filedocumented in this encounter Additional Health Concerns Assessment Noted Time PHQ-9 Depression Total Score: 0 12/20/19 23 9:39 AM EDT documented as of this encounter Care Teams Solder Making Laborer Relationship Specialty Start Date End Date Corey Canseco MD [address] [place] [address] PCP - General Internal Medicine 09/09/19 documented as of this encounter
--- OUTSIDE RECORDS SUMMARY | 2025-07-04 13:52 | XMS_ITS | Encounter Summary ---
Author Organization [employer] Address [address] [facility] 7 [place] [address] Care Team Providers Care Cover Cutter Name Role Phone Corey Canseco MD Primary Care Prov ider Reason for Visit * Reason Comments Med Refill Encounter Details Date Type Department Care Team (Late Contact Info) Description 04/05/2023 Refill [facility] MED & PEDS [address] [place] [address] Corey Canseco MD 505 [place] [address] Mixed hyperlipidemia Social History Tobacco Use Types [...] Description 07/05/2025 9:00 AM EDT Office Visit [facility] ADULT DENTAL [address] [place] [address] Salma Valadez [address] [place] [address] documented as of this encounter Visit Diagnoses Diagnosis Mixed hyperlipidemia documented in this encounter Additional Health Concerns Assessment Noted Time PHQ-9 Depression Total Score: 0 12/20/19 23 9:39 AM EDT documented as of this encounter Care Teams Cover Cutter Relationship Specialty Start Date End Date Corey Canseco MD [address] [place] [address] PCP - General Internal Medicine 09/09/19 documented as of this encounter
--- OUTSIDE RECORDS SUMMARY | 2025-07-04 13:52 | XMS_ITS | Encounter Summary ---
Author Organization [employer] Address [address] [facility] [address] 7t [place] [address] Care Team Providers Care Service Order Expediter Name Role Phone Corey Canseco MD Primary Care Prov ider Encounter Details Date Type Department Care Team (Late st Contact Info) Description 12/25/2023 Orders Only [facility] MEDICINE [address] [place] [address] ProviderМарина MD Social History Tobacco Use Types [...] Description 07/05/2025 9:00 AM EDT Office Visit [facility] ADULT DENTAL [address] [place], [place] [phone] Salma Valadez [address] [place], [place] [phone] documented as of this encounter Procedures Procedure [...] AM EDT Narrative 01/14/2024 4:15 PM EDT [address] [address] [address] Scan Report Signed Patient: Olive Tobias MR#: [id number] 7 : 1955 Acct:[id number] Age/Sex: 68 / M ADM Date: 01/14/24 Loc: HO.CT Attending Dr: Jon Meza MD Ordering Physician: Jon Meza MD Date of Service: 01/14/24 Procedure(s): CT shoulder LT wo IV con Accession Number(s): [id number] cc: Corey Canseco MD; Jon Meza MD [...] in OV> 01/14/24 1612 DD/ 0815 TD/TT: Talent Advisor: NEREYDA Procedure Note Donotuseinterpreter, Image - 01/14/[address] [address] [address] Scan Report Signed Patient: Iona Tobias#: [id number] 7 : 1955cct:[id number] Age/Sex: 68 / MADM Date: 01/14/24 Loc: HO.CT Attending Dr: Jon Meza MD Ordering Physician: Jon Meza MD Date of Service: 01/14/24 Procedure(s): CT shoulder LT wo IV con Accession Number(s): [id number] cc: Corey Canseco MD; Jon Meza MD [...] in OV> 01/14/24 1612 DD/ 0815 TD/TT: Talent Advisor: NEREYDA [facility] External Provider IMG CT PROCEDURES Final Result * Hm Colonoscopy (04/10/2023 12:03 PM EDT) Historical Provider HEALTH MAINTENANCE Final Result documented in this encounter Visit Diagnoses Not on filedocumented in this encounter Additional Health Concerns Assessment Noted Time PHQ-9 Depression Total Score: 6 12/24/19 24 9:28 AM EDT documented as of this encounter Care Teams Service Order Expediter Relationship Specialty Start Date End Date Corey Canseco MD [address] [place] [address] PCP - General Internal Medicine 09/09/19 documented as of this encounter
--- OUTSIDE RECORDS SUMMARY | 2025-07-04 13:52 | XMS_ITS | Encounter Summary ---
Author Organization [employer] Address 75 [facility] 7t [place] [address] Care Team Providers Care Physicist Nuclear Name Role Phone Corey Canseco MD Primary Care Prov ider Encounter Details Date Type Department Care Team (Late st Contact Info) Description 11/11/2024 Orders Only [facility] [address] [place] [address] Provider, MD Марина Social History Tobacco Use [...] Upcoming Encounters Date Type Department Care Team ([facility] st Contact Info) Description 07/05/2025 9:00 AM EDT Office Visit [facility] ADULT DENTAL 505 [place] [address] Salma Valadez [address] [place], [place] [phone] documented as of this encounter Procedures Procedure Name Priority Date/Time Associated Diagnosis Comments DIABETES EYE EXAM Routine 11/10/2024 9:37 AM EST documented in this encounter Results * Hm Diabetes Eye Exam (11/10/2024 9:37 AM EST) Historical Provider HEALTH MAINTENANCE Final Result documented in this encounter Visit Diagnoses Not on filedocumented in this encounter Additional Health Concerns Assessment Noted Time PHQ-9 Depression Total Score: 10 024 9:32 AM EST documented as of this encounter Care Teams Physicist Nuclear Relationship Specialty Start Date End Date Corey Canseco MD 505 [place] [address] PCP - General Internal Medicine 09/09/19 documented as of this encounter
--- OUTSIDE RECORDS SUMMARY | 2025-07-04 13:53 | XMS_ITS | Encounter Summary ---
Author Organization [employer] Address [address] [place] [address] 7 [place] [address] Care Team Providers Care Athletic Field Custodian Name Role Phone Corey Canseco MD Primary Care Prov ider Reason for Referral * Imaging (Routine) - Closed Specialty Diagnoses / Procedures Referred By Contac t Referred To Contact Radiology Diagnoses Chronic left shoulder pain Procedures MR Shoulder w/o Contrast Left Corey Canseco MD [address] [place] [address] Phone: tel: fax: [address] Phone: tel: fax: Referral ID Status Reason Start Date Expiration Date Visits Re quested Visits Authorized [id number] Closed 12/02/2023 12/01/2024 1 1 Encounter Details Date Type Department Care Team (Late st Contact Info) Description 12/02/2023 Orders Only [facility] CHC MED & PEDS [address] [place] [address] Corey Canseco MD 505 [place] [address] Chronic left shoulder pain (Primary Dx) Social [...] Description 07/05/2025 9:00 AM EDT Office Visit [facility] ADULT DENTAL [address] [place] [address] Salma Valadez [address] [place] [address] Scheduled Orders Name Type Priority Associated [...] documented as of this encounter Care Teams Athletic Field Custodian Relationship Specialty Start Date End Date Corey Canseco MD [address] [place] [address] PCP - General Internal Medicine 09/09/19 documented as of this encounter
--- OUTSIDE RECORDS SUMMARY | 2025-07-04 13:53 | XMS_ITS | Encounter Summary ---
Author Organization [employer] Address 75 [facility] 7t [place] [address] Care Team Providers Care Airport Security Screener Name Role Phone Corey Canseco MD Primary Care Prov ider Encounter Details Date Type Department Care Team ([facility] st Contact Info) Description 04/21/2025 Orders Only [facility] CHC MED & PEDS [address] [place] [address] Corey Canseco MD [address] [place] [address] Social History Tobacco Use Types Packs/Day Years [...] Office Visit [facility] ADULT DENTAL [address] [place] [address] Salma Valadez [address] [place] [phone] documented as of this encounter Procedures Procedure Name Priority Date/Time Associated Diagnosis Comments XR LUMBAR SPINE COMPLETE 4+ VIEWS Routine 04/24/2025 12:25 PM EDT documented in this encounter Results * XR Lumbar Spine Complete 4+ Views (04/24/2025 12:25 PM EDT) Anatomical Region Laterality Modality Spine, L-spine Radiographic Kristi ging 04/24/2025 12:2 5 PM EDT Narrative 04/24/2025 2:42 PM EDT [facility] [address] [place] [address] XRay Report Signed Patient: Olive Tobias MR#: [id number] 7 : 1955 Acct:[id number] Age/Sex: 69 / M ADM Date: 04/24/25 Loc: HO.HOSX Attending Dr: Bennie HUI Ordering Physician: Bennie Morales Date of Service: 04/24/25 Procedure(s): XR lumbar spine 4V min Accession Number(s): [id number] cc: Corey Canseco MD; Bennie Morales EXAMINATION: [...] 04/24/25 1440 DD/ 1225 TD/TT: 04/24/25 1329 Energy Systems Engineer: Procedure Note Donotuseinterpreter, Image - 04/24/2025 [facility] [address] [place] [address] XRay Report Signed Patient: Iona Tobias#: [id number] 7 : 1955cct:[id number] Age/Sex: 69 / MADM Date: 04/24/25 Loc: HO.HOSX Attending Dr: Bennie HUI Ordering Physician: Bennie Morales Date of Service: 04/24/25 Procedure(s): XR lumbar spine 4V min Accession Number(s): [id number] cc: Corey Canseco MD; Bennie Morales EXAMINATION: [...] 04/24/25 1440 DD/ 1225 TD/TT: 04/24/25 1329 Energy Systems Engineer: [facility] External Provider IMG XR PROCEDURES Final Result documented in this encounter Visit Diagnoses Not on filedocumented in this encounter Additional Health Concerns Assessment Noted Time PHQ-9 Depression Total Score: 0 12/01/19 9:07 AM EDT documented as of this encounter Care Teams Airport Security Screener Relationship Specialty Start Date End Date Corey Canseco MD [address] [place] [address] PCP - General Internal Medicine 09/09/19 documented as of this encounter
--- OUTSIDE RECORDS SUMMARY | 2025-07-04 13:53 | XMS_ITS | Encounter Summary ---
Author Organization [employer] Address [address] [facility] [address] 7t [place] [address] Care Team Providers Care Reed Press Feeder Name Role Phone Corey Canseco MD Primary Care Prov ider Encounter Details Date Type Department Care Team ([facility] st Contact Info) Description 09/30/2023 Abstract [facility] ADULT DENTAL [address] [place] [address] Maryana Penn, DDS [address] [place] [address] Social History Tobacco Use Types Packs/Day Years [...] Description 07/05/2025 9:00 AM EDT Office Visit [facility] CHC ADULT DENTAL 505 [place] [address] Salma Valadez [address] [place] [phone] documented as of this encounter Visit Diagnoses Not on filedocumented in this encounter Additional Health Concerns Assessment Noted Time PHQ-9 Depression Total Score: 5 08/27/20 23 9:37 AM EST documented as of this encounter Care Teams Reed Press Feeder Relationship Specialty Start Date End Date Corey Canseco MD 505 [place] [address] PCP - General Internal Medicine 09/09/19 documented as of this encounter
--- OUTSIDE RECORDS SUMMARY | 2025-07-04 13:53 | XMS_ITS | Encounter Summary ---
Author Organization [employer] Address 75 [facility] 7t [place] [address] Care Team Providers Care Bed And Breakfast Operator Name Role Phone Corey Canseco MD Primary Care Prov ider Reason for Visit * Reason Onset Date Comments Med Refill 03/27/2025 Encounter Details Date Type Department Care Team (Late st Contact Info) Description 03/27/2025 Refill [facility] MED & PEDS [address] [place] [address] Corey Canseco MD 505 [place] [address] Social History Tobacco Use Types Packs/Day Years [...] Upcoming Encounters Date Type Department Care Team ([facility] st Contact Info) Description 07/05/2025 9:00 AM EDT Office Visit [facility] ADULT DENTAL [address] [place] [address] Salma Valadez [address] [place], [place] [phone] documented as of this encounter Visit Diagnoses Not on filedocumented in this encounter Additional Health Concerns Assessment Noted Time PHQ-9 Depression Total Score: 0 12/01/19 25 9:07 AM EDT documented as of this encounter Care Teams Bed And Breakfast Operator Relationship Specialty Start Date End Date Corey Canseco MD [address] [place] [address] PCP - General Internal Medicine 09/09/19 documented as of this encounter
--- OUTSIDE RECORDS SUMMARY | 2025-07-04 13:53 | XMS_ITS | Encounter Summary ---
Author Organization [employer] Address [address] [place] [address] 7 [place] [address] Care Team Providers Care Coke Production Heater Name Role Phone Corey Canseco MD Primary Care Prov ider Encounter Details Date Type Department Care Team (Latest Contact Info) Description 09/26/2019 Abstract [facility] CONVERSIONS Dental, Provider, DDS Social History [...] Description 07/05/2025 9:00 AM EDT Office Visit [facility] CHC ADULT DENTAL [address] [place] [address] Salma Valadez [address] [place] [address] documented as of this encounter Visit Diagnoses Not on filedocumented in this encounter Care Teams Coke Production Heater Relationship Specialty Start Date End Date Corey Canseco MD 505 [place] [address] PCP - General Internal Medicine 09/09/19 documented as of this encounter
--- OUTSIDE RECORDS SUMMARY | 2025-07-04 13:54 | XMS_ITS | Clinical Summary ---
Author Organization [employer] Address [address] [place] [address] Care Team Providers Care Sr. Pricing Analyst Name Role Phone Corey Canseco MD Primary [...] complication, without long-term current use of insulin ([facility]) 1 kit 3 times daily. 1 kit Active glucose blood (Accu-Chek Guide Test) test stripIndications: Type 2 diabetes mellitus without complication, without long-term current use of insulin ([facility]) 1 each by Other route 3 times daily. 270 each 3 025 2025 Active Accu-Chek Softclix Lancets lancetsIndication s:Type 2 diabetes mellitus without complication, without long-term current use of insulin ([facility]) Use as instructed 100 each 12 [...] MORNING AND EVENING 60 tablet 3 Active cephalexin (Keflex) 500 MG capsule Take 1 capsule (500 mg) by mouth 2 times daily for 7 days. 14 capsule 025 2024 Active cyanocobalamin (Vitamin B-12) 1000 MCG tabletIndications [...] Mets >4 Blood work done today at [facility] Told to continue oral antyhypertensives the [...] (03/07/2024 2:26 PM EDT): Will refer to [facility] Assessment & Plan (11/30/2023 10:07 PM EDT): Will refer to gi for evalaution, refer constantly having mild stool incontinence, no bleeding Atrial fibrillation (CMS/HCC) 02/24/2023 Assessment & Plan (04/21/2025 10:31 AM [...] for support, patient declined interest in exterminator therapy. At this time Olive Tobias [...] medical appts c. Continue to engage with [facility] for extra support. Hypertension 09/23/2021 Assessment & [...] as patient requested and discussed with his criminal defense lawyer, discussed with patient risk vs benefits, follow [...] organization. Date Type Department Care Team Description 07/04/2025 9:30 AM EDT Office Visit [facility] [address] [place] [address] Devi Jones MD Left leg cellulitis (Primary Dx); Type 2 diabetes mellitus with other diabetic kidney complication, with long-term current use of insulin (HCC); Encounter for immunization 07/04/2025 Travel 07/04/2025 Telephone [facility] [address] [place] [address] Corey Canseco MD Nurse Triage 06/28/2025 Orders Only GENERIC EXTERNAL DATA DEPARTMENT Provider, Generic External Data 06/23/2025 Refill [facility] [address] [place] [address] Corey Canseco MD Primary hypertension 2025 Refill [facility] [address] [place] [address] Cliff Damon MD Vitamin B 12 deficiency; Vitamin D deficiency 05/29/2025 Travel 05/27/2025 Refill [facility] [address] [place] [address] Corey Canseco MD Mixed hyperlipidemia 04/30/2025 Refill [facility] [address] [place] [address] Corey Canseco MD Pain 04/21/2025 8:45 AM EDT Office Visit [facility] [address] [place] [address] Corey Canseco MD Type 2 diabetes mellitus without complication, without long-term current use of insulin (CMS/HCC) (Primary Dx); Atrial fibrillation, unspecified type (CMS/HCC); Body mass index (BMI) 45.0-49.9, adult (CMS/HCC); Primary hypertension 04/21/2025 Telephone [facility] [address] [place] [address] Corey Canseco MD 04/21/2025 Orders Only [facility] [address] [place] [address] Corey Canseco MD 04/21/2025 Telephone [facility] [address] [place] [address] Corey Canseco MD Med Refill 04/21/2025 Travel 04/21/2025 Refill [facility] [address] [place] [address] Corey Canseco MD 04/20/2025 Travel 04/15/2025 Refill [facility] [address] [place] [address] Corey Canseco MD Type 2 diabetes mellitus without complication, without long-term current use of insulin (CMS/HCC) from Last 3 Months Immunizations Immunization Administration Dates Next Due Influenza High-dose Quadriva lent Preservative Free 06/11/2023,07/07/2022,06/26/2021 Influenza Injectable Quadriv alant Preservative Free IIV4 MDCK 06/26/2020 Influenza injectable quadriv alent preservative free 06/29/2019,06/08/2018,07/01/2016 Influenza, High Dose Seasona l, Preservative Free 07/04/2025,06/10/2024 Pfizer Covid-19 Vaccine 12+ 06/10/2024,0 01/07/2022,07/21/2021,11/15,10/26/2020 Pfizer [...] 20 07/04/2025 9:46 AM EDT Oxygen Saturation 98% 04/21/2025 8:55 AM EDT Inhaled Oxygen Concentration - - Weight 132 kg (291 lb) 07/04/2025 9:46 AM EDT Height 170.2 cm (5' 7 ) 07/04/2025 9:46 AM EDT Body Mass Index 45.58 07/04/2025 9:46 AM EDT Plan of Treatment Upcoming Encounters Date Type Department Care Team (Late st Contact Info) Description 07/05/2025 9:00 AM EDT Office Visit [facility] [address] [place] [address] Salma Valadez [address] [place] [phone] Health Maintenance Due Date Last Done Comments CT Colonography 1955 FIT DNA/Cologuard 1955 FIT 1955 FOBT 1955 Sigmoidoscopy 1955 Dental Oral Exam 10/17/2024 04/15/2024, 09/16/2023 Diabetes: Foot Exam 10/28/2024 10/28/2023, 10/28/2023, 10/28/2023, Additional history exists Dental Prophylaxis 05/03/2025 11/02/2024, 0 04/15/2024, 09/16/2023, Additional history exists COVID-19 Vaccine ( season) 2025 06/10/2024, 06/11/2023, 07/07/2022, Additional history exists Diabetes: Hemoglobin [...] Aged 60 years or older Completed 06/11/2023 Influenza Vaccine Completed 07/04/2025, , 06/11/2023, Additional history exists HIB Vaccines Aged Out [...] with long-term current use of insulin ([facility]) LOWER EXTREMITY VENOUS DUPLEX LEFT Routine 06/28/2025 [...] complication, without long-term current use of insulin ([facility]) POCT GLYCATED HEMOGLOBIN, TOTAL Routine 04/21/2025 10:26 [...] Recently Relevant to Health Maintenance Results * (ABNORMAL) POCT Glucose (07/04/2025 9:47 AM EDT) Only the most recent of2 resultswithin the time period is included. Pathologist [facility] Glucose Blood, POC 281(A) 60 - 200 mg/dL QC Media Lot # [id number] Lot# Expiration Date Blood Capillary blood specimen / Unknown 07/04/2025 9:47 AM EDT Devi Jones MD POINT OF CARE TEST ENTER/EDIT OR DERABLES Final Result * Lower Extremity Venous Duplex (06/28/2025 12:00 PM EDT) 06/28/2025 12:0 0 PM EDT Narrative [facility] - 06/28/2025 1:03 PM EDT [address] [address] Ultrasound Report Signed Patient: Olive Tobias MR#: [id number] 7 : 1955 Acct:[id number] Age/Sex: 70 / M ADM Date: 06/28/25 Loc: HO.ED Attending Dr: Ordering Physician: Rahel Jiménez Date of Service: 06/28/25 Procedure(s): US venous duplex LE LT Accession Number(s): [id number] cc: Corey Canseco MD; Rahel Jiménez Reason [...] 06/28/25 1300 DD/ 1200 TD/TT: 06/28/25 1224 Resident Services Coordinator: NANCY Procedure Note Donotuseinterpreter, Image - 06/28/[address] [address] Ultrasound Report Signed Patient: Iona Tobias#: [id number] 7 : 6Acct:[id number] Age/Sex: 70 / MADM Date: 06/28/25 Loc: HO.ED Attending Dr: Ordering Physician: Rahel Jiménez Date of Service: 06/28/25 Procedure(s): US venous duplex LE LT Accession Number(s): [id number] cc: Corey Casneco MD; Rahel Jiménez Reason for Exam: recent [...] Flako Dhaliwal MD 06/28/2025 01:00 PM EDT RP Dictated By: Flako Dhaliwal MD Signed By: <Electronically signed by Flako Dhaliwal MD in OV> 06/28/25 1300 DD/ 1200 TD/TT: 06/28/25 1224 Resident Services Coordinator: NANCY [facility] External Provider CV VASC ULAR PROCEDURES Final Result Performing Organization Address City/[facility]/ZIP Co de Phone Number [facility] [address] [place] [address] * High Sensitivity Troponin I (06/28/2025 11:53 AM EDT) [facility] TROPONIN I HIGH SENSITIVITY <2.7 <3.5 - 35.0 ng/L [facility] Comment:The [place] high sens itivity Troponin-I results should beused in conjunction with other diagnostic information suchas ECG, clinical observations and information, and patientsymptoms to aid in the diagnosis of CO. 06/28/2025 11:5 3 AM EDT 06/28/2025 11:56 AM EDT us Generic External Data Provider LAB BLOOD ORDERAB LES Final Result Performing Organization Address [facility] Co de Phone Number [facility] [address] [place] [phone] * (ABNORMAL) CBC auto differential (06/28/2025 11:53 AM EDT) [facility] White Blood Count 6.0 4.8 - 10.8 X10*3/uL [facility] Red Blood Count 5.40 4.60 - 5.80 X10*6/uL [facility] Hemoglobin 15.4 14.0 - 18.0 g/dl [facility] Hematocrit 47.5 42.0 - 52.0 % [facility] Mean Corpuscular Volume 88.0 80.0 - 98.0 fL [facility] Mean Corpuscular Hemoglobin 28.5 27.0 - 33.0 pg [facility] Mean Corpuscular HGB Conc 32.4 31.0 - 36.0 g/dl [facility] Red Cell Distribution Width 14.9 11.0 - 16.0 % [facility] Platelet Count 155(L) 160 - 400 X10*3/uL [facility] Mean Platelet Volume 8.9(L) 9.4 - 12.4 fL [facility] Neutrophils Percent Auto 71.8 45 - 73 % [facility] Imm Gran Pct Auto 0.5(H) 0.0 - 0.4 % [facility] Lymphocytes Percent Auto 16.8(L) 20 - 40 % [facility] Monocytes Percent Auto 8.6 2 - 11 % [facility] Eosinophils Percent Auto 2.0 0 - 4 % [facility] Basophils Percent Auto 0.3 0 - 2 % [facility] NRBC Pct Auto 0.0 0.0 - 0.2 /100WBC [facility] Neutrophils Absolute Auto 4.3 2.0 - 8.3 x10*3/uL [facility] Imm Gran Abs Auto 0.03 0.00 - 0.03 X10*3/uL [facility] Lymphocytes Absolute Auto 1.0(L) 1.2 - 4.9 X10*3/uL [facility] Monocytes Absolute Auto 0.5 0.1 - 1.2 X10*3/uL [facility] Eosinophils Absolute Auto 0.1 0.0 - 0.4 X10*3/uL [facility] Basophils Absolute Auto 0.0 0.0 - 0.2 X10*3/uL [facility] NRBC Abs Auto 0.000 0.0 - 0.012 X10*3/uL [facility] 06/28/2025 11:5 3 AM EDT 06/28/2025 11:56 AM EDT us Generic External Data Provider LAB BLOOD ORDERAB LES Final Result [facility] [address] [place] [address] [phone] * Magnesium (06/28/2025 11:53 AM EDT) Magnesium 2.0 1.6 - 2.6 mg/dL [facility] 06/28/2025 11:5 3 AM EDT 06/28/2025 11:56 AM EDT us Generic External Data Provider LAB BLOOD ORDERAB LES Final Result [facility] [address] [place] [address] [phone] * (ABNORMAL) Comprehensive Metabolic Panel (06/28/2025 11:53 AM EDT) Sodium 139 135 - 145 mmol/L [facility] Potassium 4.4 3.3 - 5.1 mmol/L [facility] Chloride 108 96 - 108 mmol/L [facility] Carbon Dioxide 25 22 - 29 mmol/L [facility] Anion Gap 10(L) 12 - 20 [facility] Urea Nitrogen (BUN) 14 9 - 16 mg/dL [facility] Creatinine, Serum 0.83 0.5 - 1.4 mg/dL [facility] Creatinine Clr Calc Pharmacy 107.4 [facility] Comment:eGFR (calculated fro m the MDRD study equation) and eCrCl(calculated from the Cockcroft-Gault equation) are based ondifferent parameters and may not yield comparable results.If eCrCl result is absurd, please check patient'sheight/weight. Estimated Glomerular Filt Rate >60 [facility] Comment:Chronic Kidney Disea se: Estimated GFR < 60 mL/min/[id number] Kidney Disease: Estimated GFR < 15 mL/min/1.73m2 Glucose 154(H) 60 - 115 mg/dL [facility] Calcium 9.1 8.4 - 10.2 mg/dL [facility] Bilirubin, Total 0.5 0.0 - 1.0 mg/dL [facility] Aspartate Amino Transferase 30 5 - 37 U/L [facility] Alanine Aminotransferase 31 0 - 40 U/L [facility] Total Protein 7.2 6.5 - 8.0 g/dL [facility] Albumin Level 4.1 3.5 - 5.0 g/dL [facility] Alkaline Phosphatase 95 39 - 117 U/L [facility] 06/28/2025 11:5 3 AM EDT 06/28/2025 11:56 AM EDT us Generic External Data Provider LAB BLOOD ORDERAB LES Final Result [facility] [address] [place] [address] [phone] * XR Lumbar Spine Complete 4+ Views (04/24/2025 12:25 PM EDT) Anatomical Region Laterality Modality Spine, L-spine Radiographic Kristi ging 04/24/2025 12:2 5 PM EDT Narrative 04/24/2025 2:42 PM EDT [facility] [address] [place] [address] XRay Report Signed Patient: Olive Tobias MR#: [id number] 7 : 1955 Acct:[id number] Age/Sex: 69 / M ADM Date: 04/24/25 Loc: SABRINA Attending Dr: Bennie HUI Ordering Physician: Bennie Morales Date of Service: 04/24/25 Procedure(s): XR lumbar spine 4V min Accession Number(s): [id number] cc: Corey Canseco MD; Bennie Morales EXAMINATION: [...] 04/24/25 1440 DD/ 1225 TD/TT: 04/24/25 1329 Resident Services Coordinator: Procedure Note Donotuseinterpreter, Image - 04/24/2025 [facility] [address] [place] [address] Drive [address] [place] [address] XRay Report Signed Patient: Iona Tobias#: [id number] 7 : 1955cct:[id number] Age/Sex: 69 / MADM Date: 04/24/25 Loc: SABRINA Attending Dr: Bennie HUI Ordering Physician: Bennie Morales Date of Service: 04/24/25 Procedure(s): XR lumbar spine 4V min Accession Number(s): [id number] cc: Corey Canseco MD; Bennie Morales EXAMINATION: [...] 04/24/25 1440 DD/ 1225 TD/TT: 04/24/25 1329 Resident Services Coordinator: [facility] External Provider IMG XR PROCEDURES Final Result * (ABNORMAL) POCT HGB A1C (04/21/2025 10:26 AM EDT) Hemoglobin A1C 6.6(A) 4.0 - 5.7 % QC Media Lot # [id number] Lot# Expiration Date [id number] Blood 04/21/2025 10:2 6 AM EDT Corey Carcamo MD POINT OF CARE TEST ENTER/EDIT ORDERABLES Final Result * (ABNORMAL) Lipid Panel, Standard (12/02/2024 10:11 AM EDT) Triglycerides 114 <150 mg/dL [facility] Comment:Desirable Triglyceri de: less than 150 mg/dLBorderline High Triglyceride 150-199 mg/dLHigh Triglyceride: 200-499 mg/dLVery High Triglyceride: greater than or equal to 5OO mg/dL Cholesterol 119 <200 mg/dL [facility] Comment:Desirable Cholestero l: less than 200 mg/dLBorderline High Cholesterol: 200-239 mg/dLHigh Cholesterol: greater than 239 mg/dL LDL Cholesterol Calculated 69 <100 mg/dL [facility] Comment:Desirable LDL: less than 100 mg/dLNear Optimal/Above Optimal LDL: 110- 129 mg/dLBorderline High LDL: 130-159 mg/dLHigh LDL: 160-189 mg/dLVery High LDL: greater than or equal to 190 mg/dL HDL Cholesterol 28(L) >40 mg/dL [facility] Comment:Desirable HDL: great er than 40 mg/dL Note: This HDL assay may give artificially low results in patients with liver disease. Blood Venous blood specimen / Unknown 12/02/2024 10:11 AM EDT 12/02/2024 2:05 PM EDT Corey Carcamo MD LAB BLOOD ORDERABL ES Final Result [facility] [address] [place] [address] [phone] * Diabetes Eye Exam (11/10/2024 9:37 AM EST) Historical Provider HEALTH MAINTENANCE Final Result * Hm Colonoscopy (04/10/2023 12:03 PM EDT) Historical Provider HEALTH MAINTENANCE Final Result * Hepatitis C Antibody with Reflex to HCV, RNA, Quantitative, Real-Time PCR (09/24/2022 10:33 AM EST) Hepatitis C Antibody NON-REACT MARK NON-REACT MARK [email or web address] [place] Index <0.02 <1.00 [email or web address] [place] Comment: HCV antibody was non-reactive. There is no laboratory evidence of HCV infection. In most cases, no further action is required. However, if recent HCV exposure is suspected, a test for HCV RNA (test code 57733) is suggested. For additional information please refer to http://education.[employer]/faq/GMT86g3 (This link is being provided for informational/ educational purposes only.) 09/24/2022 10:3 3 AM EST 09/24/2022 10:33 AM EST Narrative [facility] - 09/24/2022 9:25 PM EST FASTING:NO FASTING: NO Corey Carcamo MD LAB BLOOD ORDERABL ES Final Result [facility] [address] [place] [address], [place] [address] [email or web address] [place] [address] [facility], [address]) [place] [address] from Last 3 Months or Most Recently Relevant to Health Maintenance Insurance [place], [place] [facility] MEDICARE REPLACEMENT DENTAL [facility] Care Teams Sr. Pricing Analyst Relationship Specialty Start Date End Date Corey Canseco MD [address] [place] [address] PCP - General Internal Medicine 09/09/19
--- OUTSIDE RECORDS SUMMARY | 2025-07-04 13:54 | XMS_ITS | Encounter Summary ---
Author Organization [employer] Address [address] [place] [address] Care Team Providers Care Press Reader Name Role Phone Corey Canseco MD Primary Care Prov ider Encounter Details Date Type Department Care Team (Latest Contact Info) Description 07/04/2025 Travel Social History Tobacco Use Types Packs/Day Years [...] Upcoming Encounters Date Type Department Care Team ([facility] st Contact Info) Description 07/05/2025 9:00 AM EDT Office Visit [facility] [address] [place] [address] Salma Valadez [address] [place], [place] [phone] documented as of this encounter Visit Diagnoses Not on filedocumented in this encounter Additional Health Concerns Assessment Noted Time PHQ-9 Depression Total Score: 3 05/29/20 25 9:22 AM EDT documented as of this encounter Care Teams Press Reader Relationship Specialty Start Date End Date Corey Canseco MD [address] [place] [address] PCP - General Internal Medicine 09/09/19 documented as of this encounter
--- OUTSIDE RECORDS SUMMARY | 2025-07-04 13:54 | XMS_ITS | Encounter Summary ---
Author Organization [employer] Address [address] [facility] [address] [place] [address] Care Team Providers Care Transportation Aide Name Role Phone Corey Canseco MD Primary Care Prov ider Reason for Visit * Reason Onset Date Comments Nurse Triage 07/04/2025 Encounter Details Date Type Department Care Team ([facility] st Contact Info) Description 07/04/2025 Telephone [facility] [address] [place] [address] Corey Canseco MD [address] [place] [address] Nurse Triage Social History Tobacco Use Types Packs/Day Years [...] encounter Miscellaneous Notes * Telephone Encounter - Kandice Francois RN - 07/04/2025 9:06 AM EDT TC placed to pt who reports has a history of cellulitis of his left leg and for the last couple days his left leg has become more swollen and reports it is red and warm to touch. States its the beginning. Pt denies fever of cellulitis and would like to be evaluated, the patient does deny fever/chills and reports very mild pain which has not hindered his ability of ADL's Protocol Used: Leg Pain (Adult) Protocol-Based Disposition: See in Office or Video Visit Today or Tomorrow Video visit offer not recorded Positive Triage Questions: * Localized pain, redness * Patient wants to be seen * All higher-acuity triage questions were negative * Telephone Encounter - Poly Bell - 07/04/2025 8:37 AM EDT Symptom: Leg Pain - Not From Injury Outcome: Schedule an urgent appointment (within 1 hour) or talk to a nurse or provider soon Reason: Severe pain now The caller accepted this outcome. Contact pt at [phone] documented in this encounter Plan of Treatment Upcoming Encounters Date Type Department Care Team (Late st Contact Info) Description 07/05/2025 9:00 AM EDT Office Visit [facility] [address] [place] [address] Salma Valadez [address] [place], [place] [phone] documented as of this encounter Visit Diagnoses Not on filedocumented in this encounter Additional Health Concerns Assessment Noted Time PHQ-9 Depression Total Score: 3 05/29/20 25 9:22 AM EDT documented as of this encounter Care Teams Transportation Aide Relationship Specialty Start Date End Date Corey Canseco MD [address] [place] [address] PCP - General Internal Medicine 09/09/19 documented as of this encounter
--- OUTSIDE RECORDS SUMMARY | 2025-07-04 13:54 | XMS_ITS | Encounter Summary ---
Author Organization [employer] Address [address] [facility] [address]t [place] [address] Care Team Providers Care Centrifuge Separator Operator Name Role Phone Corey Canseco MD Primary Care Prov ider Reason for Visit * Reason Comments Med Refill Encounter Details Date Type Department Care Team ([facility] st Contact Info) Description 07/04/2024 Refill [facility] [address] [place] [address] Corey Canseco MD [address] [place] [address] Social History Tobacco Use Types Packs/Day Years [...] Description 07/05/2025 9:00 AM EDT Office Visit [facility] [address] [place] [address] Salma Valadez [address] [place], [place] [phone] documented as of this encounter Visit Diagnoses Not on filedocumented in this encounter Additional Health Concerns Assessment Noted Time PHQ-9 Depression Total Score: 9 05/19/20 24 9:41 AM EDT documented as of this encounter Care Teams Centrifuge Separator Operator Relationship Specialty Start Date End Date Corey Canseco MD [address] [place] [address] PCP - General Internal Medicine 09/09/19 documented as of this encounter
--- OUTSIDE RECORDS SUMMARY | 2025-07-04 13:55 | XMS_ITS | Encounter Summary ---
Author Organization [employer] Address 75 [facility] 7t [place] [address] Care Team Providers Care Center Sales And Service Associate Name Role Phone Corey Canseco MD Primary Care Prov ider Encounter Details Date Type Department Care Team ([facility] st Contact Info) Description 06/01/2024 Orders Only [facility] CHC MED & PEDS [address] [place] [address] Corey Canseco MD 505 [place] [address] Social History Tobacco Use Types Packs/Day Years [...] Description 07/05/2025 9:00 AM EDT Office Visit [facility] ADULT DENTAL [address] [place] [address] Salma Valadez [address] [place] [address] [id number] documented as of this encounter Visit Diagnoses Not on filedocumented in this encounter Additional Health Concerns Assessment Noted Time PHQ-9 Depression Total Score: 9 05/19/20 24 9:41 AM EDT documented as of this encounter Care Teams Center Sales And Service Associate Relationship Specialty Start Date End Date Corey Canseco MD [address] [place] [address] PCP - General Internal Medicine 09/09/19 documented as of this encounter
--- OUTSIDE RECORDS SUMMARY | 2025-07-04 13:55 | XMS_ITS | Encounter Summary ---
Author Organization [employer] Address [address] [place] [address] 7 [place] [address] Care Team Providers Care Janitorial Cleaner Name Role Phone Corey Canseco MD Primary Care Prov ider Encounter Details Date Type Department Care Team (Latest Contact Info) Description 09/28/2020 Abstract [facility] CONVERSIONS Dental, Provider, DDS Social History [...] Description 07/05/2025 9:00 AM EDT Office Visit [facility] CHC ADULT DENTAL 505 [place] [address] Salma Valadez [address] [place] [address] documented as of this encounter Visit Diagnoses Not on filedocumented in this encounter Care Teams Janitorial Cleaner Relationship Specialty Start Date End Date Corey Canseco MD 505 [place] [address] PCP - General Internal Medicine 09/09/19 documented as of this encounter
[2025-07-04 14:48] LABS: MANUAL DIFF FLAG NO
[2025-07-04 14:53] LABS: Hematocrit 46.0 % (42.0-52.0); Hemoglobin 14.7 g/dl (14.0-18.0); Imm Gran Abs Auto 0.05 X10*3/uL (0.00-0.03); Imm Gran Pct Auto 0.9 % (0.0-0.4); Lymphocytes Absolute Auto 1.0 X10*3/uL (1.2-4.9); Mean Corpuscular HGB Conc 32.0 g/dl (31.0-36.0); Mean Corpuscular Hemoglobin 28.4 pg (27.0-33.0); Mean Corpuscular Volume 88.8 fL (80.0-98.0); NRBC Abs Auto 0.000 X10*3/uL (0.0-0.012); NRBC Pct Auto 0.0 /100WBC (0.0-0.2); Platelet Count 168 X10*3/uL (160-400); Red Blood Count 5.18 X10*6/uL (4.60-5.80); White Blood Count 5.4 X10*3/uL (4.8-10.8)
[2025-07-04 18:18] LABS: Alanine Aminotransferase 30 U/L (0-40); Albumin Level 4.3 g/dL (3.5-5.0); Alkaline Phosphatase 116 U/L (39-117); Anion Gap 12 (12-20); Aspartate Amino Transferase 35 U/L (5-37); Blood Urea Nitrogen 15 mg/dL (9-16); Calcium 8.9 mg/dL (8.4-10.2); Carbon Dioxide 24 mmol/L (22-29); Chloride 108 mmol/L (96-108); Cholesterol 138 mg/dL (<200); Estimated Glomerular Filt Rate > 60; HDL Cholesterol 33 mg/dL (>40); Potassium 4.1 mmol/L (3.3-5.1); Sodium 140 mmol/L (135-145); Total Protein 7.4 g/dL (6.5-8.0); Triglycerides 238 mg/dL (<150)
== END 2025-07-04 11:04 | disposition home or self-care (01) ==
LOC: HO.CHCLDS 11:03
PROVIDERS: Visit Provider Internal Medicine
DX: E11.9 Type 2 diabetes mellitus without complications (principal)
CPT/HCPCS: 36415; 80053; 80061; 83036; 85025

== ENCOUNTER 2025-07-06 09:08 | Outpatient (REF) | payer MEDICARE, SELFPAY ==
--- OUTSIDE RECORDS SUMMARY | 2025-07-04 09:30 | XMS_ITS | Encounter Summary ---
Author Organization [employer] Address [address] [facility] [address] 7t [place] [address] Care Team Providers Care Extension Service Specialist In Charge Name Role Phone Corey Canseco MD Primary Care Prov ider Reason for Visit * Reason Comments Cellulitis leg Encounter Details Date Type Department Care Team (Late st Contact Info) Description 07/04/2025 9:30 AM EDT Office Visit [facility] CHC MED & PEDS [address] [place] [address] Devi Jones MD 505 [place] [address] Left leg cellulitis (Primary Dx); Type 2 [...] with long-term current use of insulin ([facility]) - POCT Glucose Other orders - cephalexin (Keflex) 500 MG capsule; Take 1 capsule (500 mg) by mouth 2 times daily for 7 days. documented in this encounter Plan of Treatment Upcoming Encounters Date Type Department Care Team (Late st Contact Info) Description 07/18/2025 2:30 PM EST Office Visit [facility] ADULT DENTAL [address] [place] [address] Akira Chun DMD [address] [place] [address] 07/24/2025 9:00 AM EST Office Visit [facility] ADULT DENTAL [address] [place] [address] Akira Chun DMD 505 [place] [address] 01/04/2026 8:00 AM EDT Office Visit [facility] ADULT DENTAL [address] [place] [address] Nettie Everett Scheduled Orders Name Type Priority Associated Diagnoses Orde r Schedule Tick ID W/reflex to Lyme Disease DNA Lab Routine Left leg cellulitis Expected: 07/04/2025 (Approximate), Expires: 07/04/2026 documented as of this encounter Procedures Procedure Name Priority Date/Time Associated Diagnosis Comments POCT GLUCOSE Routine 07/04/2025 9:47 AM EDT Type 2 diabetes mellitus with other diabetic kidney complication, with long-term current use of insulin ([facility]) documented in this encounter Results * (ABNORMAL) [...] documented as of this encounter Care Teams Extension Service Specialist In Charge Relationship Specialty Start Date End Date Corey Canseco MD 505 [place] [address] PCP - General Internal Medicine 09/09/19 documented as of this encounter
--- OUTSIDE RECORDS SUMMARY | 2025-07-05 09:00 | XMS_ITS | Encounter Summary ---
Author Organization [employer] Address [address] [facility] [address] 7t [place] [address] Care Team Providers Care Biomedical Equipment Support Specialist Name Role Phone Corey Canseco MD Primary Care Prov ider Reason for Visit * Reason Comments Routine Cleaning Encounter Details Date Type Department Care Team (Late st Contact Info) Description 07/05/2025 9:00 AM EDT Office Visit [facility] CHC ADULT DENTAL [address] [place] [address] Salma Valadez [address] [place] [address] Social History Tobacco Use Types Packs/Day Years [...] Sign Reading Time Taken Comments Blood Pressure 136/64 07/05/2025 9:09 AM EDT Pulse - - Temperature - - Respiratory Rate - - Oxygen Saturation - - Inhaled Oxygen Concentration - - Weight - - Height - - Body Mass Index - - documented in this encounter Progress Notes * Salma Valadez - 07/05/2025 9:00 AM EDT Patient ID: Olive Tobias is a 70 y.o. male. Time Out: Date: 07/05/2025 Location: [facility] Tooth: all Procedure: Exam and Prophylaxis Verified the above with patient, property management assistant, and provider. Confirmed via patient's chart, intraorally and by radiographs. Surgery Aid: not applicable Treatment Provided Dental procedures in this visit D1110 - PROPHYLAXIS - ADULT (Completed) Service provider: Salma Valadez Billing provider: Akira Chun DMD Instruments Used: Hand Scalers and Prophy angle Calculus: Light Plaque: Light-mod Stain: Light-mod Bleeding: Light Gingiva: inflamed OH: Fair OCS: neg findings HNE: neg findings Oral hygiene instructions provided to patient including brushing technique and flossing. Recommendations: Floss daily Recall Frequency: 6 mo NV: Hygienist: Salma Valadez RDH documented in this encounter Plan of Treatment Upcoming Encounters Date Type Department Care Team (Late st Contact Info) Description 07/18/2025 2:30 PM EST Office Visit [facility] ADULT DENTAL 505 [place] [address] Akira Chun, DMD 505 [place] [address] 07/24/2025 9:00 AM EST Office Visit [facility] ADULT DENTAL [address] [place] [address] Adiel Akira, DMD 505 [place] [address] 01/04/2026 8:00 AM EDT Office Visit [facility] ADULT DENTAL [address] [place] [address] Nettie Everett Scheduled Orders Name Type Priority Associated Diagnoses Orde r Schedule PROPHYLAXIS - ADULT Dental Routine 1 Occ urrences starting 07/05/2025 documented as of this encounter Procedures Procedure Name Priority Date/Time Associated Diagnosis Comments PROPHYLAXIS - ADULT Routine 07/05/2025 9:00 AM EDT documented in this encounter Visit Diagnoses Not on filedocumented in this encounter Additional Health Concerns Assessment Noted Time PHQ-9 Depression Total Score: 3 05/29/20 25 9:22 AM EDT documented as of this encounter Care Teams Biomedical Equipment Support Specialist Relationship Specialty Start Date End Date Corey Canseco MD 505 [place] [address] PCP - General Internal Medicine 09/09/19 documented as of this encounter
--- NOTE | ~2025-07-06 | XR_ITS ---
CLINICAL HISTORY: M25.519 - Pain in unspecified shoulder 3 view left shoulder Comparison: DX - XR SHOULDER LT MIN 2V - 09/26/24 08:56 EST DX - XR SHOULDER LT MIN 2V - 08/18/24 14:09 EST Findings: Normal congruency of the glenohumeral joint. Stable AC joint arthrosis No fractures or bony erosions. Left shoulder arthroplasty in anatomic alignment without evidence of hardware complication Persistent periarticular soft tissue calcifications versus loose bodies glenohumeral joint. No radiopaque foreign body. Normal visualized left chest. Impression: 1. Left shoulder arthroplasty in anatomic alignment without evidence of hardware complication. Stable AC joint arthrosis. Periarticular calcifications glenohumeral joint may represent soft tissue calcifications can not exclude loose bodies. These appear slightly more conspicuous This document has been electronically signed by: Noe Castillo MD on 07/06/2025 12:46:53
--- OUTSIDE RECORDS SUMMARY | 2025-07-06 10:00 | XMS_ITS | Encounter Summary ---
Author Organization [employer] Address [address] [facility] [address] 7t [place] [address] Care Team Providers Care Screwhead Polisher Name Role Phone Corey Canseco MD Primary Care Prov ider Encounter Details Date Type Department Care Team ([facility] st Contact Info) Description 09/30/2023 Abstract [facility] ADULT DENTAL 505 [place] [address] Maryana Penn, DDS 505 [place] [address] Social History Tobacco Use Types Packs/Day Years [...] the past 12 months, has t he [employer] gas, oil or water company threatened to [...] 2:30 PM EST Office Visit [facility] ADULT DENTAL 505 [place] [address] Akira Chun, DMD 505 [place] [address] 07/24/2025 9:00 AM EST Office Visit [facility] ADULT DENTAL [address] [place] [address] Akira Chun, DMD 505 [place] [address] 01/04/2026 8:00 AM EDT Office Visit [facility] ADULT DENTAL [address] [place] [address] Nettie Everett documented as of this encounter Visit Diagnoses Not on filedocumented in this encounter Additional Health Concerns Assessment Noted Time PHQ-9 Depression Total Score: 5 08/27/20 23 9:37 AM EST documented as of this encounter Care Teams Screwhead Polisher Relationship Specialty Start Date End Date Corey Canseco MD [address] [place] [address] PCP - General Internal Medicine 09/09/19 documented as of this encounter
--- OUTSIDE RECORDS SUMMARY | 2025-07-06 10:00 | XMS_ITS | Encounter Summary ---
Author Organization [employer] Address [address] [facility] 7t [place] [address] Care Team Providers Care Middle School Technology Teacher Name Role Phone Corey Canseco MD Primary Care Prov ider Encounter Details Date Type Department Care Team ([facility] st Contact Info) Description 04/21/2025 Orders Only [facility] CHC MED & PEDS [address] [place] [address] Corey Canseco MD 505 [place] [address] Social History Tobacco Use Types Packs/Day Years [...] Description 07/18/2025 2:30 PM EST Office Visit [facility] ADULT DENTAL 505 [place] [address] Akira Chun, DMD [address] [place] [address] 07/24/2025 9:00 AM EST Office Visit [facility] ADULT DENTAL 505 [place] [address] Akira Chun, DMD [address] [place] [address] 01/04/2026 8:00 AM EDT Office Visit [facility] ADULT DENTAL [address] [place] [address] Nettie Everett documented as of this encounter Procedures Procedure Name Priority Date/Time Associated Diagnosis Comments XR LUMBAR SPINE COMPLETE 4+ VIEWS Routine 04/24/2025 12:25 PM EDT documented in this encounter Results * XR Lumbar Spine Complete 4+ Views (04/24/2025 12:25 PM EDT) Anatomical Region Laterality Modality Spine, L-spine Radiographic Kristi ging 04/24/2025 12:2 5 PM EDT Narrative 04/24/2025 2:42 PM EDT [facility] [address] [place] [address] XRay Report Signed Patient: Olive Tobias MR#: [id number] 7 : 1955 Acct:[id number] Age/Sex: 69 / M ADM Date: 04/24/25 Loc: S[facility] Attending Dr: Bennie HUI Ordering Physician: Bennie Morales Date of Service: 04/24/25 Procedure(s): XR lumbar spine 4V min Accession Number(s): [id number] cc: Corey Canseco MD; Bennie Morales EXAMINATION: [...] 04/24/25 1440 DD/ 1225 TD/TT: 04/24/25 1329 Administrative Coordinator: Procedure Note Donotuseinterpreter, Image - 04/24/2025 [facility] [address] [place] [address] Drive [address] [place] [address] XRay Report Signed Patient: Iona Tobias#: [id number] 7 : 1955cct:[id number] Age/Sex: 69 / MADM Date: 04/24/25 Loc: HO.HOSX Attending Dr: Bennie HUI Ordering Physician: Bennie Morales Date of Service: 04/24/25 Procedure(s): XR lumbar spine 4V min Accession Number(s): [id number] cc: Corey Canseco MD; Bennie Morales EXAMINATION: [...] 04/24/25 1440 DD/ 1225 TD/TT: 04/24/25 1329 Administrative Coordinator: [facility] External Provider IMG XR PROCEDURES Final Result documented in this encounter Visit Diagnoses Not on filedocumented in this encounter Additional Health Concerns Assessment Noted Time PHQ-9 Depression Total Score: 0 12/01/19 25 9:07 AM EDT documented as of this encounter Care Teams Middle School Technology Teacher Relationship Specialty Start Date End Date Corey Canseco MD [address] [place] [address] PCP - General Internal Medicine 09/09/19 documented as of this encounter
--- OUTSIDE RECORDS SUMMARY | 2025-07-06 10:00 | XMS_ITS | Encounter Summary ---
Author Organization [employer] Address [address] [facility] [address] 7t [place] [address] Care Team Providers Care Relations Manager Name Role Phone Corey Canseco MD Primary Care Prov ider Encounter Details Date Type Department Care Team (Late st Contact Info) Description 12/25/2023 Orders Only [facility] MEDICINE [address] [place] [address] ProviderМарина MD Social History Tobacco Use Types [...] Description 07/18/2025 2:30 PM EST Office Visit [facility] ADULT DENTAL [address] [place] [address] Akira Chun, DMD 505 [place] [address] 07/24/2025 9:00 AM EST Office Visit [facility] ADULT DENTAL [address] [place] [address] Akira Chun, DMD [address] [place] [address] 01/04/2026 8:00 AM EDT Office Visit [facility] ADULT DENTAL [address] [place] [address] Nettie Everett documented as of this encounter [...] AM EDT Narrative 01/14/2024 4:15 PM EDT [address] [address] [address] Scan Report Signed Patient: Olive Tobias MR#: [id number] 7 : 1955 Acct:[id number] Age/Sex: 68 / M ADM Date: 01/14/24 Loc: HO.CT Attending Dr: Jon Meza MD Ordering Physician: Jon Meza MD Date of Service: 01/14/24 Procedure(s): CT shoulder LT wo IV con Accession Number(s): [id number] cc: Corey Canseco MD; Jon Meza MD [...] in OV> 01/14/24 1612 DD/ 0815 TD/TT: Music Typographer: NEREYDA Procedure Note Donotuseinterpreter, Image - 01/14/[address] [place] [address] [address] Scan Report Signed Patient: Iona Tobias#: [id number] 7 : 1955cct:[id number] Age/Sex: 68 / MADM Date: 01/14/24 Loc: HO.CT Attending Dr: Jon Meza MD Ordering Physician: Jon Meza MD Date of Service: 01/14/24 Procedure(s): CT shoulder LT wo IV con Accession Number(s): [id number] cc: Corey Canseco MD; Jon Meza MD [...] in OV> 01/14/24 1612 DD/ 0815 TD/TT: Music Typographer: NEREYDA [facility] External Provider IMG CT PROCEDURES Final Result * Hm Colonoscopy (04/10/2023 12:03 PM EDT) Historical Provider HEALTH MAINTENANCE Final Result documented in this encounter Visit Diagnoses Not on filedocumented in this encounter Additional Health Concerns Assessment Noted Time PHQ-9 Depression Total Score: 6 12/24/19 24 9:28 AM EDT documented as of this encounter Care Teams Relations Manager Relationship Specialty Start Date End Date ChambersCorey Grace MD [address] [place] [address] PCP - General Internal Medicine 09/09/19 documented as of this encounter
--- OUTSIDE RECORDS SUMMARY | 2025-07-06 10:00 | XMS_ITS | Encounter Summary ---
Author Organization [employer] Address [address] [place] [address] 7 [place] [address] Care Team Providers Care Boatswain Mate Name Role Phone Corey Canseco MD Primary Care Prov ider Reason for Referral * Imaging (Routine) - Closed Specialty Diagnoses / Procedures Referred By Contac t Referred To Contact Radiology Diagnoses Chronic left shoulder pain Procedures MR Shoulder w/o Contrast Left Corey Canseco MD [address] [place] [address] Phone: tel: fax: [address] Phone: tel: fax: Referral ID Status Reason Start Date Expiration Date Visits Re quested Visits Authorized [id number] Closed 12/02/2023 12/01/2024 1 1 Encounter Details Date Type Department Care Team (Late st Contact Info) Description 12/02/2023 Orders Only [facility] CHC MED & PEDS [address] [place] [address] Corey Canseco MD [address] [place] [address] Chronic left shoulder pain (Primary Dx) Social [...] Description 07/18/2025 2:30 PM EST Office Visit [facility] CHC ADULT DENTAL 505 [place] [address] Akira Chun, RAMIREZ 505 [place] [address] 07/24/2025 9:00 AM EST Office Visit [facility] ADULT DENTAL [address] [place] [address] Akira Chun, RAMIREZ 505 [place] [address] 01/04/2026 8:00 AM EDT Office Visit [facility] ADULT DENTAL [address] [place] [address] Nettie Everett Scheduled Orders Name Type Priority [...] documented as of this encounter Care Teams Boatswain Mate Relationship Specialty Start Date End Date Corey Canseco MD [address] [place] [address] PCP - General Internal Medicine 09/09/19 documented as of this encounter
--- OUTSIDE RECORDS SUMMARY | 2025-07-06 10:00 | XMS_ITS | Encounter Summary ---
Author Organization [employer] Address 75 [facility] 7t [place] [address] Care Team Providers Care Booster Pump Oiler Name Role Phone Corey Canseco MD Primary Care Prov ider Reason for Visit * Reason Onset Date Comments Med Refill 03/27/2025 Encounter Details Date Type Department Care Team (Late st Contact Info) Description 03/27/2025 Refill [facility] MED & PEDS [address] [place] [address] Corey Canseco MD 505 [place] [address] Social History Tobacco Use Types Packs/Day Years [...] Description 07/18/2025 2:30 PM EST Office Visit [facility] ADULT DENTAL 505 [place] [address] Akira Chun, RAMIREZ [address] [place] [address] 07/24/2025 9:00 AM EST Office Visit [facility] ADULT DENTAL 505 [place] [address] Akira Chun DMD 505 [place] [address] 01/04/2026 8:00 AM EDT Office Visit [facility] ADULT DENTAL [address] [place] [address] Nettie Everett documented as of this encounter Visit Diagnoses Not on filedocumented in this encounter Additional Health Concerns Assessment Noted Time PHQ-9 Depression Total Score: 0 12/01/19 25 9:07 AM EDT documented as of this encounter Care Teams Booster Pump Oiler Relationship Specialty Start Date End Date Corey Canseco MD [address] [place] [address] PCP - General Internal Medicine 09/09/19 documented as of this encounter
--- OUTSIDE RECORDS SUMMARY | 2025-07-06 10:00 | XMS_ITS | Encounter Summary ---
Author Organization [employer] Address 75 [facility] 7t [place] [address] Care Team Providers Care Director Of Strategic Alliances Name Role Phone Corey Canseco MD Primary Care Prov ider Encounter Details Date Type Department Care Team (Latest Contact Info) Description 09/26/2019 Abstract [facility] CONVERSIONS Dental, Provider, DDS Social History [...] 07/18/2025 2:30 PM EST Office Visit [facility] AD[facility] 505 [place] [address] Akira Chun, RAMIREZ [address] [place] [address] 07/24/2025 9:00 AM EST Office Visit [facility] ADULT DENTAL 505 [place] [address] Akira Chun, DMD [address] [place] [address] 01/04/2026 8:00 AM EDT Office Visit [facility] ADULT DENTAL [address] [place] [address] Nettie Everett documented as of this encounter Visit Diagnoses Not on filedocumented in this encounter Care Teams Director Of Strategic Alliances Relationship Specialty Start Date End Date Corey Canseco MD [address] [place] [address] [place] [address] PCP - General Internal Medicine 09/09/19 documented as of this encounter
--- OUTSIDE RECORDS SUMMARY | 2025-07-06 10:00 | XMS_ITS | Encounter Summary ---
Author Organization [employer] Address 75 [facility] 7 [place] [address] Care Team Providers Care Preschool Teacher Name Role Phone Corey Canseco MD Primary Care Prov ider Reason for Visit * Reason Comments Med Refill Encounter Details Date Type Department Care Team (Late Contact Info) Description 04/05/2023 Refill [facility] MED & PEDS [address] [place] [address] Corey Canseco MD 505 [place] [address] Mixed hyperlipidemia Social History Tobacco Use Types [...] Department Care Team (Late Contact Info) Description 07/18/2025 2:30 PM EST Office Visit [facility] ADULT DENTAL [address] [place] [address] Akira Chun DMD 505 [place] [address] 07/24/2025 9:00 AM EST Office Visit [facility] ADULT DENTAL [address] [place] [address] Akira Chun, DMD 505 [place] [address] 01/04/2026 8:00 AM EDT Office Visit [facility] ADULT DENTAL [address] [place] [address] Nettie Everett documented as of this encounter Visit Diagnoses Diagnosis Mixed hyperlipidemia documented in this encounter Additional Health Concerns Assessment Noted Time PHQ-9 Depression Total Score: 0 12/20/19 9:39 AM EDT documented as of this encounter Care Teams Preschool Teacher Relationship Specialty Start Date End Date Corey Canseco MD [address] [place] [address] PCP - General Internal Medicine 09/09/19 documented as of this encounter
--- OUTSIDE RECORDS SUMMARY | 2025-07-06 10:00 | XMS_ITS | Encounter Summary ---
Author Organization [employer] Address 75 [facility] 7 [place] [address] Care Team Providers Care Director Global Intelligence Name Role Phone Corey Canseco MD Primary Care Prov ider Reason for Visit * Reason Comments Med Refill Encounter Details Date Type Department Care Team (Late Contact Info) Description 03/20/2023 Refill [facility] MED & PEDS [address] [place] [address] Corey Canseco MD [address] [place] [address] Social History Tobacco Use Types Packs/Day Years [...] 2:30 PM EST Office Visit [facility] ADULT DENTAL [address] [place] [address] Akira Chun DMD 505 [place] [address] 07/24/2025 9:00 AM EST Office Visit [facility] ADULT DENTAL [address] [place] [address] Akira Chun, DMD 505 [place] [address] 01/04/2026 8:00 AM EDT Office Visit [facility] ADULT DENTAL [address] [place] [address] Nettie Everett documented as of this encounter Visit Diagnoses Not on filedocumented in this encounter Additional Health Concerns Assessment Noted Time PHQ-9 Depression Total Score: 0 12/20/19 9:39 AM EDT documented as of this encounter Care Teams Director Global Intelligence Relationship Specialty Start Date End Date Corey Canseco MD [address] [place] [address] PCP - General Internal Medicine 09/09/19 documented as of this encounter
--- OUTSIDE RECORDS SUMMARY | 2025-07-06 10:00 | XMS_ITS | Encounter Summary ---
Author Organization [employer] Address 75 [facility] 7t [place] [address] Care Team Providers Care Monotypist Name Role Phone Corey Canseco MD Primary Care Prov ider Encounter Details Date Type Department Care Team (Late st Contact Info) Description 11/11/2024 Orders Only [facility] [address] [place] [address] Provider, MD Марина Social History Tobacco Use [...] 07/18/2025 2:30 PM EST Office Visit [facility] ADULT DENTAL [address] [place] [address] Akira Chun, DMD 505 [place] [address] 07/24/2025 9:00 AM EST Office Visit [facility] ADULT DENTAL [address] [place] [address] Akira Chun, DMD [address] [place] [address] 01/04/2026 8:00 AM EDT Office Visit [facility] ADULT DENTAL [address] [place] [address] Nettie Everett documented as of this encounter [...] documented as of this encounter Care Teams Monotypist Relationship Specialty Start Date End Date Corey Canseco MD [address] [place] [address] PCP - General Internal Medicine 09/09/19 documented as of this encounter
--- OUTSIDE RECORDS SUMMARY | 2025-07-06 10:01 | XMS_ITS | Encounter Summary ---
Author Organization [employer] Address [address] [facility] [address] 7t [place] [address] Care Team Providers Care Level Vial Curvature Gauger Name Role Phone Corey Canseco MD Primary [...] Description 07/18/2025 2:30 PM EST Office Visit [facility] ADULT DENTAL 505 [place] [address] Akira Chun, DMD 505 [place] [address] 07/24/2025 9:00 AM EST Office Visit [facility] ADULT DENTAL 505 [place] [address] Akira Chun, DMD 505 [place] [address] 01/04/2026 8:00 AM EDT Office Visit [facility] ADULT DENTAL 505 [place] [address] Nettie Everett documented as of this encounter Visit Diagnoses Not on filedocumented in this encounter Additional Health Concerns Assessment Noted Time PHQ-9 Depression Total Score: 3 05/29/20 25 9:22 AM EDT documented as of this encounter Care Teams Level Vial Curvature Gauger Relationship Specialty Start Date End Date Corey Canseco MD 505 [place] [address] PCP - General Internal Medicine 12/27/19 documented as of this encounter
--- OUTSIDE RECORDS SUMMARY | 2025-07-06 10:01 | XMS_ITS | Clinical Summary ---
Author Organization [employer] Address [address] [place] [address] Care Team Providers Care Plastics Sheet Finishing Press Operator Name Role Phone Corey Canseco MD [...] complication, without long-term current use of insulin ([facility]) 1 kit 3 times daily. 1 kit Active glucose blood (Accu-Chek Guide Test) test stripIndications: Type 2 diabetes mellitus without complication, without long-term current use of insulin ([facility]) 1 each by Other route 3 times daily. 270 each 3 025 2025 Active Accu-Chek Softclix Lancets lancetsIndication s:Type 2 diabetes mellitus without complication, without long-term current use of insulin ([facility]) Use as instructed 100 each 12 025 [...] 7 days. 14 capsule 025 2024 Active flecainide (Tambocor) 50 MG tablet TAKE ONE TABLET IN THE MORNING AND EVENING Active semaglutide (Ozempic, 0.25 or 0.5 MG/DOSE,) 2 MG/1.5ML solution pen-injector Inject under the skin. Active cyanocobalamin (Vitamin B-12) 1000 MCG tabletIndications [...] Mets >4 Blood work done today at [facility] Told to continue oral antyhypertensives the [...] (03/07/2024 2:26 PM EDT): [facility] refer to [facility] Assessment & Plan (11/30/2023 10:07 PM EDT): Will refer to gi for evalaution, refer constantly having mild stool incontinence, no bleeding Atrial fibrillation ([facility]/HCC) 02/24/2023 Assessment & Plan (04/21/2025 10:31 [...] family as protective factors. Discussed OP therapy, Ploo is not ready to engage with other [...] up for support, patient declined interest in manager terminal therapy. At this time Olive Tobias [...] as patient requested and discussed with his residential concierge, discussed with patient risk vs benefits, follow [...] organization. Date Type Department Care Team Description 07/05/2025 9:00 AM EDT Office Visit [facility] ADULT DENTAL [address] [place] [address] Salma Valadez 07/04/2025 9:30 AM EDT Office Visit [facility] MED & PEDS [address] [place] [address] Devi Jones MD Left leg cellulitis (Primary Dx); Type 2 diabetes mellitus with other diabetic kidney complication, with long-term current use of insulin (HCC); Encounter for immunization 07/04/2025 Orders Only [facility] [address] [place] [address] Provider, MD Марина 07/04/2025 Travel 07/04/2025 Telephone [facility] MEDICINE [address] [place] [address] Corey Canseco MD Nurse Triage 06/28/2025 Orders Only GENERIC EXTERNAL DATA DEPARTMENT Provider, Generic External Data 06/23/2025 Refill [facility] [address] [place] [address] Corey Canseco MD Primary hypertension 2025 Refill [facility] [address] [place], [place] [phone] Cliff Damon MD Vitamin B 12 deficiency; Vitamin D deficiency 05/29/2025 Travel 05/27/2025 Refill [facility] [address] [place] [address] Corey Canseco MD Mixed hyperlipidemia 04/30/2025 Refill [facility] [address] [place] [address] Corey Canseco MD Pain 04/21/2025 8:45 AM EDT Office Visit [facility] [address] [place] [address] Corey Canseco MD Type 2 diabetes mellitus without complication, without long-term current use of insulin (CMS/[facility]) (Primary Dx); Atrial fibrillation, unspecified type (CMS/HCC); Body mass index (BMI) 45.0-49.9, adult (CMS/HCC); Primary hypertension 04/21/2025 Telephone [facility] [address] [place] [address] Corey Canseco MD 04/21/2025 Orders Only [facility]EDS [address] [place] [address] Corey Canseco MD 04/21/2025 Telephone [facility] [address] [place] [address] Corey Canseco MD Med Refill 04/21/2025 Travel 04/21/2025 Refill [facility] [address] [place] [address] Corey Canseco MD 04/20/2025 Travel 04/15/2025 Refill [facility] [address] [place] [address] Corey Canseco MD Type 2 diabetes mellitus without complication, without long-term current use of insulin ([facility]) from Last 3 Months Immunizations Immunization Administration [...] Pressure 136/64 07/05/2025 9:09 AM EDT Pulse 72 07/04/2025 9:46 AM [...] Description 07/18/2025 2:30 PM EST Office Visit [facility] ADULT DENTAL [address] [place] [address] Akira Chun, RAMIREZ [address] [place] [address] 07/24/2025 9:00 AM EST Office Visit [facility]ULT [facility] [address] [facility] [place] [address] Akira Chun, DMD [address] [place] [address] 01/04/2026 8:00 AM EDT Office Visit [facility]ULT [facility] [address] [place] [address] Nettie Everett Health Maintenance Due Date Last Done Comments CT Colonography 1955 FIT DNA/Cologuard 1955 FIT 1955 FOBT 1955 Sigmoidoscopy 1955 Dental Oral Exam 10/17/2024 04/15/2024, 09/16/2023 Diabetes: Foot Exam 10/28/2024 10/28/2023, 10/28/2023, 10/28/2023, Additional history exists COVID-19 Vaccine ( season) 2025 06/10/2024, 06/11/2023, 07/07/2022, Additional history exists Dental X-Ray: Bitewings 11/03/2025 11/02/19 25, 04/15/2024, 09/16/2023, Additional history exists Alcohol/Substance Use Screening 11/30/2025 11/30/2024 SDOH Screening 11/30/2025 11/30/2024 Diabetes: Hemoglobin A1C 01/02/2026 025, 04/21/2025, 11/30/2024, Additional history exists Dental Prophylaxis 01/04/2026 07/05/2025, 0 11/02/2024, 04/15/2024, Additional history exists Depression Screening 05/29/2026 05/29/2025, 05/29/20 Eye Exam 07/04/2026 07/04/2025, 11/10/2024 Lipid Panel 07/04/2026 07/04/2025, 0309/2024, 10/28/2023, Additional history exists Tobacco Screening 07/05/2026 07/05/2025 Dental X-Ray: Full Mouth 09/17/2026 09/16/2023 DTaP/Tdap/Td [...] Diagnosis Comments PROPHYLAXIS - ADULT Routine 07/05/2025 9 :00 AM EDT HM DIABETES EYE EXAM Routine 07/04/2025 2:21 PM EDT LIPID PANEL, STANDARD Routine 07/04/2025 11:05 AM EDT COMPREHENSIVE METABOLIC PANEL Routine 07/04/2025 11:05 AM EDT HEMOGLOBIN A1C Routine 07/04/2025 11:05 AM EDT CBC WITH AUTO DIFFERENTIAL Routine 07/04/2025 11:05 AM EDT POCT GLUCOSE Routine 07/04/2025 9:47 AM EDT Type 2 diabetes mellitus with other diabetic kidney complication, with long-term current use of insulin ([facility]) LOWER EXTREMITY VENOUS DUPLEX LEFT Routine 06/28/2025 [...] complication, without long-term current use of insulin ([facility]) POCT GLYCATED HEMOGLOBIN, TOTAL Routine 04/21/2025 10:26 AM EDT Type 2 diabetes mellitus without complication, without long-term current use of insulin ([facility]) BITEWINGS - 4 RADIOGRAPHIC IMAGES Routine 11/02/2024 9:00 AM EST PERIODIC ORAL EVALUATION - ESTABLISHED PATIENT Routine 04/15/2024 10:00 AM EDT INTRAORAL - COMPLETE SERIES OF RADIOGRAPHIC IMAGES Routine 09/16/2023 9:00 AM EST COLONOSCOPY Routine 04/10/2023 12:03 PM EDT HEPATITIS C AB W/REFL TO HCV RNA, QN, PCR Routine 09/24/2022 10:33 AM EST from Last 3 Months or Most Recently Relevant to Health Maintenance Results * Diabetes Eye Exam (07/04/2025 2:21 PM EDT) us Historical Provider MD HEALTH MAINTENANCE Final Result * (ABNORMAL) CBC auto differential (07/04/2025 11:05 AM EDT) Only the most recent of2 resultswithin the time period is included. White Blood Count 5.4 4.8 - 10.8 X10*3/uL [facility] Red Blood Count 5.18 4.60 - 5.80 X10*6/uL [facility] Hemoglobin 14.7 14.0 - 18.0 g/dl [facility] Hematocrit 46.0 42.0 - 52.0 % [facility] Mean Corpuscular Volume 88.8 80.0 - 98.0 fL [facility] Mean Corpuscular Hemoglobin 28.4 27.0 - 33.0 pg [facility] Mean Corpuscular HGB Conc 32.0 31.0 - 36.0 g/dl [facility] Red Cell Distribution Width 14.8 11.0 - 16.0 % [facility] Platelet Count 168 160 - 400 X10*3/uL [facility] Mean Platelet Volume 9.2(L) 9.4 - 12.4 fL [facility] Neutrophils Percent Auto 71.6 45 - 73 % [facility] Imm Gran Pct Auto 0.9(H) 0.0 - 0.4 % [facility] Lymphocytes Percent Auto 17.6(L) 20 - 40 % [facility] Monocytes Percent Auto 7.8 2 - 11 % [facility] Eosinophils Percent Auto 1.9 0 - 4 % [facility] Basophils Percent Auto 0.2 0 - 2 % [facility] NRBC Pct Auto 0.0 0.0 - 0.2 /100WBC [facility] Neutrophils Absolute Auto 3.9 2.0 - 8.3 x10*3/uL [facility] Imm Gran Abs Auto 0.05(H) 0.00 - 0.03 X10*3/uL [facility] Lymphocytes Absolute Auto 1.0(L) 1.2 - 4.9 X10*3/uL [facility] Monocytes Absolute Auto 0.4 0.1 - 1.2 X10*3/uL [facility] Eosinophils Absolute Auto 0.1 0.0 - 0.4 X10*3/uL [facility] Basophils Absolute Auto 0.0 0.0 - 0.2 X10*3/uL [facility] NRBC Abs Auto 0.000 0.0 - 0.012 X10*3/uL [facility] 07/04/2025 11:0 5 AM EDT 07/04/2025 2:44 PM EDT us Corey Carcamo MD LAB BLOOD ORDERABL ES Final Result [facility] [address] [place] [phone] * (ABNORMAL) Hemoglobin A1c (07/04/2025 11:05 AM EDT) Hemoglobin A1c 6.7(H) <6.0 % [facility] Comment:Hemoglobin A1C Refer ence Range Adults: 4.8 - 6.0 % Non diabetic: < 6.0 % Goal: < 7.0 %Additional Action Suggested: > 8.0 %Note: Hemoglobin A1c results are invalid for patients with abnormal amounts of HbF. Blood transfusions may impact the HbA1c concentration in the patient sample. Estimated Average Glucose 146 mg/dL [facility] Comment:eAG = Estimated ave rage glucose which is %A1C expressed asaverage glucose, using the formula of the E7L-WakgnilJadblkl Glucose study (ADAG), Diabetes Care, Vol.31,#8,Apr. 2007 07/04/2025 11:0 5 AM EDT 07/04/2025 2:44 PM EDT Corey Carcamo MD LAB BLOOD ORDERABL ES Final Result Performing Organization Address [facility] Co de Phone Number [facility] [address] [place] [address] [phone] * (ABNORMAL) Lipid Panel, Standard (07/04/2025 11:05 AM EDT) Triglycerides 238(H) <150 mg/dL [facility] Comment:Slight Lipemia.Lyric able Triglyceride: less than 150 mg/dLBorderline High Triglyceride 150-199 mg/dLHigh Triglyceride: 200-499 mg/dLVery High Triglyceride: greater than or equal to 5OO mg/dL Cholesterol 138 <200 mg/dL [facility] Comment:Desirable Cholestero l: less than 200 mg/dLBorderline High Cholesterol: 200-239 mg/dLHigh Cholesterol: greater than 239 mg/dL LDL Cholesterol Calculated 58 <100 mg/dL [facility] Comment:Desirable LDL: less than 100 mg/dLNear Optimal/Above Optimal LDL: 110- 129 mg/dLBorderline High LDL: 130-159 mg/dLHigh LDL: 160-189 mg/dLVery High LDL: greater than or equal to 190 mg/dL HDL Cholesterol 33(L) >40 mg/dL [facility] Comment:Desirable HDL: great er than 40 mg/dL Note: This HDL assay may give artificially low results in patients with liver disease. 07/04/2025 11:0 5 AM EDT 07/04/2025 2:21 PM EDT us Corey Carcamo MD LAB BLOOD ORDERABL ES Final Result Performing Organization Address [facility] Co de Phone Number [facility] [address] [place] [address] [phone] * (ABNORMAL) Comprehensive Metabolic Panel (07/04/2025 11:05 AM EDT) Only the most recent of2 resultswithin the time period is included. Sodium 140 135 - 145 mmol/L [facility] Potassium 4.1 3.3 - 5.1 mmol/L [facility] Chloride 108 96 - 108 mmol/L [facility] Carbon Dioxide 24 22 - 29 mmol/L [facility] Anion Gap 12 12 - 20 [facility] Urea Nitrogen (BUN) 15 9 - 16 mg/dL [facility] Creatinine, Serum 0.87 0.5 - 1.4 mg/dL [facility] Estimated Glomerular Filt Rate >60 [facility] Comment:Chronic Kidney Disea se: Estimated GFR < 60 mL/min/1.06v7Gdwtru Kidney Disease: Estimated GFR < 15 mL/min/1.73m2 Glucose 163(H) 60 - 115 mg/dL [facility] Calcium 8.9 8.4 - 10.2 mg/dL [facility] Bilirubin, Total 0.5 0.0 - 1.0 mg/dL [facility] Aspartate Amino Transferase 35 5 - 37 U/L [facility] Alanine Aminotransferase 30 0 - 40 U/L [facility] Total Protein 7.4 6.5 - 8.0 g/dL [facility] Albumin Level 4.3 3.5 - 5.0 g/dL [facility] Alkaline Phosphatase 116 39 - 117 U/L [facility] 07/04/2025 11:0 5 AM EDT 07/04/2025 2:21 PM EDT us Corey Carcamo MD LAB BLOOD ORDERABL ES Final Result [facility] [address] [place] [address] [phone] * (ABNORMAL) POCT Glucose (07/04/2025 9:47 AM EDT) Only the most recent of2 resultswithin the time period is included. Glucose Blood, POC 281(A) 60 - 200 mg/dL QC Media Lot # [id number] Lot# Expiration Date [id number] Blood Capillary blood specimen / Unknown 07/04/2025 9:47 AM EDT Devi Jones MD POINT OF CARE TEST ENTER/EDIT OR DERABLES Final Result * Lower Extremity Venous Duplex (06/28/2025 12:00 PM EDT) 06/28/2025 12:0 0 PM EDT Narrative [facility] - 06/28/2025 1:03 PM EDT [address] [address] Ultrasound Report Signed Patient: Olive Tobias MR#: [id number] 7 : 1955 Acct:[id number] Age/Sex: 70 / M ADM Date: 06/28/25 Loc: .ED Attending Dr: Ordering Physician: Rahel Jiménez Date of Service: 06/28/25 Procedure(s): US venous duplex LE LT Accession Number(s): [id number] cc: Corey Canseco MD; Rahel Jiménez Reason [...] 06/28/25 1300 DD/ 1200 TD/TT: 06/28/25 1224 [employer] Counter Clerk: Procedure Note Donotuseinterpreter, Image - 06/28/[address] [address] Ultrasound Report Signed Patient: Iona Tobias#: [id number] 7 : 6Acct:[id number] Age/Sex: 70 / MADM Date: 06/28/25 Loc: HO.ED Attending Dr: Ordering Physician: Rahel Jiménez Date of Service: 06/28/25 Procedure(s): US venous duplex LE LT Accession Number(s): [id number] cc: Corey Canseco MD; Rahel Jiménez Reason [...] 06/28/25 1300 DD/ 1200 TD/TT: 06/28/25 1224 [employer] Counter Clerk: NANCY [facility] External Provider CV VASC ULAR PROCEDURES Final Result Performing Organization Address [facility] Co de Phone Number [facility] [address] [place] [phone] * High Sensitivity Troponin I (06/28/2025 11:53 AM EDT) [facility] TROPONIN I HIGH SENSITIVITY <2.7 <3.5 - 35.0 ng/L [facility] Comment:The [place] high sens itivity Troponin-I results should beused in conjunction with other diagnostic information suchas ECG, clinical observations and information, and patientsymptoms to aid in the diagnosis of AR. 06/28/2025 11:5 3 AM EDT 06/28/2025 11:56 AM EDT Generic External Data Provider LAB BLOOD ORDERAB LES Final Result Performing Organization Address [facility] Co de Phone Number [facility] [address] [place] [phone] * Magnesium (06/28/2025 11:53 AM EDT) [facility] Magnesium 2.0 1.6 - 2.6 mg/dL [facility] 06/28/2025 11:5 3 AM EDT 06/28/2025 11:56 AM EDT us Generic External Data Provider LAB BLOOD ORDERAB LES Final Result [facility] [address] [place] [address] [phone] * XR Lumbar Spine Complete 4+ Views (04/24/2025 12:25 PM EDT) Anatomical Region Laterality Modality Spine, L-spine Radiographic Kristi ging 04/24/2025 12:2 5 PM EDT Narrative 04/24/2025 2:42 PM EDT [facility] [address] [place] [address] XRay Report Signed Patient: Olive Tobias MR#: [id number] 7 : 1955 Acct:[id number] Age/Sex: 69 / M ADM Date: 04/24/25 Loc: SABRINA Attending Dr: Bennie HUI Ordering Physician: Bennie Morales Date of Service: 04/24/25 Procedure(s): XR lumbar spine 4V min Accession Number(s): [id number] cc: Corey Canseco MD; Bennie Morales EXAMINATION: [...] 04/24/25 1440 DD/ 1225 TD/TT: 04/24/25 1329 [employer] Counter Clerk: Procedure Note Donotuseinterpreter, Image - 04/24/2025 [facility] [address] [place] [address] Drive [address] [place] [address] XRay Report Signed Patient: Iona Tobias#: [id number] 7 : 1955cct:[id number] Age/Sex: 69 / MADM Date: 04/24/25 Loc: ERICKSONAneudyRADHA Attending Dr: Bennie HUI Ordering Physician: Bennie Morales Date of Service: 04/24/25 Procedure(s): XR lumbar spine 4V min Accession Number(s): [id number] cc: Corey Canseco MD; Bennie Morales EXAMINATION: [...] 04/24/25 1440 DD/ 1225 TD/TT: 04/24/25 1329 [employer] Counter Clerk: [facility] External Provider IMG XR PROCEDURES Final Result * (ABNORMAL) POCT HGB A1C (04/21/2025 10:26 AM EDT) Hemoglobin A1C 6.6(A) 4.0 - 5.7 % QC Media Lot # [id number] Lot# Expiration Date ,[id number] Blood 04/21/2025 10:2 6 AM EDT Result [facility] Corey Carcamo MD POINT OF CARE TEST ENTER/EDIT ORDERABLES Final Result * Hm Colonoscopy (04/10/2023 12:03 PM EDT) Марина Provider HEALTH MAINTENANCE Final Result * Hepatitis C Antibody with Reflex to HCV, RNA, Quantitative, Real-Time PCR (09/24/2022 10:33 AM EST) Hepatitis C Antibody NON-REACT MARK NON-REACT MARK [employer] Index <0.02 <1.00 [employer] Comment: HCV antibody was non-reactive. There is no laboratory evidence of HCV infection. In most cases, no further action is required. However, if recent HCV exposure is suspected, a test for HCV RNA (test code 53665) is suggested. For additional information please refer to http://education.[employer]/faq/ZGN16l6 (This link is being provided for informational/ educational purposes only.) 09/24/2022 10:3 3 AM EST 09/24/2022 10:33 AM EST Narrative [facility] - 09/24/2022 9:25 PM EST FASTING:NO FASTING: NO Corey Carcamo MD LAB BLOOD ORDERABL ES Final Result [facility] [address] [facility], [address] [place] [address] [employer] [address] [facility], ([address]) [place] [address] from Last 3 Months or Most Recently Relevant to Health Maintenance Insurance [facility] MEDICARE REPLACEMENT [place], [place] D[place]AL - [facility] [place] Care Teams Plastics Sheet Finishing Press Operator Relationship Specialty Start Date End Date ChambersCorey Grace MD [address] [place] [address] PCP - General Internal Medicine 09/09/19
--- OUTSIDE RECORDS SUMMARY | 2025-07-06 10:01 | XMS_ITS | Encounter Summary ---
Author Organization [employer] Address [address] [facility] 7t [place] [address] Care Team Providers Care Chlorine Cells Operator Name Role Phone Corey Canseco MD Primary Care Prov ider Encounter Details Date Type Department Care Team ([facility] st Contact Info) Description 06/01/2024 Orders Only [facility] [address] [place] [address] Corey Canseco MD [address] [place] [address] Social History Tobacco Use Types Packs/Day Years [...] Description 07/18/2025 2:30 PM EST Office Visit [facility] [address] [place] [address] Akira Chun, DMD [address] [place] [address] 07/24/2025 9:00 AM EST Office Visit [facility] [address] [place] [address] Akira Chun, DMD [address] [place] [address] 01/04/2026 8:00 AM EDT Office Visit [facility] [address] [place] [address] Nettie Everett documented as of this encounter Visit Diagnoses Not on filedocumented in this encounter Additional Health Concerns Assessment Noted Time PHQ-9 Depression Total Score: 9 05/19/20 24 9:41 AM EDT documented as of this encounter Care Teams Chlorine Cells Operator Relationship Specialty Start Date End Date Corey Canseco MD [address] [place] [phone] PCP - General Internal Medicine 09/09/19 documented as of this encounter
--- OUTSIDE RECORDS SUMMARY | 2025-07-06 10:01 | XMS_ITS | Encounter Summary ---
Author Organization [employer] Address [address] [facility] [address]t [place] [address] Care Team Providers Care Ply Splicer Name Role Phone Corey Canseco MD Primary Care Prov ider Reason for Visit * Reason Comments Med Refill Encounter Details Date Type Department Care Team ([facility] st Contact Info) Description 07/04/2024 Refill [facility] PEDS [address] [place] [address] Corey Canseco MD [address] [place] [address] Social History Tobacco Use Types Packs/Day Years [...] PM EST Office Visit [facility] [address] [place] [address] Akira Chun DMD [address] [place] [address] 07/24/2025 9:00 AM EST Office Visit [facility] [address] [place] [address] Akira Chun DMD [address] [place] [address] 01/04/2026 8:00 AM EDT Office Visit [facility] [address] [place] [address] Nettei Everett documented as of this encounter Visit Diagnoses Not on filedocumented in this encounter Additional Health Concerns Assessment Noted Time PHQ-9 Depression Total Score: 9 05/19/20 24 9:41 AM EDT documented as of this encounter Care Teams Ply Splicer Relationship Specialty Start Date End Date Corey Canseco MD [address] [place] [address] PCP - General Internal Medicine 09/09/19 documented as of this encounter
--- OUTSIDE RECORDS SUMMARY | 2025-07-06 10:01 | XMS_ITS | Encounter Summary ---
Author Organization [employer] Address [address] [facility] 7t [place] [address] Care Team Providers Care Lead Manufacturing Technician Name Role Phone Corey Canseco MD Primary Care Prov ider Encounter Details Date Type Department Care Team (Late st Contact Info) Description 07/04/2025 Orders Only [facility] [address] [place] [address] Provider, MD Марина Social History Tobacco Use [...] 2:30 PM EST Office Visit [facility] ADULT DENTAL [address] [place] [address] Akira Chun, DMD [address] [place] [address] 07/24/2025 9:00 AM EST Office Visit [facility] ADULT DENTAL [address] [place] [address] Akira Chun, DMD [address] [place] [address] 01/04/2026 8:00 AM EDT Office Visit [facility] ADULT DENTAL [address] [place] [address] Nettie Everett documented as of this encounter Procedures Procedure Name Priority Date/Time Associated Diagnosis Comments HM DIABETES EYE EXAM Routine 07/04/2025 2:21 PM EDT CBC WITH AUTO DIFFERENTIAL Routine 07/04/2025 11:05 AM EDT HEMOGLOBIN A1C Routine 07/04/2025 11:05 AM EDT LIPID PANEL, STANDARD Routine 07/04/2025 11:05 AM EDT COMPREHENSIVE METABOLIC PANEL Routine 07/04/2025 11:05 AM EDT documented in this encounter Results * Diabetes Eye Exam (07/04/2025 2:21 PM EDT) [facility] Provider HEALTH MAINTENANCE Final Result * (ABNORMAL) Lipid Panel, Standard (07/04/2025 11:05 AM EDT) Triglycerides 238(H) <150 mg/dL [facility] Comment:Slight Lipemia.Lyric able Triglyceride: less than 150 mg/dLBorderline High Triglyceride 150-199 mg/dLHigh Triglyceride: 200-499 mg/dLVery High Triglyceride: greater than or equal to 5OO mg/dL Cholesterol 138 <200 mg/dL [facility] Comment:Desirable Cholestero l: less than 200 mg/dLBorderline High Cholesterol: 200-239 mg/dLHigh Cholesterol: greater than 239 mg/dL LDL Cholesterol Calculated 58 <100 mg/dL [facility] Comment:Desirable LDL: less than 100 mg/dLNear Optimal/Above Optimal LDL: 110- 129 mg/dLBorderline High LDL: 130-159 mg/dLHigh LDL: 160-189 mg/dLVery High LDL: greater than or equal to 190 mg/dL HDL Cholesterol 33(L) >40 mg/dL [facility] Comment:Desirable HDL: great er than 40 mg/dL Note: This HDL assay may give artificially low results in patients with liver disease. 07/04/2025 11:0 5 AM EDT 07/04/2025 2:21 PM EDT Corey Carcamo MD LAB BLOOD ORDERABL ES Final Result [facility] [address] [place] [address] [phone] * (ABNORMAL) Comprehensive Metabolic Panel (07/04/2025 11:05 AM EDT) Sodium 140 135 - 145 mmol/L [facility] Potassium 4.1 3.3 - 5.1 mmol/L [facility] Chloride 108 96 - 108 mmol/L [facility] Carbon Dioxide 24 22 - 29 mmol/L [facility] Anion Gap 12 12 - 20 [facility] Urea Nitrogen (BUN) 15 9 - 16 mg/dL [facility] Creatinine, Serum 0.87 0.5 - 1.4 mg/dL [facility] Estimated Glomerular Filt Rate >60 [facility] Comment:Chronic Kidney Disea se: Estimated GFR < 60 mL/min/1.77v1Evtxmu Kidney Disease: Estimated GFR < 15 mL/min/1.73m2 Glucose 163(H) 60 - 115 mg/dL [facility] Calcium 8.9 8.4 - 10.2 mg/dL [facility] Bilirubin, Total 0.5 0.0 - 1.0 mg/dL [facility] Aspartate Amino Transferase 35 5 - 37 U/L [facility] Alanine Aminotransferase 30 0 - 40 U/L [facility] Total Protein 7.4 6.5 - 8.0 g/dL [facility] Albumin Level 4.3 3.5 - 5.0 g/dL [facility] Alkaline Phosphatase 116 39 - 117 U/L [facility] 07/04/2025 11:0 5 AM EDT 07/04/2025 2:21 PM EDT us Corey Carcamo MD LAB BLOOD ORDERABL ES Final Result [facility] [address] [place] [address] [phone] * (ABNORMAL) Hemoglobin A1c (07/04/2025 11:05 AM EDT) Hemoglobin A1c 6.7(H) <6.0 % [facility] Comment:Hemoglobin A1C Refer ence Range Adults: 4.8 - 6.0 % Non diabetic: < 6.0 % Goal: < 7.0 %Additional Action Suggested: > 8.0 %Note: Hemoglobin A1c results are invalid for patients with abnormal amounts of HbF. Blood transfusions may impact the HbA1c concentration in the patient sample. Estimated Average Glucose 146 mg/dL [facility] Comment:eAG = Estimated ave rage glucose which is %A1C expressed asaverage glucose, using the formula of the S0Z-XkcowvlZfzdrke Glucose study (ADAG), Diabetes Care, Vol.31,#8,Apr. 2007 07/04/2025 11:0 5 AM EDT 07/04/2025 2:44 PM EDT us Corey Carcamo MD LAB BLOOD ORDERABL ES Final Result [facility] [address], [place] [phone] * (ABNORMAL) CBC auto differential (07/04/2025 11:05 AM EDT) White Blood Count 5.4 4.8 - 10.8 X10*3/uL [facility] Red Blood Count 5.18 4.60 - 5.80 X10*6/uL [facility] Hemoglobin 14.7 14.0 - 18.0 g/dl [facility] Hematocrit 46.0 42.0 - 52.0 % [facility] Mean Corpuscular Volume 88.8 80.0 - 98.0 fL [facility] Mean Corpuscular Hemoglobin 28.4 27.0 - 33.0 pg [facility] Mean Corpuscular HGB Conc 32.0 31.0 - 36.0 g/dl [facility] Red Cell Distribution Width 14.8 11.0 - 16.0 % [facility] Platelet Count 168 160 - 400 X10*3/uL [facility] Mean Platelet Volume 9.2(L) 9.4 - 12.4 fL [facility] Neutrophils Percent Auto 71.6 45 - 73 % [facility] Imm Gran Pct Auto 0.9(H) 0.0 - 0.4 % [facility] Lymphocytes Percent Auto 17.6(L) 20 - 40 % [facility] Monocytes Percent Auto 7.8 2 - 11 % [facility] Eosinophils Percent Auto 1.9 0 - 4 % [facility] Basophils Percent Auto 0.2 0 - 2 % [facility] NRBC Pct Auto 0.0 0.0 - 0.2 /100WBC [facility] Neutrophils Absolute Auto 3.9 2.0 - 8.3 x10*3/uL [facility] Imm Gran Abs Auto 0.05(H) 0.00 - 0.03 X10*3/uL [facility] Lymphocytes Absolute Auto 1.0(L) 1.2 - 4.9 X10*3/uL [facility] Monocytes Absolute Auto 0.4 0.1 - 1.2 X10*3/uL [facility] Eosinophils Absolute Auto 0.1 0.0 - 0.4 X10*3/uL [facility] Basophils Absolute Auto 0.0 0.0 - 0.2 X10*3/uL [facility] NRBC Abs Auto 0.000 0.0 - 0.012 X10*3/uL [facility] 07/04/2025 11:0 5 AM EDT 07/04/2025 2:44 PM EDT us Corey Carcamo MD LAB BLOOD ORDERABL ES Final Result [facility] [address] [place] [address] [phone] documented in this encounter Visit Diagnoses Not on filedocumented in this encounter Additional Health Concerns Assessment Noted Time PHQ-9 Depression Total Score: 3 05/29/20 25 9:22 AM EDT documented as of this encounter Care Teams Lead Manufacturing Technician Relationship Specialty Start Date End Date Corey Canseco MD [address] [place] [phone] PCP - General Internal Medicine 09/09/19 documented as of this encounter
--- OUTSIDE RECORDS SUMMARY | 2025-07-06 10:01 | XMS_ITS | Encounter Summary ---
Author Organization [employer] Address [address] [facility] 7 [place] [address] Care Team Providers Care Industrial Retrofit Designer Name Role Phone Corey Canseco MD Primary Care Prov ider Reason for Visit * Reason Onset Date Comments Nurse Triage 07/04/2025 Encounter Details Date Type Department Care Team ([facility] st Contact Info) Description 07/04/2025 Telephone [facility] [address] [place] [address] Corey Canseco MD [address] [place] [address] Nurse Triage Social History Tobacco Use Types [...] caller accepted this outcome. Contact pt at [phone] documented in this encounter Plan of Treatment Upcoming Encounters Date Type Department Care Team (Late st Contact Info) Description 07/18/2025 2:30 PM EST Office Visit [facility] ADULT DENTAL [address] [place] [address] Akira Chun, DMD [address] [place] [address] 07/24/2025 9:00 AM EST Office Visit [facility] ADULT DENTAL [address] [place] [address] Akira Chun, DMD [address] [place] [address] 01/04/2026 8:00 AM EDT Office Visit [facility] ADULT DENTAL [address] [place] [address] Nettie Everett documented as of this encounter Visit Diagnoses Not on filedocumented in this encounter Additional Health Concerns Assessment Noted Time PHQ-9 Depression Total Score: 3 05/29/20 25 9:22 AM EDT documented as of this encounter Care Teams Industrial Retrofit Designer Relationship Specialty Start Date End Date Corey Canseco MD [address] [place] [address] PCP - General Internal Medicine 09/09/19 documented as of this encounter
--- OUTSIDE RECORDS SUMMARY | 2025-07-06 10:01 | XMS_ITS | Encounter Summary ---
Author Organization [employer] Address [address] [facility] [address] [place] [address] Care Team Providers Care Casting Supervisor Name Role Phone Corey Canseco MD Primary Care Prov ider Encounter Details Date Type Department Care Team (Latest Contact Info) Description 09/28/2020 Abstract [facility] CONVERSIONS Dental, Provider, DDS Social History [...] Description 07/18/2025 2:30 PM EST Office Visit [facility] ADULT DENTAL [address] [place] [address] Akira Chun, DMD [address] [place] [address] 07/24/2025 9:00 AM EST Office Visit [facility] ADULT DENTAL [address] [place] [address] Akira Chun, DMD [address] [place] [address] 01/04/2026 8:00 AM EDT Office Visit [facility] ADULT DENTAL [address] [place] [address] Nettie Everett documented as of this encounter Visit Diagnoses Not on filedocumented in this encounter Care Teams Casting Supervisor Relationship Specialty Start Date End Date Corey Canseco MD [address] [place] [address] [place] [address] PCP - General Internal Medicine 09/09/19 documented as of this encounter
== END 2025-07-06 09:09 | disposition home or self-care (01) ==
LOC: HO.HOSX 09:08
PROVIDERS: Visit Provider Orthopaedic Surgery
DX: Z96.612 Presence of left artificial shoulder joint (principal); M25.512 Pain in left shoulder
CPT/HCPCS: 73030; 93005; 99212

== ENCOUNTER 2025-07-06 09:46 | Outpatient (AMB) | payer MEDICARE, SELFPAY ==
[2025-07-06 10:03] VITALS: BP 100/58; PULSE 68; BMI 45.4
--- NOTE | 2025-07-06 10:03 | MHC.OFFVIS ---
Vital Signs 07/06/25 10:03 Height 5 ft 7 in Weight 289 lb 10.998 oz BMI 45.4 BP 100/58 L Blood Pressure Location Lt brachial Position Sitting Pulse 68 Pulse Source Pulse Oximeter Intake Visit Reasons: f/up-per km- s/p cardioversion Reservation Manager Required: No Allergies iron Adverse Reaction (Severe, Verified 07/06/25 10:44) Rash ( from oral supplement) Medication List - Last Reconciled 07/06/25 by UMANG Lowery albuterol sulfate 90 mcg/actuation (Ventolin HFA) 2 puffs inhalation Q4-6H PRN apixaban (Eliquis) 5 mg PO BID Held on 02/22/25. Instructions: Resume on 02/23/25. Restart 02/23 atorvastatin 40 mg PO QAM blood sugar diagnostic (FreeStyle Lite Strips) As directed celecoxib 200 mg PO BID PRN cephalexin 500 mg PO BID cetirizine 10 mg PO QAM cholecalciferol (vitamin D3) 25 mcg PO QAM cyanocobalamin (vitamin B-12) (Vitamin B-12) 1,000 mcg PO QAM empagliflozin (Jardiance) 25 mg PO QAM flecainide 50 mg PO Q12H gabapentin 300 mg PO BID lancets (Easy Touch Twist Lancets) As directed lisinopril 10 mg PO QAM methylcellulose (laxative) (Citrucel) 500 mg PO DAILY metoprolol tartrate 12.5 mg PO BID montelukast 10 mg PO BEDTIME semaglutide (Ozempic) 0.5 mg subcut TU tamsulosin 0.4 mg PO BEDTIME tramadol 50 mg PO BID PRN HPI HPI f/up-per km- s/p cardioversion: Details: Olive is a 70-year-old male with past medical history of morbid obesity, hyperlipidemia, sleep apnea with CPAP use, nonobstructive CAD, atrial fibrillation status post ablation 04/2025 who had recurrent AFib on 06/28 and was cardioverted in the emergency room and now presents for follow-up. Today he reports he has been doing well since his cardioversion last week. He has not had any known recurrent heart palpitations or atrial fibrillation. He believes his trigger was heavy alcohol use in the days prior to the recurrent AFib. He does have a [employer] mobile device at home and is able to track his rhythm. He has a follow-up with electrophysiology in 2 weeks. No chest discomfort at rest or with activity. No concerning shortness of breath, PND, orthopnea or edema. He is being treated for cellulitis on his left lower extremity and states the area is improving. He tries to remain physically active but does no routine exercise. He is compliant with his CPAP. No bleeding issues reported. [facility] Medical History Family history of anesthesia complication Arthritis History of cardioversion Atrial fibrillation Asthma HTN (hypertension) Elevated cholesterol Diabetes Sciatica Sleep apnea Shoulder pain with history of repair of rotator cuff Surgical History History of total replacement of left shoulder joint H/O colonoscopy History of surgical removal of ganglion cyst Hx of rotator cuff surgery History of cardiac cath Hx of elbow surgery History of carpal tunnel release Hx of eye surgery Hx of tonsillectomy Hx of hernia repair Hx of knee surgery Family History Father Heart disease HTN (hypertension) Mother Atrial fibrillation Sister Diabetes Social History Household Members: Spouse Housing: House Are you a primary animal caretaker to a significant other at home: No Do you presently have visiting nurse or other home services: No Alcohol intake: current Alcohol intake frequency: a few times a week Patient Tobacco Use Status: Never used Tobacco e-Cigarette/Vaping Use: Never Used Substance Use Type: Marijuana service: No Current 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 status: retired Review of Systems Const All systems reviewed & are unremarkable except as noted in HPI and below ENT Denies dizziness Card Denies chest pain, Denies chest pain at rest, Denies chest pain with activity, Denies rapid heart rate, Denies pedal edema, Denies edema, Denies leg edema, Denies lightheadedness, Denies palpitations, Denies dyspnea, Denies dyspnea on exertion and Denies orthopnea Resp Denies cough, Denies dyspnea and Denies dyspnea on exertion GI Denies hematochezia and Denies change in stool character Musc Denies abnormal gait, Denies limited range of motion, Denies muscle cramps, Denies muscle weakness, Denies numbness, Denies radiating pain into limb, Denies stiffness and Denies tingling Neuro Denies abnormal gait, Denies dizziness, Denies numbness and Denies tingling Endo Denies palpitations Physical Exam Vital Signs: Last Vital Signs Pulse 68 07/06/25 10:03 BP 100/58 L 07/06/25 10:03 BMI result Body Mass Index 45.4 Const General: cooperative, comfortable and no acute distress Orientation/consciousness: patient oriented x3 Neck Neck: Yes normal visual inspection Resp Effort & Inspection: normal respiratory effort Auscultation: clear to auscultation bilaterally, no crackles, no rales, no rhonchi and no wheezes Cardio Rate: regular rate Rhythm: regular rhythm Heart sounds: S1 normal heart sound present, S2 normal heart sound present, no gallops and no murmurs Neuro General: patient oriented x3 Extrem Other: mild redness left dinh - area of cellulitis that is currently being treated General: No no pedal edema and No calf tenderness Psych Appearance: grossly normal Mental Status: mental status grossly normal Speech and movement: Normal speech and movement present Office Procedures EKG Details: Today, read by me, sinus rhythm with first-degree AV block, can not exclude prior anterior infarct, rate 68, QTC 391 milliseconds [id number], Complete Assessment & Plan Assessment & Plan (1) Atrial fibrillation: Code(s): I48.91 - Unspecified atrial fibrillation Category: Medical Plan: History of paroxysmal atrial fibrillation, with cardioversion in the past and antiarrhythmic use. He did undergo atrial fibrillation ablation on 05/05/[address] Cotto. He did have an episode of heavy alcohol use then had recurrent atrial fibrillation presenting to the ER 06/28/2025. Cardioversion was done in the emergency room with successful conversion after 2 shocks to sinus rhythm. He was continued on flecainide 50 mg b.i.d. in his metoprolol dose was increased to 25 mg b.i.d.. He tells me he feels better on the 12.5 mg b.i.d. which is the dose he is currently on. His EKG today is showing sinus rhythm with first-degree AV block, rate 68. An EKG in the past has also shown first-degree AV block, but it is new since last EKG done. No med changes made at this time. Continue Eliquis for anticoagulation without interruption. Electrophysiology follow-up in 2 weeks. Use [employer] mobile device to monitor rhythm. Cardiology follow-up here October 2025. (2) Coronary artery disease: Code(s): I25.10 - Atherosclerotic heart disease of [place] coronary artery without angina pectoris Category: Medical Plan: History of nonobstructive CAD with cardiac catheterization September 2022 showing mild proximal LAD stenosis. He has no anginal symptoms. Signs and symptoms of angina reviewed. Not on aspirin as he is on Eliquis. On atorvastatin with ideal LDL goal less than 70. Continue metoprolol. (3) History of cardiac cath: Comment: 09/19/2022, left main, left circumflex, RCA all normal, mild proximal LAD stenosis 30-40%. Code(s): Z98.890 - Other specified postprocedural states Category: Surgical Plan: As above (4) Hyperlipidemia: Code(s): E78.5 - Hyperlipidemia, unspecified Category: Medical Plan: [place] LDL goal less than 70. Labs done 07/04/2025 shows LDL 58, AST 35, ALT 30. Continue atorvastatin 40 mg daily. Plan I discussed with the patient the importance of continuing current medications for atrial fibrillation and the need to avoid alcohol as a trigger. We reviewed the improvement in cellulitis with antibiotics and emphasized the importance of monitoring the condition. I advised the patient to closely monitor blood sugar levels, considering the impact of infection and the new glucose meter. We discussed the reduced dose of metoprolol due to low blood pressure and the need for ongoing monitoring. The patient was informed about the use of the CPAP machine and its modification to prevent drying out. Follow-up appointments with cardiologists were confirmed, and the patient was advised to report any recurrent symptoms or concerns. Medications: Changed From metoprolol tartrate Dose increase to 25mg twice daily. 25 mg PO BID 90 tabs 3RF To metoprolol tartrate Dose increase to 25mg twice daily. 12.5 mg PO BID Patient Instructions: - Continue taking flecainide and metoprolol as prescribed. - Avoid alcohol to prevent atrial fibrillation episodes. - Monitor the cellulitis area for any changes and continue antibiotics. - Check blood sugar levels regularly, especially with the new meter. - Monitor blood pressure and report any significant changes. - Use the CPAP machine each night - Attend follow-up appointments with cardiologists as scheduled. Patient was informed and verbally consented to the use of an ambient scribe for clinic note documentation during this visit. Visit time spent on chart review, interview, assessment, orders, documentation. Coding Level of Care Code Est Pt Level 4 (35412) Complex EM visit Add On G2211 Diagnoses Atrial fibrillation I48.91 Coronary artery disease I25.10 History of cardiac cath Z98.890 Hyperlipidemia E78.5 CPT Codes EKG - CPT: 60862-[id number], Complete ([id number]) Time Spent (min) 28
== END 2025-07-06 10:38 | disposition home or self-care (01) ==
LOC: HO.HCS 09:47
PROVIDERS: PCP Internal Medicine; Visit Provider Nurse Practitioner Family
DX: I48.91 Unspecified atrial fibrillation (principal); I25.10 Atherosclerotic heart disease of native coronary artery without angina pectoris; Z98.890 Other specified postprocedural states; E78.5 Hyperlipidemia, unspecified
CPT/HCPCS: 93010; 99214; G2211

== ENCOUNTER 2025-07-06 10:42 | Outpatient (AMB) | payer MEDICARE, SELFPAY ==
--- NOTE | 2025-07-06 10:43 | MHC.OFFVIS ---
Vital Signs 07/06/25 10:44 Height 5 ft 7 in Weight 289 lb BMI 45.3 Intake Visit Reasons: OV-L TSA 07/13/24-follow up Intake Note: Olive is a 69 year old right hand dominant male who presents today for a post operative appointment s/p Left TSA 07/13/24. He was instructed to continue with his home exercise plan. Patient rpeorts that his shoulder is feeling good. He has a procedure with the spine clinic in February which was very helpful for his back as well . Allergies iron Adverse Reaction (Severe, Verified 07/06/25 10:44) Rash ( from oral supplement) HPI HPI OV-L TSA 07/13/24-follow up: Details: 70-year-old gentleman now 1 year status post left shoulder replacement doing well. He is able to engage in daily activities without pain. He states he has a several medical issues but mostly concerning his legs and his lower extremity cellulitis. Overall he feels well. He has no complaints. He has no shoulder pain. He has happy with the surgery. [facility] Medical History Family history of anesthesia complication Arthritis History of cardioversion Atrial fibrillation Asthma HTN (hypertension) Elevated cholesterol Diabetes Sciatica Sleep apnea Shoulder pain with history of repair of rotator cuff Surgical History History of total replacement of left shoulder joint H/O colonoscopy History of surgical removal of ganglion cyst Hx of rotator cuff surgery History of cardiac cath Hx of elbow surgery History of carpal tunnel release Hx of eye surgery Hx of tonsillectomy Hx of hernia repair Hx of knee surgery Family History Father Heart disease HTN (hypertension) Mother Atrial fibrillation Sister Diabetes Social History Household Members: Spouse Housing: House Are you a primary medicare specialist to a significant other at home: No Do you presently have visiting nurse or other home services: No Alcohol intake: current Alcohol intake frequency: a few times a week Patient Tobacco Use Status: Never used Tobacco e-Cigarette/Vaping Use: Never Used Substance Use Type: Marijuana service: No Current 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 status: retired Physical Exam Vital Signs: BMI result Body Mass Index 45.3 Extrem Other: Portals clean dry and intact ER to 20 degrees Active abduction to 90 Passive abduction to 90 FF to 120 Results Reviewed Results Reviewed: I personally reviewed relevant radiographs. Left TSA in position unchanged from prior. Assessment & Plan Assessment & Plan (1) Status post total replacement of left shoulder: Code(s): Z96.612 - Presence of left artificial shoulder joint Category: Surgical Plan: Doing well. Continue activity as tolerated. May follow up as needed. Orders: Orders XR shoulder LT min 2V Today M25.519 - Pain in unspecified shoulder Coding Level of Care Code Est Pt Level 3 (83909) Diagnoses Status post total replacement of left shoulder Z96.612
[2025-07-06 10:44] VITALS: BMI 45.3
== END 2025-07-06 11:15 | disposition home or self-care (01) ==
LOC: HO.HOS 10:42
PROVIDERS: PCP Internal Medicine; Visit Provider Orthopaedic Surgery
DX: Z47.89 Encounter for other orthopedic aftercare (principal); Z96.612 Presence of left artificial shoulder joint
CPT/HCPCS: 99212

== ENCOUNTER → 2025-07-06 10:54 | Outpatient (BNV) | payer MEDICARE, SELFPAY | PROVIDERS: Visit Provider Radiology Diagnostic Radiology | DX: M19.012 Primary osteoarthritis, left shoulder (principal); Z96.612 Presence of left artificial shoulder joint | CPT/HCPCS: 73030 ==

== ENCOUNTER 2025-08-16 16:17 | Outpatient (REF) | payer MEDICARE, SELFPAY ==
--- OUTSIDE RECORDS SUMMARY | 2025-08-16 09:45 | XMS_ITS | Encounter Summary ---
Author Organization [employer] Address [address] [facility] 7t [place] [address] Care Team Providers Care Sod Cutter Name Role Phone Croey Canseco MD Primary Care Prov ider Encounter Details Date Type Department Care Team ([facility] Contact Info) Description 08/16/2025 9:45 AM EST Office Visit [facility] CHC MED & PEDS [address] [place] [address] Susanne Berger MD [address] [place] [address] Localized swelling of left thumb (Primary Dx); Primary hypertension Social History Tobacco Use Types [...] Sign Reading Time Taken Comments Blood Pressure 126/64 08/16/2025 10:00 AM EST Pulse 78 08/16/2025 10:00 AM EST Temperature 36.7 C (98 F) 08/16/2025 10:00 AM EST Respiratory Rate 20 08/16/2025 10:00 AM EST Oxygen Saturation - - Inhaled Oxygen Concentration - - Weight 130 kg (287 lb) 08/16/2025 10:00 AM EST Height - - Body Mass Index 44.95 07/04/2025 9:46 AM EDT documented in this encounter Progress Notes * Susanne Berger MD - 08/16/2025 9:45 AM EST Subjective Patient ID: Olive Tobias is a 70 y.o. male who presents for thumb injury. Olive Tobias, 70 years Paronychia of Finger Approximately one week prior to the visit, Olive Tobias developed redness, swelling, and tenderness around a fingernail after digging at the nail. He initially treated the area with hydrogen peroxide, triple antibiotic ointment, and a Band-Aid, but noted improvement when keeping the area dry. Hereports clear fluid drainage and increased redness, especially after manipulation. He has a historyof frequent skin infections and poor healing, with prior episodes of cellulitis, including one requiring hospitalization in the and four to five recurrences since then. He reports that the areawas more inflamed the night before the visit and that he has been picking at it. He also notes a tendency to break nails while working on cars and has a habit of picking at scabs. History of Cellulitis Reports multiple episodes of cellulitis since the , with the initial episode requiring nearly a week of hospitalization. States that he has had four to five additional episodes since then, oftenin the same location. The most recent episode was treated with a second course of antibiotics, which resolved the infection. Musculoskeletal Pain Reports chronic pain requiring Celebrex for relief. Diabetes Reports monitoring blood sugars regularly, with some morning values slightly above target. States that he has been on Ozempic and has experienced some weight loss, though weight fluctuates. Reports slowed digestion with Ozempic and difficulty controlling appetite. [facility] [place] very dry skin, especially in winter. States that he is on Eliquis and is aware of increasedrisk of bruising and bleeding. Review of Systems Constitutional: Negative for activity change, chills, fever and unexpected weight change. Respiratory: Negative for cough, shortness of breath and wheezing. Cardiovascular: Negative for chest pain, palpitations and leg swelling. Gastrointestinal: Negative for abdominal pain and blood in stool. Endocrine: Negative for polydipsia and polyuria. Genitourinary: Negative for decreased urine volume, difficulty urinating, dysuria and hematuria. Musculoskeletal: Negative for arthralgias and gait problem. Skin: Positive for wound. Negative for color change, pallor and rash. Neurological: Negative for dizziness and headaches. Hematological: Negative for adenopathy. Psychiatric/Behavioral: Negative for dysphoric mood, hallucinations, sleep disturbance and suicidalideas. The patient is not nervous/anxious. Objective BP 126/64 (BP Location: Left arm, Patient Position: Sitting, BP Cuff Size: Adult) Pulse78 Temp 98 ??F (36.7 ??C) (Oral) Resp 20 Wt 287 lb (130 kg) BMI 44.95 kg/m?? Physical Exam Vitals reviewed. Constitutional: General: He is not in acute distress. Appearance: He is obese. He is not ill-appearing, toxic-appearing or diaphoretic. HENT: Head: Normocephalic. Pulmonary: Effort: Pulmonary effort is normal. No respiratory distress. Breath sounds: Normal breath sounds. Abdominal: General: There is distension. Musculoskeletal: General: Normal range of motion. Right hand: Normal. Right lower leg: No edema. Left lower leg: No edema. Comments: Left thumb localized swelling and mild redness, crusting visible Skin: Findings: No rash. Neurological: General: No focal deficit present. Mental Status: He is alert and oriented to person, place, and time. Psychiatric: Mood and Affect: Mood normal. Behavior: Behavior normal. Assessment/Plan Paronychia: - Paronychia with drainage and erythema, likely due to local trauma and colonized skin. - Performed incision and drainage of the affected finger. Prescribed doxycycline for 7 days, twice daily. Sent wound culture for analysis. - Risks and side effects: Obtained consent for procedure. Recurrent cellulitis: - Recurrent cellulitis, previously treated with antibiotics, currently resolved. - Prescribed same antibiotic (doxycycline) as for prior episode due to history of recurrent infections and likely skin colonization. Diabetes mellitus: - Diabetes mellitus, on Ozempic, with self-monitored blood glucose showing some elevated morning values. - Continue current regimen with Ozempic. Encouraged ongoing self-monitoring of blood glucose. Anticoagulation and NSAID use: - On Eliquis and Celebrex, with increased risk of bleeding and bruising. - Advised awareness of bleeding risk, especially with trauma or injury. No changes to current medications. Xerosis: - Xerosis, especially in winter. - Recommended use of emollients such as Vaseline or coconut oil for skin hydration. Diagnoses and all orders for this visit: Localized swelling of left thumb - Wound Culture Primary hypertension Other orders - doxycycline (Vibra-Tabs) 100 MG tablet; Take 1 tablet (100 mg) by mouth 2 times daily for 7 days. documented in this encounter Plan of Treatment Upcoming Encounters Date Type Department Care Team (Late st Contact Info) Description 01/04/2026 8:00 AM EDT Office Visit [facility] ADULT DENTAL [address] [place] [address] Nettie Everett Scheduled Orders Name Type Priority Associated Diagnoses Orde r Schedule Wound Culture Microbiology Routine Localized swelling of left thumb Ordered: 08/16/2025 documented as of this encounter Goals Goal Patient Goal Type Associated Problems Recent Progress Patient-Stated? Author Help patients manage their type 2 diabetes Care Plan Help patients manage their type 2 diabetes No Carcamo Zorylee Weekly blood pressure task Care Plan Weekly blood pressure task No Carcamo Zorylee Help patients manage their type 2 diabetes Care Plan Help patients manage their type 2 diabetes No Carcamo, Zorylee Patient has chronic kidney disease Care Plan Patient has chronic kidney disease No Carcamo, Zorylee Weekly blood pressure task Care Plan Weekly blood pressure task No Carcamo Zorylee Patient has chronic kidney disease Care Plan Patient has chronic kidney disease No Carcamo Zorylee Weekly blood pressure task Care Plan Weekly blood pressure task No Carcamo Zorylee Weekly blood pressure task Care Plan Weekly blood pressure task No Carcamo Zorylee Patient has chronic kidney disease Care Plan Patient has chronic kidney disease No Carcamo Zorylee Patient has chronic kidney disease Care Plan Patient has chronic kidney disease No Carcamo Zorylee Weekly blood pressure task Care Plan Weekly blood pressure task No Sweetie Daniels Weekly blood pressure task Care Plan Weekly blood pressure task No Sweetie Daniels Patient has chronic kidney disease Care Plan Patient has chronic kidney disease No Sweetie Daniels Patient has chronic kidney disease Care Plan Patient has chronic kidney disease No Sweetie Daniels Weekly blood pressure task Care Plan Weekly blood pressure task No Benton Yeboah Weekly blood pressure task Care Plan Weekly blood pressure task No Benton Yeboah Patient has chronic kidney disease Care Plan Patient has chronic kidney disease No Benton Yeboah Patient has chronic kidney disease Care Plan Patient has chronic kidney disease No Benton Yeboah Weekly blood pressure task Care Plan Weekly blood pressure task No Susanne Berger MD Weekly blood pressure task Care Plan Weekly blood pressure task No Susanne Berger MD Patient has chronic kidney disease Care Plan Patient has chronic kidney disease No Susanne Berger MD Patient has chronic kidney disease Care Plan Patient has chronic kidney disease No Susanne Berger MD documented as of this encounter Visit Diagnoses Diagnosis Localized swelling of left thumb- Primary Primary hypertension Unspecified essential hypertension documented in this encounter Additional Health Concerns Active Problems Noted Date Diagnosed Date Help patients manage their type 2 diabetes 07/31 Weekly blood pressure task 07/31/2025 Help patients manage their type 2 diabetes 07/31 Patient has chronic kidney disease 07/31/2025 Weekly blood pressure task 07/31/2025 Patient has chronic kidney disease 07/31/2025 Weekly blood pressure task 08/15/2025 Weekly blood pressure task 08/15/2025 Patient has chronic kidney disease 08/15/2025 Patient has chronic kidney disease 08/15/2025 Weekly blood pressure task 08/16/2025 Weekly blood pressure task 08/16/2025 Patient has chronic kidney disease 08/16/2025 Patient has chronic kidney disease 08/16/2025 Weekly blood pressure task 08/16/2025 Weekly blood pressure task 08/16/2025 Patient has chronic kidney disease 08/16/2025 Patient has chronic kidney disease 08/16/2025 Weekly blood pressure task 08/16/2025 Weekly blood pressure task 08/16/2025 Patient has chronic kidney disease 08/16/2025 Patient has chronic kidney disease 08/16/2025 Assessment Noted Time PHQ-9 Depression Total Score: 3 05/29/20 25 9:22 AM EDT documented as of this encounter Care Teams Sod Cutter Relationship Specialty Start Date End Date Corey Canseco MD [address] [place] [id number] PCP - General Internal Medicine 09/09/19 documented as of this encounter
--- OUTSIDE RECORDS SUMMARY | 2025-08-16 18:54 | XMS_ITS | Encounter Summary ---
Author Organization [employer] Address [address] [facility] 7 [place] [address] Care Team Providers Care Flexible Nanny Name Role Phone Corey Canseco MD Primary Care Prov ider Reason for Visit * Reason Onset Date Comments Nurse Triage 08/16/2025 Encounter Details Date Type Department Care Team ([facility] st Contact Info) Description 08/16/2025 Telephone [facility] MEDICINE [address] [place] [address] Corey Canseco MD [address] [place] [address] Nurse Triage Social History Tobacco Use Types [...] Telephone Encounter - Kandice Francois RN - 08/16/2025 9:42 AM EST TC placed to pt for triage pt states that he had a hang nail on left thumb that not maybe infected,he states he has been doing daily soaks and cleaning the area however he feels as if the thumb nailneeds to evaluated. Patient states he feels as if it needs to be drained and is painful requesting to be seen today for evaluation. Patient denies fever or drainage to thumb at this time Protocol Used: No Protocol Available (Pediatric) Protocol-Based Disposition: See in Office or Video Visit Today Positive Triage Question: * Nursing judgment * All higher-acuity triage questions were negative. Care Advice Discussed: * Reasons To Call Back - New symptoms develop * Telephone Encounter - Sweetie Daniels - 08/16/2025 9:16 AM EST Symptom: Tongue Swelling Outcome: Schedule an urgent appointment (within 1 hour) or talk to a nurse or provider soon Reason: Getting worse The caller accepted this outcome. PCP Dr. [place] documented in this encounter Plan of Treatment Upcoming Encounters Date Type Department Care Team (Late st Contact Info) Description 01/04/2026 8:00 AM EDT Office Visit [facility] ADULT DENTAL [address] [place] [address] Nettie Everett documented as of this encounter Goals Goal Patient Goal Type Associated Problems Recent Progress Patient-Stated? Author Help patients manage their type 2 diabetes Care Plan Help patients manage their type 2 diabetes No Carcamo, Zorylee Weekly blood pressure task Care Plan Weekly blood pressure task No Carcamo, Zorylee Help patients manage their type 2 diabetes Care Plan Help patients manage their type 2 diabetes No Carcamo, Zorylee Patient has chronic kidney disease Care Plan Patient has chronic kidney disease No Carcamo, Zorylee Weekly blood pressure task Care Plan Weekly blood pressure task No Carcamo, Zorylee Patient has chronic kidney disease Care Plan Patient has chronic kidney disease No Carcamo, Zorylee Weekly blood pressure task Care Plan Weekly blood pressure task No Carcamo, Zorylee Weekly blood pressure task Care Plan Weekly blood pressure task No Carcamo, Zorylee Patient has chronic kidney disease Care Plan Patient has chronic kidney disease No Carcamo, Zorylee Patient has chronic kidney disease Care Plan Patient has chronic kidney disease No Carcamo, Zorylee Weekly blood pressure task Care Plan Weekly blood pressure task No Jeremiah Sweetie Weekly blood pressure task Care Plan Weekly blood pressure task No Jeremiah Sweetie Patient has chronic kidney disease Care Plan Patient has chronic kidney disease No Sweetie Daniels Patient has chronic kidney disease Care Plan Patient has chronic kidney disease No Sweetie Daniels Weekly blood pressure task Care Plan Weekly blood pressure task No Yeboah, Tossushmay Weekly blood pressure task Care Plan Weekly blood pressure task No Obinna Tossushmay Patient has chronic kidney disease Care Plan Patient has chronic kidney disease No Juan Yeboahy Patient has chronic kidney disease Care Plan Patient has chronic kidney disease No Juan Yeboahy Weekly blood pressure task Care Plan Weekly blood pressure task No Susanne Berger MD Weekly blood pressure task Care Plan Weekly blood pressure task No Susanne Berger MD Patient has chronic kidney disease Care Plan Patient has chronic kidney disease Susanne Padron MD Patient has chronic kidney disease Care Plan Patient has chronic kidney disease Susanne Padron MD documented as of this encounter Visit Diagnoses Not on filedocumented in this encounter Additional Health Concerns Active [...] documented as of this encounter Care Teams Flexible Nanny Relationship Specialty Start Date End Date Corey Canseco MD [address] [place] [id number] PCP - General Internal Medicine 09/09/19 documented as of this encounter
--- OUTSIDE RECORDS SUMMARY | 2025-08-16 18:54 | XMS_ITS | Encounter Summary ---
Author Organization [employer] Address [address] [facility] [address] 7[address] [place] [address] Care Team Providers Care Screwhead Polisher Name Role Phone Corey Canseco MD Primary Care Prov ider Encounter Details Date Type Department Care Team (Latest Contact Info) Description 08/16/2025 Travel Social History Tobacco Use Types Packs/Day [...] Description 01/04/2026 8:00 AM EDT Office Visit [facility] ADULT DENTAL [address] [place] [address] Nettie Everett documented as of this encounter [...] their type 2 diabetes No Carcamo Zorylee Patient has chronic kidney [...] Start Date End Date Corey Canseco MD [address] [place] [id number] PCP - General Internal Medicine 09/09/19 documented as of this encounter
--- OUTSIDE RECORDS SUMMARY | 2025-08-16 18:54 | XMS_ITS | Encounter Summary ---
Author Organization [employer] Address [address] [facility] 7 [place] [address] Care Team Providers Care Lumber Straightened Name Role Phone Corey Canseco MD Primary Care Prov ider Reason for Visit * Reason Onset Date Comments Insurance 08/16/2025 Encounter Details Date Type Department Care Team ([facility] Contact Info) Description 08/16/2025 Telephone [facility] MED & PEDS [address] [place] [address] Corey Canseco MD [address] [place] [address] Insurance Social History Tobacco Use Types Packs/Day Years [...] encounter Miscellaneous Notes * Telephone Encounter - Benton Yeboah - 08/16/2025 9:47 AM EST Pt was informed to please call insurance and update pcp/loc on day of visit. Pt stated he just renewed insurance wasn't sure why they added Gabriel Rothman he has not seen him in years. But that he would call and make switch shiv. documented in this encounter Plan of Treatment Upcoming Encounters Date Type Department Care Team (Late st Contact Info) Description 01/04/2026 8:00 AM EDT Office Visit [facility] CHC ADULT DENTAL [address] [place] [address] Nettie Everett documented as of this encounter Goals Goal Patient Goal Type Associated Problems Recent Progress Patient-Stated? Author Help patients manage their type 2 diabetes Care Plan Help patients manage their type 2 diabetes Jeremi Gauthier Weekly blood pressure task Care Plan Weekly blood pressure task No Carlos Alberto, Zoryjosephe Help patients manage their type 2 diabetes Care Plan Help patients manage their type 2 diabetes No Carcamo, Zorylee Patient has chronic kidney disease Care Plan Patient has chronic kidney disease No CarcamoMalourylee Weekly blood pressure task Care Plan Weekly [...] documented as of this encounter Care Teams Lumber Straightened Relationship Specialty Start Date End Date Corey Canseco MD [address] [place] [id number] PCP - General Internal Medicine 09/09/19 documented as of this encounter
--- OUTSIDE RECORDS SUMMARY | 2025-08-16 18:54 | XMS_ITS | Encounter Summary ---
Author Organization [employer] Address [address] [facility] 7t [place] [address] Care Team Providers Care Filter Press Pumper Name Role Phone Corey Canseco MD Primary Care Prov ider Encounter Details Date Type Department Care Team (Late st Contact Info) Description 11/11/2024 Orders Only [facility] [address] [place] [address] Provider, MD Марина Social History Tobacco Use [...] Description 01/04/2026 8:00 AM EDT Office Visit [facility] ADULT DENTAL [address] [place] [address] Nettie Everett documented as of this encounter [...] documented as of this encounter Care Teams Filter Press Pumper Relationship Specialty Start Date End Date Corey Canseco MD [address] [place] [address] PCP - General Internal Medicine 09/09/19 documented as of this encounter
--- OUTSIDE RECORDS SUMMARY | 2025-08-16 18:54 | XMS_ITS | Encounter Summary ---
Author Organization [employer] Address [address] [facility] 7 [place] [address] Care Team Providers Care Bunch Breaker Name Role Phone Corey Canseco MD Primary Care Prov ider Reason for Visit * Reason Comments Med Refill Encounter Details Date Type Department Care Team (Late Contact Info) Description 04/05/2023 Refill [facility] MED & PEDS [address] [place] [address] Corey Canseco MD [address] [place] [address] Mixed hyperlipidemia Social History Tobacco Use Types [...] Description 01/04/2026 8:00 AM EDT Office Visit [facility] ADULT DENTAL [address] [place] [address] Nettie Everett documented as of this encounter Visit Diagnoses Diagnosis Mixed hyperlipidemia documented in this encounter Additional Health Concerns Assessment Noted Time PHQ-9 Depression Total Score: 0 12/20/19 23 9:39 AM EDT documented as of this encounter Care Teams Bunch Breaker Relationship Specialty Start Date End Date Corey Canseco MD [address] [place] [address] PCP - General Internal Medicine 09/09/19 documented as of this encounter
--- OUTSIDE RECORDS SUMMARY | 2025-08-16 18:55 | XMS_ITS | Encounter Summary ---
Author Organization [employer] Address 75 [facility] 7t [place] [address] Care Team Providers Care Moveman Name Role Phone Corey Canseco MD Primary Care Prov ider Reason for Visit * Reason Comments Med Refill Encounter Details Date Type Department Care Team ([facility] st Contact Info) Description 07/04/2024 Refill [facility] CHC MED & PEDS [address] [place] [address] Corey Canseco MD [address] [place] [address] Social History Tobacco Use Types Packs/Day Years [...] Description 01/04/2026 8:00 AM EDT Office Visit [facility] ADULT DENTAL [address] [place] [address] Nettie Everett documented as of this encounter Visit Diagnoses Not on filedocumented in this encounter Additional Health Concerns Assessment Noted Time PHQ-9 Depression Total Score: 9 05/19/20 24 9:41 AM EDT documented as of this encounter Care Teams Moveman Relationship Specialty Start Date End Date Corey Canseco MD [address] [place] [address] PCP - General Internal Medicine 09/09/19 documented as of this encounter
--- OUTSIDE RECORDS SUMMARY | 2025-08-16 18:55 | XMS_ITS | Encounter Summary ---
Author Organization [employer] Address [address] [facility] 7t [place] [address] Care Team Providers Care Paving Inspector Name Role Phone Corey Canseco MD Primary Care Prov ider Reason for Visit * Reason Onset Date Comments Med Refill 03/27/2025 Encounter Details Date Type Department Care Team (Late st Contact Info) Description 03/27/2025 Refill [facility] MED & PEDS [address] [place] [address] Corey Canseco MD [address] [place] [address] Social History Tobacco Use Types Packs/Day Years [...] Description 01/04/2026 8:00 AM EDT Office Visit [facility] ADULT DENTAL [address] [place] [address] Nettie Everett documented as of this encounter Visit Diagnoses Not on filedocumented in this encounter Additional Health Concerns Assessment Noted Time PHQ-9 Depression Total Score: 0 12/01/19 25 9:07 AM EDT documented as of this encounter Care Teams Paving Inspector Relationship Specialty Start Date End Date Corey Canseco MD [address] [place] [address] PCP - General Internal Medicine 09/09/19 documented as of this encounter
--- OUTSIDE RECORDS SUMMARY | 2025-08-16 18:55 | XMS_ITS | Encounter Summary ---
Author Organization [employer] Address [address] [place] [address] 7 [place] [address] Care Team Providers Care Chief Nursing Officer Name Role Phone Corey Canseco MD Primary Care Prov ider Encounter Details Date Type Department Care Team (Latest Contact Info) Description 09/28/2020 Abstract [facility] CONVERSIONS Dental, Provider, DDS Social History [...] Description 01/04/2026 8:00 AM EDT Office Visit [facility] CHC ADULT DENTAL [address] [place] [address] Nettie Everett documented as of this encounter Visit Diagnoses Not on filedocumented in this encounter Care Teams Chief Nursing Officer Relationship Specialty Start Date End Date Corey Canseco MD [address] [place] [address] PCP - General Internal Medicine 09/09/19 documented as of this encounter
--- OUTSIDE RECORDS SUMMARY | 2025-08-16 18:55 | XMS_ITS | Encounter Summary ---
Author Organization [employer] Address [address] [facility] [address] 7[address] [place] [address] Care Team Providers Care Interline Clerk Name Role Phone Corey Canseco MD Primary Care Prov ider Encounter Details Date Type Department Care Team (Late st Contact Info) Description 12/25/2023 Orders Only [facility] MEDICINE [address] [place] [address] ProviderМарина MD Social History Tobacco Use Types [...] Description 01/04/2026 8:00 AM EDT Office Visit [facility] ADULT DENTAL [address] [place] [address] Nettie Everett documented as of this encounter [...] AM EDT Narrative 01/14/2024 4:15 PM EDT [address] [address] [address] Scan Report Signed Patient: Olive Tobias MR#: [id number] 7 : 1955 Acct:[id number] Age/Sex: 68 / M ADM Date: 01/14/24 Loc: HO.CT Attending Dr: Jon Meza MD Ordering Physician: Jon Meza MD Date of Service: 01/14/24 Procedure(s): CT shoulder LT wo IV con Accession Number(s): [id number] cc: Corey Canseco MD; Jon Meza MD [...] in OV> 01/14/24 1612 DD/ 0815 TD/TT: Rn Telephone Triage: NEREYDA Procedure Note Donotuseinterpreter, Image - 01/14/[address] [address] [address] Scan Report Signed Patient: Iona Tobias#: [id number] 7 : 6Acct:[id number] Age/Sex: 68 / MADM Date: 01/14/24 Loc: HO.CT Attending Dr: Jon Meza MD Ordering Physician: Jon Meza MD Date of Service: 01/14/24 Procedure(s): CT shoulder LT wo IV con Accession Number(s): [id number] cc: Corey Canseco MD; Jon Meza MD [...] in OV> 01/14/24 1612 DD/ 0815 TD/TT: Rn Telephone Triage: NEREYDA [facility] External Provider IMG CT PROCEDURES Final Result * Hm Colonoscopy (04/10/2023 12:03 PM EDT) Historical Provider HEALTH MAINTENANCE Final Result documented in this encounter Visit Diagnoses Not on filedocumented in this encounter Additional Health Concerns Assessment Noted Time PHQ-9 Depression Total Score: 6 12/24/19 24 9:28 AM EDT documented as of this encounter Care Teams Interline Clerk Relationship Specialty Start Date End Date Corey Canseco MD [address] [place] [phone] PCP - General Internal Medicine 09/09/19 documented as of this encounter
--- OUTSIDE RECORDS SUMMARY | 2025-08-16 18:55 | XMS_ITS | Encounter Summary ---
Author Organization [employer] Address [address] [facility] 7 [place] [address] Care Team Providers Care Management Liaison Name Role Phone Corey Canseco MD Primary Care Prov ider Reason for Referral * Imaging (Routine) - Closed Specialty Diagnoses / Procedures Referred By Contac t Referred To Contact Radiology Diagnoses Chronic left shoulder pain Procedures MR Shoulder w/o Contrast Left Corey Canseco MD [address] [place] [address] Phone: tel: fax: [address] [address] Phone: tel: fax: Referral ID Status Reason Start Date Expiration Date Visits Re quested Visits Authorized [id number] Closed 12/02/2023 12/01/2024 1 1 Encounter Details Date Type Department Care Team (Late st Contact Info) Description 12/02/2023 Orders Only [facility] CHC MED & PEDS [address] [place] [address] Corey Canseco MD [address] [place], [place] [phone] Chronic left shoulder pain (Primary Dx) Social [...] Description 01/04/2026 8:00 AM EDT Office Visit [facility] ADULT DENTAL [address] [place] [address] Nettie Everett Scheduled Orders Name Type Priority [...] documented as of this encounter Care Teams Management Liaison Relationship Specialty Start Date End Date Corey Canseco MD [address] [place] [address] PCP - General Internal Medicine 09/09/19 documented as of this encounter
--- OUTSIDE RECORDS SUMMARY | 2025-08-16 18:55 | XMS_ITS | Encounter Summary ---
Author Organization [email or web address] Address [address] [facility] [address] 7[address] [place] [address] Care Team Providers Care Journeyman Carpenter Name Role Phone Corey Canseco MD Primary Care Prov ider Encounter Details Date Type Department Care Team ([facility] st Contact Info) Description 09/30/2023 Abstract [facility] ADULT DENTAL [address] [place] [address] Maryana Penn, DDS [address] [place] [address] Social History Tobacco Use Types Packs/Day Years [...] Description 01/04/2026 8:00 AM EDT Office Visit [facility] ADULT DENTAL [address] [place] [address] Nettie Everett documented as of this encounter Visit Diagnoses Not on filedocumented in this encounter Additional Health Concerns Assessment Noted Time PHQ-9 Depression Total Score: 5 08/27/20 23 9:37 AM EST documented as of this encounter Care Teams Journeyman Carpenter Relationship Specialty Start Date End Date Corey Canseco MD [address] [place] [address] PCP - General Internal Medicine 09/09/19 documented as of this encounter
--- OUTSIDE RECORDS SUMMARY | 2025-08-16 18:55 | XMS_ITS | Encounter Summary ---
Author Organization [employer] Address [address] [facility] 7t [place] [address] Care Team Providers Care Technical Education Teacher Name Role Phone Corey Canseco MD Primary Care Prov ider Encounter Details Date Type Department Care Team ([facility] st Contact Info) Description 06/01/[address] [facility] CHC MED & PEDS [address] [place] [address] Corey Canseco MD [address] [place] [address] Social History Tobacco Use Types Packs/Day Years [...] Description 01/04/2026 8:00 AM EDT Office Visit [facility] ADULT DENTAL [address] [place] [address] Nettie Everett documented as of this encounter Visit Diagnoses Not on filedocumented in this encounter Additional Health Concerns Assessment Noted Time PHQ-9 Depression Total Score: 9 05/19/20 24 9:41 AM EDT documented as of this encounter Care Teams Technical Education Teacher Relationship Specialty Start Date End Date Corey Canseco MD [address] [place] [address] PCP - General Internal Medicine 09/09/19 documented as of this encounter
--- OUTSIDE RECORDS SUMMARY | 2025-08-16 18:55 | XMS_ITS | Encounter Summary ---
Author Organization [employer] Address [address] [facility] 7t [place] [address] Care Team Providers Care Pci Security Consultant Name Role Phone Corey Canseco MD Primary Care Prov ider Encounter Details Date Type Department Care Team (Late st Contact Info) Description 07/04/2025 Orders Only [facility] [address] [place] [address] Provider, MD Марина Social History Tobacco Use [...] 01/04/2026 8:00 AM EDT Office Visit [facility] ADULT DENTAL [address] [place] [address] Nettie Everett documented as of this encounter Procedures Procedure Name Priority Date/Time Associated Diagnosis Comments DIABETES EYE EXAM Routine 07/04/2025 2:21 PM EDT CBC WITH AUTO DIFFERENTIAL Routine 07/04/2025 11:05 AM EDT HEMOGLOBIN A1C Routine 07/04/2025 11:05 AM EDT LIPID PANEL, STANDARD Routine 07/04/2025 11:05 AM EDT COMPREHENSIVE METABOLIC PANEL Routine 07/04/2025 11:05 AM EDT documented in this encounter Results * Diabetes Eye Exam (07/04/2025 2:21 PM EDT) us Historical Provider HEALTH MAINTENANCE Final Result * (ABNORMAL) Lipid Panel, Standard (07/04/2025 11:05 AM EDT) Triglycerides 238(H) <150 mg/dL [facility] Comment:Slight Lipemia.Lyric able Triglyceride: less than 150 mg/dLBorderline High Triglyceride 150-199 mg/dLHigh Triglyceride: 200-499 mg/dLVery High Triglyceride: greater than or equal to 5OO mg/dL Cholesterol 138 <200 mg/dL [facility] Comment:Desirable Cholestero l: less than 200 mg/dLBorderline High Cholesterol: 200-239 mg/dLHigh Cholesterol: greater than 239 mg/dL LDL Cholesterol Calculated 58 <100 mg/dL [facility] Comment:Desirable LDL: less than 100 mg/dLNear Optimal/Above Optimal LDL: 110- 129 mg/dLBorderline High LDL: 130-159 mg/dLHigh LDL: 160-189 mg/dLVery High LDL: greater than or equal to 190 mg/dL HDL Cholesterol 33(L) >40 mg/dL [facility] Comment:Desirable HDL: great er than 40 mg/dL Note: This HDL assay may give artificially low results in patients with liver disease. 07/04/2025 11:0 5 AM EDT 07/04/2025 2:21 PM EDT us Corey Carcamo MD LAB BLOOD ORDERABL ES Final Result [facility] [address] [place] [address] [phone] * (ABNORMAL) Comprehensive Metabolic Panel (07/04/2025 11:05 AM EDT) Sodium 140 135 - 145 mmol/L [facility] Potassium 4.1 3.3 - 5.1 mmol/L [facility] Chloride 108 96 - 108 mmol/L [facility] Carbon Dioxide 24 22 - 29 mmol/L [facility] Anion Gap 12 12 - 20 [facility] Urea Nitrogen (BUN) 15 9 - 16 mg/dL [facility] Creatinine, Serum 0.87 0.5 - 1.4 mg/dL [facility] Estimated Glomerular Filt Rate >60 [facility] Comment:Chronic Kidney Disea se: Estimated GFR < 60 mL/min/[id number] Kidney Disease: Estimated GFR < 15 mL/min/1.73m2 Glucose 163(H) 60 - 115 mg/dL [facility] Calcium 8.9 8.4 - 10.2 mg/dL [facility] Bilirubin, Total 0.5 0.0 - 1.0 mg/dL [facility] Aspartate Amino Transferase 35 5 - 37 U/L [facility] Alanine Aminotransferase 30 0 - 40 U/L [facility] Total Protein 7.4 6.5 - 8.0 g/dL [facility] Albumin Level 4.3 3.5 - 5.0 g/dL [facility] Alkaline Phosphatase 116 39 - 117 U/L [facility] 07/04/2025 11:0 5 AM EDT 07/04/2025 2:21 PM EDT Corey Carcamo MD LAB BLOOD ORDERABL ES Final Result [facility] [address] [place] [phone] * (ABNORMAL) Hemoglobin A1c (07/04/2025 11:05 AM EDT) Hemoglobin A1c 6.7(H) <6.0 % [facility] Comment:Hemoglobin A1C Refer ence Range Adults: 4.8 - 6.0 % Non diabetic: < 6.0 % Goal: < 7.0 %Additional Action Suggested: > 8.0 %Note: Hemoglobin A1c results are invalid for patients with abnormal amounts of HbF. Blood transfusions may impact the HbA1c concentration in the patient sample. Estimated Average Glucose 146 mg/dL [facility] Comment:eAG = Estimated ave rage glucose which is %A1C expressed asaverage glucose, using the formula of the V3J-VbydyimWkigdmo Glucose study (ADAG), Diabetes Care, Vol.31,#8,2007 07/04/2025 11:0 5 AM EDT 07/04/2025 2:44 PM EDT us Corey Carcamo MD LAB BLOOD ORDERABL ES Final Result [facility] [address] [place] [address] [phone] * (ABNORMAL) CBC auto differential (07/04/2025 11:05 AM EDT) White Blood Count 5.4 4.8 - 10.8 X10*3/uL [facility] Red Blood Count 5.18 4.60 - 5.80 X10*6/uL [facility] Hemoglobin 14.7 14.0 - 18.0 g/dl [facility] Hematocrit 46.0 42.0 - 52.0 % [facility] Mean Corpuscular Volume 88.8 80.0 - 98.0 fL [facility] Mean Corpuscular Hemoglobin 28.4 27.0 - 33.0 pg [facility] Mean Corpuscular HGB Conc 32.0 31.0 - 36.0 g/dl [facility] Red Cell Distribution Width 14.8 11.0 - 16.0 % [facility] Platelet Count 168 160 - 400 X10*3/uL [facility] Mean Platelet Volume 9.2(L) 9.4 - 12.4 fL [facility] Neutrophils Percent Auto 71.6 45 - 73 % [facility] Imm Gran Pct Auto 0.9(H) 0.0 - 0.4 % [facility] Lymphocytes Percent Auto 17.6(L) 20 - 40 % [facility] Monocytes Percent Auto 7.8 2 - 11 % [facility] Eosinophils Percent Auto 1.9 0 - 4 % [facility] Basophils Percent Auto 0.2 0 - 2 % [facility] NRBC Pct Auto 0.0 0.0 - 0.2 /100WBC [facility] Neutrophils Absolute Auto 3.9 2.0 - 8.3 x10*3/uL [facility] Imm Gran Abs Auto 0.05(H) 0.00 - 0.03 X10*3/uL [facility] Lymphocytes Absolute Auto 1.0(L) 1.2 - 4.9 X10*3/uL [facility] Monocytes Absolute Auto 0.4 0.1 - 1.2 X10*3/uL [facility] Eosinophils Absolute Auto 0.1 0.0 - 0.4 X10*3/uL [facility] Basophils Absolute Auto 0.0 0.0 - 0.2 X10*3/uL [facility] NRBC Abs Auto 0.000 0.0 - 0.012 X10*3/uL [facility] 07/04/2025 11:0 5 AM EDT 07/04/2025 2:44 PM EDT us Corey Carcamo MD LAB BLOOD ORDERABL ES Final Result [facility] [address] [place] [address] [phone] documented in this encounter Visit Diagnoses Not on filedocumented in this encounter Additional Health Concerns Assessment Noted Time PHQ-9 Depression Total Score: 3 05/29/20 25 9:22 AM EDT documented as of this encounter Care Teams Pci Security Consultant Relationship Specialty Start Date End Date Corey Canseco MD [address] [place] [phone] PCP - General Internal Medicine 09/09/19 documented as of this encounter
--- OUTSIDE RECORDS SUMMARY | 2025-08-16 18:55 | XMS_ITS | Encounter Summary ---
Author Organization [employer] Address [address] [place] [address] 7 [place] [address] Care Team Providers Care Network Systems Operator Name Role Phone Corey Canseco MD Primary Care Prov ider Reason for Visit * Reason Comments Med Refill Encounter Details Date Type Department Care Team (Late Contact Info) Description 03/20/2023 Refill [facility] MED & PEDS [address] [place] [address] Corey Canseco MD [address] [place] [address] Social History Tobacco Use Types Packs/Day Years [...] Department Care Team (Late Contact Info) Description 01/04/2026 8:00 AM EDT Office Visit [facility] ADULT DENTAL [address] [place] [address] Nettie Everett documented as of this encounter Visit Diagnoses Not on filedocumented in this encounter Additional Health Concerns Assessment Noted Time PHQ-9 Depression Total Score: 0 12/20/19 23 9:39 AM EDT documented as of this encounter Care Teams Network Systems Operator Relationship Specialty Start Date End Date Corey Canseco MD [address] [place] [address] PCP - General Internal Medicine 09/09/19 documented as of this encounter
--- OUTSIDE RECORDS SUMMARY | 2025-08-16 18:55 | XMS_ITS | Encounter Summary ---
Author Organization [employer] Address [address] [facility] 7t [place] [address] Care Team Providers Care Internal Corrosion Specialist Name Role Phone Corey Canseco MD Primary Care Prov ider Encounter Details Date Type Department Care Team ([facility] st Contact Info) Description 04/21/2025 Orders Only [facility] CHC MED & PEDS [address] [place] [address] Corey Canseco MD [address] [place] [address] Social History Tobacco Use Types Packs/Day Years [...] Description 01/04/2026 8:00 AM EDT Office Visit [facility] ADULT DENTAL [address] [place] [address] Nettie Everett documented as of this encounter Procedures Procedure Name Priority Date/Time Associated Diagnosis Comments XR LUMBAR SPINE COMPLETE 4+ VIEWS Routine 04/24/2025 12:25 PM EDT documented in this encounter Results * XR Lumbar Spine Complete 4+ Views (04/24/2025 12:25 PM EDT) Anatomical Region Laterality Modality Spine, L-spine Radiographic Kristi ging 04/24/2025 12:2 5 PM EDT Narrative 04/24/2025 2:42 PM EDT [facility] [address] [place] [address] XRay Report Signed Patient: Olive Tobias MR#: [id number] 7 : 1955 Acct:[id number] Age/Sex: 69 / M ADM Date: 04/24/25 Loc: S[facility] Attending Dr: Bennie HUI Ordering Physician: Bennie Morales Date of Service: 04/24/25 Procedure(s): XR lumbar spine 4V min Accession Number(s): [id number] cc: Corey Canseco MD; Bennie Morales EXAMINATION: [...] 04/24/25 1440 DD/ 1225 TD/TT: 04/24/25 1329 [employer]cycle Police: Procedure Note Donotuseinterpreter, Image - 04/24/2025 [facility] [address] [place] [address] XRay Report Signed Patient: Iona Tobias#: [id number] 7 : 6Acct:[id number] Age/Sex: 69 / MADM Date: 04/24/25 Loc: SABR[facility] Attending Dr: Bennie HUI Ordering Physician: Bennie Morales Date of Service: 04/24/25 Procedure(s): XR lumbar spine 4V min Accession Number(s): [id number] cc: Corey Canseco MD; Bennie Morales EXAMINATION: [...] 04/24/25 1440 DD/ 1225 TD/TT: 04/24/25 1329 Motorcycle Police: [facility] External Provider IMG XR PROCEDURES Final Result documented in this encounter Visit Diagnoses Not on filedocumented in this encounter Additional Health Concerns Assessment Noted Time PHQ-9 Depression Total Score: 0 12/01/19 25 9:07 AM EDT documented as of this encounter Care Teams Internal Corrosion Specialist Relationship Specialty Start Date End Date Corey Canseco MD [address] [place] [address] PCP - General Internal Medicine 09/09/19 documented as of this encounter
--- OUTSIDE RECORDS SUMMARY | 2025-08-16 18:55 | XMS_ITS | Clinical Summary ---
Author Organization [employer] Address [address] [place] [address] Care Team Providers Care Worker'S Compensation Claims Examiner Name Role Phone Corey Canseco MD Primary Care Prov ider Allergies Active Allergy Reactions Criticality Noted Date Comments Ferrous Sulfate 10/15/2022 Iron 09/26/2019 Medications * This document contains information received from the source organization and may not represent a complete record from that organization. Easy Touch Lancets 33G/Twist miscIndications: Type 2 diabetes mellitus without complications (HCC) TEST BLOOD SUGAR THREE TIMES DAILY 100 each 5 024 Active metoprolol tartrate (Lopressor) 25 MG tablet Take 1 tablet by mouth 2 times daily. Active montelukast (Singulair) 10 MG tablet TAKE ONE TABLET EVERY EVENING 90 tablet 3 025 Active Alcohol Swabs (Alcohol Prep) 70 % pads USE THREE DAILY 100 each 11 08/14/20 25 10:16 AM EST 025 Active OneTouch Delica Lancets 33G misc 1 Lancet 2 times daily. 60 each 3 025 Active Lancet Devices (Autolet) lancing device 1 each by Other route 2 times daily. 1 each 025 2025 Active albuterol (Ventolin HFA) 108 (90 Base) MCG/ACT inhaler INHALE TWO PUFFS EVERY 4 TO 6 HOURS NEEDED 18 g 5 025 Active gabapentin (Neurontin) 300 MG capsule Take 1 capsule (300 mg) by mouth 2 times daily. 180 capsule 3 025 2025 Active tobramycin-dexAM ETHasone (Tobradex) ophthalmic suspension INSERT ONE DROP IN THE AFFECTED EYE (S) EVERY 6 HOURS 5 mL Active Diclofenac Sodium 1 % gel APPLY TWO GRAMS TO THE AFFECTED AREA(s) THREE TIMES DAILY 100 g Active Blood Glucose Monitoring Suppl (Accu-Chek Guide) w/Device kitIndications:T ype 2 diabetes mellitus without complication, without long-term current use of insulin ([facility]) 1 kit 3 times daily. 1 kit Active glucose blood (Accu-Chek Guide Test) test stripIndications :Type 2 diabetes mellitus without complication, without long-term current use of insulin ([facility]) 1 each by Other route 3 times daily. 270 each 08/14/20 25 10:16 AM EST 025 2025 Active Accu-Chek Softclix Lancets lancetsIndicatio ns:Type 2 diabetes mellitus without complication, without long-term current use of insulin ([facility]) Use as instructed 100 each 08/14/20 25 10:16 AM EST 025 2025 Active atorvastatin (Lipitor) 40 MG tabletIndication s:Mixed hyperlipidemia TAKE ONE TABLET EVERY MORNING 90 tablet 1 Active cyanocobalamin (Vitamin B-12) 1000 MCG tabletIndication s:Vitamin B 12 deficiency TAKE ONE TABLET EVERY MORNING 90 tablet 1 Active cholecalciferol (Vitamin D-3) 25 MCG tabletIndication s:Vitamin D deficiency TAKE ONE TABLET EVERY MORNING 90 tablet 1 Active lisinopril 10 MG tabletIndication s:Primary hypertension TAKE ONE TABLET EVERY MORNING 30 tablet 3 Active tamsulosin (Flomax) 0.4 MG 24 hr capsule TAKE ONE CAPSULE EVERY EVENING 30 capsule 3 Active Eliquis 5 MG tablet TAKE ONE TABLET IN THE MORNING AND EVENING 60 tablet 3 Active flecainide (Tambocor) 50 MG tablet TAKE ONE TABLET IN THE MORNING AND EVENING Active Sodium Fluoride 1.1 % creamIndications :Dental caries [place] teeth for 2 minutes, morning and night. Spit, do not rinse. Do not eat or drink anything for 30 minutes following use. 112 g 3 Active Ozempic, 0.25 or 0.5 MG/DOSE, 2 MG/3ML solution pen-injectorIndi cations:Type 2 diabetes mellitus without complication, without long-term current use of insulin ([facility]) INJECT 0.5mg's SUBCUTANEOUSLY ONCE PER WEEK 3 mL 2 08/14/20 25 10:16 AM EST Active Jardiance 25 MGIndications:Ty pe 2 diabetes mellitus without complication, without long-term current use of insulin ([facility]) TAKE ONE TABLET EVERY MORNING 90 tablet 1 Active celecoxib (CeleBREX) 200 MG capsuleIndicatio ns:Pain TAKE ONE CAPSULE UP TO TWICE DAILY WITH FOOD NEEDED FOR PAIN 60 capsule 1 08/01/20 3:21 PM EST Active cetirizine (ZyrTEC) 10 MG tablet TAKE ONE TABLET EVERY MORNING 90 tablet Active doxycycline (Vibra-Tabs) 100 MG tablet Take 1 tablet (100 mg) by mouth 2 times daily for 7 days. 14 tablet 08/16/20 11:31 AM EST 2024 Active Jardiance 25 MGIndications:Ty pe 2 diabetes mellitus without complication, without long-term current use of insulin ([facility]) TAKE ONE TABLET EVERY MORNING 90 tablet 1 025 2024 Discontinued(R eorder (will not trigger notification to Pharmacy)) cetirizine (ZyrTEC) 10 MG tablet TAKE ONE TABLET EVERY MORNING 90 tablet 025 2024 Discontinued celecoxib (CeleBREX) 200 MG capsuleIndicatio ns:Pain TAKE ONE CAPSULE UP TO TWICE DAILY WITH FOOD NEEDED FOR PAIN 60 capsule 1 025 2024 Discontinued doxycycline (Vibra-Tabs) 100 MG tablet Take 1 tablet (100 mg) by mouth 2 times daily for 10 days. Take with a full glass of water and do not lie down for at least 30 minutes after. 20 tablet 025 2024 Active Problems Problem Noted Date Diagnosed Date [...] Blood work done today at [facility] Told to continue oral antyhypertensives the [...] (03/07/2024 2:26 PM EDT): Will refer to [facility] Assessment & Plan (11/30/2023 10:07 PM [...] treatment. PLAN: 1. Follow up with [facility] [place]: Recommended for follow-up: During AUD appt 2. [...] goal. PLAN: 1. Follow up with [facility] [place]: Recommended for follow-up: 08/27/24 at 9am 2. [...] and alcohol use. Patient will benefit from [facility] follow up for support, patient declined interest in longterm therapy. At this time Olive Tobias meets criteria for Visit Diagnoses: Problem List Items Addressed This Visit Other Alcohol abuse RUMA (generalized anxiety disorder) Patient ready to address current needs Yes Strengths include willing to continue to be engage with [facility] PLAN: 1. Follow up with [facility] [place]: Recommended for follow-up: 07/02/23 at 9:30 am [...] treatment. PLAN: 1. Follow up with [facility] [place]: Recommended for follow-up: During AUD appt 2. [...] as patient requested and discussed with his telephone quotation clerk, discussed with patient risk vs benefits, follow [...] organization. Date Type Department Care Team Description 08/16/2025 9:45 AM EST Office Visit [facility] [address] [place] [address] Susanne Berger MD Localized swelling of left thumb (Primary Dx); Primary hypertension 08/16/2025 Telephone [facility] [address] [place] [address] Corey Canseco MD Insurance 08/16/2025 Travel 08/16/[address] [facility] [address] [place] [phone] Corey Canseco MD Nurse Triage 07/25/2025 Refill [facility] [address] [place] [address] Corey Canseco MD 07/24/2025 9:00 AM EST Office Visit [facility] [address] [place] [address] Akira Chun DMD Dental caries (Primary Dx); Periodontal disease 07/22/2025 Refill [facility] [address] [place] [address] Corey Canseco MD Pain 07/21/2025 Refill [facility] [address] [place] [address] Corey Canseco MD Type 2 diabetes mellitus without complication, without long-term current use of insulin ([facility]) 07/18/2025 2:30 PM EST Office Visit [facility] [address] [place] [address] Akira Chun DMD Dental caries (Primary Dx) 07/13/2025 Refill [facility] [address] [place] [address] Corey Canseco MD Type 2 diabetes mellitus without complication, without long-term current use of insulin ([facility]) 07/11/2025 1:15 PM EDT Telemedicine [facility] [address] [place] [address] Corey Canseco MD Cellulitis of left lower extremity (Primary Dx); Dietary counseling; Exercise counseling 07/11/2025 Travel 07/11/[address] [facility] [address] [place] [address] Corey Canseco MD Nurse Triage 07/05/2025 9:00 AM EDT Office Visit [facility] [address] [place] [address] Salma Valadez Dental caries (Primary Dx) 07/04/2025 9:30 AM EDT Office Visit [facility] [address] [place] [address] Devi Jones MD Left leg cellulitis (Primary Dx); Type 2 diabetes mellitus with other diabetic kidney complication, with long-term current use of insulin (HCC); Encounter for immunization 07/04/2025 Orders Only [facility] [address] [place] [address] ProviderМарина MD 07/04/2025 Travel 07/04/[address] [facility] [address] [place] [address] Corey Canseco MD Nurse Triage 06/28/2025 Orders Only GENERIC EXTERNAL DATA DEPARTMENT Provider, Generic External Data 06/23/2025 Refill [facility] [address] [place] [address] Corey Canseco MD Primary hypertension 2025 Refill [facility] [address] [place] [address] Cliff Damon MD Vitamin B 12 deficiency; Vitamin D deficiency 05/29/2025 Travel 05/27/2025 Refill [facility] [address] [place], [place] [phone] Corey Canseco MD Mixed hyperlipidemia from Last 3 Months Immunizations Immunization Administration [...] 20 08/16/2025 10:00 AM EST Oxygen Saturation 98% 04/21/2025 8:55 AM EDT Inhaled Oxygen Concentration - - Weight 130 kg (287 lb) 08/16/2025 10:00 AM EST Height 170.2 cm (5' 7 ) 07/04/2025 9:46 AM EDT Body Mass Index 44.95 07/04/2025 9:46 AM EDT Plan of Treatment Upcoming Encounters Date Type Department Care Team (Late st Contact Info) Description 01/04/2026 8:00 AM EDT Office Visit [facility] [address] [place] [address] Nettie Everett Health Maintenance Due Date Last Done Comments CT Colonography 1955 FIT DNA/Cologuard 1955 FIT 1955 FOBT 1955 Sigmoidoscopy 1955 Diabetes: Foot Exam 10/28/2024 10/28/2023, 10/28/2023, 10/28/2023, Additional history exists COVID-19 Vaccine ( season) 2025 06/10/2024, 06/11/2023, 07/07/2022, Additional history exists Dental X-Ray: Bitewings 11/03/2025 11/02/19 25, 04/15/2024, 09/16/2023, Additional history exists Alcohol/Substance Use Screening 11/30/2025 11/30/2024 SDOH Screening 11/30/2025 11/30/2024 Diabetes: Hemoglobin A1C 01/02/2026 025, 04/21/2025, 11/30/2024, Additional history exists Dental Oral Exam 01/04/2026 07/05/2025, 10/2023, 09/16/2023 Dental Prophylaxis 01/04/2026 07/05/2025, 0 11/02/2024, 04/15/2024, Additional history exists Depression Screening 05/29/2026 05/29/2025, 05/29/20 Eye Exam 07/04/2026 07/04/2025, 11/10/2024 Lipid Panel 07/04/2026 07/04/2025, 0309/2024, 10/28/2023, Additional history exists Tobacco Screening 08/16/2026 08/16/2025 Dental X-Ray: Full Mouth 09/17/2026 09/16/2023 DTaP/Tdap/Td [...] on patient's age to complete this topic Goals Goal Patient Goal Type Associated Problems [...] chronic kidney disease No Susanne Berger MD Procedures Procedure Name Priority Date/Time Associated Diagnosis Comments 15 EXTRACTION, ERUPTED TOOTH OR EXPOSED ROOT (ELEVATION/FORCEPS REMOVAL) Routine 07/24/2025 9:00 AM EST Dental caries Periodontal disease 11 MF RESIN-BASED COMPOSITE - 2 SURF, ANTERIOR Routine 07/18/2025 2:30 PM EST Dental caries 10 F RESIN-BASED COMPOSITE - 1 SURF, ANTERIOR Routine 07/18/2025 2:30 PM EST Dental caries 9 F(V) RESIN-BASED COMPOSITE - 1 SURF, ANTERIOR Routine 07/18/2025 2:30 PM EST Dental caries 8 DIF RESIN-BASED COMPOSITE - 3 SURF, ANTERIOR Routine 07/18/2025 2:30 PM EST Dental caries PERIODIC ORAL EVALUATION - ESTABLISHED PATIENT Routine 07/05/2025 9:00 AM EDT Dental caries PROPHYLAXIS - ADULT Routine 07/05/2025 9 :00 AM EDT Dental caries HM DIABETES EYE EXAM Routine 07/04/2025 2:21 [...] with long-term current use of insulin (HCC) LOWER EXTREMITY VENOUS DUPLEX LEFT Routine 06/28/2025 12:00 PM EDT HIGH SENSITIVITY TROPONIN I Routine 06/28/2025 11:53 AM EDT MAGNESIUM Routine 06/28/2025 11:53 AM EDT COMPREHENSIVE METABOLIC PANEL Routine 06/28/2025 11:53 AM EDT CBC WITH AUTO DIFFERENTIAL Routine 06/28/2025 11:53 AM EDT BITEWINGS - 4 RADIOGRAPHIC IMAGES Routine 11/02/2024 9:00 AM EST INTRAORAL - COMPLETE SERIES OF RADIOGRAPHIC IMAGES [...] Blood Count 5.4 4.8 - 10.8 X10*3/uL [facility] Red Blood Count 5.18 4.60 - 5.80 X10*6/uL [facility] Hemoglobin 14.7 14.0 - 18.0 g/dl [facility] Hematocrit 46.0 42.0 - 52.0 % [facility] Mean Corpuscular Volume 88.8 80.0 - 98.0 fL [facility] Mean Corpuscular Hemoglobin 28.4 27.0 - 33.0 pg [facility] Mean Corpuscular HGB Conc 32.0 31.0 - 36.0 g/dl [facility] Red Cell Distribution Width 14.8 11.0 - 16.0 % [facility] Platelet Count 168 160 - 400 X10*3/uL [facility] Mean Platelet Volume 9.2(L) 9.4 - 12.4 fL [facility] Neutrophils Percent Auto 71.6 45 - 73 % [facility] Imm Gran Pct Auto 0.9(H) 0.0 - 0.4 % [facility] Lymphocytes Percent Auto 17.6(L) 20 - 40 % [facility] Monocytes Percent Auto 7.8 2 - 11 % [facility] Eosinophils Percent Auto 1.9 0 - 4 % [facility] Basophils Percent Auto 0.2 0 - 2 % [facility] NRBC Pct Auto 0.0 0.0 - 0.2 /100WBC [facility] Neutrophils Absolute Auto 3.9 2.0 - 8.3 x10*3/uL [facility] Imm Gran Abs Auto 0.05(H) 0.00 - 0.03 X10*3/uL [facility] Lymphocytes Absolute Auto 1.0(L) 1.2 - 4.9 X10*3/uL [facility] Monocytes Absolute Auto 0.4 0.1 - 1.2 X10*3/uL [facility] Eosinophils Absolute Auto 0.1 0.0 - 0.4 X10*3/uL [facility] Basophils Absolute Auto 0.0 0.0 - 0.2 X10*3/uL [facility] NRBC Abs Auto 0.000 0.0 - 0.012 X10*3/uL [facility] 07/04/2025 11:0 5 AM EDT 07/04/2025 2:44 PM EDT us Corey Carcamo MD LAB BLOOD ORDERABL ES Final Result [facility] [address] [place] [phone] * (ABNORMAL) Hemoglobin A1c (07/04/2025 11:05 AM EDT) Hemoglobin A1c 6.7(H) <6.0 % [facility] Comment:Hemoglobin A1C Refer ence Range Adults: 4.8 - 6.0 % Non diabetic: < 6.0 % Goal: < 7.0 %Additional Action Suggested: > 8.0 %Note: Hemoglobin A1c results are invalid for patients with abnormal amounts of HbF. Blood transfusions may impact the HbA1c concentration in the patient sample. Estimated Average Glucose 146 mg/dL [facility] Comment:eAG = Estimated ave rage glucose which is %A1C expressed asaverage glucose, using the formula of the X0I-TcmegocNbormnt Glucose study (ADAG), Diabetes Care, Vol.31,#8,Apr. 2007 07/04/2025 11:0 5 AM EDT 07/04/2025 2:44 PM EDT Corey Carcamo MD LAB BLOOD ORDERABL ES Final Result Performing Organization Address City/[facility] Co de Phone Number [facility] [address] [place] [address] [phone] * (ABNORMAL) Lipid Panel, Standard (07/04/2025 11:05 AM EDT) Triglycerides 238(H) <150 mg/dL [facility] Comment:Slight Lipemia.Lyric able Triglyceride: less than 150 mg/dLBorderline High Triglyceride 150-199 mg/dLHigh Triglyceride: 200-499 mg/dLVery High Triglyceride: greater than or equal to 5OO mg/dL Cholesterol 138 <200 mg/dL [facility] Comment:Desirable Cholestero l: less than 200 mg/dLBorderline High Cholesterol: 200-239 mg/dLHigh Cholesterol: greater than 239 mg/dL LDL Cholesterol Calculated 58 <100 mg/dL [facility] Comment:Desirable LDL: less than 100 mg/dLNear Optimal/Above Optimal LDL: 110- 129 mg/dLBorderline High LDL: 130-159 mg/dLHigh LDL: 160-189 mg/dLVery High LDL: greater than or equal to 190 mg/dL HDL Cholesterol 33(L) >40 mg/dL [facility] Comment:Desirable HDL: great er than 40 mg/dL Note: This HDL assay may give artificially low results in patients with liver disease. 07/04/2025 11:0 5 AM EDT 07/04/2025 2:21 PM EDT us Corey Carcamo MD LAB BLOOD ORDERABL ES Final Result [facility] [address] [place] [phone] * (ABNORMAL) Comprehensive Metabolic Panel (07/04/2025 11:05 AM EDT) Only the most recent of2 resultswithin the time period is included. Sodium 140 135 - 145 mmol/L [facility] Potassium 4.1 3.3 - 5.1 mmol/L [facility] Chloride 108 96 - 108 mmol/L [facility] Carbon Dioxide 24 22 - 29 mmol/L [facility] Anion Gap 12 12 - 20 [facility] Urea Nitrogen (BUN) 15 9 - 16 mg/dL [facility] Creatinine, Serum 0.87 0.5 - 1.4 mg/dL [facility] Estimated Glomerular Filt Rate >60 [facility] Comment:Chronic Kidney Disea se: Estimated GFR < 60 mL/min/1.39w4Mvbtxc Kidney Disease: Estimated GFR < 15 mL/min/1.73m2 Glucose 163(H) 60 - 115 mg/dL [facility] Calcium 8.9 8.4 - 10.2 mg/dL [facility] Bilirubin, Total 0.5 0.0 - 1.0 mg/dL [facility] Aspartate Amino Transferase 35 5 - 37 U/L [facility] Alanine Aminotransferase 30 0 - 40 U/L [facility] Total Protein 7.4 6.5 - 8.0 g/dL [facility] Albumin Level 4.3 3.5 - 5.0 g/dL [facility] Alkaline Phosphatase 116 39 - 117 U/L [facility] 07/04/2025 11:0 5 AM EDT 07/04/2025 2:21 PM EDT us Corey Carcamo MD LAB BLOOD ORDERABL ES Final Result Performing Organization Address [facility]/ZIP Co de Phone Number [facility] [address] [place] [phone] [phone] * (ABNORMAL) POCT Glucose (07/04/2025 9:47 AM EDT) Glucose Blood, POC 281(A) 60 - 200 mg/dL [employer] Media Lot # [id number] Lot# Expiration Date Blood Capillary blood specimen / Unknown 07/04/2025 9:47 AM EDT Devi Jones MD POINT OF CARE TEST ENTER/EDIT OR DERABLES Final Result * Lower Extremity Venous Duplex (06/28/2025 12:00 PM EDT) 06/28/2025 12:0 0 PM EDT Narrative [facility] - 06/28/2025 1:03 PM EDT [place] [address] Ultrasound Report Signed Patient: Olive Tobias MR#: [id number] 7 : 1955 Acct:[id number] Age/Sex: 70 / M ADM Date: 06/28/25 Loc: .ED Attending Dr: Ordering Physician: Rahel Jiménez Date of Service: 06/28/25 Procedure(s): US venous duplex LE Accession Number(s): [id number] cc: Corey Canseco MD; Rahel Jiménez Reason [...] 06/28/25 1300 DD/ 1200 TD/TT: 06/28/25 1224 Zipper Setter Chainstitch: NANCY Procedure Note Donotuseinterpreter, Image - 06/28/2025 [place] [address] Ultrasound Report Signed Patient: Iona Tobias#: [id number] 7 : 6Acct:[id number] Age/Sex: 70 / MADM Date: 06/28/25 Loc: .ED Attending Dr: Ordering Physician: Rahel Jiménez Date of Service: 06/28/25 Procedure(s): US venous duplex LE LT Accession Number(s): [id number] cc: Corey Canseco MD; Rahel Jiménez Reason [...] 06/28/2025 01:00 PM EDT RP Dictated By: Flaok Dhaliwal MD Signed By: <Electronically signed by Flako Dhaliwal MD in OV> 06/28/25 1300 DD/ 1200 TD/TT: 06/28/25 1224 Zipper Setter Chainstitch: NANCY [facility] External Provider CV VASC ULAR PROCEDURES Final Result Performing Organization Address City/[facility]/ZIP Co de Phone Number [facility] [address] [place] [address] * High Sensitivity Troponin I (06/28/2025 11:53 AM EDT) [facility] TROPONIN I HIGH SENSITIVITY <2.7 <3.5 - 35.0 ng/L [facility] Comment:The [place] high sens itivity Troponin-I results should beused in conjunction with other diagnostic information suchas ECG, clinical observations and information, and patientsymptoms to aid in the diagnosis of NC. 06/28/2025 11:5 3 AM EDT 06/28/2025 11:56 AM EDT Generic External Data Provider LAB BLOOD ORDERAB LES Final Result Performing Organization Address [facility]/ZIP Co de Phone Number [facility] [address] [place] [phone] * Magnesium (06/28/2025 11:53 AM EDT) Magnesium 2.0 1.6 - 2.6 mg/dL [facility] 06/28/2025 11:5 3 AM EDT 06/28/2025 11:56 AM EDT Generic External Data Provider LAB BLOOD ORDERAB LES Final Result [facility] [address] [place] [address] [phone] * Hm Colonoscopy (04/10/2023 12:03 PM EDT) Марина Provider HEALTH MAINTENANCE Final Result * Hepatitis C Antibody with Reflex to HCV, RNA, Quantitative, Real-Time PCR (09/24/2022 10:33 AM EST) Hepatitis C Antibody NON-REACT MARK NON-REACT MARK [facility] Index <0.02 <1.00 [facility] Comment: HCV antibody was non-reactive. There is no laboratory evidence of HCV infection. In most cases, no further action is required. However, if recent HCV exposure is suspected, a test for HCV RNA (test code 11582) is suggested. For additional information please refer to http://education.8aweek.Automsoft/faq/CXY52h9 (This link is being provided for informational/ educational purposes only.) 09/24/2022 10:3 3 AM EST 09/24/2022 10:33 AM EST Narrative [facility] - 09/24/2022 9:25 PM EST FASTING:NO FASTING: NO Corey Carcamo MD LAB BLOOD ORDERABL ES Final Result [employer] [address] [place] [address], [facility], [place] [address] [employer] [place] [email or web address] [address] [facility], ([address]) [place] [address] from Last 3 Months or Most Recently Relevant to Health Maintenance Additional Health Concerns Active Problems Noted Date [...] 08/16/2025 Patient has chronic kidney disease 08/16/2025 Insurance [facility] MEDICARE ADVANTAGE HMO [facility] Care Teams Worker'S Compensation Claims Examiner Relationship Specialty Start Date End Date ChambersCorey Grace MD [address] [place] [phone] PCP - General Internal Medicine 09/09/19
--- OUTSIDE RECORDS SUMMARY | 2025-08-16 18:55 | XMS_ITS | Encounter Summary ---
Author Organization [employer] Address [address] [place] [address] [address] [place] [address] Care Team Providers Care Farm Machine Tender Name Role Phone Corey Canseco MD Primary Care Prov ider Encounter Details Date Type Department Care Team (Latest Contact Info) Description 09/26/2019 Abstract [facility] CONVERSIONS Dental, Provider, DDS Social [...] Description 01/04/2026 8:00 AM EDT Office Visit [facility] [address] [place] [address] Nettie Everett documented as of this encounter Visit Diagnoses Not on filedocumented in this encounter Care Teams Farm Machine Tender Relationship Specialty Start Date End Date Corey Canseco MD [address] [place] [address] PCP - General Internal Medicine 09/09/19 documented as of this encounter
== END 2025-08-16 16:18 | disposition home or self-care (01) ==
LOC: HO.CHCLNP 16:17
PROVIDERS: PCP Pediatrics; Visit Provider Pediatrics
DX: R22.32 Localized swelling, mass and lump, left upper limb (principal)
CPT/HCPCS: 87070; 87205